=== PATIENT | female | born 1935 | race Caucasian/White ===

== ENCOUNTER → 2020-03-19 10:00 | Outpatient (BNVA) | payer MEDICARE, MEDICAID, SELFPAY | PROVIDERS: Family Provider Nurse Practitioner Family; PCP Nurse Practitioner Family; Visit Provider Internal Medicine Cardiovascular Disease | DX: D64.9 Anemia, unspecified (principal); I48.20 Chronic atrial fibrillation, unspecified; I50.42 Chronic combined systolic (congestive) and diastolic (congestive) heart failure | CPT/HCPCS: 80048; 85025 ==

== ENCOUNTER → 2020-04-14 09:57 | Outpatient (BNVA) | payer MEDICARE, MEDICAID, SELFPAY | PROVIDERS: Family Provider Nurse Practitioner Family; PCP Nurse Practitioner Family; Visit Provider Internal Medicine Cardiovascular Disease | DX: I50.42 Chronic combined systolic (congestive) and diastolic (congestive) heart failure (principal); I42.0 Dilated cardiomyopathy; I48.20 Chronic atrial fibrillation, unspecified | CPT/HCPCS: 80048 ==

== ENCOUNTER 2020-07-08 15:45 | Outpatient (CLI) | payer MEDICARE, MEDICAID, SELFPAY ==
[2020-07-08 16:43] LABS: Basophils % 0.6 %; Eosinophils # 0.1 10^3/uL (0.0-0.8); Eosinophils % 1.4 %; Hematocrit 30.2 % (37.0-47.0); Hemoglobin 7.9 g/dL (11.5-15.3); Lymphocytes # 0.9 10^3/uL (0.8-4.8); Lymphocytes % 12.3 %; Mean Corpuscular HGB Conc 26.2 g/dL (30.0-36.0); Mean Corpuscular Hemoglobin 20.3 pg (28.0-34.0); Mean Corpuscular Volume 77.4 fL (81-99); Mean Platelet Volume 11.9 fL (7.4-10.4); Monocytes # 0.8 10^3/uL (0.2-0.9); Monocytes % 11.5 %; Neutrophils # 5.33 10^3/uL (1.8-7.7); Neutrophils % 73.9 %; Nucleated Red Blood Cells % 0 %; Platelet Count 223 10^3/cmm (130-400); Red Cell Distribution Width 20.7 % (12.1-15.1); White Blood Count 7.2 10^3/uL (4.0-10.0)
[2020-07-08 17:00] LABS: Anion Gap 15.9 (5-19); Blood Urea Nitrogen 39 mg/dL (8-23); Calcium 8.5 mg/dL (8.5-10.5); Carbon Dioxide 22 mmol/L (22-29); Chloride 105 mmol/L (98-107); Ferritin 12 ng/mL (15-150); Glucose 124 mg/dL (65-115); Iron 19 ug/dL (37-145); Osmolality Calculated 299 mOsm/kg (285-295); Potassium 3.9 mmol/L (3.5-5.1); Sodium 139 mmol/L (136-145); Total Iron Binding Capacity 373 mcg/dl; Unsaturated Iron Binding 354 ug/dL (112-347)
[2020-07-08 17:17] LABS: Vitamin B12 819 pg/mL (232-1245)
[2020-07-08 19:30] LABS: Add RBC Morph Yes; Slide Review Slide Review Perform
[2020-07-08 19:31] LABS: RBC Morph Comp No
[2020-07-08 19:46] LABS: Anisocytosis 1+; Hypochromasia 1+; Microcytosis 2+; Poikilocytosis 1+; Target Cells 1+; Tear Drop Cells 1+
== END 2020-07-08 15:46 | disposition home or self-care (01) ==
LOC: LAB 15:49
PROVIDERS: PCP Nurse Practitioner Family; Visit Provider Nurse Practitioner Family
DX: D50.0 Iron deficiency anemia secondary to blood loss (chronic) (principal); I50.22 Chronic systolic (congestive) heart failure
CPT/HCPCS: 80048; 82607; 82728; 83540; 83550; 84443; 85025

== ENCOUNTER → 2020-07-14 07:45 | Day surgery (SDC) | payer MEDICARE, MEDICAID, SELFPAY ==
[2020-07-14 08:31] VITALS: BMI 28.5
[2020-07-14] MEDS: acetaminophen 325 mg Tablet 650 MG PO (10:50)
[2020-07-14] MEDS: diphenhydrAMINE 50 mg/mL SDV 1mL 25 MG IVP (10:51)
[2020-07-14 11:02] VITALS: BP 133/112; PULSE 135; RESP 20; TEMP 36.8; O2SAT 99
--- NOTE | 2020-07-14 11:18 | SUR.PREOP ---
blood was ready for patient. when I returned to start the blood, the pt is in afib with rate at 130-144. Pt has no symptoms. Le Carrizales contacted. She will consult with cardiology for her to be seen while she is here. I was instructed to hold off on starting transfusion. I also told her that her Hgb is 8.2. Pt placed on manager of selection and assessment until able to be seen by cardiology.
[2020-07-14 12:08] VITALS: BP 119/87; PULSE 114; RESP 18; O2SAT 95
--- NOTE | 2020-07-14 12:11 | SUR.PREOP ---
Just spoke with Le Carrizales, order received for 40mg IVP Lasix if patient hasnt already taken home dose, 20mg Labetolol IVP X1, Only transfuse 1 unit.
[2020-07-14] MEDS: labetalol 5 mg/mL SDV 20mL 20 MG IVP (12:30)
--- NOTE | 2020-07-14 14:31 | SUR.PREOP ---
Patient received 10mg Labetalol IVP, blood pressure at 113/96 before admin., 98/74 after 10mg. Did not administer the other 10mg. Heart rate still at 115. OPS policy states we do not transfuse to patients with unstable HR over 100. I advised the patient of this and that she needed to go to the ER for her uncontrolled HR. She stated she really did not want to go to the ER. She requested that I speak with the ordering MOBILITY SCOOTER REPAIRER. I called Le Jamisonkins and reported the medication dose that I administered, what her BP and HR are and our policy that she needed to go to the ER and we were unable to start her blood in our dept. Order received to discharge the patient home, that she will call the patient later after she was home to speak with her about medications and monitoring her BP at home. Pt was agreeable with this order. Pt discontinued from IV, left in wheelchair from admission. Pt discharged to her brother, awake and alert.
== END ==
PROVIDERS: PCP Nurse Practitioner Family; Visit Provider Nurse Practitioner Family
DX: D50.0 Iron deficiency anemia secondary to blood loss (chronic) (principal)
CPT/HCPCS: 86850; 86900; 86920; 96374; 96375; J1200; J3490; P9016

== ENCOUNTER 2021-01-05 22:37 | Inpatient (IN) | payer MEDICARE, MEDICAID, SELFPAY ==
[2021-01-05 22:50] VITALS: BP 96/69; PULSE 84; RESP 16; TEMP 36.5; O2SAT 98; BMI 28.1
--- NOTE | 2021-01-05 23:12 | XRR_ITS ---
PROCEDURE INFORMATION: Exam: XR Chest Exam date and time: 01/05/2021 11:14 PM Age: 85 years old Clinical indication: Shortness of breath; Patient HX: SOB; Additional info: SOB - vard to read please TECHNIQUE: Imaging protocol: XR of the chest. Views: 1 view. COMPARISON: CR Chest 1 [place] [id number] 09/01/2019 1:35 PM FINDINGS: Lungs: Unremarkable. No consolidation. Pleural spaces: Small left pleural effusion. Heart/Mediastinum: There is mild cardiomegaly. Bones/joints: Unremarkable. XR/XR chest 1V portable [id number] IMPRESSION: 1. Mild cardiomegaly. 2. Small left pleural effusion.
--- NOTE | 2021-01-05 23:12 | ECG_ITS ---
[facility] Test Date: 2021-01-05 Pat Name: Janelle Riley Department: Room: Gender: Female Family Practice Nurse Practitioner: : 1935 Requested By: Glo Perla Order Number: [id number] Mera MD: Leigh Ann Morin M.D. Measurements Intervals Lynx Rate: 110 P: KS: QRS: 209 QRSD: 111 T: 87 QT: 350 QTc: 475 Interpretive Statements ATRIAL FIBRILLATION WITH RAPID VENTRICULAR RESPONSE RIGHT AXIS DEVIATION [QRS AXIS > 100] LOW QRS VOLTAGE [QRS DEFLECTION < 0.5/1.0 mV IN LIMB/CHEST LEADS] POSSIBLE ANTERIOR MYOCARDIAL INFARCTION , OF INDETERMINATE AGE [30 ms Q WAVE IN V3/V4, OR R < 0.2 mV IN V4] INFERIOR MYOCARDIAL INFARCTION , PROBABLY OLD [40+ ms Q WAVE AND/OR ST/T ABNORMALITY IN II/aVF] No previous ECG available for comparison Electronically Signed On 01-06-2021 21:07:41 CDT by Leigh Ann Morin M.D. [id number] f
--- NOTE | 2021-01-05 23:15 | ED_ITS ---
HPI - SOB/Dyspnea General: Chief Complaint: Extremity Problem,Nontraumatic Stated Complaint: PT STATES GOUT CAUSING DIFF WALKING Time Seen by Provider: 01/05/21 22:44 Source: patient and family (brother) Mode of arrival: wheelchair History of Present Illness: HPI Narrative: 85-year-old female patient presents to the emergency department with right lower extremity pain. She reports history of gout flares. Her brother, who brought her to the ED, reports increased weakness x24 hours, had to break in her house and get her off the couch because she could not get up . She lives alone. Her brother reports she he has noted increased shortness of breath x5 days. She has known congestive heart failure, gout and chronic anemia that requires blood transfusions at times. He reports has been a while since she has last received blood, states her shortness of breath is very concerning and states she cannot take care of herself at home due to shortness of breath and weakness. Janelle reports this morning, she noted increased pain of the right foot. She states got up out of bed and fell. She denies injury or loss of consciousness. remembers the incident that occurred and why she fell. She denies fever or chills. She reports Tylenol and ibuprofen is not enough to help with pain. Janelle reports increased swelling of the BLE for several days - not able to take lasix today due to inability to carry herself to the bathroom she reports attempted to utilize a walker but has not helped with ambulation and pain. MD elicited complaint: shortness of breath Pertinent past history: congestive heart failure Onset (ago): day(s) Timing: progressively worsening Severity: moderate Exacerbating factors: exertion and movement Relieving factors: rest Known history of: congestive heart failure Associated symptoms: Reports cough, extremity pain (RLE) and orthopnea; Deny abdominal pain, chest congestion, chest pain, diaphoresis, fever(s), lightheadedness, nausea, palpitations, syncope or vomiting Treatment prior to arrival: none Review of Systems General: Reports: 10 or more systems reviewed and unremarkable except in HPI and below Const: Reports: fatigue and malaise; Denies: fever(s), chills or diaphoresis Eyes: Denies: blurry vision, eye discomfort, eye redness or yellow eyes ENMT: Denies: throat pain, dental pain, disequilibrium, nasal discharge or nasal congestion Card: Reports: edema, swelling of feet/ankles, dyspnea on exertion, orthopnea and leg pain with exertion; Denies: chest pain, palpitations, irregular heart rhythm, lightheadedness, syncope or pre-syncope Resp: Reports: dyspnea and non-productive cough; Denies: productive cough, wheezing, pain on inspiration, change in phlegm color or chest congestion GI: Denies: abdominal pain, nausea, vomiting, hematemesis, dysphagia, heartburn, diarrhea or constipation : Denies: difficulty voiding or dysuria Musc: Reports: extremity pain (RLE), extremity swelling, joint pain, joint swelling and muscle weakness Skin/Breast: Reports: erythema and changes in skin color; Denies: rash or pruritus Neuro: Denies: headache(s), weakness in extremities or behavioral changes Psych: Denies: anxiety or depression Paul/Lymph: Denies: easy bruising PFSH ED PFSH: Medical History (Updated 01/06/21 @ 01:22 by NICHOLAS Strong) LIZABETH inhibitor intolerance Anemia Anemia Aortic stenosis MILD Atrial fibrillation, chronic Cardiomyopathy 35-40% CHF (congestive heart failure) COPD (chronic obstructive pulmonary disease) Dizziness Paroxysmal A-fib Pulmonary hypertension Surgical History (Updated 01/06/21 @ 01:08 by Chava Eduardo MD) History of cardiac catheterization Hx of hysterectomy S/P bladder repair S/P hysterectomy Family History Mother CAD (coronary artery disease) Myocardial infarction Father CAD (coronary artery disease) Social History Smoking and tobacco status: former smoker Alcohol intake: never Physical Exam Const: COMMON NORMALS: patient oriented x3 and alert GENERAL APPEARANCE: cooperative, ill appearing and frail appearing; not lethargic ORIENTATION/CONSCIOUSNESS: Yes awake, Yes oriented to person, Yes oriented to place and Yes oriented to time; not confused, not patient obtunded and not lethargic HENMT: COMMON NORMALS: normocephalic, atraumatic, external ears normal and moist oral mucous membranes HEAD & SCALP: normal to inspection, normocephalic, atraumatic and Acrocyanosis present FACE & SINUS: face symmetric and Acrocyanosis present; no erythema and no laceration NOSE: Normal nares present EXTERNAL EAR: Yes external ears normal MOUTH: Normal oral and palatal mucosa present Eye: COMMON NORMALS: Equal, round and reactive pupils present and EOMs intact bilaterally GENERAL EYE: appearance normal, both eyes and all related structures PUPIL: Yes Equal, round and reactive pupils present Neck/C-Spine: COMMON NORMALS: full ROM and no lymphadenopathy GENERAL: Yes normal visual inspection and Yes trachea midline CERVICAL SPINE: Yes cervical ROM normal Lymph: LYMPHATIC: no lymphadenopathy noted Chest: COMMONS NORMALS: normal inspection of the chest and normal palpation of entire chest wall Resp: COMMON NORMALS: normal respiratory effort EFFORT & INSPECTION: Yes able to speak in complete sentences, Yes symmetric chest movement, Yes tachypneic, No respiratory distress, Yes labored and No audible wheezes AUSCULTATION: diminished lung sounds bilateral in the lower lung méndez Cardio: COMMON NORMALS: regular rate, S1 normal heart sound present, S2 normal heart sound present and Peripheral pulses 2+ throughout RATE: regular rate RHYTHM: abnormal rhythm irregularly irregular HEART SOUNDS: S1 normal heart sound present and S2 normal heart sound present PERIPHERAL PULSES: Peripheral pulses 2+ throughout GI: COMMON NORMALS: Soft to palpation and non-tender INSPECTION: Yes normal to inspection, No abdominal wall ecchymosis, No abdominal distension and No visible herniation PALPATION: Yes Soft to palpation : COMMON NORMALS: Yes no CVA tenderness BLADDER/KIDNEY EXAM: Yes no CVA tenderness Back/Pelvis: COMMON NORMALS: no CVA tenderness and thoracic and lumbar spine normal to inspection Extremity: COMMON NORMALS: normal to inspection, capillary refill normal and no calf tenderness GENERAL: Yes normal exam except as noted OTHER: erythema of the rt foot with extension to the akle and lower tib/fib - 1st MTP with erythema and pain, rt foot and ankle tenderness noted, limited dorsi flexion and extension. Right lower extremity with 3+ pitting edema, left lower extremity with 2+ pitting edema, negative calf tenderness bilateral. Neuro: COMMON NORMALS: patient oriented x3 and no focal motor deficits SENSORIUM/ORIENTATION: Yes alert, Yes oriented to person, Yes oriented to place, Yes oriented to time and No lethargic Psych: COMMON NORMALS: mental status grossly normal, Normal thought process present and cooperative ACTIVITY/MOTOR BEHAVIOR: Yes appropriate eye contact THOUGHT PROCESS: Normal thought process present Skin: COMMON NORMALS: turgor normal and no mottling GENERAL SKIN EXAM: turgor normal and ecchymosis (Scattered petechial rash to the face, torso) RASHES: rashes noted (linear with tracking, appears as scabies, back and buttocks) scab Rash type: Yes erosion Rash distribution: Yes linear and Yes clustered Rash surface: Yes dry Rash tenderness: Yes nontender Course Consultations: Consultation #1: Dr Eduardo, hospitalist, discussed history of present illness, patient's weakness and inability to stand/walk, serology and radiology results discussed as well as patient's history of congestive heart failure and pulmonary hypertension. BNP was found to be elevated, patient with atrial fibrillation, congestive heart failure exacerbation, agrees to admit, advised treat scabies with ivermectin, medication is not on formulary, she will be treated with Elimite instead. Time: 01:10 Vital Signs: Vital signs: Vital Signs Temperature 97.7 F 01/05/21 22:50 Pulse Rate 80 01/06/21 01:12 Respiratory Rate 20 H 01/06/21 01:12 Blood Pressure 115/80 01/06/21 01:12 Pulse Oximetry 99 01/06/21 01:12 MDM - SOB/Dyspnea MDM Narrative: Medical decision making narrative: 85-year-old female patient presents to the emergency department with profound weakness, her brother had to break down the door to her home to pick her up off the couch as she could not stand or ambulate. She does live alone. She is found to have gouty arthritis versus cellulitis to the right lower extremity; white blood count elevated 12.9, she did receive her first dose of Rocephin here in the ED. Patient with atrial fibrillation with RVR, heart rate 124-130, IV Cardizem dosed with blood pressure dropped to 89 systolic. She received 500 cc normal saline which helped her blood pressure, normotensive. Chest x-ray revealed small left pleural effusion with cardiomegaly. BNP elevated 9273; CMP with elevated creatinine 2.0. Uric acid 11.4; lactate 1.9. Ultrasound right lower extremity completed secondary to erythema to the distal extremity and increased girth; negative DVT appreciated, she remains on Eliquis due to atrial fibrillation and stroke risks. Chronically anemic with history of transfusions secondary to ROBERT. Hemoglobin 10.5/36.6 hematocrit. Spoke with , hospitalist who agrees to admit patient with exacerbation of CHF and weakness, cellulitis. She was also noted to have scabies infection, she was treated with Elimite, permethrin as ivermectin is not formulary. Lab Data: Labs: Lab Results 01/05/21 01/05/21 01/05/21 Range/Units 23:36 23:36 23:49 WBC 12.8 H (4.0-10.0) 10^3/ uL RBC 4.24 (4.1-5.3) 10^6/u L Hgb 10.5 L (11.5-15.3) g/dL Hct 36.6 L (37.0-47.0) % MCV 86.3 (81-99) fL MCH 24.8 L (28.0-34.0) pg MCHC 28.7 L (30.0-36.0) g/dL RDW 24.1 H (12.1-15.1) % Plt Count 213 (130-400) 10^3/c mm MPV 10.5 H (7.4-10.4) fL Neut % (Auto) 75.5 % Lymph % (Auto) 7.6 % Po[place] % (Auto) 15.8 % Eos % (Auto) 0.3 % Baso % (Auto) 0.4 % Neut # (Auto) 9.63 H (1.8-7.7) 10^3/u L Lymph # (Auto) 1.0 (0.8-4.8) 10^3/u L [place] # (Auto) 2.0 H (0.2-0.9) 10^3/u L Eos # (Auto) 0.0 (0.0-0.8) 10^3/u L Baso # (Auto) 0.1 (0.0-0.1) 10^3/u L Nucleated RBC % (a uto) 0 % Nucleated RBCs # 0.0 /100WBC Sodium 140 (136-145) mmol/L Potassium 4.4 (3.5-5.1) mmol/L Chloride 102 (98-107) mmol/L Carbon Dioxide 24 (22-29) mmol/L Anion Gap 18.4 (5-19) BUN 42 H (8-23) mg/dL Creatinine 2.0 H (0.5-0.9) mg/dL GFR Calculation Not Reportable Glucose 119 H (65-115) mg/dL Calculated Osmolal ity 302 H (285-295) mOsm/k g Lactate 1.9 (0.5-2.2) mmol/L Uric Acid (2.4-5.7) mg/dL Calcium 9.0 (8.5-10.5) mg/dL Total Bilirubin 2.0 H (0.15-1.2) mg/dL AST 20 (0-32) U/L ALT 12 (0-33) U/L Alkaline Phosphata se 97 (35-105) IU/L NT-Pro-B Natriuret Pep 9273 H (0-450) pg/mL Total Protein 7.8 (6.6-8.7) g/dL Albumin 3.8 (3.5-5.2) g/dL Globulin 4.0 (1.3-4.6) g/dL 01/05/21 Range/Units 23:49 WBC (4.0-10.0) 10^3/ uL RBC (4.1-5.3) 10^6/u L Hgb (11.5-15.3) g/dL Hct (37.0-47.0) % MCV (81-99) fL MCH (28.0-34.0) pg MCHC (30.0-36.0) g/dL RDW (12.1-15.1) % Plt Count (130-400) 10^3/c mm MPV (7.4-10.4) fL Neut % (Auto) % Lymph % (Auto) % [place] % (Auto) % Eos % (Auto) % Baso % (Auto) % Neut # (Auto) (1.8-7.7) 10^3/u L Lymph # (Auto) (0.8-4.8) 10^3/u L [place] # (Auto) (0.2-0.9) 10^3/u L Eos # (Auto) (0.0-0.8) 10^3/u L Baso # (Auto) (0.0-0.1) 10^3/u L Nucleated RBC % (a uto) % Nucleated RBCs # /100WBC Sodium (136-145) mmol/L Potassium (3.5-5.1) mmol/L Chloride (98-107) mmol/L Carbon Dioxide (22-29) mmol/L Anion Gap (5-19) BUN (8-23) mg/dL Creatinine (0.5-0.9) mg/dL GFR Calculation Glucose (65-115) mg/dL Calculated Osmolal ity (285-295) mOsm/k g Lactate (0.5-2.2) mmol/L Uric Acid 11.4 H (2.4-5.7) mg/dL Calcium (8.5-10.5) mg/dL Total Bilirubin (0.15-1.2) mg/dL AST (0-32) U/L ALT (0-33) U/L Alkaline Phosphata se (35-105) IU/L NT-Pro-B Natriuret Pep (0-450) pg/mL Total Protein (6.6-8.7) g/dL Albumin (3.5-5.2) g/dL Globulin (1.3-4.6) g/dL Imaging Data^: Xray Ortho: Radiologist's impression: [facility] [address] XRay Report Signed Patient: Janelle Riley Unit #: [id number] : 1935 Age/Sex: 85 / F ADM Date: 01/05/21 Loc: ER Room/Bed: Attending Dr: Ordering Provider/Ordering MD: Glo Draper Date of Service: 01/05/21 Procedure(s): XR foot RT min 3V* 76379 Accession Number(s): [id number] Report Number: [id number] PROCEDURE INFORMATION: Exam: XR Right Foot Exam date and time: 01/05/2021 11:32 PM Age: 85 years old Clinical indication: Right; Patient HX: Worsening ankle and foot pain with swelling and redness. History of gout. ; Additional info: Foot pain/fall - rvard to read TECHNIQUE: Imaging protocol: XR Right foot. Views: 3 or more views. COMPARISON: No relevant prior studies available. FINDINGS: Bones/joints: No bone destruction. No cortical destruction. Soft tissues: There is diffuse soft tissue edema. XR/XR foot RT min 3V* [id number] IMPRESSION: 1. Soft tissue edema without fracture or dislocation. 2. No evidence of osteomyelitis. Dictated By: Viraj Nance Signed By: Viraj Nance Signed Date/Time: 01/06/21 0003 DD/ 0001 Other Imaging: Radiologist's impression: [address] [address] XRay Report Signed Patient: Janelle Riley Unit #: [id number] : 1935 Age/Sex: 85 / F ADM Date: 01/05/21 Loc: ER Room/Bed: Attending Dr: Ordering Provider/Ordering MD: Glo Draper Date of Service: 01/05/21 Procedure(s): XR ankle RT min 3V* 80261 Accession Number(s): [id number] Report Number: [id number] PROCEDURE INFORMATION: Exam: XR Right Ankle Exam date and time: 01/05/2021 11:32 PM Age: 85 years old Clinical indication: Right; Patient HX: Worsening ankle and foot pain with swelling and redness. History of gout. ; Additional info: Fall, ankle pain TECHNIQUE: Imaging protocol: XR Right ankle. Views: 3 or more views. COMPARISON: No relevant prior studies available. FINDINGS: Bones/joints: No acute fracture or dislocation. Soft tissues: Diffuse soft tissue edema is present. XR/XR ankle RT min 3V* [id number] IMPRESSION: 1. No acute fracture or dislocation. 2. Cellulitis. Dictated By: Viraj Nance Signed By: Viraj Nance Signed Date/Time: 01/06/21 0005 DD/ 0003 CXR: Radiologist's impression: [facility] [address] XRay Report Signed Patient: Janelle Riley Unit #: [id number] : 1935 Age/Sex: 85 / F ADM Date: 01/05/21 Loc: ER Room/Bed: Attending Dr: Ordering Provider/Ordering MD: Glo Draper Date of Service: 01/05/21 Procedure(s): XR chest 1V portable [id number] Accession Number(s): [id number] Report Number: [id number] PROCEDURE INFORMATION: Exam: XR Chest Exam date and time: 01/05/2021 11:14 PM Age: 85 years old Clinical indication: Shortness of breath; Patient HX: SOB; Additional info: SOB - vard to read please TECHNIQUE: Imaging protocol: XR of the chest. Views: 1 view. COMPARISON: CR Chest 1 [place] [id number] 09/01/2019 1:35 PM FINDINGS: Lungs: Unremarkable. No consolidation. Pleural spaces: Small left pleural effusion. Heart/Mediastinum: There is mild cardiomegaly. Bones/joints: Unremarkable. XR/XR chest 1V portable [id number] IMPRESSION: 1. Mild cardiomegaly. 2. Small left pleural effusion. Dictated By: Viraj Nance Signed By: Viraj Nance Signed Date/Time: 01/05/212344 DD/ 43 Discharge Plan Discharge Patient Disposition: Admitted As Inpatient Clinical Impression: Weakness, Atrial fibrillation with RVR, Cellulitis of right foot Acute exacerbation of CHF (congestive heart failure) Qualifiers: Heart failure type: combined systolic and diastolic Qualified Code(s): I50.43 - Acute on chronic combined systolic (congestive) and diastolic (congestive) heart failure Condition: Stable Coding Level of Care Code ED Land Classifier for g Fwd Exam Comprehensive
--- NOTE | 2021-01-05 23:18 | USR_ITS ---
PROCEDURE INFORMATION: Exam: US Duplex Right Lower Extremity Veins, Limited Exam date and time: 01/05/2021 11:50 PM Age: 85 years old Clinical indication: Pain; Leg, lower and foot; Right; Patient HX: H/o gout; Additional info: Erythema, swelling rle TECHNIQUE: Imaging protocol: Real-time Duplex ultrasound of the Right Lower Extremity with 2-D rosario scale, color Doppler flow and spectral waveform analysis with image documentation. Limited exam was focused on the right lower extremity veins. COMPARISON: No relevant prior studies available. FINDINGS: Right deep veins: Unremarkable. The common femoral, femoral, proximal profunda femoral and popliteal veins are patent without thrombus. Normal Doppler waveforms. Normal compressibility and/or augmentation response. Right superficial veins: Unremarkable. Saphenofemoral junction is patent without thrombus. Soft tissues: There is mild soft tissue [place]. US/[place] [id number] IMPRESSION: No evidence of deep vein thrombosis. Mild soft tissue edema.
--- NOTE | 2021-01-05 23:26 | XRR_ITS ---
PROCEDURE INFORMATION: Exam: XR Right Foot Exam date and time: 01/05/2021 11:32 PM Age: 85 years old Clinical indication: Right; Patient HX: Worsening ankle and foot pain with swelling and redness. History of gout. ; Additional info: Foot pain/fall - rvard to read TECHNIQUE: Imaging protocol: XR Right foot. Views: 3 or more views. COMPARISON: No relevant prior studies available. FINDINGS: Bones/joints: No bone destruction. No cortical destruction. Soft tissues: There is diffuse soft tissue edema. XR/XR foot RT min 3V* [id number] IMPRESSION: 1. Soft tissue edema without fracture or dislocation. 2. No evidence of osteomyelitis.
--- NOTE | 2021-01-05 23:26 | XRR_ITS ---
PROCEDURE INFORMATION: Exam: XR Right Ankle Exam date and time: 01/05/2021 11:32 PM Age: 85 years old Clinical indication: Right; Patient HX: Worsening ankle and foot pain with swelling and redness. History of gout. ; Additional info: Fall, ankle pain TECHNIQUE: Imaging protocol: XR Right ankle. Views: 3 or more views. COMPARISON: No relevant prior studies available. FINDINGS: Bones/joints: No acute fracture or dislocation. Soft tissues: Diffuse soft tissue edema is present. XR/XR ankle RT min 3V* 19674 IMPRESSION: 1. No acute fracture or dislocation. 2. Cellulitis.
[2021-01-05] MEDS: HYDROcodone-acetaminophen 5-325 mg Tablet 1 TAB PO (23:27)
[2021-01-05 23:41] LABS: Basophils # 0.1 10^3/uL (0.0-0.1); Basophils % 0.4 %; Eosinophils % 0.3 %; Hematocrit 36.6 % (37.0-47.0); Hemoglobin 10.5 g/dL (11.5-15.3); Lymphocytes % 7.6 %; Mean Corpuscular HGB Conc 28.7 g/dL (30.0-36.0); Mean Corpuscular Hemoglobin 24.8 pg (28.0-34.0); Mean Corpuscular Volume 86.3 fL (81-99); Mean Platelet Volume 10.5 fL (7.4-10.4); Monocytes % 15.8 %; Neutrophils # 9.63 10^3/uL (1.8-7.7); Neutrophils % 75.5 %; Nucleated Red Blood Cells % 0 %; Platelet Count 213 10^3/cmm (130-400); Red Blood Count 4.24 10^6/uL (4.1-5.3); Red Cell Distribution Width 24.1 % (12.1-15.1); White Blood Count 12.8 10^3/uL (4.0-10.0)
[2021-01-05 23:52] VITALS: BP 100/86; PULSE 124; RESP 18; O2SAT 94
[2021-01-06] VITALS (7 sets, daily range): BP systolic 96–118; BP diastolic 66–80; PULSE 80–122; RESP 16–20; TEMP 36.4–37.1; O2SAT 90–99
[2021-01-06 00:06] LABS: Lactate (Lactic Acid level) 1.9 mmol/L (0.5-2.2)
[2021-01-06 00:08] LABS: Alanine Aminotransferase 12 U/L (0-33); Albumin Level 3.8 g/dL (3.5-5.2); Alkaline Phosphatase 97 IU/L (35-105); Anion Gap 18.4 (5-19); Aspartate Amino Transferase 20 U/L (0-32); Blood Urea Nitrogen 42 mg/dL (8-23); Carbon Dioxide 24 mmol/L (22-29); Chloride 102 mmol/L (98-107); Glucose 119 mg/dL (65-115); NT Pro B Type Natriuretic Pept 9273 pg/mL (0-450); Osmolality Calculated 302 mOsm/kg (285-295); Potassium 4.4 mmol/L (3.5-5.1); Sodium 140 mmol/L (136-145); Total Protein 7.8 g/dL (6.6-8.7)
[2021-01-06] MEDS: sodium chloride 0.9% 500 ML 999 ML IV (00:20)
[2021-01-06 00:41] LABS: Uric Acid 11.4 mg/dL (2.4-5.7)
[2021-01-06] MEDS: cefTRIAXone 1,000 MG in sodium chloride 0.9% (plus) 50 ML 100 MG IV (00:56)
--- NOTE | 2021-01-06 01:05 | PM.HP ---
Providers/Chief Complaint Primary Care Provider: Le Carrizales NP Chief Complaint: PT STATES GOUT CAUSING DIFF WALKING History of Present Illness Janelle Riley is a 85 year old female who has history of atrial fibrillation chronic anticoagulation with Eliquis, chronic kidney disease, pulmonary hypertension, mildly reduced ejection fraction heart failure presented today with chief complaint of worsening weakness and bilateral great toe pain. Patient is stating that she has been compliant with her medications, she has not expressed any insomnia or PND she does endorse shortness of breath on exertion, she is denying chest pain, fever. She present to the hospital because of worsening great toe pains bilaterally which she is attributed to gout. She is able to sleep supine with one pillow, no active chest discomfort. She is also complaining of excessive irritation of her skin she scratches her back a lot. Denies bedbugs. Diagnosis in the ER revealed mild leukocytosis, stable hemoglobin, normal chest x-ray without pulmonary edema, BNP elevated however clinically she looks euvolemic, at the time of presentation she was in A. fib RVR heart rate 120s for which she received Cardizem bolus which reduce her blood pressure and then she required 500 mL bolus to bring her pressure up. Uric acid 11.3, she is allergic to allopurinol and amiodarone, she also endorsed falling for which she required foot and ankle x-ray which showed swelling without any fractures. Review of Systems Const: Reports: body aches, change in appetite, fatigue and malaise; Denies: fever(s) Eyes: Denies: change in vision ENMT: Denies: throat pain Card: Reports: irregular heart rhythm, edema, swelling of feet/ankles and dyspnea on exertion; Denies: syncope or orthopnea Resp: Reports: dyspnea; Denies: non-productive cough GI: Denies: abdominal pain : Denies: flank pain Musc: Reports: extremity pain, joint pain, joint swelling and joint stiffness; Denies: neck pain Skin/Breast: Reports: skin tenderness, skin swelling, new lesions, lesions and changes in skin color Neuro: Denies: headache(s) Psych: Denies: anxiety Endo: Denies: polyuria Paul/Lymph: Denies: easy bruising All/Imm: Denies: urticaria Medications/Allergies Home Medications Medication Instructions Recorded Confirmed Last Taken Type apixaban 2.5 mg tablet 2.5 mg PO BID 12/17/19 05/19/20 Unknown History lisinopril 2.5 mg tablet 2.5 mg PO DAILY 12/17/19 05/19/20 Unknown History metoprolol tartrate 50 mg tablet 50 mg PO BID 12/17/19 05/19/20 Unknown History pantoprazole 40 mg tablet,delayed 40 mg PO DAILY 12/17/19 05/19/20 Unknown History release acetaminophen 325 mg tablet 325 mg PO QID PRN 01/14/20 05/19/20 Unknown History diltiazem HCl 120 mg 120 mg PO DAILY 90 Days #90 cap 01/15/20 05/19/20 Unknown Rx capsule,extended release 24 hr furosemide 40 mg tablet 40 mg PO BID 90 Days #180 tab 01/15/20 05/19/20 Unknown Rx isosorbide mononitrate 30 mg 15 mg PO DAILY #45 tab 02/24/20 05/19/20 Unknown Rx tablet,extended release 24 hr potassium chloride 10 mEq 20 meq PO BID #360 tab 07/06/20 Unknown Rx tablet,extended release Allergies Allergy/AdvReac Type Severity Reaction Status Date / Time allopurinol Allergy Severe rash, Verified 01/05/21 23:14 excoriation of skin amiodarone Allergy Intermediate rash Verified 01/05/21 23:14 digoxin Allergy Unknown Unknown Verified 01/05/21 22:55 lisinopril Allergy Unknown Unknown Verified 01/05/21 22:55 milk Allergy Unknown Unknown Verified 01/05/21 22:55 Penicillins Allergy Unknown Unknown Verified 01/05/21 22:55 PFSH Acute PFSH: Medical History LIZABETH inhibitor intolerance Anemia Anemia Aortic stenosis MILD Atrial fibrillation, chronic Cardiomyopathy 35-40% CHF (congestive heart failure) COPD (chronic obstructive pulmonary disease) Dizziness Paroxysmal A-fib Pulmonary hypertension Surgical History History of cardiac catheterization Hx of hysterectomy S/P bladder repair S/P hysterectomy Family History Mother CAD (coronary artery disease) Myocardial infarction Father CAD (coronary artery disease) Social History Smoking and tobacco status: former smoker Alcohol intake: never Vitals/I&O/Wt Last Vital Signs Temp 97.7 F 01/05/21 22:50 Pulse 124 H 01/05/21 23:52 Resp 18 01/05/21 23:52 BP 100/86 01/05/21 23:52 Pulse Ox 94 01/05/21 23:52 Weight last 48 hrs Weight 67.585 kg Physical Exam Narrative: EXAM NARRATIVE: Very pleasant elderly female was laying in supine position with one pillow no orthopnea PND does not look fluid overloaded was saturating well on room air her nasal cannula was not in her nostrils Variable S1-S2 systolic murmur appreciated clinically looks euvolemic with slightest bit of edema in her legs bilaterally Great toe redness, hyperemia no purulence, joint swelling, tenderness to palpation No vascular compromise no signs of gangrene or ischemia Multiple scratch pat, pruritic rash Bilateral breath sounds without audible stridor or wheezing Abdomen soft nontender bowel sounds present central obesity Appropriate mood and affect EOMI, PERRLA Awake alert oriented x3 GCS 15 Data : 01/05/21 23:36 01/05/21 23:36 A&P Assessment and plan (1) Acute gout: Status: Acute (2) Atrial fibrillation with RVR: Status: Acute (3) Pruritic rash: Status: Acute Additional A&P Information Acute gout Patient is allergic to allopurinol I would use colchicine and prednisone therapeutic regimen Patient was explained side effect of colchicine Not a candidate to receive NSAIDs because of worsening kidney function Discontinue Lasix to avoid gout flareup, clinically she is euvolemic with slightest bit of edema in her lower extremities I do believe her cellulitis is secondary to gout which needs anti-inflammatory but options are limited because of creatinine/kidney dysfunction Ideally she should get febuxostat which we do not have in formulary A. fib RVR: Heart rate 120 on admission improved with Cardizem bolus Current heart rate 60-80, A. fib Continue Eliquis reduced dose Pruritic rash Concern for scabies, patient is denying bedbug We will give her 1 dose of permethrin topical Exertional shortness of breath Has history of mild aortic stenosis, pulmonary hypertension and with A. fib RVR these are the causes of her exertional shortness of breath currently she saturating well on room air, I do believe controlling heart rate would be prudent to avoid pulmonary edema currently chest x-ray is clear She also has mild reduced EF heart failure currently well compensated Chronic anemia: Stable Goals of care: Discussed with the patient: Full code Cardiac diet DVT prophylaxis not indicated because of Eliquis Attestations Medical Necessity Statement*: Anticipating discharge in less than 48 hours currently need management of acute gout flareup Time Spent in Patient Care: (>than 50% of time spent in counselling and/or direct pt care on unit). 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
[2021-01-06] MEDS: permethrin cream 5% 60 gm 1 APPLIC TOPICAL (02:45)
[2021-01-06] MEDS: colchicine 0.6 mg Tablet PO ×2 (03:35→09:00)
[2021-01-06 05:31] LABS: Basophils % 0.4 %; Eosinophils # 0.1 10^3/uL (0.0-0.8); Eosinophils % 0.6 %; Hematocrit 32.1 % (37.0-47.0); Hemoglobin 9.1 g/dL (11.5-15.3); Lymphocytes # 1.1 10^3/uL (0.8-4.8); Lymphocytes % 10.5 %; Mean Corpuscular HGB Conc 28.3 g/dL (30.0-36.0); Mean Corpuscular Hemoglobin 25.1 pg (28.0-34.0); Mean Corpuscular Volume 88.7 fL (81-99); Mean Platelet Volume 10.1 fL (7.4-10.4); Monocytes # 1.9 10^3/uL (0.2-0.9); Monocytes % 18.4 %; Neutrophils # 7.34 10^3/uL (1.8-7.7); Neutrophils % 69.7 %; Nucleated Red Blood Cells % 0 %; Platelet Count 163 10^3/cmm (130-400); Red Blood Count 3.62 10^6/uL (4.1-5.3); Red Cell Distribution Width 24.1 % (12.1-15.1); White Blood Count 10.5 10^3/uL (4.0-10.0)
[2021-01-06 05:52] LABS: Anion Gap 14.4 (5-19); Blood Urea Nitrogen 43 mg/dL (8-23); Calcium 8.6 mg/dL (8.5-10.5); Carbon Dioxide 24 mmol/L (22-29); Chloride 105 mmol/L (98-107); Glucose 110 mg/dL (65-115); Osmolality Calculated 299 mOsm/kg (285-295); Potassium 4.4 mmol/L (3.5-5.1); Sodium 139 mmol/L (136-145)
[2021-01-06] MEDS: sennosides-docusate Tablet 1 TAB PO (08:46)
[2021-01-06] MEDS: metoprolol tartrate 50 mg Tablet PO ×2 (08:46→17:16)
[2021-01-06] MEDS: pantoprazole DR 40 mg Tablet PO (08:46)
[2021-01-06] MEDS: apixaban 5 mg Tablet 2.5 MG PO ×2 (08:46→17:16)
[2021-01-06] MEDS: predniSONE 20 mg Tablet 60 MG PO (08:46)
--- NOTE | 2021-01-06 12:41 | USCV_ITS ---
[place], [place] Age: 85 Gender: F : 1935 Exam Date: 01/06/2021 14:54 Ordering Phys: Long Quintero MD Technologist: Exam [place] [facility] [place]: SOB BP: 134 / 79 HR: 102 Rhythm: Sinus Technical Quality: Adequate MEASUREMENTS (Male / Female) Normal Values 2D ECHO LV Diastolic Diameter PLAX 2.9 cm 4.2 - 5.9 / 3.9 - 5.3 cm LV Systolic Diameter PLAX 2.4 cm IVS Diastolic Thickness 1.1 cm 0.6 - 1.0 / 0.6 - 0.9 cm IVS Systolic Thickness 1.3 cm LVPW Diastolic Thickness 1.1 cm 0.6 - 1.0 / 0.6 - 0.9 cm LVPW Systolic Thickness 1.3 cm LVOT Diameter 2.0 cm LV Ejection Fraction 2D Teich 37.5 % LV Ejection Fraction MOD 2C 30.5 % LV Ejection Fraction 2C AL 28.9 % LA Diameter 4.0 cm LA Width 4.8 cm LA Height 5.6 cm RA Width 4.0 cm RA Height 5.5 cm Aorta at Sinotubular Diameter 1.9 cm M-MODE LV Diastolic Diameter MM 3.6 cm 4.2 - 5.9 / 3.9 - 5.3 cm LV Systolic Diameter MM 2.1 cm LV Ejection Fraction MM Teich 72.2 % IVS Diastolic Thickness MM 1.1 cm 0.6 - 1.0 / 0.6 - 0.9 cm IVS Systolic Thickness MM 1.5 cm LVPW Diastolic Thickness MM 1.4 cm 0.6 - 1.0 / 0.6 - 0.9 cm LVPW Systolic Thickness MM 1.9 cm RV Diastolic Diameter MM 2.0 cm Aortic Annulus Diameter 3.2 cm LA Ao Ratio MM 1.3 MV E Point Septal Separation 1.3 cm DOPPLER AV Peak Velocity 159.3 cm/s LVOT Peak Velocity 70.0 cm/s AV Area Cont Eq vti 1.3 cm squared AV Area Cont Eq pk 1.4 cm squared MV Area PHT 5.0 cm squared Mitral E to A Ratio 2.3 MV E' Velocity 63.5 cm/s Mitral E to MV E' Ratio 13.8 Mitral E to LV E' Lateral Ratio 13.4 Mitral E to LV E' Septal Ratio 14.3 TR Peak Velocity 352.3 cm/s TR Peak Gradient 49.7 mmHg TV Peak E Velocity 91.0 cm/s Right Atrial Pressure 3.0 mmHg Pulmonary Artery Systolic Pressu 52.7 mmHg PV Peak Velocity 110.0 cm/s FINDINGS Left Ventricle Normal left ventricular cavity size. Normal left ventricular systolic function. Left ventricular ejection fraction is estimated at 60 %. Echogenic mass observed in the left ventricle could be subvalvular calcified apparatus in the suboptimal images, further exploration with contrast echo or transesophageal echocardiogram performed if clinically indicated for suspicion of bacterial endocarditis or thromboembolic phenomena. Grade IV/IV diastolic dysfunction (irreversible restrictive filling pattern), severely elevated filling pressures. Right Ventricle Right ventricle not well visualized. Moderate pulmonary hypertension, RVSP 52.7 mmHg. Right Atrium Normal right atrial size. Left Atrium Moderately increased left atrial size. Mitral Valve Severely thickened mitral valve. Severe mitral annular calcification. Mitral valve is not well visualized cannot assess regurgitation or stenosis. Aortic Valve Aortic valve not well visualized. Tricuspid Valve Severe tricuspid valve regurgitation. Pulmonic Valve Pulmonic valve not well visualized. Pericardium Normal pericardium without effusion. Aorta Aorta not well visualized. CONCLUSIONS 1-Normal left ventricular cavity size. Normal left ventricular systolic function. Left ventricular ejection fraction is estimated at 60 %. Echogenic mass observed in the left ventricle could be subvalvular calcified apparatus in these suboptimal images, further exploration with contrast echo or transesophageal echocardiogram performed if clinically indicated for suspicion of endocarditis or thromboembolic phenomena. Grade IV/IV diastolic dysfunction (irreversible restrictive filling pattern), severely elevated filling pressures. 2-Right ventricle not well visualized. Moderate pulmonary hypertension, RVSP 52.7 mmHg. 3-Valves were not well visualized due to suboptimal images. 4-There is no pericardial effusion. 5-When compared to the prior echocardiogram dated January 30, 2019 these images are of suboptimal quality however left ventricle ejection appear to be improved from moderately reduced 40% to normal 60% now. Chava Bermeo MD (Electronically Signed) Final Date: 06 January 2021 22:33 S
--- NOTE | 2021-01-06 12:42 | ECG_ITS ---
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 Measurements Intervals [place] Rate: 103 P: AR: QRS: 188 QRSD: 126 T: 104 QT: 391 QTc: 513 Interpretive Statements ATRIAL FIBRILLATION WITH RAPID VENTRICULAR RESPONSE POSSIBLE RIGHT VENTRICULAR HYPERTROPHY POSSIBLE ANTERIOR MYOCARDIAL INFARCTION, OF INDETERMINATE AGE Compared to ECG 01/05/2021 23:39:10 Right-axis deviation no longer present Myocardial infarct finding still present Electronically Signed On 01-06-2021 21:05:13 CDT by Leigh Ann Morin M.D. [id number]
--- NOTE | 2021-01-06 12:48 | PM.PN ---
Subjective Subjective: Interval history: Patient was examined this morning, she tells me that she lives in [place], she lives by herself, but she has brothers that help her out daily, no recent falls, no recent injuries, no fevers, chills She tells me that she has a gouty attack in her right lower extremity, right foot, and all the digits, is really red, hot, swollen, but since getting the prednisone she feels a lot better She denies any scabies, denies any lice, she does state that her right shoulder and the right part of her back itches, she had a rash over that area, and it continues to itch, she has multiple scratches over that area She tells me that her A. fib is up and down, recently she has been having more episodes of a fast heart rate, they come and go whenever she tells me, this is one of the reason what brought her to the hospital, she thinks that maybe the gout exacerbated her A. fib She also tells me that intermittently she has been having episodes of chest pain, substernal, nonradiating, no lightheadedness, dizziness, no nausea, no vomiting, does have shortness of breath with exertion, she does use Lasix, she does have bilateral pitting edema Vitals/I&O/Wt Last Vital Signs Temp 97.6 F 01/06/21 11:38 Pulse 89 01/06/21 11:38 Resp 18 01/06/21 11:38 BP 105/67 01/06/21 11:38 Pulse Ox 90 01/06/21 11:38 01/05/21 01/06/21 01/06/21 22:59 06:59 14:59 Intake Total 600 / 600 180 / 180 Balance 600 / 600 180 / 180 Weight last 48 hrs Weight 67.585 kg Physical Exam Const: COMMON NORMALS: no acute distress and patient oriented x3 HENMT: COMMON NORMALS: normocephalic HEAD & SCALP: normocephalic Neck/C-Spine: COMMON NORMALS: no JVD Resp: COMMON NORMALS: normal respiratory effort, No retractions and No use of accessory muscles AUSCULTATION: crackles Cardio: COMMON NORMALS: no JVD, regular rate, regular rhythm, S1 normal heart sound present and S2 normal heart sound present RATE: regular rate RHYTHM: regular rhythm HEART SOUNDS: S1 normal heart sound present and S2 normal heart sound present GI: COMMON NORMALS: Normal to inspection, nondistended, normoactive bowel sounds present, Soft to palpation, non-tender, No hepatosplenomegaly present, no masses and no bruits PALPATION: Yes Soft to palpation and Yes No hepatosplenomegaly present Extremity: NARRATIVE EXTREMITY EXAM: 1+ pitting edema Right lower extremity, erythema, warmth, swelling, exquisite tenderness of first 3 digits Neuro: COMMON NORMALS: patient oriented x3 Psych: COMMON NORMALS: mental status grossly normal Skin: NARRATIVE SKIN EXAM: Does have a rash, in a dermatomal fashion over the right shoulder, has lesions are crusted over Data : 01/06/21 05:17 01/06/21 05:17 A&P Assessment and plan (1) Acute gout: -NSAIDs are contraindicated given SHAQUILLE -I would avoid colchicine given her anemia, and her current shingles outbreak -Continue prednisone 60 mg daily Status: Acute (2) Atrial fibrillation with RVR: -Intermittent A. fib with RVR, currently A. fib heart rates in the 90s -Continue metoprolol 50 twice daily -Continue telemetry monitoring -We will have PT OT work with patient, see what her heart rates do -Monitor heart rates for the next 24 hours -Continue Eliquis 2.5 twice daily Status: Acute (3) Pruritic rash: -Seems like a shingles outbreak, continue isolation Status: Acute (4) Chest pain: -Reports chest pain -No active chest pain Plan: -Continue serial troponins, serial EKGs -Aspirin, statin, metoprolol -Monitor for chest pain -Cardiac echo Status: Acute (5) Acute exacerbation of CHF (congestive heart failure): -Has minimal crackles on exam, some pulmonary vascular congestion, bilateral pitting edema -We will place on fluid restrictions -Hold Lasix as creatinine is up to 2.2, her baseline creatinine is anywhere between 1.9-2 -Monitor respiratory status closely Status: Acute Qualifiers: Heart failure type: combined systolic and diastolic Qualified Code(s): I50.43 - Acute on chronic combined systolic (congestive) and diastolic (congestive) heart failure (6) Aortic stenosis: Status: Acute Qualifiers: Cardiac valve disease etiology: nonrheumatic Qualified Code(s): I35.0 - Nonrheumatic aortic (valve) stenosis (7) Pulmonary hypertension: Status: Acute (8) Acute kidney injury superimposed on chronic kidney disease: -Creatinine 2.2, baseline is 1.9-2, monitor creatinine, hold off on fluids due to risk of fluid overload Status: Acute (9) Shingles outbreak: -Right shoulder, right back -Continue isolation precautions -Renally dosed acyclovir to 1 g every 24 Status: Acute Additional A&P Information Chronic anemia: Stable Goals of care: Discussed with the patient: Full code Cardiac diet DVT prophylaxis not indicated because of Eliquis Attestations Medical Necessity Statement*: Patient requires hospitalization, inpatient, greater than 2 midnights for chest pain, A. fib with RVR, CHF, gout flare, shingles outbreak Coding Level of Care Code Acute Delivery Consultant for [facility] Fwd Diagnoses Acute gout M10.9 Atrial fibrillation with RVR I48.91 Pruritic rash L28.2 Chest pain R07.9 Acute exacerbation of CHF (congestive heart failure) I50.43 Heart failure type: combined systolic and diastolic Aortic stenosis I35.0 Cardiac valve disease etiology: nonrheumatic Pulmonary hypertension I27.20 Acute kidney injury superimposed on chronic kidney disease N17.9; N18.9 Shingles outbreak B02.9
[2021-01-06 13:47] LABS: Troponin(5th) Baseline 36 ng/L (0-10)
[2021-01-06] MEDS: acyclovir 400 mg Tablet 1000 MG PO (14:03)
[2021-01-06] MEDS: atorvastatin 40 mg Tablet PO (14:03)
[2021-01-06] MEDS: aspirin 81 mg EC Tablet PO (14:03)
--- NOTE | 2021-01-06 14:42 | ECG_ITS ---
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 Measurements Intervals [place] Rate: 117 P: CT: QRS: 183 QRSD: 122 T: 84 QT: 365 QTc: 510 Interpretive Statements ATRIAL FIBRILLATION WITH RAPID VENTRICULAR RESPONSE POSSIBLE RIGHT VENTRICULAR HYPERTROPHY [SOME/ALL OF: PROMINENT R IN V1, LATE TRANSITION, RAD, TAMMY, SSS] ANTEROSEPTAL MYOCARDIAL INFARCTION [40+ ms Q WAVE IN V1-V4], PROBABLY OLD Compared to ECG 01/06/2021 13:20:55 No significant changes Electronically Signed On 01-06-2021 22:34:26 CDT by Leigh Ann Morin M.D. [id number]
--- NOTE | 2021-01-06 15:16 | PC.NURSE ---
PT HAS COMPLAINED OF NAUSEA X2 AND DIRECTOR OF DIGITAL MARKETING OFFERED TO GET ORDER FOR ZOFRAN, PT REFUSED BOTH TIMES.
[2021-01-06 16:27] LABS: Troponin 5 2HR 33.93 ng/L (0-10)
[2021-01-06 16:29] LABS: Troponin 5 2HR Delta -2.07 ABS# (0-10)
--- NOTE | 2021-01-06 18:42 | ECG_ITS ---
[facility] ED Test Date: 2021-01-06 Pat Name: Janelle Riley Department: Room: 257 Gender: Female Consultant Nurse: : 1935 Requested By: Long Quintero Order Number: [id number] Mera MD: Leigh Ann Morin M.D. Measurements Intervals [place] Rate: 109 P: 71 OR: 200 QRS: 177 QRSD: 121 T: 78 QT: 372 QTc: 502 Interpretive Statements Atrial fibrillation with rapid ventricular response POSSIBLE RIGHT VENTRICULAR HYPERTROPHY ANTEROSEPTAL MYOCARDIAL INFARCTION, OF INDETERMINATE AGE Compared to ECG 01/06/2021 15:10:38 Myocardial infarct finding still present Electronically Signed On 02-08-2021 17:49:13 CDT by Leigh Ann Morin M.D. [id number]
[2021-01-06 20:15] LABS: Troponin 5 6HR 31.98 ng/L (0-10)
[2021-01-06 20:33] LABS: Troponin 5 6HR Delta -4.02 ng/L (0-12)
[2021-01-07 03:51] VITALS: BP 87/60; PULSE 113; RESP 16; TEMP 36.4; O2SAT 90
[2021-01-07 06:27] LABS: Basophils % 0.1 %; Hematocrit 31.9 % (37.0-47.0); Hemoglobin 9.1 g/dL (11.5-15.3); Lymphocytes # 0.6 10^3/uL (0.8-4.8); Lymphocytes % 6.2 %; Mean Corpuscular HGB Conc 28.5 g/dL (30.0-36.0); Mean Corpuscular Hemoglobin 25.2 pg (28.0-34.0); Mean Corpuscular Volume 88.4 fL (81-99); Mean Platelet Volume 11.1 fL (7.4-10.4); Monocytes # 1.3 10^3/uL (0.2-0.9); Neutrophils # 8.19 10^3/uL (1.8-7.7); Neutrophils % 80.3 %; Nucleated Red Blood Cells % 0 %; Platelet Count 174 10^3/cmm (130-400); Red Blood Count 3.61 10^6/uL (4.1-5.3); Red Cell Distribution Width 23.7 % (12.1-15.1); White Blood Count 10.2 10^3/uL (4.0-10.0)
[2021-01-07 06:51] LABS: Alanine Aminotransferase 8 U/L (0-33); Alkaline Phosphatase 75 IU/L (35-105); Anion Gap 16.3 (5-19); Aspartate Amino Transferase 14 U/L (0-32); Blood Urea Nitrogen 56 mg/dL (8-23); Calcium 8.1 mg/dL (8.5-10.5); Carbon Dioxide 23 mmol/L (22-29); Chloride 102 mmol/L (98-107); Globulin 3.3 g/dL (1.3-4.6); Glucose 143 mg/dL (65-115); Magnesium 2.1 mg/dL (1.7-2.3); Osmolality Calculated 300 mOsm/kg (285-295); Phosphorus 5.8 mg/dL (2.5-4.5); Potassium 5.3 mmol/L (3.5-5.1); Sodium 136 mmol/L (136-145); Total Bilirubin 1.1 mg/dL (0.15-1.2); Total Protein 6.3 g/dL (6.6-8.7)
[2021-01-07 06:52] LABS: NT Pro B Type Natriuretic Pept 7772 pg/mL (0-450)
[2021-01-07 07:52] VITALS: BP 110/63; PULSE 70; RESP 19; TEMP 36.8; O2SAT 94
[2021-01-07 08:17] LABS: Creatine Phosphokinase 29 U/L (26-192)
[2021-01-07] MEDS: predniSONE 20 mg Tablet 60 MG PO (09:20)
[2021-01-07] MEDS: apixaban 5 mg Tablet 2.5 MG PO ×2 (09:20→18:07)
[2021-01-07] MEDS: sodium chloride 0.9% 1,000 ML 50 ML IV (09:20)
[2021-01-07] MEDS: aspirin 81 mg EC Tablet PO (09:21)
[2021-01-07] MEDS: sennosides-docusate Tablet 1 TAB PO (09:21)
[2021-01-07] MEDS: metoprolol tartrate 50 mg Tablet PO ×2 (09:21→18:07)
[2021-01-07] MEDS: pantoprazole DR 40 mg Tablet PO (09:21)
--- NOTE | 2021-01-07 09:33 | US_ITS ---
WS: [id number] RENAL ULTRASOUND HISTORY: agustin COMPARISON: None available. TECHNIQUE: 2-D and color Doppler imaging of the kidney submitted. Right kidney: 9.7 cm x 5.0 cm x 5.3 cm. Increased echogenicity. No cortical thinning or obstruction. Left kidney: Cannot adequately identify the LEFT kidney. There is a vague hypoechoic area in the LEFT upper quadrant which could be associated with the spleen, kidney or colon. Aorta: Normal. Urinary Bladder: Escobar catheter present. US/US renal BI* [id number] IMPRESSION: 1. Mild chronic medical renal disease RIGHT kidney with no obstruction. 2. LEFT kidney is not identified. Possible mass LEFT upper quadrant. This coul d be associated with the nonvisualized kidney, spleen or colon. For further sergey luation consider CT evaluation.
[2021-01-07] MEDS: dilTIAZem 30 mg Tablet PO ×3 (10:12→21:02)
--- NOTE | 2021-01-07 11:43 | PC.NURSE ---
Dr. Quintero made aware of bailey placement with urine return but very slight and not enough for urine sample, verbalized understanding and ordered a physician consult. will continue to monitor.
[2021-01-07 12:00] VITALS: BP 110/68; PULSE 105; RESP 19; TEMP 36.5; O2SAT 93
--- NOTE | 2021-01-07 12:52 | PM.PN ---
Subjective Subjective: Interval history: patient was seen this morning, she tells me she worked well with physiocal therapy, she feels better, her heart rates did increase overnight, no fever, no chills, no cough, no abdominal pain, no diarrhea, she tells that the nurses overnight were worried about her declining urine output, no dysuria, no flank pain Vitals/I&O/Wt Last Vital Signs Temp 97.7 F 01/07/21 12:00 Pulse 105 H 01/07/21 12:00 Resp 19 H 01/07/21 12:00 BP 110/68 01/07/21 12:00 Pulse Ox 93 01/07/21 12:00 01/06/21 01/07/21 01/07/21 22:59 06:59 14:59 Intake Total 540 / 720 150 / 150 Output Total 400 / 400 200 / 600 Balance 140 / 320 -200 / 120 150 / 150 Weight last 48 hrs Weight 67.585 kg Physical Exam Const: COMMON NORMALS: no acute distress and patient oriented x3 Neck/C-Spine: COMMON NORMALS: no JVD Resp: COMMON NORMALS: normal respiratory effort, No retractions and No use of accessory muscles AUSCULTATION: crackles Cardio: COMMON NORMALS: no JVD, regular rate, regular rhythm, S1 normal heart sound present and S2 normal heart sound present RATE: regular rate RHYTHM: regular rhythm HEART SOUNDS: S1 normal heart sound present and S2 normal heart sound present GI: COMMON NORMALS: Normal to inspection, nondistended, normoactive bowel sounds present, Soft to palpation, non-tender, No hepatosplenomegaly present, no masses and no bruits PALPATION: Yes Soft to palpation and Yes No hepatosplenomegaly present Extremity: NARRATIVE EXTREMITY EXAM: 1+ pitting edema Right lower extremity, erythema, warmth, swelling, exquisite tenderness of first 3 digits Neuro: COMMON NORMALS: patient oriented x3 Psych: COMMON NORMALS: mental status grossly normal Skin: NARRATIVE SKIN EXAM: Does have a rash, in a dermatomal fashion over the right shoulder, has lesions are crusted over Urinary Catheter Management^: Escobar: Cath Placed During This Visit: yes Urinary Catheter Date of Insertion: 01/07/21 Urinary Catheter Time of Insertion: 09:46 Data : 01/07/21 05:37 01/07/21 05:37 A&P Assessment and plan (1) Acute gout: -NSAIDs are contraindicated given SHAQUILLE -I would avoid colchicine given her anemia, and her current shingles outbreak -Continue prednisone 60 mg daily Status: Acute (2) Atrial fibrillation with RVR: -Intermittent A. fib with RVR, currently A. fib heart rates in the 90s -Continue metoprolol 50 twice daily -will add cardizem 30mg q6h due to afib events overnight -Continue telemetry monitoring -We will have PT OT work with patient, see what her heart rates do -Monitor heart rates for the next 24 hours -Continue Eliquis 2.5 twice daily Status: Acute (3) Pruritic rash: -Seems like a shingles outbreak, continue isolation Status: Acute (4) Chest pain: -Reports chest pain -No active chest pain Plan: -Continue 6 hour troponin 31, delta of 4, ekg no acute st-t wave changes -Aspirin, statin, metoprolol -Monitor for chest pain -Cardiac echo: -shows improved EF of 60%, MOD pulmonary HTN Status: Acute (5) Acute exacerbation of CHF (congestive heart failure): -Has minimal crackles on exam, some pulmonary vascular congestion, bilateral pitting edema -We will place on fluid restrictions -Hold Lasix as creatinine is up to 2.6, her baseline creatinine is anywhere between 1.9-2 -Monitor respiratory status closely Status: Acute Qualifiers: Heart failure type: combined systolic and diastolic Qualified Code(s): I50.43 - Acute on chronic combined systolic (congestive) and diastolic (congestive) heart failure (6) Aortic stenosis: Status: Acute Qualifiers: Cardiac valve disease etiology: nonrheumatic Qualified Code(s): I35.0 - Nonrheumatic aortic (valve) stenosis (7) Pulmonary hypertension: Status: Acute (8) Acute kidney injury superimposed on chronic kidney disease: -Creatinine 2.6, baseline is 1.9-2, monitor creatinine, start gentle fluid at 50cc/hr, monitor for fluid overload, renal us, urine studies, nephrology consulted -etiology dehydration, prerenal Status: Acute (9) Shingles outbreak: -Right shoulder, right back -Continue isolation precautions -Renally dosed acyclovir to 1 g every 24, hold for now as crcl is 15 Status: Acute (10) Mass of left cardiac ventricle: -patient echo shows a LV mass -patient tells me that Dr. Bermeo was worried about a mass/blood clott in her heart, so she was referred to [facility], and she had an extensive work up, which was unremarkable -will look at old records, will talk to Dr. Bermeo Status: Acute (11) Low blood pressure: -blood pressure are soft, patient feels fine, tells me her blood pressure are always low -will check la, procal, crp -getting fluids Status: Acute Additional A&P Information Chronic anemia: Stable Goals of care: Discussed with the patient: Full code Cardiac diet DVT prophylaxis not indicated because of Eliquis Attestations Medical Necessity Statement*: patient requires hospitalization lof LV mass, worsening arf, atrial fibrillation, low blood pressures Coding Level of Care Code Acute Diesel Bus Mechanic for Chg Fwd Diagnoses Acute gout M10.9 Atrial fibrillation with RVR I48.91 Pruritic rash L28.2 Chest pain R07.9 Acute exacerbation of CHF (congestive heart failure) I50.43 Heart failure type: combined systolic and diastolic Aortic stenosis I35.0 Cardiac valve disease etiology: nonrheumatic Pulmonary hypertension I27.20 Acute kidney injury superimposed on chronic kidney disease N17.9; N18.9 Shingles outbreak B02.9 Mass of left cardiac ventricle I51.89 Low blood pressure I95.9
[2021-01-07] MEDS: atorvastatin 40 mg Tablet PO (12:54)
--- NOTE | 2021-01-07 13:24 | PC.CHAP ---
Pastoral Care Encounter/Spiritual Assessment Type of Contact [] Declined bench boring machine operator visit [] Patient/Family/Request visit [] Outpatient visit [] Follow-up visit [] Physician referral [] Code/Alert [] Routine visit [] Staff referral [] Actively dying [] Patient sleeping [] Family support [] [] Out of room [] Palliative care [] [] Receiving care in room [] Pre-surgical visit [] Trauma [] Long length of stay [] ICU visit [xx] Other: Patient placed in isolation Relational/Emotional Strength [] Patient feels connected with others/family/visitors/staff [] Distress [] Loneliness/isolation [] Abandonment Spirituality of Patient [] Person of Jalyn [] Attends Mosque of their Jalyn [] Believes in Prayer [] Reads Bible or Jain materials [] There are Spiritual issues to be addressed Payroll Tax Specialist Interventions [] Prayer [] Active listening [] Non-anxious presence [] Spiritual/emotional support [] Crisis/trauma care [] Spiritual counseling [] Bereavement support [] Provided bereavement packet [] Provided Bible/devotional materials [] Provided toy/stuffed animal, coloring book to patient or family member [] Provided Communion [] Anointing/[place] [] Salvation [] Completed spiritual assessment [] Other: Impact on Illness or Injury [] Angry [] Fearful [] Anxious [] Often cries [] Exhaustion [] Unable to work [] Unable to attend protestant [] Unable to walk/stand [] Unable to read [] Unable to drive [] Unable to eat/drink [] Unable to sleep [] Unable to be with family [] Patient intubated [] Other: Summary Payroll Tax Specialist visit not permitted. Time spent with patient
--- NOTE | 2021-01-07 13:28 | USCV_ITS ---
[place], [place] Age: 85 Gender: F : 1935 Exam Date: 01/07/2021 14:20 Ordering Phys: Long Quintero MD Technologist: Carlene Ruiz [place] [facility] [place]: LV MASS BP: 93 / 64 HR: 82 Rhythm: Sinus Technical Quality: Fair MEASUREMENTS (Male / Female) Normal Values 2D ECHO LV Diastolic Diameter PLAX 2.8 cm 4.2 - 5.9 / 3.9 - 5.3 cm LV Systolic Diameter PLAX 2.4 cm IVS Diastolic Thickness 1.1 cm 0.6 - 1.0 / 0.6 - 0.9 cm IVS Systolic Thickness 1.8 cm LVPW Diastolic Thickness 1.6 cm 0.6 - 1.0 / 0.6 - 0.9 cm LVPW Systolic Thickness 2.1 cm LVOT Diameter 2.0 cm LV Ejection Fraction 2D Teich 35.0 % LA Diameter 4.3 cm LA Width 2.9 cm LA Height 4.6 cm RA Width 3.5 cm RA Height 3.9 cm Aorta at Sinotubular Diameter 2.2 cm M-MODE LV Diastolic Diameter MM 3.2 cm 4.2 - 5.9 / 3.9 - 5.3 cm LV Systolic Diameter MM 1.8 cm LV Ejection Fraction MM Teich 76.2 % IVS Diastolic Thickness MM 0.9 cm 0.6 - 1.0 / 0.6 - 0.9 cm IVS Systolic Thickness MM 1.1 cm LVPW Diastolic Thickness MM 1.1 cm 0.6 - 1.0 / 0.6 - 0.9 cm LVPW Systolic Thickness MM 1.4 cm Aortic Annulus Diameter 2.4 cm LA Ao Ratio MM 2.1 MV E Point Septal Separation 1.6 cm FINDINGS Left Ventricle Right Ventricle Right Atrium Left Atrium Mitral Valve Aortic Valve Tricuspid Valve Pulmonic Valve Pericardium Aorta CONCLUSIONS Limited echo to assess LV function and subvalvular apparatus of the LV. Left-ventricular ejection fraction to moderately reduced 45%. There is a global hypokinesis. There is thickening of subvalvular apparatus of the mitral valve which is less likely to be vegetation and mostly it is due to calcification. Clinical correlation advised. When compared to the prior echocardiogram there is no significant change. Chava Bermeo MD (Electronically Signed) Final Date: 07 January 2021 20:01 S
--- NOTE | 2021-01-07 13:40 | PC.NURSE ---
Dr. Quintero notified that patient still has very minimal urine output in bailey bag, and patient complaining of sore and dry throat and requesting throat lozenges. awaiting new orders.
[2021-01-07 14:16] LABS: Lactate (Lactic Acid level) 1.5 mmol/L (0.5-2.2)
[2021-01-07] MEDS: perflutren protein-a microsphr 0.22 mg/mL SDV 3 mL IV (14:44)
[2021-01-07 14:48] LABS: Procalcitonin 0.35 ng/mL (0-0.5)
[2021-01-07 14:58] LABS: C Reactive Protein 22.5 mg/L (0.0-4.9)
[2021-01-07 15:34] VITALS: BP 103/56; PULSE 89; RESP 18; TEMP 36.4; O2SAT 90
--- NOTE | 2021-01-07 15:47 | CTR_ITS ---
PROCEDURE INFORMATION: Exam: CT Abdomen And Pelvis Without Contrast Exam date and time: 01/07/2021 4:22 PM Age: 85 years old Clinical indication: Abnormal findings; Abnormal radiologic finding of the abdomen; Radiologic exam and body structure: Ultrasound; Prior surgery; Surgery date: 6+ months; Surgery type: Hyst, bladder; Patient HX: Luq mass on u/s w gross hematuria TECHNIQUE: Imaging protocol: Computed tomography of the abdomen and pelvis without contrast. Radiation optimization: All CT scans at this facility use at least one of these dose optimization techniques: automated exposure control; mA and/or kV adjustment per patient size (includes targeted exams where dose is matched to clinical indication); or iterative reconstruction. COMPARISON: US renal BI* [id number] 01/07/2021 2:09 PM RADIATION DOSE METRICS: Total DLP (mGy-cm): 1397.33 FINDINGS: Pleural spaces: Small left pleural effusion. Heart: Trace pericardial effusion. Mild multichamber cardiac dilation. Mediastinal space: Large hiatal hernia. Liver: Normal. No mass. Gallbladder and bile ducts: Cholelithiasis. Gallbladder wall difficult to define secondary to motion distortion artifact. Mild thickening cannot be excluded. No dilation of biliary system. Pancreas: Normal. No ductal dilation. Spleen: No splenomegaly. Small scattered splenic calcified granulomas. Adrenal glands: Normal. No mass. Kidneys and ureters: Moderate to severe bilateral renal cortical atrophy. Left kidney is smaller than right kidney. No hydronephrosis. No renal stones. Round circumscribed exophytic mass extends exophytically from the lateral lower pole of the left kidney which is likely the structure imaged by the ultrasound. The mass is homogeneous in density, however non simple. Intermediate Hounsfield units throughout lesion. Stomach and bowel: Severe diverticulosis coli in the sigmoid colon. No bowel obstruction. No bowel perforation. Moderate fecal volume. No focal inflammation of bowel loops. Appendix: No evidence of appendicitis. Intraperitoneal space: Trace pelvic free fluid. Vasculature: Large volume diffuse atherosclerosis. No aneurysm. Lymph nodes: Unremarkable. No enlarged lymph nodes. Urinary bladder: Bladder decompressed by Escobar catheter. Not further characterized. Reproductive: Hysterectomy. Bones/joints: Bones are demineralized. No focal suspicious bone lesion.The lumbar spine demonstrates marked discogenic and apophyseal joint degenerative changes at multiple levels. No acute pathologic fracture. Rightward convex scoliosis of mid lumbar spine. Soft tissues: Anasarca. Atrophy of lumbar paraspinal muscles without focal lesion. Ventral abdominal wall intact. CT/CT abdomen pelvis wo con [id number] IMPRESSION: 1. Non simple left renal mass. Possibly proteinaceous cyst, however lesion is incompletely characterized by this study and also incompletely characterized by the renal ultrasound. Renal neoplasm is not excluded. 2. Recommend correlation with a multi phasic CT or MRI of the kidneys without and with intravenous contrast on an outpatient common non emergent basis. 3. Mild 3rd spacing of fluid. 4. Cholelithiasis. Gallbladder is relatively contracted, but cannot exclude mild wall thickening. 5. Incidental, large hiatal hernia. COMMENTS: Consistent with the [employer]'s Incidental Findings Committee white paper (J Am Barbara Radiol 2018): Any incidental renal lesion less than 1 cm or classified as too small to characterize, or any incidental cystic renal lesion characterized as simple-appearing, is likely benign. No follow-up imaging is recommended for these lesions per consensus recommendations based on imaging criteria. Radiation Dose CTDIVOL = (mGy): DLP = 1397.33 (mGy-cm)
--- NOTE | 2021-01-07 16:30 | PC.NURSE ---
telenephrologist rounding on patient, shown catheter urine output and discussed decreased urine output and bloody urine, new orders received see MAR for further details.
--- NOTE | 2021-01-07 16:55 | PC.RESP ---
Pulmonary Rehab information sent to patient.
--- NOTE | 2021-01-07 17:20 | PM.CONSULT ---
Providers/Reason For Consult Consulting Physican/Specialty*: Nephro Reason for Consult*: Eval for renal failure Attending Physician: Long Quintero MD Primary Care Provider: Le Carrizales NP History of Present Illness History of Present Illness Thank you for consultation, today had the pleasure of reviewing this 85-year-old female for evaluation of renal failure. She was admitted to our facility with weakness, bilateral great toe pain. She does have chronic lower extremity edema which is still present. On arrival she was found to have what appeared to be gout for which she received treatment with prednisone. She also had atrial fibrillation with RVR, she subsequently received Cardizem and she is receiving metoprolol twice daily. Echocardiogram has been performed which demonstrates normal left ventricular systolic function, grade 4 diastolic dysfunction severely elevated filling pressures, RVSP of 52.7mmHg. Admission serum creatinine was 2 mg/dL, is now 2.6 mg/dL her urine output today has been very poor, only 20 mL over the last 10 hours. Her baseline serum creatinine appears to be roughly 1.9 mg/dL is measured in July of last year. She denies any uremic symptoms, she is breathing comfortably on room air at this time. She denies any recent exposure to nephrotoxic agents including anti-inflammatory medications etc. Since her pulses came down, her blood pressure is also quite soft, last blood pressure was 103/56. Review of Systems Narrative: ROS - 12 point review of systems completed per HPI and subjective assessment, this includes Constitutional: Weakness, fatigue Respiratory: No SOB on exertion, comfortable at rest CardioVasc: No chest pain, palpitations Gastrointestinal: No nausea, no vomiting Neurological: No seizures, no AMS Derm: No new rashes, lesions or wounds Immunological: No seasonal and no food allergies Meds/Allergies Home Medications and Allergies Home Medications Medication Instructions Recorded Confirmed Last Taken Type apixaban 2.5 mg tablet 2.5 mg PO BID@,12/17/19 01/06/21 Unknown History lisinopril 2.5 mg tablet 2.5 mg PO DAILY 12/17/19 01/06/21 Unknown History metoprolol tartrate 50 mg tablet 50 mg PO BID 12/17/19 01/06/21 Unknown History pantoprazole 40 mg tablet,delayed 40 mg PO BID@12/17/19 01/06/21 Unknown History release acetaminophen 325 mg tablet 325 mg PO QID PRN 01/14/20 01/06/21 Unknown History furosemide 40 mg tablet 40 mg PO BID 90 Days #180 tab 01/15/20 01/06/21 Unknown Rx potassium chloride 20 meq PO BID@08,17 01/06/21 01/06/21 Unknown History Allergies Allergy/AdvReac Type Severity Reaction Status Date / Time allopurinol Allergy Severe rash, Verified 01/05/21 23:14 excoriation of skin amiodarone Allergy Intermediate rash Verified 01/05/21 23:14 digoxin Allergy Unknown Unknown Verified 01/05/21 22:55 lisinopril Allergy Unknown Unknown Verified 01/05/21 22:55 milk Allergy Unknown Unknown Verified 01/05/21 22:55 Penicillins Allergy Unknown Unknown Verified 01/05/21 22:55 Current Medications Current Medications Generic Name Dose Route Start Last Admin Trade Name Freq PRN Reason Stop Dose Admin Acyclovir 1,000 mg 01/06/21 13:00 01/06/21 14:03 Acyclovir 400 Mg Tablet PO 1,000 mg Q24H RITA Administration Apixaban 2.5 mg 01/06/21 09:00 01/07/21 09:20 Apixaban 5 Mg Tablet PO 2.5 mg BID RITA Administration Aspirin 81 mg 01/06/21 12:55 01/07/21 09:21 Aspirin 81 Mg Ec Tablet PO 81 mg DAILY RITA Administration Atorvastatin Calcium 40 mg 01/06/21 13:00 01/07/21 12:54 Atorvastatin 40 Mg Tablet PO 40 mg Q24H RITA Administration Diltiazem HCl 30 mg 01/07/21 10:00 01/07/21 16:23 Diltiazem 30 Mg Tablet PO 30 mg Q6H RITA Administration Sodium Chloride 1,000 mls @ 50 mls/hr 01/07/21 08:00 01/07/21 09:20 Sodium Chloride 0.9% IV 50 mls/hr .Q20H RITA Administration Metoprolol Tartrate 50 mg 01/06/21 09:00 01/07/21 09:21 Metoprolol Tartrate 50 Mg Tablet PO 50 mg BID RITA Administration Pantoprazole Sodium 40 mg 01/06/21 09:00 01/07/21 09:[address] 40 Mg Tablet PO 40 mg DAILY RITA Administration Prednisone 60 mg 01/06/21 09:00 01/07/21 09:20 Prednisone 20 Mg Tablet PO 60 mg DAILY RITA Administration Senna/Docusate Sodium 1 tab 01/06/21 09:00 01/07/21 09:21 Sennosides-Docusate Tablet PO 1 tab DAILY RITA Administration PFSH Acute PFSH: Medical History LIZABETH inhibitor intolerance Anemia Anemia Aortic stenosis MILD Atrial fibrillation, chronic Cardiomyopathy 35-40% CHF (congestive heart failure) COPD (chronic obstructive pulmonary disease) Dizziness Paroxysmal A-fib Pulmonary hypertension Surgical History History of cardiac catheterization Hx of hysterectomy S/P bladder repair S/P hysterectomy Family History Mother CAD (coronary artery disease) Myocardial infarction Father CAD (coronary artery disease) Social History Smoking and tobacco status: former smoker Alcohol intake: never Vitals/I&O/Wt Last Vital Signs Temp 97.5 F L 01/07/21 15:34 Pulse 89 01/07/21 15:34 Resp 18 01/07/21 15:34 BP 103/56 01/07/21 15:34 Pulse Ox 90 01/07/21 15:34 01/07/21 01/07/21 01/07/21 06:59 14:59 22:59 Intake Total 200 / 200 Output Total 200 / 600 Balance -200 / 120 200 / 200 Weight last 48 hrs Weight 67.585 kg Physical Exam Narrative: EXAM NARRATIVE: Constitutional: Awake, comfortable HEENT: Wet mucosa, no jvp, non icteric Lungs: Bilaterally clear without discernible wheeze, rales in all lung zones CVS: S1 S2, no murmurs Abdo: Soft, BS ok Ext 4: 1-2+ edema, peripheral perfusion with no cyanosis Neurological: Grossly non-focal Urinary Catheter Management^: Escobar: Cath Placed During This Visit: yes Urinary Catheter Date of Insertion: 01/07/21 Urinary Catheter Time of Insertion: 09:46 Data Micro: Micro: Microbiology 01/07/21 15:03 Blood Culture - Pr eliminary Blood SPECIMEN [facility] LETA 01/07/21 14:59 Blood Culture - Pr eliminary Blood SPECIMEN [facility] LETA A&P Additional A&P Information 1. Acute renal failure She now has anuric renal failure over the course of today, having only made 20 mL of urine over the last 10 hours. She is at very high risk of developing overt renal failure requiring renal replacement therapy. In all likelihood this is secondary to have very high right-sided filling pressures, and has soft systolic pressure i.e. she only has a systolic pressure of roughly 100 and yet her RVSP is at 50 providing a perfusion pressure that is severely blunted. She needs aggressive diuresis to pull her out of this. I will give her Lasix 80 mg IV push as well as metolazone 10 mg p.o. This does not work, it is likely that she will need ultrafiltration to pull off some volume so that she can perfuse and improve cardiovascular hemodynamics. Renal imaging noted, questionable mass on the left side, CT scan pending We will send urine for urinalysis, urine sodium, creatinine 2. A. fib with RVR and hemodynamics Currently on combination therapy with metoprolol, diltiazem, defer management to medical team. Midodrine 10mg po tid to help support pressure 3. Chemistry Minor aberration in chemistry, noncritical, will continue to follow. Thank you for consultation, as always it is a pleasure to follow these cases with you Tapan Bell MD Nephrology [phone] Patient seen and examined via telemedicine, with the assistance of the bedside RN > 25 min spent in evaluation and mgmt of patient Consult Attestations Medical Necessity Statement: Eval for renal failure Coding Level of Care Code Acute Train Operations Manager for Gaby Curry
[2021-01-07 17:28] LABS: Bilirubin Urine 1+ (Negative); Blood Urine 3+ (Negative); Glucose Urine UA Norm (Normal); Ketones Urine Negative (Negative); Leukocyte Esterase Urine Trace (Negative); Nitrate Urine Negative (Negative); Protein Urine 3+ (Negative); Urine Appearance Cloudy (CLEAR); Urine Color Dark Yellow (Yellow); Urobilinogen Urine 1 mg/dL (Negative); pH Urine 5 (5-7)
[2021-01-07 17:45] LABS: RBC Urine TOO NUMEROUS TO CNT /hpf (0-2)
[2021-01-07 17:46] LABS: Add Urine Culture? Yes; Bacteria Urine 3+ /hpf; Squamous Epithelial Cell Urine 0-4 /hpf (0-5); WBC Urine 0-4 /hpf (0-5)
[2021-01-07 18:07] LABS: Potassium, Radom Urine 44 mmol/L; Urine Creatinine 138 mg/dL (28-217); Urine Random Chloride 15 mmol/L; Urine Random Sodium 19 mmol/L
[2021-01-07] MEDS: midodrine 5 mg TABLET 10 MG PO ×2 (18:07→21:02)
[2021-01-07] MEDS: metOLazone 5 MG Tablet 10 MG PO (18:07)
[2021-01-07] MEDS: FUROsemide 10 mg/mL SDV 10mL 80 MG IVP (18:07)
[2021-01-07 18:24] LABS: Urea Nitrogen,Urine Random 310 mg/dL
[2021-01-07 18:39] LABS: Eosinophil Urine No Eosinophils Seen; Urine Eosinophil Count 0 (0-0)
[2021-01-07 18:56] LABS: Anion Gap 17.8 (5-19); Blood Urea Nitrogen 64 mg/dL (8-23); Calcium 7.8 mg/dL (8.5-10.5); Carbon Dioxide 20 mmol/L (22-29); Chloride 100 mmol/L (98-107); Creatine Phosphokinase 38 U/L (26-192); Glucose 141 mg/dL (65-115); Osmolality Calculated 297 mOsm/kg (285-295); Potassium 4.8 mmol/L (3.5-5.1); Sodium 133 mmol/L (136-145)
--- NOTE | 2021-01-07 19:03 | PC.NURSE ---
report given to lien relinquished care of patient.
[2021-01-07 19:51] VITALS: BP 101/67; PULSE 78; RESP 19; TEMP 36.4; O2SAT 91
[2021-01-08] VITALS (11 sets, daily range): BP systolic 92–128; BP diastolic 56–72; PULSE 47–94; RESP 14–20; TEMP 36–36.6; O2SAT 92–95
[2021-01-08] MEDS: dilTIAZem 30 mg Tablet PO ×2 (05:17→09:45)
[2021-01-08 07:58] LABS: Basophils % 0.2 %; Hematocrit 32.1 % (37.0-47.0); Hemoglobin 9.3 g/dL (11.5-15.3); Lymphocytes # 0.7 10^3/uL (0.8-4.8); Lymphocytes % 6.2 %; Mean Corpuscular Volume 86.3 fL (81-99); Monocytes % 9.2 %; Neutrophils # 8.94 10^3/uL (1.8-7.7); Neutrophils % 84.1 %; Nucleated Red Blood Cells % 0 %; Platelet Count 213 10^3/cmm (130-400); Red Blood Count 3.72 10^6/uL (4.1-5.3); Red Cell Distribution Width 23.6 % (12.1-15.1); White Blood Count 10.6 10^3/uL (4.0-10.0)
[2021-01-08] MEDS: sennosides-docusate Tablet 1 TAB PO (08:22)
[2021-01-08] MEDS: aspirin 81 mg EC Tablet PO (08:22)
[2021-01-08] MEDS: metOLazone 5 MG Tablet 10 MG PO (08:22)
[2021-01-08] MEDS: apixaban 5 mg Tablet 2.5 MG PO ×2 (08:23→17:16)
[2021-01-08] MEDS: pantoprazole DR 40 mg Tablet PO (08:23)
[2021-01-08] MEDS: predniSONE 20 mg Tablet 60 MG PO (08:23)
[2021-01-08] MEDS: midodrine 5 mg TABLET 10 MG PO ×2 (08:23→16:46)
[2021-01-08] MEDS: metoprolol tartrate 50 mg Tablet PO (08:26)
[2021-01-08 08:29] LABS: Alanine Aminotransferase 9 U/L (0-33); Albumin Level 2.9 g/dL (3.5-5.2); Alkaline Phosphatase 70 IU/L (35-105); Anion Gap 17.7 (5-19); Aspartate Amino Transferase 15 U/L (0-32); Blood Urea Nitrogen 70 mg/dL (8-23); Carbon Dioxide 20 mmol/L (22-29); Chloride 99 mmol/L (98-107); Globulin 3.1 g/dL (1.3-4.6); Glucose 118 mg/dL (65-115); NT Pro B Type Natriuretic Pept 7946 pg/mL (0-450); Osmolality Calculated 296 mOsm/kg (285-295); Phosphorus 6.3 mg/dL (2.5-4.5); Potassium 4.7 mmol/L (3.5-5.1); Sodium 132 mmol/L (136-145)
[2021-01-08] MEDS: dilTIAZem 30 mg Tablet 60 MG PO ×2 (10:08→16:45)
[2021-01-08] MEDS: cefTRIAXone 1,000 MG in sodium chloride 0.9% (plus) 50 ML 100 MG IV (10:08)
--- NOTE | 2021-01-08 10:50 | PM.PN ---
Subjective Subjective: Interval history: feels a little better with improved discomfort in her legs. High dose diuretics given yesterday with minimal urine output. LE edema but no SOB at rest. No overt uremic Sx. Vitals/I&O/Wt Last Vital Signs Temp 97.5 F L 01/08/21 07:34 Pulse 76 01/08/21 10:25 Resp 17 01/08/21 07:34 BP 119/72 01/08/21 08:25 Pulse Ox 93 01/08/21 07:34 01/07/21 01/08/21 01/08/21 22:59 06:59 14:59 Intake Total 460 / 660 120 / 120 Output Total 150 / 170 Balance 440 / 640 -150 / 490 120 / 120 Physical Exam Narrative: EXAM NARRATIVE: Constitutional: Awake, comfortable HEENT: Wet mucosa, no jvp, non icteric Lungs: Bilaterally clear without discernible wheeze, rales in all lung zones CVS: S1 S2, no murmurs Abdo: Soft, BS ok Ext 4: 1-2+ edema, peripheral perfusion with no cyanosis Neurological: Grossly non-focal Urinary Catheter Management^: Escobar: Cath Placed During This Visit: yes Reason for Continuing Indwelling Catheter: Other Urinary Catheter Date of Insertion: 01/07/21 Urinary Catheter Time of Insertion: 09:46 Data : 01/08/21 07:42 01/08/21 07:42 Micro: Microbiology 01/07/21 16:25 Urine Culture - Preliminary Urine Catheterized 01/07/21 15:03 Blood Culture - Preliminary Blood SPECIMEN COLLECTED 01/07/21 14:59 Blood Culture - Preliminary Blood SPECIMEN COLLECTED A&P Additional A&P Information 1. Acute renal failure she continues to have very poor urine output and she is at very high risk of developing overt renal failure requiring renal replacement therapy. In all likelihood this is secondary to have very high right-sided filling pressures, and has soft systolic pressure i.e. she only has a systolic pressure of roughly 100 and yet her RVSP is at 50 providing a perfusion pressure that is severely blunted. Low urinary sodium consistent with renal hypoperfusion. Repeat dosing of Lasix 80 mg IV push as well as metolazone 10 mg p.o. Fixed dose dopamine may augment systolic pressures further. ?? Empirical trial of therapy for PAH ie Sildenafil. This does not work, it is likely that she will need ultrafiltration to pull off some volume so that she can perfuse and improve cardiovascular hemodynamics. Renal imaging noted, large indeterminate cyst seen in the left kidney; I agree without patient follow up 2. A. fib with RVR and hemodynamics Currently on combination therapy with metoprolol, diltiazem, defer management to medical team. Midodrine 10mg po tid to help support pressure 3. Chemistry Minor aberration in chemistry, noncritical, will continue to follow. Thank you for consultation, as always it is a pleasure to follow these cases with you Tapan Bell MD Nephrology [phone] Patient seen and examined via telemedicine, with the assistance of the bedside RN > 25 min spent in evaluation and mgmt of patient Attestations Medical Necessity Statement*: eval for renal failure Coding Level of Care Code Acute Passenger Attendant for Gaby Curry
[2021-01-08] MEDS: FUROsemide 10 mg/mL SDV 10mL 80 MG IVP (10:56)
--- NOTE | 2021-01-08 13:01 | PC.NURSE ---
report called to [facility] , they are still waiting for room to be cleaned. stated will call when it is clean
[2021-01-08] MEDS: atorvastatin 40 mg Tablet PO (13:28)
--- NOTE | 2021-01-08 14:56 | P.PN_ITS ---
Subjective Subjective: Interval history: This morning patient was examined, she is alert oriented x3, follows all commands, she remains afebrile overnight, blood pressures are on the lower end of normal, has been started on midodrine, a bit bradycardic, but she has no complaints, she tells me she is feeling fine, denies chest pain, denies palpitations, no lightheadedness, no dizziness, no nausea, no vomiting, no abdominal pain Vitals/I&O/Wt Last Vital Signs Temp 96.8 F L 01/08/21 12:30 Pulse 52 L 01/08/21 12:30 Resp 17 01/08/21 12:30 BP 92/60 01/08/21 12:30 Pulse Ox 95 01/08/21 12:30 01/07/21 01/08/21 01/08/21 22:59 06:59 14:59 Intake Total 460 / 660 240 / 240 Output Total 20 / 20 150 / 170 150 / 150 Balance 440 / 640 -150 / 490 90 / 90 Physical Exam Const: COMMON NORMALS: no acute distress and patient oriented x3 HENMT: COMMON NORMALS: normocephalic HEAD & SCALP: normocephalic Neck/C-Spine: COMMON NORMALS: no JVD Resp: COMMON NORMALS: normal respiratory effort, No retractions, No use of accessory muscles and clear to auscultation bilaterally AUSCULTATION: clear to auscultation bilaterally Cardio: COMMON NORMALS: no JVD, S1 normal heart sound present and S2 normal heart sound present RATE: bradycardic RHYTHM: abnormal rhythm HEART SOUNDS: S1 normal heart sound present and S2 normal heart sound present GI: COMMON NORMALS: Normal to inspection, nondistended, normoactive bowel sounds present, Soft to palpation, non-tender, No hepatosplenomegaly present, no masses and no bruits PALPATION: Yes Soft to palpation and Yes No hepatosplenomegaly present Extremity: COMMON NORMALS: capillary refill normal, no clubbing, cyanosis or edema, no calf tenderness and no pedal edema NARRATIVE EXTREMITY EXAM: 1+ pitting edema Right lower extremity, erythema, warmth, swelling, exquisite tenderness of first 3 digits Neuro: COMMON NORMALS: patient oriented x3 Psych: COMMON NORMALS: mental status grossly normal Skin: NARRATIVE SKIN EXAM: Does have a rash, in a dermatomal fashion over the right shoulder, has lesions are crusted over Urinary Catheter Management^: Escobar: Cath Placed During This Visit: yes Reason for Continuing Indwelling Catheter: Other Urinary Catheter Date of Insertion: 01/07/21 Urinary Catheter Time of Insertion: 09:46 Data : 01/08/21 07:42 01/08/21 07:42 Micro: Microbiology 01/07/21 16:25 Urine Culture - Preliminary Urine Catheterized 01/07/21 15:03 Blood Culture - Preliminary Blood SPECIMEN COLLECTED 01/07/21 14:59 Blood Culture - Preliminary Blood SPECIMEN COLLECTED A&P Assessment and plan (1) Acute gout: -NSAIDs are contraindicated given SHAQUILLE -I would avoid colchicine given her anemia, and her current shingles outbreak -Continue prednisone 60 mg daily Status: Acute (2) Atrial fibrillation with RVR: -Intermittent A. fib with RVR, currently A. fib heart rates in the 50-90's -Given low blood pressures, will stop metoprolol -Increase Cardizem to 60 every 6 hours -Continue telemetry monitoring -We will have PT OT work with patient, see what her heart rates do -Continue Eliquis 2.5 twice daily Status: Acute (3) Pruritic rash: -Seems like a shingles outbreak, continue isolation Status: Acute (4) Chest pain: -Reports chest pain -No active chest pain Plan: -Continue 6 hour troponin 31, delta of 4, ekg no acute st-t wave changes -Aspirin, statin -Had a negative coronary angiogram in 2019 -Monitor for chest pain -Cardiac echo: -shows improved EF of 60%, MOD pulmonary HTN Status: Acute (5) Acute exacerbation of CHF (congestive heart failure): -Discussed with Dr. Lomax, patient's ejection fraction on echocardiogram with contrast shows an EF of 45%, global hypokinesis, no change from prior echocardiogram a year ago -Has minimal crackles on exam, some pulmonary vascular congestion, bilateral pitting edema, does have third spacing of fluids on imaging -We will place on fluid restrictions -Was started on Lasix 80 mg overnight, however creatinine has worsened to 3.1, minimal urine output -We will get another dose of Lasix today, on midodrine, will be placed on dopamine drip -Monitor respiratory status closely Status: Acute Qualifiers: Heart failure type: combined systolic and diastolic Qualified Code(s): I50.43 - Acute on chronic combined systolic (congestive) and diastolic (congestive) heart failure (6) Aortic stenosis: Status: Acute Qualifiers: Cardiac valve disease etiology: nonrheumatic Qualified Code(s): I35.0 - Nonrheumatic aortic (valve) stenosis (7) Pulmonary hypertension: -Had a right heart cath by Dr. Wood back in March 2019 which showed moderate pulmonary hypertension, which was not reversible, mixed -She was referred to the pulmonary hypertension clinic at [facility] -She tells me that she had extensive testing, but they told her that they could do nothing new for her, she was supposed to follow-up about a year back however she has not Status: Acute (8) Acute kidney injury superimposed on chronic kidney disease: -Creatinine 3.1, baseline is 1.9-2, did not respond to fluid therapy -Concerns for elevated right-sided pressures, pulmonary hypertension, CHF, and persistent hypotension as an etiology behind worsening renal function -Was given 80 mg of Lasix overnight, urine output lackluster at 120 cc -Was also placed on midodrine 10 3 times daily, patient is a bit more normotensive Plan: -We will moved patient down to CSU -Take her off metoprolol, increase Cardizem to 60 every 6 -Continue midodrine 10 mg 3 times daily -We will give another 80 mg of Lasix -We will place her on a dopamine drip -She might require ultrafiltration, will see how she does over the weekend -Monitor very closely for fluid overload, worsening CHF Status: Acute (9) Shingles outbreak: -Right shoulder, right back -Continue isolation precautions -Renally dosed acyclovir to 1 g every 24, hold for now as crcl is 15 Status: Acute (10) Mass of left cardiac ventricle: -patient echo shows a LV mass -Cardiac echo with contrast shows: Left-ventricular ejection fraction to moderately reduced 45%. There is a global hypokinesis. There is thickening of subvalvular apparatus of the mitral valve which is less likely to be vegetation and mostly it is due to calcification. Clinical correlation advised. When compared to the prior echocardiogram there is no significant change. Status: Acute (11) Low blood pressure: -blood pressure are soft, patient feels fine, tells me her blood pressure are always low -will check la, procal, crp all within normal limits -Likely secondary to elevated right-sided pressures, pulmonary hypertension Status: Acute (12) UTI (urinary tract infection): Will start patient on Rocephin, follow urine cultures, follow blood cultures Status: Acute (13) Left renal mass: CT scan of the abdomen pelvis shows a nonsimple left renal mass, will need an outpatient follow-up Status: Acute Additional A&P Information Chronic anemia: Stable Goals of care: Discussed with the patient: Full code Cardiac diet DVT prophylaxis not indicated because of Eliquis Attestations Medical Necessity Statement*: Patient requires hospitalization for acute renal failure, pulmonary hypertension, CHF, low blood pressures, UTI Coding Level of Care Code 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
[2021-01-08] MEDS: DOPamine drip 400 MG/250 ML PREMIX 12.7 MG IV (17:11)
--- NOTE | 2021-01-08 17:27 | PC.NURSE ---
pt received from 2sout into room 107 at 1350.report received.pt is alert and oriented x 4.afib at controlled rate on monitor 50-60's).bp 101/68.oriented to room environment.instructed to notify staff for any pain,sob..or for any concerns at all.pt verb understanding of instructions.
--- NOTE | 2021-01-08 17:30 | PC.NURSE ---
pt started on dopamine drip at 5 mcg/kg/min per order dr tavares..for decreased urine output and bp.
[2021-01-08 19:16] LABS: Anion Gap 18.6 (5-19); Blood Urea Nitrogen 73 mg/dL (8-23); Calcium 8.2 mg/dL (8.5-10.5); Carbon Dioxide 20 mmol/L (22-29); Chloride 96 mmol/L (98-107); Glucose 146 mg/dL (65-115); Osmolality Calculated 294 mOsm/kg (285-295); Potassium 4.6 mmol/L (3.5-5.1); Sodium 130 mmol/L (136-145)
--- NOTE | 2021-01-08 22:49 | CTR_ITS ---
PROCEDURE INFORMATION: Exam: CT Chest Without Contrast; Diagnostic Exam date and time: 01/08/2021 11:11 PM Age: 85 years old Clinical indication: Patient HX: Earlier episode of hemoptysis TECHNIQUE: Imaging protocol: Diagnostic computed tomography of the chest without contrast. Radiation optimization: All CT scans at this facility use at least one of these dose optimization techniques: automated exposure control; mA and/or kV adjustment per patient size (includes targeted exams where dose is matched to clinical indication); or iterative reconstruction. COMPARISON: CR XR chest 1V portable [id number] 01/05/2021 11:11 PM RADIATION DOSE METRICS: Total DLP (mGy-cm): 536.28 FINDINGS: Thyroid: Enlargement of the left lobe of the thyroid with substernal extension noted. The left lobe has a heterogeneous appearance. There are coarse calcifications noted. No dominant nodules are seen. This may represent asymmetric thyroid goiter. Lungs: Punctate calcified granulomas in the right lung. Prominence of the pulmonary interstitium, which may represent mild interstitial edema versus chronic fibrosis. Compressive atelectasis versus consolidation in the left lower lobe. No additional airspace disease noted. Pleural spaces: Small bilateral pleural effusions. Heart: Mild cardiomegaly is noted. Small pericardial effusion is present. Aorta: Atherosclerosis of the thoracic aorta. No aortic aneurysm. Lymph nodes: Calcified mediastinal and right hilar lymph nodes, consistent with old granulomatous disease. Stomach and bowel: Large hiatal hernia containing a portion of the stomach. Bones/joints: Advanced degenerative spine changes. No acute fracture. Soft tissues: Unremarkable. CT/CT chest wo con [id number] IMPRESSION: 1. Mild cardiomegaly is noted. Small pericardial effusion is present. 2. Large hiatal hernia containing a portion of the stomach. 3. Prominence of the pulmonary interstitium, which may represent mild interstitial edema versus chronic fibrosis. 4. Compressive atelectasis versus consolidation in the left lower lobe. No additional airspace disease noted. No suspicious pulmonary mass. 5. Small bilateral pleural effusions. 6. Enlargement of the left lobe of the thyroid, likely representing goiter. 7. Findings of old granulomatous disease are identified. Radiation Dose CTDIVOL = (mGy): DLP = 536.28 (mGy-cm)
[2021-01-08] MEDS: ondansetron 2 mg/ML SDV 2 mL 4 MG IVP (23:19)
[2021-01-09] VITALS (7 sets, daily range): BP systolic 102–131; BP diastolic 56–84; PULSE 74–106; RESP 13–21; TEMP 36–36.8; O2SAT 90–98
--- NOTE | 2021-01-09 00:07 | PC.NURSE ---
Patient c/o nausea, had two episodes of bloody emesis/hemoptysis. Dr. Eduardo notified, orders received see NOV. Will continue to monitor.
[2021-01-09 05:12] LABS: Basophils % 0.1 %; Hematocrit 33.9 % (37.0-47.0); Hemoglobin 9.8 g/dL (11.5-15.3); Lymphocytes # 0.5 10^3/uL (0.8-4.8); Lymphocytes % 2.8 %; Mean Corpuscular HGB Conc 28.9 g/dL (30.0-36.0); Mean Corpuscular Hemoglobin 24.7 pg (28.0-34.0); Mean Corpuscular Volume 85.6 fL (81-99); Mean Platelet Volume 10.3 fL (7.4-10.4); Monocytes # 1.8 10^3/uL (0.2-0.9); Monocytes % 10.6 %; Neutrophils # 14.87 10^3/uL (1.8-7.7); Neutrophils % 85.9 %; Nucleated Red Blood Cells % 0 %; Platelet Count 270 10^3/cmm (130-400); Red Blood Count 3.96 10^6/uL (4.1-5.3); Red Cell Distribution Width 23.2 % (12.1-15.1); White Blood Count 17.3 10^3/uL (4.0-10.0)
--- NOTE | 2021-01-09 05:31 | PC.NURSE ---
Darlenem held per patient condition, see NOV. Dr. Eduardo notified. Will continue to monitor.
[2021-01-09 05:38] LABS: Lactate (Lactic Acid level) 0.9 mmol/L (0.5-2.2)
[2021-01-09 05:43] LABS: Alanine Aminotransferase 9 U/L (0-33); Albumin Level 3.2 g/dL (3.5-5.2); Alkaline Phosphatase 80 IU/L (35-105); Anion Gap 17.8 (5-19); Aspartate Amino Transferase 15 U/L (0-32); Blood Urea Nitrogen 80 mg/dL (8-23); Carbon Dioxide 22 mmol/L (22-29); Chloride 99 mmol/L (98-107); Globulin 3.2 g/dL (1.3-4.6); Glucose 127 mg/dL (65-115); NT Pro B Type Natriuretic Pept 8071 pg/mL (0-450); Osmolality Calculated 304 mOsm/kg (285-295); Phosphorus 6.3 mg/dL (2.5-4.5); Potassium 4.8 mmol/L (3.5-5.1); Sodium 134 mmol/L (136-145); Total Bilirubin 0.9 mg/dL (0.15-1.2); Total Protein 6.4 g/dL (6.6-8.7)
--- NOTE | 2021-01-09 08:00 | PC.NURSE ---
Pt presents lying in bed resting with eyes closed. Resp even and non-labored no distress noted. Pt had no c/o pain or discomfort at the present time. Dopamine drip at 3mcg/min. IV patent no redness or swelling noted. Call light in reach. No needs voiced. Will cont to monitor.
--- NOTE | 2021-01-09 08:23 | PM.PN ---
Subjective Subjective: Interval history: swollen, using nc 02.poor appetite, and sleepy. wants to try and avoid dialysis. Medications: Reviewed: Yes Medication Review Details: Current Medications Acetaminophen (Acetaminophen 325 Mg Tablet) 325 mg PO QID PRN PRN Reason: FEVER Acyclovir (Acyclovir 400 Mg Tablet) 1,000 mg PO Q24H [facility] Last Admin: 01/06/21 14:03 Dose: 1,000 mg Documented by: Apixaban (Apixaban 5 Mg Tablet) 2.5 mg PO BID [facility] Last Admin: 01/08/21 17:16 Dose: 2.5 mg Documented by: Aspirin (Aspirin 81 Mg Ec Tablet) 81 mg PO DAILY [facility] Last Admin: 01/08/21 08:22 Dose: 81 mg Documented by: Atorvastatin Calcium (Atorvastatin 40 Mg Tablet) 40 mg PO Q24H [facility] Last Admin: 01/08/21 13:28 Dose: 40 mg Documented by: Bumetanide (Bumetanide 0.25 Mg/Ml Sdv 4 Ml) 1 mg IV Q12H [facility] Diltiazem HCl (Diltiazem 30 Mg Tablet) 60 mg PO Q6H [facility] Last Admin: 01/09/21 05:31 Dose: Not Given Documented by: Ceftriaxone Sodium 1,000 mg/ (Sodium Chloride) 50 mls @ 100 mls/hr IV Q24H [facility]; Protocol Last Admin: 01/08/21 10:08 Dose: 100 mls/hr Documented by: Dopamine HCl/Dextrose (Intropin Drip) 400 mg in 250 mls @ 12.672 mls/hr IV CONT [facility]; Protocol Last Admin: 01/08/21 17:11 Dose: 5 mcg/kg/min, 12.7 mls/hr Documented by: Metolazone (Metolazone 5 Mg Tablet) 10 mg PO DAILY [facility] Midodrine (Midodrine 5 Mg Tablet) 10 mg PO TID [facility] Last Admin: 01/09/21 00:06 Dose: Not Given Documented by: Morphine Sulfate (Morphine Ir 15 Mg Tablet) 15 mg PO Q8H PRN PRN Reason: foot pain Ondansetron HCl (Ondansetron 2 Mg/Ml Sdv 2 Ml) 4 mg IVP Q6H PRN PRN Reason: NAUSEA AND VOMITING Last Admin: 01/08/21 23:19 Dose: 4 mg Documented by: Pantoprazole Sodium (Pantoprazole Dr 40 Mg Tablet) 40 mg PO DAILY [facility] Last Admin: 01/08/21 08:23 Dose: 40 mg Documented by: Prednisone (Prednisone 20 Mg Tablet) 60 mg PO DAILY [facility] Last Admin: 01/08/21 08:23 Dose: 60 mg Documented by: Senna/Docusate Sodium (Sennosides-Docusate Tablet) 1 tab PO DAILY [facility] Last Admin: 01/08/21 08:22 Dose: 1 tab Documented by: Vitals/I&O/Wt Last Vital Signs Temp 97.4 F L 01/09/21 03:18 Pulse 85 01/09/21 03:18 Resp 15 01/09/21 03:18 BP 121/59 01/09/21 03:18 Pulse Ox 90 01/09/21 03:18 01/08/21 01/09/21 01/09/21 22:59 06:59 14:59 Intake Total 240 / 480 Output Total 350 / 500 Balance 240 / 330 -350 / -20 Physical Exam Narrative: EXAM NARRATIVE: obese lady lying in bed at 45 degree angle vs noted and stable- hypoxic w/ nc 02 heent- nc/at, eomi neck- obese lungs crackles b/l heart-irreg irreg, +ELIZABETH abd soft, ascites, +BS ext b/l edema neuro- a,a, o x 2+, no asterixis + rash Urinary Catheter Management^: Escobar: Cath Placed During This Visit: yes Reason for Continuing Indwelling Catheter: Acute Urinary Retention or Obstruction Urinary Catheter Date of Insertion: 01/07/21 Urinary Catheter Time of Insertion: 09:46 Data : 01/09/21 04:47 01/09/21 04:47 Micro: Microbiology 01/07/21 16:25 Urine Culture - Final Urine Catheterized 01/07/21 15:03 Blood Culture - Preliminary Blood NEGATIVE TO DATE 01/07/21 14:59 Blood Culture - Preliminary Blood NEGATIVE TO DATE A&P Additional A&P Information 1. Acute renal failure felt due to DM, Rt heart failure and CRS -will attempt bumex drip in addition to metolazone and dopamine. if fails, would dialyze if pt consents- she said she only agrees to HD- if it is last approach possible - phos 6.3- binders 1b. CKD stage 4- b/l cr approx 1.9 from age, CRS -await PTH Renal imaging noted, large indeterminate cyst seen in the left kidney; I agree without patient follow up 2. A. fib with RVR and hemodynamics Currently controlled -keep k > 4, mag> 2- even on diuretics 3. gout- on prednisone- can raise bun 4. 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 echo EF 45% There is thickening of subvalvular apparatus of the mitral valve which is less likely to be vegetation and mostly it is due to calcification. 5. UTI- renal dose abx. leukocytosis worsened 6. anemia - was iron def in Jul 2020- repeat labs pending 7. hyponatremia from SHAQUILLE and cHF -improving -TSH pending 8. 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
[2021-01-09 09:42] LABS: Free T4 Free Thyroxine 1.27 ng/dL (0.82-1.77)
[2021-01-09 09:51] LABS: Thyroid Stimulating Hormone 0.42 uIU/mL (0.27-4.20)
[2021-01-09 10:02] LABS: T3 Free 1.8 PG/ML (2.0-4.4)
[2021-01-09] MEDS: dilTIAZem 30 mg Tablet 60 MG PO ×3 (10:21→20:47)
[2021-01-09] MEDS: midodrine 5 mg TABLET 10 MG PO ×3 (10:21→20:39)
[2021-01-09] MEDS: sennosides-docusate Tablet 1 TAB PO (10:21)
[2021-01-09] MEDS: sevelamer 800 mg Tablet 1600 MG PO ×3 (10:22→20:38)
[2021-01-09] MEDS: metOLazone 5 MG Tablet 10 MG PO (10:23)
[2021-01-09] MEDS: predniSONE 20 mg Tablet 60 MG PO (10:23)
[2021-01-09] MEDS: pantoprazole DR 40 mg Tablet PO (10:23)
[2021-01-09] MEDS: cefTRIAXone 1,000 MG in sodium chloride 0.9% (plus) 50 ML 100 MG IV (10:24)
[2021-01-09] MEDS: FUROsemide 100 MG in sodium chloride 0.9% 40 ML IV ×2 (10:24→17:56)
[2021-01-09 10:53] LABS: Ferritin 26 ng/mL (15-150); Iron 22 ug/dL (37-145); Percent Saturation 6.7 % (20-50); Total Iron Binding Capacity 328 mcg/dl; Unsaturated Iron Binding 306 ug/dL (112-347)
--- NOTE | 2021-01-09 11:38 | P.PN_ITS ---
Subjective Subjective: Interval history: Overnight patient had an episode of hemoptysis, resolved thereafter, had a CT of the chest was unremarkable, currently doing well, has no complaints of shortness of breath, no recurrent episodes of hemoptysis, her anticoagulation has been put on hold, she is on 2 L, she is worried about her kidney, worried about her heart, worried about the fluid overload, I went over it in detail about what is going on, she voiced understanding, all questions answered, she did have intermittent episodes of confusion during my examination, she did state that there is Grasshopper's on the parker, but after redirection she rescinded her statement, she follows all commands, alert oriented to person place and time, knows fairly extensive detail about her past medical history, the various physicians as she is seen Vitals/I&O/Wt Last Vital Signs Temp 96.8 F L 01/09/21 08:00 Pulse 106 H 01/09/21 08:00 Resp 20 H 01/09/21 08:00 BP 108/56 01/09/21 08:00 Pulse Ox 92 01/09/21 08:00 01/08/21 01/09/21 01/09/21 22:59 06:59 14:59 Intake Total 240 / 530 Output Total 350 / 500 Balance 240 / 380 -350 / 30 Physical Exam Const: COMMON NORMALS: no acute distress and patient oriented x3 HENMT: COMMON NORMALS: normocephalic HEAD & SCALP: normocephalic Neck/C-Spine: COMMON NORMALS: no JVD Resp: COMMON NORMALS: normal respiratory effort, No retractions, No use of accessory muscles and clear to auscultation bilaterally AUSCULTATION: clear to auscultation bilaterally Cardio: COMMON NORMALS: no JVD, regular rate, regular rhythm, S1 normal heart sound present and S2 normal heart sound present RATE: regular rate RHYTHM: regular rhythm HEART SOUNDS: S1 normal heart sound present and S2 normal heart sound present GI: COMMON NORMALS: Normal to inspection, nondistended, normoactive bowel sounds present, Soft to palpation, non-tender, No hepatosplenomegaly present, no masses and no bruits PALPATION: Yes Soft to palpation and Yes No hepatosp lenomegaly present Extremity: COMMON NORMALS: no calf tenderness NARRATIVE EXTREMITY EXAM: 2+ pedal edema Neuro: COMMON NORMALS: patient oriented x3 Psych: COMMON NORMALS: mental status grossly normal Skin: NARRATIVE SKIN EXAM: Does have a rash, in a dermatomal fashion over the right shoulder, has lesions are crusted over Urinary Catheter Management^: Escobar: Cath Placed During This Visit: yes Reason for Continuing Indwelling Catheter: Acute Urinary Retention or Obstruction Urinary Catheter Date of Insertion: 01/07/21 Urinary Catheter Time of Insertion: 09:46 Data : 01/09/21 04:47 01/09/21 04:47 Micro: Microbiology 01/07/21 16:25 Urine Culture - Final Urine Catheterized 01/07/21 15:03 Blood Culture - Preliminary Blood NEGATIVE TO DATE 01/07/21 14:59 Blood Culture - Preliminary Blood NEGATIVE TO DATE A&P Assessment and plan (1) Acute gout: -NSAIDs are contraindicated given SHAQUILLE -I would avoid colchicine given her anemia, and her current shingles outbreak -Continue prednisone 60 mg daily Status: Acute (2) Atrial fibrillation with RVR: -Intermittent A. fib with RVR, currently A. fib heart rates in the 50-90's -Given low blood pressures, will stop metoprolol -Increase Cardizem to 60 every 6 hours -Continue telemetry monitoring -We will have PT OT work with patient, see what her heart rates do -Continue Eliquis 2.5 twice daily, aspirin on hold given hemoptysis, can resume in 24 hours Status: Acute (3) Pruritic rash: -Seems like a shingles outbreak, continue isolation Status: Acute (4) Chest pain: -Reports chest pain -No active chest pain Plan: -Continue 6 hour troponin 31, delta of 4, ekg no acute st-t wave changes -Aspirin on hold, statin -Had a negative coronary angiogram in 2019 -Monitor for chest pain -Cardiac echo: -shows improved EF of 45%, MOD pulmonary HTN Status: Acute (5) Acute exacerbation of CHF (congestive heart failure): -Discussed with Dr. Lomax, patient's ejection fraction on echocardiogram with contrast shows an EF of 45%, global hypokinesis, no change from prior echocardiogram a year ago -Has minimal crackles on exam, some pulmonary vascular congestion, bilateral pitting edema, does have third spacing of fluids on imaging -We will place on fluid restrictions -Urine output has picked up to some degree with interventions as below, continue dopamine fixed drip at 3, midodrine 10 mg 3 times daily, will start her on a Lasix drip -Monitor respiratory status closely Status: Acute Qualifiers: Heart failure type: combined systolic and diastolic Qualified Code(s): 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 Wood back in March 2019 which showed moderate pulmonary hypertension, which was not reversible, mixed -She was referred to the pulmonary hypertension clinic at [facility] -She tells me that she had extensive testing, but they told her that they could do nothing new for her, she was supposed to follow-up about a year back however she has not Status: Acute (8) Acute kidney injury superimposed on chronic kidney disease: -Creatinine 3.1, baseline is 1.9-2, did not respond to fluid therapy -Concerns for elevated right-sided pressures, pulmonary hypertension, CHF, and persistent hypotension as an etiology behind worsening renal function -Was given 80 mg of Lasix overnight, had an improved response with 500 cc of urine output along with midodrine and dopamine -She has been much more normotensive for the last 24 hours Plan: -Currently in CSU -Continue midodrine 10 mg 3 times daily -Started on a Lasix drip -Dopamine drip at a fixed rate of 3 -She might require ultrafiltration, will see how she does by Sunday -Monitor very closely for fluid overload, worsening CHF Status: Acute (9) Shingles outbreak: -Right shoulder, right back -Continue isolation precautions -Renally dosed acyclovir to 1 g every 24, hold for now as crcl is 15 Status: Acute (10) Mass of left cardiac ventricle: -patient echo shows a LV mass -Cardiac echo with contrast shows: Left-ventricular ejection fraction to moderately reduced 45%. There is a global hypokinesis. There is thickening of subvalvular apparatus of the mitral valve which is less likely to be vegetation and mostly it is due to calcification. Clinical correlation advised. When compared to the prior echocardiogram there is no significant change. -Remains afebrile -She does have developing leukocytosis, but no significant inflammatory marker elevation -Blood cultures remain unremarkable -We will repeat blood cultures Status: Acute (11) Low blood pressure: -blood pressure are soft, patient feels fine, tells me her blood pressure are always low -will check la, procal, crp all within normal limits -Likely secondary to elevated right-sided pressures, pulmonary hypertension Status: Acute (12) UTI (urinary tract infection): Switch antibiotic coverage to Primaxin, follow urine cultures, follow blood cultures Status: Acute (13) Left renal mass: CT scan of the abdomen pelvis shows a nonsimple left renal mass, will need an outpatient follow-up Status: Acute (14) Hemoptysis: -Likely secondary to coughing spells, -Try Tessalon Perles -Hold aspirin, hold Eliquis Status: Acute (15) Aspiration pneumonia: -Likely elevated leukocytosis with increased oxygen requirements of 2 L related to aspiration event overnight related to hemoptysis -CT of the chest does show some consolidation -For now I have broaden antibiotic coverage to Primaxin Status: Acute Additional A&P Information Chronic anemia: Stable Goals of care: Discussed with the patient: Full code Cardiac diet DVT prophylaxis scd, Eliquis on hold Attestations Medical Necessity Statement*: Patient requires hospitalization, for acute renal failure, CHF, fluid overload, A. 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
--- NOTE | 2021-01-09 12:56 | PC.OT ---
OT attempted twice throughout morning, patient refusing both times stating I'm not doing it today.
[2021-01-09 13:19] LABS: Procalcitonin 0.28 ng/mL (0-0.5)
[2021-01-09 13:30] LABS: C Reactive Protein 9.2 mg/L (0.0-4.9)
[2021-01-09] MEDS: atorvastatin 40 mg Tablet PO (14:41)
--- NOTE | 2021-01-09 16:12 | DCPLANNER ---
Pg 2 of IM updated and reviewed with pt. She appreciates it, no questions, copy provided.
[2021-01-09 17:33] LABS: Magnesium 2.1 mg/dL (1.7-2.3)
[2021-01-09 17:34] LABS: Alanine Aminotransferase 11 U/L (0-33); Albumin Level 2.9 g/dL (3.5-5.2); Alkaline Phosphatase 71 IU/L (35-105); Calcium 7.8 mg/dL (8.5-10.5); Carbon Dioxide 17 mmol/L (22-29); Chloride 99 mmol/L (98-107); Globulin 3.1 g/dL (1.3-4.6); Glucose 126 mg/dL (65-115); Osmolality Calculated 298 mOsm/kg (285-295); Sodium 130 mmol/L (136-145); Total Bilirubin 0.9 mg/dL (0.15-1.2)
[2021-01-09 17:48] LABS: Anion Gap 19.1 (5-19)
[2021-01-09 17:49] LABS: Aspartate Amino Transferase 27 U/L (0-32); Blood Urea Nitrogen 87 mg/dL (8-23); Potassium 5.1 mmol/L (3.5-5.1)
[2021-01-10] VITALS (7 sets, daily range): BP systolic 94–133; BP diastolic 52–73; PULSE 75–83; RESP 12–20; TEMP 36.4–36.7; O2SAT 92–99
[2021-01-10] MEDS: DOPamine drip 400 MG/250 ML PREMIX 7.6 MG IV (02:01)
[2021-01-10] MEDS: FUROsemide 100 MG in sodium chloride 0.9% 40 ML IV ×2 (02:38→12:38)
--- NOTE | 2021-01-10 03:47 | PC.NURSE ---
2770 Left arm edematous and tender, skin tear oozing. Cleansed and arm elevated. IV infusing in Right AC. Manual B/P obtained, patient states that it hurts less that. Will continue manual b/p check
[2021-01-10] MEDS: dilTIAZem 30 mg Tablet 60 MG PO ×4 (05:55→22:14)
[2021-01-10 06:07] LABS: Basophils % 0.1 %; Hematocrit 33.7 % (37.0-47.0); Hemoglobin 9.7 g/dL (11.5-15.3); Lymphocytes # 0.3 10^3/uL (0.8-4.8); Mean Corpuscular HGB Conc 28.8 g/dL (30.0-36.0); Mean Corpuscular Hemoglobin 24.9 pg (28.0-34.0); Mean Corpuscular Volume 86.6 fL (81-99); Mean Platelet Volume 10.3 fL (7.4-10.4); Monocytes # 1.4 10^3/uL (0.2-0.9); Monocytes % 9.1 %; Neutrophils # 13.91 10^3/uL (1.8-7.7); Nucleated Red Blood Cells % 0 %; Platelet Count 239 10^3/cmm (130-400); Red Blood Count 3.89 10^6/uL (4.1-5.3); Red Cell Distribution Width 23.2 % (12.1-15.1); White Blood Count 15.8 10^3/uL (4.0-10.0)
[2021-01-10 06:25] LABS: INR 1.95 (0.8-1.2)
[2021-01-10 06:36] LABS: NT Pro B Type Natriuretic Pept 9629 pg/mL (0-450); Procalcitonin 0.22 ng/mL (0-0.5)
--- NOTE | 2021-01-10 06:37 | PC.NURSE ---
0600 CBB/CLC done. Patient tolerated well. Pleasant and i good spirits. States she is tired of the hospital and the machines and being poked all the time. She wishes she could just tell them to stop doing all this stuff Discussed patients right to refuse and pros and cons of continuing treatment. Patient states she would like for us to do all we can, until she can no longer take it.
[2021-01-10 06:49] LABS: Alanine Aminotransferase 11 U/L (0-33); Albumin Level 3.3 g/dL (3.5-5.2); Alkaline Phosphatase 71 IU/L (35-105); Anion Gap 19.5 (5-19); Aspartate Amino Transferase 14 U/L (0-32); C Reactive Protein 6.2 mg/L (0.0-4.9); Calcium 8.1 mg/dL (8.5-10.5); Carbon Dioxide 22 mmol/L (22-29); Chloride 100 mmol/L (98-107); Globulin 3.1 g/dL (1.3-4.6); Glucose 120 mg/dL (65-115); Magnesium 2.2 mg/dL (1.7-2.3); Osmolality Calculated 311 mOsm/kg (285-295); Potassium 4.5 mmol/L (3.5-5.1); Sodium 137 mmol/L (136-145); Total Bilirubin 0.9 mg/dL (0.15-1.2); Total Protein 6.4 g/dL (6.6-8.7)
[2021-01-10 06:53] LABS: Calcium 8.2 mg/dL (8.5-10.5); Parathyroid Hormone 116.9 pg/mL (15-65)
--- NOTE | 2021-01-10 07:00 | XR_ITS ---
WS: [id number] PORTABLE CHEST HISTORY: sob COMPARISON: 01/05/2021 Small persistent LEFT pleural effusion with LEFT basilar atelectasis. Consolidation and atelectasis w as noted on a recent CT along with a small effusion at the LEFT base. No pneumothorax per Cardiac size: Mildly enlarged cardiac silhouette. Mediastinum/Aorta: Mild atherosclerosis aorta. No osseous abnormality seen. XR/XR chest 1V portable [id number] IMPRESSION: 1. Persistent consolidation at the LEFT lung base. Combination of small effusi on with atelectasis or pneumonia. Similar to the prior study with no improvemen t. 2. Mild cardiomegaly and calcified thoracic aorta.
[2021-01-10 07:02] LABS: Blood Urea Nitrogen 86 mg/dL (8-23)
--- NOTE | 2021-01-10 07:28 | P.PN_ITS ---
Subjective Subjective: Interval history: still swollen and sob. however, inc uop and dec edema. poor appetite. Medications: Reviewed: Yes Medication Review Details: Current Medications Acetaminophen (Acetaminophen 325 Mg Tablet) 325 mg PO QID PRN PRN Reason: FEVER Acyclovir (Acyclovir 400 Mg Tablet) 1,000 mg PO Q24H [facility] Last Admin: 01/06/21 14:03 Dose: 1,000 mg Documented by: Apixaban (Apixaban 5 Mg Tablet) 2.5 mg PO BID [facility] Last Admin: 01/08/21 17:16 Dose: 2.5 mg Documented by: Aspirin (Aspirin 81 Mg Ec Tablet) 81 mg PO DAILY RITA Last Admin: 01/08/21 08:22 Dose: 81 mg Documented by: Atorvastatin Calcium (Atorvastatin 40 Mg Tablet) 40 mg PO Q24H RITA Last Admin: 01/09/21 14:41 Dose: 40 mg Documented by: Diltiazem HCl (Diltiazem 30 Mg Tablet) 60 mg PO Q6H RITA Last Admin: 01/10/21 05:55 Dose: 60 mg Documented by: Dopamine HCl/Dextrose (Intropin Drip) 400 mg in 250 mls @ 12.672 mls/hr IV CONT RITA; Protocol Last Admin: 01/10/21 02:01 Dose: 3 mcg/kg/min, 7.6 mls/hr Documented by: Furosemide 100 mg/ Sodium (Chloride) 50 mls @ 5 mls/hr IV .Q10H RITA Last Admin: 01/10/21 02:38 Dose: 10 mg/hr, 5 mls/hr Documented by: Imipenem/Cilastatin Sodium 250 (mg/ Sodium Chloride) 100 mls @ 200 mls/hr IV Q12H RITA; Protocol Last Infusion: 01/10/21 00:15 Dose: Infused Documented by: Metolazone (Metolazone 5 Mg Tablet) 10 mg PO DAILY RITA Last Admin: 01/09/21 10:23 Dose: 10 mg Documented by: Midodrine (Midodrine 5 Mg Tablet) 10 mg PO TID [facility] Last Admin: 01/09/21 20:39 Dose: 10 mg Documented by: Morphine Sulfate (Morphine Ir 15 Mg Tablet) 15 mg PO Q8H PRN PRN Reason: foot pain Ondansetron HCl (Ondansetron 2 Mg/Ml Sdv 2 Ml) 4 mg IVP Q6H PRN PRN Reason: NAUSEA AND VOMITING Last Admin: 01/08/21 23:19 Dose: 4 mg Documented by: Pantoprazole Sodium (Pantoprazole Dr 40 Mg Tablet) 40 mg PO DAILY [facility] Last Admin: 01/09/21 10:23 Dose: 40 mg Documented by: Prednisone (Prednisone 20 Mg Tablet) 60 mg PO DAILY [facility] Last Admin: 01/09/21 10:23 Dose: 60 mg Documented by: Senna/Docusate Sodium (Sennosides-Docusate Tablet) 1 tab PO DAILY [facility] Last Admin: 01/09/21 10:21 Dose: 1 tab Documented by: Sevelamer Carbonate (Sevelamer 800 Mg Tablet) 1,600 mg PO TID [facility] Last Admin: 01/09/21 20:38 Dose: 1,600 mg Documented by: Vitals/I&O/Wt Last Vital Signs Temp 97.5 F L 01/10/21 07:22 Pulse 80 01/10/21 07:22 Resp 18 01/10/21 07:22 BP 133/73 01/10/21 07:22 Pulse Ox 94 01/10/21 07:22 01/09/21 01/10/21 01/10/21 22:59 06:59 14:59 Intake Total 87.667 / 457.667 383.5 / 841.167 Output Total 1100 / 1100 975 / 2075 Balance -1012.333 / -642.333 -591.5 / -1233.833 Physical Exam Narrative: EXAM NARRATIVE: obese lady lying in bed more comfortably on nc 02 4L vs noted and stable heent- nc/at, eomi neck- obese lungs crackles b/l heart-irreg irreg, +ELIZABETH abd soft, ascites, +BS ext b/l edema 2+ and improving neuro- a,a, o x 2+, no asterixis + rash Urinary Catheter Management^: Escobar: Cath Placed During This Visit: yes Reason for Continuing Indwelling Catheter: Acute Urinary Retention or Obstruction Urinary Catheter Date of Insertion: 01/07/21 Urinary Catheter Time of Insertion: 09:46 Data : 01/10/21 04:51 01/10/21 04:51 Micro: Microbiology 01/09/21 16:35 Blood Culture - Preliminary Blood SPECIMEN COLLECTED 04/09/21 16:25 Urine Culture - Final Urine Catheterized A&P Additional A&P Information 1. Acute renal failure felt due to DM, Rt heart failure and CRS -Good uop w/ lasix drip, metolazone, and dopamine. -she said she only agrees to HD- if it is last approach possible - phos 6.3 to 6, cont binders -met acidosis improving 1b. CKD stage 4- b/l cr approx 1.9 from age, CRS - PTH 117- repeat in 4 weeks Renal imaging noted, large indeterminate cyst seen in the left kidney; I agree without patient follow up 2. A. fib with RVR and hemodynamics Currently controlled -keep k > 4, mag> 2- even on diuretics 3. gout- on prednisone- can raise bun 4. 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 echo EF 45% There is thickening of subvalvular apparatus of the mitral valve which is less likely to be vegetation and mostly it is due to calcification. 5. UTI- renal dose abx. leukocytosis worsened 6. anemia -irn sat 6.7%, ferritin 26- iv iron 7. hyponatremia from SHAQUILLE and cHF -improving -TSH pending -na improved w/ diuresis 8. 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
[2021-01-10] MEDS: pantoprazole DR 40 mg Tablet PO (08:41)
[2021-01-10] MEDS: midodrine 5 mg TABLET 10 MG PO ×3 (08:41→22:15)
[2021-01-10] MEDS: predniSONE 20 mg Tablet 60 MG PO (08:41)
[2021-01-10] MEDS: sevelamer 800 mg Tablet 1600 MG PO ×3 (08:41→22:14)
[2021-01-10] MEDS: sennosides-docusate Tablet 1 TAB PO (08:42)
[2021-01-10] MEDS: metOLazone 5 MG Tablet PO (08:42)
[2021-01-10] MEDS: atorvastatin 40 mg Tablet PO (12:35)
[2021-01-10 12:45] LABS: Lactate (Lactic Acid level) 0.9 mmol/L (0.5-2.2)
--- NOTE | 2021-01-10 20:40 | PM.PN ---
Subjective Subjective: Interval history: Having urine output with current management including Lasix drip, dopamine at renal dosing and metolazone. Edema not as bad. Still does not feel well but no new complaints. Shingles continues to hurt Vitals/I&O/Wt Last Vital Signs Temp 98 F 01/10/21 19:59 Pulse 83 01/10/21 19:59 Resp 15 01/10/21 19:59 BP 120/60 01/10/21 15:21 Pulse Ox 92 01/10/21 19:59 01/10/21 01/10/21 01/10/21 06:59 14:59 22:59 Intake Total 383.5 / 841.167 150 / 150 Output Total 975 / 2075 600 / 600 700 / 1300 Balance -591.5 / -1233.833 -450 / -450 -700 / -1150 Physical Exam Narrative: EXAM NARRATIVE: Patient is awake and alert, very pleasant but chronically ill-appearing Face is puffy, frequent cough productive of clearish sputum, no blood noted Neck is large but supple Lungs with wheezes and upper airway noise bilaterally, no accessory muscle use while at rest Distant heart sounds Abdomen is soft Pitting edema noted to lower extremities Great toe on the left foot is tender to touch but not warm, some erythema Shingles is on her back and not currently evaluated Escobar catheter is noted Speech is clear, x3, moves all extremities though generally weak Urinary Catheter Management^: Escobar: Cath Placed During This Visit: yes Reason for Continuing Indwelling Catheter: Accurate Measurement of Urinary Output in Critically Ill Patients Urinary Catheter Date of Insertion: 01/07/21 Urinary Catheter Time of Insertion: 09:46 Data : 01/10/21 04:51 01/10/21 04:51 Micro: Microbiology 01/09/21 16:35 Blood Culture - Preliminary Blood NEGATIVE TO DATE 01/10/21 08:48 Blood Culture - Preliminary Blood SPECIMEN COLLECTED A&P Assessment and plan (1) CHF (congestive heart failure): Status: Chronic Qualifiers: Heart failure type: combined systolic and diastolic Heart failure chronicity: acute on chronic Qualified Code(s): I50.43 - Acute on chronic combined systolic (congestive) and diastolic (congestive) heart failure (2) Pulmonary hypertension: Status: Chronic (3) Aortic stenosis: Status: Chronic Qualifiers: Cardiac valve disease etiology: nonrheumatic Qualified Code(s): I35.0 - Nonrheumatic aortic (valve) stenosis (4) Acute kidney injury superimposed on chronic kidney disease: Acute renal failure Status: Acute (5) Shingles outbreak: Status: Acute Qualifiers: Herpes zoster complications: without complications Qualified Code(s): B02.9 - Zoster without complications (6) Mass of left cardiac ventricle: Status: Acute (7) Low blood pressure: Status: Acute Qualifiers: Hypotension type: hypotension due to drug Qualified Code(s): I95.2 - Hypotension due to drugs (8) UTI (urinary tract infection): Urine culture no growth final Status: Acute (9) Left renal mass: Status: Acute (10) Aspiration pneumonia: Status: Acute (11) Hemoptysis: Status: Acute (12) Acute gout: Status: Acute (13) Atrial fibrillation with RVR: Status: Acute (14) Anemia: Status: Chronic Additional A&P Information On this hospital stay is had venous duplex of the lower extremities, x-rays of the feet and ankles, echocardiogram, renal ultrasound, CT of the abdomen and pelvis, CT of the chest, multiple laboratory studies, blood cultures, UA urine culture Continue current Lasix drip Continue fluid restriction and close monitoring of urine output Continue dopamine at fixed renal dosing Is also on midodrine scheduled 3 times a day Probably reaching a point we need to decrease metolazone dosing with increasing azotemia Decrease prednisone which she is on for gout Stop Primaxin given unremarkable urine culture Resume aspirin Continue to hold Eliquis currently given that it has already been held and renal function has not significantly improved Subcu heparin for DVT prophylaxis For recurrent hemoptysis Hemoglobin is presently stable Follow-up pending free T4 Follow-up pending urine protein electrophoresis On PPI On pain medications Will need outpatient follow up for renal mass Appreciate nephrology input and assistance in care Change daily labs to include chemistries and cbc tomorrow Monitor call for significant change, has been suspected of having aspiration pneumonia based on review of records and does have persistent cough productive of sputum but in talking with her this is chronic as well to a degree. With cessation of antibiotics will monitor for worsening. Supportive care otherwise Plans were reviewed with patient and she was given an opportunity to ask questions which were answered Full code Attestations Medical Necessity Statement*: Requires ongoing inpatient stay for continued management of comorbid conditions as noted above. She remains on IV drips with close monitoring of output and laboratory studies. Need to begin discussions of goals of care with her more definitively under the circumstances. 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 CHF (congestive heart failure) I50.43 Heart failure type: combined systolic and diastolic Heart failure chronicity: acute on chronic Pulmonary hypertension I27.20 Aortic stenosis I35.0 Cardiac valve disease etiology: nonrheumatic Acute kidney injury superimposed on chronic kidney disease N17.9; N18.9 Shingles outbreak B02.9 Herpes zoster complications: without complications Mass of left cardiac ventricle I51.89 Low blood pressure I95.2 Hypotension type: hypotension due to drug UTI (urinary tract infection) N39.0 Left renal mass N28.89 Aspiration pneumonia J69.0 Hemoptysis R04.2 Acute gout M10.9 Atrial fibrillation with RVR I48.91 Anemia D64.9
[2021-01-11] VITALS (10 sets, daily range): BP systolic 102–120; BP diastolic 56–70; PULSE 72–83; RESP 16–20; TEMP 36.4–36.7; O2SAT 90–92
[2021-01-11] MEDS: FUROsemide 100 MG in sodium chloride 0.9% 40 ML IV ×2 (00:34→13:57)
[2021-01-11] MEDS: dilTIAZem 30 mg Tablet 60 MG PO ×4 (04:23→22:03)
[2021-01-11 04:45] LABS: Basophils % 0.1 %; Hematocrit 31.6 % (37.0-47.0); Hemoglobin 9.3 g/dL (11.5-15.3); Lymphocytes # 0.3 10^3/uL (0.8-4.8); Lymphocytes % 2.1 %; Mean Corpuscular HGB Conc 29.4 g/dL (30.0-36.0); Mean Corpuscular Hemoglobin 24.7 pg (28.0-34.0); Mean Platelet Volume 10.3 fL (7.4-10.4); Monocytes % 6.8 %; Neutrophils # 12.72 10^3/uL (1.8-7.7); Neutrophils % 90.6 %; Nucleated Red Blood Cells % 0 %; Platelet Count 197 10^3/cmm (130-400); Red Blood Count 3.76 10^6/uL (4.1-5.3); Red Cell Distribution Width 22.7 % (12.1-15.1); White Blood Count 14.1 10^3/uL (4.0-10.0)
[2021-01-11 05:06] LABS: Magnesium 2.2 mg/dL (1.7-2.3); Phosphorus 6.5 mg/dL (2.5-4.5)
[2021-01-11 05:08] LABS: Anion Gap 15.2 (5-19); Calcium 8.2 mg/dL (8.5-10.5); Carbon Dioxide 25 mmol/L (22-29); Chloride 97 mmol/L (98-107); Glucose 145 mg/dL (65-115); Osmolality Calculated 307 mOsm/kg (285-295); Potassium 4.2 mmol/L (3.5-5.1); Sodium 133 mmol/L (136-145)
[2021-01-11 05:11] LABS: Blood Urea Nitrogen 92 mg/dL (8-23)
--- NOTE | 2021-01-11 07:20 | PM.PN ---
Subjective Subjective: Interval history: feels better. dec edema and SOB. new Left arm edema Medications: Reviewed: Yes Medication Review Details: Current Medications Acetaminophen (Acetaminophen 325 Mg Tablet) 325 mg PO QID PRN PRN Reason: FEVER Acyclovir (Acyclovir 400 Mg Tablet) 1,000 mg PO Q24H [facility] Last Admin: 01/06/21 14:03 Dose: 1,000 mg Documented by: Aspirin (Aspirin 81 Mg Ec Tablet) 81 mg PO DAILY [facility] Last Admin: 01/08/21 08:22 Dose: 81 mg Documented by: Atorvastatin Calcium (Atorvastatin 40 Mg Tablet) 40 mg PO Q24H [facility] Last Admin: 01/10/21 12:35 Dose: 40 mg Documented by: Diltiazem HCl (Diltiazem 30 Mg Tablet) 60 mg PO Q6H [facility] Last Admin: 01/11/21 04:23 Dose: 60 mg Documented by: Heparin Sodium (Beef Lung) (Heparin 5,000 Unit/Ml Inj 1 Ml) 5,000 unit SUBCUT Q12H [facility] Last Admin: 01/10/21 22:22 Dose: Not Given Documented by: Dopamine HCl/Dextrose (Intropin Drip) 400 mg in 250 mls @ 7.603 mls/hr IV CONT RITA; Protocol Last Admin: 01/10/21 02:01 Dose: 3 mcg/kg/min, 7.6 mls/hr Documented by: Furosemide 100 mg/ Sodium (Chloride) 50 mls @ 5 mls/hr IV .Q10H [facility] Last Admin: 01/11/21 00:34 Dose: 10 mg/hr, 5 mls/hr Documented by: Metolazone (Metolazone 5 Mg Tablet) 5 mg PO DAILY [facility] Last Admin: 01/10/21 08:42 Dose: 5 mg Documented by: Midodrine (Midodrine 5 Mg Tablet) 10 mg PO TID [facility] Last Admin: 01/10/21 22:15 Dose: 10 mg Documented by: Morphine Sulfate (Morphine Ir 15 Mg Tablet) 15 mg PO Q8H PRN PRN Reason: foot pain Ondansetron HCl (Ondansetron 2 Mg/Ml Sdv 2 Ml) 4 mg IVP Q6H PRN PRN Reason: NAUSEA AND VOMITING Last Admin: 01/08/21 23:19 Dose: 4 mg Documented by: Pantoprazole Sodium (Pantoprazole Dr 40 Mg Tablet) 40 mg PO DAILY [facility] Last Admin: 01/10/21 08:41 Dose: 40 mg Documented by: Prednisone (Prednisone 20 Mg Tablet) 20 mg PO DAILY [facility] Senna/Docusate Sodium (Sennosides-Docusate Tablet) 1 tab PO DAILY [facility] Last Admin: 01/10/21 08:42 Dose: 1 tab Documented by: Sevelamer Carbonate (Sevelamer 800 Mg Tablet) 1,600 mg PO TID [facility] Last Admin: 01/10/21 22:14 Dose: 1,600 mg Documented by: Vitals/I&O/Wt Last Vital Signs Temp 98.0 F 01/11/21 04:00 Pulse 74 01/11/21 06:27 Resp 18 01/11/21 04:00 BP 118/60 01/11/21 04:00 Pulse Ox 90 01/11/21 00:00 01/10/21 01/11/21 01/11/21 22:59 06:59 14:59 Intake Total 60 / 210 50 / 260 Output Total 800 / 1400 1000 / 2400 Balance -740 / -1190 -950 / -2140 Physical Exam Narrative: EXAM NARRATIVE: obese lady lying in bed, comfortable on nc 02 3L vs noted and stable heent- nc/at, eomi neck- obese lungs crackles b/l dec heart-irreg irreg, +ELIZABETH abd soft, ascites, +BS ext b/l edema of legs are improved LUE swollen neuro- a,a, o x 2+, no asterixis. + rash Urinary Catheter Management^: Escobar: Cath Placed During This Visit: yes Reason for Continuing Indwelling Catheter: Acute Urinary Retention or Obstruction Urinary Catheter Date of Insertion: 01/07/21 Urinary Catheter Time of Insertion: 09:46 Data : 01/11/21 04:06 01/11/21 04:06 Micro: Microbiology 01/09/21 23:30 Urine Culture - Preliminary Urine Catheterized 01/09/21 16:35 Blood Culture - Preliminary Blood NEGATIVE TO DATE 01/10/21 08:48 Blood Culture - Preliminary Blood SPECIMEN COLLECTED A&P Additional A&P Information 1. Acute renal failure felt due to DM, Rt heart failure and CRS -Good uop w/ lasix drip, metolazone, and dopamine. dec dopamine to 2 and lasix to 6 -she said she only agrees to HD- if it is last approach possible - phos 6.3 to 6.5, cont binders -met acidosis improving 1b. CKD stage 4- b/l cr approx 1.9 from age, CRS - PTH 117- repeat in 4 weeks poor appetite- from SHAQUILLE and prednisone Renal imaging noted, large indeterminate cyst seen in the left kidney; I agree without patient follow up 2. A. fib with RVR and hemodynamics Currently controlled -keep k > 4, mag> 2- even on diuretics 3. gout- on prednisone- can raise bun- taper as tolerated 4. 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 echo EF 45% There is thickening of subvalvular apparatus of the mitral valve which is less likely to be vegetation and mostly it is due to calcification. 5. UTI- renal dose abx. leukocytosis stable -urine cx is NGTD 6. anemia -iron sat 6.7%, ferritin 26- iv iron 7. hyponatremia from SHAQUILLE and cHF -improving -TSH pending -na relatively stable w/ diuresis 8. DM control per medicine Patient seen and examined via telemedicine, with the assistance of the bedside RN 30 min spent in evaluation and mgmt of patient discussed in detail w/ RN Attestations Medical Necessity Statement*: chf, shaquille Time Spent in Patient Care: 16 - 35 minutes Coding Level of Care Code Acute Bit Tripoler for Gaby Curry
--- NOTE | 2021-01-11 07:30 | USCV_ITS ---
Beemer, [place] Age: 85 Gender: F : 1935 Exam Date: 01/11/2021 15:28 Ordering Phys: Lele Levy MD Technologist: Karin Huffman Exam Location[place] [facility] [place] Indication: SWOLLEN PAINFUL LT ARM HISTORY: Swollen Lt arm. PROCEDURES: Venous duplex imaging was performed in only the left upper extremity. The following venous structures were evaluated: internal jugular vein, subclavian vein, axillary vein, and brachial veins. In addition, the basilic vein, cephalic vein, radial vein, and ulnar vein. FINDINGS: No DVT seen in any vessel examined The veins were found to be easily compressible with spontaneous blood flow. Non pulsatile flow pattern. CONCLUSIONS No evidence of venous thrombosis in the above-mentioned identifiable veins Dr Riri Farmer MD [facility] (Electronically Signed) Final Date: 13 January 2021 08:23 S
--- NOTE | 2021-01-11 07:33 | PC.NURSE ---
call received from Dr khan with instructions to decrease Lasix drip to 6mg and dopamine drip to 2 in attempts to wean patient off IV drips
[2021-01-11 08:22] LABS: T4 Total 4.9 mcg/dL (5.1-11.9)
[2021-01-11] MEDS: sevelamer 800 mg Tablet 1600 MG PO ×3 (08:28→22:06)
[2021-01-11] MEDS: pantoprazole DR 40 mg Tablet PO (08:29)
[2021-01-11] MEDS: midodrine 5 mg TABLET 10 MG PO ×3 (08:29→22:03)
[2021-01-11] MEDS: metOLazone 5 MG Tablet PO (08:29)
[2021-01-11] MEDS: sennosides-docusate Tablet 1 TAB PO (08:29)
[2021-01-11] MEDS: predniSONE 20 mg Tablet PO (08:29)
--- NOTE | 2021-01-11 10:05 | PC.SOCIAL ---
IMM Updated Updated pt on Pg 2 IMM. No questions voiced. Provided pt a copy. Signed, dated, & timed a copy & placed in chart.
[2021-01-11] MEDS: aspirin 81 mg EC Tablet PO (10:42)
[2021-01-11 16:59] LABS: Creatinine, Random Urine 132 mg/dL (20-275); Protein, Total, Random 294 mg/dL (5-24); Protein/Creatinine Ratio 2.227 (0.021-0.161); Protein/Creatinine Ratio 2227 mg/g creat (21-161)
[2021-01-11] MEDS: DOPamine drip 400 MG/250 ML PREMIX 5.1 MG IV (17:31)
--- NOTE | 2021-01-11 19:32 | PC.NURSE ---
Brother Manny insisting to come in and see patient [place] outlet manager notified instructed to let family member in to see patient this nurse had just checked on patient prior to the events above and patient resting in bed with no s/s of distress or pain upon brothsheela sheridan being brought to room by ancillary staff; staff came to this nurse and reported patient is bleeding. This nurse along with other nursing staff on unit responded to room; patient's IV found to have com apart and was back flowing EBL 20ml site cleaned and fixed bed sheet and gown changed patient denied any pain at site. Patient stated I am fine just seen the blood and could not find my call button I'm glad you came in when you did Brothsheela requested to speak with nurse about patient proceed to start yelling at this nurse in [address] about finding his sister in this condition and how the boy that brought him to the room had told him he had checked on patient and she had no visitors at this time and it was ok for him to come in now. Brother was upset due to him thinking the man that had brought him to the room had just seen the patient and left her bleeding without alerting a nurse. Brothsheela demanding to speak with administration now and to take this nurse to the admin office to sort this out. This nurse attempted to explain to this family member the policy in place for visitors; also she had not been in that state just a few moments ago and the man that brought him to the room had not seen nor spoken to the patient and he had spoke with this nurse about letting additional visitors in. risk management called and grievance reported. while on phone with risk management another visitor was at front end web developer to see patient a grandson. Risk management reported to me to let visitor in to see patient. grandson at bedside expressed concerns for patient safety at home as well as bad family dynamics and corals between patient's brothers. The grandson asking to be able to call nurses for updates and to be called by staff if anything changed. This nurse sat at bedside and spoke with patient about her wishes. Patient stated I don't care if Louie (grandson) gets updates, as little information as possible I do not want information spread all over [employer] I do not want don to have any information from nurses. please send all calls to me. This nurse assured patient she would pass this along in report to other care team members.
--- NOTE | 2021-01-11 20:12 | P.PN_ITS ---
Subjective Subjective: Interval history: Not feeling as well today. Had some rough social issues only today and did not sleep well last night. Lasix and dopamine drips have been decreased. Prednisone was decreased yesterday Vitals/I&O/Wt Last Vital Signs Temp 97.5 F L 01/11/21 16:00 Pulse 83 01/11/21 16:00 Resp 18 01/11/21 16:00 BP 118/56 01/11/21 16:00 Pulse Ox 92 01/11/21 16:00 01/11/21 01/11/21 01/11/21 06:59 14:59 22:59 Intake Total 50 / 260 660.000 / 660.000 120 / 780.000 Output Total 1000 / 2400 1350 / 1350 Balance -950 / -2140 660.000 / 660.000 -1230 / -570.000 Physical Exam Narrative: EXAM NARRATIVE: Not as cheerful today, worn out Scattered wheezes remain, not coughing as much today Heart sounds distant Abdomen is soft Tender to palpation almost wherever you touch her. Has persistent edema although I am starting to see some wrinkles in skin. Right great toe is improved Escobar catheter is noted Speech is clear, moves all extremities Urinary Catheter Management^: Escobar: Cath Placed During This Visit: yes Reason for Continuing Indwelling Catheter: Accurate Measurement of Urinary Output in Critically Ill Patients Urinary Catheter Date of Insertion: 01/07/21 Urinary Catheter Time of Insertion: 09:46 Data : 01/11/21 04:06 01/11/21 04:06 Micro: Microbiology 01/10/21 08:48 Blood Culture - Preliminary Blood NEGATIVE TO DATE 01/09/21 23:30 Urine Culture - Preliminary Urine Catheterized 01/09/21 16:35 Blood Culture - Preliminary Blood NEGATIVE TO DATE A&P Assessment and plan (1) CHF (congestive heart failure): Status: Chronic Qualifiers: Heart failure type: combined systolic and diastolic Heart failure chronicity: acute on chronic Qualified Code(s): I50.43 - Acute on chronic combined systolic (congestive) and diastolic (congestive) heart failure (2) Pulmonary hypertension: Status: Chronic (3) Aortic stenosis: Status: Chronic Qualifiers: Cardiac valve disease etiology: nonrheumatic Qualified Code(s): I35.0 - Nonrheumatic aortic (valve) stenosis (4) Acute kidney injury superimposed on chronic kidney disease: Acute renal failure Status: Acute (5) Shingles outbreak: Status: Acute Qualifiers: Herpes zoster complications: without complications Qualified Code(s): B02.9 - Zoster without complications (6) Mass of left cardiac ventricle: Status: Acute (7) Low blood pressure: Status: Acute Qualifiers: Hypotension type: hypotension due to drug Qualified Code(s): I95.2 - Hypotension due to drugs (8) UTI (urinary tract infection): Urine culture no growth final to Status: Acute (9) Left renal mass: Status: Acute (10) Aspiration pneumonia: Status: Acute (11) Hemoptysis: Status: Acute (12) Acute gout: Status: Acute (13) Atrial fibrillation with RVR: Status: Acute (14) Anemia: Status: Chronic Additional A&P Information Appreciate nephrology input Continue trending downward of Lasix drip and dopamine On a lower dose of metolazone Continue fluid restriction and close monitoring of urine output Continue dopamine at fixed renal dosing Continue on midodrine 3 times daily On Renvela On prednisone for coverage of gout with plan to stop after another couple of days Primaxin stopped on 01/10 Monitor for evidence of developing infection On aspirin as well as oral diltiazem Remains off of home lisinopril Off of home Eliquis due to episode of hemoptysis earlier in hospital stay, hemoglobin stable Currently on subcu heparin for DVT prophylaxis Free T4 was normal Urine protein electrophoresis still pending On PPI On pain medications On acyclovir for shingles Will need outpatient follow up for renal mass Supportive care otherwise Plans were reviewed with patient and she was given an opportunity to ask qu estions which were answered Full code Attestations Medical Necessity Statement*: Requires ongoing inpatient stay will be continue to adjust IV drips in an attempt to achieve a more euvolemic state. Last 36 h ours or so she has finally achieved negative fluid balance. Challenge will be maintaining this off of IV treatment. Plans are as noted. Coding Level of Care Code Acute Tile Mechanic Helper for g Fwd Diagnoses CHF (congestive heart failure) I50.43 Heart failure type: combined systolic and diastolic Heart failure chronicity: acute on chronic Pulmonary hypertension I27.20 Aortic stenosis I35.0 Cardiac valve disease etiology: nonrheumatic Acute kidney injury superimposed on chronic kidney disease N17.9; N18.9 Shingles outbreak B02.9 Herpes zoster complications: without complications Mass of left cardiac ventricle I51.89 Low blood pressure I95.2 Hypotension type: hypotension due to drug UTI (urinary tract infection) N39.0 Left renal mass N28.89 Aspiration pneumonia J69.0 Hemoptysis R04.2 Acute gout M10.9 Atrial fibrillation with RVR I48.91 Anemia D64.9
[2021-01-12] VITALS (11 sets, daily range): BP systolic 110–120; BP diastolic 52–67; PULSE 76–96; RESP 13–16; TEMP 36.4–36.6; O2SAT 90–96
[2021-01-12] MEDS: dilTIAZem 30 mg Tablet 60 MG PO ×4 (03:54→20:59)
[2021-01-12 04:52] LABS: Basophils % 0.2 %; Eosinophils % 0.1 %; Hematocrit 28.5 % (37.0-47.0); Hemoglobin 8.5 g/dL (11.5-15.3); Lymphocytes # 0.5 10^3/uL (0.8-4.8); Lymphocytes % 3.7 %; Mean Corpuscular HGB Conc 29.8 g/dL (30.0-36.0); Mean Corpuscular Hemoglobin 24.9 pg (28.0-34.0); Mean Corpuscular Volume 83.6 fL (81-99); Mean Platelet Volume 10.6 fL (7.4-10.4); Monocytes # 1.5 10^3/uL (0.2-0.9); Monocytes % 12.1 %; Neutrophils # 10.13 10^3/uL (1.8-7.7); Neutrophils % 83.4 %; Nucleated Red Blood Cells % 0 %; Platelet Count 179 10^3/cmm (130-400); Red Blood Count 3.41 10^6/uL (4.1-5.3); Red Cell Distribution Width 22.7 % (12.1-15.1); White Blood Count 12.1 10^3/uL (4.0-10.0)
[2021-01-12 05:10] LABS: Albumin Level 3.2 g/dL (3.5-5.2); Alkaline Phosphatase 71 IU/L (35-105); Carbon Dioxide 27 mmol/L (22-29); Chloride 91 mmol/L (98-107); Globulin 2.7 g/dL (1.3-4.6); Glucose 125 mg/dL (65-115); Magnesium 2.2 mg/dL (1.7-2.3); Osmolality Calculated 303 mOsm/kg (285-295); Phosphorus 5.2 mg/dL (2.5-4.5); Sodium 131 mmol/L (136-145); Total Bilirubin 0.9 mg/dL (0.15-1.2); Total Protein 5.9 g/dL (6.6-8.7)
[2021-01-12 05:13] LABS: Alanine Aminotransferase 13 U/L (0-33); Anion Gap 17.3 (5-19); Aspartate Amino Transferase 29 U/L (0-32); Potassium 4.3 mmol/L (3.5-5.1)
[2021-01-12 05:14] LABS: Blood Urea Nitrogen 94 mg/dL (8-23)
[2021-01-12] MEDS: FUROsemide 100 MG in sodium chloride 0.9% 40 ML IV (06:24)
--- NOTE | 2021-01-12 07:32 | P.PN_ITS ---
Subjective Subjective: Interval history: feeling better. still on oxygen, decreased dopamine. improved appetite. no cp. less sob, no n/v/f/c/stock/d Medications: Reviewed: Yes Medication Review Details: Current Medications Acetaminophen (Acetaminophen 325 Mg Tablet) 325 mg PO QID PRN PRN Reason: FEVER Acyclovir (Acyclovir 400 Mg Tablet) 1,000 mg PO Q24H [facility] Last Admin: 01/06/21 14:03 Dose: 1,000 mg Documented by: Aspirin (Aspirin 81 Mg Ec Tablet) 81 mg PO DAILY [facility] Last Admin: 01/11/21 10:42 Dose: 81 mg Documented by: Atorvastatin Calcium (Atorvastatin 40 Mg Tablet) 40 mg PO Q24H [facility] Last Admin: 01/11/21 14:31 Dose: Not Given Documented by: Diltiazem HCl (Diltiazem 30 Mg Tablet) 60 mg PO Q6H [facility] Last Admin: 01/12/21 03:54 Dose: 60 mg Documented by: Heparin Sodium (Beef Lung) (Heparin 5,000 Unit/Ml Inj 1 Ml) 5,000 unit SUBCUT Q12H [facility] Last Admin: 01/11/21 22:02 Dose: Not Given Documented by: Dopamine HCl/Dextrose (Intropin Drip) 400 mg in 250 mls @ 5.069 mls/hr IV CONT RITA; Protocol Last Admin: 01/11/21 17:32 Dose: Not Given Documented by: Furosemide 100 mg/ Sodium (Chloride) 50 mls @ 3 mls/hr IV .[id number] [facility] Last Admin: 01/12/21 06:24 Dose: 6 mg/hr, 3 mls/hr Documented by: Metolazone (Metolazone 5 Mg Tablet) 5 mg PO DAILY [facility] Last Admin: 01/11/21 08:29 Dose: 5 mg Documented by: Midodrine (Midodrine 5 Mg Tablet) 10 mg PO TID [facility] Last Admin: 01/11/21 22:03 Dose: 10 mg Documented by: Morphine Sulfate (Morphine Ir 15 Mg Tablet) 15 mg PO Q8H PRN PRN Reason: foot pain Ondansetron HCl (Ondansetron 2 Mg/Ml Sdv 2 Ml) 4 mg IVP Q6H PRN PRN Reason: NAUSEA AND VOMITING Last Admin: 01/08/21 23:19 Dose: 4 mg Documented by: Pantoprazole Sodium (Pantoprazole Dr 40 Mg Tablet) 40 mg PO DAILY [facility] Last Admin: 01/11/21 08:29 Dose: 40 mg Documented by: Prednisone (Prednisone 20 Mg Tablet) 20 mg PO DAILY [facility] Last Admin: 01/11/21 08:29 Dose: 20 mg Documented by: Senna/Docusate Sodium (Sennosides-Docusate Tablet) 1 tab PO DAILY [facility] Last Admin: 01/11/21 08:29 Dose: 1 tab Documented by: Sevelamer Carbonate (Sevelamer 800 Mg Tablet) 1,600 mg PO TID [facility] Last Admin: 01/11/21 22:06 Dose: 1,600 mg Documented by: Vitals/I&O/Wt Last Vital Signs Temp 97.9 F 01/12/21 05:05 Pulse 81 01/12/21 05:43 Resp 16 01/12/21 03:52 BP 110/60 01/12/21 03:52 Pulse Ox 90 01/12/21 00:00 01/11/21 01/12/21 01/12/21 22:59 06:59 14:59 Intake Total 120 / 780.000 199.3 / 979.300 Output Total 1350 / 1350 1800 / 3150 Balance -1230 / -570.000 -1600.7 / -2170.700 Physical Exam Narrative: EXAM NARRATIVE: obese lady lying in bed, comfortable on nc 02 3L vs noted and stable heent- nc/at, eomi neck- obese lungs crackles b/l dec heart-irreg irreg, +ELIZABETH abd soft, ascites, +BS ext b/l edema of legs are improved LUE swollen neuro- a,a, o x 2+, no asterixis. + rash Urinary Catheter Management^: Escobar: Cath Placed During This Visit: yes Reason for Continuing Indwelling Catheter: Acute Urinary Retention or Obstruction Urinary Catheter Date of Insertion: 01/07/21 Urinary Catheter Time of Insertion: 09:46 Data : 01/12/21 04:16 01/12/21 04:16 Micro: Microbiology 01/10/21 08:48 Blood Culture - Preliminary Blood NEGATIVE TO DATE 01/09/21 23:30 Urine Culture - Preliminary Urine Catheterized A&P Additional A&P Information 1. Acute renal failure felt due to DM, Rt heart failure and CRS -Good uop w/ lasix drip, metolazone, and dopamine. -will change lasix to 40 mgm iv bid -she said she only agrees to HD- if it is last approach possible - phos 6.3 to 6.5 to 5.2 with binders -met acidosis improved 2. CKD stage 4- b/l cr approx 1.9 from age, CRS - PTH 117- repeat in 4 weeks Renal imaging noted, large indeterminate cyst seen in the left kidney; I agree without patient follow up w/ urology and repeat renal us 3. A. fib with RVR and hemodynamics Currently controlled -keep k > 4, mag> 2- even on diuretics 4. gout- on prednisone- can raise bun- taper as tolerated 5. 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 echo EF 45% There is thickening of subvalvular apparatus of the mitral valve which is less likely to be vegetation and mostly it is due to calcification. 6. UTI- renal dose abx. leukocytosis stable -urine cx is NGTD 7. anemia -iron sat 6.7%, ferritin 26- iv iron 8. hyponatremia from SHAQUILLE and cHF , along w/ lasix and metolazone -if na continues to decrease, may benefit from tolvaptan -TSH normal 9. DM control per medicine Patient seen and examined via telemedicine, with the assistance of the bedside RN 30 min spent in evaluation and mgmt of patient discussed in detail w/ RN Attestations Medical Necessity Statement*: CHF, SHAQUILLE, CKD, dopamine dep, Time Spent in Patient Care: 16 - 35 minutes Coding Level of Care Code Acute Crnp for Anatg Patricio
[2021-01-12] MEDS: FUROsemide 10 mg/mL SDV 4mL 40 MG IVP ×2 (08:56→21:01)
[2021-01-12] MEDS: sevelamer 800 mg Tablet PO ×3 (08:56→17:01)
[2021-01-12] MEDS: sennosides-docusate Tablet 1 TAB PO (09:03)
[2021-01-12] MEDS: aspirin 81 mg EC Tablet PO (09:03)
[2021-01-12] MEDS: pantoprazole DR 40 mg Tablet PO (09:03)
[2021-01-12] MEDS: metOLazone 5 MG Tablet PO (09:04)
[2021-01-12] MEDS: predniSONE 20 mg Tablet PO (09:04)
[2021-01-12] MEDS: midodrine 5 mg TABLET 10 MG PO ×3 (09:04→21:00)
[2021-01-12 09:38] LABS: Albumin,Urine Random 48 %; Alpha-1-Globulins Urine Random 1 %; Alpha-2-Globulins Urine Random 11 %; Beta-Globulin,Urine Random 13 %; Gamma Globulin,Urine Random 28 %
[2021-01-12] MEDS: acyclovir 400 mg Tablet 1000 MG PO (14:03)
[2021-01-12] MEDS: DOPamine drip 400 MG/250 ML PREMIX 5.1 MG IV (17:09)
[2021-01-12] MEDS: atorvastatin 40 mg Tablet PO (20:57)
--- NOTE | 2021-01-12 21:31 | PM.PN ---
Subjective Subjective: Interval history: Patient weak today after doing a bit more physically. Additionally she has had some social issues related to family members. Nursing notes from the evening of the describe this clearly including angry family members, another family member expressing concerns about patient's safety at home. Patient does not want much information shared with anybody although she is okay of her grandson Riccardo gets some updates. I am concerned about ultimate disposition and her safety based on some of this. She has been changed to every 12 hours scheduled Lasix today. Remains on dopamine at low rate. Negative approximately 5 L from admission. Azotemia continues to trend upward, creatinine appears stable. Denies increased difficulty breathing. Complains of hurting all over but admits that some parts feel better. She had another episode of hemoptysis last evening. I am not able to find clear clarification of exactly how much this was. Also unclear if this was just pink frothy sputum or lauren bright red blood. Heparin was held. Vitals/I&O/Wt Last Vital Signs Temp 97.7 F 01/12/21 20:00 Pulse 88 01/12/21 20:00 Resp 15 01/12/21 20:00 BP 112/58 01/12/21 20:00 Pulse Ox 90 01/12/21 20:00 01/12/21 01/12/21 01/12/21 06:59 14:59 22:59 Intake Total 199.3 / 979.300 244.35 / 244.35 120.53 / 364.88 Output Total 1800 / 3150 1000 / 1000 Balance -1600.7 / -2170.700 -755.65 / -755.65 120.53 / -635.12 Physical Exam Narrative: EXAM NARRATIVE: Looks like she is worn out today, lungs relatively clear anteriorly, decreased at the bases, regular rhythm, abdomen is soft, remains tender to touch anywhere, no increase in edema, did not jump when I touched her right foot, Escobar catheter is noted, Speech is clear, moves all extremities Urinary Catheter Management^: Escobar: Cath Placed During This Visit: yes Reason for Continuing Indwelling Catheter: Acute Urinary Retention or Obstruction Urinary Catheter Date of Insertion: 01/07/21 Urinary Catheter Time of Insertion: 09:46 Data : 01/12/21 04:16 01/12/21 04:16 Micro: Microbiology 01/07/21 15:03 Blood Culture - Final Blood NO GROWTH AFTER 5 DAYS 01/07/21 14:59 Blood Culture - Final Blood NO GROWTH AFTER 5 DAYS 01/09/21 23:30 Urine Culture - Final Urine Catheterized A&P Assessment and plan (1) CHF (congestive heart failure): Status: Chronic Qualifiers: Heart failure type: combined systolic and diastolic Heart failure chronicity: acute on chronic Qualified Code(s): I50.43 - Acute on chronic combined systolic (congestive) and diastolic (congestive) heart failure (2) Pulmonary hypertension: Status: Chronic (3) Aortic stenosis: Status: Chronic Qualifiers: Cardiac valve disease etiology: nonrheumatic Qualified Code(s): I35.0 - Nonrheumatic aortic (valve) stenosis (4) Acute kidney injury superimposed on chronic kidney disease: Acute renal failure Status: Acute (5) Shingles outbreak: Status: Acute Qualifiers: Herpes zoster complications: without complications Qualified Code(s): B02.9 - Zoster without complications (6) Mass of left cardiac ventricle: Status: Acute (7) Low blood pressure: Currently on midodrine and dopamine Status: Acute Qualifiers: Hypotension type: hypotension due to drug Qualified Code(s): I95.2 - Hypotension due to drugs (8) UTI (urinary tract infection): Urine culture no growth final Status: Acute (9) Left renal mass: Will need outpatient follow-up Status: Acute (10) Aspiration pneumonia: Status post treatment Status: Acute (11) Hemoptysis: Has recurred Status: Acute (12) Acute gout: Improving Status: Acute (13) Atrial fibrillation with RVR: Status: Acute (14) Anemia: Further drop noted today Status: Acute Additional A&P Information Appreciate nephrology input Continue decreasing Lasix as tolerates On a lower dose of metolazone Remains on fluid restriction Continue to try to decrease dopamine as blood pressures tolerate Continue on midodrine 3 times daily On Renvela Decrease prednisone to 10 mg a day with plan to stop by the weekend Will need to monitor blood pressures with decreasing dose of steroids Primaxin stopped on 01/10 On acyclovir orally for shingles Monitor for evidence of developing infection On aspirin as well as oral diltiazem Remains off of home lisinopril secondary to renal function and hypotension Off of home Eliquis due to episode of hemoptysis earlier in hospital stay, hemoglobin stable Patient intolerant of SCDs secondary to pain although they are ordered and has had hemoptysis with a drop in hemoglobin so not currently on any pharmacological DVT prophylaxis Urine protein electrophoresis still pending On PPI On pain medications Will need outpatient follow up for renal mass Supportive care otherwise Plans were reviewed with patient and she was given an opportunity to ask questions See if social science professor can assist with the family dynamics and disposition planning Full code Attestations Medical Necessity Statement*: Requires ongoing inpatient stay for continued management with IV diuretics, pressors as needed and other care noted above. We are starting to see improvement in overall status Coding Level of Care Code Acute Sign Carpenter for Chg Fwd Diagnoses CHF (congestive heart failure) I50.43 Heart failure type: combined systolic and diastolic Heart failure chronicity: acute on chronic Pulmonary hypertension I27.20 Aortic stenosis I35.0 Cardiac valve disease etiology: nonrheumatic Acute kidney injury superimposed on chronic kidney disease N17.9; N18.9 Shingles outbreak B02.9 Herpes zoster complications: without complications Mass of left cardiac ventricle I51.89 Low blood pressure I95.2 Hypotension type: hypotension due to drug UTI (urinary tract infection) N39.0 Left renal mass N28.89 Aspiration pneumonia J69.0 Hemoptysis R04.2 Acute gout M10.9 Atrial fibrillation with RVR I48.91 Anemia D64.9
[2021-01-13] VITALS (13 sets, daily range): BP systolic 110–126; BP diastolic 52–62; PULSE 65–102; RESP 13–18; TEMP 36.5–37; O2SAT 90–99; BMI 28.3
[2021-01-13] MEDS: dilTIAZem 30 mg Tablet 60 MG PO ×4 (03:58→20:52)
[2021-01-13 05:39] LABS: Basophils % 0.1 %; Eosinophils % 0.1 %; Hematocrit 26.9 % (37.0-47.0); Hemoglobin 7.8 g/dL (11.5-15.3); Lymphocytes # 0.4 10^3/uL (0.8-4.8); Lymphocytes % 4.8 %; Mean Corpuscular Hemoglobin 24.5 pg (28.0-34.0); Mean Corpuscular Volume 84.6 fL (81-99); Mean Platelet Volume 10.4 fL (7.4-10.4); Monocytes # 1.3 10^3/uL (0.2-0.9); Monocytes % 14.1 %; Neutrophils % 80.6 %; Nucleated Red Blood Cells % 0.2 %; Platelet Count 150 10^3/cmm (130-400); Red Blood Count 3.18 10^6/uL (4.1-5.3); Red Cell Distribution Width 22.4 % (12.1-15.1); White Blood Count 9.2 10^3/uL (4.0-10.0)
[2021-01-13 05:59] LABS: Alanine Aminotransferase 10 U/L (0-33); Albumin Level 2.9 g/dL (3.5-5.2); Alkaline Phosphatase 63 IU/L (35-105); Anion Gap 15.9 (5-19); Aspartate Amino Transferase 15 U/L (0-32); Calcium 7.8 mg/dL (8.5-10.5); Carbon Dioxide 30 mmol/L (22-29); Chloride 95 mmol/L (98-107); Globulin 2.4 g/dL (1.3-4.6); Glucose 123 mg/dL (65-115); Magnesium 2.2 mg/dL (1.7-2.3); Osmolality Calculated 318 mOsm/kg (285-295); Phosphorus 4.1 mg/dL (2.5-4.5); Potassium 3.9 mmol/L (3.5-5.1); Sodium 137 mmol/L (136-145); Total Bilirubin 0.9 mg/dL (0.15-1.2); Total Protein 5.3 g/dL (6.6-8.7)
[2021-01-13 06:03] LABS: Blood Urea Nitrogen 105 mg/dL (8-23)
--- NOTE | 2021-01-13 07:15 | PC.NURSE ---
Dr. Degroot updated on patient condition. Dopamine gtt currently off, VSS. Telephone order from Dr. Degroot to hold Dopamine gtt at this time.
[2021-01-13] MEDS: FUROsemide 10 mg/mL SDV 4mL 40 MG IVP ×2 (08:04→20:51)
[2021-01-13] MEDS: sevelamer 800 mg Tablet PO ×2 (08:04→17:45)
[2021-01-13] MEDS: metOLazone 5 MG Tablet PO (08:09)
[2021-01-13] MEDS: predniSONE 10 mg Tablet PO (08:09)
[2021-01-13] MEDS: midodrine 5 mg TABLET 10 MG PO ×3 (08:09→20:52)
[2021-01-13] MEDS: aspirin 81 mg EC Tablet PO (08:09)
[2021-01-13] MEDS: pantoprazole DR 40 mg Tablet PO (08:09)
[2021-01-13] MEDS: sennosides-docusate Tablet 1 TAB PO (08:10)
--- NOTE | 2021-01-13 08:14 | PM.PN ---
Subjective Subjective: Interval history: pt states she feels much better. she is sitting in a chair, eating, dec edema. she is off of dopamine. states she is less sob. Medications: Reviewed: Yes Medication Review Details: Current Medications Acetaminophen (Acetaminophen 325 Mg Tablet) 325 mg PO QID PRN PRN Reason: FEVER Acyclovir (Acyclovir 400 Mg Tablet) 1,000 mg PO Q24H [facility] Last Admin: 01/12/21 14:03 Dose: 1,000 mg Documented by: Aspirin (Aspirin 81 Mg Ec Tablet) 81 mg PO DAILY [facility] Last Admin: 01/13/21 08:09 Dose: 81 mg Documented by: Atorvastatin Calcium (Atorvastatin 40 Mg Tablet) 40 mg PO BEDTIME [facility] Last Admin: 01/12/21 20:57 Dose: 40 mg Documented by: Diltiazem HCl (Diltiazem 30 Mg Tablet) 60 mg PO Q6H [facility] Last Admin: 01/13/21 03:58 Dose: 60 mg Documented by: Furosemide (Furosemide 10 Mg/Ml Sdv 4ml) 40 mg IVP Q12H [facility] Last Admin: 01/13/21 08:04 Dose: 40 mg Documented by: Heparin Sodium (Beef Lung) (Heparin 5,000 Unit/Ml Inj 1 Ml) 5,000 unit SUBCUT Q12H [facility] Last Admin: 01/11/21 22:02 Dose: Not Given Documented by: Dopamine HCl/Dextrose (Intropin Drip) 400 mg in 250 mls @ 5.069 mls/hr IV CONT [facility]; Protocol Last Admin: 01/12/21 17:09 Dose: 2 mcg/kg/min, 5.1 mls/hr Documented by: Metolazone (Metolazone 5 Mg Tablet) 5 mg PO DAILY [facility] Last Admin: 01/13/21 08:09 Dose: 5 mg Documented by: Midodrine (Midodrine 5 Mg Tablet) 10 mg PO TID [facility] Last Admin: 01/13/21 08:09 Dose: 10 mg Documented by: Morphine Sulfate (Morphine Ir 15 Mg Tablet) 15 mg PO Q8H PRN PRN Reason: foot pain Ondansetron HCl (Ondansetron 2 Mg/Ml Sdv 2 Ml) 4 mg IVP Q6H PRN PRN Reason: NAUSEA AND VOMITING Last Admin: 01/08/21 23:19 Dose: 4 mg Documented by: Pantoprazole Sodium (Pantoprazole Dr 40 Mg Tablet) 40 mg PO DAILY [facility] Last Admin: 01/13/21 08:09 Dose: 40 mg Documented by: Prednisone (Prednisone 10 Mg Tablet) 10 mg PO DAILY [facility] Stop: 01/14/21 10:00 Last Admin: 01/13/21 08:09 Dose: 10 mg Documented by: Senna/Docusate Sodium (Sennosides-Docusate Tablet) 1 tab PO DAILY [facility] Last Admin: 01/13/21 08:10 Dose: 1 tab Documented by: Sevelamer Carbonate (Sevelamer 800 Mg Tablet) 800 mg PO TIDWM [facility] Last Admin: 01/13/21 08:04 Dose: 800 mg Documented by: Vitals/I&O/Wt Last Vital Signs Temp 97.9 F 01/13/21 07:24 Pulse 102 H 01/13/21 07:24 Resp 16 01/13/21 07:24 BP 110/62 01/13/21 07:24 Pulse Ox 95 01/13/21 07:24 01/12/21 01/13/21 01/13/21 22:59 06:59 14:59 Intake Total 120.53 / 364.88 Output Total 1310 / 2310 Balance 120.53 / -635.12 -1310 / -1945.12 Weight last 48 hrs Weight 68.039 kg Weight 68.039 kg Physical Exam Narrative: EXAM NARRATIVE: obese lady lying in bed, comfortable on nc 02 3L vs noted and stable heent- nc/at, eomi neck- obese lungs crackles b/l bases heart-irreg irreg, +ELIZABETH abd soft, ascites, +BS ext b/l edema of legs are improved - however still 1-2 + LUE swollen neuro- a,a, o x 2+, no asterixis. mood good Urinary Catheter Management^: Escobar: Cath Placed During This Visit: yes Reason for Continuing Indwelling Catheter: Acute Urinary Retention or Obstruction Urinary Catheter Date of Insertion: 01/07/21 Urinary Catheter Time of Insertion: 09:46 Data : 01/13/21 04:11 01/13/21 04:11 Micro: Microbiology 01/07/21 15:03 Blood Culture - Final Blood NO GROWTH AFTER 5 DAYS 01/07/21 14:59 Blood Culture - Final Blood NO GROWTH AFTER 5 DAYS 01/09/21 23:30 Urine Culture - Final Urine Catheterized A&P Additional A&P Information 1. Acute renal failure felt due to DM, Rt heart failure and CRS -Good uop w/ lasix , metolazone, and dopamine. -pt is improving. yet is she is weak, swollen, and not doing much. - I discussed dialysis w/ her. she is against PD. however, seems she would accept HD -if she truly consents and e4dema does not improve, may consider dialysis soon - phos 6.3 to 6.5 to 5.2 to 4.1- dec binders -met acidosis improved-now met alkalosis 2. CKD stage 4- b/l cr approx 1.9 from age, CRS - PTH 117- repeat in 4 weeks Renal imaging noted, large indeterminate cyst seen in the left kidney; I agree without patient follow up w/ urology and repeat renal us 3. A. fib with RVR and hemodynamics Currently controlled -keep k > 4, mag> 2- even on diuretics -off of eliquis due to hemoptysis and worsening anemia 4. gout- on prednisone- can raise bun- taper by medicine appreciated 5. 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 echo EF 45% There is thickening of subvalvular apparatus of the mitral valve which is less likely to be vegetation and mostly it is due to calcification. 6. UTI- renal dose abx. leukocytosis stable -urine cx is NGTD 7. anemia -iron sat 6.7%, ferritin 26- iv iron and epo 8. hyponatremia from SHAQUILLE and cHF , along w/ lasix and metolazone -improving -TSH normal 9. DM control per medicine Patient seen and examined via telemedicine, with the assistance of the bedside RN 30 min spent in evaluation and mgmt of patient discussed in detail w/ RN and Dr. Pack Attestations Medical Necessity Statement*: chf, anemia, SHAQUILLE onCKD Time Spent in Patient Care: 16 - 35 minutes Coding Level of Care Code Acute Financial Services Manager for Anatg Patricio
--- NOTE | 2021-01-13 08:55 | PC.SOCIAL ---
IMM Updated Updated pt on Pg 2 IMM. No questions voiced. Provided pt a copy. Signed, dated, & timed a copy & placed in chart.
[2021-01-13 13:20] LABS: Hematocrit 27.1 % (37.0-47.0); Hemoglobin 8.1 g/dL (11.5-15.3)
[2021-01-13] MEDS: acyclovir 400 mg Tablet 1000 MG PO (14:03)
--- NOTE | 2021-01-13 14:43 | P.PN_ITS ---
Subjective Subjective: Interval history: Patient feeling better today. She was able to get some rest last night. Is currently off of dopamine and Lasix drip. On every 12 hours IV Lasix dosing. BUN and creatinine continue to increase. Hemoglobin was down. She reports that she had two clumps of what was dark brownish-red material with coughing. No bright red blood was noted with the hemoptysis. She has bruises at sites of multiple lab draws. No blood has been noted in her stool. She was on Eliquis at home. Attempts to put her on prophylactic her treatment dose anticoagulation here of led to these episodes of hemoptysis. Her H&H is trended down gradually while here. Discussed with Dr. Levy today. Patient has been adamant about not wanting dialysis previously but she was speaking about peritoneal dialysis. She is amendable to hemodialysis if that is what is recommended. I also spoke with her and she stated that she was agreeable to dialysis if it was done via hemodial ysis. Vitals/I&O/Wt Last Vital Signs Temp 97.7 F 01/13/21 10:51 Pulse 74 01/13/21 10:51 Resp 18 01/13/21 10:51 BP 110/52 01/13/21 10:51 Pulse Ox 97 01/13/21 10:51 01/12/21 01/13/21 01/13/21 22:59 06:59 14:59 Intake Total 120.53 / 364.88 360 / 360 Output Total 1310 / 2310 Balance 120.53 / -635.12 -1310 / -1945.12 360 / 360 Weight last 48 hrs Weight 68.039 kg Weight 68.039 kg Physical Exam Narrative: EXAM NARRATIVE: More alert and less acutely ill-appearing Decreased in upper extremity edema as well as lower extremity edema Lungs with scattered crackles that improved with cough Irregular rhythm Abdomen is soft Escobar catheter remains in place Urinary Catheter Management^: Escobar: Cath Placed During This Visit: yes Reason for Continuing Indwelling Catheter: Acute Urinary Retention or Obstruction Urinary Catheter Date of Insertion: 01/07/21 Urinary Catheter Time of Insertion: 09:46 Data : 01/13/21 13:05 01/13/21 04:11 Micro: Microbiology 01/07/21 15:03 Blood Culture - Final Blood NO GROWTH AFTER 5 DAYS 01/07/21 14:59 Blood Culture - Final Blood NO GROWTH AFTER 5 DAYS A&P Assessment and plan (1) CHF (congestive heart failure): Status: Chronic Qualifiers: Heart failure type: combined systolic and diastolic Heart failure chronicity: acute on chronic Qualified Code(s): I50.43 - Acute on chronic combined systolic (congestive) and diastolic (congestive) heart failure (2) Pulmonary hypertension: Status: Chronic (3) Aortic stenosis: Status: Chronic Qualifiers: Cardiac valve disease etiology: nonrheumatic Qualified Code(s): I35.0 - Nonrheumatic aortic (valve) stenosis (4) Acute kidney injury superimposed on chronic kidney disease: Acute renal failure Status: Acute (5) Shingles outbreak: Status: Acute Qualifiers: Herpes zoster complications: without complications Qualified Code(s): B02.9 - Zoster without complications (6) Mass of left cardiac ventricle: Status: Acute (7) Low blood pressure: Currently on midodrine; dopamine stopped morning of 01/13 Status: Acute Qualifiers: Hypotension type: hypotension due to drug Qualified Code(s): I95.2 - Hypotension due to drugs (8) UTI (urinary tract infection): Urine culture no growth final Status: Acute (9) Left renal mass: Will need outpatient follow-up Status: Acute (10) Aspiration pneumonia: Status post treatment Status: Acute (11) Hemoptysis: Has recurred Status: Acute (12) Acute gout: Improving Status: Acute (13) Atrial fibrillation with RVR: Status: Acute (14) Anemia: Further drop noted today Status: Acute Additional A&P Information Case was discussed with surgery regarding possibility of line placement We will keep patient n.p.o. for possible procedure in the morning Dr. Coy will be covering tomorrow from nephrology standpoint and patient would like to see if he concurs with plan for hemodialysis for proceeding with line. If he does and she remains in agreement, will formally consult surgery in the morning Not currently on any anticoagulation; will hold aspirin Continue IV Lasix and oral metolazone Continue oral midodrine Dopamine is currently held though we will have to see if we need to resume particularly with dialysis We will complete steroid therapy tomorrow Continue oral Cardizem with plan to transition to long-acting Monitor for any signs of bleeding for which we can intervene, currently will just hold anticoagulation Type and screen in case needs transfusion Primaxin stopped on 01/10 On acyclovir orally for shingles Monitor for evidence of developing infection Remains off of home lisinopril secondary to renal function and hypotension Patient intolerant of SCDs secondary to pain although they are ordered and has had hemoptysis with a drop in hemoglobin so not currently on any pharmacological DVT prophylaxis Urine protein electrophoresis still pending On PPI On pain medications Will need outpatient follow up for renal mass Supportive care otherwise Plans were reviewed with patient and she was given an opportunity to ask questions See if social work lecturer can assist with the family dynamics and disposition planning Full code Attestations Medical Necessity Statement*: Requires ongoing inpatient management for issues as noted above. She has required aggressive management to achieve diuresis and consideration is now being given to initiation of hemodialysis. Coding Level of Care Code Acute Foiling Machine Adjuster for Gaby uCrry Diagnoses CHF (congestive heart failure) I50.43 Heart failure type: combined systolic and diastolic Heart failure chronicity: acute on chronic Pulmonary hypertension I27.20 Aortic stenosis I35.0 Cardiac valve disease etiology: nonrheumatic Acute kidney injury superimposed on chronic kidney disease N17.9; N18.9 Shingles outbreak B02.9 Herpes zoster complications: without complications Mass of left cardiac ventricle I51.89 Low blood pressure I95.2 Hypotension type: hypotension due to drug UTI (urinary tract infection) N39.0 Left renal mass N28.89 Aspiration pneumonia J69.0 Hemoptysis R04.2 Acute gout M10.9 Atrial fibrillation with RVR I48.91 Anemia D64.9
[2021-01-13] MEDS: atorvastatin 40 mg Tablet PO (20:52)
[2021-01-14] VITALS (10 sets, daily range): BP systolic 110–134; BP diastolic 48–83; PULSE 81–104; RESP 16–26; TEMP 36.3–36.8; O2SAT 90–97
[2021-01-14] MEDS: dilTIAZem 30 mg Tablet 60 MG PO ×4 (03:43→20:39)
[2021-01-14 05:11] LABS: Alanine Aminotransferase 11 U/L (0-33); Albumin Level 2.9 g/dL (3.5-5.2); Alkaline Phosphatase 70 IU/L (35-105); Anion Gap 15.3 (5-19); Aspartate Amino Transferase 17 U/L (0-32); Calcium 8.1 mg/dL (8.5-10.5); Carbon Dioxide 33 mmol/L (22-29); Chloride 92 mmol/L (98-107); Globulin 2.5 g/dL (1.3-4.6); Glucose 116 mg/dL (65-115); Magnesium 2.1 mg/dL (1.7-2.3); Osmolality Calculated 318 mOsm/kg (285-295); Phosphorus 3.4 mg/dL (2.5-4.5); Potassium 3.3 mmol/L (3.5-5.1); Sodium 137 mmol/L (136-145); Total Protein 5.4 g/dL (6.6-8.7)
[2021-01-14 05:18] LABS: Basophils % 0.1 %; Eosinophils # 0.2 10^3/uL (0.0-0.8); Eosinophils % 1.2 %; Hematocrit 26.9 % (37.0-47.0); Hemoglobin 8.1 g/dL (11.5-15.3); Lymphocytes # 0.8 10^3/uL (0.8-4.8); Lymphocytes % 5.4 %; Mean Corpuscular HGB Conc 30.1 g/dL (30.0-36.0); Mean Corpuscular Hemoglobin 24.5 pg (28.0-34.0); Mean Corpuscular Volume 81.5 fL (81-99); Mean Platelet Volume 10.9 fL (7.4-10.4); Monocytes # 1.7 10^3/uL (0.2-0.9); Monocytes % 11.7 %; Neutrophils # 11.96 10^3/uL (1.8-7.7); Neutrophils % 81.1 %; Nucleated Red Blood Cells % 0 %; Platelet Count 152 10^3/cmm (130-400); Red Cell Distribution Width 21.8 % (12.1-15.1); White Blood Count 14.7 10^3/uL (4.0-10.0)
[2021-01-14 05:20] LABS: Blood Urea Nitrogen 104 mg/dL (8-23)
--- NOTE | 2021-01-14 06:25 | PC.NURSE ---
NURSE NOTE: REPORT GIVEN TO ALANNAH ON MED SURGE AT THIS TIME. PT TRANSPORTED TO ROOM 263 PER ARISTEO VALENZUELA PER W/C AT THIS TIME. NO DISTRESS AT TIME OF TRANSFER. ALL VS AND ASSESSMENTS CHARTED.
[2021-01-14 07:29] LABS: Glucose Point of Care 112 mg/dL (70-110)
[2021-01-14] MEDS: pantoprazole DR 40 mg Tablet PO (08:56)
[2021-01-14] MEDS: midodrine 5 mg TABLET 10 MG PO ×3 (08:56→20:39)
[2021-01-14] MEDS: FUROsemide 10 mg/mL SDV 4mL 40 MG IVP (08:58)
[2021-01-14] MEDS: sennosides-docusate Tablet 1 TAB PO (08:58)
[2021-01-14] MEDS: predniSONE 10 mg Tablet PO (08:58)
[2021-01-14] MEDS: metOLazone 5 MG Tablet PO (08:58)
[2021-01-14] MEDS: ferric gluconate 125 MG in sodium chloride 0.9% (100 ml) 100 ML 110 MG IV (08:59)
--- NOTE | 2021-01-14 12:04 | PM.PN ---
Subjective Subjective: Interval history: Making more urine and hemodynamics more robust. Feels ok. No uremic Sx. Eating and drinking normally. Edema present but a little better and she is breathing comfortably on room air. Mobilizing on the wall. Medications: Reviewed: Yes Medication Review Details: Current Medications Acetaminophen (Acetaminophen 325 Mg Tablet) 325 mg PO QID PRN PRN Reason: FEVER Acyclovir (Acyclovir 400 Mg Tablet) 1,000 mg PO Q24H [facility] Last Admin: 01/12/21 14:03 Dose: 1,000 mg Documented by: Aspirin (Aspirin 81 Mg Ec Tablet) 81 mg PO DAILY [facility] Last Admin: 01/13/21 08:09 Dose: 81 mg Documented by: Atorvastatin Calcium (Atorvastatin 40 Mg Tablet) 40 mg PO BEDTIME [facility] Last Admin: 01/12/21 20:57 Dose: 40 mg Documented by: Diltiazem HCl (Diltiazem 30 Mg Tablet) 60 mg PO Q6H [facility] Last Admin: 01/13/21 03:58 Dose: 60 mg Documented by: Furosemide (Furosemide 10 Mg/Ml Sdv 4ml) 40 mg IVP Q12H [facility] Last Admin: 01/13/21 08:04 Dose: 40 mg Documented by: Heparin Sodium (Beef Lung) (Heparin 5,000 Unit/Ml Inj 1 Ml) 5,000 unit SUBCUT Q12H [facility] Last Admin: 01/11/21 22:02 Dose: Not Given Documented by: Dopamine HCl/Dextrose (Intropin Drip) 400 mg in 250 mls @ 5.069 mls/hr IV CONT [facility]; Protocol Last Admin: 01/12/21 17:09 Dose: 2 mcg/kg/min, 5.1 mls/hr Documented by: Metolazone (Metolazone 5 Mg Tablet) 5 mg PO DAILY [facility] Last Admin: 01/13/21 08:09 Dose: 5 mg Documented by: Midodrine (Midodrine 5 Mg Tablet) 10 mg PO TID [facility] Last Admin: 01/13/21 08:09 Dose: 10 mg Documented by: Morphine Sulfate (Morphine Ir 15 Mg Tablet) 15 mg PO Q8H PRN PRN Reason: foot pain Ondansetron HCl (Ondansetron 2 Mg/Ml Sdv 2 Ml) 4 mg IVP Q6H PRN PRN Reason: NAUSEA AND VOMITING Last Admin: 01/08/21 23:19 Dose: 4 mg Documented by: Pantoprazole Sodium (Pantoprazole Dr 40 Mg Tablet) 40 mg PO DAILY [facility] Last Admin: 01/13/21 08:09 Dose: 40 mg Documented by: Prednisone (Prednisone 10 Mg Tablet) 10 mg PO DAILY [facility] Stop: 01/14/21 10:00 Last Admin: 01/13/21 08:09 Dose: 10 mg Documented by: Senna/Docusate Sodium (Sennosides-Docusate Tablet) 1 tab PO DAILY [facility] Last Admin: 01/13/21 08:10 Dose: 1 tab Documented by: Sevelamer Carbonate (Sevelamer 800 Mg Tablet) 800 mg PO TIDWM [facility] Last Admin: 01/13/21 08:04 Dose: 800 mg Documented by: Vitals/I&O/Wt Last Vital Signs Temp 98.0 F 01/14/21 11:44 Pulse 91 01/14/21 11:44 Resp 17 01/14/21 11:44 BP 134/83 01/14/21 11:44 Pulse Ox 94 01/14/21 11:44 01/13/21 01/14/21 01/14/21 22:59 06:59 14:59 Intake Total 360 / 790.635 110 / 110 Output Total 1700 / 1700 Balance -1340 / -909.365 110 / 110 Weight last 48 hrs Weight 70.352 kg Weight 68.039 kg Weight 68.039 kg Physical Exam Narrative: EXAM NARRATIVE: Constitutional: Awake, comfortable HEENT: Wet mucosa, no jvp, non icteric Lungs: Bilaterally clear without discernible wheeze, rales in all lung zones CVS: S1 S2, no murmurs Abdo: Soft, BS ok Ext 4: 1-2+ edema, peripheral perfusion with no cyanosis Neurological: Grossly non-focal Urinary Catheter Management^: Escobar: Cath Placed During This Visit: yes Reason for Continuing Indwelling Catheter: Acute Urinary Retention or Obstruction Urinary Catheter Date of Insertion: 01/07/21 Urinary Catheter Time of Insertion: 09:46 Data : 01/14/21 04:05 01/14/21 04:05 A&P Additional A&P Information 1. Acute renal failure Creatinine stable and urine output is now improving Cont Rodrigo will switch to po No dialysis as she is now diuresing Renal imaging noted, large indeterminate cyst seen in the left kidney; I agree without patient follow up 2. A. fib with RVR and hemodynamics Currently on combination therapy with metoprolol, diltiazem, defer management to medical team. Midodrine 10mg po tid to help support pressure > hopefully I can bring this off over the weekend 3. Chemistry K replacement ordered Thank you for consultation, as always it is a pleasure to follow these cases with you Tapan Bell MD Nephrology [phone] Patient seen and examined via telemedicine, with the assistance of the bedside RN > 25 min spent in evaluation and mgmt of patient Attestations Medical Necessity Statement*: eval for renal failure Coding Level of Care Code Acute Information Security Director for Gaby Curry
[2021-01-14] MEDS: acyclovir 400 mg Tablet 1000 MG PO (12:41)
[2021-01-14] MEDS: potassium chloride ER 20 mEq Tablet 40 MEQ PO (12:42)
[2021-01-14] MEDS: sevelamer 800 mg Tablet PO (17:24)
[2021-01-14] MEDS: FUROsemide 40 mg Tablet 80 MG PO (17:24)
[2021-01-14] MEDS: docusate sodium 100 mg Capsule PO (17:25)
[2021-01-14] MEDS: atorvastatin 40 mg Tablet PO (20:39)
--- NOTE | 2021-01-14 21:27 | P.PN_ITS ---
Subjective Subjective: Interval history: Urine output increased and creatinine decreased some with transition to intermittent diuresis. The patient and Dr. Coy discussed the case and decision currently made to hold off on determination to initiate dialysis. Patient has been more tired today, sleeping a couple of times when I going to see her however had several visitors this morning. No new complaints. Vitals/I&O/Wt Last Vital Signs Temp 97.6 F 01/14/21 19:45 Pulse 94 01/14/21 19:45 Resp 19 H 01/14/21 19:45 BP 124/59 01/14/21 19:45 Pulse Ox 94 01/14/21 19:45 01/14/21 01/14/21 01/14/21 06:59 14:59 22:59 Intake Total 110 / 110 120 / 230 Output Total 375 / 375 525 / 900 Balance -265 / -265 -405 / -670 Weight last 48 hrs Weight 70.352 kg Weight 68.039 kg Weight 68.039 kg Physical Exam Narrative: EXAM NARRATIVE: Sleepy, arousable, not as tender to palpation today. Edema is decreased a bit. Lungs with improved aeration presently. Irregular rhythm. Abdomen is soft. Escobar catheter is intact. Both arms again are a little bit less edematous than they had been. No change to extremity bruising. Toe is not near as red nor tender as it had been. Urinary Catheter Management^: Escobar: Cath Placed During This Visit: yes Reason for Continuing Indwelling Catheter: Acute Urinary Retention or Obstruction Urinary Catheter Date of Insertion: 01/07/21 Urinary Catheter Time of Insertion: 09:46 Data : 01/14/21 04:05 01/14/21 04:05 Micro: Microbiology 01/09/21 16:35 Blood Culture - Final Blood NO GROWTH AFTER 5 DAYS A&P Assessment and plan (1) CHF (congestive heart failure): Status: Chronic Qualifiers: Heart failure type: combined systolic and diastolic Heart failure chronicity: acute on chronic Qualified Code(s): I50.43 - Acute on chronic combined systolic (congestive) and diastolic (congestive) heart failure (2) Pulmonary hypertension: Status: Chronic (3) Aortic stenosis: Status: Chronic Qualifiers: Cardiac valve disease etiology: nonrheumatic Qualified Code(s): I35.0 - Nonrheumatic aortic (valve) stenosis (4) Acute kidney injury superimposed on chronic kidney disease: Acute renal failure Status: Acute (5) Shingles outbreak: Status: Acute Qualifiers: Herpes zoster complications: without complications Qualified Code(s): B02.9 - Zoster without complications (6) Mass of left cardiac ventricle: Status: Acute (7) Low blood pressure: Currently on midodrine; dopamine stopped morning of 01/13 Status: Acute Qualifiers: Hypotension type: hypotension due to drug Qualified Code(s): I95.2 - Hypotension due to drugs (8) UTI (urinary tract infection): Urine culture no growth final Status: Acute (9) Left renal mass: Will need outpatient follow-up Status: Acute (10) Aspiration pneumonia: Status post treatment Status: Acute (11) Hemoptysis: Has recurred; unclear description or severity Status: Acute (12) Acute gout: Improving Status: Acute (13) Atrial fibrillation with RVR: Status: Acute (14) Anemia: Further drop noted today Status: Acute Additional A&P Information Decision to initiate hemodialysis is currently on hold Diet was initiated Continue close monitoring of urine output and renal function Lasix being changed to oral On metolazone Careful replacement of potassium Hope is to be able to decrease midodrine this weekend Off of dopamine since 01/13 early in the morning Not currently on any anticoagulation secondary 2 episodes of hemoptysis and drop in H&H; aspirin had been held in anticipation of possible procedure but will resume Has been type and screen in case needs transfusion Hemoccult has been sent out Steroid therapy for gout finished today Transition to long-acting Cardizem Primaxin stopped on 01/10 On acyclovir orally for shingles Monitor for evidence of developing infection Remains off of home lisinopril secondary to renal function and hypotension Patient intolerant of SCDs secondary to pain although they are ordered and has had hemoptysis with a drop in hemoglobin so not currently on any pharmacological DVT prophylaxis On PPI On pain medications Will need outpatient follow up for renal mass Supportive care otherwise Current plan is for patient to go home although family dynamics and living situation make that a concern Full code Attestations Medical Necessity Statement*: Requires ongoing inpatient stay for continued management of issues as noted above. Starting to get transition to more oral medications but remains at high risk of worsening. Little reserve. Coding Level of Care Code Acute Punchboard Assembler for Gaby Curry Diagnoses CHF (congestive heart failure) I50.43 Heart failure type: combined systolic and diastolic Heart failure chronicity: acute on chronic Pulmonary hypertension I27.20 Aortic stenosis I35.0 Cardiac valve disease etiology: nonrheumatic Acute kidney injury superimposed on chronic kidney disease N17.9; N18.9 Shingles outbreak B02.9 Herpes zoster complications: without complications Mass of left cardiac ventricle I51.89 Low blood pressure I95.2 Hypotension type: hypotension due to drug UTI (urinary tract infection) N39.0 Left renal mass N28.89 Aspiration pneumonia J69.0 Hemoptysis R04.2 Acute gout M10.9 Atrial fibrillation with RVR I48.91 Anemia D64.9
[2021-01-15] VITALS (9 sets, daily range): BP systolic 113–134; BP diastolic 63–87; PULSE 69–113; RESP 16–18; TEMP 36.3–36.7; O2SAT 90–97
[2021-01-15] MEDS: dilTIAZem 30 mg Tablet 60 MG PO (04:34)
[2021-01-15 06:32] LABS: Basophils % 0.1 %; Eosinophils # 0.2 10^3/uL (0.0-0.8); Eosinophils % 1.3 %; Hematocrit 28.5 % (37.0-47.0); Hemoglobin 8.4 g/dL (11.5-15.3); Lymphocytes # 0.8 10^3/uL (0.8-4.8); Lymphocytes % 5.2 %; Mean Corpuscular HGB Conc 29.5 g/dL (30.0-36.0); Mean Corpuscular Hemoglobin 24.7 pg (28.0-34.0); Mean Corpuscular Volume 83.8 fL (81-99); Mean Platelet Volume 10.2 fL (7.4-10.4); Monocytes # 1.8 10^3/uL (0.2-0.9); Monocytes % 11.6 %; Neutrophils # 12.86 10^3/uL (1.8-7.7); Neutrophils % 81.3 %; Nucleated Red Blood Cells % 0 %; Platelet Count 146 10^3/cmm (130-400); Red Cell Distribution Width 22.3 % (12.1-15.1); White Blood Count 15.8 10^3/uL (4.0-10.0)
[2021-01-15 06:51] LABS: Anion Gap 13.5 (5-19); Calcium 8.3 mg/dL (8.5-10.5); Carbon Dioxide 37 mmol/L (22-29); Chloride 93 mmol/L (98-107); Glucose 95 mg/dL (65-115); Osmolality Calculated 320 mOsm/kg (285-295); Phosphorus 3.1 mg/dL (2.5-4.5); Potassium 3.5 mmol/L (3.5-5.1); Sodium 140 mmol/L (136-145)
[2021-01-15 07:34] LABS: Blood Urea Nitrogen 98 mg/dL (8-23)
[2021-01-15] MEDS: dilTIAZem ER (24HR) 240 mg Capsule PO (09:03)
[2021-01-15] MEDS: FUROsemide 40 mg Tablet 80 MG PO ×2 (09:03→17:14)
[2021-01-15] MEDS: ferric gluconate 125 MG in sodium chloride 0.9% (100 ml) 100 ML 110 MG IV (09:04)
[2021-01-15] MEDS: metOLazone 5 MG Tablet PO (09:04)
[2021-01-15] MEDS: pantoprazole DR 40 mg Tablet PO (09:04)
[2021-01-15] MEDS: sennosides-docusate Tablet 1 TAB PO (09:04)
[2021-01-15] MEDS: potassium chloride ER 20 mEq Tablet 40 MEQ PO (09:04)
[2021-01-15] MEDS: midodrine 5 mg TABLET 10 MG PO (09:04)
[2021-01-15] MEDS: docusate sodium 100 mg Capsule PO ×2 (09:04→17:14)
--- NOTE | 2021-01-15 10:06 | PM.PN ---
Subjective Subjective: Interval history: She continues to do well with good urine output. She still has significant lower extremity edema, no dyspnea at rest or on exertion. Making a good volume of urine now. Hemodynamics remained stable. No uremic symptoms. Medications: Reviewed: Yes Medication Review Details: Current Medications Acetaminophen (Acetaminophen 325 Mg Tablet) 325 mg PO QID PRN PRN Reason: FEVER Acyclovir (Acyclovir 400 Mg Tablet) 1,000 mg PO Q24H [facility] Last Admin: 01/12/21 14:03 Dose: 1,000 mg Documented by: Aspirin (Aspirin 81 Mg Ec Tablet) 81 mg PO DAILY [facility] Last Admin: 01/13/21 08:09 Dose: 81 mg Documented by: Atorvastatin Calcium (Atorvastatin 40 Mg Tablet) 40 mg PO BEDTIME [facility] Last Admin: 01/12/21 20:57 Dose: 40 mg Documented by: Diltiazem HCl (Diltiazem 30 Mg Tablet) 60 mg PO Q6H [facility] Last Admin: 01/13/21 03:58 Dose: 60 mg Documented by: Furosemide (Furosemide 10 Mg/Ml Sdv 4ml) 40 mg IVP Q12H [facility] Last Admin: 01/13/21 08:04 Dose: 40 mg Documented by: Heparin Sodium (Beef Lung) (Heparin 5,000 Unit/Ml Inj 1 Ml) 5,000 unit SUBCUT Q12H [facility] Last Admin: 01/11/21 22:02 Dose: Not Given Documented by: Dopamine HCl/Dextrose (Intropin Drip) 400 mg in 250 mls @ 5.069 mls/hr IV CONT [facility]; Protocol Last Admin: 01/12/21 17:09 Dose: 2 mcg/kg/min, 5.1 mls/hr Documented by: Metolazone (Metolazone 5 Mg Tablet) 5 mg PO DAILY [facility] Last Admin: 01/13/21 08:09 Dose: 5 mg Documented by: Midodrine (Midodrine 5 Mg Tablet) 10 mg PO TID [facility] Last Admin: 01/13/21 08:09 Dose: 10 mg Documented by: Morphine Sulfate (Morphine Ir 15 Mg Tablet) 15 mg PO Q8H PRN PRN Reason: foot pain Ondansetron HCl (Ondansetron 2 Mg/Ml Sdv 2 Ml) 4 mg IVP Q6H PRN PRN Reason: NAUSEA AND VOMITING Last Admin: 04/10/21 23:19 Dose: 4 mg Documented by: Pantoprazole Sodium (Pantoprazole Dr 40 Mg Tablet) 40 mg PO DAILY [facility] Last Admin: 01/13/21 08:09 Dose: 40 mg Documented by: Prednisone (Prednisone 10 Mg Tablet) 10 mg PO DAILY [facility] Stop: 01/14/21 10:00 Last Admin: 01/13/21 08:09 Dose: 10 mg Documented by: Senna/Docusate Sodium (Sennosides-Docusate Tablet) 1 tab PO DAILY [facility] Last Admin: 01/13/21 08:10 Dose: 1 tab Documented by: Sevelamer Carbonate (Sevelamer 800 Mg Tablet) 800 mg PO TIDWM [facility] Last Admin: 01/13/21 08:04 Dose: 800 mg Documented by: Vitals/I&O/Wt Last Vital Signs Temp 97.7 F 01/15/21 08:00 Pulse 95 01/15/21 08:00 Resp 17 01/15/21 08:00 BP 124/79 01/15/21 08:00 Pulse Ox 93 01/15/21 08:00 01/14/21 01/15/21 01/15/21 22:59 06:59 14:59 Intake Total 120 / 230 240 / 240 Output Total 525 / 900 1150 / 2050 250 / 250 Balance -405 / -670 -1150 / -1820 -10 / -10 Weight last 48 hrs Weight 70.307 kg Weight 70.352 kg Physical Exam Narrative: EXAM NARRATIVE: Constitutional: Awake, comfortable HEENT: Wet mucosa, no jvp, non icteric Lungs: Bilaterally clear without discernible wheeze, rales in all lung zones CVS: S1 S2, no murmurs Abdo: Soft, BS ok Ext 4: 1-2+ edema, peripheral perfusion with no cyanosis Neurological: Grossly non-focal Urinary Catheter Management^: Escobar: Cath Placed During This Visit: yes Reason for Continuing Indwelling Catheter: Acute Urinary Retention or Obstruction Urinary Catheter Date of Insertion: 01/07/21 Urinary Catheter Time of Insertion: 09:46 Data : 01/15/21 06:24 01/15/21 06:24 Micro: Microbiology 01/10/21 08:48 Blood Culture - Final Blood NO GROWTH AFTER 5 DAYS 01/09/21 16:35 Blood Culture - Final Blood NO GROWTH AFTER 5 DAYS A&P Additional A&P Information 1. Acute renal failure Creatinine stable and urine output is now improving Cont oral diuretics No dialysis as she is now diuresing Renal imaging noted, large indeterminate cyst seen in the left kidney; I agree without patient follow up 2. A. fib with RVR and hemodynamics Currently on combination therapy with metoprolol, diltiazem, defer management to medical team. DC midodrine 3. Chemistry Well balanced Will be ok for DC on Sunday from my perspective if she continues to make progress like this Thank you for consultation, as always it is a pleasure to follow these cases with you Tapan Bell MD Nephrology [phone] Patient seen and examined via telemedicine, with the assistance of the bedside RN > 25 min spent in evaluation and mgmt of patient Attestations Medical Necessity Statement*: eval for renal failure Coding Level of Care Code Acute Store Receiving Clerk for Gaby Curry
[2021-01-15] MEDS: acyclovir 400 mg Tablet 1000 MG PO (12:41)
--- NOTE | 2021-01-15 13:41 | PC.SOCIAL ---
IMM* Updated patient and initialled IMM in chart.
[2021-01-15] MEDS: sevelamer 800 mg Tablet PO (17:15)
--- NOTE | 2021-01-15 19:45 | P.PN_ITS ---
Subjective Subjective: Interval history: Patient feeling much better today. Not as sleepy. Remains weak. Urine output is doing well and renal function is improved today. Negative greater than 9 L Vitals/I&O/Wt Last Vital Signs Temp 98.0 F 01/15/21 19:13 Pulse 113 H 01/15/21 19:13 Resp 17 01/15/21 19:13 BP 134/87 01/15/21 19:13 Pulse Ox 97 01/15/21 19:13 01/15/21 01/15/21 01/15/21 06:59 14:59 22:59 Intake Total 470 / 470 320 / 790 Output Total 1150 / 2050 250 / 250 1275 / 1525 Balance -1150 / -1820 220 / 220 -955 / -735 Weight last 48 hrs Weight 70.307 kg Weight 70.352 kg Physical Exam Narrative: EXAM NARRATIVE: Awake and alert, off smile is symmetric, lungs are clear, irregular rhythm, abdomen is soft. Legs remain tender to palpation with decreasing edema as do arms. Urinary Catheter Management^: Escobar: Cath Placed During This Visit: yes Reason for Continuing Indwelling Catheter: Other Urinary Catheter Date of Insertion: 01/07/21 Urinary Catheter Time of Insertion: 09:46 Data : 01/15/21 06:24 01/15/21 06:24 Micro: Microbiology 01/10/21 08:48 Blood Culture - Final Blood NO GROWTH AFTER 5 DAYS 01/09/21 16:35 Blood Culture - Final Blood NO GROWTH AFTER 5 DAYS A&P Assessment and plan (1) CHF (congestive heart failure): Status: Chronic Qualifiers: Heart failure type: combined systolic and diastolic Heart failure chronicity: acute on chronic Qualified Code(s): I50.43 - Acute on chronic combined systolic (congestive) and diastolic (congestive) heart failure (2) Pulmonary hypertension: Status: Chronic (3) Aortic stenosis: Status: Chronic Qualifiers: Cardiac valve disease etiology: nonrheumatic Qualified Code(s): I35.0 - Nonrheumatic aortic (valve) stenosis (4) Acute kidney injury superimposed on chronic kidney disease: Acute renal failure Status: Acute (5) Shingles outbreak: Status: Acute Qualifiers: Herpes zoster complications: without complications Qualified Code(s): B02.9 - Zoster without complications (6) Mass of left cardiac ventricle: Status: Acute (7) Low blood pressure: Currently on midodrine; dopamine stopped morning of 01/13 Status: Acute Qualifiers: Hypotension type: hypotension due to drug Qualified Code(s): I95.2 - Hypotension due to drugs (8) UTI (urinary tract infection): Urine culture no growth final Status: Acute (9) Left renal mass: Will need outpatient follow-up Status: Acute (10) Aspiration pneumonia: Status post treatment Status: Acute (11) Hemoptysis: Has recurred; unclear description or severity Status: Acute (12) Acute gout: Improving Status: Acute (13) Atrial fibrillation with RVR: Status: Acute (14) Anemia: Trending upward with improved diuresis Status: Acute Additional A&P Information Continue current management with oral diuretics, monitoring urine output and renal function Appreciate nephrology assistance Midodrine stopped today If continues to do well will discontinue Escobar catheter tomorrow Off of dopamine since 01/13 early in the morning Off of Lasix drip since 01/14 On Renvela Not currently on any anticoagulation secondary 2 episodes of hemoptysis and drop in H&H On aspirin Hemoccult has been sent out Steroid therapy for gout completed on 01/14 On long acting Cardizem Off of home metoprolol Remains off of home lisinopril secondary to renal function and hypotension Primaxin stopped on 01/10 On acyclovir orally for shingles Monitor for evidence of developing infection On PPI On pain medications Will need outpatient follow up for renal mass Supportive care otherwise Patient intolerant of SCDs secondary to pain although they are ordered and has had hemoptysis with a drop in hemoglobin so not currently on any pharmacological DVT prophylaxis Current plan is for patient to go home; she does not want to consider alternative options Full code Attestations Medical Necessity Statement*: Requires ongoing management of diuresis and other medication management as described Coding Level of Care Code Acute Service Or Work Dispatcher Chief for g Fwd Diagnoses CHF (congestive heart failure) I50.43 Heart failure type: combined systolic and diastolic Heart failure chronicity: acute on chronic Pulmonary hypertension I27.20 Aortic stenosis I35.0 Cardiac valve disease etiology: nonrheumatic Acute kidney injury superimposed on chronic kidney disease N17.9; N18.9 Shingles outbreak B02.9 Herpes zoster complications: without complications Mass of left cardiac ventricle I51.89 Low blood pressure I95.2 Hypotension type: hypotension due to drug UTI (urinary tract infection) N39.0 Left renal mass N28.89 Aspiration pneumonia J69.0 Hemoptysis R04.2 Acute gout M10.9 Atrial fibrillation with RVR I48.91 Anemia D64.9
[2021-01-15] MEDS: atorvastatin 40 mg Tablet PO (20:49)
[2021-01-16] VITALS (8 sets, daily range): BP systolic 106–120; BP diastolic 71–77; PULSE 100–135; RESP 17–18; TEMP 36.7–37.2; O2SAT 92–96
[2021-01-16 06:07] LABS: Basophils % 0.1 %; Eosinophils # 0.5 10^3/uL (0.0-0.8); Eosinophils % 3.8 %; Hematocrit 28.9 % (37.0-47.0); Hemoglobin 8.3 g/dL (11.5-15.3); Lymphocytes # 0.7 10^3/uL (0.8-4.8); Lymphocytes % 5.4 %; Mean Corpuscular HGB Conc 28.7 g/dL (30.0-36.0); Mean Corpuscular Hemoglobin 24.3 pg (28.0-34.0); Mean Corpuscular Volume 84.8 fL (81-99); Mean Platelet Volume 10.5 fL (7.4-10.4); Monocytes # 1.6 10^3/uL (0.2-0.9); Monocytes % 12.9 %; Neutrophils # 9.79 10^3/uL (1.8-7.7); Neutrophils % 77.2 %; Nucleated Red Blood Cells % 0 %; Platelet Count 149 10^3/cmm (130-400); Red Blood Count 3.41 10^6/uL (4.1-5.3); Red Cell Distribution Width 21.8 % (12.1-15.1); White Blood Count 12.7 10^3/uL (4.0-10.0)
[2021-01-16 06:28] LABS: Anion Gap 11.5 (5-19); Calcium 8.4 mg/dL (8.5-10.5); Chloride 90 mmol/L (98-107); Glucose 88 mg/dL (65-115); Osmolality Calculated 317 mOsm/kg (285-295); Potassium 3.5 mmol/L (3.5-5.1); Sodium 140 mmol/L (136-145)
[2021-01-16 06:32] LABS: Carbon Dioxide 42 mmol/L (22-29)
[2021-01-16 06:33] LABS: Blood Urea Nitrogen 90 mg/dL (8-23)
[2021-01-16] MEDS: pantoprazole DR 40 mg Tablet PO (09:39)
[2021-01-16] MEDS: potassium chloride ER 20 mEq Tablet 40 MEQ PO (09:39)
[2021-01-16] MEDS: sennosides-docusate Tablet 1 TAB PO (09:39)
[2021-01-16] MEDS: docusate sodium 100 mg Capsule PO ×2 (09:39→17:23)
[2021-01-16] MEDS: FUROsemide 40 mg Tablet 80 MG PO ×2 (09:39→17:23)
[2021-01-16] MEDS: dilTIAZem ER (24HR) 240 mg Capsule PO (09:40)
[2021-01-16] MEDS: metOLazone 5 MG Tablet PO (09:40)
[2021-01-16] MEDS: ferric gluconate 125 MG in sodium chloride 0.9% (100 ml) 100 ML 110 MG IV (10:48)
--- NOTE | 2021-01-16 10:57 | PC.CHAP ---
Pastoral Care Encounter/Spiritual Assessment Type of Contact [] Declined audio engineer visit [] Patient/Family/Request visit [] Outpatient visit [] Follow-up visit [] Physician referral [] Code/Alert [x] Routine visit [] Staff referral [] Actively dying [] Patient sleeping [] Family support [] [] Out of room [] Palliative care [] [] Receiving care in room [] Pre-surgical visit [] Trauma [] Long length of stay [] ICU visit [] Other: Relational/Emotional Strength [] Patient feels connected with others/family/visitors/staff [] Distress [] Loneliness/isolation [] Abandonment Spirituality of Patient [] Person of Jalyn [] Attends Methodist of their Jalyn [] Believes in Prayer [] Reads Bible or Islam materials [] There are Spiritual issues to be addressed Tar Roofer Interventions [] Prayer [x] Active listening [x] Non-anxious presence [x] Spiritual/emotional support [] Crisis/trauma care [] Spiritual counseling [] Bereavement support [] Provided bereavement packet [] Provided Bible/devotional materials [] Provided toy/stuffed animal, coloring book to patient or family member [] Provided Communion [] Anointing/Lasara [] Salvation [] Completed spiritual assessment [] Other: Impact on Illness or Injury [] Angry [] Fearful [] Anxious [] Often cries [] Exhaustion [] Unable to work [] Unable to attend roman catholic [] Unable to walk/stand [] Unable to read [] Unable to drive [] Unable to eat/drink [] Unable to sleep [] Unable to be with family [] Patient intubated [] Other: Summary PT staff was in room upon audio engineer's arrival and assisting her to move. She became dizzy after only a few feet and had to sit down. Due to circumstances, audio engineer was not able to complete visit. Time spent with patient 5<
--- NOTE | 2021-01-16 11:10 | PM.PN ---
Subjective Subjective: Interval history: She continues to do well with good urine output. She still has significant lower extremity edema but it is significantly improved. No dyspnea at rest or on exertion. Making a good volume of urine now. Hemodynamics remained stable. No uremic symptoms. Medications: Reviewed: Yes Medication Review Details: Current Medications Acetaminophen (Acetaminophen 325 Mg Tablet) 325 mg PO QID PRN PRN Reason: FEVER Acyclovir (Acyclovir 400 Mg Tablet) 1,000 mg PO Q24H [facility] Last Admin: 01/12/21 14:03 Dose: 1,000 mg Documented by: Aspirin (Aspirin 81 Mg Ec Tablet) 81 mg PO DAILY [facility] Last Admin: 01/13/21 08:09 Dose: 81 mg Documented by: Atorvastatin Calcium (Atorvastatin 40 Mg Tablet) 40 mg PO BEDTIME [facility] Last Admin: 01/12/21 20:57 Dose: 40 mg Documented by: Diltiazem HCl (Diltiazem 30 Mg Tablet) 60 mg PO Q6H [facility] Last Admin: 01/13/21 03:58 Dose: 60 mg Documented by: Furosemide (Furosemide 10 Mg/Ml Sdv 4ml) 40 mg IVP Q12H [facility] Last Admin: 01/13/21 08:04 Dose: 40 mg Documented by: Heparin Sodium (Beef Lung) (Heparin 5,000 Unit/Ml Inj 1 Ml) 5,000 unit SUBCUT Q12H [facility] Last Admin: 01/11/21 22:02 Dose: Not Given Documented by: Dopamine HCl/Dextrose (Intropin Drip) 400 mg in 250 mls @ 5.069 mls/hr IV CONT [facility]; Protocol Last Admin: 01/12/21 17:09 Dose: 2 mcg/kg/min, 5.1 mls/hr Documented by: Metolazone (Metolazone 5 Mg Tablet) 5 mg PO DAILY [facility] Last Admin: 01/13/21 08:09 Dose: 5 mg Documented by: Midodrine (Midodrine 5 Mg Tablet) 10 mg PO TID [facility] Last Admin: 01/13/21 08:09 Dose: 10 mg Documented by: Morphine Sulfate (Morphine Ir 15 Mg Tablet) 15 mg PO Q8H PRN PRN Reason: foot pain Ondansetron HCl (Ondansetron 2 Mg/Ml Sdv 2 Ml) 4 mg IVP Q6H PRN PRN Reason: NAUSEA AND VOMITING Last Admin: 01/08/21 23:19 Dose: 4 mg Documented by: Pantoprazole Sodium (Pantoprazole Dr 40 Mg Tablet) 40 mg PO DAILY [facility] Last Admin: 01/13/21 08:09 Dose: 40 mg Documented by: Prednisone (Prednisone 10 Mg Tablet) 10 mg PO DAILY [facility] Stop: 01/14/21 10:00 Last Admin: 01/13/21 08:09 Dose: 10 mg Documented by: Senna/Docusate Sodium (Sennosides-Docusate Tablet) 1 tab PO DAILY [facility] Last Admin: 01/13/21 08:10 Dose: 1 tab Documented by: Sevelamer Carbonate (Sevelamer 800 Mg Tablet) 800 mg PO TIDWM [facility] Last Admin: 01/13/21 08:04 Dose: 800 mg Documented by: Vitals/I&O/Wt Last Vital Signs Temp 98.9 F 01/16/21 07:25 Pulse 108 H 01/16/21 07:25 Resp 18 01/16/21 07:25 BP 108/72 01/16/21 07:25 Pulse Ox 92 01/16/21 07:25 01/15/21 01/16/21 01/16/21 22:59 06:59 14:59 Intake Total 320 / 790 60 / 60 Output Total 1275 / 1525 1500 / 3025 Balance -955 / -735 -1500 / -2235 60 / 60 Weight last 48 hrs Weight 66.497 kg Weight 70.307 kg Physical Exam Narrative: EXAM NARRATIVE: Constitutional: Awake, comfortable HEENT: Wet mucosa, no jvp, non icteric Lungs: Bilaterally clear without discernible wheeze, rales in all lung zones CVS: S1 S2, no murmurs Abdo: Soft, BS ok Ext 4: 1-2+ edema, peripheral perfusion with no cyanosis Neurological: Grossly non-focal Urinary Catheter Management^: Escobar: Cath Placed During This Visit: yes Reason for Continuing Indwelling Catheter: Other Urinary Catheter Date of Insertion: 01/07/21 Urinary Catheter Time of Insertion: 09:46 Data : 01/16/21 05:54 01/16/21 05:54 Micro: Microbiology 01/10/21 08:48 Blood Culture - Final Blood NO GROWTH AFTER 5 DAYS A&P Additional A&P Information 1. Acute renal failure Creatinine stable and urine output is now improving Cont oral diuretics; will switch metolazone to diamox No dialysis as she is now diuresing Renal imaging noted, large indeterminate cyst seen in the left kidney; I agree without patient follow up 2. A. fib with RVR and hemodynamics Currently on combination therapy with metoprolol, diltiazem, defer management to medical team. DC midodrine 3. Chemistry Bicarb increasing reflective of intravascular contraction alkalosis; will switch metolazone for diamox Will be ok for DC from my perspective, will need close follow up with local Lunchroom Mother, Dr Mina Thank you for consultation, as always it is a pleasure to follow these cases with you Tapan Bell MD Nephrology [phone] Patient seen and examined via telemedicine, with the assistance of the bedside RN > 25 min spent in evaluation and mgmt of patient Attestations Medical Necessity Statement*: eval for renal failure Coding Level of Care Code Acute Print Line Operator for Gaby Curry
[2021-01-16] MEDS: acetaZOLAMIDE 250 mg Tablet PO (11:34)
[2021-01-16] MEDS: acyclovir 400 mg Tablet 1000 MG PO (12:14)
[2021-01-16] MEDS: sevelamer 800 mg Tablet PO (17:23)
[2021-01-16] MEDS: atorvastatin 40 mg Tablet PO (21:27)
--- NOTE | 2021-01-16 21:47 | P.PN_ITS ---
Subjective Subjective: Interval history: Patient complains of feeling weak and worn out but her breathing is better. I had a long talk with her about disposition plans. She is requiring quite a bit of assistance and cannot do more than a couple of feet and remained steady. She gets dizzy with these position changes as well as short of breath. She states that she wants to go home when she is able to stand on her own and walk a bit but I explained to her that that may not occur before such time as she is ready for discharge from the hospital from a medical treatment standpoint apart from rehabilitation. She understood that concept. She is not willing under any circumstance to consider placement for rehabilitation anywhere other than where she use used to staying. She is predominantly alone. There are a lot of social dynamics that stress her. We talked about options for some home health therapy. Explained that it would be difficult to get somebody to be with her [id number] but that we could certainly look into getting some assistance. Will think about what we talked about. She has started to become more tachycardic. She has been off of her metoprolol for a while. She was put on extended release diltiazem and does not appear to have tolerated that Vitals/I&O/Wt Last Vital Signs Temp 98.4 F 01/16/21 19:23 Pulse 135 H 01/16/21 19:23 Resp 17 01/16/21 19:23 BP 106/72 01/16/21 19:23 Pulse Ox 92 01/16/21 19:23 01/16/21 01/16/21 01/16/21 06:59 14:59 22:59 Intake Total 290 / 290 120 / 410 Output Total 1500 / 3025 725 / 725 Balance -1500 / -2235 -435 / -435 120 / -315 Cumulative fluid balance for hospital stay -42523.018 ml Weight last 48 hrs Weight 66.497 kg Weight 70.307 kg Physical Exam Narrative: EXAM NARRATIVE: Patient alert and oriented. Able to carry on a good conversation. She has a tachycardic but regular rhythm. Lungs are clear. No Rales or wheezes noted. Abdomen is soft, nontender. Legs remain puffy. Tender anywhere you touch them. I will note that during a time of day that I was checking on her when she was asleep, she did not move when I touched her legs during sleep. Skin on the lower extremities is drying out. Moves all e xtremities but generally weak. Both upper extremities also with decreased edema. Bruising both upper extremities at sites of blood draws. Urinary Catheter Management^: Escobar: Cath Placed During This Visit: yes Urinary Catheter Date of Insertion: 01/07/21 Urinary Catheter Time of Insertion: 09:46 Data : 01/16/21 05:54 01/16/21 05:54 A&P Assessment and plan (1) CHF (congestive heart failure): Status: Chronic Qualifiers: Heart failure type: combined systolic and diastolic Heart failure chronicity: acute on chronic Qualified Code(s): I50.43 - Acute on chronic combined systolic (congestive) and diastolic (congestive) heart failure (2) Pulmonary hypertension: Status: Chronic (3) Aortic stenosis: Status: Chronic Qualifiers: Cardiac valve disease etiology: nonrheumatic Qualified Code(s): I35.0 - Nonrheumatic aortic (valve) stenosis (4) Acute kidney injury superimposed on chronic kidney disease: Status: Acute (5) Shingles outbreak: Status: Acute Qualifiers: Herpes zoster complications: without complications Qualified Code(s): B02.9 - Zoster without complications (6) Mass of left cardiac ventricle: Status: Acute (7) Low blood pressure: Status: Resolved Qualifiers: Hypotension type: hypotension due to drug Qualified Code(s): I95.2 - Hypotension due to drugs (8) UTI (urinary tract infection): Urine culture no growth final Status: Ruled-out (9) Left renal mass: Will need outpatient follow-up Status: Acute (10) Aspiration pneumonia: Status post treatment Status: Acute (11) Hemoptysis: Has recurred; unclear description or severity Status: Acute (12) Acute gout: off of steorids Status: Resolved (13) Atrial fibrillation with RVR: recurrent Status: Acute (14) Anemia: stable Status: Acute Additional A&P Information Metolazone stopped and Diamox initiated today Nephrology following Continue current oral Lasix 80 twice daily Off of midodrine since 01/15 Off dopamine since 01/13 Off of Lasix drip since 01/14 Negative more than 12 L per whole hospital stay On Renvela Will change back to every 6 hour Cardizem and monitor response Remains off of home metoprolol, may consider initiation if heart rate does not improve Check EKG Continue to monitor volume status closely Hope to remove catheter in the next couple of days if blood pressure, heart rate and renal function stabilize Not currently on any anticoagulation secondary 2 episodes of hemoptysis and drop in H&H during the course of the hospital stay. Second episode occurred after resumption of anticoagulation from when it had previously been held due to hemoptysis. On Eliquis at home. Hemoptysis has not occurred when not on anticoagulation. Does not sound to be large-volume. On aspirin Hemoccult has been sent out several days ago and is still pending Received IV iron replacment Steroid therapy for gout completed on 01/14 Remains off of home lisinopril secondary to renal function and hypotension Primaxin stopped on 01/10 On PPI Stool softeners On pain medications PT/OT Will need outpatient follow up for renal mass Supportive care otherwise Patient intolerant of SCDs secondary to pain although they are ordered and has had hemoptysis with a drop in hemoglobin so not currently on any pharmacological DVT prophylaxis Current plan is for patient to go home; she does not want to consider alternative options; will need some type of home services Full code Attestations Medical Necessity Statement*: Requires ongoing inpatient stay for continued management as described above. She requires close monitoring and adjustments to medications and remains weak. Coding Level of Care Code Acute Cloth Handler for di Fwd Diagnoses CHF (congestive heart failure) I50.43 Heart failure type: combined systolic and diastolic Heart failure chronicity: acute on chronic Pulmonary hypertension I27.20 Aortic stenosis I35.0 Cardiac valve disease etiology: nonrheumatic Acute kidney injury superimposed on chronic kidney disease N17.9; N18.9 Shingles outbreak B02.9 Herpes zoster complications: without complications Mass of left cardiac ventricle I51.89 Low blood pressure I95.2 Hypotension type: hypotension due to drug UTI (urinary tract infection) N39.0 Left renal mass N28.89 Aspiration pneumonia J69.0 Hemoptysis R04.2 Acute gout M10.9 Atrial fibrillation with RVR I48.91 Anemia D64.9
[2021-01-17] VITALS (9 sets, daily range): BP systolic 96–133; BP diastolic 58–84; PULSE 86–127; RESP 16–18; TEMP 36.4–37; O2SAT 88–97
[2021-01-17 05:43] LABS: Basophils % 0.1 %; Eosinophils # 0.4 10^3/uL (0.0-0.8); Eosinophils % 2.4 %; Hemoglobin 8.6 g/dL (11.5-15.3); Lymphocytes # 0.7 10^3/uL (0.8-4.8); Lymphocytes % 4.8 %; Mean Corpuscular HGB Conc 29.7 g/dL (30.0-36.0); Mean Corpuscular Hemoglobin 24.9 pg (28.0-34.0); Mean Corpuscular Volume 84.1 fL (81-99); Mean Platelet Volume 10.9 fL (7.4-10.4); Monocytes # 1.8 10^3/uL (0.2-0.9); Neutrophils # 11.85 10^3/uL (1.8-7.7); Neutrophils % 80.2 %; Nucleated Red Blood Cells % 0 %; Platelet Count 177 10^3/cmm (130-400); Red Blood Count 3.45 10^6/uL (4.1-5.3); White Blood Count 14.8 10^3/uL (4.0-10.0)
--- NOTE | 2021-01-17 06:00 | ECG_ITS ---
[facility] ED Test Date: 2021-01-17 Pat Name: Janelle Riley Department: Room: 263 Gender: Female Virtual Recruiter: : 1935 Requested By: Renetta Degroot Order Number: [id number] Mera MD: Leigh Ann Morin M.D. Measurements Intervals [place] Rate: 121 P: NM: QRS: 254 QRSD: 125 T: 87 QT: 341 QTc: 485 Interpretive Statements ATRIAL FIBRILLATION WITH RAPID VENTRICULAR RESPONSE WITH ABERRANT CONDUCTION OR VENTRICULAR PREMATURE COMPLEXES MARKED RIGHT AXIS DEVIATION [QRS AXIS > 100] POSSIBLE ANTERIOR MYOCARDIAL INFARCTION, OF INDETERMINATE AGE Compared to ECG 01/06/2021 18:39:49 Ventricular premature complex(es) now present Aberrant conduction of supraventricular beat(s) now present Right-axis deviation now present Sinus tachycardia no longer present Myocardial infarct finding still present Electronically Signed On 01-18-2021 12:38:00 CDT by Leigh Ann Morin M.D. [id number]
[2021-01-17 06:12] LABS: Anion Gap 13.5 (5-19); Blood Urea Nitrogen 77 mg/dL (8-23); Calcium 8.4 mg/dL (8.5-10.5); Carbon Dioxide 40 mmol/L (22-29); Chloride 88 mmol/L (98-107); Glucose 115 mg/dL (65-115); Osmolality Calculated 310 mOsm/kg (285-295); Potassium 3.5 mmol/L (3.5-5.1); Sodium 138 mmol/L (136-145)
[2021-01-17] MEDS: pantoprazole DR 40 mg Tablet PO (09:14)
[2021-01-17] MEDS: dilTIAZem 60 mg Tablet PO ×2 (09:14→11:27)
[2021-01-17] MEDS: sennosides-docusate Tablet 1 TAB PO (09:14)
[2021-01-17] MEDS: potassium chloride ER 20 mEq Tablet 40 MEQ PO (09:14)
--- NOTE | 2021-01-17 10:08 | PM.PN ---
Subjective Subjective: Interval history: Lower extremity edema is improved. No dyspnea at rest or on exertion. Making a good volume of urine now. Hemodynamics remained stable. No uremic symptoms. Medications: Reviewed: Yes Medication Review Details: Current Medications Acetaminophen (Acetaminophen 325 Mg Tablet) 325 mg PO QID PRN PRN Reason: FEVER Acyclovir (Acyclovir 400 Mg Tablet) 1,000 mg PO Q24H [facility] Last Admin: 01/12/21 14:03 Dose: 1,000 mg Documented by: Aspirin (Aspirin 81 Mg Ec Tablet) 81 mg PO DAILY RITA Last Admin: 01/13/21 08:09 Dose: 81 mg Documented by: Atorvastatin Calcium (Atorvastatin 40 Mg Tablet) 40 mg PO BEDTIME [facility] Last Admin: 01/12/21 20:57 Dose: 40 mg Documented by: Diltiazem HCl (Diltiazem 30 Mg Tablet) 60 mg PO Q6H [facility] Last Admin: 01/13/21 03:58 Dose: 60 mg Documented by: Furosemide (Furosemide 10 Mg/Ml Sdv 4ml) 40 mg IVP Q12H [facility] Last Admin: 01/13/21 08:04 Dose: 40 mg Documented by: Heparin Sodium (Beef Lung) (Heparin 5,000 Unit/Ml Inj 1 Ml) 5,000 unit SUBCUT Q12H [facility] Last Admin: 01/11/21 22:02 Dose: Not Given Documented by: Dopamine HCl/Dextrose (Intropin Drip) 400 mg in 250 mls @ 5.069 mls/hr IV CONT RITA; Protocol Last Admin: 01/12/21 17:09 Dose: 2 mcg/kg/min, 5.1 mls/hr Documented by: Metolazone (Metolazone 5 Mg Tablet) 5 mg PO DAILY [facility] Last Admin: 01/13/21 08:09 Dose: 5 mg Documented by: Midodrine (Midodrine 5 Mg Tablet) 10 mg PO TID [facility] Last Admin: 01/13/21 08:09 Dose: 10 mg Documented by: Morphine Sulfate (Morphine Ir 15 Mg Tablet) 15 mg PO Q8H PRN PRN Reason: foot pain Ondansetron HCl (Ondansetron 2 Mg/Ml Sdv 2 Ml) 4 mg IVP Q6H PRN PRN Reason: NAUSEA AND VOMITING Last Admin: 01/08/21 23:19 Dose: 4 mg Documented by: Pantoprazole Sodium (Pantoprazole Dr 40 Mg Tablet) 40 mg PO DAILY [facility] Last Admin: 01/13/21 08:09 Dose: 40 mg Documented by: Prednisone (Prednisone 10 Mg Tablet) 10 mg PO DAILY [facility] Stop: 01/14/21 10:00 Last Admin: 01/13/21 08:09 Dose: 10 mg Documented by: Senna/Docusate Sodium (Sennosides-Docusate Tablet) 1 tab PO DAILY [facility] Last Admin: 01/13/21 08:10 Dose: 1 tab Documented by: Sevelamer Carbonate (Sevelamer 800 Mg Tablet) 800 mg PO TIDWM [facility] Last Admin: 01/13/21 08:04 Dose: 800 mg Documented by: Vitals/I&O/Wt Last Vital Signs Temp 98.5 F 01/17/21 07:21 Pulse 108 H 01/17/21 07:21 Resp 18 01/17/21 07:21 BP 124/58 01/17/21 07:21 Pulse Ox 92 01/17/21 07:21 01/16/21 01/17/21 01/17/21 22:59 06:59 14:59 Intake Total 240 / 530 Output Total 1200 / 1925 1000 / 2925 Balance -960 / -1395 -1000 / -2395 Weight last 48 hrs Weight 63.503 kg Weight 66.497 kg Physical Exam Narrative: EXAM NARRATIVE: Constitutional: Awake, comfortable HEENT: Wet mucosa, no jvp, non icteric Lungs: Bilaterally clear without discernible wheeze, rales in all lung zones CVS: S1 S2, no murmurs Abdo: Soft, BS ok Ext 4: wrinkled legs edema, peripheral perfusion with no cyanosis Neurological: Grossly non-focal Urinary Catheter Management^: Escobar: Cath Placed During This Visit: yes, but has since been removed by the nurse Reason for Continuing Indwelling Catheter: Other Urinary Catheter Date of Insertion: 01/07/21 Urinary Catheter Time of Insertion: 09:46 Date Urinary Catheter Removed: 01/17/21 Time Urinary Catheter Discontinued: 06:00 Data : 01/17/21 05:25 01/17/21 05:25 A&P Additional A&P Information 1. Acute renal failure Creatinine stable and urine output is now improving Likely to have developed IVVD from iduretics, will hold them for the rest of the day and eval in the am to potentially resume them No dialysis as she is now diuresing Renal imaging noted, large indeterminate cyst seen in the left kidney; I agree without patient follow up 2. A. fib with RVR and hemodynamics Currently on diltiazem, defer management to medical team. DC midodrine 3. Chemistry Bicarb increasing reflective of intravascular contraction alkalosis; hold diuretics for the time being Will be ok for DC from my perspective, will need close follow up with local Coin Purse Assembler, Dr Mina Thank you for consultation, as always it is a pleasure to follow these cases with you Tapan Bell MD Nephrology [phone] Patient seen and examined via telemedicine, with the assistance of the bedside RN > 25 min spent in evaluation and mgmt of patient Attestations Medical Necessity Statement*: eval for SHAQUILLE Coding Level of Care Code Acute Data Miner for Gaby Curry
[2021-01-17] MEDS: ferric gluconate 125 MG in sodium chloride 0.9% (100 ml) 100 ML 110 MG IV (11:27)
--- NOTE | 2021-01-17 14:28 | PM.PN ---
Subjective Subjective: Interval history: This morning patient was examined, she tells me that she does feel weak, no fevers, no chills, no chest pain, no shortness of breath, he does continue to have some minimal hemoptysis, she tells me that she is adamant about not going to skilled nursing as a family member was hospitalized for short time in a skilled nursing and remained there for the rest of her life, overall she feels better Vitals/I&O/Wt Last Vital Signs Temp 97.9 F 01/17/21 12:24 Pulse 112 H 01/17/21 12:24 Resp 18 01/17/21 12:24 BP 107/72 01/17/21 12:24 Pulse Ox 94 01/17/21 12:24 01/16/21 01/17/21 01/17/21 22:59 06:59 14:59 Intake Total 240 / 530 240 / 240 Output Total 1200 / 1925 1000 / 2925 Balance -960 / -1395 -1000 / -2395 240 / 240 Weight last 48 hrs Weight 63.503 kg Weight 66.497 kg Physical Exam Const: COMMON NORMALS: no acute distress and patient oriented x3 HENMT: COMMON NORMALS: normocephalic HEAD & SCALP: normocephalic Neck/C-Spine: COMMON NORMALS: no JVD Resp: COMMON NORMALS: normal respiratory effort, No retractions, No use of accessory muscles and clear to auscultation bilaterally AUSCULTATION: clear to auscultation bilaterally Cardio: COMMON NORMALS: no JVD, regular rate, regular rhythm, S1 normal heart sound present and S2 normal heart sound present RATE: regular rate RHYTHM: regular rhythm HEART SOUNDS: S1 normal heart sound present and S2 normal heart sound present GI: COMMON NORMALS: Normal to inspection, nondistended, normoactive bowel sounds present, Soft to palpation, non-tender, No hepatosplenomegaly present, no masses and no bruits PALPATION: Yes Soft to palpation and Yes No hepatosplenomegaly present Extremity: COMMON NORMALS: no clubbing, cyanosis or edema, no calf tenderness and no pedal edema Neuro: COMMON NORMALS: patient oriented x3 Psych: COMMON NORMALS: mental status grossly normal Urinary Catheter Management^: Escobar: Cath Placed During This Visit: yes, but has since been removed by the nurse Reason for Continuing Indwelling Catheter: Other Urinary Catheter Date of Insertion: 01/07/21 Urinary Catheter Time of Insertion: 09:46 Date Urinary Catheter Removed: 01/17/21 Time Urinary Catheter Discontinued: 06:00 Data : 01/17/21 05:25 01/17/21 05:25 A&P Assessment and plan (1) CHF (congestive heart failure): Status: Chronic Qualifiers: Heart failure type: combined systolic and diastolic Heart failure chronicity: acute on chronic Qualified Code(s): I50.43 - Acute on chronic combined systolic (congestive) and diastolic (congestive) heart failure (2) Pulmonary hypertension: Status: Chronic (3) Aortic stenosis: Status: Chronic Qualifiers: Cardiac valve disease etiology: nonrheumatic Qualified Code(s): I35.0 - Nonrheumatic aortic (valve) stenosis (4) Acute kidney injury superimposed on chronic kidney disease: Status: Acute (5) Shingles outbreak: Status: Acute Qualifiers: Herpes zoster complications: without complications Qualified Code(s): B02.9 - Zoster without complications (6) Mass of left cardiac ventricle: Status: Acute (7) Low blood pressure: Status: Resolved Qualifiers: Hypotension type: hypotension due to drug Qualified Code(s): I95.2 - Hypotension due to drugs (8) UTI (urinary tract infection): Urine culture no growth final Status: Ruled-out (9) Left renal mass: Will need outpatient follow-up Status: Acute (10) Aspiration pneumonia: Status post treatment Status: Acute (11) Hemoptysis: Has recurred; unclear description or severity Status: Acute (12) Acute gout: off of steorids Status: Resolved (13) Atrial fibrillation with RVR: recurrent Status: Acute (14) Anemia: stable Status: Acute Additional A&P Information Nephrology following Has good urine output Holding Lasix for today Holding Diamox for today Off of midodrine since 01/15 Off dopamine since 01/13 Off of Lasix drip since 01/14 Negative more than 12 L per whole hospital stay Monitor volume status closely On Renvela For atrial fibrillation, heart rate still in the 110s, at rest, increase Cardizem to 90 every 6 hours Remains off of home metoprolol, due to low blood pressures, may consider initiation if heart rate does not improve Escobar catheter Hope to remove catheter in the next couple of days if blood pressure, heart rate and renal function stabilize Hemoptysis:not currently on any anticoagulation secondary 2 episodes of hemoptysis and drop in H&H during the course of the hospital stay. Second episode occurred after resumption of anticoagulation from when it had previously been held due to hemoptysis. On Eliquis at home. Continues to have minimal atelectasis today Eliquis has been stopped, can resume as outpatient On aspirin Hemoccult has been sent out several days ago and is still pending Received IV iron replacment Steroid therapy for gout completed on 01/14 Remains off of home lisinopril secondary to renal function and hypotension Primaxin stopped on 01/10 On PPI Stool softeners On pain medications PT/OT Will need outpatient follow up for renal mass Supportive care otherwise Patient intolerant of SCDs secondary to pain although they are ordered and has had hemoptysis with a drop in hemoglobin so not currently on any pharmacological DVT prophylaxis Current plan is for patient to go home; she does not want to consider alternative options; declines home services Generalized deconditioning, weakness, declines skilled nursing placement, denies home health care Plan for today, hold Lasix, hold Diamox, monitor urine output, monitor heart rates, Cardizem dose increased, PT OT, likely discharge tomorrow Full code Attestations Medical Necessity Statement*: Patient requires hospitalization for acute renal failure, A. fib Coding Level of Care Code Acute Low Heel Builder for g Fwd Diagnoses CHF (congestive heart failure) I50.43 Heart failure type: combined systolic and diastolic Heart failure chronicity: acute on chronic Pulmonary hypertension I27.20 Aortic stenosis I35.0 Cardiac valve disease etiology: nonrheumatic Acute kidney injury superimposed on chronic kidney disease N17.9; N18.9 Shingles outbreak B02.9 Herpes zoster complications: without complications Mass of left cardiac ventricle I51.89 Low blood pressure I95.2 Hypotension type: hypotension due to drug UTI (urinary tract infection) N39.0 Left renal mass N28.89 Aspiration pneumonia J69.0 Hemoptysis R04.2 Acute gout M10.9 Atrial fibrillation with RVR I48.91 Anemia D64.9
--- NOTE | 2021-01-17 16:56 | PC.SOCIAL ---
IMM Updated Updated pt on Pg 2 IMM. No questions voiced. Provided pt a copy. Signed, dated, & timed a copy & placed in chart.
[2021-01-17] MEDS: sevelamer 800 mg Tablet PO (18:10)
[2021-01-17] MEDS: docusate sodium 100 mg Capsule PO (18:11)
[2021-01-17] MEDS: dilTIAZem 60 mg Tablet 90 MG PO ×2 (18:11→20:12)
[2021-01-17] MEDS: atorvastatin 40 mg Tablet PO (20:11)
[2021-01-18] VITALS (8 sets, daily range): BP systolic 106–115; BP diastolic 62–76; PULSE 75–113; RESP 17–18; TEMP 36.6–37; O2SAT 92–97
[2021-01-18] MEDS: dilTIAZem 60 mg Tablet 90 MG PO ×2 (06:30→12:19)
[2021-01-18 06:51] LABS: Basophils % 0.1 %; Eosinophils # 0.4 10^3/uL (0.0-0.8); Eosinophils % 3.7 %; Hematocrit 29.1 % (37.0-47.0); Hemoglobin 8.5 g/dL (11.5-15.3); Lymphocytes # 0.5 10^3/uL (0.8-4.8); Lymphocytes % 4.7 %; Mean Corpuscular HGB Conc 29.2 g/dL (30.0-36.0); Mean Corpuscular Hemoglobin 25.1 pg (28.0-34.0); Mean Corpuscular Volume 85.8 fL (81-99); Monocytes # 1.5 10^3/uL (0.2-0.9); Monocytes % 12.8 %; Neutrophils # 8.88 10^3/uL (1.8-7.7); Neutrophils % 78.1 %; Nucleated Red Blood Cells % 0 %; Platelet Count 172 10^3/cmm (130-400); Red Blood Count 3.39 10^6/uL (4.1-5.3); Red Cell Distribution Width 21.9 % (12.1-15.1); White Blood Count 11.4 10^3/uL (4.0-10.0)
[2021-01-18 07:05] LABS: Alanine Aminotransferase 14 U/L (0-33); Albumin Level 3.1 g/dL (3.5-5.2); Alkaline Phosphatase 99 IU/L (35-105); Aspartate Amino Transferase 18 U/L (0-32); Blood Urea Nitrogen 66 mg/dL (8-23); Calcium 8.1 mg/dL (8.5-10.5); Carbon Dioxide 38 mmol/L (22-29); Chloride 92 mmol/L (98-107); Globulin 2.6 g/dL (1.3-4.6); Glucose 127 mg/dL (65-115); Magnesium 1.9 mg/dL (1.7-2.3); Osmolality Calculated 305 mOsm/kg (285-295); Phosphorus 3.5 mg/dL (2.5-4.5); Sodium 137 mmol/L (136-145); Total Bilirubin 1.4 mg/dL (0.15-1.2); Total Protein 5.7 g/dL (6.6-8.7)
[2021-01-18] MEDS: potassium chloride ER 20 mEq Tablet 40 MEQ PO ×2 (09:43→12:18)
[2021-01-18] MEDS: sennosides-docusate Tablet 1 TAB PO (09:43)
[2021-01-18] MEDS: pantoprazole DR 40 mg Tablet PO (09:44)
[2021-01-18] MEDS: docusate sodium 100 mg Capsule PO ×2 (09:44→17:33)
[2021-01-18] MEDS: ferric gluconate 125 MG in sodium chloride 0.9% (100 ml) 100 ML 110 MG IV (10:00)
--- NOTE | 2021-01-18 11:01 | P.PN_ITS ---
Subjective Subjective: Interval history: Lower extremity edema is improved. No dyspnea at rest or on exertion. Making a good volume of urine now. Hemodynamics remained stable. No uremic symptoms. Diuretics are held yesterday Medications: Reviewed: Yes Medication Review Details: Current Medications Acetaminophen (Acetaminophen 325 Mg Tablet) 325 mg PO QID PRN PRN Reason: FEVER Acyclovir (Acyclovir 400 Mg Tablet) 1,000 mg PO Q24H [facility] Last Admin: 01/12/21 14:03 Dose: 1,000 mg Documented by: Aspirin (Aspirin 81 Mg Ec Tablet) 81 mg PO DAILY [facility] Last Admin: 01/13/21 08:09 Dose: 81 mg Documented by: Atorvastatin Calcium (Atorvastatin 40 Mg Tablet) 40 mg PO BEDTIME [facility] Last Admin: 01/12/21 20:57 Dose: 40 mg Documented by: Diltiazem HCl (Diltiazem 30 Mg Tablet) 60 mg PO Q6H [facility] Last Admin: 01/13/21 03:58 Dose: 60 mg Documented by: Furosemide (Furosemide 10 Mg/Ml Sdv 4ml) 40 mg IVP Q12H [facility] Last Admin: 01/13/21 08:04 Dose: 40 mg Documented by: Heparin Sodium (Beef Lung) (Heparin 5,000 Unit/Ml Inj 1 Ml) 5,000 unit SUBCUT Q12H [facility] Last Admin: 01/11/21 22:02 Dose: Not Given Documented by: Dopamine HCl/Dextrose (Intropin Drip) 400 mg in 250 mls @ 5.069 mls/hr IV CONT [facility]; Protocol Last Admin: 01/12/21 17:09 Dose: 2 mcg/kg/min, 5.1 mls/hr Documented by: Metolazone (Metolazone 5 Mg Tablet) 5 mg PO DAILY [facility] Last Admin: 01/13/21 08:09 Dose: 5 mg Documented by: Midodrine (Midodrine 5 Mg Tablet) 10 mg PO TID [facility] Last Admin: 01/13/21 08:09 Dose: 10 mg Documented by: Morphine Sulfate (Morphine Ir 15 Mg Tablet) 15 mg PO Q8H PRN PRN Reason: foot pain Ondansetron HCl (Ondansetron 2 Mg/Ml Sdv 2 Ml) 4 mg IVP Q6H PRN PRN Reason: NAUSEA AND VOMITING Last Admin: 01/08/21 23:19 Dose: 4 mg Documented by: Pantoprazole Sodium (Pantoprazole Dr 40 Mg Tablet) 40 mg PO DAILY [facility] Last Admin: 01/13/21 08:09 Dose: 40 mg Documented by: Prednisone (Prednisone 10 Mg Tablet) 10 mg PO DAILY [facility] Stop: 01/14/21 10:00 Last Admin: 01/13/21 08:09 Dose: 10 mg Documented by: Senna/Docusate Sodium (Sennosides-Docusate Tablet) 1 tab PO DAILY [facility] Last Admin: 01/13/21 08:10 Dose: 1 tab Documented by: Sevelamer Carbonate (Sevelamer 800 Mg Tablet) 800 mg PO TIDWM ON [facility] Last Admin: 01/13/21 08:04 Dose: 800 mg Documented by: Vitals/I&O/Wt Last Vital Signs Temp 98.2 F 01/18/21 07:31 Pulse 90 01/18/21 07:31 Resp 18 01/18/21 07:31 BP 106/62 01/18/21 07:31 Pulse Ox 92 01/18/21 07:31 01/17/21 01/18/21 01/18/21 22:59 06:59 14:59 Intake Total 110 / 350 120 / 120 Output Total 425 / 425 0 / 425 Balance -315 / -75 0 / -75 120 / 120 Weight last 48 hrs Weight 63.049 kg Weight 63.503 kg Physical Exam Narrative: EXAM NARRATIVE: Constitutional: Awake, comfortable HEENT: Wet mucosa, no jvp, non icteric Lungs: Bilaterally clear without discernible wheeze, rales in all lung zones CVS: S1 S2, no murmurs Abdo: Soft, BS ok Ext 4: wrinkled legs edema, peripheral perfusion with no cyanosis Neurological: Grossly non-focal Urinary Catheter Management^: Escobar: Cath Placed During This Visit: yes, but has since been removed by the nurse Reason for Continuing Indwelling Catheter: Other Urinary Catheter Date of Insertion: 01/07/21 Urinary Catheter Time of Insertion: 09:46 Date Urinary Catheter Removed: 01/17/21 Time Urinary Catheter Discontinued: 06:00 Data : 01/18/21 06:30 01/18/21 06:30 A&P Additional A&P Information 1. Acute renal failure Creatinine stable and urine output is now improving Vinay to resume Lasix tomorrow; 80mg po daily No dialysis as she is now diuresing Renal imaging noted, large indeterminate cyst seen in the left kidney; I agree without patient follow up 2. A. fib with RVR and hemodynamics Currently on diltiazem, defer management to medical team. DC midodrine 3. Chemistry K redosed today, extra 40mEq given Will be ok for DC from my perspective, will need close follow up with local Drug Safety Data Management Specialist, Dr Mina Thank you for consultation, as always it is a pleasure to follow these cases with you Tapan Bell MD Nephrology [phone] Patient seen and examined via telemedicine, with the assistance of the bedside RN > 25 min spent in evaluation and mgmt of patient Attestations Medical Necessity Statement*: eval for renal failure Coding Level of Care Code Acute Apparel Fashion Designer for Anatg Patricio
--- NOTE | 2021-01-18 12:07 | P.DS_ITS ---
Discharge Providers Date of Admission: 01/06/21 13:23 Date of Discharge: January 18, 2021 Attending Provider at Admission: Chava Eduardo MD Attending Provider at Discharge: Long Quintero MD Primary Care Provider: Le Carrizales NP Diagnoses at Discharge Discharge Diagnosis (1) CHF (congestive heart failure): Status: Chronic Qualifiers: Heart failure type: combined systolic and diastolic Heart failure chronicity: acute on chronic Qualified Code(s): I50.43 - Acute on chronic combined systolic (congestive) and diastolic (congestive) heart failure (2) Pulmonary hypertension: Status: Chronic (3) Aortic stenosis: Status: Chronic Permanent problem details: Mild Qualifiers: Cardiac valve disease etiology: nonrheumatic Qualified Code(s): I35.0 - Nonrheumatic aortic (valve) stenosis (4) Acute kidney injury superimposed on chronic kidney disease: Status: Acute (5) Shingles outbreak: Status: Acute Qualifiers: Herpes zoster complications: without complications Qualified Code(s): B02.9 - Zoster without complications (6) Mass of left cardiac ventricle: Status: Acute (7) Low blood pressure: Status: Resolved Qualifiers: Hypotension type: hypotension due to drug Qualified Code(s): I95.2 - Hypotension due to drugs (8) UTI (urinary tract infection): Status: Ruled-out (9) Left renal mass: Status: Acute (10) Aspiration pneumonia: Status: Acute (11) Hemoptysis: Status: Acute (12) Acute gout: Status: Resolved (13) Atrial fibrillation with RVR: Status: Acute (14) Anemia: Status: Acute Reason for Visit Reason for Visit: PT STATES GOUT CAUSING DIFF WALKING Hospital Course Hospital Course This is a 85-year-old female with a past medical history of systolic heart failure, COPD, pulmonary hypertension, paroxysmal A. fib, aortic stenosis, chronic anemia, who presents to [facility] due to complaints of weakness and bilateral great toe pain For acute gouty flare, she was managed with prednisone as inpatient, which has resolved Patient did have episodes of intermittent A. fib with RVR during hospitalization, was intolerant to metoprolol due to hypotensive episodes, borderline low blood pressures, transition to Cardizem, discharged on Cardizem 120 every 12 hours with a close follow-up with cardiology as outpatient Patient's Eliquis was placed on hold during her hospitalization due to recurrent episodes of hemoptysis, and anemia as low as 7.8. Hemoglobin discharge was 8.5, continues to have some minimal episodes of blood in her sputum. Eliquis will be held until she follows up with cardiology as outpatient, repeat CBC in 2 weeks, resume if hemoptysis has resolved and hemoglobin is within normal limits. Nonetheless I have discharged her on aspirin 325 mg daily in the interim. Patient was advised if she were to have recurrent episodes hemoptysis weakness or fatigue come back to the emergency room Patient developed acute renal failure during her hospitalization, due to accommodation of right-sided heart failure, systolic heart failure, cardiorenal syndrome, CRS. Her creatinine was as high as 3.6, with minimal urine output. Nephrology was consulted, patient was managed on a Lasix drip, with midodrine, and a dopamine drip. Her creatinine improved, urine output improved, clinically improved. Her midodrine and dopamine drip were stopped. On discharge her creatinine is 2.6, continues to have good urine output, she will resume 80 mg of Lasix daily with potassium replacement, with a follow-up with cardiology in 1 to 2 weeks. Follow-up with nephrology in 1 to 2 weeks. Patient did have a mild acute CHF exacerbation, managed with diuretics, echocardiogram with contrast shows an EF of 45%, global hypokinesis, no change from echocardiogram a year ago. Patient will follow up with cardiology as outpatient. For her pulmonary hypertension, she had a right heart cath by Dr. Wood back in 2019, moderate pulmonary pretension which was not reversible, mixed, referred to pulmonary hypertension clinic and [facility], after extensive testing she was told that there was nothing significant that could be done On her echocardiogram there was concerns for a left ventricular mass, however she remained afebrile, all cultures have been unremarkable, repeat echocardiogram with contrast showed that there is a thickening of the subvalvular apparatus of the mitral valve which is less likely to be a vegetation most likely is due to calcification There was concerns for aspiration pneumonia during hospitalization, received antibiotics, clinically improved. Patient was also found to have a left renal mass on CT scan of the abdomen pelvis, she will have to follow-up with urology as outpatient For her anemia, likely a combination of acute renal failure, possibly a slow GI bleed, hemoptysis. Hemoglobin discharge is 8.6, no reported bloody or black stools. Continues to have minimal hemoptysis. Her Hemoccult stool is pending. Recheck CBC in 1 to 2 weeks. Patient was advised if she were to have of bloody or black stools, recurrent and worsening hemoptysis go to the emergency room. Discharged on Protonix and Carafate. If patient continues to have anemia, referral has been made to general surgery for consideration of an EGD. During her hospitalization, patient did have significant deconditioning, weakness secondary to prolonged hospitalization. I and previous physicians have strongly advised for retirement placement for short-term rehab. We have advised patient strongly of the high risk of morbidity and mortality, high risk of readmission, high risk of complications of going home without appropriate help. We felt that she needs significant help such that cannot be appropriately done at home. Patient adamantly refused retirement placement for short-term rehab as her mom in a retirement. I was able to negotiate with patient and get her home health care with home physical therapy, and her brothers are very involved in her care, and take care of her daily. Nonetheless I have advised patient that I am still quite worried about her deconditioned state, risk of falls, her risk of worsening renal function and cardiac functioning, high risk of readmission, high risk of complications, high risk of morbidity and mortality. She voiced understanding, all questions answered, and was still adamant about going home. Physical Exam Const: COMMON NORMALS: no acute distress and patient oriented x3 HENMT: COMMON NORMALS: normocephalic HEAD & SCALP: normocephalic Neck/C-Spine: COMMON NORMALS: no JVD Resp: COMMON NORMALS: normal respiratory effort, No retractions, No use of accessory muscles and clear to auscultation bilaterally AUSCULTATION: clear to auscultation bilaterally Cardio: COMMON NORMALS: no JVD, regular rate, regular rhythm, S1 normal heart sound present and S2 normal heart sound present RATE: regular rate RHYTHM: regular rhythm HEART SOUNDS: S1 normal heart sound present and S2 normal heart sound present GI: COMMON NORMALS: Normal to inspection, nondistended, normoactive bowel sounds present, Soft to palpation, non-tender, No hepatosplenomegaly present, no masses and no bruits PALPATION: Yes Soft to palpation and Yes No hepatosplenomegaly present Extremity: COMMON NORMALS: capillary refill normal, no clubbing, cyanosis or edema, no calf tenderness and no pedal edema Neuro: COMMON NORMALS: patient oriented x3 Psych: COMMON NORMALS: mental status grossly normal Urinary Catheter Management^: Escobar: Cath Placed During This Visit: yes, but has since been removed by the nurse Reason for Continuing Indwelling Catheter: Other Urinary Catheter Date of Insertion: 01/07/21 Urinary Catheter Time of Insertion: 09:46 Date Urinary Catheter Removed: 01/17/21 Time Urinary Catheter Discontinued: 06:00 Discharge Data Data Completed and Pending: Completed Studies During Hospitalization Category Date Time Status CT abdomen pelvis wo con [id number] Rout ine Cat Scan 01/07/21 15:[address] chest wo con 7 1250 Routine Cat Scan 01/08/21 22:49 Completed XR ankle RT min 3 V* [id number] Urgent Exams 01/05/21 23:26 Completed XR chest 1V kisha ble [id number] Routine Exams 01/10/21 07:00 Completed XR chest 1V kisha ble [id number] Stat Exams 01/05/21 23:12 Completed XR foot RT min 3V * [id number] Urgent Exams 01/05/21 23:26 Completed CV echo complete* [id number] Routine Ultrasound 01/06/21 12:41 Completed CV echo lmt wo/w contras [id number] Stat Ultrasound 01/07/21 13:28 [place] [id number] Urgent Ultrasound 01/05/21 23:18 [place] [id number] Routin e Ultrasound 01/11/21 07:30 Completed US renal BI* [id number] 0 Routine Ultrasound 01/07/21 09:33 Completed US/CV paperwork R outine Ultrasound 01/07/21 14:43 Completed Pending at discharge Category Date Time Status Complete Blood Co unt w/Auto AM LABS Lab 01/19/21 04:00 Ordered Complete Blood Co unt w/Auto AM LABS Lab 01/20/21 04:00 Ordered Comprehensive Met abolic Panel AM LA BS Lab 01/19/21 04:00 Ordered Comprehensive Met abolic Panel AM LA BS Lab 01/20/21 04:00 Ordered Magnesium AM LABS Lab 01/19/21 04:00 Ordered Magnesium AM LABS Lab 01/20/21 04:00 Ordered Miscellaneous Roxanne t Routine Lab 01/14/21 09:37 Received Phosphorus AM LAB S Lab 01/19/21 04:00 Ordered Phosphorus AM LAB S Lab 01/20/21 04:00 Ordered Labs from last 24 hours 01/18/21 01/18/21 06:30 06:30 WBC 11.4 H RBC 3.39 L Hgb 8.5 L Hct 29.1 L MCV 85.8 MCH 25.1 L MCHC 29.2 L RDW 21.9 H Plt Count 172 MPV 11.0 H Neut % (Auto) 78.1 Lymph % (Auto) 4.7 [place] % (Auto) 12.8 Eos % (Auto) 3.7 Baso % (Auto) 0.1 Neut # (Auto) 8.88 H Lymph # (Auto) 0.5 L [place] # (Auto) 1.5 H Eos # (Auto) 0.4 Baso # (Auto) 0.0 Nucleated RBC % (a uto) 0 Nucleated RBCs # 0.0 Sodium 137 Potassium 3.0 L Chloride 92 L Carbon Dioxide 38 H Anion Gap 10.0 BUN 66 H Creatinine 2.6 H GFR Calculation Not Reportable Glucose 127 H Calculated Osmolal ity 305 H Calcium 8.1 L Phosphorus 3.5 Magnesium 1.9 Total Bilirubin 1.4 H AST 18 ALT 14 Alkaline Phosphata se 99 Total Protein 5.7 L Albumin 3.1 L Globulin 2.6 Vitals: Last Vital Signs Temp 98.6 F 01/18/21 11:35 Pulse 84 01/18/21 11:35 Resp 17 01/18/21 11:35 BP 110/64 01/18/21 11:35 Pulse Ox 94 01/18/21 11:35 Discharge Plan Discharge Patient Disposition: Home Condition: Stable Prescriptions: New atorvastatin 40 mg Tablet 40 mg PO BEDTIME 30 Days Qty: 30 RF: 0 potassium chloride [Klor-Con M20] 20 mEq Tablet,Er Particles/Crystals 40 meq PO DAILY 30 Days Qty: 60 RF: 0 furosemide 40 mg Tablet 80 mg PO DAILY@0800 30 Days Qty: 60 RF: 0 Cardizem LA 120 mg tablet extended release 24 hr 120 mg PO Q12H 30 Days Qty: 60 RF: 0 aspirin 325 mg tablet 325 mg PO DAILY 30 Days Qty: 30 RF: 0 sevelamer carbonate 800 mg Tablet 800 mg PO 1700 30 Days Qty: 30 RF: 0 docusate sodium [DOK] 100 mg Capsule 100 mg PO BID 30 Days Qty: 60 RF: 0 sucralfate [Carafate] 1 gram tablet 1 g PO BID 30 Days Qty: 60 RF: 0 Continued acetaminophen [Tylenol] 325 mg tablet 325 mg PO QID PRN (Reason: Pain) RF: 0 pantoprazole 40 mg tablet,delayed release (DR/EC) 40 mg PO BID@08,17 RF: 0 Held Eliquis 2.5 mg tablet 2.5 mg PO BID@,17 RF: 0 Hold Instructions: Resume on 02/01/21. HOLD until seen by cardiology Discontinued furosemide 40 mg tablet 40 mg PO BID 90 Days Qty: 180 RF: 3 metoprolol tartrate 50 mg tablet 50 mg PO BID RF: 0 lisinopril 2.5 mg tablet 2.5 mg PO DAILY RF: 0 Hold Instructions: Doctor's Order potassium chloride 10 mEq tablet extended release 20 meq PO BID@,17 RF: 0 Discharge Orders: Discharge Order (Routine); Ordered 01/18/21 Ordered By: Long Quintero Referrals: Collins Mina MD [Referring] - 1 week (renal failure) Negrito Samson MD [Physician] - 1 week (L renal mass) Dex Cali MD [Physician] - 1 month (EGD for anemia) Le Carrizales NP [Primary Care Provider] - Leigh Ann Morin MD [Physician] - 1 week (chf and afib) Discharge Diet: Cardiac Discharge Activity: Increase activity as tolerated Patient Instructions: Opioid Safety Activity Restrictions/Additional Instructions: -Please hold Eliquis 2.5 mg twice daily until seen by cardiology, repeat CBC, if hemoglobin is within reasonable range resume -For now continue aspirin 325 mg daily -Start Lasix 80 mg daily with potassium placement tomorrow, follow-up with cardiology -Repeat CBC and CMP within 1 week -Creatinine on discharge is 2.6 -For atrial fibrillation Cardizem dose has increased to 120 mg twice daily, -Beta-kareen was stopped due to hypotension -Continue to monitor for hemoptysis, if so go to the emergency room -Please follow-up with urology for left renal mass Discharge Attestations Time Spent in Discharge Care*: less than 30 min Quality Metrics Clinical Quality Measures During this hospital stay, did patient experience: None Coding Level of Care Code Acute Chg FW [place] note Diagnoses CHF (congestive heart failure) I50.43 Heart failure type: combined systolic and diastolic Heart failure chronicity: acute on chronic Pulmonary hypertension I27.20 Aortic stenosis I35.0 Cardiac valve disease etiology: nonrheumatic Acute kidney injury superimposed on chronic kidney disease N17.9; N18.9 Shingles outbreak B02.9 Herpes zoster complications: without complications Mass of left cardiac ventricle I51.89 Low blood pressure I95.2 Hypotension type: hypotension due to drug UTI (urinary tract infection) N39.0 Left renal mass N28.89 Aspiration pneumonia J69.0 Hemoptysis R04.2 Acute gout M10.9 Atrial fibrillation with RVR I48.91 Anemia D64.9
--- NOTE | 2021-01-18 15:52 | PM.PN ---
Subjective Subjective: Interval history: Patient was examined this morning, her brother is at bedside, I have discussed discharge planning with patient, she tells me that she wants to go home, she refuses penitentiary placement she is feeling weak, but no fevers, no cough, no shortness of breath Later on the afternoon, patient changed her mind, she would like to go to a penitentiary Medications: Medication Review Details: Current Medications Acetaminophen (Acetaminophen 325 Mg Tablet) 325 mg PO QID PRN PRN Reason: FEVER Acyclovir (Acyclovir 400 Mg Tablet) 1,000 mg PO Q24H [facility] Last Admin: 01/12/21 14:03 Dose: 1,000 mg Documented by: Aspirin (Aspirin 81 Mg Ec Tablet) 81 mg PO DAILY [facility] Last Admin: 01/13/21 08:09 Dose: 81 mg Documented by: Atorvastatin Calcium (Atorvastatin 40 Mg Tablet) 40 mg PO BEDTIME [facility] Last Admin: 01/12/21 20:57 Dose: 40 mg Documented by: Diltiazem HCl (Diltiazem 30 Mg Tablet) 60 mg PO Q6H [facility] Last Admin: 01/13/21 03:58 Dose: 60 mg Documented by: Furosemide (Furosemide 10 Mg/Ml Sdv 4ml) 40 mg IVP Q12H [facility] Last Admin: 01/13/21 08:04 Dose: 40 mg Documented by: Heparin Sodium (Beef Lung) (Heparin 5,000 Unit/Ml Inj 1 Ml) 5,000 unit SUBCUT Q12H [facility] Last Admin: 01/11/21 22:02 Dose: Not Given Documented by: Dopamine HCl/Dextrose (Intropin Drip) 400 mg in 250 mls @ 5.069 mls/hr IV CONT [facility]ITA; Protocol Last Admin: 01/12/21 17:09 Dose: 2 mcg/kg/min, 5.1 mls/hr Documented by: Metolazone (Metolazone 5 Mg Tablet) 5 mg PO DAILY [facility] Last Admin: 01/13/21 08:09 Dose: 5 mg Documented by: Midodrine (Midodrine 5 Mg Tablet) 10 mg PO TID [facility] Last Admin: 01/13/21 08:09 Dose: 10 mg Documented by: Morphine Sulfate (Morphine Ir 15 Mg Tablet) 15 mg PO Q8H PRN PRN Reason: foot pain Ondansetron HCl (Ondansetron 2 Mg/Ml Sdv 2 Ml) 4 mg IVP Q6H PRN PRN Reason: NAUSEA AND VOMITING Last Admin: 01/08/21 23:19 Dose: 4 mg Documented by: Pantoprazole Sodium (Pantoprazole Dr 40 Mg Tablet) 40 mg PO DAILY [facility] Last Admin: 01/13/21 08:09 Dose: 40 mg Documented by: Prednisone (Prednisone 10 Mg Tablet) 10 mg PO DAILY [facility] Stop: 01/14/21 10:00 Last Admin: 01/13/21 08:09 Dose: 10 mg Documented by: Senna/Docusate Sodium (Sennosides-Docusate Tablet) 1 tab PO DAILY [facility] Last Admin: 01/13/21 08:10 Dose: 1 tab Documented by: Sevelamer Carbonate (Sevelamer 800 Mg Tablet) 800 mg PO TIDWM [facility] Last Admin: 01/13/21 08:04 Dose: 800 mg Documented by: Vitals/I&O/Wt Last Vital Signs Temp 98.6 F 01/18/21 11:35 Pulse 84 01/18/21 11:35 Resp 17 01/18/21 11:35 BP 110/64 01/18/21 11:35 Pulse Ox 94 01/18/21 11:35 01/18/21 01/18/21 01/18/21 06:59 14:59 22:59 Intake Total 240 / 240 Output Total 0 / 425 Balance 0 / -75 240 / 240 Weight last 48 hrs Weight 63.049 kg Weight 63.503 kg Physical Exam Const: COMMON NORMALS: no acute distress and patient oriented x3 HENMT: COMMON NORMALS: normocephalic HEAD & SCALP: normocephalic Neck/C-Spine: COMMON NORMALS: no JVD Resp: COMMON NORMALS: normal respiratory effort, No retractions, No use of accessory muscles and clear to auscultation bilaterally AUSCULTATION: clear to auscultation bilaterally Cardio: COMMON NORMALS: no JVD, regular rate, regular rhythm, S1 normal heart sound present and S2 normal heart sound present RATE: regular rate RHYTHM: regular rhythm HEART SOUNDS: S1 normal heart sound present and S2 normal heart sound present GI: COMMON NORMALS: Normal to inspection, nondistended, normoactive bowel sounds present, Soft to palpation, non-tender, No hepatosplenomegaly present, no masses and no bruits PALPATION: Yes Soft to palpation and Yes No hepatosplenomegaly present Extremity: COMMON NORMALS: capillary refill normal, no clubbing, cyanosis or edema, no calf tenderness and no pedal edema Neuro: COMMON NORMALS: patient oriented x3 Psych: COMMON NORMALS: mental status grossly normal Urinary Catheter Management^: Escobar: Cath Placed During This Visit: yes, but has since been removed by the nurse Reason for Continuing Indwelling Catheter: Other Urinary Catheter Date of Insertion: 01/07/21 Urinary Catheter Time of Insertion: 09:46 Date Urinary Catheter Removed: 01/17/21 Time Urinary Catheter Discontinued: 06:00 Data : 01/18/21 06:30 01/18/21 06:30 A&P Assessment and plan (1) CHF (congestive heart failure): Status: Chronic Qualifiers: Heart failure type: combined systolic and diastolic Heart failure chronicity: acute on chronic Qualified Code(s): I50.43 - Acute on chronic combined systolic (congestive) and diastolic (congestive) heart failure (2) Pulmonary hypertension: Status: Chronic (3) Aortic stenosis: Status: Chronic Qualifiers: Cardiac valve disease etiology: nonrheumatic Qualified Code(s): I35.0 - Nonrheumatic aortic (valve) stenosis (4) Acute kidney injury superimposed on chronic kidney disease: Status: Acute (5) Shingles outbreak: Status: Acute Qualifiers: Herpes zoster complications: without complications Qualified Code(s): B02.9 - Zoster without complications (6) Mass of left cardiac ventricle: Status: Acute (7) Low blood pressure: Status: Resolved Qualifiers: Hypotension type: hypotension due to drug Qualified Code(s): I95.2 - Hypotension due to drugs (8) UTI (urinary tract infection): Urine culture no growth final Status: Ruled-out (9) Left renal mass: Will need outpatient follow-up Status: Acute (10) Aspiration pneumonia: Status post treatment Status: Acute (11) Hemoptysis: Has recurred; unclear description or severity Status: Acute (12) Acute gout: off of steorids Status: Resolved (13) Atrial fibrillation with RVR: recurrent Status: Acute (14) Anemia: stable Status: Acute Additional A&P Information Nephrology following Has good urine output Holding Lasix for today Holding Diamox for today Off of midodrine since 01/15 Off dopamine since 01/13 Off of Lasix drip since 01/14 Negative more than 12 L per whole hospital stay Monitor volume status closely On Renvela For atrial fibrillation, change Cardizem to 60 every 6 hours Remains off of home metoprolol, due to low blood pressures, may consider initiation if heart rate does not improve Escobar catheter Hope to remove catheter in the next couple of days if blood pressure, heart rate and renal function stabilize Hemoptysis:not currently on any anticoagulation secondary 2 episodes of hemoptysis and drop in H&H during the course of the hospital stay. Second episode occurred after resumption of anticoagulation from when it had previously been held due to hemoptysis. On Eliquis at home. Continues to have minimal atelectasis today Eliquis has been stopped, can resume as outpatient On aspirin Hemoccult has been sent out several days ago and is still pending Received IV iron replacment Steroid therapy for gout completed on 01/14 Remains off of home lisinopril secondary to renal function and hypotension Primaxin stopped on 01/10 On PPI Stool softeners On pain medications PT/OT Will need outpatient follow up for renal mass Supportive care otherwise Patient intolerant of SCDs secondary to pain although they are ordered and has had hemoptysis with a drop in hemoglobin so not currently on any pharmacological DVT prophylaxis Current plan is for patient to go home; she does not want to consider alternative options; declines home services Generalized deconditioning, weakness, declines penitentiary placement, denies home health care Plan for today, hold Lasix, hold Diamox, monitor urine output, monitor heart rates, change Cardizem dose to 60 every 6 PT OT, working on penitentiary placement Full code Attestations Medical Necessity Statement*: Patient requires hospitalization for CHF, acute renal failure, awaiting penitentiary placement Coding Level of Care Code Acute [employer] Systems [employer] [facility] Diagnoses CHF (congestive heart failure) I50.43 Heart failure type: combined systolic and diastolic Heart failure chronicity: acute on chronic Pulmonary hypertension I27.20 Aortic stenosis I35.0 Cardiac valve disease etiology: nonrheumatic Acute kidney injury superimposed on chronic kidney disease N17.9; N18.9 Shingles outbreak B02.9 Herpes zoster complications: without complications Mass of left cardiac ventricle I51.89 Low blood pressure I95.2 Hypotension type: hypotension due to drug UTI (urinary tract infection) N39.0 Left renal mass N28.89 Aspiration pneumonia J69.0 Hemoptysis R04.2 Acute gout M10.9 Atrial fibrillation with RVR I48.91 Anemia D64.9
[2021-01-18] MEDS: sevelamer 800 mg Tablet PO (17:33)
[2021-01-18] MEDS: dilTIAZem 60 mg Tablet PO ×2 (17:34→22:18)
[2021-01-18] MEDS: atorvastatin 40 mg Tablet PO (22:18)
[2021-01-19] VITALS: BP 137/79; PULSE 102; RESP 16; TEMP 37.3; O2SAT 97
[2021-01-19 04:00] VITALS: BP 113/57; PULSE 94; RESP 16; TEMP 37.4; O2SAT 94
[2021-01-19] MEDS: dilTIAZem 60 mg Tablet PO ×2 (04:47→09:25)
[2021-01-19 06:00] VITALS: PULSE 95
[2021-01-19 06:14] LABS: Basophils % 0.1 %; Eosinophils # 0.5 10^3/uL (0.0-0.8); Eosinophils % 3.4 %; Hemoglobin 8.5 g/dL (11.5-15.3); Lymphocytes # 0.8 10^3/uL (0.8-4.8); Lymphocytes % 6.1 %; Mean Corpuscular HGB Conc 29.3 g/dL (30.0-36.0); Mean Corpuscular Hemoglobin 25.1 pg (28.0-34.0); Mean Corpuscular Volume 85.8 fL (81-99); Mean Platelet Volume 11.6 fL (7.4-10.4); Monocytes # 1.7 10^3/uL (0.2-0.9); Monocytes % 12.7 %; Neutrophils # 10.56 10^3/uL (1.8-7.7); Neutrophils % 77.2 %; Nucleated Red Blood Cells % 0 %; Platelet Count 191 10^3/cmm (130-400); Red Blood Count 3.38 10^6/uL (4.1-5.3); Red Cell Distribution Width 22.4 % (12.1-15.1); White Blood Count 13.7 10^3/uL (4.0-10.0)
[2021-01-19 06:50] LABS: Alanine Aminotransferase 12 U/L (0-33); Albumin Level 2.8 g/dL (3.5-5.2); Alkaline Phosphatase 93 IU/L (35-105); Anion Gap 12.1 (5-19); Aspartate Amino Transferase 16 U/L (0-32); Blood Urea Nitrogen 54 mg/dL (8-23); Calcium 7.9 mg/dL (8.5-10.5); Carbon Dioxide 33 mmol/L (22-29); Chloride 95 mmol/L (98-107); Globulin 2.5 g/dL (1.3-4.6); Glucose 99 mg/dL (65-115); Magnesium 1.8 mg/dL (1.7-2.3); Osmolality Calculated 297 mOsm/kg (285-295); Phosphorus 2.8 mg/dL (2.5-4.5); Potassium 4.1 mmol/L (3.5-5.1); Sodium 136 mmol/L (136-145); Total Bilirubin 1.4 mg/dL (0.15-1.2); Total Protein 5.3 g/dL (6.6-8.7)
[2021-01-19 07:36] VITALS: BP 114/69; PULSE 103; RESP 17; TEMP 37.1; O2SAT 93
--- NOTE | 2021-01-19 08:00 | PM.PN ---
Subjective Subjective: Interval history: confused, leg pain- thinks she is having a gout flare, poor appetite, weak. Medications: Reviewed: Yes Medication Review Details: Current Medications Acetaminophen (Acetaminophen 325 Mg Tablet) 325 mg PO QID PRN PRN Reason: FEVER Atorvastatin Calcium (Atorvastatin 40 Mg Tablet) 40 mg PO BEDTIME [facility] Last Admin: 01/18/21 22:18 Dose: 40 mg Documented by: Diltiazem HCl (Diltiazem 60 Mg Tablet) 60 mg PO Q6H [facility] Last Admin: 01/19/21 04:47 Dose: 60 mg Documented by: Docusate Sodium (Docusate Sodium 100 Mg Capsule) 100 mg PO BID [facility] Last Admin: 01/18/21 17:33 Dose: 100 mg Documented by: Furosemide (Furosemide 40 Mg Tablet) 80 mg PO DAILY@0800 [facility] Ferric Sodium Gluconate 125 mg (/ Sodium Chloride) 110 mls @ 110 mls/hr IV Q24H [facility] Stop: 01/20/21 09:59 Last Infusion: 01/18/21 17:22 Dose: Infused Documented by: Lanolin (Lanolin Oint 7 Gm) 1 applic TOPICAL PRN PRN PRN Reason: DRYNESS Ondansetron HCl (Ondansetron 2 Mg/Ml Sdv 2 Ml) 4 mg IVP Q6H PRN PRN Reason: NAUSEA AND VOMITING Last Admin: 01/08/21 23:19 Dose: 4 mg Documented by: Pantoprazole Sodium (Pantoprazole Dr 40 Mg Tablet) 40 mg PO DAILY [facility] Last Admin: 01/18/21 09:44 Dose: 40 mg Documented by: Potassium Chloride (Potassium Chloride Er 20 Meq Tablet) 40 meq PO DAILY [facility] Last Admin: 01/18/21 09:43 Dose: 40 meq Documented by: Senna/Docusate Sodium (Sennosides-Docusate Tablet) 1 tab PO DAILY [facility] Last Admin: 01/18/21 09:43 Dose: 1 tab Documented by: Sevelamer Carbonate (Sevelamer 800 Mg Tablet) 800 mg PO 1700 [facility] Last Admin: 01/18/21 17:33 Dose: 800 mg Documented by: Vitals/I&O/Wt Last Vital Signs Temp 98.7 F 01/19/21 07:36 Pulse 103 H 01/19/21 07:36 Resp 17 01/19/21 07:36 BP 114/69 01/19/21 07:36 Pulse Ox 93 01/19/21 07:36 01/18/21 01/19/21 01/19/21 22:59 06:59 14:59 Intake Total 230 / 470 Balance 230 / 470 Weight last 48 hrs Weight 62.324 kg Weight 63.049 kg Physical Exam Narrative: EXAM NARRATIVE: obese lady lying in bed, comfortable on nc 02 3L vs noted and stable heent- nc/at, eomi neck- obese lungs -dull bases, improved heart-irreg irreg, +ELIZABETH abd soft, NT, +BS ext b/l edema of legs are improved , maybe trace edema. no redness. she is very tender on legs neuro- a,a, o x 2, no asterixis. mood good Urinary Catheter Management^: Escobar: Cath Placed During This Visit: yes, but has since been removed by the nurse Reason for Continuing Indwelling Catheter: Other Urinary Catheter Date of Insertion: 01/07/21 Urinary Catheter Time of Insertion: 09:46 Date Urinary Catheter Removed: 01/17/21 Time Urinary Catheter Discontinued: 06:00 Data : 01/19/21 05:30 01/19/21 05:30 A&P Additional A&P Information 1. Acute renal failure Creatinine stable and urine output is okay team, resumed her Lasix 80mg po daily No dialysis as she is now diuresing Renal imaging noted, large indeterminate cyst seen in the left kidney; I agree without patient follow up 2. A. fib with RVR and hemodynamics Currently on diltiazem, defer management to medical team. DC midodrine 3. met alkalosis improved w/ holding lasix 3b -k improved off lasix and w/ repletion- monitor 4. anemia- iv iron and antonino 5. can hold renvela- normal phos 5. h/o hyperuricemia and pain in legs- check uric acid level -consider allopurinol Will be ok for DC from my perspective, will need close follow up with local [facility], Dr Mina Thank you for consultation, as always it is a pleasure to follow these cases with you Tapan Bell MD Nephrology [phone] Patient seen and examined via telemedicine, with the assistance of the bedside RN > 25 min spent in evaluation and mgmt of patient Attestations Medical Necessity Statement*: naldo medicine Time Spent in Patient Care: 16 - 35 minutes Coding Level of Care Code Acute Registered Nurse Cardiac Telemetry for Gaby Curry
[2021-01-19] MEDS: docusate sodium 100 mg Capsule PO (08:05)
[2021-01-19] MEDS: FUROsemide 40 mg Tablet 80 MG PO (08:06)
[2021-01-19] MEDS: acetaminophen 325 mg Tablet PO (08:06)
[2021-01-19] MEDS: potassium chloride ER 20 mEq Tablet 40 MEQ PO (08:06)
[2021-01-19] MEDS: sennosides-docusate Tablet 1 TAB PO (08:06)
[2021-01-19] MEDS: pantoprazole DR 40 mg Tablet PO (08:07)
[2021-01-19 08:33] LABS: Uric Acid 13.2 mg/dL (2.4-5.7)
[2021-01-19] MEDS: ferric gluconate 125 MG in sodium chloride 0.9% (100 ml) 100 ML 110 MG IV (09:25)
[2021-01-19 12:00] VITALS: BP 108/63; PULSE 88; RESP 16; TEMP 37; O2SAT 98
--- NOTE | 2021-01-19 15:34 | DCPLANNER ---
Pg 2 of IM updated and reviewed with pt. she thinks she has 35 of them now and laughs. No questions, copy provided.
--- NOTE | 2021-01-19 16:32 | PC.NURSE ---
Late entry: 1515 patient discharged at this time in the care of transport. IV catheter removed, tip intact. Patient tolerated well. Patient discharged in stable condition.
[2021-01-19 16:43] VITALS: BP 108/63; PULSE 88; RESP 16; TEMP 37; O2SAT 98
== END 2021-01-19 15:15 | disposition skilled nursing facility (03) | DRG 553 ==
LOC: ER 01-06 01:22 → MEDSURG 01-06 02:21 → CSU 01-08 13:36 → MEDSURG 01-14 06:53
PROVIDERS: Hospitalist; Internal Medicine Nephrology; Admitting Provider Internal Medicine; Emergency Provider Nurse Practitioner Family; PCP Nurse Practitioner Family; Visit Provider Family Medicine
DX: M10.9 Gout, unspecified (principal); I50.43 Acute on chronic combined systolic (congestive) and diastolic (congestive) heart failure; J69.0 Pneumonitis due to inhalation of food and vomit; I48.20 Chronic atrial fibrillation, unspecified; N18.4 Chronic kidney disease, stage 4 (severe); I42.9 Cardiomyopathy, unspecified; N17.9 Acute kidney failure, unspecified; R04.2 Hemoptysis; E87.1 Hypo-osmolality and hyponatremia; I27.20 Pulmonary hypertension, unspecified; Z88.8 Allergy status to other drugs, medicaments and biological substances; W19.XXXA Unspecified fall, initial encounter; D50.9 Iron deficiency anemia, unspecified; I35.0 Nonrheumatic aortic (valve) stenosis; J44.9 Chronic obstructive pulmonary disease, unspecified; Z87.891 Personal history of nicotine dependence; B02.9 Zoster without complications; I95.2 Hypotension due to drugs; D63.1 Anemia in chronic kidney disease; N28.89 Other specified disorders of kidney and ureter
CPT/HCPCS: 36415; 36416; 51702; 51798; 71045; 71250; 73610; 73630; 74176; 76770; 80048; 80053; 81001; 82310; 82436; 82550; 82570; 82728; 82962; 83540; 83550; 83605; 83735; 83880; 83970; 84100; 84133; 84145; 84300; 84311; 84436; 84439; 84443; 84481; 84484; 84540; 84550; 85014; 85018; 85025; 85610; 85999; 86140; 86850; 86900; 87040; 87086; 93005; 93306; 93971; 96365; 96375; 97110; 97116; 97161; 97166; 97530; 97535; 99285; C8924; G0378; J0696; J0743; J1265; J1940; J2405; J2916; J2920; J3490; J7030; J7040; J7512; J8499; Q3014; Q9956

== ENCOUNTER 2021-01-27 16:52 | Outpatient (CLI) | payer OTHER, MEDICAID, SELFPAY ==
[2021-01-27 17:23] LABS: Hematocrit 32.3 % (37.0-47.0); Hemoglobin 9.6 g/dL (11.5-15.3); Mean Corpuscular HGB Conc 29.7 g/dL (30.0-36.0); Mean Corpuscular Volume 90.7 fL (81-99); Mean Platelet Volume 10.8 fL (7.4-10.4); Platelet Count 168 10^3/cmm (130-400); Red Blood Count 3.56 10^6/uL (4.1-5.3); Red Cell Distribution Width 25.2 % (12.1-15.1); White Blood Count 12.9 10^3/uL (4.0-10.0)
[2021-01-27 18:13] LABS: Absolute Neutrophil 12.6 10^3/cmm (1.4-6.5); Absolute Segmented Neutrophil 12.6 10/cmm (1.6-7.1); Eosinophils 0 %; Lymphocytes 2 %; Lymphocytes Absolute 0.3 10^3/cmm (1.2-3.4); Platelet Estimate Normal (Normal); Segmented Neutrophils 98 %; Total Cells Counted 100 (0-100)
[2021-01-27 18:47] LABS: Ferritin 335 ng/mL (15-150); Iron 66 ug/dL (37-145); Total Iron Binding Capacity 244 mcg/dl; Unsaturated Iron Binding 178 ug/dL (112-347)
== END 2021-01-27 16:53 | disposition home or self-care (01) ==
PROVIDERS: PCP Nurse Practitioner Family; Visit Provider Family Medicine
DX: D64.9 Anemia, unspecified (principal)
CPT/HCPCS: 82728; 83540; 83550; 85007; 85027

== ENCOUNTER 2021-01-30 13:51 | Inpatient (IN) | payer MEDICARE, MEDICAID, SELFPAY ==
[2021-01-30] VITALS (14 sets, daily range): BP systolic 94–145; BP diastolic 63–106; PULSE 94–123; RESP 16–24; TEMP 36.4–36.7; O2SAT 95–99; BMI 24.8
--- NOTE | 2021-01-30 14:36 | CTR_ITS ---
PROCEDURE INFORMATION: Exam: CT Abdomen And Pelvis Without Contrast Exam date and time: 01/30/2021 3:08 PM Age: 85 years old Clinical indication: Abdominal pain; Prior surgery; Surgery type: Hysto; Additional info: Gi bleed TECHNIQUE: Imaging protocol: Computed tomography of the abdomen and pelvis without contrast. Radiation optimization: All CT scans at this facility use at least one of these dose optimization techniques: automated exposure control; mA and/or kV adjustment per patient size (includes targeted exams where dose is matched to clinical indication); or iterative reconstruction. COMPARISON: CT abdomen pelvis wo con [id number] 01/07/2021 5:03 PM RADIATION DOSE METRICS: Total DLP (mGy-cm): 1037.95 FINDINGS: Pleural spaces: Stable mild left pleural fluid collection. Heart: Decreased pericardial fluid collection with minimal residual. Mild cardiomegaly. Mediastinal space: Stable moderate intrathoracic hiatal hernia. Liver: Normal. No mass. Gallbladder and bile ducts: Continued multiple gallstones within the gallbladder. Pancreas: Normal. No ductal dilation. Spleen: Calcified splenic granulomas. Adrenal glands: Normal. No mass. Kidneys and ureters: 4.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 Stomach and bowel: Severe colonic diverticulosis. Appendix: No evidence of appendicitis. Intraperitoneal space: Unremarkable. No free air. No significant fluid collection. Vasculature: Stable severe calcified coronary artery disease. Calcification of the abdominal aorta and/or iliac arteries consistent with atherosclerotic vessel disease. Lymph nodes: Unremarkable. No enlarged lymph nodes. Urinary bladder: Interval removal of the Escobar balloon catheter. Reproductive: Stable hysterectomy. Bones/joints: Dextroscoliosis. Severe multilevel spine degenerative changes including degenerative disc disease, spondylosis and facet degenerative changes. Soft tissues: Unremarkable. Other findings: Examination is limited secondary to motion artifact. IMPRESSION: 1. 4.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 2. Stable mild left pleural fluid collection. 3. Stable severe calcified coronary artery disease. 4. Stable moderate intrathoracic hiatal hernia. 5. Decreased pericardial fluid collection with minimal residual. 6. Mild cardiomegaly. COMMENTS: Consistent with the [employer]'s Incidental Findings Committee white paper (J Am Barbara Radiol 2018): Any incidental renal lesion less than 1 cm or classified as too small to characterize, or any incidental cystic renal lesion characterized as simple-appearing, is likely benign. No follow-up imaging is recommended for these lesions per consensus recommendations based on imaging criteria. CT/CT abdomen pelvis wo con [id number] Impression. Radiation Dose CTDIVOL = (mGy): DLP = 1037.95 (mGy-cm)
--- NOTE | 2021-01-30 14:36 | XRR_ITS ---
PROCEDURE INFORMATION: Exam: XR Chest Exam date and time: 01/30/2021 2:49 PM Age: 85 years old Clinical indication: Shortness of breath; Additional info: Reduced breath sounds TECHNIQUE: Imaging protocol: XR of the chest. Views: 1 view. COMPARISON: CR XR chest 1V portable [id number] 01/10/2021 6:14 AM FINDINGS: Lungs: Unremarkable. No consolidation. Pleural spaces: Unremarkable. No pleural effusion. No pneumothorax. Heart/Mediastinum: Unremarkable. No cardiomegaly. Vasculature: Calcification of the thoracic aorta and/or great vessels consistent with atherosclerotic vessel disease. Bones/joints: Levoscoliosis. XR/XR chest 1V portable [id number] IMPRESSION: No acute findings.
--- NOTE | 2021-01-30 14:37 | ECG_ITS ---
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1935 Requested By: Hugo Morris Order Number: [id number] Mera MD: ARABELLA SHAHID Measurements Intervals Victor Rate: 90 P: [place]: QRS: 167 QRSD: 113 T: 67 QT: 376 QTc: 462 Interpretive Statements ATRIAL FIBRILLATION POSSIBLE RIGHT VENTRICULAR HYPERTROPHY [SOME/ALL OF: PROMINENT R IN V1, LATE TRANSITION, RAD, TAMMY, SSS] POSSIBLE ANTERIOR MYOCARDIAL INFARCTION , OF INDETERMINATE AGE [30 ms Q WAVE IN V3/V4, OR R < 0.2 mV IN V4] Compared to ECG 01/17/2021 05:28:50 Aberrant conduction of supraventricular beat(s) no longer present Ventricular premature complex(es) no longer present Right-axis deviation no longer present Myocardial infarct finding still present Electronically Signed On 01-30-2021 22:23:15 CDT by ARABELLA SHAHID [id number]
--- NOTE | 2021-01-30 15:02 | ED_ITS ---
HPI - GI Bleed General: Chief complaint: GI Bleed Stated complaint: GI BLEED Time Seen by Provider: 01/30/21 14:14 History of Present Illness: HPI Narrative: The patient is an 85-year-old female with past medical history atrial fibrillation, COPD, congestive heart failure, CKD, atrial fibrillation, pulmonary hypertension, mild aortic stenosis. She comes to the ER from [facility] who reported that she is having dark stools. I phone call them and discussed her case and they said she is taking Eliquis and baby aspirin. This is contradictory from her discharge summary. She was supposed to have been discontinued on the Eliquis and the aspirin increased to 325 mg daily. She denies chest pain and shortness of breath today. No other complaints. Associated symptoms: Denies abdominal pain, headache(s) or rash Review of Systems General: Reports: 10 or more systems reviewed and unremarkable except in HPI and below Const: Denies: fatigue Eyes: Denies: change in vision, blurry vision or eye redness ENMT: Denies: throat pain, swelling of lips/tongue, ear or mastoid pain or nasal congestion Card: Denies: chest pain, palpitations, irregular heart rhythm, edema, dyspnea on exertion or orthopnea Resp: Denies: dyspnea, productive cough or non-productive cough GI: Reports: melena; Denies: abdominal pain, diarrhea or GI cramping : Denies: flank pain, difficulty voiding, urinary frequency or urinary urgency Musc: Denies: neck pain, back pain, extremity pain, joint pain, joint redness, limited range of motion or muscle weakness Skin/Breast: Denies: rash, pruritus, erythema, skin pain or skin tenderness Neuro: Denies: headache(s), numbness in extremities, weakness in extremities, sensory changes, difficulty walking, dizziness, confusion or Slurred speech present Psych: Denies: anxiety or depression Endo: Denies: polyuria All/Imm: Denies: urticaria, throat swelling or tongue swelling PFSH ED PFSH: Medical History LIZABETH inhibitor intolerance Anemia Aortic stenosis Mild Cardiomyopathy 35-40% CHF (congestive heart failure) Chronic kidney disease, stage 4 (severe) COPD (chronic obstructive pulmonary disease) Gout Left renal mass Paroxysmal A-fib Pulmonary hypertension Surgical History History of cardiac catheterization Hx of hysterectomy S/P bladder repair S/P hysterectomy Family History Mother CAD (coronary artery disease) Myocardial infarction Father CAD (coronary artery disease) Social History Smoking and tobacco status: former smoker Alcohol intake: never Marital status: / Current occupational status: retired Physical Exam Const: COMMON NORMALS: no acute distress, average body habitus, patient oriented x3, no limitations, healthy appearing, alert and well nourished GENERAL APPEARANCE: cooperative, comfortable, well kempt and well developed ORIENTATION/CONSCIOUSNESS: Yes awake, Yes oriented to person, Yes oriented to place and Yes oriented to time HENMT: COMMON NORMALS: normocephalic, external ears normal and Normal external nose present HEAD & SCALP: normal to inspection and normocephalic NOSE: Normal external nose present EXTERNAL EAR: Yes external ears normal MOUTH: Normal oral and palatal mucosa present THROAT: posterior oropharynx normal Eye: COMMON NORMALS: Equal, round and reactive pupils present and EOMs intact bilaterally GENERAL EYE: appearance normal, both eyes and all related structures PUPIL: Yes Equal, round and reactive pupils present Neck/C-Spine: COMMON NORMALS: full ROM, no lymphadenopathy, no meningeal signs and no JVD GENERAL: Yes normal visual inspection Lymph: LYMPHATIC: no lymphadenopathy noted Chest: COMMONS NORMALS: normal inspection of the chest and normal palpation of entire chest wall Resp: COMMON NORMALS: normal respiratory effort, No retractions, No use of accessory muscles, clear to auscultation bilaterally and percussion normal EFFORT & INSPECTION: Yes able to speak in complete sentences AUSCULTATION: clear to auscultation bilaterally PERCUSSION: percussion normal Cardio: COMMON NORMALS: no JVD, regular rate, regular rhythm, S1 normal heart sound present, S2 normal heart sound present and Peripheral pulses 2+ throughout RATE: regular rate RHYTHM: regular rhythm HEART SOUNDS: S1 normal heart sound present and S2 normal heart sound present PERIPHERAL PULSES: Peripheral pulses 2+ throughout GI: COMMON NORMALS: Normal to inspection, nondistended, normoactive bowel sounds present, Soft to palpation, non-tender and no masses INSPECTION: Yes normal to inspection PALPATION: Yes Soft to palpation OTHER: Dark tarry stool present. Occult blood positive. : COMMON NORMALS: Yes no CVA tenderness BLADDER/KIDNEY EXAM: Yes no CVA tenderness Back/Pelvis: COMMON NORMALS: no CVA tenderness, thoracic and lumbar spine normal to inspection, no thoracic nor lumbar tenderness and thoraco-lumbar ROM normal Extremity: COMMON NORMALS: normal to inspection, full ROM, capillary refill normal, no joint enlargement and no pedal edema GENERAL: Yes normal exam except as noted Neuro: COMMON NORMALS: patient oriented x3, CN's II-XII intact bilaterally, moves all extremities, no focal motor deficits, no sensory deficits noted and gait normal SENSORIUM/ORIENTATION: Yes alert, Yes oriented to person, Yes oriented to place and Yes oriented to time MENINGEAL SIGNS: Yes no meningeal signs Psych: COMMON NORMALS: mental status grossly normal, Normal thought process present, cooperative, normal affect and speech normal APPEARANCE: Yes well kempt ATTITUDE: Yes calm SPEECH: Yes normal speech THOUGHT PROCESS: Normal thought process present Skin: COMMON NORMALS: no rashes or lesions noted GENERAL SKIN EXAM: no rashes or lesions noted Course Vital Signs: Vital signs: Vital Signs Temperature 97.9 F 01/30/21 14:04 Pulse Rate 117 H 01/30/21 20:15 Respiratory Rate 18 01/30/21 20:15 Blood Pressure 135/106 01/30/21 20:15 Pulse Oximetry 98 01/30/21 20:15 MDM - GI Bleed MDM Narrative: Medical decision making narrative: The patient came in complaining of black stools. She was recently discharged for hemoptysis and CHF. On discharge her Eliquis was stopped and she was increased to 325 mg aspirin. She was seen by Dr. Bermeo in the clinic 4 days ago who started her Eliquis again. She has been having black stools since. I discussed with Dr. Wood her hemoglobin has also dropped to 8 in 4 days. Recommended keeping for observation and giving her 1 unit of blood transfusion as well as holding Eliquis. Discussed with who accepts for observation Lab Data: Labs: Lab Results 01/30/21 01/30/21 01/30/21 Range/Units 15:26 15:26 15:26 WBC 9.5 (4.0-10.0) 10^3/ uL RBC 2.95 L (4.1-5.3) 10^6/u L Hgb 8.0 L (11.5-15.3) g/dL Hct 27.2 L (37.0-47.0) % MCV 92.2 (81-99) fL MCH 27.1 L (28.0-34.0) pg MCHC 29.4 L (30.0-36.0) g/dL RDW 25.1 H (12.1-15.1) % Plt Count 141 (130-400) 10^3/c mm MPV 11.0 H (7.4-10.4) fL Neut % (Auto) 91.5 % Lymph % (Auto) 3.5 % [place] % (Auto) 4.6 % Eos % (Auto) 0.1 % Baso % (Auto) 0.0 % Neut # (Auto) 8.69 H (1.8-7.7) 10^3/u L Lymph # (Auto) 0.3 L (0.8-4.8) 10^3/u L [place] # (Auto) 0.4 (0.2-0.9) 10^3/u L Eos # (Auto) 0.0 (0.0-0.8) 10^3/u L Baso # (Auto) 0.0 (0.0-0.1) 10^3/u L Nucleated RBC % (a uto) 0 % Nucleated RBCs # 0.0 /100WBC D-Dimer <= 0.27 (0-0.59) ug/mIFE U Sodium 140 (136-145) mmol/L Potassium 4.3 (3.5-5.1) mmol/L Chloride 106 (98-107) mmol/L Carbon Dioxide 24 (22-29) mmol/L Anion Gap 14.3 (5-19) BUN 65 H (8-23) mg/dL Creatinine 1.6 H (0.5-0.9) mg/dL GFR Calculation Not Reportable Glucose 103 (65-115) mg/dL Calculated Osmolal ity 309 H (285-295) mOsm/k g Lactate (0.5-2.2) mmol/L Calcium 7.6 L (8.5-10.5) mg/dL Total Bilirubin 0.6 (0.15-1.2) mg/dL AST 23 (0-32) U/L ALT 39 H (0-33) U/L Alkaline Phosphata se 111 H (35-105) IU/L Troponin T Baselin e (0-10) ng/L Troponin T 120 Min [place] (0-10) ng/L Delta Troponin T (0-10) ABS# NT-Pro-B Natriuret Pep 2575 H (0-450) pg/mL Total Protein 5.2 L (6.6-8.7) g/dL Albumin 3.0 L (3.5-5.2) g/dL Globulin 2.2 (1.3-4.6) g/dL Urine Color (Yellow) Urine Appearance (CLEAR) Urine pH (5-7) Ur Specific Gravit y (1.005-1.030) Urine Protein (Negative) Urine Glucose (UA) (Normal) Urine Ketones (Negative) Urine Blood (Negative) Urine Nitrate (Negative) Urine Bilirubin (Negative) Urine Urobilinogen (Negative) mg/dL Ur Leukocyte Niki ase (Negative) Blood Type Rho(D) Type Antibody Screen Crossmatch 01/30/21 01/30/21 01/30/21 Range/Units 15:26 15:26 15:26 WBC (4.0-10.0) 10^3/ uL RBC (4.1-5.3) 10^6/u L Hgb (11.5-15.3) g/dL Hct (37.0-47.0) % MCV (81-99) fL MCH (28.0-34.0) pg MCHC (30.0-36.0) g/dL RDW (12.1-15.1) % Plt Count (130-400) 10^3/c mm MPV (7.4-10.4) fL Neut % (Auto) % Lymph % (Auto) % [place] % (Auto) % Eos % (Auto) % Baso % (Auto) % Neut # (Auto) (1.8-7.7) 10^3/u L Lymph # (Auto) (0.8-4.8) 10^3/u L [place] # (Auto) (0.2-0.9) 10^3/u L Eos # (Auto) (0.0-0.8) 10^3/u L Baso # (Auto) (0.0-0.1) 10^3/u L Nucleated RBC % (a uto) % Nucleated RBCs # /100WBC D-Dimer (0-0.59) ug/mIFE U Sodium (136-145) mmol/L Potassium (3.5-5.1) mmol/L Chloride (98-107) mmol/L Carbon Dioxide (22-29) mmol/L Anion Gap (5-19) BUN (8-23) mg/dL Creatinine (0.5-0.9) mg/dL GFR Calculation Glucose (65-115) mg/dL Calculated Osmolal ity (285-295) mOsm/k g Lactate 2.0 (0.5-2.2) mmol/L Calcium (8.5-10.5) mg/dL Total Bilirubin (0.15-1.2) mg/dL AST (0-32) U/L ALT (0-33) U/L Alkaline Phosphata se (35-105) IU/L Troponin T Baselin e 69 H (0-10) ng/L Troponin T 120 Min [place] (0-10) ng/L Delta Troponin T (0-10) ABS# NT-Pro-B Natriuret Pep (0-450) pg/mL Total Protein (6.6-8.7) g/dL Albumin (3.5-5.2) g/dL Globulin (1.3-4.6) g/dL Urine Color (Yellow) Urine Appearance (CLEAR) Urine pH (5-7) Ur Specific Gravit y (1.005-1.030) Urine Protein (Negative) Urine Glucose (UA) (Normal) Urine Ketones (Negative) Urine Blood (Negative) Urine Nitrate (Negative) Urine Bilirubin (Negative) Urine Urobilinogen (Negative) mg/dL Ur Leukocyte Niki ase (Negative) Blood Type O Positive Rho(D) Type Positive / 4+ Antibody Screen Negative Crossmatch See Detail 01/30/21 01/30/21 Range/Units 15:56 17:28 WBC (4.0-10.0) 10^3/ uL RBC (4.1-5.3) 10^6/u L Hgb (11.5-15.3) g/dL Hct (37.0-47.0) % MCV (81-99) fL MCH (28.0-34.0) pg MCHC (30.0-36.0) g/dL RDW (12.1-15.1) % Plt Count (130-400) 10^3/c mm MPV (7.4-10.4) fL Neut % (Auto) % Lymph % (Auto) % [place] % (Auto) % Eos % (Auto) % Baso % (Auto) % Neut # (Auto) (1.8-7.7) 10^3/u L Lymph # (Auto) (0.8-4.8) 10^3/u L [place] # (Auto) (0.2-0.9) 10^3/u L Eos # (Auto) (0.0-0.8) 10^3/u L Baso # (Auto) (0.0-0.1) 10^3/u L Nucleated RBC % (a uto) % Nucleated RBCs # /100WBC D-Dimer (0-0.59) ug/mIFE U Sodium (136-145) mmol/L Potassium (3.5-5.1) mmol/L Chloride (98-107) mmol/L Carbon Dioxide (22-29) mmol/L Anion Gap (5-19) BUN (8-23) mg/dL Creatinine (0.5-0.9) mg/dL GFR Calculation Glucose (65-115) mg/dL Calculated Osmolal ity (285-295) mOsm/k g Lactate (0.5-2.2) mmol/L Calcium (8.5-10.5) mg/dL Total Bilirubin (0.15-1.2) mg/dL AST (0-32) U/L ALT (0-33) U/L Alkaline Phosphata se (35-105) IU/L Troponin T Baselin e (0-10) ng/L Troponin T 120 Min [place] 65.83 H (0-10) ng/L Delta Troponin T -3.17 L (0-10) ABS# NT-Pro-B Natriuret Pep (0-450) pg/mL Total Protein (6.6-8.7) g/dL Albumin (3.5-5.2) g/dL Globulin (1.3-4.6) g/dL Urine Color Straw (Yellow) Urine Appearance Clear (CLEAR) Urine pH 5 (5-7) Ur Specific Gravit y 1.005 (1.005-1.030) Urine Protein Neg (Negative) Urine Glucose (UA) Norm (Normal) Urine Ketones Negative (Negative) Urine Blood Neg (Negative) Urine Nitrate Negative (Negative) Urine Bilirubin Neg (Negative) Urine Urobilinogen Norm (Negative) mg/dL Ur Leukocyte Niki ase Negative (Negative) Blood Type Rho(D) Type Antibody Screen Crossmatch Discharge Plan Discharge Patient Disposition: Placed in Observation Admit Provider: Chava Eduardo Clinical Impression: Melena, Anemia Coding Level of Care Code ED 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
[2021-01-30 15:36] LABS: Eosinophils % 0.1 %; Hematocrit 27.2 % (37.0-47.0); Lymphocytes # 0.3 10^3/uL (0.8-4.8); Lymphocytes % 3.5 %; Mean Corpuscular HGB Conc 29.4 g/dL (30.0-36.0); Mean Corpuscular Hemoglobin 27.1 pg (28.0-34.0); Mean Corpuscular Volume 92.2 fL (81-99); Monocytes # 0.4 10^3/uL (0.2-0.9); Monocytes % 4.6 %; Neutrophils # 8.69 10^3/uL (1.8-7.7); Neutrophils % 91.5 %; Nucleated Red Blood Cells % 0 %; Platelet Count 141 10^3/cmm (130-400); Red Blood Count 2.95 10^6/uL (4.1-5.3); Red Cell Distribution Width 25.1 % (12.1-15.1); White Blood Count 9.5 10^3/uL (4.0-10.0)
[2021-01-30 15:55] LABS: D Dimer <= 0.27 ug/mIFEU (0-0.59)
[2021-01-30 15:57] LABS: Troponin(5th) Baseline 69 ng/L (0-10)
[2021-01-30 16:06] LABS: Alanine Aminotransferase 39 U/L (0-33); Alkaline Phosphatase 111 IU/L (35-105); Anion Gap 14.3 (5-19); Aspartate Amino Transferase 23 U/L (0-32); Blood Urea Nitrogen 65 mg/dL (8-23); Calcium 7.6 mg/dL (8.5-10.5); Carbon Dioxide 24 mmol/L (22-29); Chloride 106 mmol/L (98-107); Globulin 2.2 g/dL (1.3-4.6); Glucose 103 mg/dL (65-115); NT Pro B Type Natriuretic Pept 2575 pg/mL (0-450); Osmolality Calculated 309 mOsm/kg (285-295); Potassium 4.3 mmol/L (3.5-5.1); Sodium 140 mmol/L (136-145); Total Bilirubin 0.6 mg/dL (0.15-1.2); Total Protein 5.2 g/dL (6.6-8.7)
[2021-01-30 16:15] LABS: Add Urine Microscopic? NO; Charge for UA Resulting for Rev
[2021-01-30 16:23] LABS: Bilirubin Urine Neg (Negative); Blood Urine Neg (Negative); Glucose Urine UA Norm (Normal); Ketones Urine Negative (Negative); Leukocyte Esterase Urine Negative (Negative); Nitrate Urine Negative (Negative); Protein Urine Neg (Negative); Specific Gravity, Urine 1.005 (1.005-1.030); Urine Appearance Clear (CLEAR); Urine Color Straw (Yellow); Urobilinogen Urine Norm (Negative); pH Urine 5 (5-7)
--- NOTE | 2021-01-30 16:37 | ECG_ITS ---
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1935 Requested By: Hugo Morris Order Number: [id number] Mera MD: ARABELLA SHAHID Measurements Intervals Bradley Rate: 94 P: UT: QRS: 180 QRSD: 121 T: 80 QT: 372 QTc: 466 Interpretive Statements ATRIAL FIBRILLATION POSSIBLE RIGHT VENTRICULAR HYPERTROPHY [SOME/ALL OF: PROMINENT R IN V1, LATE TRANSITION, RAD, TAMMY, SSS] ANTEROSEPTAL MYOCARDIAL INFARCTION , OF INDETERMINATE AGE [40+ ms Q WAVE IN V1-V4] Compared to ECG 01/30/2021 15:10:11 No significant changes Electronically Signed On 01-30-2021 22:26:27 CDT by ARABELLA SHAHID [id number]
[2021-01-30 17:56] LABS: Troponin 5 2HR 65.83 ng/L (0-10)
[2021-01-30 18:02] LABS: Troponin 5 2HR Delta -3.17 ABS# (0-10)
--- NOTE | 2021-01-30 19:19 | P.HP_ITS ---
Providers/Chief Complaint Chief Complaint: GI BLEED History of Present Illness Janelle Riley is a 85 year old female with a past medical history of systolic heart failure, COPD, moderate pulmonary hypertension, paroxysmal A. fib, aortic stenosis, chronic anemia, was recently discharged from the hospital after management of A. fib RVR, CHF exacerbation, SHAQUILLE, and, gout flareup, her Eliquis was held secondary to recurrent episodes of hemoptysis at the time of discharge hemoglobin was 8.5, recently followed up with Dr. Bermeo who resumed Eliquis considering stable hemoglobin presented today with chief complaint of generalized weakness and lethargy and melanotic stools. Patient is stating that her symptoms started on Sunday which she describing as bright bleed per rectum, it has gotten worse today, today she had a bowel movement with gush of fresh blood. She has been feeling extremely tired and lethargic, no active abdominal pain chest pain nausea or vomiting. She was asked to come to the ER for further evaluation. Diagnostics in the ER revealed hemoglobin of 8, Dr. Wood recommended a unit of blood. Dr. Stewart has been consulted and notified. When I evaluated her heart rate was A. fib RVR 127 requested ER to push 10 mg of Cardizem IV, she will be kept n.p.o. after midnight Review of Systems Const: Denies: fever(s) Eyes: Denies: change in vision ENMT: Denies: throat pain Card: Reports: irregular heart rhythm and dyspnea on exertion; Denies: chest pain Resp: Reports: dyspnea GI: Reports: hematochezia; Denies: abdominal pain : Denies: flank pain Musc: Denies: neck pain Skin/Breast: Denies: rash Neuro: Denies: headache(s) Psych: Denies: anxiety Endo: Denies: polyuria Paul/Lymph: Denies: easy bruising All/Imm: Denies: urticaria Medications/Allergies Home Medications Medication Instructions Recorded Confirmed Last Taken Type apixaban 2.5 mg tablet 2.5 mg PO BID@08,12/17/19 01/30/21 01/30/21 History pantoprazole 40 mg tablet,delayed 40 mg PO BID@08,12/17/19 01/30/21 01/30/21 History release acetaminophen 325 mg tablet 325 mg PO QID PRN 04/01/30/21 01/30/21 07:30 History 650 MG diltiazem HCl [Cardizem LA] 120 mg PO Q12H 30 Days #60 tab 01/18/21 01/30/21 01/30/21 Rx furosemide 80 mg PO DAILY@0800 30 Days #60 tab 01/18/21 01/30/21 01/30/21 Rx aspirin 325 mg PO DAILY@0800 01/30/21 01/30/21 01/30/21 History atorvastatin 40 mg PO BEDTIME@199901/30/21 01/30/21 01/29/21 History bisacodyl [Dulcolax (bisacodyl)] 10 mg [place] DAILY PRN 01/30/21 01/30/21 Unknown History docusate sodium [DOK] 100 mg PO BID@0800,199901/30/21 01/30/21 01/30/21 History potassium chloride [Klor-Con M20] 40 meq PO DAILY@0800 01/30/21 01/30/21 01/30/21 History prednisone 40 mg PO DAILY@0800 01/30/21 01/30/21 01/30/21 History sevelamer carbonate 800 mg PO DAILY@1700 01/30/21 01/30/21 01/29/21 History sucralfate [Carafate] 1 g PO BID@0800,199901/30/21 01/30/21 01/30/21 History Allergies Allergy/AdvReac Type Severity Reaction Status Date / Time allopurinol Allergy Severe rash, Verified 01/05/21 23:14 excoriation of skin amiodarone Allergy Intermediate rash Verified 01/05/21 23:14 digoxin Allergy Unknown Unknown Verified 01/05/21 22:55 lisinopril Allergy Unknown Unknown Verified 01/05/21 22:55 milk Allergy Unknown Unknown Verified 01/05/21 22:55 Penicillins Allergy Unknown Unknown Verified 01/05/21 22:55 PFSH Acute PFSH: Medical History LIZABETH inhibitor intolerance Anemia Aortic stenosis Mild Cardiomyopathy 35-40% CHF (congestive heart failure) Chronic kidney disease, stage 4 (severe) COPD (chronic obstructive pulmonary disease) Gout Left renal mass Paroxysmal A-fib Pulmonary hypertension Surgical History History of cardiac catheterization Hx of hysterectomy S/P bladder repair S/P hysterectomy Family History Mother CAD (coronary artery disease) Myocardial infarction Father CAD (coronary artery disease) Social History Smoking and tobacco status: former smoker Alcohol intake: never Marital status: / Current occupational status: retired Vitals/I&O/Wt Last Vital Signs Temp 97.9 F 01/30/21 14:04 Pulse 102 H 01/30/21 18:36 Resp 20 H 01/30/21 18:36 BP 128/76 01/30/21 18:36 Pulse Ox 97 01/30/21 18:36 Weight last 48 hrs Weight 61.689 kg Physical Exam Narrative: EXAM NARRATIVE: Very pleasant elderly female Was sitting in her bed without any active chest pain abdominal pain or shortness of breath Hypertensive, A. fib RVR heart rate 127 S1, S2 variable, no murmur appreciated no active signs of fluid overload Bilateral breath sounds without adventitious rhonchi or crackles Abdomen soft nontender, nondistended EOMI, PERRLA GCS 15 Awake alert oriented x3 No neurological deficits Lower extremities have wrinkled skin, multiple petechia purpura, very tender to touch, even slightest bit of touch with elicit pain, gouty arthritis Data : 01/30/21 15:26 01/30/21 15:26 A&P Assessment and plan (1) Hematochezia due to medication: Status: Acute (2) Left renal mass: Status: Acute (3) Hemoptysis: Status: Acute (4) Aortic stenosis: Status: Chronic Qualifiers: Cardiac valve disease etiology: nonrheumatic Qualified Code(s): I35.0 - Nonrheumatic aortic (valve) stenosis (5) Cardiomyopathy: Status: Chronic Qualifiers: Cardiomyopathy type: dilated Qualified Code(s): I42.0 - Dilated cardiomyopathy (6) Pulmonary hypertension: Status: Chronic Additional A&P Information Active hematochezia Acute on chronic normocytic anemia secondary to GI blood loss Patient endorsing starting Eliquis, symptoms of bright bleed per rectum started on Sunday currently hemodynamically stable, hypertensive with A. fib RVR no active abdominal pain chest pain or shortness of breath no recent hemoptysis N.p.o. after midnight 1 unit PRBC requested, last hemoglobin 8.5 current hemoglobin is 8, normocytic anemia Protonix 40 IV twice daily with sucralfate Hold aspirin and Eliquis No leukocytosis lactic acid normal mesenteric ischemia less likely Dr. Stewart consulted Gouty arthritis: Cannot use ketorolac because of her chronic kidney disease, with recent hematochezia I would avoid colchicine unfortunately only option right now is use of steroids, I would not start allopurinol during acute gout flareup Uric acid 13.2, she will definitely benefit from allopurinol which will be added after her acute episode subsides, she is also on Lasix which I would hold for now Left renal mass: Follows with Dr. Samson, he recommended follow-up in 3 months Mild aortic stenosis: No active chest pain, recent syncopal event Moderate pulmonary hypertension does not use oxygen at home Target hemoglobin level above 8 Mild reduced ejection fraction heart failure without acute exacerbation N.p.o. after midnight Full code DVT prophylaxis contraindicated would use SCDs Attestations Medical Necessity Statement*: Anticipating discharge in less than 48 hours will need endoscopy for her hematochezia secondary to Eliquis use Time Spent in Patient Care: (>than 50% of time spent in counselling and/or direct pt care on unit) . 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
[2021-01-30] MEDS: pantoprazole 40 mg SDV IVP (21:28)
[2021-01-30] MEDS: atorvastatin 40 mg Tablet PO (23:09)
[2021-01-30] MEDS: dilTIAZem ER (24HR) 120 mg Capsule PO (23:09)
[2021-01-30] MEDS: sucralfate 1 gm Tablet PO (23:09)
[2021-01-31] VITALS (10 sets, daily range): BP systolic 112–142; BP diastolic 71–87; PULSE 91–117; RESP 16–20; TEMP 36.4–36.6; O2SAT 92–99
--- NOTE | 2021-01-31 00:40 | PC.NURSE ---
PRBC finished early due to an infusion rate of 240mls/hr when pt arrived to floor from ER. Transfusion was then decreased to 150mls/hr.
[2021-01-31 04:52] LABS: Hematocrit 31.3 % (37.0-47.0); Hemoglobin 9.8 g/dL (11.5-15.3); Lymphocytes # 0.4 10^3/uL (0.8-4.8); Lymphocytes % 4.8 %; Mean Corpuscular HGB Conc 31.3 g/dL (30.0-36.0); Mean Corpuscular Hemoglobin 28.4 pg (28.0-34.0); Mean Corpuscular Volume 90.7 fL (81-99); Mean Platelet Volume 10.9 fL (7.4-10.4); Monocytes # 0.1 10^3/uL (0.2-0.9); Monocytes % 1.4 %; Neutrophils # 7.77 10^3/uL (1.8-7.7); Neutrophils % 93.4 %; Nucleated Red Blood Cells % 0 %; Platelet Count 120 10^3/cmm (130-400); Red Blood Count 3.45 10^6/uL (4.1-5.3); Red Cell Distribution Width 22.5 % (12.1-15.1); White Blood Count 8.3 10^3/uL (4.0-10.0)
[2021-01-31 05:14] LABS: Anion Gap 13.2 (5-19); Blood Urea Nitrogen 55 mg/dL (8-23); Calcium 8.1 mg/dL (8.5-10.5); Carbon Dioxide 26 mmol/L (22-29); Chloride 108 mmol/L (98-107); Glucose 142 mg/dL (65-115); Osmolality Calculated 314 mOsm/kg (285-295); Potassium 4.2 mmol/L (3.5-5.1); Sodium 143 mmol/L (136-145)
--- NOTE | 2021-01-31 06:56 | P.CONIM_ITS ---
Providers/Reason For Consult Consulting Physican/Specialty*: General Surgery Benji Stewart MD Reason for Consult*: Reported melanotic stool, anemia. Attending Physician: Chava Eduardo MD History of Present Illness History of Present Illness Janelle Riley is a 85 year old female admitted yesterday with what has been reported as melanotic stool. The patient's recent history goes back a couple of weeks when she was hospitalized and was apparently found to be anemic. Among other medical issues, I believe she was found to have some melanotic stool at that time. She was eventually discharged with a hemoglobin around 8.5 and plans were made for her to have an outpatient EGD with Dr. Cali in about a month. She had been on Eliquis and that was held, but she saw Dr. Gamez in cardiology this past week and he restarted it. She reportedly started having melanotic stool again. Her hemoglobin was found to be around 8.0. The patient cannot tell me what her stools look like; I have heard reports that she had bright red blood in her stool but both the emergency department physician yesterday and nursing this morning report melanotic stool changes instead. She does report being started on oral iron. The patient denies abdominal pain. She denies heartburn. She has had weakness and lethargy. She has no known history of peptic ulcer disease. She denies any regular NSAID use other than a daily aspirin. It appears that she is on Protonix and sucralfate, but I think these may be recent medication additions. Review of Systems General: Reports: 10 or more systems reviewed and unremarkable except in HPI and below Const: Reports: fatigue; Denies: fever(s) GI: Reports: melena; Denies: abdominal pain or vomiting Meds/Allergies Home Medications and Allergies Home Medications Medication Instructions Recorded Confirmed Last Taken Type apixaban 2.5 mg tablet 2.5 mg PO BID@,12/17/19 01/30/21 01/30/21 History pantoprazole 40 mg tablet,delayed 40 mg PO BID@,12/17/19 01/30/21 01/30/21 History release acetaminophen 325 mg tablet 325 mg PO QID PRN 01/14/20 01/30/21 01/30/21 07:30 History 650 MG diltiazem HCl [Cardizem LA] 120 mg PO Q12H 30 Days #60 tab 01/18/21 01/30/21 01/30/21 Rx furosemide 80 mg PO DAILY@0800 30 Days #60 tab 01/18/21 01/30/21 01/30/21 Rx aspirin 325 mg PO DAILY@0800 01/30/21 01/30/21 01/30/21 History atorvastatin 40 mg PO BEDTIME@199901/30/21 01/30/21 01/29/21 History bisacodyl [Dulcolax (bisacodyl)] 10 mg [place] DAILY PRN 01/30/21 01/30/21 Unknown History docusate sodium [DOK] 100 mg PO BID@0800,199901/30/21 01/30/21 01/30/21 History potassium chloride [Klor-Con M20] 40 meq PO DAILY@0800 01/30/21 01/30/21 01/30/21 History prednisone 40 mg PO DAILY@0800 01/30/21 01/30/21 01/30/21 History sevelamer carbonate 800 mg PO DAILY@17001/30/21 01/30/21 01/29/21 History sucralfate [Carafate] 1 g PO BID@0800,199901/30/21 01/30/21 01/30/21 History Allergies Allergy/AdvReac Type Severity Reaction Status Date / Time allopurinol Allergy Severe rash, Verified 01/05/21 23:14 excoriation of skin amiodarone Allergy Intermediate rash Verified 01/05/21 23:14 digoxin Allergy Unknown Unknown Verified 01/05/21 22:55 lisinopril Allergy Unknown Unknown Verified 01/05/21 22:55 milk Allergy Unknown Unknown Verified 01/05/21 22:55 Penicillins Allergy Unknown Unknown Verified 01/05/21 22:55 Current Medications Current Medications Generic Name Dose Route Start Last Admin Trade Name Freq PRN Reason Stop Dose Admin Atorvastatin Calcium 40 mg 01/30/21 22:25 01/30/21 23:09 Atorvastatin 40 Mg Tablet PO 40 mg BEDTIME@1999 RITA Administration Diltiazem HCl 120 mg 01/30/21 22:25 01/30/21 23:09 Diltiazem Er (24hr) 120 Mg Capsule PO 120 mg Q12H RITA Administration Methylprednisolone Sodium Succinate 30 mg 01/30/21 22:25 01/30/21 23:09 Methylprednisolone Sod Succ 40 Mg/Ml Inj IVP 30 mg Q12H RITA Administration Sucralfate 1 gm 01/30/21 22:25 01/30/21 23:09 Sucralfate 1 Gm Tablet PO 1 gm BID@0800,1999 RITA Administration PFSH Acute PFSH: Medical History LIZABETH inhibitor intolerance Anemia Aortic stenosis Mild Cardiomyopathy 35-40% CHF (congestive heart failure) Chronic kidney disease, stage 4 (severe) COPD (chronic obstructive pulmonary disease) Gout Left renal mass Paroxysmal A-fib Pulmonary hypertension Surgical History (Updated 01/31/21 @ 07:06 by Benji Stewart MD) History of cardiac catheterization History of cataract surgery Bilateral S/P bladder repair Bladder suspension S/P hysterectomy / BSO Family History Mother CAD (coronary artery disease) Myocardial infarction Father CAD (coronary artery disease) Social History (Updated 01/31/21 @ 07:06 by Benji Stewart MD) Smoking and tobacco status: former smoker Quit status (tobacco): has quit using tobacco Year quit tobacco: 1999 Former quit date comment: [id number] history prior to quitting Alcohol intake: never Marital status: / Current occupational status: retired Vitals/I&O/Wt Last Vital Signs Temp 97.8 F 01/31/21 03:28 Pulse 115 H 01/31/21 03:28 Resp 20 H 01/31/21 03:28 BP 119/75 01/31/21 03:28 Pulse Ox 92 01/31/21 03:28 01/30/21 01/30/21 01/31/21 14:59 22:59 06:59 Intake Total 0 / 350 350 / 350 Balance 0 / 350 350 / 350 Weight last 48 hrs Weight 136 lb Physical Exam Narrative: EXAM NARRATIVE: The patient was encountered in her hospital room. She is alert and does not appear to be in any distress. The pupils seem equal. No carotid bruits are heard. The lungs are clear anteriorly. The heart is irregularly irregular and her heart rate may be slightly tachycardic. The abdomen is soft and has good bowel sounds. She does not have any appreciable tenderness and no obvious masses are palpated. The extremities may reveal some very mild edema. Neurologically the patient appears to be grossly intact. A&P Assessment and plan (1) Melena: Melanotic stool has been reported. The patient is on iron, however. If I am looking at her laboratory studies correctly she may have heme positive stool. She was scheduled have an EGD done as an outpatient but since this is her second admission within a month, I have been asked to discuss it with her prior to that. We discussed esophagogastroduodenoscopy in some detail. Risks of the procedure were gone over. The patient seems to understand and is agreeable to proceeding with an EGD this morning. The patient will be kept n.p.o. and I will make arrangements for an EGD later this morning. Status: Acute (2) Anemia: The patient has been transfused and now has a hemoglobin of 9.8. Status: Acute Consult Attestations Medical Necessity Statement: See admitting service's notation. Coding Level of Care Code Acute Assistant Service Manager for [facility] Patricio Diagnoses Melena K92.1 Anemia D64.9
[2021-01-31] MEDS: sodium chloride 0.9% 1,000 ML 30 ML IV (10:23)
--- NOTE | 2021-01-31 12:32 | P.ANESASSM_ITS ---
Pre-Anesthetic Assessment Pre-Anesthetic Assessment: Height/Weight: Height 1.57 m Weight 61.689 kg Temp Pulse Resp BP Pulse Ox 97.5 F L 99 16 130/84 94 01/31/21 08:00 01/31/21 10:20 01/31/21 10:20 01/31/21 08:00 01/31/21 10:20 Proposed Procedure: Operation Date: 01/31/21 11:30 Proposed Procedures p EGD(Not Applicable) - Benji Stewart MD Was Beta Abebe taken within 24 hours: N/A Was Clonidine taken within 24 hours: N/A Social: Social History: Tobacco (h/o smoking) and No alcohol Exam: Pre-Anes Outpt Exam: alert and oriented x 3 Additional Exam Findings (including area of procedure): Irr, tachy Airway: Submandibular: WNL Cervical ROM: WNL MP: 2 Dentition: False Pulmonary: Pulmonary: COPD CV/HEM: CV/HEM: Anemia, CAD, CHF, HTN and Murmur (, pulmHTN) Anesthetic Plan: ASA status: 3 Anesthesia: MAC Risk of > 500 ml blood loss (7ml/kg in children): No Meds/Allergies Current Medications: Current Medications Generic Name Dose Route Start Last Admin Trade Name Freq PRN Reason Stop Dose Admin Atorvastatin Calci um 40 mg 01/30/21 22:25 01/30/21 23:09 Atorvastatin 40 Mg Tablet PO 40 mg BEDTIME@1999 RITA Administration Diltiazem HCl 120 mg 01/30/21 22:25 01/30/21 23:09 Diltiazem Er (24 hr) 120 Mg Capsule PO 120 mg Q12H RITA Administration Sodium Chloride 1,000 mls @ 30 ml s/hr 01/31/21 09:45 01/31/21 10:23 Sodium Chloride 0.9% IV 02/01/21 09:44 30 mls/hr .Q24H RITA Administration Methylprednisolone Sodium Succinate 30 mg 01/30/21 22:25 01/30/21 23:09 Methylprednisolo ne Sod Succ 40 Mg/ Ml Inj IVP 30 mg Q12H RITA Administration Sucralfate 1 gm 01/30/21 22:25 01/30/21 23:09 Sucralfate 1 Gm Tablet PO 1 gm BID@0800,1999 RITA Administration PFSH Anesthesia 2 PFSH: Medical History LIZABETH inhibitor intolerance Anemia Aortic stenosis Mild Cardiomyopathy 35-40% CHF (congestive heart failure) Chronic kidney disease, stage 4 (severe) COPD (chronic obstructive pulmonary disease) Gout Left renal mass Paroxysmal A-fib Pulmonary hypertension Surgical History (Updated 01/31/21 @ 07:06 by Benji Stewart MD) History of cardiac catheterization History of cataract surgery Bilateral S/P bladder repair Bladder suspension S/P hysterectomy / BSO Family History Mother CAD (coronary artery disease) Myocardial infarction Father CAD (coronary artery disease) Social History (Updated 01/31/21 @ 07:06 by Benji Stewart MD) Smoking and tobacco status: former smoker Quit status (tobacco): has quit using tobacco Year quit tobacco: 1999 Former quit date comment: [id number] history prior to quitting Alcohol intake: never Marital status: / Current occupational status: retired Data Anesthesia CBC & Chem 7: 01/31/21 04:38 01/31/21 04:38 Other Labs: Laboratory Results - last 48 hr 01/30/21 01/30/21 01/30/21 15:26 15:26 15:26 WBC 9.5 RBC 2.95 L Hgb 8.0 L Hct 27.2 L MCV 92.2 MCH 27.1 L MCHC 29.4 L RDW 25.1 H Plt Count 141 MPV 11.0 H Neut % (Auto) 91.5 Lymph % (Auto) 3.5 [place] % (Auto) 4.6 Eos % (Auto) 0.1 Baso % (Auto) 0.0 Neut # (Auto) 8.69 H Lymph # (Auto) 0.3 L [place] # (Auto) 0.4 Eos # (Auto) 0.0 Baso # (Auto) 0.0 Nucleated RBC % (auto) 0 Nucleated RBCs # 0.0 D-Dimer <= 0.27 Sodium 140 Potassium 4.3 Chloride 106 Carbon Dioxide 24 Anion Gap 14.3 BUN 65 H Creatinine 1.6 H GFR Calculation Not Reportable Glucose 103 Calculated Osmolality 309 H Lactate Calcium 7.6 L Total Bilirubin 0.6 AST 23 ALT 39 H Alkaline Phosphatase 111 H Troponin T Baseline Troponin T 120 Minute Delta Troponin T NT-Pro-B Natriuret Pep 2575 H Total Protein 5.2 L Albumin 3.0 L Globulin 2.2 Urine Color Urine Appearance Urine pH Ur Specific [place] Urine Protein Urine Glucose (UA) Urine Ketones Urine Blood Urine Nitrate Urine Bilirubin Urine Urobilinogen Ur Leukocyte Esterase Blood Type Rho(D) Type Antibody Screen Crossmatch 01/30/21 01/30/21 01/30/21 15:26 15:26 15:26 WBC RBC Hgb Hct MCV MCH MCHC RDW Plt Count MPV Neut % (Auto) Lymph % (Auto) [place] % (Auto) Eos % (Auto) Baso % (Auto) Neut # (Auto) Lymph # (Auto) [place] # (Auto) Eos # (Auto) Baso # (Auto) Nucleated RBC % (auto) Nucleated RBCs # D-Dimer Sodium Potassium Chloride Carbon Dioxide Anion Gap BUN Creatinine GFR Calculation Glucose Calculated Osmolality Lactate 2.0 Calcium Total Bilirubin AST ALT Alkaline Phosphatase Troponin T Baseline 69 H Troponin T 120 Minute Delta Troponin T NT-Pro-B Natriuret Pep Total Protein Albumin Globulin Urine Color Urine Appearance Urine pH Ur Specific [place] Urine Protein Urine Glucose (UA) Urine Ketones Urine Blood Urine Nitrate Urine Bilirubin Urine Urobilinogen Ur Leukocyte Esterase Blood Type O Positive Rho(D) Type Positive / 4+ Antibody Screen Negative Crossmatch See Detail 01/30/21 01/30/21 01/31/21 15:56 17:28 04:38 WBC 8.3 RBC 3.45 L Hgb 9.8 L Hct 31.3 L MCV 90.7 MCH 28.4 MCHC 31.3 D RDW 22.5 H Plt Count 120 L MPV 10.9 H Neut % (Auto) 93.4 Lymph % (Auto) 4.8 [place] % (Auto) 1.4 Eos % (Auto) 0.0 Baso % (Auto) 0.0 Neut # (Auto) 7.77 H Lymph # (Auto) 0.4 L [place] # (Auto) 0.1 L Eos # (Auto) 0.0 Baso # (Auto) 0.0 Nucleated RBC % (auto) 0 Nucleated RBCs # 0.0 D-Dimer Sodium Potassium Chloride Carbon Dioxide Anion Gap BUN Creatinine GFR Calculation Glucose Calculated Osmolality Lactate Calcium Total Bilirubin AST ALT Alkaline Phosphatase Troponin T Baseline Troponin T 120 Minute 65.83 H Delta Troponin T -3.17 L NT-Pro-B Natriuret Pep Total Protein Albumin Globulin Urine Color Straw Urine Appearance Clear Urine pH 5 Ur Specific [place] 1.005 Urine Protein Neg Urine Glucose (UA) Norm Urine Ketones Negative Urine Blood Neg Urine Nitrate Negative Urine Bilirubin Neg Urine Urobilinogen Norm Ur Leukocyte Esterase Negative Blood Type Rho(D) Type Antibody Screen Crossmatch 01/31/21 04:38 WBC RBC Hgb Hct MCV MCH MCHC RDW Plt Count MPV Neut % (Auto) Lymph % (Auto) [place] % (Auto) Eos % (Auto) Baso % (Auto) Neut # (Auto) Lymph # (Auto) [place] # (Auto) Eos # (Auto) Baso # (Auto) Nucleated RBC % (auto) Nucleated RBCs # D-Dimer Sodium 143 Potassium 4.2 Chloride 108 H Carbon Dioxide 26 Anion Gap 13.2 BUN 55 H Creatinine 1.6 H GFR Calculation Not Reportable Glucose 142 H Calculated Osmolality 314 H Lactate Calcium 8.1 L Total Bilirubin AST ALT Alkaline Phosphatase Troponin T Baseline Troponin T 120 Minute Delta Troponin T NT-Pro-B Natriuret Pep Total Protein Albumin Globulin Urine Color Urine Appearance Urine pH Ur Specific [place] Urine Protein Urine Glucose (UA) Urine Ketones Urine Blood Urine Nitrate Urine Bilirubin Urine Urobilinogen Ur Leukocyte Esterase Blood Type Rho(D) Type Antibody Screen Crossmatch Cardiac Studies: Echocardiogram 01/07/21
--- NOTE | 2021-01-31 14:50 | ANE.PACU2 ---
Inpatient post-anesthesia follow up: Airway intact: Yes Vital signs: Temperature 97.5 F Pulse Rate [Monito r] 99 Pulse Rate 99 Respiratory Rate 18 Blood Pressure [Ri ght Arm] 109/63 Blood Pressure 128/73 Pulse Oximetry 99 Oxygen Delivery Me thod Room Air Oxygen Flow Rate 4 Fraction of Inspir ed Oxygen Hydration adequate: Yes Nausea and vomiting: No Pain level: 1 Mental status: Baseline
[2021-01-31 15:30] LABS: H. Pylori / CLO Test Negative
--- NOTE | 2021-01-31 16:34 | P.PN_ITS ---
Subjective Subjective: Interval history: Overnight labs and H&P reviewed. Hb 9.8. EGD with hiatal hernia and gastritis. Few petechaie and very small amount of old blood was noted Medications: Reviewed: Yes Vitals/I&O/Wt Last Vital Signs Temp 97.8 F 01/31/21 16:30 Pulse 104 H 01/31/21 16:30 Resp 20 H 01/31/21 16:30 BP 142/87 01/31/21 16:30 Pulse Ox 98 01/31/21 16:30 01/31/21 01/31/21 01/31/21 06:59 14:59 22:59 Intake Total 350 / 350 300 / 300 Balance 350 / 350 300 / 300 Weight last 48 hrs Weight 61.689 kg Data : 01/31/21 04:38 01/31/21 04:38 A&P Assessment and plan (1) Hematochezia due to medication: Status: Acute (2) Left renal mass: Status: Acute (3) Hemoptysis: Status: Acute (4) Aortic stenosis: Status: Chronic Qualifiers: Cardiac valve disease etiology: nonrheumatic Qualified Code(s): I35.0 - Nonrheumatic aortic (valve) stenosis (5) Cardiomyopathy: Status: Chronic Qualifiers: Cardiomyopathy type: dilated Qualified Code(s): I42.0 - Dilated cardiomyopathy (6) Pulmonary hypertension: Status: Chronic Additional A&P Information UGI bleed S/p UGIE today with findings as noted above Protonix 40 IV twice daily with sucralfate to continue Hold aspirin and Eliquis Appreciate surgery recommendations trend H&H in am Clear liquid diet Moderate pulmonary hypertension does not use oxygen at home Currently saturating 98% on RA Mild reduced ejection fraction heart failure without acute exacerbation N.p.o. after midnight Full code DVT prophylaxis contraindicated would use SCDs Attestations Medical Necessity Statement*: UGI bleed, s/p EGD today, monitor Hb closely Coding Level of Care Code Acute Human Machine Interface Engineer for Chg Fwd Diagnoses Hematochezia due to medication K92.1; T50.905A Left renal mass N28.89 Hemoptysis R04.2 Aortic stenosis I35.0 Cardiac valve disease etiology: nonrheumatic Cardiomyopathy I42.0 Cardiomyopathy type: dilated Pulmonary hypertension I27.20
[2021-01-31] MEDS: pantoprazole 40 mg SDV IVP (16:51)
[2021-01-31] MEDS: sevelamer 800 mg Tablet PO (16:51)
[2021-01-31] MEDS: dilTIAZem ER (24HR) 120 mg Capsule PO ×2 (16:51→21:50)
--- NOTE | 2021-01-31 18:49 | PC.RESP ---
PULMONARY REHAB INFORMATION SENT TO PATIENT.
[2021-01-31] MEDS: sucralfate 1 gm Tablet PO (21:50)
[2021-01-31] MEDS: atorvastatin 40 mg Tablet PO (21:50)
[2021-02-01] VITALS (13 sets, daily range): BP systolic 115–146; BP diastolic 71–91; PULSE 56–111; RESP 16–22; TEMP 36.5–37.1; O2SAT 93–97
[2021-02-01] MEDS: sucralfate 1 gm Tablet PO ×2 (10:41→21:18)
[2021-02-01] MEDS: dilTIAZem ER (24HR) 120 mg Capsule PO ×2 (10:41→21:19)
[2021-02-01] MEDS: pantoprazole 40 mg SDV IVP ×2 (10:41→17:14)
[2021-02-01 14:02] LABS: Hemoglobin 9.1 g/dL (11.5-15.3)
[2021-02-01] MEDS: sevelamer 800 mg Tablet PO (17:13)
[2021-02-01] MEDS: atorvastatin 40 mg Tablet PO (21:19)
--- NOTE | 2021-02-01 23:20 | PM.PN ---
Subjective Subjective: Interval history: Hb at 9.2 today, has an appetite, wishes to advance diet, one BM overnight , no reported aditi Medications: Reviewed: Yes Vitals/I&O/Wt Last Vital Signs Temp 98.0 F 02/01/21 20:08 Pulse 94 02/01/21 21:52 Resp 17 02/01/21 21:52 BP 134/77 02/01/21 20:08 Pulse Ox 96 02/01/21 21:52 02/01/21 02/01/21 02/02/21 14:59 22:59 06:59 Intake Total 490 / 490 240 / 730 Balance 490 / 490 240 / 730 Physical Exam Narrative: EXAM NARRATIVE: GEN: Awake, alert and oriented, no acute distress CVS: S1S2 N RS: CTA B/L Abd: Soft, nt/nd , bs+ PASTRY FINISHER: no focal neuro deficits Data : 02/01/21 13:41 01/31/21 04:38 A&P Assessment and plan (1) Hematochezia due to medication: Status: Acute (2) Left renal mass: Status: Acute (3) Hemoptysis: Status: Acute (4) Aortic stenosis: Status: Chronic Qualifiers: Cardiac valve disease etiology: nonrheumatic Qualified Code(s): I35.0 - Nonrheumatic aortic (valve) stenosis (5) Cardiomyopathy: Status: Chronic Qualifiers: Cardiomyopathy type: dilated Qualified Code(s): I42.0 - Dilated cardiomyopathy (6) Pulmonary hypertension: Status: Chronic Additional A&P Information UGI bleed S/p UGIE , findings of gastritis and old blood Protonix 40 IV twice daily ---> Change to po + continue with sucralfate Hold aspirin and Eliquis Appreciate surgery recommendations Advance diet to GI soft Moderate pulmonary hypertension does not use oxygen at home Currently saturating 98% on RA Mild reduced ejection fraction heart failure without acute exacerbation Full code DVT prophylaxis contraindicated would use SCDs Attestations Medical Necessity Statement*: Advance diet, change iv to po protonix, monitor H&H, likely discharge in the upcoming 24 hrs Coding Level of Care Code 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
[2021-02-02 04:08] VITALS: BP 125/67; PULSE 100; RESP 18; TEMP 36.6; O2SAT 94
[2021-02-02 06:00] VITALS: PULSE 111
[2021-02-02 08:13] VITALS: BP 121/70; PULSE 113; RESP 16; TEMP 36.6; O2SAT 94
[2021-02-02 08:18] VITALS: PULSE 101; RESP 20; O2SAT 93
[2021-02-02] MEDS: dilTIAZem ER (24HR) 120 mg Capsule PO (08:58)
[2021-02-02] MEDS: sucralfate 1 gm Tablet PO (08:58)
[2021-02-02] MEDS: pantoprazole DR 40 mg Tablet PO (08:58)
[2021-02-02 10:03] LABS: Hematocrit 30.5 % (37.0-47.0); Hemoglobin 9.4 g/dL (11.5-15.3)
--- NOTE | 2021-02-02 11:29 | PC.CHAP ---
Pastoral Care Encounter/Spiritual Assessment Type of Contact [] Declined associate creative director visit [] Patient/Family/Request visit [] Outpatient visit [] Follow-up visit [] Physician referral [] Code/Alert [x] Routine visit [] Staff referral [] Actively dying [] Patient sleeping [] Family support [] [] Out of room [] Palliative care [] [] Receiving care in room [] Pre-surgical visit [] Trauma [] Long length of stay [] ICU visit [] Other: Relational/Emotional Strength [x] Patient feels connected with others/family/visitors/staff [] Distress [] Loneliness/isolation [] Abandonment Spirituality of Patient [x] Person of Jalyn [x] Attends Church of their Jalyn [x] Believes in Prayer [] Reads Bible or Temple materials [] There are Spiritual issues to be addressed Knock Out Hand Interventions [x] Prayer [x] Active listening [x] Non-anxious presence [x] Spiritual/emotional support [] Crisis/trauma care [] Spiritual counseling [] Bereavement support [] Provided bereavement packet [] Provided Bible/devotional materials [] Provided toy/stuffed animal, coloring book to patient or family member [] Provided Communion [] Anointing/Snover [] Salvation [x] Completed spiritual assessment [] Other: Impact on Illness or Injury [] Angry [] Fearful [] Anxious [] Often cries [] Exhaustion [] Unable to work [] Unable to attend hinduism [] Unable to walk/stand [] Unable to read [] Unable to drive [] Unable to eat/drink [] Unable to sleep [] Unable to be with family [] Patient intubated [] Other: Summary Pt expecting release today. Will go to prison before returning to her home. She is excited about returning home since while she has been gone, she has had it redecorated and has cleaning persons hired to help clean. She feels confident about having things in order. She stated she is a person of jalyn and her grandfather was a virologist. Time spent with patient 15 m
[2021-02-02 11:50] VITALS: BP 129/75; PULSE 101; RESP 16; O2SAT 94
--- NOTE | 2021-02-02 14:03 | PM.DCS ---
Discharge Providers Date of Admission: 01/31/21 19:10 Date of Discharge: February 02, 2021 Attending Provider at Admission: Chava Eduardo MD Attending Provider at Discharge: Sallie Rivera MD Diagnoses at Discharge Discharge Diagnosis (1) Hematochezia due to medication: Status: Acute (2) Left renal mass: Status: Acute (3) Hemoptysis: Status: Acute (4) Aortic stenosis: Status: Chronic Permanent problem details: Mild Qualifiers: Cardiac valve disease etiology: nonrheumatic Qualified Code(s): I35.0 - Nonrheumatic aortic (valve) stenosis (5) Cardiomyopathy: Status: Chronic Permanent problem details: 35-40% Qualifiers: Cardiomyopathy type: dilated Qualified Code(s): I42.0 - Dilated cardiomyopathy (6) Pulmonary hypertension: Status: Chronic Reason for Visit Reason for Visit: GI BLEED Hospital Course Hospital Course Janelle Riley is a 85 year old female with a past medical history of systolic heart failure, COPD, moderate pulmonary hypertension, paroxysmal A. fib, aortic stenosis, chronic anemia, was recently discharged from the hospital after management of A. fib RVR, CHF exacerbation, SHAQUILLE, and, gout flareup, her Eliquis was held secondary to recurrent episodes of hemoptysis at the time of discharge hemoglobin was 8.5, recently followed up with Dr. Bermeo who resumed Eliquis considering stable hemoglobin presented today with chief complaint of generalized weakness and lethargy and melanotic stools.S/p UGIE , findings of gastritis and old blood. Protonix 40 IV twice daily ---> Changed to po at discharge+ continue with sucralfate. Hold aspirin and Eliquis after discussion with her outapteint charge accounts audit clerk as this is second episode of bleeding ecently. She understands at this present time risk of fatal event from bleeding outweighs the risk of possible stroke by being off anticoagulation. Encouraged to follow-up with Dr. Bermeo in 1 week. 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 AND TEXTILES RESTORER: no focal neuro deficits Discharge Data Data Completed and Pending: Completed Studies During Hospitalization Category Date Time Status CT abdomen pelvis wo con [id number] Urge nt Cat Scan 01/30/21 14:36 Completed XR chest 1V kisha ble [id number] Urgent Exams 01/30/21 14:36 Completed Pending at discharge Category Date Time Status Leukocyte Reduced RBC Stat Lab 01/30/21 15:26 Results Type and Screen R outine Lab 01/30/21 15:26 Results Labs from last 24 hours 02/02/21 09:57 Hgb 9.4 L Hct 30.5 L Vitals: Last Vital Signs Temp 97.9 F 02/02/21 08:13 Pulse 101 H 02/02/21 11:50 Resp 16 02/02/21 11:50 BP 129/75 02/02/21 11:50 Pulse Ox 94 02/02/21 11:50 Discharge Plan Discharge Patient Disposition: Xfer SNF Condition: Stable Prescriptions: Continued acetaminophen [Tylenol] 325 mg tablet 325 mg PO QID PRN (Reason: Pain) RF: 0 pantoprazole 40 mg tablet,delayed release (DR/EC) 40 mg PO BID@ RF: 0 furosemide 40 mg Tablet 80 mg PO DAILY@0800 30 Days Qty: 60 RF: 0 Cardizem LA 120 mg tablet extended release 24 hr 120 mg PO Q12H 30 Days Qty: 60 RF: 0 prednisone 20 mg Tablet 40 mg PO DAILY@0800 RF: 0 Dulcolax (bisacodyl) 10 mg Suppository 10 mg UT DAILY PRN (Reason: Constipation) RF: 0 atorvastatin 40 mg tablet 40 mg PO BEDTIME@1999 RF: 0 Carafate 1 gram tablet 1 g PO BID@ RF: 0 Klor-Con M20 20 mEq tablet,ER particles/crystals 40 meq PO DAILY@0800 RF: 0 DOK 100 mg capsule 100 mg PO BID@ RF: 0 sevelamer carbonate 800 mg tablet 800 mg PO DAILY@1700 RF: 0 Discontinued Eliquis 2.5 mg tablet 2.5 mg PO BID@ Qty: 180 RF: 3 Hold Instructions: Resume on 02/01/21. HOLD until seen by cardiology aspirin 325 mg tablet 325 mg PO DAILY@0800 RF: 0 Discharge Orders: Discharge Order (Routine); Ordered 02/02/21 Ordered By: Sallie Rivera Referrals: Viki Rodríguez FNP [Nurse Practitioner] - 02/10/21 10:30 am ( ) Discharge Diet: Advance as tolerated Discharge Activity: Resume usual activity Patient Instructions: GI Discharge Instructions, Opioid Safety Discharge Attestations Time Spent in Discharge Care*: greater than 30 min Specific Discharge Activities: educating patient, discussing with pcp/other providers and discussing with shoe caser/social workers/dc planners Quality Metrics Clinical Quality Measures During this hospital stay, did patient experience: None Coding Level of Care Code Acute Chg FW DC note Diagnoses Hematochezia due to medication K92.1; T50.905A Left renal mass N28.89 Hemoptysis R04.2 Aortic stenosis I35.0 Cardiac valve disease etiology: nonrheumatic Cardiomyopathy I42.0 Cardiomyopathy type: dilated Pulmonary hypertension I27.20
--- NOTE | 2021-02-02 14:56 | PC.NURSE ---
PT HAS DONE WELL FOR ME TODAY. NO COMPLAINTS OF PAIN. PT IS ANXIOUS TO GET OUT OF HERE. PT WILL DISCHARGE TODAY BACK TO [facility] PER MD. REPORT WAS CALLED. ALL QUESTIONS ANSWERED. PT PULLED OUT IV CATHETER. CATHETER TIP INTACT. [facility] CAME AND GOT PT. PT ASSISTED INTO WHEELCHAIR SAFELY. PT SAFELY DISCHARGED FROM THE HOSPITAL AT 14:56.
[2021-02-02 14:59] VITALS: BP 129/75; PULSE 101; RESP 16; O2SAT 94
== END 2021-02-02 15:00 | disposition skilled nursing facility (03) | DRG 378 ==
LOC: ER 14:33 → MEDSURG 20:22
PROVIDERS: Surgery; Admitting Provider Internal Medicine; Emergency Provider Family Medicine; Visit Provider Student in an Organized Health Care Education/Training Program
PROC: 0DJ08ZZ Inspection of Upper Intestinal Tract, Via Natural or Artificial Opening Endoscopic (ICD-10-PCS; CPT 43235; principal; 2021-01-31 11:30)
DX: K29.71 Gastritis, unspecified, with bleeding (principal); I13.0 Hypertensive heart and chronic kidney disease with heart failure and stage 1 through stage 4 chronic kidney disease, or unspecified chronic kidney disease; N18.4 Chronic kidney disease, stage 4 (severe); I50.22 Chronic systolic (congestive) heart failure; T45.515A Adverse effect of anticoagulants, initial encounter; K44.9 Diaphragmatic hernia without obstruction or gangrene; J44.9 Chronic obstructive pulmonary disease, unspecified; I27.20 Pulmonary hypertension, unspecified; I48.91 Unspecified atrial fibrillation; I35.0 Nonrheumatic aortic (valve) stenosis; D63.1 Anemia in chronic kidney disease; I25.5 Ischemic cardiomyopathy; M10.9 Gout, unspecified; N28.89 Other specified disorders of kidney and ureter; Z87.891 Personal history of nicotine dependence
CPT/HCPCS: 12345; 36415; 36430; 43239; 71045; 74176; 80048; 80053; 81003; 83605; 83880; 84484; 85014; 85018; 85025; 85378; 86850; 86900; 86920; 87077; 93005; 99285; C9113; G0378; J2704; J2920; J3490; J7030; J7050; P9016

== ENCOUNTER 2021-02-17 10:00 | Inpatient (IN) | payer MEDICARE, MEDICAID, SELFPAY ==
[2021-02-17] VITALS (13 sets, daily range): BP systolic 97–119; BP diastolic 56–80; PULSE 74–122; RESP 16–30; TEMP 36.5–36.7; O2SAT 94–99; BMI 24.8
--- NOTE | 2021-02-17 10:22 | ED_ITS ---
HPI - SOB/Dyspnea General: Chief Complaint: Shortness of Breath/Dyspnea Stated Complaint: CHF EXACERBATION/ EDEMA Time Seen by Provider: 02/17/21 10:04 History of Present Illness: HPI Narrative: 85-year-old female presents to the emergency room via EMS with complaints of shortness of breath. She denies any significant chest pain. States has been increasing over the last few days she was told she was sent to the emergency room to get the fluid off. She has a known history of atrial fibrillation she is on apixaban on arrival here she is in A. fib with RVR. HICKMAN elicited complaint: shortness of breath Pertinent past history: congestive heart failure Onset (ago): unknown Timing: constant Severity: moderate Exacerbating factors: lying flat and exertion Relieving factors: oxygen, rest and upright position Known history of: congestive heart failure Associated symptoms: Reports chest congestion, orthopnea and palpitations; Deny abdominal pain, chest pain, cough, diaphoresis, dizziness, extremity pain, fever(s), hemoptysis, lightheadedness, myalgias, nausea, paresthesias, polydipsia, polyuria, rash, sense of impending doom, syncope or vomiting Treatment prior to arrival: oxygen Review of Systems Const: Denies: fever(s) or diaphoresis ENMT: Denies: throat pain, ear or mastoid pain, nasal discharge or nasal congestion Card: Reports: palpitations and orthopnea; Denies: chest pain, lightheadedness or syncope Resp: Reports: chest congestion; Denies: hemoptysis GI: Denies: abdominal pain, nausea or vomiting : Denies: flank pain, difficulty voiding, dysuria, urinary frequency or urinary urgency Musc: Denies: extremity pain Skin/Breast: Denies: rash or pruritus Neuro: Denies: dizziness Endo: Denies: polyuria or polydipsia PFSH ED PFSH: Medical History LIZABETH inhibitor intolerance Anemia Aortic stenosis Mild Cardiomyopathy 35-40% CHF (congestive heart failure) Chronic kidney disease, stage 4 (severe) COPD (chronic obstructive pulmonary disease) Gout Hemoptysis Left renal mass Paroxysmal A-fib Pulmonary hypertension Surgical History History of cardiac catheterization History of cataract surgery Bilateral S/P bladder repair Bladder suspension S/P hysterectomy / BSO Family History Mother CAD (coronary artery disease) Myocardial infarction Father CAD (coronary artery disease) Social History Smoking and tobacco status: former smoker Quit status (tobacco): has quit using tobacco Year quit tobacco: 1999 Former quit date comment: [id number] history prior to quitting Alcohol intake: never Marital status: / Current occupational status: retired Physical Exam Const: COMMON NORMALS: no acute distress GENERAL APPEARANCE: cooperative and comfortable ORIENTATION/CONSCIOUSNESS: Yes awake HENMT: COMMON NORMALS: normocephalic, atraumatic and hearing grossly normal bilaterally HEAD & SCALP: normocephalic and atraumatic Eye: COMMON NORMALS: Equal, round and reactive pupils present, EOMs intact bilaterally, conjunctivae normal and no scleral icterus CONJUNCTIVA: Yes conj unctivae normal PUPIL: Yes Equal, round and reactive pupils present Neck/C-Spine: COMMON NORMALS: full ROM, no lymphadenopathy, supple and no JVD Lymph: LYMPHATIC: no lymphadenopathy noted and no lymphedema noted Resp: COMMON NORMALS: normal respiratory effort, No retractions, No use of accessory muscles and clear to auscultation bilaterally AUSCULTATION: clear to auscultation bilaterally Cardio: COMMON NORMALS: no JVD, regular rate, regular rhythm and No murmurs present (Cardio) RATE: regular rate RHYTHM: regular rhythm GI: COMMON NORMALS: Soft to palpation and No hepatosplenomegaly present AUSCULTATION: Yes normoactive bowel sounds PALPATION: Yes Soft to palpation, No Tenderness to palpation present (GI), No Guarding due to palpation present (GI) and Yes No hepatosplenomegaly present Extremity: GENERAL: Yes edema (To the level of the knees bilaterally.) Skin: COMMON NORMALS: no rashes or lesions noted GENERAL SKIN EXAM: no rashes or lesions noted Course Vital Signs: Vital signs: Vital Signs Temperature 97.6 F 02/18/21 07:47 Pulse Rate 109 H 02/18/21 07:55 Respiratory Rate 20 H 02/18/21 07:55 Blood Pressure 112/66 02/18/21 07:47 Pulse Oximetry 98 02/18/21 07:55 MDM - SOB/Dyspnea MDM Narrative: Medical decision making narrative: Patient is with pneumonia with acute exacerbation of congestive heart failure due to A. fib she also has a positive delta troponin likely from her atrial fibrillation and congestive heart failure will admit with IV antibiotics rate control discussed with Dr. Carter orders are written Lab Data: Labs: Lab Results 02/17/21 02/17/21 02/17/21 Range/Units 10:53 10:53 10:53 WBC 14.3 H (4.0-10.0) 10^3/ uL RBC 3.19 L (4.1-5.3) 10^6/u L Hgb 9.0 L (11.5-15.3) g/dL Hct 29.5 L (37.0-47.0) % MCV 92.5 (81-99) fL MCH 28.2 (28.0-34.0) pg MCHC 30.5 (30.0-36.0) g/dL RDW 19.5 H (12.1-15.1) % Plt Count 207 (130-400) 10^3/c mm MPV 10.5 H (7.4-10.4) fL Neut % (Auto) 86.2 % Lymph % (Auto) 4.8 % [facility] % (Auto) 7.2 % Eos % (Auto) 0.8 % Baso % (Auto) 0.3 % Neut # (Auto) 12.29 H (1.8-7.7) 10^3/u L Lymph # (Auto) 0.7 L (0.8-4.8) 10^3/u L [facility] # (Auto) 1.0 H (0.2-0.9) 10^3/u L Eos # (Auto) 0.1 (0.0-0.8) 10^3/u L Baso # (Auto) 0.0 (0.0-0.1) 10^3/u L Nucleated RBC % (a uto) 0 % Nucleated RBCs # 0.0 /100WBC Sodium 136 (136-145) mmol/L Potassium 5.1 (3.5-5.1) mmol/L Chloride 102 (98-107) mmol/L Carbon Dioxide 23 (22-29) mmol/L Anion Gap 16.1 (5-19) BUN 40 H (8-23) mg/dL Creatinine 2.2 H (0.5-0.9) mg/dL GFR Calculation Not Reportable Glucose 104 (65-115) mg/dL Calculated Osmolal ity 292 (285-295) mOsm/k g Calcium 7.9 L (8.5-10.5) mg/dL Total Bilirubin 1.3 H (0.15-1.2) mg/dL AST 13 (0-32) U/L ALT 17 (0-33) U/L Alkaline Phosphata se 129 H (35-105) IU/L Creatine Kinase 17 L (26-192) U/L Troponin T Baselin e 70 H (0-10) ng/L Troponin T 120 Min [place] band (0-10) ng/L Delta Troponin T (0-10) ABS# C-Reactive Protein (0.0-4.9) mg/L NT-Pro-B Natriuret Pep 4093 H (0-450) pg/mL Total Protein 5.6 L (6.6-8.7) g/dL Albumin 2.8 L (3.5-5.2) g/dL Globulin 2.8 (1.3-4.6) g/dL Procalcitonin (0-0.5) ng/mL 02/17/21 02/17/21 Range/Units 10:53 13:03 WBC (4.0-10.0) 10^3/ uL RBC (4.1-5.3) 10^6/u L Hgb (11.5-15.3) g/dL Hct (37.0-47.0) % MCV (81-99) fL MCH (28.0-34.0) pg MCHC (30.0-36.0) g/dL RDW (12.1-15.1) % Plt Count (130-400) 10^3/c mm MPV (7.4-10.4) fL Neut % (Auto) % Lymph % (Auto) % [facility] % (Auto) % Eos % (Auto) % Baso % (Auto) % Neut # (Auto) (1.8-7.7) 10^3/u L Lymph # (Auto) (0.8-4.8) 10^3/u L [facility] # (Auto) (0.2-0.9) 10^3/u L Eos # (Auto) (0.0-0.8) 10^3/u L Baso # (Auto) (0.0-0.1) 10^3/u L Nucleated RBC % (a uto) % Nucleated RBCs # /100WBC Sodium (136-145) mmol/L Potassium (3.5-5.1) mmol/L Chloride (98-107) mmol/L Carbon Dioxide (22-29) mmol/L Anion Gap (5-19) BUN (8-23) mg/dL Creatinine (0.5-0.9) mg/dL GFR Calculation Glucose (65-115) mg/dL Calculated Osmolal ity (285-295) mOsm/k g Calcium (8.5-10.5) mg/dL Total Bilirubin (0.15-1.2) mg/dL AST (0-32) U/L ALT (0-33) U/L Alkaline Phosphata se (35-105) IU/L Creatine Kinase (26-192) U/L Troponin T Baselin e (0-10) ng/L Troponin T 120 Min [place] band 80.91 H (0-10) ng/L Delta Troponin T 10.91 H* (0-10) ABS# C-Reactive Protein 61.4 H (0.0-4.9) mg/L NT-Pro-B Natriuret Pep (0-450) pg/mL Total Protein (6.6-8.7) g/dL Albumin (3.5-5.2) g/dL Globulin (1.3-4.6) g/dL Procalcitonin 0.34 (0-0.5) ng/mL Discharge Plan Discharge Patient Disposition: Admitted As Inpatient Admit Provider: Long Quintero Clinical Impression: Right upper lobe pneumonia, Acute kidney injury superimposed on chronic kidney disease, CHF (congestive heart failure), Acute respiratory failure with hypoxia, Atrial fibrillation with rapid ventricular response, Elevated troponin Condition: Stable Coding Level of Care Code ED Top Knitter for g Fwd Exam Comprehensive
--- NOTE | 2021-02-17 10:25 | XRR_ITS ---
PROCEDURE INFORMATION: Exam: XR Chest Exam date and time: 02/17/2021 10:49 AM Age: 85 years old Clinical indication: Dyspnea and other: Edema; Patient HX: HX of chf TECHNIQUE: Imaging protocol: XR of the chest. Views: 1 view. COMPARISON: CR (CHEST, ) 01/30/2021 2:49 PM FINDINGS: Lungs: There is focal infiltrate in the right upper lobe which may represent a right upper lobe pneumonia. Correlate clinically. There is also patchy increased density in the medial left lung base representing small infiltrate or atelectasis. There is a small pleural effusion blunting the left costophrenic angle. Pleural spaces: See Lungs finding. Heart/Mediastinum: The cardiac silhouette is enlarged. There is calcification of the aortic arch. Bones/joints: Unremarkable. XR/XR chest 1V portable [id number] IMPRESSION: 1. Right upper lobe infiltrate consistent with pneumonia. 2. Cardiomegaly with left basilar atelectasis and small effusion possibly due to heart failure.
--- NOTE | 2021-02-17 10:25 | ECG_ITS ---
[facility] Test Date: 2021-02-17 Pat Name: Janelle Riley Department: Room: 101 Gender: Female Addiction Therapist: : 1935 Requested By: [place] Order Number: [id number] Mera MD: Riri Farmer M.D. Measurements Intervals Eros Rate: 120 P: ND: QRS: 156 QRSD: 107 T: 91 QT: 322 QTc: 455 Interpretive Statements ATRIAL FIBRILLATION WITH RAPID VENTRICULAR RESPONSE. Ventricular couplet LOW QRS VOLTAGE IN EXTREMITY LEADS [QRS DEFLECTION < 0.5 mV IN LIMB LEADS] ANTEROLATERAL MYOCARDIAL INFARCTION [40+ ms Q WAVE IN I/aVL/V3-V6], OF INDETERMINATE AGE Compared to ECG 01/30/2021 17:04:23 Low QRS voltage now present Atrial abnormality no longer present Myocardial infarct finding still present Electronically Signed On 02-17-2021 23:46:45 CDT by Riri Farmer M.D. [id number] f
[2021-02-17] MEDS: FUROsemide 10 mg/mL SDV 4mL 40 MG IVP (10:59)
[2021-02-17 11:00] LABS: Basophils % 0.3 %; Eosinophils # 0.1 10^3/uL (0.0-0.8); Eosinophils % 0.8 %; Hematocrit 29.5 % (37.0-47.0); Lymphocytes # 0.7 10^3/uL (0.8-4.8); Lymphocytes % 4.8 %; Mean Corpuscular HGB Conc 30.5 g/dL (30.0-36.0); Mean Corpuscular Hemoglobin 28.2 pg (28.0-34.0); Mean Corpuscular Volume 92.5 fL (81-99); Mean Platelet Volume 10.5 fL (7.4-10.4); Monocytes % 7.2 %; Neutrophils # 12.29 10^3/uL (1.8-7.7); Neutrophils % 86.2 %; Nucleated Red Blood Cells % 0 %; Platelet Count 207 10^3/cmm (130-400); Red Blood Count 3.19 10^6/uL (4.1-5.3); Red Cell Distribution Width 19.5 % (12.1-15.1); White Blood Count 14.3 10^3/uL (4.0-10.0)
[2021-02-17 11:21] LABS: Troponin(5th) Baseline 70 ng/L (0-10)
[2021-02-17 11:31] LABS: Alanine Aminotransferase 17 U/L (0-33); Albumin Level 2.8 g/dL (3.5-5.2); Alkaline Phosphatase 129 IU/L (35-105); Anion Gap 16.1 (5-19); Aspartate Amino Transferase 13 U/L (0-32); Blood Urea Nitrogen 40 mg/dL (8-23); Calcium 7.9 mg/dL (8.5-10.5); Carbon Dioxide 23 mmol/L (22-29); Chloride 102 mmol/L (98-107); Creatine Phosphokinase 17 U/L (26-192); Globulin 2.8 g/dL (1.3-4.6); Glucose 104 mg/dL (65-115); NT Pro B Type Natriuretic Pept 4093 pg/mL (0-450); Osmolality Calculated 292 mOsm/kg (285-295); Potassium 5.1 mmol/L (3.5-5.1); Sodium 136 mmol/L (136-145); Total Bilirubin 1.3 mg/dL (0.15-1.2); Total Protein 5.6 g/dL (6.6-8.7)
--- NOTE | 2021-02-17 12:25 | ECG_ITS ---
[facility] Test Date: 2021-02-17 Pat Name: Janelle Riley Department: Room: 101 Gender: Female Senior Sales Representative: : 1935 Requested By: [place]co [place] Order Number: [id number] Mera MD: Riri Farmer M.D. Measurements Intervals Buna Rate: 97 P: [place]: QRS: 192 QRSD: 116 T: 89 QT: 373 QTc: 474 Interpretive Statements ATRIAL FIBRILLATION LOW QRS VOLTAGE IN EXTREMITY LEADS [QRS DEFLECTION < 0.5 mV IN LIMB LEADS] ANTEROLATERAL MYOCARDIAL INFARCTION [40+ ms Q WAVE IN I/aVL/V3-V6], OF INDETERMINATE AGE Compared to ECG 01/30/2021 17:04:23 Low QRS voltage now present Atrial abnormality no longer present Myocardial infarct finding still present Electronically Signed On 02-18-2021 0:06:55 CDT by Riri Farmer M.D. [id number]
[2021-02-17 13:29] LABS: Troponin 5 2HR 80.91 ng/L (0-10)
[2021-02-17 13:31] LABS: Troponin 5 2HR Delta 10.91 ABS# (0-10)
[2021-02-17] MEDS: levofloxacin-dextrose 5 % 750 MG/150 ML PREMIX 100 MG IV (13:59)
--- NOTE | 2021-02-17 14:01 | P.HP_ITS ---
Providers/Chief Complaint Primary Care Provider: Mary Castellano MD Chief Complaint: CHF EXACERBATION/ EDEMA History of Present Illness Janelle Riley is a 85 year old female with a past medical history of systolic and diastolic heart failure, COPD, pulmonary pretension, paroxysmal atrial fibrillation, not on anticoagulation due to hemoptysis, GI bleed, aortic stenosis, chronic anemia, who presents to [facility] due to cough, shortness of breath, fatigue, malaise, elevated heart rate, increased oxygen requirements. Patient currently is a resident of the shelter, she tells me that for the last 3 4 hours she has had increased cough, shortness of breath, fatigue, malaise, no fevers, no known sick contacts, this morning when they checked her vitals, she was hypoxic requiring 3 L oxygen, her heart rates were in the 120s to 140s, so she was brought to [facility] for evaluation. Here at [facility] patient was diagnosed with right upper lobe pneumonia, A. fib with RVR, and CHF exacerbation, hospitalist team was called for admission. Review of Systems Const: Reports: fever(s), fatigue and malaise Card: Reports: palpitations, irregular heart rhythm and edema; Denies: chest pain Resp: Reports: dyspnea and productive cough GI: Denies: abdominal pain, nausea or vomiting : Denies: flank pain or difficulty voiding Musc: Denies: neck pain or back pain Skin/Breast: Denies: rash Neuro: Denies: headache(s) Medications/Allergies Home Medications Medication Instructions Recorded Confirmed Last Taken Type pantoprazole 40 mg tablet,delayed 40 mg PO BID@08,17 12/17/19 02/17/21 02/17/21 History release acetaminophen 325 mg tablet 325 mg PO QID PRN 01/14/20 02/17/21 01/30/21 07:30 History 650 MG atorvastatin 40 mg PO BEDTIME@199901/30/21 02/17/21 02/16/21 History bisacodyl [Dulcolax (bisacodyl)] 10 mg MD DAILY PRN 01/30/21 02/17/21 Unknown History docusate sodium [DOK] 100 mg PO BID@0800,199901/30/21 02/17/21 02/17/21 History potassium chloride [Klor-Con M20] 40 meq PO DAILY@0800 01/30/21 02/17/21 02/17/21 History sevelamer carbonate 800 mg PO DAILY@1700 01/30/21 02/17/21 02/16/21 History sucralfate [Carafate] 1 g PO BID@0800,199901/30/21 02/17/21 02/17/21 History diltiazem HCl 120 mg PO BID 02/17/21 02/17/21 02/17/21 History furosemide [Lasix] 40 mg PO BID 02/17/21 02/17/21 02/17/21 History prednisone 5 mg PO DAILY 02/17/21 02/17/21 02/17/21 History Allergies Allergy/AdvReac Type Severity Reaction Status Date / Time allopurinol Allergy Severe rash, Verified 02/10/21 10:51 excoriation of skin amiodarone Allergy Intermediate rash Verified 02/10/21 10:51 digoxin Allergy Unknown Unknown Verified 02/10/21 10:51 lisinopril Allergy Unknown Unknown Verified 02/10/21 10:51 milk Allergy Unknown Unknown Verified 02/10/21 10:51 Penicillins Allergy Unknown Unknown Verified 02/10/21 10:51 PFSH Acute PFSH: Medical History LIZABETH inhibitor intolerance Anemia Aortic stenosis Mild Cardiomyopathy 35-40% CHF (congestive heart failure) Chronic kidney disease, stage 4 (severe) COPD (chronic obstructive pulmonary disease) Gout Hemoptysis Left renal mass Paroxysmal A-fib Pulmonary hypertension Surgical History History of cardiac catheterization History of cataract surgery Bilateral S/P bladder repair Bladder suspension S/P hysterectomy / BSO Family History Mother CAD (coronary artery disease) Myocardial infarction Father CAD (coronary artery disease) Social History Smoking and tobacco status: former smoker Quit status (tobacco): has quit using tobacco Year quit tobacco: 1999 Former quit date comment: [id number] history prior to quitting Alcohol intake: never Marital status: / Current occupational status: retired Vitals/I&O/Wt Last Vital Signs Temp 98.0 F 02/17/21 10:07 Pulse 102 H 02/17/21 13:45 Resp 20 H 02/17/21 13:45 BP 111/73 02/17/21 13:45 Pulse Ox 94 02/17/21 13:45 02/16/21 02/17/21 02/17/21 22:59 06:59 14:59 Intake Total 11.667 / 11.667 Balance 11.667 / 11.667 Weight last 48 hrs Weight 61.689 kg Physical Exam Const: COMMON NORMALS: no acute distress and patient oriented x3 GENERAL APPEARANCE: cooperative, comfortable and frail appearing Eye: COMMON NORMALS: Equal, round and reactive pupils present and EOMs intact bilaterally GENERAL EYE: appearance normal, both eyes and all related structures PUPIL: Yes Equal, round and reactive pupils present Neck/C-Spine: COMMON NORMALS: no lymphadenopathy THYROID: Thyroid normal Resp: COMMON NORMALS: normal respiratory effort, No retractions and No use of accessory muscles AUSCULTATION: clear to auscultation bilaterally and crackles Cardio: COMMON NORMALS: S1 normal heart sound present, S2 normal heart sound present, No gallops present (Cardio), No clicks present (Cardio) and No murmurs present (Cardio) RATE: tachycardic RHYTHM: abnormal rhythm HEART SOUNDS: S1 normal heart sound present and S2 normal heart sound present GI: COMMON NORMALS: Normal to inspection, nondistended, normoactive bowel so unds present, Soft to palpation, non-tender and No hepatosplenomegaly present PALPATION: Yes Soft to palpation and Yes No hepatosplenomegaly present Extremity: COMMON NORMALS: normal to inspection and full ROM NARRATIVE EXTREMITY EXAM: 2+ pitting edema Neuro: COMMON NORMALS: patient oriented x3, CN's II-XII intact bilaterally, moves all extremities and no focal motor deficits Psych: COMMON NORMALS: mental status grossly normal, Normal thought process present and cooperative THOUGHT PROCESS: Normal thought process present Data : 02/17/21 10:53 02/17/21 10:53 A&P Assessment and plan (1) Acute respiratory failure with hypoxia: -Secondary to right upper lobe pneumonia, systolic and diastolic CHF exacerbation, A. fib with RVR Plan: -Admit to cardiac stepdown unit [facility] for antibiotic coverage, monitor respiratory status closely, DuoNeb, oxygen therapy, flutter valve, incentive spirometer -Follow blood cultures, sputum cultures, urine bacterial antigens, MRSA nares -Currently on Cardizem drip -Bumex 1 mg twice daily, fluid restrictions 1500 cc, monitor creatinine, monitor urine output, Escobar catheter for urine output monitoring -For now anticoagulation is contraindicated given hemoptysis, GI bleed -Midodrine 5 mg 3 times daily for blood pressure support, as patient has severe cardiorenal syndrome, creatinine 2.2, might require dopamine drip -Full code -SCDs for DVT prophylaxis, anticoagulation contraindicated given GI bleed, hemoptysis Status: Acute (2) Right upper lobe pneumonia: Status: Acute (3) Atrial fibrillation with rapid ventricular response: Status: Acute (4) Acute kidney injury superimposed on chronic kidney disease: Status: Acute (5) CHF (congestive heart failure): Status: Chronic Qualifiers: Heart failure type: combined systolic and diastolic Heart failure chronicity: acute on chronic Qualified Code(s): I50.43 - Acute on chronic combined systolic (congestive) and diastolic (congestive) heart failure (6) History of GI bleed: Status: Acute (7) NSTEMI (non-ST elevated myocardial infarction): Likely supply demand ischemia from acute respiratory failure, however cannot rule out underlying cardiac etiology No chest pain complaints Based on troponin 70, 120-minute 80.9, delta 10.9, BNP 4093 EKGs show atrial fibrillation with RVR Echo shows EF of 60%, grade 4 out of 4 diastolic dysfunction, moderate pulmonary hypertension Plan -Serial troponins, serial EKGs, monitor for chest pain, telemetry monitoring -Aspirin, statin Status: Acute Attestations Medical Necessity Statement*: Patient requires hospitalization, inpatient, greater than 2 midnights, for acute respiratory failure secondary to right upper lobe pneumonia, A. fib, CHF, NSTEMI Coding Level of Care Code Acute Mobile Development Manager for [facility] Diagnoses Acute respiratory failure with hypoxia J96.01 Right upper lobe pneumonia J18.9 Atrial fibrillation with rapid ventricular response I48.91 Acute kidney injury superimposed on chronic kidney disease N17.9; N18.9 CHF (congestive heart failure) I50.43 Heart failure type: combined systolic and diastolic Heart failure chronicity: acute on chronic History of GI bleed Z87.19 NSTEMI (non-ST elevated myocardial infarction) I21.4
[2021-02-17] MEDS: midodrine 5 mg TABLET PO ×2 (15:13→16:01)
[2021-02-17] MEDS: aspirin 81 mg EC Tablet PO (15:13)
[2021-02-17] MEDS: bumetanide 0.25 mg/mL SDV 4 mL 1 MG IV (15:13)
--- NOTE | 2021-02-17 15:38 | PC.NURSE ---
RECEIVED DOCTOR ORDER TO GIVE 5MG MIDODRINE NOW, INCREASE FUTURE DOSE TO 10MG TID, D/C CARDIZEM GTT AND ADD CARDIZEM PO 60MG
[2021-02-17 15:52] LABS: Procalcitonin 0.34 ng/mL (0-0.5)
--- NOTE | 2021-02-17 16:25 | ECG_ITS ---
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 Measurements Intervals [place] Rate: 101 P: CO: QRS: 160 QRSD: 113 T: 79 QT: 375 QTc: 488 Interpretive Statements ATRIAL FIBRILLATION WITH RAPID VENTRICULAR RESPONSE POSSIBLE RIGHT VENTRICULAR HYPERTROPHY [SOME/ALL OF: PROMINENT R IN V1, LATE TRANSITION, RAD, TAMMY, SSS] Possible old septal DC POSSIBLE ANTERIOR MYOCARDIAL INFARCTION [30 ms Q WAVE IN V3/V4, OR R < 0.2 mV IN V4], OF INDETERMINATE AGE Compared to ECG 02/17/2021 12:50:40 No significant changes Electronically Signed On 02-18-2021 0:10:18 CDT by Riri Farmer M.D. [id number]
[2021-02-17 16:59] LABS: C Reactive Protein 61.4 mg/L (0.0-4.9)
[2021-02-17] MEDS: sevelamer 800 mg Tablet PO (17:04)
[2021-02-17] MEDS: dilTIAZem 60 mg Tablet PO ×2 (17:04→20:56)
[2021-02-17] MEDS: pantoprazole DR 40 mg Tablet PO (17:04)
[2021-02-17 17:33] LABS: Troponin 5 6HR 74.81 ng/L (0-10); Troponin 5 6HR Delta 4.81 ng/L (0-12)
--- NOTE | 2021-02-17 19:00 | PC.NURSE ---
Bedside report received from Tika LEE. Patient is resting in bed. Alert and oriented. Patient has concerns that her bottom is getting sore. This nurse will apply barrier cream when meds are administered. Patient denies other needs at this time or complaints of pain. Nurse to continue to monitor.
[2021-02-17] MEDS: sucralfate 1 gm Tablet PO (20:53)
[2021-02-17] MEDS: atorvastatin 40 mg Tablet PO (20:54)
[2021-02-17] MEDS: midodrine 5 mg TABLET 10 MG PO (20:54)
--- NOTE | 2021-02-17 21:00 | PC.NURSE ---
Cleaned patient's lesley area with warm wipes and applied barrier cream to bottom and between legs. Pillows placed to help relieve pressure points. Nurse will continue to monitor
[2021-02-17 21:08] LABS: Bilirubin Urine Neg (Negative); Blood Urine 3+ (Negative); Glucose Urine UA Norm (Normal); Ketones Urine Negative (Negative); Nitrate Urine Negative (Negative); Protein Urine 2+ (Negative); Specific Gravity, Urine 1.015 (1.005-1.030); Urine Appearance Cloudy (CLEAR); Urine Color Red (Yellow); pH Urine 5 (5-7)
[2021-02-17 21:09] LABS: Add Urine Microscopic? YES; Leukocyte Esterase Urine 2+ (Negative); Urobilinogen Urine Norm (Negative)
[2021-02-17 21:16] LABS: RBC Urine 80-100 /hpf (0-2)
[2021-02-17 21:17] LABS: Add Urine Culture? Yes; Bacteria Urine TRACE /hpf; Squamous Epithelial Cell Urine 0-4 /hpf (0-5)
[2021-02-18] VITALS (12 sets, daily range): BP systolic 102–112; BP diastolic 49–87; PULSE 68–109; RESP 20–84; TEMP 36.4–36.9; O2SAT 93–98
[2021-02-18] MEDS: bumetanide 0.25 mg/mL SDV 4 mL 1 MG IV ×3 (03:05→20:02)
[2021-02-18] MEDS: dilTIAZem 60 mg Tablet PO (03:06)
[2021-02-18 03:53] LABS: Basophils % 0.3 %; Eosinophils # 0.2 10^3/uL (0.0-0.8); Eosinophils % 1.7 %; Hemoglobin 8.2 g/dL (11.5-15.3); Lymphocytes # 0.8 10^3/uL (0.8-4.8); Lymphocytes % 6.7 %; Mean Corpuscular HGB Conc 30.4 g/dL (30.0-36.0); Mean Corpuscular Hemoglobin 28.3 pg (28.0-34.0); Mean Corpuscular Volume 93.1 fL (81-99); Monocytes # 1.1 10^3/uL (0.2-0.9); Monocytes % 9.5 %; Neutrophils # 9.61 10^3/uL (1.8-7.7); Neutrophils % 81.1 %; Nucleated Red Blood Cells % 0 %; Platelet Count 196 10^3/cmm (130-400); Red Cell Distribution Width 19.5 % (12.1-15.1); White Blood Count 11.8 10^3/uL (4.0-10.0)
[2021-02-18 04:09] LABS: INR 1.22 (0.8-1.2)
[2021-02-18 04:19] LABS: Lactate (Lactic Acid level) 0.7 mmol/L (0.5-2.2)
[2021-02-18 04:26] LABS: Alanine Aminotransferase 13 U/L (0-33); Albumin Level 2.2 g/dL (3.5-5.2); Alkaline Phosphatase 119 IU/L (35-105); Anion Gap 15.7 (5-19); Aspartate Amino Transferase 12 U/L (0-32); Blood Urea Nitrogen 47 mg/dL (8-23); Calcium 7.6 mg/dL (8.5-10.5); Carbon Dioxide 24 mmol/L (22-29); Chloride 104 mmol/L (98-107); Creatine Phosphokinase 14 U/L (26-192); Globulin 2.9 g/dL (1.3-4.6); Glucose 80 mg/dL (65-115); Magnesium 1.7 mg/dL (1.7-2.3); NT Pro B Type Natriuretic Pept 3968 pg/mL (0-450); Osmolality Calculated 299 mOsm/kg (285-295); Phosphorus 4.3 mg/dL (2.5-4.5); Potassium 4.7 mmol/L (3.5-5.1); Sodium 139 mmol/L (136-145); Total Protein 5.1 g/dL (6.6-8.7)
--- NOTE | 2021-02-18 07:00 | XR_ITS ---
WS: [id number] Portable AP upright chest, 02/18/2021 Clinical Data: sob Comparison: Portable chest, 02/17/2021 Findings: The patchy opacity in the right upper lobe has not changed. There is a left pleural effusio n. The heart is at the upper limits of normal. The aortic arch shows calcification. Monitor leads are on the chest wall. XR/XR chest 1V portable [id number] Impression: 1. Right upper lobe opacity consistent with pneumonia unchanged. 2. No change in left pleural effusion and cardiomegaly.
[2021-02-18] MEDS: potassium chloride ER 20 mEq Tablet 40 MEQ PO (08:13)
[2021-02-18] MEDS: pantoprazole DR 40 mg Tablet PO ×2 (08:13→15:33)
[2021-02-18] MEDS: midodrine 5 mg TABLET 10 MG PO ×3 (08:13→20:02)
[2021-02-18] MEDS: aspirin 81 mg EC Tablet PO (08:13)
[2021-02-18] MEDS: sucralfate 1 gm Tablet PO ×2 (08:13→20:02)
[2021-02-18] MEDS: metOLazone 5 MG Tablet PO (09:35)
[2021-02-18] MEDS: dilTIAZem 60 mg Tablet 90 MG PO ×3 (09:36→20:02)
--- NOTE | 2021-02-18 12:03 | PM.PN ---
Subjective Subjective: Interval history: Patient was seen this morning, she tells me that she feels a lot better, she is down to 2 L, no chest pain, no palpitations, she does have a productive cough, is coughing up sputum, no fevers, no chills Vitals/I&O/Wt Last Vital Signs Temp 98.2 F 02/18/21 10:50 Pulse 97 02/18/21 10:50 Resp 28 H 02/18/21 10:50 BP 109/51 02/18/21 10:50 Pulse Ox 95 02/18/21 10:50 02/17/21 02/18/21 02/18/21 22:59 06:59 14:59 Intake Total 150 / 161.667 0.003 / 161.670 220 / 220 Output Total 500 / 500 Balance 150 / 161.667 -499.997 / -338.330 220 / 220 Weight last 48 hrs Weight 63.911 kg Weight 61.689 kg Physical Exam Const: COMMON NORMALS: no acute distress GENERAL APPEARANCE: frail appearing ORIENTATION/CONSCIOUSNESS: Yes awake, Yes oriented to person, Yes oriented to place and Yes oriented to time Resp: COMMON NORMALS: normal respiratory effort, No retractions, No use of accessory muscles and clear to auscultation bilaterally AUSCULTATION: clear to auscultation bilaterally Cardio: COMMON NORMALS: regular rate, regular rhythm, S1 normal heart sound present and S2 normal heart sound present RATE: regular rate RHYTHM: regular rhythm HEART SOUNDS: S1 normal heart sound present and S2 normal heart sound present GI: COMMON NORMALS: Normal to inspection, nondistended, normoactive bowel sounds present, Soft to palpation and non-tender PALPATION: Yes Soft to palpation Extremity: NARRATIVE EXTREMITY EXAM: Anasarca, 2+ pitting edema Neuro: SENSORIUM/ORIENTATION: Yes oriented to person, Yes oriented to place and Yes oriented to time Urinary Catheter Management^: Escobar: Cath Placed During This Visit: yes Reason for Continuing Indwelling Catheter: Acute Urinary Retention or Obstruction Urinary Catheter Date of Insertion: 02/17/21 Urinary Catheter Time of Insertion: 14:30 Data : 02/18/21 02:40 02/18/21 02:40 Micro: Microbiology 02/18/21 09:39 Gram Stain - Final Sputum - Expectorated Sputum 02/17/21 20:45 Bacterial Antigens - Final Urine,Voided 02/17/21 20:45 MRSA Culture - Final Nose 02/17/21 16:45 Blood Culture - Preliminary Blood SPECIMEN COLLECTED 02/17/21 16:41 Blood Culture - Preliminary Blood SPECIMEN COLLECTED A&P Assessment and plan (1) Acute respiratory failure with hypoxia: -Secondary to right upper lobe pneumonia, systolic and diastolic CHF exacerbation, A. fib with RVR Plan: -Admit to cardiac stepdown unit -Switched to Primaxin, monitor respiratory status closely, DuoNeb, oxygen therapy, flutter valve, incentive spirometer, hold off on adding vancomycin for MRSA pneumonia as radiographically and clinically patient is getting better -Follow blood cultures, sputum cultures, urine bacterial antigens, MRSA nares positive -Currently on Cardizem p.o. 90 every 6 hours -Bumex 1 mg twice daily, metolazone 5 mg daily fluid restrictions 1500 cc, monitor creatinine, monitor urine output, Escobar catheter for urine output monitoring -For now anticoagulation is contraindicated given hemoptysis, GI bleed -Midodrine 10 mg 3 times daily for blood pressure support, as patient has severe cardiorenal syndrome, creatinine 2.4, might require dopamine drip -Hemoglobin at 8.4, monitor -Full code -SCDs for DVT prophylaxis, anticoagulation contraindicated given GI bleed, hemoptysis Status: Acute (2) Right upper lobe pneumonia: Status: Acute (3) Atrial fibrillation with rapid ventricular response: Status: Acute (4) Acute kidney injury superimposed on chronic kidney disease: Status: Acute (5) CHF (congestive heart failure): Status: Chronic (6) History of GI bleed: Status: Acute (7) NSTEMI (non-ST elevated myocardial infarction): Likely supply demand ischemia from acute respiratory failure, however cannot rule out underlying cardiac etiology No chest pain complaints Based on troponin 70, 120-minute 80.9, delta 10.9, BNP 4093 EKGs show atrial fibrillation with RVR Echo shows EF of 60%, grade 4 out of 4 diastolic dysfunction, moderate pulmonary hypertension Plan -Serial troponins, serial EKGs, monitor for chest pain, telemetry monitoring -Aspirin, statin Status: Acute Attestations Medical Necessity Statement*: Patient requires hospitalization for acute respiratory failure with proximal a secondary pneumonia, heart failure, A. fib, [place], cardiorenal syndrome, anemia Coding Level of Care Code Acute City Assessor for [facility] Fwd Diagnoses Acute respiratory failure with hypoxia J96.01 Right upper lobe pneumonia J18.9 Atrial fibrillation with rapid ventricular response I48.91 Acute kidney injury superimposed on chronic kidney disease N17.9; N18.9 CHF (congestive heart failure) I50.9 History of GI bleed Z87.19 NSTEMI (non-ST elevated myocardial infarction) I21.4
--- NOTE | 2021-02-18 12:15 | PC.CHAP ---
Pastoral Care Encounter/Spiritual Assessment Type of Contact [] Declined specimen preparation assistant visit [] Patient/Family/Request visit [] Outpatient visit [] Follow-up visit [] Physician referral [] Code/Alert [xx] Routine visit [] Staff referral [] Actively dying [] Patient sleeping [] Family support [] [] Out of room [] Palliative care [] [] Receiving care in room [] Pre-surgical visit [] Trauma [] Long length of stay [] ICU visit [] Other: Relational/Emotional Strength [xx] Patient feels connected with others/family/visitors/staff [] Distress [] Loneliness/isolation [] Abandonment Spirituality of Patient [xx] Person of Jalyn [] Attends Orthodox of their Jalyn [xx] Believes in Prayer [xx] Reads Bible or Tenriism materials [] There are Spiritual issues to be addressed Glass Inspector Interventions [xx] Prayer [xx] Active listening [xx] Non-anxious presence [] Spiritual/emotional support [] Crisis/trauma care [] Spiritual counseling [] Bereavement support [] Provided bereavement packet [xx] Provided Bible/devotional materials [] Provided toy/stuffed animal, coloring book to patient or family member [] Provided Communion [] Anointing/[place] [] Salvation [xx] Completed spiritual assessment [] Other: Impact on Illness or Injury [] Angry [] Fearful [] Anxious [] Often cries [] Exhaustion [] Unable to work [xx] Unable to attend uatsdin [] Unable to walk/stand [] Unable to read [] Unable to drive [] Unable to eat/drink [] Unable to sleep [] Unable to be with family [] Patient intubated [] Other: Summary Elderly patient lives in [place]. She misses her friends and she forgot to bring her glasses to read. She will have nurse or healthcare social worker call [facility] to have someone bring her glasses to her. She expects to be in [place] for at least 3 days, possibly longer. She is content with possibly prolonged stay. Time spent with patient 7 minutes
[2021-02-18] MEDS: sevelamer 800 mg Tablet PO (15:33)
--- NOTE | 2021-02-18 17:21 | PC.PT ---
PT note; patient declined attempted PT evaluation this afternoon, despite encouragement, reviewed prior known bed exercise program and dispensed written program patient encouraging her to performance, will reattempt tomorrow
--- NOTE | 2021-02-18 17:28 | PC.RESP ---
Pulmonary Rehab information sent to patient.
--- NOTE | 2021-02-18 19:00 | PC.NURSE ---
Bedside report received from Tika LEE. Pt is resting in bed. Has C/O bottom being sore, lesley area cleaned with wipes and barrier cream applied. Turned and pillows placed to help keep patient off her bottom. Patient voices no other needs at this time. Nurse will continue to monitor.
[2021-02-18] MEDS: atorvastatin 40 mg Tablet PO (20:03)
[2021-02-19] VITALS (13 sets, daily range): BP systolic 92–133; BP diastolic 51–83; PULSE 67–113; RESP 18–27; TEMP 36.4–36.9; O2SAT 92–97
[2021-02-19] MEDS: bumetanide 0.25 mg/mL SDV 4 mL 1 MG IV ×3 (03:21→20:28)
[2021-02-19] MEDS: dilTIAZem 60 mg Tablet 90 MG PO ×4 (03:22→20:27)
[2021-02-19] MEDS: aspirin 81 mg EC Tablet PO (07:56)
[2021-02-19] MEDS: potassium chloride ER 20 mEq Tablet 40 MEQ PO (07:56)
[2021-02-19] MEDS: sucralfate 1 gm Tablet PO ×2 (07:57→20:27)
[2021-02-19] MEDS: pantoprazole DR 40 mg Tablet PO ×2 (07:57→18:34)
[2021-02-19] MEDS: metOLazone 5 MG Tablet PO (08:01)
[2021-02-19] MEDS: midodrine 5 mg TABLET 10 MG PO ×3 (08:01→20:27)
--- NOTE | 2021-02-19 11:07 | USR_ITS ---
PROCEDURE INFORMATION: Exam: US Retroperitoneal; Complete; Kidneys and Bladder Exam date and time: 02/19/2021 1:31 PM Age: 85 years old Clinical indication: Other: Staph aureus urinary tract infection; Additional info: Staph aurues UTI TECHNIQUE: Imaging protocol: Real-time ultrasound of the retroperitoneum with image documentation. Complete exam focused on the kidneys and bladder. COMPARISON: CT abdomen pelvis wo con [id number] 01/30/2021 3:50 PM FINDINGS: Pleural space: Bilateral pleural effusions are present greater on the left side. Right kidney: The right kidney measures 9.8 cm in length. There is diffuse increased echogenicity of the right kidney consistent with a medical renal disease. There is no right hydronephrosis calcification or mass. Left kidney: The left kidney measures 9.1 cm in length. There is diffuse increased echogenicity of the left kidney consistent with a medical renal disease. There is no left hydronephrosis. There is a 4.3 cm benign cyst at the lower pole of the left kidney. US/US renal BI* [id number] IMPRESSION: 1. Echogenic kidneys consistent with a medical renal disease. 2. 4.3 cm benign left renal cyst. 3. No hydronephrosis. 4. Bilateral pleural effusions larger on the left side.
[2021-02-19 11:52] LABS: Basophils # 0.1 10^3/uL (0.0-0.1); Basophils % 0.5 %; Eosinophils # 0.2 10^3/uL (0.0-0.8); Eosinophils % 1.6 %; Hematocrit 28.3 % (37.0-47.0); Hemoglobin 8.7 g/dL (11.5-15.3); Lymphocytes % 8.3 %; Mean Corpuscular HGB Conc 30.7 g/dL (30.0-36.0); Mean Corpuscular Hemoglobin 28.7 pg (28.0-34.0); Mean Corpuscular Volume 93.4 fL (81-99); Mean Platelet Volume 11.4 fL (7.4-10.4); Monocytes # 1.2 10^3/uL (0.2-0.9); Monocytes % 9.6 %; Neutrophils # 9.75 10^3/uL (1.8-7.7); Nucleated Red Blood Cells % 0 %; Platelet Count 231 10^3/cmm (130-400); Red Blood Count 3.03 10^6/uL (4.1-5.3); Red Cell Distribution Width 19.6 % (12.1-15.1); White Blood Count 12.4 10^3/uL (4.0-10.0)
[2021-02-19 12:02] LABS: INR 1.41 (0.8-1.2)
[2021-02-19 12:16] LABS: Lactate (Lactic Acid level) 1.6 mmol/L (0.5-2.2)
[2021-02-19] MEDS: linezolid premix 600 MG/300 ML PREMIX 300 MG IV ×2 (12:25→23:49)
[2021-02-19 12:28] LABS: Alanine Aminotransferase 15 U/L (0-33); Albumin Level 2.2 g/dL (3.5-5.2); Alkaline Phosphatase 114 IU/L (35-105); Blood Urea Nitrogen 48 mg/dL (8-23); Calcium 7.4 mg/dL (8.5-10.5); Carbon Dioxide 26 mmol/L (22-29); Chloride 102 mmol/L (98-107); Creatine Phosphokinase 21 U/L (26-192); Globulin 2.9 g/dL (1.3-4.6); Glucose 114 mg/dL (65-115); Magnesium 1.7 mg/dL (1.7-2.3); NT Pro B Type Natriuretic Pept 7705 pg/mL (0-450); Osmolality Calculated 299 mOsm/kg (285-295); Phosphorus 4.5 mg/dL (2.5-4.5); Sodium 138 mmol/L (136-145); Total Bilirubin 0.9 mg/dL (0.15-1.2); Total Protein 5.1 g/dL (6.6-8.7)
[2021-02-19 12:30] LABS: Anion Gap 14.2 (5-19); Aspartate Amino Transferase 20 U/L (0-32); Potassium 4.2 mmol/L (3.5-5.1)
--- NOTE | 2021-02-19 12:47 | PM.PN ---
Subjective Subjective: Interval history: Patient was seen this morning, she tells me that overall she is getting better, her appetite is improved, she down to 3 L, she continues to have low blood pressures, she diuresed over a liter yesterday, continues to have anasarca, bilateral extremity edema Vitals/I&O/Wt Last Vital Signs Temp 97.5 F L 02/19/21 07:38 Pulse 73 02/19/21 11:39 Resp 18 02/19/21 11:39 BP 103/57 02/19/21 07:38 Pulse Ox 92 02/19/21 11:39 02/18/21 02/19/21 02/19/21 22:59 06:59 14:59 Intake Total 220 / 800 120 / 120 Output Total 250 / 250 775 / 1025 Balance -30 / 550 -775 / -225 120 / 120 Weight last 48 hrs Weight 63.548 kg Weight 63.911 kg Physical Exam Const: COMMON NORMALS: no acute distress GENERAL APPEARANCE: frail appearing ORIENTATION/CONSCIOUSNESS: Yes awake, Yes oriented to person, Yes oriented to place and Yes oriented to time Neck/C-Spine: COMMON NORMALS: no JVD Chest: COMMONS NORMALS: normal inspection of the chest Resp: COMMON NORMALS: normal respiratory effort, No retractions and No use of accessory muscles AUSCULTATION: crackles Cardio: COMMON NORMALS: no JVD, regular rate, regular rhythm, S1 normal heart sound present and S2 normal heart sound present RATE: regular rate RHYTHM: regular rhythm HEART SOUNDS: S1 normal heart sound present and S2 normal heart sound present GI: COMMON NORMALS: Normal to inspection, nondistended, normoactive bowel sounds present, Soft to palpation and non-tender PALPATION: Yes Soft to palpation Extremity: NARRATIVE EXTREMITY EXAM: Bilateral lower extremity 2+ pitting edema, quite tender, generalized anasarca Neuro: SENSORIUM/ORIENTATION: Yes oriented to person, Yes oriented to place and Yes oriented to time Urinary Catheter Management^: Escobar: Cath Placed During This Visit: yes Reason for Continuing Indwelling Catheter: Acute Urinary Retention or Obstruction Urinary Catheter Date of Insertion: 02/17/21 Urinary Catheter Time of Insertion: 14:30 Data : 02/19/21 11:15 02/19/21 11:15 Micro: Microbiology 02/18/21 09:39 Gram Stain - Final Sputum - Expectorated Sputum Sputum Culture - Preliminary 02/17/21 20:45 Urine Culture - Preliminary Urine,Clean Catch Staphylococcus aureus 02/17/21 16:45 Blood Culture - Preliminary Blood NEGATIVE TO DATE 02/17/21 16:41 Blood Culture - Preliminary Blood NEGATIVE TO DATE 02/17/21 20:45 Bacterial Antigens - Final Urine,Voided 02/17/21 20:45 MRSA Culture - Final Nose A&P Assessment and plan (1) Acute respiratory failure with hypoxia: -Secondary to right upper lobe pneumonia, systolic and diastolic CHF exacerbation, A. fib with RVR Plan: -Admit to cardiac stepdown unit -On Primaxin, Zyvox, monitor respiratory status closely, DuoNeb, oxygen therapy, flutter valve, incentive spirometer, -Follow blood cultures, sputum cultures, urine bacterial antigens, MRSA nares positive -Currently on Cardizem p.o. 90 every 6 hours -Bumex 1 mg twice daily, metolazone 5 mg daily fluid restrictions 1500 cc, monitor creatinine, monitor urine output, Escobar catheter for urine output monitoring -Creatinine up to 2.6, urine output lackluster, continues to have diffuse anasarca, on midodrine 10 mg 3 times daily, but continues to have hypotensive episodes, start dopamine drip at a fixed rate of 3 -For now anticoagulation is contraindicated given hemoptysis, GI bleed -Hemoglobin at 8.7, monitor -Full code -SCDs for DVT prophylaxis, anticoagulation contraindicated given GI bleed, hemoptysis Status: Acute (2) Right upper lobe pneumonia: Status: Acute (3) Atrial fibrillation with rapid ventricular response: Status: Acute (4) Acute kidney injury superimposed on chronic kidney disease: Status: Acute (5) CHF (congestive heart failure): Status: Chronic (6) History of GI bleed: Status: Acute (7) NSTEMI (non-ST elevated myocardial infarction): Likely supply demand ischemia from acute respiratory failure, however cannot rule out underlying cardiac etiology No chest pain complaints Based on troponin 70, 120-minute 80.9, delta 10.9, BNP 4093 EKGs show atrial fibrillation with RVR Echo shows EF of 60%, grade 4 out of 4 diastolic dysfunction, moderate pulmonary hypertension Plan -Serial troponins, serial EKGs, monitor for chest pain, telemetry monitoring -Aspirin, statin Status: Acute (8) UTI (urinary tract infection): -Urine culture positive for staph aureus -Etiology is uncertain -But does have a history of an exophytic renal mass -Has to yet follow-up with urology -Continue Zyvox for now -We will order ESR, CRP, pro-Wilson, acute HIV, hep panel Status: Acute (9) Left renal mass: -4.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 -Known since previous admissions, has a as of yet to follow-up with outpatient urology Status: Acute Attestations Medical Necessity Statement*: Patient requires hospitalization for acute respiratory failure, anasarca, staph aureus UTI Coding Level of Care Code Acute Cooling System Operator for g Fwd Diagnoses Acute respiratory failure with hypoxia J96.01 Right upper lobe pneumonia J18.9 Atrial fibrillation with rapid ventricular response I48.91 Acute kidney injury superimposed on chronic kidney disease N17.9; N18.9 CHF (congestive heart failure) I50.9 History of GI bleed Z87.19 NSTEMI (non-ST elevated myocardial infarction) I21.4 UTI (urinary tract infection) N39.0 Left renal mass N28.89
[2021-02-19] MEDS: DOPamine drip 400 MG/250 ML PREMIX 7.1 MG IV (13:29)
--- NOTE | 2021-02-19 14:33 | PC.PT ---
PT note;Patient partially sitting up in bed, despite encouragement, again declines physical therapy, and cannot be encouraged to sit bedside for her lunch, or up in chair, states she is unable again to do this today; will reattempt again tomorrow; patient known to have low motivation.
[2021-02-19] MEDS: ondansetron 2 mg/ML SDV 2 mL 4 MG IVP (17:21)
[2021-02-19] MEDS: sevelamer 800 mg Tablet PO (18:33)
--- NOTE | 2021-02-19 19:26 | PC.NURSE ---
Bedside report received from Veronika KIDD. Pt is resting in bed. A & O x4. Has no C/O of pain or needs at this time. Nurse will continue to monitor.
[2021-02-19] MEDS: atorvastatin 40 mg Tablet PO (20:27)
[2021-02-20] VITALS (11 sets, daily range): BP systolic 120–149; BP diastolic 60–80; PULSE 80–108; RESP 18–24; TEMP 36.3–36.8; O2SAT 91–97
[2021-02-20] MEDS: ondansetron 2 mg/ML SDV 2 mL 4 MG IVP ×2 (01:50→11:28)
[2021-02-20] MEDS: dilTIAZem 60 mg Tablet 90 MG PO ×4 (03:34→20:58)
[2021-02-20] MEDS: bumetanide 0.25 mg/mL SDV 4 mL 1 MG IV (03:34)
[2021-02-20 05:31] LABS: Basophils # 0.1 10^3/uL (0.0-0.1); Basophils % 0.5 %; Eosinophils # 0.2 10^3/uL (0.0-0.8); Eosinophils % 0.9 %; Hematocrit 33.9 % (37.0-47.0); Hemoglobin 10.2 g/dL (11.5-15.3); Lymphocytes # 1.4 10^3/uL (0.8-4.8); Lymphocytes % 8.4 %; Mean Corpuscular HGB Conc 30.1 g/dL (30.0-36.0); Mean Corpuscular Hemoglobin 27.5 pg (28.0-34.0); Mean Corpuscular Volume 91.4 fL (81-99); Mean Platelet Volume 10.8 fL (7.4-10.4); Monocytes # 1.6 10^3/uL (0.2-0.9); Monocytes % 9.3 %; Neutrophils # 13.68 10^3/uL (1.8-7.7); Neutrophils % 79.7 %; Nucleated Red Blood Cells % 0 %; Platelet Count 296 10^3/cmm (130-400); Red Blood Count 3.71 10^6/uL (4.1-5.3); Red Cell Distribution Width 19.1 % (12.1-15.1); White Blood Count 17.2 10^3/uL (4.0-10.0)
[2021-02-20 05:52] LABS: Lactate (Lactic Acid level) 1.2 mmol/L (0.5-2.2)
[2021-02-20 06:07] LABS: Hepatitis A Antibody IgM Non-Reactive (Nonreactive); Hepatitis B Core IgM Non-Reactive (Nonreactive); Hepatitis B Surface Antigen Non-Reactive (Nonreactive); Hepatitis C Virus Antibody Non-Reactive (Nonreactive); INR 1.28 (0.8-1.2)
[2021-02-20 06:08] LABS: HIV 1 & 2 Antibody Non-Reactive (Non-Reactiv); HIV 1 & 2 Antigen Non-Reactive (Non-Reactiv); NT Pro B Type Natriuretic Pept 7835 pg/mL (0-450); Procalcitonin 0.37 ng/mL (0-0.5)
[2021-02-20 06:20] LABS: Alanine Aminotransferase 21 U/L (0-33); Albumin Level 2.4 g/dL (3.5-5.2); Alkaline Phosphatase 153 IU/L (35-105); Anion Gap 17.9 (5-19); Aspartate Amino Transferase 17 U/L (0-32); Blood Urea Nitrogen 48 mg/dL (8-23); C Reactive Protein 52.4 mg/L (0.0-4.9); Carbon Dioxide 24 mmol/L (22-29); Chloride 97 mmol/L (98-107); Creatine Phosphokinase 13 U/L (26-192); Globulin 3.4 g/dL (1.3-4.6); Glucose 128 mg/dL (65-115); Magnesium 1.6 mg/dL (1.7-2.3); Osmolality Calculated 292 mOsm/kg (285-295); Phosphorus 4.8 mg/dL (2.5-4.5); Potassium 4.9 mmol/L (3.5-5.1); Sodium 134 mmol/L (136-145); Total Bilirubin 1.2 mg/dL (0.15-1.2); Total Protein 5.8 g/dL (6.6-8.7)
--- NOTE | 2021-02-20 06:23 | PC.NURSE ---
Patient called this nurse to her room. Patient has a bruise on her left upper arm. Patient states that the laborer road rubbed alcohol on the bruise because her gown was stuck to it. Area seems to be raised and irritated. Nurse will continue to monitor.
[2021-02-20 06:43] LABS: Erythrocyte Sedimentation Rate 18 mm/hr (0-15)
[2021-02-20] MEDS: pantoprazole DR 40 mg Tablet PO ×2 (09:02→17:27)
[2021-02-20] MEDS: aspirin 81 mg EC Tablet PO (09:03)
[2021-02-20] MEDS: sucralfate 1 gm Tablet PO ×2 (09:03→20:58)
[2021-02-20] MEDS: potassium chloride ER 20 mEq Tablet 40 MEQ PO (09:03)
[2021-02-20] MEDS: midodrine 5 mg TABLET 10 MG PO ×3 (09:03→20:57)
--- NOTE | 2021-02-20 09:48 | PC.SOCIAL ---
IMM Update Pg. 2 of IMM Updated and reviewed with patient, who verbalized understanding. Copy provided.
[2021-02-20] MEDS: linezolid premix 600 MG/300 ML PREMIX 300 MG IV ×2 (12:31→23:33)
--- NOTE | 2021-02-20 13:59 | P.PN_ITS ---
Subjective Subjective: Interval history: This morning patient was examined, she tells me that she is feeling a lot better, her swelling in her legs, no swelling in the arms have significantly improved, she still on 3 L, no chest pain, no shortness of breath, Vitals/I&O/Wt Last Vital Signs Temp 97.6 F 02/20/21 11:54 Pulse 92 02/20/21 11:54 Resp 21 H 02/20/21 11:54 BP 131/65 02/20/21 11:54 Pulse Ox 91 02/20/21 11:54 02/19/21 02/20/21 02/20/21 22:59 06:59 14:59 Intake Total 220 / 740 300 / 1040 120 / 120 Output Total 425 / 1045 Balance 220 / 120 -125 / -5 120 / 120 Weight last 48 hrs Weight 65.317 kg Weight 63.548 kg Physical Exam Const: COMMON NORMALS: no acute distress and patient oriented x3 HENMT: COMMON NORMALS: normocephalic HEAD & SCALP: normocephalic Resp: COMMON NORMALS: normal respiratory effort, No retractions, No use of accessory muscles and clear to auscultation bilaterally AUSCULTATION: clear to auscultation bilaterally Cardio: COMMON NORMALS: regular rate, regular rhythm, S1 normal heart sound present and S2 normal heart sound present RATE: regular rate RHYTHM: regular rhythm HEART SOUNDS: S1 normal heart sound present and S2 normal heart sound present GI: COMMON NORMALS: Normal to inspection, nondistended, normoactive bowel sounds present, Soft to palpation and non-tender PALPATION: Yes Soft to p alpation Extremity: COMMON NORMALS: no pedal edema Neuro: COMMON NORMALS: patient oriented x3 Psych: COMMON NORMALS: mental status grossly normal Urinary Catheter Management^: Escobar: Cath Placed During This Visit: yes Reason for Continuing Indwelling Catheter: Acute Urinary Retention or Obstruction Urinary Catheter Date of Insertion: 02/17/21 Urinary Catheter Time of Insertion: 14:30 Data : 02/20/21 04:35 02/20/21 04:35 Micro: Microbiology 02/18/21 09:39 Gram Stain - Final Sputum - Expectorated Sputum Sputum Culture - Final Methicillin Resis Staph Aureus 02/17/21 20:45 Urine Culture - Final Urine,Clean Catch Methicillin Resis Staph Aureus A&P Assessment and plan (1) Acute respiratory failure with hypoxia: -Secondary to right upper lobe pneumonia, systolic and diastolic CHF exacerbation, A. fib with RVR Plan: -Admit to cardiac stepdown unit -On Primaxin, Zyvox, monitor respiratory status closely, DuoNeb, oxygen therapy, flutter valve, incentive spirometer, -Follow blood cultures, sputum cultures, urine bacterial antigens, MRSA nares positive, urine culture positive for staph aureus -Currently on Cardizem p.o. 90 every 6 hours -Currently Bumex 1 mg twice daily, metolazone 5 mg daily fluid restrictions are on hold as patient looks euvolemic, creatinine up to 3.1, continue 1500 cc, monitor creatinine, monitor urine output, Escobar catheter for urine output monitoring -Creatinine up to 3.1, urine output over a liter yesterday which is quite good for her, anasarca and edema have significantly improved, continue midodrine 10 mg 3 times daily, b minimal hypotensive episodes, hold dopamine drip at a fixed rate of 3 for now -Hold off on calling nephrology, for now hold diuretics, monitor urine output, monitor blood pressures, I feel that likely patient has become euvolemic and will monitor creatinine over the next 24 hours if it continues to worsen, will consult nephrology -For now anticoagulation is contraindicated given hemoptysis, GI bleed -Hemoglobin at 10.2, monitor -Full code -SCDs for DVT prophylaxis, anticoagulation contraindicated given GI bleed, hemoptysis Status: Acute (2) Right upper lobe pneumonia: Status: Acute (3) Atrial fibrillation with rapid ventricular response: Status: Acute (4) Acute kidney injury superimposed on chronic kidney disease: Status: Acute (5) CHF (congestive heart failure): Status: Chronic (6) History of GI bleed: Status: Acute (7) NSTEMI (non-ST elevated myocardial infarction): Likely supply demand ischemia from acute respiratory failure, however cannot rule out underlying cardiac etiology No chest pain complaints Based on troponin 70, 120-minute 80.9, delta 10.9, BNP 4093 EKGs show atrial fibrillation with RVR Echo shows EF of 60%, grade 4 out of 4 diastolic dysfunction, moderate pulmonary hypertension Plan -Serial troponins, serial EKGs, monitor for chest pain, telemetry monitoring -Aspirin, statin Status: Acute (8) UTI (urinary tract infection): -Urine culture positive for staph aureus -Etiology is uncertain -But does have a history of an exophytic renal mass -Has to yet follow-up with urology -Continue Zyvox for now -We will order ESR 18, CRP 52.4, pro-Wilson 0.37, acute HIV nonreactive, hep panel nonreactive -For now we will avoid aggressive work-up given patient's improving clinical status, underlying CHF, severe CKD Status: Acute (9) Left renal mass: -4.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 -Known since previous admissions, has a as of yet to follow-up with outpatient urology -We will discuss with urology, as we have urology coverage tomorrow Status: Acute Attestations Medical Necessity Statement*: Patient requires hospitalization inpatient, greater than 2 days, for acute respiratory failure, SHAQUILLE, Staph a uti Coding Level of Care Code Acute Automatic Car Wash Attendant for [facility] Diagnoses Acute respiratory failure with hypoxia J96.01 Right upper lobe pneumonia J18.9 Atrial fibrillation with rapid ventricular response I48.91 Acute kidney injury superimposed on chronic kidney disease N17.9; N18.9 CHF (congestive heart failure) I50.9 History of GI bleed Z87.19 NSTEMI (non-ST elevated myocardial infarction) I21.4 UTI (urinary tract infection) N39.0 Left renal mass N28.89
[2021-02-20] MEDS: atorvastatin 40 mg Tablet PO (20:58)
[2021-02-21] VITALS (11 sets, daily range): BP systolic 66–106; BP diastolic 42–62; PULSE 60–88; RESP 12–22; TEMP 36.6; O2SAT 92–96
[2021-02-21] MEDS: dilTIAZem 60 mg Tablet 90 MG PO (03:13)
[2021-02-21 04:22] LABS: Basophils # 0.1 10^3/uL (0.0-0.1); Basophils % 0.5 %; Eosinophils # 0.2 10^3/uL (0.0-0.8); Eosinophils % 1.4 %; Hematocrit 28.4 % (37.0-47.0); Hemoglobin 8.6 g/dL (11.5-15.3); Lymphocytes % 7.6 %; Mean Corpuscular HGB Conc 30.3 g/dL (30.0-36.0); Mean Corpuscular Hemoglobin 27.7 pg (28.0-34.0); Mean Corpuscular Volume 91.6 fL (81-99); Mean Platelet Volume 9.8 fL (7.4-10.4); Monocytes # 1.1 10^3/uL (0.2-0.9); Monocytes % 8.5 %; Neutrophils % 80.7 %; Nucleated Red Blood Cells % 0 %; Platelet Count 270 10^3/cmm (130-400); Red Cell Distribution Width 18.8 % (12.1-15.1); White Blood Count 13.3 10^3/uL (4.0-10.0)
[2021-02-21 04:33] LABS: INR 1.42 (0.8-1.2)
[2021-02-21 04:42] LABS: Lactate (Lactic Acid level) 2.6 mmol/L (0.5-2.2)
[2021-02-21 04:48] LABS: NT Pro B Type Natriuretic Pept 8368 pg/mL (0-450); Procalcitonin 0.51 ng/mL (0-0.5)
[2021-02-21 05:01] LABS: Alanine Aminotransferase 17 U/L (0-33); Alkaline Phosphatase 110 IU/L (35-105); Anion Gap 17.3 (5-19); Aspartate Amino Transferase 11 U/L (0-32); Blood Urea Nitrogen 51 mg/dL (8-23); C Reactive Protein 32.7 mg/L (0.0-4.9); Calcium 7.3 mg/dL (8.5-10.5); Carbon Dioxide 21 mmol/L (22-29); Chloride 98 mmol/L (98-107); Globulin 2.6 g/dL (1.3-4.6); Glucose 110 mg/dL (65-115); Magnesium 1.6 mg/dL (1.7-2.3); Osmolality Calculated 286 mOsm/kg (285-295); Phosphorus 5.6 mg/dL (2.5-4.5); Potassium 5.3 mmol/L (3.5-5.1); Sodium 131 mmol/L (136-145); Total Bilirubin 0.8 mg/dL (0.15-1.2); Total Protein 4.6 g/dL (6.6-8.7)
[2021-02-21] MEDS: potassium chloride ER 20 mEq Tablet 40 MEQ PO (09:14)
[2021-02-21] MEDS: aspirin 81 mg EC Tablet PO (09:14)
[2021-02-21] MEDS: sucralfate 1 gm Tablet PO ×2 (09:14→20:27)
[2021-02-21] MEDS: magnesium oxide 400 mg tablet PO (09:14)
[2021-02-21] MEDS: midodrine 5 mg TABLET 10 MG PO ×2 (09:15→20:27)
[2021-02-21] MEDS: pantoprazole DR 40 mg Tablet PO ×2 (09:19→17:28)
[2021-02-21] MEDS: sodium chloride 0.9% 250 ML IV (10:55)
[2021-02-21] MEDS: sodium chloride 0.9% 1,000 ML 75 ML IV (12:21)
[2021-02-21] MEDS: linezolid premix 600 MG/300 ML PREMIX 300 MG IV ×2 (12:21→23:17)
[2021-02-21 12:33] LABS: Hematocrit 32.6 % (37.0-47.0); Hemoglobin 9.1 g/dL (11.5-15.3)
--- NOTE | 2021-02-21 12:36 | PM.PN ---
Subjective Subjective: Interval history: BP low today CCB held 250 cc IV bolus given Hgb noted to be lower reports poor appetite Vitals/I&O/Wt Last Vital Signs Temp 97.8 F 02/21/21 10:16 Pulse 70 02/21/21 10:16 Resp 17 02/21/21 10:16 BP 88/47 02/21/21 10:16 Pulse Ox 96 02/21/21 10:16 02/20/21 02/21/21 02/21/21 22:59 06:59 14:59 Intake Total 220 / 740 360 / 1100 350 / 350 Output Total 200 / 200 50 / 250 Balance 20 / 540 310 / 850 350 / 350 Weight last 48 hrs Weight 144 lb Weight 144 lb Physical Exam Const: COMMON NORMALS: no acute distress and patient oriented x3 Neck/C-Spine: COMMON NORMALS: no JVD Resp: COMMON NORMALS: normal respiratory effort and No retractions Cardio: COMMON NORMALS: no JVD and regular rate RATE: regular rate GI: COMMON NORMALS: Soft to palpation; negative for non-tender PALPATION: Yes Soft to palpation and Yes Tenderness to palpation present (GI) Neuro: COMMON NORMALS: patient oriented x3 Psych: COMMON NORMALS: mental status grossly normal and Normal thought process present THOUGHT PROCESS: Normal thought process present Urinary Catheter Management^: Escobar: Cath Placed During This Visit: yes Reason for Continuing Indwelling Catheter: Accurate Measurement of Urinary Output in Critically Ill Patients Urinary Catheter Date of Insertion: 02/17/21 Urinary Catheter Time of Insertion: 14:30 Data : 02/21/21 12:28 02/21/21 04:08 Micro: Microbiology 02/18/21 09:39 Gram Stain - Final Sputum - Expectorated Sputum Sputum Culture - Final Methicillin Resis Staph Aureus 02/17/21 20:45 Urine Culture - Final Urine,Clean Catch Methicillin Resis Staph Aureus A&P Assessment and plan (1) CHF (congestive heart failure): Status: Chronic (2) Acute kidney injury superimposed on chronic kidney disease: Status: Acute (3) Anemia: Status: Acute (4) Paroxysmal A-fib: Status: Acute (5) Acute respiratory failure with hypoxia: Status: Acute (6) Right upper lobe pneumonia: Status: Acute (7) History of GI bleed: Status: Acute (8) UTI (urinary tract infection): Status: Acute Additional A&P Information #acute respiratory failure --multifactorial 2/2 combined CHF, Afib, PNA #hypotension --hold CCB --repeat H/H --gentle fluids #anemia --repeat H/H --check stool studies #UTI --on abx #renal mass --monitor, consider Urology consult #NSTEMI --no chest pain #afib --rate controlled #history of GI bleed --as above #hyperkalemia #hypomagnesemia --replace and recheck #abd pain --continue PPI, if persists will check US/CT Attestations Medical Necessity Statement*: [facility]'s hospital stay will require greater than 2 midnights for sob Coding Level of Care Code Acute Organ Pipe Voicer for Chg Fwd Diagnoses CHF (congestive heart failure) I50.9 Acute kidney injury superimposed on chronic kidney disease N17.9; N18.9 Anemia D64.9 Paroxysmal A-fib I48.0 Acute respiratory failure with hypoxia J96.01 Right upper lobe pneumonia J18.9 History of GI bleed Z87.19 UTI (urinary tract infection) N39.0
[2021-02-21] MEDS: sevelamer 800 mg Tablet PO (17:29)
--- NOTE | 2021-02-21 19:12 | PC.NURSE ---
Received bedside report from MARTI Ma. Patient resting in bed watching tv. Patient has bailey catheter in place. Fluids running at 75ml/hr. Assessment completed as ordered. Patient asked this RN about her kidney function asking, is my kidneys shutting down. We discussed her urine output and use of fluids to help with hydration. Patient verbalized, I am not drinking enough. I just don't feel like eating or drinking. I take to many pills and feel full all the time. Patient takes her medication in applesauce. Offered to bring pudding instead and patient was excited for the change.
--- NOTE | 2021-02-21 20:03 | PC.NURSE ---
Received instruction per Dr Goodman to hold calcium channel kareen for now.
[2021-02-21] MEDS: atorvastatin 40 mg Tablet PO (20:27)
--- NOTE | 2021-02-21 20:31 | PC.NURSE ---
Patient stated to this RN, Please make sure I don't alone. She reports her kids won't come to see her in this condition. Reassured patient that she would be watched closely and frequently. Patient expressed great thanks. Administered scheduled medications in vanilla pudding. Patient was very grateful for the change stating, I will never eat applesauce again.
--- NOTE | 2021-02-21 22:47 | PC.NURSE ---
Patient c/o generalized pain but refuses pain medication stating, I already take too many pills. Patient c/o pain to the slightest touch to her skin. Provided gentle care as possible for episode of bowel incontinence. Sylvia-care performed.
[2021-02-22] VITALS (11 sets, daily range): BP systolic 85–113; BP diastolic 40–64; PULSE 64–93; RESP 15–28; TEMP 36.4–36.7; O2SAT 92–98
[2021-02-22] MEDS: sodium chloride 0.9% 1,000 ML 75 ML IV (01:49)
[2021-02-22 05:26] LABS: Basophils # 0.1 10^3/uL (0.0-0.1); Basophils % 0.5 %; Eosinophils # 0.2 10^3/uL (0.0-0.8); Eosinophils % 2.1 %; Hematocrit 28.1 % (37.0-47.0); Hemoglobin 8.6 g/dL (11.5-15.3); Lymphocytes # 1.1 10^3/uL (0.8-4.8); Lymphocytes % 9.7 %; Mean Corpuscular HGB Conc 30.6 g/dL (30.0-36.0); Mean Corpuscular Hemoglobin 27.8 pg (28.0-34.0); Mean Corpuscular Volume 90.9 fL (81-99); Mean Platelet Volume 11.1 fL (7.4-10.4); Monocytes # 0.7 10^3/uL (0.2-0.9); Monocytes % 6.4 %; Neutrophils # 9.38 10^3/uL (1.8-7.7); Neutrophils % 80.4 %; Nucleated Red Blood Cells % 0 %; Platelet Count 239 10^3/cmm (130-400); Red Blood Count 3.09 10^6/uL (4.1-5.3); White Blood Count 11.7 10^3/uL (4.0-10.0)
[2021-02-22 05:34] LABS: INR 1.34 (0.8-1.2)
[2021-02-22 05:40] LABS: Lactate (Lactic Acid level) 1.6 mmol/L (0.5-2.2)
[2021-02-22 05:59] LABS: Procalcitonin 0.41 ng/mL (0-0.5)
[2021-02-22 06:19] LABS: Alanine Aminotransferase 15 U/L (0-33); Anion Gap 16.4 (5-19); Aspartate Amino Transferase 12 U/L (0-32); Chloride 98 mmol/L (98-107); Globulin 2.9 g/dL (1.3-4.6); Glucose 74 mg/dL (65-115); Osmolality Calculated 286 mOsm/kg (285-295); Total Bilirubin 0.8 mg/dL (0.15-1.2)
[2021-02-22 06:27] LABS: Blood Urea Nitrogen 61 mg/dL (8-23); Carbon Dioxide 21 mmol/L (22-29); Magnesium 1.6 mg/dL (1.7-2.3); NT Pro B Type Natriuretic Pept 6161 pg/mL (0-450); Phosphorus 5.2 mg/dL (2.5-4.5); Potassium 5.4 mmol/L (3.5-5.1); Sodium 130 mmol/L (136-145)
[2021-02-22 06:28] LABS: Albumin Level 1.9 g/dL (3.5-5.2); Alkaline Phosphatase 111 IU/L (35-105); Total Protein 4.8 g/dL (6.6-8.7)
--- NOTE | 2021-02-22 07:40 | PC.NURSE ---
Received orders to stop fluids
[2021-02-22] MEDS: aspirin 81 mg EC Tablet PO (07:41)
[2021-02-22] MEDS: midodrine 5 mg TABLET 10 MG PO ×3 (07:43→21:16)
[2021-02-22] MEDS: dilTIAZem 60 mg Tablet 90 MG PO ×3 (07:43→21:15)
[2021-02-22] MEDS: pantoprazole DR 40 mg Tablet PO ×2 (07:43→18:06)
[2021-02-22] MEDS: sucralfate 1 gm Tablet PO ×2 (07:43→21:15)
--- NOTE | 2021-02-22 08:00 | ECG_ITS ---
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 Measurements Intervals [place] Rate: 95 P: MO: QRS: 190 QRSD: 118 T: 78 QT: 395 QTc: 498 Interpretive Statements ATRIAL FIBRILLATION MARKED RIGHT AXIS DEVIATION [QRS AXIS > 100] LOW QRS VOLTAGE IN EXTREMITY LEADS [QRS DEFLECTION < 0.5 mV IN LIMB LEADS] ANTEROSEPTAL MYOCARDIAL INFARCTION [40+ ms Q WAVE IN V1-V4], OF INDETERMINATE AGE Compared to ECG 02/17/2021 17:48:13 Right-axis deviation now present Low QRS voltage now present Atrial abnormality no longer present Myocardial infarct finding still present Electronically Signed On 02-22-2021 23:18:09 CDT by Leigh Ann Morin M.D. [id number]
[2021-02-22] MEDS: sodium polystyrene sulfonate 15 gm/60 mL Btl PO (08:15)
--- NOTE | 2021-02-22 08:55 | PC.NURSE ---
AM potassium held per morning labs. Dr. Goodman called. New orders.
--- NOTE | 2021-02-22 09:24 | PC.CHAP ---
Pastoral Care Encounter/Spiritual Assessment Type of Contact [] Declined body painter visit [] Patient/Family/Request visit [] Outpatient visit [] Follow-up visit [] Physician referral [] Code/Alert [x] Routine visit [] Staff referral [] Actively dying [] Patient sleeping [] Family support [] [] Out of room [] Palliative care [] [] Receiving care in room [] Pre-surgical visit [] Trauma [] Long length of stay [] ICU visit [x] Other:isolated Relational/Emotional Strength [] Patient feels connected with others/family/visitors/staff [] Distress [] Loneliness/isolation [] Abandonment Spirituality of Patient [] Person of Jalyn [] Attends Buddhist of their Jalyn [] Believes in Prayer [] Reads Bible or Voodoo materials [] There are Spiritual issues to be addressed Gravity Flow Irrigator Interventions [x] Prayer [] Active listening [] Non-anxious presence [] Spiritual/emotional support [] Crisis/trauma care [] Spiritual counseling [] Bereavement support [] Provided bereavement packet [] Provided Bible/devotional materials [] Provided toy/stuffed animal, coloring book to patient or family member [] Provided Communion [] Anointing/[place] [] Salvation [x] Completed spiritual assessment [] Other: Impact on Illness or Injury [] Angry [] Fearful [] Anxious [] Often cries [] Exhaustion [] Unable to work [] Unable to attend congregation [] Unable to walk/stand [] Unable to read [] Unable to drive [] Unable to eat/drink [] Unable to sleep [] Unable to be with family [] Patient intubated [] Other: Summary Time spent with patient
--- NOTE | 2021-02-22 09:27 | PC.SOCIAL ---
IMM Updated Updated pt on Pg 2 IMM. No questions voiced. Provided pt a copy. Initialed, dated, & timed copy in chart.
--- NOTE | 2021-02-22 10:53 | PM.PN ---
Subjective Subjective: Interval history: feels slightly better having heel pain BP stable denies worsening dyspnea Medications: Reviewed: Yes Vitals/I&O/Wt Last Vital Signs Temp 97.6 F 02/22/21 06:59 Pulse 90 02/22/21 09:19 Resp 18 02/22/21 09:19 BP 92/54 02/22/21 06:59 Pulse Ox 92 02/22/21 09:19 02/21/21 02/22/21 02/22/21 22:59 06:59 14:59 Intake Total 100 / 750 1300 / 2050 551.25 / 551.25 Output Total 80 / 80 50 / 130 Balance 20 / 670 1250 / 1920 551.25 / 551.25 Weight last 48 hrs Weight 144 lb 1.6 oz Weight 144 lb Physical Exam Const: COMMON NORMALS: no acute distress and patient oriented x3 Eye: COMMON NORMALS: EOMs intact bilaterally Resp: COMMON NORMALS: normal respiratory effort, No retractions and No use of accessory muscles Cardio: COMMON NORMALS: regular rate and regular rhythm RATE: regular rate RHYTHM: regular rhythm GI: COMMON NORMALS: Soft to palpation and non-tender PALPATION: Yes Soft to palpation Neuro: COMMON NORMALS: patient oriented x3 and CN's II-XII intact bilaterally Psych: COMMON NORMALS: mental status grossly normal and Normal thought process present THOUGHT PROCESS: Normal thought process present Urinary Catheter Management^: Escobar: Cath Placed During This Visit: yes Reason for Continuing Indwelling Catheter: Assist Healing of Perineal & Sacral Wounds- Incontinent Patients Urinary Catheter Date of Insertion: 02/17/21 Urinary Catheter Time of Insertion: 14:30 Data : 02/23/21 04:40 02/23/21 04:40 Micro: Microbiology 02/21/21 12:49 Occult Blood (FIT) - Final Stool A&P Assessment and plan (1) Paroxysmal A-fib: Status: Acute (2) Anemia: Status: Acute (3) CHF (congestive heart failure): Status: Chronic (4) Acute kidney injury superimposed on chronic kidney disease: Status: Acute (5) History of GI bleed: Status: Acute (6) UTI (urinary tract infection): Status: Acute Additional A&P Information #acute respiratory failure --multifactorial 2/2 combined CHF, Afib, PNA #hypotension -improved --IVF dc'd --hemoglobin stable --gentle fluids #anemia --repeat H/H --check stool studies #UTI --on abx #renal mass --monitor, consider Urology consult #NSTEMI --no chest pain #afib --rate controlled #history of GI bleed --as above #hyperkalemia #hypomagnesemia --replace and recheck #abd pain --continue PPI, if persists will check US/CT Attestations Medical Necessity Statement*: Janelle Riley's hospital stay will require greater than 2 midnights for chest pain Coding Level of Care Code Acute Warp Scouring Vat Tender for Chg Fwd Exam Detailed Diagnoses Paroxysmal A-fib I48.0 Anemia D64.9 CHF (congestive heart failure) I50.9 Acute kidney injury superimposed on chronic kidney disease N17.9; N18.9 History of GI bleed Z87.19 UTI (urinary tract infection) N39.0
[2021-02-22] MEDS: linezolid premix 600 MG/300 ML PREMIX 300 MG IV (12:39)
[2021-02-22] MEDS: sevelamer 800 mg Tablet PO (16:58)
[2021-02-22] MEDS: atorvastatin 40 mg Tablet PO (21:15)
[2021-02-23] VITALS (10 sets, daily range): BP systolic 90–137; BP diastolic 44–69; PULSE 64–105; RESP 16–35; TEMP 36.4–36.7; O2SAT 88–97
[2021-02-23] MEDS: linezolid premix 600 MG/300 ML PREMIX 300 MG IV ×2 (00:39→15:34)
[2021-02-23] MEDS: dilTIAZem 60 mg Tablet 90 MG PO ×2 (03:13→09:02)
[2021-02-23 05:01] LABS: Basophils % 0.3 %; Eosinophils # 0.2 10^3/uL (0.0-0.8); Eosinophils % 1.7 %; Hemoglobin 8.4 g/dL (11.5-15.3); Lymphocytes # 1.1 10^3/uL (0.8-4.8); Lymphocytes % 10.6 %; Mean Corpuscular HGB Conc 31.1 g/dL (30.0-36.0); Mean Corpuscular Hemoglobin 27.8 pg (28.0-34.0); Mean Corpuscular Volume 89.4 fL (81-99); Mean Platelet Volume 9.5 fL (7.4-10.4); Monocytes # 0.9 10^3/uL (0.2-0.9); Monocytes % 8.8 %; Neutrophils # 8.13 10^3/uL (1.8-7.7); Neutrophils % 77.1 %; Nucleated Red Blood Cells % 0 %; Platelet Count 252 10^3/cmm (130-400); Red Blood Count 3.02 10^6/uL (4.1-5.3); White Blood Count 10.6 10^3/uL (4.0-10.0)
[2021-02-23 05:21] LABS: INR 1.45 (0.8-1.2)
[2021-02-23 05:25] LABS: NT Pro B Type Natriuretic Pept 7653 pg/mL (0-450); Procalcitonin 0.43 ng/mL (0-0.5)
[2021-02-23 05:36] LABS: Alanine Aminotransferase 13 U/L (0-33); Albumin Level 1.9 g/dL (3.5-5.2); Alkaline Phosphatase 114 IU/L (35-105); Anion Gap 15.9 (5-19); Aspartate Amino Transferase 13 U/L (0-32); Blood Urea Nitrogen 67 mg/dL (8-23); C Reactive Protein 27.8 mg/L (0.0-4.9); Calcium 6.8 mg/dL (8.5-10.5); Carbon Dioxide 21 mmol/L (22-29); Chloride 96 mmol/L (98-107); Globulin 2.9 g/dL (1.3-4.6); Glucose 88 mg/dL (65-115); Magnesium 1.5 mg/dL (1.7-2.3); Osmolality Calculated 285 mOsm/kg (285-295); Phosphorus 5.6 mg/dL (2.5-4.5); Potassium 4.9 mmol/L (3.5-5.1); Sodium 128 mmol/L (136-145); Total Bilirubin 0.6 mg/dL (0.15-1.2); Total Protein 4.8 g/dL (6.6-8.7)
[2021-02-23] MEDS: aspirin 81 mg EC Tablet PO (08:46)
[2021-02-23] MEDS: sucralfate 1 gm Tablet PO ×2 (08:46→21:46)
[2021-02-23] MEDS: midodrine 5 mg TABLET 10 MG PO ×3 (08:46→21:45)
[2021-02-23] MEDS: pantoprazole DR 40 mg Tablet PO (08:46)
--- NOTE | 2021-02-23 09:03 | PC.NURSE ---
BP-97/44, MAP-[address] in person to hold or continue cardizem 90 mg for BP-97/44. HR-96. Verbal order readback to hold cardizem if BP systolic is less than 95.
--- NOTE | 2021-02-23 09:09 | XR_ITS ---
WS: [id number] Exam: XR chest 1V portable [id number] Date/Time of Exam: 02/23/2021 9:21 AM Reason For Exam: dyspnea/cough Comparison 02/18/2021. A right upper lobe pulmonary opacity slightly smaller than noted previously. Increasing left basal pl eural effusion since the previous study. Mild cardiac enlargement. The lungs are fully inflated. The mediastinum is not widened. Regional bony structures are intact. XR/XR chest 1V portable [id number] IMPRESSION: 1. Right upper lobe opacity slightly smaller. 2. Increasing left basal pleural effusion with compressive atelectasis of the l eft lower lobe. 3. Mild cardiac enlargement.
--- NOTE | 2021-02-23 10:35 | PM.PN ---
Subjective Subjective: Interval history: poor po intake does not feel like eating BP stable Urine output decreased kidney function also worsening breathing feels better CT abdomen/pelvis IMPRESSION: 1. 4.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 2. Stable mild left pleural fluid collection. 3. Stable severe calcified coronary artery disease. 4. Stable moderate intrathoracic hiatal hernia. 5. Decreased pericardial fluid collection with minimal residual. 6. Mild cardiomegaly. Vitals/I&O/Wt Last Vital Signs Temp 97.7 F 02/23/21 07:13 Pulse 73 02/23/21 07:13 Resp 20 H 02/23/21 07:13 BP 97/44 02/23/21 07:13 Pulse Ox 94 02/23/21 07:13 02/22/21 02/23/21 02/23/21 22:59 06:59 14:59 Intake Total 500 / 1171.25 360 / 1531.25 100 / 100 Output Total 75 / 75 100 / 175 Balance 425 / 1096.25 260 / 1356.25 100 / 100 Weight last 48 hrs Weight 144 lb Weight 144 lb 1.6 oz Physical Exam Const: COMMON NORMALS: no acute distress and patient oriented x3 Resp: EFFORT & INSPECTION: Yes able to speak in complete sentences and Yes symmetric chest movement Cardio: COMMON NORMALS: regular rate and regular rhythm RATE: regular rate RHYTHM: regular rhythm GI: COMMON NORMALS: Soft to palpation and non-tender PALPATION: Yes Soft to palpation Neuro: COMMON NORMALS: patient oriented x3 and CN's II-XII intact bilaterally Psych: COMMON NORMALS: mental status grossly normal and Normal thought process present THOUGHT PROCESS: Normal thought process present Urinary Catheter Management^: Escobar: Cath Placed During This Visit: yes Reason for Continuing Indwelling Catheter: Other Urinary Catheter Date of Insertion: 02/17/21 Urinary Catheter Time of Insertion: 14:30 Data : 02/23/21 04:40 02/23/21 04:40 Micro: Microbiology 02/17/21 16:45 Blood Culture - Final Blood NO GROWTH AFTER 5 DAYS 02/17/21 16:41 Blood Culture - Final Blood NO GROWTH AFTER 5 DAYS A&P Assessment and plan (1) Left renal mass: Status: Acute (2) Right upper lobe pneumonia: Status: Acute (3) Acute respiratory failure with hypoxia: Status: Acute (4) Paroxysmal A-fib: Status: Acute (5) Anemia: Status: Acute (6) Hematochezia due to medication: Status: Acute (7) Acute kidney injury superimposed on chronic kidney disease: Status: Acute (8) CHF (congestive heart failure): Status: Chronic Additional A&P Information #acute respiratory failure --multifactorial 2/2 combined CHF, Afib, PNA #CHF -Echo shows EF of 60%, grade 4 out of 4 diastolic dysfunction, moderate pulmonary hypertension #hypotension -improved --IVF dc'd --hemoglobin stable --gentle fluids #anemia/history of GI bleed --repeat H/H --check stool studies --continue sucralfate --hold PPI until UA back #Acute on CKD --monitor I/O , poor urine output --repeat UA --consult Nephrology --continue sevelamer #renal mass --monitor, consider Urology consult #NSTEMI --no chest pain #afib --rate controlled #hyperkalemia --resolved #hypomagnesemia --replace and recheck #hyponatremia --received diuretics --repeat in AM #abd pain --continue PPI, if persists will check US/CT #elevated INR --monitor Attestations Medical Necessity Statement*: [facility]'s hospital stay will require greater than 2 midnights for respiratory failure Coding Level of Care Code Acute Real Estate Utilization Officer for g Fwd Diagnoses Left renal mass N28.89 Right upper lobe pneumonia J18.9 Acute respiratory failure with hypoxia J96.01 Paroxysmal A-fib I48.0 Anemia D64.9 Hematochezia due to medication K92.1; T50.905A Acute kidney injury superimposed on chronic kidney disease N17.9; N18.9 CHF (congestive heart failure) I50.9
--- NOTE | 2021-02-23 12:34 | PM.CONSULT ---
Providers/Reason For Consult Consulting Physician/Specialty*: clayton khan md/ telenephrology Reason for Consult*: SHAQUILLE on CKD stage 3b+ and hyponatremia Attending Physician: Nino Goodman MD Primary Care Provider: Mary Castellano MD History of Present Illness History of Present Illness Janelle Riley is a 85 year old female w/ CHF- previous noted w/ combined systolic and diastolic dysfunction- EF 45% and diastolic dysfunction. H/O GI bleeds- off a/c even though she has a fib, mild , anemia, pulm HTN, gout. Pt was admitted on 02-17-21 w/ INC SOB. She was treated w/ diuretics, abx and cardizem. Per chart she had an echo w/ EF of 60%, grade 4 out of 4 diastolic dysfunction, moderate pulmonary hypertension. Her admission cr was 2.2 mg/dl- better than her recent baseline. Pt had good diuresis at first. cr leland to 2.4 mg/dl on 02/18, 2.6 on 02/19, 3.1 mg/dl on 02/20, cr 4 to 4.2 mg/dl on 02/22. today she is sob, oliguric and cr is 4.7 mg/dl and renal is called to consult for oliguric SHAQUILLE on CKD. Pt known to renal service from previous admissions. she has required lasix drips and dopamine/ dobutamine Review of Systems General: Reports: 10 or more systems reviewed and unremarkable except in HPI and below Narrative: weak, sob, back pain, poor appetite, not eating, dysuria Meds/Allergies Home Medications and Allergies Home Medications Medication Instructions Recorded Confirmed Last Taken Type pantoprazole 40 mg tablet,delayed 40 mg PO BID@08,17 12/17/19 02/17/21 02/17/21 History release acetaminophen 325 mg tablet 325 mg PO QID PRN 01/14/20 02/17/21 01/30/21 07:30 History 650 MG atorvastatin 40 mg PO BEDTIME@199901/30/21 02/17/21 02/16/21 History bisacodyl [Dulcolax (bisacodyl)] 10 mg [place] DAILY PRN 01/30/21 02/17/21 Unknown History docusate sodium [DOK] 100 mg PO BID@08,199901/30/21 02/17/21 02/17/21 History potassium chloride [Klor-Con M20] 40 meq PO DAILY@0800 01/30/21 02/17/21 02/17/21 History sevelamer carbonate 800 mg PO DAILY@1700 01/30/21 02/17/21 02/16/21 History sucralfate [Carafate] 1 g PO BID@0800,2000 01/30/21 02/17/21 02/17/21 History diltiazem HCl 120 mg PO BID 02/17/21 02/17/21 02/17/21 History furosemide [Lasix] 40 mg PO BID 02/17/21 02/17/21 02/17/21 History prednisone 5 mg PO DAILY 02/17/21 02/17/21 02/17/21 History Allergies Allergy/AdvReac Type Severity Reaction Status Date / Time allopurinol Allergy Severe rash, Verified 02/10/21 10:51 excoriation of skin amiodarone Allergy Intermediate rash Verified 02/10/21 10:51 digoxin Allergy Unknown Unknown Verified 02/10/21 10:51 lisinopril Allergy Unknown Unknown Verified 02/10/21 10:51 milk Allergy Unknown Unknown Verified 02/10/21 10:51 Penicillins Allergy Unknown Unknown Verified 02/10/21 10:51 Current Medications Current Medications Generic Name Dose Route Start Last Admin Trade Name Freq PRN Reason Stop Dose Admin Aspirin 81 mg 02/17/21 15:30 02/23/21 08:46 Aspirin 81 Mg Ec Tablet PO 81 mg DAILY RITA Administration Atorvastatin Calcium 40 mg 02/17/21 20:00 02/22/21 21:15 Atorvastatin 40 Mg Tablet PO 40 mg BEDTIME@1999 RITA Administration Bumetanide 1 mg 02/18/21 12:15 02/20/21 03:34 Bumetanide 0.25 Mg/Ml Sdv 4 Ml IV 1 mg Q8H RITA Administration Diltiazem HCl 90 mg 02/18/21 09:00 02/23/21 09:02 Diltiazem 60 Mg Tablet PO 90 mg Q6H RITA Administration Imipenem/Cilastatin Sodium 250 100 mls @ 200 mls/hr 02/18/21 09:00 02/23/21 09:20 mg/ Sodium Chloride IV Infused Q12H RITA Infusion Protocol Linezolid 600 mg in 300 mls @ 300 mls/hr 02/19/21 12:00 02/23/21 11:49 Zyvox Premix IV 300 mls/hr Q12H RITA Administration Protocol Dopamine HCl/Dextrose 400 mg in 250 mls @ 7.149 mls/hr 02/19/21 13:00 02/19/21 13:29 Intropin Drip IV 3 mcg/kg/min CONT RITA 7.1 mls/hr Administration Protocol 3 MCG/KG/MIN Metolazone 5 mg 02/18/21 09:00 02/19/21 08:01 Metolazone 5 Mg Tablet PO 5 mg DAILY RITA Administration Midodrine 10 mg 02/17/21 21:00 02/23/21 08:46 Midodrine 5 Mg Tablet PO 10 mg TID RITA Administration Ondansetron HCl 4 mg 02/17/21 14:53 02/20/21 11:28 Ondansetron 2 Mg/Ml Sdv 2 Ml IVP 4 mg Q8H PRN Administration vomiting, or N/V if npo Sevelamer Carbonate 800 mg 02/17/21 17:00 02/22/21 16:58 Sevelamer 800 Mg Tablet PO 800 mg DAILY@1700 RITA Administration Sucralfate 1 gm 02/17/21 20:00 02/23/21 08:46 Sucralfate 1 Gm Tablet PO 1 gm BID@0800,1999 RITA Administration PFSH Acute PFSH: Medical History LIZABETH inhibitor intolerance Anemia Aortic stenosis Mild Cardiomyopathy 35-40% CHF (congestive heart failure) Chronic kidney disease, stage 4 (severe) COPD (chronic obstructive pulmonary disease) Gout Hemoptysis Left renal mass Paroxysmal A-fib Pulmonary hypertension Surgical History History of cardiac catheterization History of cataract surgery Bilateral S/P bladder repair Bladder suspension S/P hysterectomy / BSO Family History Mother CAD (coronary artery disease) Myocardial infarction Father CAD (coronary artery disease) Social History Smoking and tobacco status: former smoker Quit status (tobacco): has quit using tobacco Year quit tobacco: 1999 Former quit date comment: [id number] history prior to quitting Alcohol intake: never Marital status: / Current occupational status: retired Vitals/I&O/Wt Last Vital Signs Temp 97.6 F 02/23/21 10:49 Pulse 65 02/23/21 10:49 Resp 16 02/23/21 10:49 BP 90/49 02/23/21 10:49 Pulse Ox 97 02/23/21 10:49 02/22/21 02/23/21 02/23/21 22:59 06:59 14:59 Intake Total 500 / 1171.25 360 / 1531.25 100 / 100 Output Total 75 / 75 100 / 175 Balance 425 / 1096.25 260 / 1356.25 100 / 100 Weight last 48 hrs Weight 65.317 kg Weight 65.363 kg Physical Exam Narrative: EXAM NARRATIVE: elderly lady in bed NC02- uncomfortable vs noted heent- nc/at, eomi, anicteric neck sipple lungs wheexing, crackles, dull bases heart- irreg irreg, +Systolic murmur abd soft, nt, nd, +BS ext b/l edema skin red neuro- a,a, o x 2+ + bailey catheter Urinary Catheter Management^: Bailey: Cath Placed During This Visit: yes Reason for Continuing Indwelling Catheter: Other Urinary Catheter Date of Insertion: 02/17/21 Urinary Catheter Time of Insertion: 14:30 Data Micro: Micro: Microbiology 02/17/21 16:45 Blood Culture - Fi nal Blood NO GROWTH AFTER 5 DAYS 02/17/21 16:41 Blood Culture - Fi nal Blood NO GROWTH AFTER 5 DAYS A&P Additional A&P Information 85 yr old female 1. RUL pna - cont abx -consider chest ct scan -renal dose abx 2. CHF - SOB- likely from CHF and PNA -check venous dopplers -check ABG -bnp [id number] -consider left sided thoracentesis -will start lasix and albumin 3. CKD stage 4 -from CRS, DM, age 4. SHAQUILLE - likely CRS vs ATN vs prerenal -had episodes of SHAQUILLE- on midodrine -check urine lytes -check ck 5. Q renal mass vs renal cyst- CT scan-. 4.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 6. hyponatremia- check tsh and ur lytes 7. a fib well controlled 8. met acidosis - AG 11 is high given albumin of 1.9- likely from SHAQUILLE on ckd 9. anemia - check iron studies- h/o GI bleed 10. renal osteodystrophy- elevated phos noted- binders -low ca- give tums -check pth 11. replace magnesium seen and examined w/ RN- teleheath visit d w/ Dr. Arambula in detail Consult Attestations Medical Necessity Statement: shaquille and sob, chf Time Spent in Patient Care: Greater than 35 minutes Coding Level of Care Code Acute Air Value Tester for Anatg Patricio
--- NOTE | 2021-02-23 13:16 | USCV_ITS ---
Maxie, [place] Age: 85 Gender: F : 1935 Exam Date: 02/23/2021 15:35 Ordering Phys: Lele Levy MD Technologist: Jaelyn Edwards Exam Location: [facility] [place]_ Indication: SOB, EDEMA HISTORY: sob, edema. prior negative study 01/19/2021 PROCEDURES: Bilaterally, the common femoral, superficial femoral, profunda femoral, popliteal, posterior tibial, greater saphenous veins, and the peroneal trunk were identified and interrogated in the standard fashion. These veins were found to be easily compressible with spontaneous blood flow. FINDINGS: Normal 2-D Doppler and augmentation and compressibility throughout the lower extremity venous structures. Additional imaging through the proximal calf veins also reveals no thrombus. Limited evaluation of the greater saphenous vein is patent with no thrombus. CONCLUSIONS No DVT bilateral lower extremities. Dr. Jasmina Martin DO (Electronically Signed) Final Date: 24 Feb 2021 09:31 S
--- NOTE | 2021-02-23 13:34 | CTR_ITS ---
PROCEDURE INFORMATION: Exam: CT Chest Without Contrast; Diagnostic Exam date and time: 02/23/2021 2:45 PM Age: 85 years old Clinical indication: Shortness of breath; Additional info: Hypoxemia. Copd, chf, SOB, L basilar pleural effusion TECHNIQUE: Imaging protocol: Diagnostic computed tomography of the chest without contrast. Total images: 243 Radiation optimization: All CT scans at this facility use at least one of these dose optimization techniques: automated exposure control; mA and/or kV adjustment per patient size (includes targeted exams where dose is matched to clinical indication); or iterative reconstruction. COMPARISON: CT chest con [id number] 01/08/2021 11:51 PM RADIATION DOSE METRICS: Total DLP (mGy-cm): 498.62 FINDINGS: Thyroid: Stable thyroid goiter. No follow-up recommended. Lungs: Interval development of a anterior segment right upper lobe spiculated mass with evidence of early cavitation dimensions approximately 37 mm x 25 mm x 34 mm. Concern for primary lung carcinoma. Segmental volume left lower lobe and subsegmental apicoposterior segment left upper lobe consolidated alveolar airspace disease which could reflect compressive atelectasis, focal edema, and/or pneumonia. Minimal compressive atelectasis right lower lobe. Mild centrilobular emphysema with COPD/chronic bronchitis. Antecedent granulomatous disease. Pleural spaces: Moderate volume left pleural effusion. Small volume right pleural effusion. Heart: Cardiomegaly. Small volume pericardial effusion. Advanced 3 vessel coronary artery disease. Calcified mitral annulus. Evidence of pulmonary hypertension. Mediastinal space: Large hiatal hernia. Aorta: The thoracic aorta is nonaneurysmal. Moderate arterial sclerotic disease. Lymph nodes: Moderately prominent middle mediastinal lymph nodes. Dominant node measures approximately 16 mm in the short axis. Associated calcified complexes of antecedent granulomatous disease. Bones/joints: Mild scoliotic curvature of the spine. Age-appropriate degenerative disease degenerative disc disease. Osteopenia/osteoporosis. No visible osteolytic or osteoblastic destructive process. Soft tissues: Unremarkable for age. CT/CT chest con [id number] IMPRESSION: 1. Interval development of a anterior segment right upper lobe spiculated mass with evidence of early cavitation dimensions approximately 37 mm x 25 mm x 34 mm. Concern for primary lung carcinoma. 2. Moderate volume left pleural effusion and small volume right. 3. Left upper and left lower lobe consolidated alveolar airspace disease. 4. Mild centrilobular emphysema with associated COPD/chronic bronchitis. 5. Small volume pericardial effusion. 6. Advanced 3 vessel coronary artery disease. 7. Middle mediastinal prominent lymph nodes. 8. Other nonurgent, nonemergent, chronic, and age related findings as detailed in text above. Radiation Dose CTDIVOL = (mGy): DLP = 498.62 (mGy-cm)
[2021-02-23 14:11] LABS: ABG PCO2 34.8 mmHg (35-45); ABG PH Result 7.39 (7.35-7.45); Alveolar-Arterial Oxygen Gradi 5.1 mmHg (5-10); Arterial Blood Gas Hematocrit 29.4 % (37-47); Base Excess ABG -3.7 mmol/L (-2.0-2.0); Blood Gas Allen Test Pos; Blood Gas Sample Site Radial, right; Blood Gas Sample Type Arterial; Carboxyhemoglobin 1.1 %THgb (0.4-20.1); HCO3 ABG 20.8 mmol/L (22-26); HGB O2 Sat 90.9 % (95-100); Methemoglobin 0.9 % (0.4-1.5); Oxygen Device NC; Oxygen Saturation ABG 92.8; PO2 ABG 67.1 mmHg (80.0-100.0); Potassium Level - ABG 4.6 mmol/L (3.5-5.0); Total Hemoglobin 9.6 g/dL (12-16)
--- NOTE | 2021-02-23 14:39 | PC.NURSE ---
Pt IV is infiltrated and leaking. attempted x3 which is unsuccessful. house sup is unavailable. called surgery for picc placement. they are not available until tomorrow for placement. called aneasthesiologist.
[2021-02-23 16:10] LABS: Ferritin 286 ng/mL (15-150); Iron 51 ug/dL (37-145); Thyroid Stimulating Hormone 0.58 uIU/mL (0.27-4.20); Total Iron Binding Capacity 85 mcg/dl; Unsaturated Iron Binding 34 ug/dL (112-347)
[2021-02-23 16:24] LABS: Cortisol Random 16.73 ug/dL (2.47-19.5)
[2021-02-23 16:25] LABS: Hepatitis C Virus Antibody Non-Reactive (Nonreactive)
--- NOTE | 2021-02-23 18:42 | PM.CONSULT ---
Providers/Reason For Consult Consulting Physician/Specialty*: Dr. Morin, cardiology Reason for Consult*: Congestive heart failure, decreased urine output and worsening renal function. Attending Physician: Nino Goodman MD Primary Care Provider: Mary Castellano MD History of Present Illness History of Present Illness Janelle Riley is a 85 year old female [place] resident with past medical history of congestive heart failure (heart failure with improved ejection fraction= 45% on echo with contrast on 07 January 2021), nonischemic cardiomyopathy, persistent atrial fibrillation not on anticoagulation given h/o recurrent hemoptysis, concern for upper GI bleed, pulmonary hypertension (previously sent to [place] pulmonary hypertension clinic; declined subsequent follow-up), mild aortic stenosis, chronic kidney disease and anemia. She was hospitalized this time with shortness of breath edema and is being treated for right upper lobe pneumonia A. fib with RVR and CHF exacerbation. She has had recurrent hospitalizations this year. Her creatinine on admission was 2.2 which increased with attempted diuresis to 4.7. She was initially started on bumex 1 mg twice a day with metolazone. She was started on midodrine that was increased to 10 mg TID. She was placed on dopamine @3 for 2 days without any diuresis. Length of stay intake 7.3 L and output of 3.1 L with positive balance of 4.2 L. She denies any complains presently. She is laying in bed slightly propped up. Review of Systems General: Reports: 10 or more systems reviewed and unremarkable except in HPI and below Const: Reports: fatigue and malaise Card: Reports: palpitations, irregular heart rhythm and edema; Denies: chest pain Resp: Reports: dyspnea and productive cough GI: Denies: abdominal pain, nausea, vomiting, hematochezia or melena : Denies: flank pain, difficulty voiding or hematuria Musc: Denies: neck pain or back pain Skin/Breast: Denies: rash Neuro: Denies: headache(s) Paul/Lymph: Denies: easy bleeding Meds/Allergies Home Medications and Allergies Home Medications Medication Instructions Recorded Confirmed Last Taken Type pantoprazole 40 mg tablet,delayed 40 mg PO BID@08,17 12/17/19 02/17/21 02/17/21 History release acetaminophen 325 mg tablet 325 mg PO QID PRN 01/14/20 02/17/21 01/30/21 07:30 History 650 MG atorvastatin 40 mg PO BEDTIME@199901/30/21 02/17/21 02/16/21 History bisacodyl [Dulcolax (bisacodyl)] 10 mg DC DAILY PRN 01/30/21 02/17/21 Unknown History docusate sodium [DOK] 100 mg PO BID@0800,199901/30/21 02/17/21 02/17/21 History potassium chloride [Klor-Con M20] 40 meq PO DAILY@0800 01/30/21 02/17/21 02/17/21 History sevelamer carbonate 800 mg PO DAILY@17001/30/21 02/17/21 02/16/21 History sucralfate [Carafate] 1 g PO BID@0800,199901/30/21 02/17/21 02/17/21 History diltiazem HCl 120 mg PO BID 02/17/21 02/17/21 02/17/21 History furosemide [Lasix] 40 mg PO BID 02/17/21 02/17/21 02/17/21 History prednisone 5 mg PO DAILY 02/17/21 02/17/21 02/17/21 History Allergies Allergy/AdvReac Type Severity Reaction Status Date / Time allopurinol Allergy Severe rash, Verified 02/10/21 10:51 excoriation of skin amiodarone Allergy Intermediate rash Verified 02/10/21 10:51 digoxin Allergy Unknown Unknown Verified 02/10/21 10:51 lisinopril Allergy Unknown Unknown Verified 02/10/21 10:51 milk Allergy Unknown Unknown Verified 02/10/21 10:51 Penicillins Allergy Unknown Unknown Verified 02/10/21 10:51 Current Medications Current Medications Generic Name Dose Route Start Last Admin Trade Name Freq PRN Reason Stop Dose Admin Aspirin 81 mg 02/17/21 15:30 02/23/21 08:46 Aspirin 81 Mg Ec Tablet PO 81 mg DAILY RITA Administration Atorvastatin Calcium 40 mg 02/17/21 20:00 02/22/21 21:15 Atorvastatin 40 Mg Tablet PO 40 mg BEDTIME@1999 RITA Administration Diltiazem HCl 90 mg 02/18/21 09:00 02/23/21 09:02 Diltiazem 60 Mg Tablet PO 90 mg Q6H RITA Administration Imipenem/Cilastatin Sodium 250 100 mls @ 200 mls/hr 02/18/21 09:00 02/23/21 09:20 mg/ Sodium Chloride IV Infused Q12H RITA Infusion Protocol Linezolid 600 mg in 300 mls @ 300 mls/hr 02/19/21 12:00 02/23/21 16:33 Zyvox Premix IV Infused Q12H RITA Infusion Protocol Dopamine HCl/Dextrose 400 mg in 250 mls @ 7.149 mls/hr 02/19/21 13:00 02/19/21 13:29 Intropin Drip IV 3 mcg/kg/min CONT RITA 7.1 mls/hr Administration Protocol 3 MCG/KG/MIN Albumin Human 25 gm in 100 mls @ 60 mls/hr 02/23/21 14:00 02/23/21 18:31 Albumin IV Infused Q8H RITA Infusion Metolazone 5 mg 02/18/21 09:00 02/19/21 08:01 Metolazone 5 Mg Tablet PO 5 mg DAILY RITA Administration Midodrine 10 mg 02/17/21 21:00 02/23/21 15:20 Midodrine 5 Mg Tablet PO 10 mg TID RITA Administration Ondansetron HCl 4 mg 02/17/21 14:53 02/20/21 11:28 Ondansetron 2 Mg/Ml Sdv 2 Ml IVP 4 mg Q8H PRN Administration vomiting, or N/V if npo Sevelamer Carbonate 800 mg 02/17/21 17:00 02/22/21 16:58 Sevelamer 800 Mg Tablet PO 800 mg DAILY@1700 RITA Administration Sucralfate 1 gm 02/17/21 20:00 02/23/21 08:46 Sucralfate 1 Gm Tablet PO 1 gm BID@0800,2000 RITA Administration PFSH Acute PFSH: Medical History LIZABETH inhibitor intolerance Anemia Aortic stenosis Mild Cardiomyopathy 35-40% CHF (congestive heart failure) Chronic kidney disease, stage 4 (severe) COPD (chronic obstructive pulmonary disease) Gout Hemoptysis Left renal mass Paroxysmal A-fib Pulmonary hypertension Surgical History History of cardiac catheterization History of cataract surgery Bilateral S/P bladder repair Bladder suspension S/P hysterectomy / BSO Family History Mother CAD (coronary artery disease) Myocardial infarction Father CAD (coronary artery disease) Social History Smoking and tobacco status: former smoker Quit status (tobacco): has quit using tobacco Year quit tobacco: 1999 Former quit date comment: [id number] history prior to quitting Alcohol intake: never Marital status: / Current occupational status: retired Vitals/I&O/Wt Last Vital Signs Temp 97.9 F 02/23/21 16:00 Pulse 73 02/23/21 16:00 Resp 23 H 02/23/21 16:00 BP 113/53 02/23/21 16:00 Pulse Ox 96 02/23/21 16:00 02/23/21 02/23/21 02/23/21 06:59 14:59 22:59 Intake Total 360 / 1531.25 100 / 100 572 / 672 Output Total 100 / 175 Balance 260 / 1356.25 100 / 100 572 / 672 Weight last 48 hrs Weight 144 lb Weight 144 lb 1.6 oz Physical Exam Narrative: EXAM NARRATIVE: GENERAL: overweight elderly woman in no acute distress HEENT: Extraocular movement intact. No icterus. +pallor NECK: + JVD , No masses CARDIOVASCULAR SYSTEM: S1-S2 irregular. No S3 or S4 present. No murmur appreciated RESPIRATORY SYSTEM: Decreased breath sounds at bases. + wheezes and rales. ABDOMEN: Soft, nontender and obese. Normal bowel sounds present. EXTREMITIES: No cyanosis. 2+ edema in legs. legs pretty tender to touch STAIN SPRAYER: Patient is alert oriented ?3. No focal neurological deficits. SKIN: Normal turgor and temperature. No breakdown, rash or nail changes noted. PSYCH: Normal insight and judgment. Urinary Catheter Management^: Escobar: Cath Placed During This Visit: yes Reason for Continuing Indwelling Catheter: Other Urinary Catheter Date of Insertion: 02/17/21 Urinary Catheter Time of Insertion: 14:30 Data Micro: Micro: Microbiology 02/17/21 16:45 Blood Culture - Fi nal Blood NO GROWTH AFTER 5 DAYS 02/17/21 16:41 Blood Culture - Fi nal Blood NO GROWTH AFTER 5 DAYS Other Data: Attestation for Other Data: I personally reviewed and interpreted the following: Other data: Coronary angiogram 18 March 2019: Diagnostic Cath Status: Elective Diagnostic Findings LM has 0% stenosis. LAD has 0% stenosis. CX has 0% stenosis. mRCA: Mild 30% stenosis, TONNY: 3 flow. Coronary angiography shows right dominance. Conclusions There is mild coronary artery disease with one vessel disease. Transthoracic echocardiogram 29 Jan 2019: CONCLUSIONS 1. Small left ventricular cavity. Moderate concentric left ventricular hypertrophy. Moderately decreased left ventricular systolic function. Left ventricular ejection fraction is estimated at 35-40 %. Diffuse hypokinesis. 2. Upper normal right ventricular size and low-normal systolic function. 3. Moderately increased left atrial size. 4. Mild pulmonary hypertension with pulmonary artery pressure estimated at 46 mm Hg. 5. Mild to moderate tricuspid valve regurgitation. 6. Mild aortic valve stenosis, mean gradient 6.8 mmHg, SEBAS 1.1 cm squared. No aortic valve regurgitation. 7. When compared to previous study dated 05/01/2017, left ventricular systolic function has decreased. Transthoracic echocardiogram 06 January 2021 CONCLUSIONS 1-Normal left ventricular cavity size. Normal left ventricular systolic function. Left ventricular ejection fraction is estimated at 60 %. Echogenic mass observed in the left ventricle could be subvalvular calcified apparatus in these suboptimal images, further exploration with contrast echo or transesophageal echocardiogram performed if clinically indicated for suspicion of endocarditis or thromboembolic phenomena. Grade IV/IV diastolic dysfunction (irreversible restrictive filling pattern), severely elevated filling pressures. 2-Right ventricle not well visualized. Moderate pulmonary hypertension, RVSP 52.7 mmHg. 3-Valves were not well visualized due to suboptimal images. 4-There is no pericardial effusion. 5-When compared to the prior echocardiogram dated January 30, 2019 these images are of suboptimal quality however left ventricle ejection appear to be improved from moderately reduced 40% to normal 60% now. Limited echocardiogram 07 January 2021 CONCLUSIONS Limited echo to assess LV function and subvalvular apparatus of the LV. Left-ventricular ejection fraction to moderately reduced 45%. There is a global hypokinesis. There is thickening of subvalvular apparatus of the mitral valve which is less likely to be vegetation and mostly it is due to calcification. Clinical correlation advised. When compared to the prior echocardiogram there is no significant change. CT chest 23 Feb 2021 IMPRESSION: 1. Interval development of a anterior segment right upper lobe spiculated mass with evidence of early cavitation dimensions approximately 37 mm x 25 mm x 34 mm. Concern for primary lung carcinoma. 2. Moderate volume left pleural effusion and small volume right. 3. Left upper and left lower lobe consolidated alveolar airspace disease. 4. Mild centrilobular emphysema with associated COPD/chronic bronchitis. 5. Small volume pericardial effusion. 6. Advanced 3 vessel coronary artery disease. 7. Middle mediastinal prominent lymph nodes. 8. Other nonurgent, nonemergent, chronic, and age related findings as detailed in text above. EKG with atrial fibrillation. Right axis deviation. Low QRS voltage in extremity leads. Anteroseptal TX of indeterminate age. A&P Assessment and plan (1) CHF (congestive heart failure): Last known LVEF=45%. -started back on bumex with albumin by nephrology. -closely monitor UO. Status: Chronic Qualifiers: Heart failure type: systolic Heart failure chronicity: acute on chronic Qualified Code(s): I50.23 - Acute on chronic systolic (congestive) heart failure (2) Acute kidney injury superimposed on chronic kidney disease: SHAQUILLE on CKD stage 4 Status: Acute (3) Atrial fibrillation with rapid ventricular response: Status: Acute (4) Elevated troponin: Status: Acute (5) Anemia: Status: Acute Additional A&P Information Right upper lung spiculated mass with cavitation Right upper lung PNA: On antibiotics per primary team Left renal mass Hyponatremia Hypomagnesmia : replaced NSVT on telemetry Moderate left and small right pleural effusion Small pericardial effusion on CT chest MIld Thank you for allowing me to participate in patient's care. Please fell free to call with questions or concerns. Consult Attestations Time Spent in Patient Care: Greater than 35 minutes (>than 50% of time spent in counselling and/or direct pt care on unit). Coding Level of Care Code Acute Supply Assistant for Chg Fwd Diagnoses CHF (congestive heart failure) I50.23 Heart failure type: systolic Heart failure chronicity: acute on chronic Acute kidney injury superimposed on chronic kidney disease N17.9; N18.9 Atrial fibrillation with rapid ventricular response I48.91 Elevated troponin R77.8 Anemia D64.9
[2021-02-23] MEDS: sevelamer 800 mg Tablet PO (18:48)
[2021-02-23] MEDS: atorvastatin 40 mg Tablet PO (21:46)
[2021-02-23] MEDS: bumetanide 0.25 mg/mL SDV 4 mL 2 MG IV (21:46)
[2021-02-24] VITALS (11 sets, daily range): BP systolic 98–115; BP diastolic 63–72; PULSE 77–109; RESP 15–20; TEMP 36.2–36.6; O2SAT 90–94
[2021-02-24] MEDS: acetaminophen 325 mg Tablet 650 MG PO (00:33)
[2021-02-24] MEDS: bumetanide 0.25 mg/mL SDV 4 mL 2 MG IV ×2 (04:05→08:32)
[2021-02-24] MEDS: linezolid premix 600 MG/300 ML PREMIX 300 MG IV (04:05)
[2021-02-24 05:47] LABS: Bilirubin Urine 1+ (Negative); Blood Urine 2+ (Negative); Glucose Urine UA Norm (Normal); Ketones Urine 1+ (Negative); Leukocyte Esterase Urine 2+ (Negative); Nitrate Urine Negative (Negative); Protein Urine Trace (Negative); Urine Appearance Hazy (CLEAR); Urine Color Yellow (Yellow); Urobilinogen Urine 1 mg/dL (Negative); pH Urine 5 (5-7)
[2021-02-24 05:48] LABS: Bacteria Urine 1+ /hpf; RBC Urine 15-25 /hpf (0-2)
[2021-02-24 05:49] LABS: Add Urine Culture? No; Amorphous Sediment Urine 2+ /hpf
[2021-02-24 05:56] LABS: Alanine Aminotransferase 9 U/L (0-33); Albumin Level 2.5 g/dL (3.5-5.2); Alkaline Phosphatase 98 IU/L (35-105); Anion Gap 17.3 (5-19); Aspartate Amino Transferase 13 U/L (0-32); Blood Urea Nitrogen 69 mg/dL (8-23); Calcium 6.9 mg/dL (8.5-10.5); Carbon Dioxide 21 mmol/L (22-29); Chloride 96 mmol/L (98-107); Globulin 2.3 g/dL (1.3-4.6); Glucose 133 mg/dL (65-115); Magnesium 1.8 mg/dL (1.7-2.3); Osmolality Calculated 292 mOsm/kg (285-295); Phosphorus 5.6 mg/dL (2.5-4.5); Potassium 4.3 mmol/L (3.5-5.1); Sodium 130 mmol/L (136-145); Total Bilirubin 0.6 mg/dL (0.15-1.2); Total Protein 4.8 g/dL (6.6-8.7)
[2021-02-24 06:06] LABS: 25 Hydroxy Vitamin D 33 ng/mL (30-100)
[2021-02-24 06:34] LABS: Parathyroid Hormone 144.7 pg/mL (15-65)
--- NOTE | 2021-02-24 07:04 | P.PN_ITS ---
Subjective Subjective: Interval history: feels better. less sob. still w/ edema and poor uop Medications: Reviewed: Yes Medication Review Details: Current Medications Acetaminophen (Acetaminophen 325 Mg Tablet) 650 mg PO Q6H PRN PRN Reason: Mild/Mod Pain Or Temp >/= 101 Last Admin: 02/24/21 00:33 Dose: 650 mg Documented by: Albuterol/Ipratropium (Ipratropium-Albuterol 3 Ml Neb) 3 ml INHALATION QID.RESPIRATORY PRN PRN Reason: SHORTNESS OF BREATH Aspirin (Aspirin 81 Mg Ec Tablet) 81 mg PO DAILY [facility] Last Admin: 02/23/21 08:46 Dose: 81 mg Documented by: Atorvastatin Calcium (Atorvastatin 40 Mg Tablet) 40 mg PO BEDTIME@1999 [facility] Last Admin: 02/23/21 21:46 Dose: 40 mg Documented by: Bumetanide (Bumetanide 0.25 Mg/Ml Sdv 4 Ml) 2 mg IV Q8H [facility] Last Admin: 02/24/21 04:05 Dose: 2 mg Documented by: Diltiazem HCl (Diltiazem 60 Mg Tablet) 90 mg PO Q6H [facility] Last Admin: 02/23/21 09:02 Dose: 90 mg Documented by: Imipenem/Cilastatin Sodium 250 (mg/ Sodium Chloride) 100 mls @ 200 mls/hr IV Q12H [facility]; Protocol Last Infusion: 02/23/21 22:39 Dose: Infused Documented by: Linezolid (Zyvox Premix) 600 mg in 300 mls @ 300 mls/hr IV Q12H [facility]; Protocol Last Infusion: 02/24/21 05:50 Dose: Infused Documented by: Dopamine HCl/Dextrose (Intropin Drip) 400 mg in 250 mls @ 7.149 mls/hr IV CONT [facility]; Protocol Last Admin: 02/19/21 13:29 Dose: 3 mcg/kg/min, 7.1 mls/hr Documented by: Albumin Human (Albumin) 25 gm in 100 mls @ 60 mls/hr IV Q8H [facility] Last Admin: 02/24/21 06:06 Dose: 60 mls/hr Documented by: Magnesium Oxide (Magnesium Oxide 400 Mg Tablet) 400 mg PO ONCE RITA Metolazone (Metolazone 5 Mg Tablet) 5 mg PO DAILY [facility] Last Admin: 02/19/21 08:01 Dose: 5 mg Documented by: Midodrine (Midodrine 5 Mg Tablet) 10 mg PO TID [facility] Last Admin: 02/23/21 21:45 Dose: 10 mg Documented by: Naloxone HCl (Naloxone 0.4 Mg/Ml Sdv) 0.1 mg IVP Q2M PRN PRN Reason: OPIATERV Ondansetron HCl (Ondansetron 2 Mg/Ml Sdv 2 Ml) 4 mg IVP Q8H PRN PRN Reason: vomiting, or N/V if npo Last Admin: 02/20/21 11:28 Dose: 4 mg Documented by: Sevelamer Carbonate (Sevelamer 800 Mg Tablet) 800 mg PO DAILY@1700 [facility] Last Admin: 02/23/21 18:48 Dose: 800 mg Documented by: Sucralfate (Sucralfate 1 Gm Tablet) 1 gm PO BID@0800,2000 [facility] Last Admin: 02/23/21 21:46 Dose: 1 gm Documented by: Vitals/I&O/Wt Last Vital Signs Temp 98 F 02/24/21 03:50 Pulse 84 02/24/21 06:00 Resp 20 H 02/24/21 03:50 BP 109/63 02/24/21 03:50 Pulse Ox 94 02/24/21 03:50 02/23/21 02/24/21 02/24/21 22:59 06:59 14:59 Intake Total 732 / 932 460 / 1392 Output Total 150 / 150 Balance 732 / 932 310 / 1242 Weight last 48 hrs Weight 67.449 kg Weight 67.767 kg Weight 65.317 kg Physical Exam Narrative: EXAM NARRATIVE: elderly lady in bed NC02- comfortable vs noted heent- nc/at, eomi, anicteric neck supple lungs dull bases, otherwise clear heart- irreg irreg, +Systolic murmur abd soft, nt, nd, +BS ext b/l edema skin red neuro- a,a, o x 2+ + bailey catheter Urinary Catheter Management^: Bialey: Cath Placed During This Visit: yes Reason for Continuing Indwelling Catheter: Other Urinary Catheter Date of Insertion: 02/17/21 Urinary Catheter Time of Insertion: 14:30 Data : 02/23/21 04:40 02/24/21 05:18 A&P Additional A&P Information 85 yr old female 1. RUL pna - cont abx -chest ct scan noted- consider pulm eval. Q bronch IMPRESSION: 1. Interval development of a anterior segment right upper lobe spiculated mass with evidence of early cavitation dimensions approximately 37 mm x 25 mm x 34 mm. Concern for primary lung carcinoma. 2. Moderate volume left pleural effusion and small volume right. 3. Left upper and left lower lobe consolidated alveolar airspace disease. 4. Mild centrilobular emphysema with associated COPD/chronic bronchitis. 5. Small volume pericardial effusion. 6. Advanced 3 vessel coronary artery disease. 7. Middle mediastinal prominent lymph nodes. 2. CHF - SOB- likely from CHF, lung mass and PNA -check venous dopplers - ABG - 7. -bnp [id number] -consider left sided thoracentesis -not urinating w/ bumex and lasix -likely from SHAQUILLE -oxygenation looks improved today -dec bumex and albumin to daily -monitor for renal recovery 3. CKD stage 4 -from CRS, DM, age 4. SHAQUILLE - likely CRS vs ATN vs prerenal -had episodes of SHAQUILLE- on midodrine -check urine lytes -check ck u/a w/ 2+ blood1+ ketones, trace prot -cr hopefully plateauing soon -if develops sob and diuretic resistant, then consider dialysis 5. Q renal mass vs renal cyst- CT scan-. 4.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 6. hyponatremia- tsh 0.5 - await ur lytes -can be from lung ca 7. a fib well controlled 8. met acidosis - likely startvation ketoacidosis and from SHAQUILLE on ckd 9. anemia - high iron sat of 60%- ferritin 286- h/o GI bleed -concern can be from cancer 10. renal osteodystrophy- elevated phos noted- binders -low ca- give tums - pth 144 11. replace magnesium seen and examined w/ RN- teleheath visit Attestations Medical Necessity Statement*: SHAQUILLE, CKD, lung mass Time Spent in Patient Care: 16 - 35 minutes Coding Level of Care Code Acute Presto Log Operator for Anatg Patricio
[2021-02-24 07:14] LABS: Basophils % 0.4 %; Eosinophils # 0.1 10^3/uL (0.0-0.8); Eosinophils % 1.5 %; Hematocrit 24.3 % (37.0-47.0); Hemoglobin 7.4 g/dL (11.5-15.3); Lymphocytes % 13.3 %; Mean Corpuscular HGB Conc 30.5 g/dL (30.0-36.0); Mean Corpuscular Hemoglobin 27.8 pg (28.0-34.0); Mean Corpuscular Volume 91.4 fL (81-99); Monocytes # 0.9 10^3/uL (0.2-0.9); Monocytes % 11.5 %; Neutrophils # 5.36 10^3/uL (1.8-7.7); Neutrophils % 72.2 %; Nucleated Red Blood Cells % 0 %; Platelet Count 210 10^3/cmm (130-400); Red Blood Count 2.66 10^6/uL (4.1-5.3); Red Cell Distribution Width 19.1 % (12.1-15.1); White Blood Count 7.4 10^3/uL (4.0-10.0)
[2021-02-24] MEDS: ipratropium-albuterol 3 mL Neb INHALATION (07:45)
[2021-02-24] MEDS: aspirin 81 mg EC Tablet PO (08:32)
[2021-02-24] MEDS: midodrine 5 mg TABLET 10 MG PO (08:32)
[2021-02-24] MEDS: calcium carbonate 500 mg Chew Tablet 1000 MG PO ×2 (08:33→17:24)
[2021-02-24] MEDS: sucralfate 1 gm Tablet PO ×2 (08:33→20:58)
[2021-02-24 09:02] LABS: PROTEIN, TOTAL 4.6 g/dL (6.1-8.1)
--- NOTE | 2021-02-24 09:51 | PC.SOCIAL ---
IMM Updated Updated pt on Pg 2 IMM. No questions voiced. Provided pt a copy. Signed, dated, & timed copy in chart.
--- NOTE | 2021-02-24 09:59 | PC.NURSE ---
PICC UNABLE TO GAIN ACCESS FOLLOWING ATTEMPT TO RIGHT CEPHALIC AND RIGHT BASILIC VEINS. FOLLOWING ASSESSMENT OF LEFT UPPER ARM I DO NOT FIND ANY VEINS TO ATTEMPT ACCESS THEY ARE <1CM.
--- NOTE | 2021-02-24 10:14 | PC.NURSE ---
pt at pain leavel 3 til we go to move or touch her than shes at bout an 8 when touched or moved
--- NOTE | 2021-02-24 10:19 | PC.NURSE ---
Patient denies pain except when moving or turning in bed. Patient states her legs and butocks hurt when we clean or turn her. Patient refuses pain medicine. Says she would consider taking tylenol.
[2021-02-24] MEDS: morphine 4 mg/mL SDV 1 mL 1 MG IVP (12:38)
--- NOTE | 2021-02-24 13:04 | XR_ITS ---
WS: [id number] Exam: XR chest 1V portable [id number] Date/Time of Exam: 02/24/2021 1:05 PM Reason For Exam: central line placement Comparison 02/23/2021. A right IJ catheter has been placed and appears to end in the lower one third of the SVC. Again noted is a right upper lobe opacity that shows little change since previous exam. Increasing left basal pl eural effusion is noted with compressive atelectasis. The heart is enlarged. No pneumothorax. XR/XR chest 1V portable [id number] IMPRESSION: 1. Right IJ catheter in satisfactory position ending in the lower one third of the SVC. 2. Right upper lobe pulmonary opacity unchanged. 3. Increasing left basal pleural effusion with compressive atelectasis. Cardiac enlargement.
--- NOTE | 2021-02-24 13:05 | P.PN_ITS ---
Subjective Subjective: Interval history: She complains of aches, pains and not feeling well. total intake 1530 ml and TO 175 ml, + 4Lb. Medications: Reviewed: Yes Vitals/I&O/Wt Last Vital Signs Temp 97.5 F L 02/24/21 07:05 Pulse 109 H 02/24/21 07:51 Resp 16 02/24/21 12:38 BP 98/64 02/24/21 07:05 Pulse Ox 93 02/24/21 07:45 02/23/21 02/24/21 02/24/21 22:59 06:59 14:59 Intake Total 732 / 932 460 / 1392 200 / 200 Output Total 150 / 150 Balance 732 / 932 310 / 1242 200 / 200 Weight last 48 hrs Weight 148 lb 11.2 oz Weight 149 lb 6.4 oz Weight 144 lb Physical Exam Narrative: EXAM NARRATIVE: GENERAL: overweight elderly woman in no acute dis tress HEENT: Extraocular movement intact. No icterus. +pallor NECK: + JVD , No masses CARDIOVASCULAR SYSTEM: S1-S2 irregular. No S3 or S4 present. systolic murmur + RESPIRATORY SYSTEM: Decreased breath sounds at bases. + wheezes and rales. ABDOMEN: Soft, nontender and obese. Normal bowel sounds present. EXTREMITIES: No cyanosis. 3+ edema in legs. legs pretty tender to touch LINING FINISHER: Patient is alert oriented ?3. No focal neurological deficits. SKIN: Normal turgor and temperature. Urinary Catheter Management^: Escobar: Cath Placed During This Visit: yes Reason for Continuing Indwelling Catheter: Other Urinary Catheter Date of Insertion: 02/17/21 Urinary Catheter Time of Insertion: 14:30 Data : 02/24/21 05:18 02/24/21 05:18 A&P Assessment and plan (1) CHF (congestive heart failure): RV failure with HFmrEF Last known LVEF=45%. -started back on bumex with albumin by nephrology. -start on dopamine @ 5 through central line, May have to try dobutamine with levophed if needed/ CVVH-HD -closely monitor UO. Status: Chronic Qualifiers: Heart failure type: systolic Heart failure chronicity: acute on chronic Qualified Code(s): I50.23 - Acute on chronic systolic (congestive) heart failure (2) Acute kidney injury superimposed on chronic kidney disease: SHAQUILLE on CKD stage 4 Status: Acute (3) Atrial fibrillation with rapid ventricular response: D/C cardizem and start on PRN metoprolol. Status: Acute (4) Elevated troponin: Status: Acute (5) Anemia: Status: Acute Additional A&P Information Right upper lung spiculated mass with cavitation: concern for malignancy Right upper lung PNA: On antibiotics per primary team (Sputum + MRSA) MRSA UTI Left renal mass Anemia: Hb dropping H/O UGIB Hyponatremia Hypomagnesmia : replaced NSVT on telemetry Moderate left and small right pleural effusion Small pericardial effusion on CT chest MIld Pulmonary HTN Thank you for allowing me to participate in patient's care. Please fell free to call with questions or concerns. Attestations Medical Necessity Statement*: needs hospital stay for dCHF and renal failure Time Spent in Patient Care: 16 - 35 minutes (>than 50% of time spent in counselling and/or direct pt care on unit) . Coding Level of Care Code Acute Investment Accountant for Gaby Curry Diagnoses CHF (congestive heart failure) I50.23 Heart failure type: systolic Heart failure chronicity: acute on chronic Acute kidney injury superimposed on chronic kidney disease N17.9; N18.9 Atrial fibrillation with rapid ventricular response I48.91 Elevated troponin R77.8 Anemia D64.9
--- NOTE | 2021-02-24 13:13 | ANES.PROC ---
Anesthesia Procedures Procedure/Date: 02/24/21 Central Venous Insert: Time Out Performed: Yes Consent: requested by attending/covering physician, from patient, risks and benefits reviewed and patient agrees to proceed Central Line: New Anesthesia monitors: pulse oximetry, EKG, BP cuff and oxygen Vein cannulated: right internal jugular Ultrasound used: to identify patency to vessel and to visualize needle entry to vein Post procedure: Obtain Chest X-Ray Additional Comments: chloroprep of skin, full body drape, Lidocaine 1% of skin, Wire visualized in R IJ by US
[2021-02-24] MEDS: DOPamine drip 400 MG/250 ML PREMIX 11.9 MG IV (13:39)
--- NOTE | 2021-02-24 14:20 | PM.PN ---
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, given her fatigue, weight loss, this is quite concerning, options I discussed was hospice versus pursuing biopsy, versus pursuing cytology, versus surgery, patient is adamant she does not want surgery, however she might be okay with chemotherapy, however wants to think on it -She also has a renal mass, possibly looks like renal cell carcinoma on imaging, but have not discussed with urology as of yet, -She has deconditioning, recurrent hospital admissions -She has severe diastolic heart failure, resulting in recurrent hospitalizations, complicated with cardiorenal syndrome, SHAQUILLE, low blood pressures -Is always been a difficult balance between diuresing her, and her acute kidney injury -Initially she was diuresed with dopamine midodrine, clinically improved, but her creatinine trended upwards to 4.0, got fluids, urine output continues to decline creatinine continues to increase, cardiology has been consulted, nephrology consulted -Certainly dialysis is a possibility, is a monitor creatinine or urine output -She also has bilateral pleural effusions, may consider medial thoracocentesis, help for fluid overload,senf for cytology -I discussed options available to the patient, including continue medical interventions, hospice, her and her family voiced understanding, all questions answered, will think on on it for now, continue medical interventions, Vitals/I&O/Wt Last Vital Signs Temp 97.5 F L 02/24/21 07:05 Pulse 109 H 02/24/21 07:51 Resp 16 02/24/21 12:38 BP 98/64 02/24/21 07:05 Pulse Ox 93 02/24/21 07:45 02/23/21 02/24/21 02/24/21 22:59 06:59 14:59 Intake Total 732 / 932 460 / 1392 200 / 200 Output Total 150 / 150 Balance 732 / 932 310 / 1242 200 / 200 Weight last 48 hrs Weight 67.449 kg Weight 67.767 kg Weight 65.317 kg Physical Exam Const: COMMON NORMALS: no acute distress GENERAL APPEARANCE: cooperative, ill appearing and frail appearing ORIENTATION/CONSCIOUSNESS: Yes oriented to person, Yes oriented to place and Yes oriented to time Resp: COMMON NORMALS: normal respiratory effort, No retractions and No use of accessory muscles OTHER: Decreased aeration bilateral lower lung méndez Cardio: COMMON NORMALS: regular rate, S1 normal heart sound present and S2 normal heart sound present RATE: regular rate RHYTHM: abnormal rhythm HEART SOUNDS: S1 normal heart sound present and S2 normal heart sound present GI: COMMON NORMALS: Normal to inspection, nondistended, normoactive bowel sounds present, Soft to palpation, non-tender and No hepatosplenomegaly present PALPATION: Yes Soft to palpation and Yes No hepatosplenomegaly present Extremity: OTHER: Bilateral lower extremity 1+ pitting edema, severe peripheral neuropathy, severe tenderness Neuro: SENSORIUM/ORIENTATION: Yes oriented to person, Yes oriented to place and Yes oriented to time Urinary Catheter Management^: Escobar: Cath Placed During This Visit: yes Reason for Continuing Indwelling Catheter: Other Urinary Catheter Date of Insertion: 02/17/21 Urinary Catheter Time of Insertion: 14:30 Data : 02/24/21 05:18 02/24/21 05:18 A&P Assessment and plan (1) Left renal mass: -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 fib with RVR Plan: -Clinically on 3 L -Admit to cardiac stepdown unit -On Primaxin, Zyvox, monitor respiratory status closely, DuoNeb, oxygen therapy, flutter valve, incentive spirometer, -Follow blood cultures, sputum cultures, urine bacterial antigens, MRSA in sputum culture, urine culture positive for staph aureus -Currently on Cardizem p.o. 90 every 6 hours on hold -Given low blood pressures continue dopamine -PICC line cannot be placed, midline cannot be placed, IVs are difficult to place, will have to place a central line, discussed risk benefits, voiced finding, all questions answered, agreed to proceed -Currently Bumex 2 mg daily with dopamine with albumin, urine output 150 cc, creatinine 4.9 -She might require CVVHD, hemodialysis, she will think on this, family will think on this -Does have minimal anasarca, 1+ pitting edema bilaterally -Nephrology on consult -For now anticoagulation is contraindicated given hemoptysis, GI bleed -Hemoglobin at 7.4, monitor -Full code -SCDs for DVT prophylaxis, anticoagulation contraindicated given GI bleed, hemoptysis Status: Acute (4) Paroxysmal A-fib: Cardiology on consult Status: Acute (5) Anemia: Continue to monitor, likely multifactorial from acute renal failure Status: Acute (6) Hematochezia due to medication: Status: Acute (7) Acute kidney injury superimposed on chronic kidney disease: Status: Acute (8) CHF (congestive heart failure): Status: Chronic Qualifiers: Heart failure type: systolic Heart failure chronicity: acute on chronic Qualified Code(s): I50.23 - Acute on chronic systolic (congestive) heart failure (9) UTI (urinary tract infection): -MRSA UTI, with Escobar catheter in place, on Zyvox Status: Acute (10) 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 fib, deconditioning, protein calorie malnutrition Coding Level of Care Code Acute [employer] for Chg Fwd Diagnoses Left renal mass N28.89 Right upper lobe pneumonia J18.9 Acute respiratory failure with hypoxia J96.01 Paroxysmal A-fib I48.0 Anemia D64.9 Hematochezia due to medication K92.1; T50.905A Acute kidney injury superimposed on chronic kidney disease N17.9; N18.9 CHF (congestive heart failure) I50.23 Heart failure type: systolic Heart failure chronicity: acute on chronic UTI (urinary tract infection) N39.0 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 J98.4 Bilateral pleural effusion J90
[2021-02-24] MEDS: ondansetron 2 mg/ML SDV 2 mL 4 MG IVP ×2 (15:26→21:40)
--- NOTE | 2021-02-24 15:28 | ECG_ITS ---
[facility] Test Date: 2021-02-24 Pat Name: Janelle Riley Department: Room: 101 Gender: Female General Duty Nurse: : [id number] Requested By: Long Quintero Order Number: [id number] Mera MD: Leigh Ann Morin M.D. Measurements Intervals [place] Rate: 116 P: MT: QRS: 211 QRSD: 127 T: 83 QT: 323 QTc: 450 Interpretive Statements ATRIAL FIBRILLATION WITH RAPID VENTRICULAR RESPONSE MARKED RIGHT AXIS DEVIATION [QRS AXIS > 100] POSSIBLE ANTERIOR MYOCARDIAL INFARCTION [30 ms Q WAVE IN V3/V4, OR R < 0.2 mV IN V4], OF INDETERMINATE AGE Compared to ECG 02/22/2021 08:49:37 No significant changes Electronically Signed On 02-24-2021 18:30:30 CDT by Leigh Ann Morin M.D. [id number]
--- NOTE | 2021-02-24 16:09 | P.CONIM_ITS ---
Providers/Reason For Consult Consulting Physician/Specialty*: Henrique Pascual MD/ Pulmonary Critical Care Reason for Consult*: left pleural effusion and right upper lobe cavitary lesion Requesting Physician: Long Quintero MD Attending Physician: Long Quintero MD Primary Care Provider: Mary Castellano MD History of Present Illness History of Present Illness Janelle Riley is a 85 year old female with PMH of systolic and diastolic heart failure, COPD, Pulmonary HTN, Paroxysmal A.fib, not on anticoagulation due to hemoptysis, GI bleed, aortic stenosis, chronic anemia, presented to [facility] on 02/17/2021 with worsening dyspnea, fatigue, elevated heart rate and increasing oxygen requirements. She is a resident of [facility] and was requiring 2 L of oxygen with heart rates ranging from 1 20-1 40 and so sent to [facility] for evalua tion. [facility] is [facility] patient was diagnosed with right upper lobe pneumonia, A. fib with RVR and CHF exacerbation and was admitted to cardiac stepdown unit. Patient has been CT chest 4025 which showed right upper lobe spiculated mass with evidence of early cavitation 3.7 x 2.5 x 3.4 cm concerning for primary lung cancer. Moderate left pleural effusion and left upper and left lower lobe consolidative alveolar airspace disease. Mild centrilobular emphysema and small volume pericardial effusion with advanced three-vessel coronary artery disease. Pulmonary consulted for evaluation of right upper lobe spiculated mass in the pleural effusion. Patient seen at bedside She is alert oriented and communicative Bedside ultrasound showed moderate to large left pleural effusion. Patient is on Bumex 2 mg daily and albumin 25 g daily for severe diastolic and systolic CHF and cardiorenal syndrome and stage IV CKD Although pleural effusion can very well be secondary to CHF and renal failure, given the new cavitary lesion on the right upper lobe suspicious for primary lung cancer-I decided to do thoracentesis and send for cytology. Procedure and the related complications were explained to the patient and her brother and decision was made to proceed with thoracentesis but aborted as patient went into A. fib RVR. All her A. fib medications were held and she was started on dopamine for low blood pressure but patient went into A. fib RVR with heart rate ranging from 1 40-1 80 and she complained of nausea. Patient was low-grade with amiodarone and started on amiodarone drip and sent to ICU. Review of Systems General: Reports: 10 or more systems reviewed and unremarkable except in HPI and below Meds/Allergies Home Medications and Allergies Home Medications Medication Instructions Recorded Confirmed Last Taken Type pantoprazole 40 mg tablet,delayed 40 mg PO BID@08,17 12/17/19 02/17/21 02/17/21 History release acetaminophen 325 mg tablet 325 mg PO QID PRN 01/14/20 02/17/21 01/30/21 07:30 History 650 MG atorvastatin 40 mg PO BEDTIME@199901/30/21 02/17/21 02/16/21 History bisacodyl [Dulcolax (bisacodyl)] 10 mg [place] DAILY PRN 01/30/21 02/17/21 Unknown H istory docusate sodium [DOK] 100 mg PO BID@0800,199901/30/21 02/17/21 02/17/21 History potassium chloride [Klor-Con M20] 40 meq PO DAILY@0800 01/30/21 02/17/21 02/17/21 History sevelamer carbonate 800 mg PO DAILY@1700 01/30/21 02/17/21 02/16/21 History sucralfate [Carafate] 1 g PO BID@0800,199901/30/21 02/17/21 02/17/21 History diltiazem HCl 120 mg PO BID 02/17/21 02/17/21 02/17/21 History furosemide [Lasix] 40 mg PO BID 02/17/21 02/17/21 02/17/21 History prednisone 5 mg PO DAILY 02/17/21 02/17/21 02/17/21 History Allergies Allergy/AdvReac Type Severity Reaction Status Date / Time allopurinol Allergy Severe rash, Verified 02/10/21 10:51 excoriation of skin amiodarone Allergy Intermediate rash Verified 02/10/21 10:51 digoxin Allergy Unknown Unknown Verified 02/10/21 10:51 lisinopril Allergy Unknown Unknown Verified 02/10/21 10:51 milk Allergy Unknown Unknown Verified 02/10/21 10:51 Penicillins Allergy Unknown Unknown Verified 02/10/21 10:51 Current Medications Current Medications Generic Name Dose Route Start Last Admin Trade Name Freq PRN Reason Stop Dose Admin Acetaminophen 650 mg 02/17/21 14:53 02/24/21 00:33 Acetaminophen 325 Mg Tablet PO 650 mg Q6H PRN Administration Mild/Mod Pain Or Temp >/= 101 Albuterol/Ipratropium 3 ml 02/19/21 17:32 02/24/21 07:45 Ipratropium-Albuterol 3 Ml Neb INHALATION 3 ml QID.RESPIRATORY PRN Administration SHORTNESS OF BREATH Aspirin 81 mg 02/17/21 15:30 02/24/21 08:32 Aspirin 81 Mg Ec Tablet PO 81 mg DAILY RITA Administration Atorvastatin Calcium 40 mg 02/17/21 20:00 02/23/21 21:46 Atorvastatin 40 Mg Tablet PO 40 mg BEDTIME@2000 RITA Administration Bumetanide 2 mg 02/24/21 09:00 02/24/21 08:32 Bumetanide 0.25 Mg/Ml Sdv 4 Ml IV 2 mg DAILY RITA Administration Calcium Carbonate 1,000 mg 02/24/21 09:00 02/24/21 08:33 Calcium Carbonate 500 Mg Chew Tablet PO 1,000 mg BID RITA Administration Imipenem/Cilastatin Sodium 250 100 mls @ 200 mls/hr 02/18/21 09:00 02/24/21 09:30 mg/ Sodium Chloride IV Infused Q12H RITA Infusion Protocol Linezolid 600 mg in 300 mls @ 300 mls/hr 02/19/21 12:00 02/24/21 05:50 Zyvox Premix IV Infused Q12H RITA Infusion Protocol Dopamine HCl/Dextrose 400 mg in 250 mls @ 11.915 mls/hr 02/19/21 13:00 02/24/21 13:39 Intropin Drip IV 5 mcg/kg/min CONT RITA 11.9 mls/hr Administration Protocol 5 MCG/KG/MIN Albumin Human 25 gm in 100 mls @ 60 mls/hr 02/24/21 09:00 02/24/21 10:30 Albumin IV Infused DAILY RITA Infusion Diltiazem HCl 125 mg/ Sodium 125 mls @ 0 mls/hr 02/24/21 15:30 02/24/21 16:07 Chloride IV 5 mg/hr .Q0M RITA 5 mls/hr Administration Protocol Per Protocol Midodrine 10 mg 02/17/21 21:00 02/24/21 08:32 Midodrine 5 Mg Tablet PO 10 mg TID RITA Administration Morphine Sulfate 1 mg 02/24/21 12:02 02/24/21 12:38 Morphine 4 Mg/Ml Sdv 1 Ml IVP 1 mg Q4H PRN Administration SEVERE PAIN Ondansetron HCl 4 mg 02/17/21 14:53 02/24/21 15:26 Ondansetron 2 Mg/Ml Sdv 2 Ml IVP 4 mg Q8H PRN Administration vomiting, or N/V if npo Sevelamer Carbonate 800 mg 02/17/21 17:00 02/23/21 18:48 Sevelamer 800 Mg Tablet PO 800 mg DAILY@1700 RITA Administration Sucralfate 1 gm 02/17/21 20:00 02/24/21 08:33 Sucralfate 1 Gm Tablet PO 1 gm BID@08,1999 RITA Administration PFSH Acute PFSH: Medical History (Updated 02/24/21 @ 16:39 by Henrique Pascual MD) LIZABETH inhibitor intolerance Anemia Aortic stenosis Mild Cardiomyopathy 35-40% CHF (congestive heart failure) Chronic kidney disease, stage 4 (severe) COPD (chronic obstructive pulmonary disease) Gout Hemoptysis Left renal mass Paroxysmal A-fib Pulmonary hypertension Surgical History History of cardiac catheterization History of cataract surgery Bilateral S/P bladder repair Bladder suspension S/P hysterectomy / BSO Family History Mother CAD (coronary artery disease) Myocardial infarction Father CAD (coronary artery disease) Social History Smoking and tobacco status: former smoker Quit status (tobacco): has quit using tobacco Year quit tobacco: 1999 Former quit date comment: [id number] history prior to quitting Alcohol intake: never Marital status: / Current occupational status: retired Vitals/I&O/Wt Last Vital Signs Temp 97.8 F 02/24/21 14:27 Pulse 90 02/24/21 14:27 Resp 15 02/24/21 14:27 BP 113/72 02/24/21 14:27 Pulse Ox 94 02/24/21 14:27 02/24/21 02/24/21 02/24/21 06:59 14:59 22:59 Intake Total 460 / 1392 200 / 200 Output Total 150 / 150 Balance 310 / 1242 200 / 200 Weight last 48 hrs Weight 148 lb 11.2 oz Weight 149 lb 6.4 oz Weight 144 lb Physical Exam Narrative: EXAM NARRATIVE: General: alert, NAD HEENT: conj clear, EOMI, PERRL, mmm, Neck: supple, no meningismus Heme: no cervical LAP Pulmonary: Reduced breath sounds on left lower lung zone Cardiovascular: rrr, nl s1s2, no mrg Abdomen: soft, nt, nd, no r/g, bs+ Extremities: pulses +, 2+ pitting pedal edema, no c/c : no CVA tenderness Skin: intact, no rash MSK: no back or neck pain Neurologic: grossly intact Urinary Catheter Management^: Escobar: Cath Placed During This Visit: yes Reason for Continuing Indwelling Catheter: Other Urinary Catheter Date of Insertion: 02/17/21 Urinary Catheter Time of Insertion: 14:30 Data Labs: Other Labs: Laboratory Results WBC 7.4 10^3/uL (4.0- 10.0) 02/24/21 05:18 RBC 2.66 10^6/uL (4.1 -5.3) L 02/24/21 05:18 Hgb 7.4 g/dL (11.5-15 .3) L 02/24/21 05:18 Hct 24.3 % (37.0-47.0 ) L 02/24/21 05:18 MCV 91.4 fL (81-99) 02/24/21 05:18 MCH 27.8 pg (28.0-34. 0) L 02/24/21 05:18 MCHC 30.5 g/dL (30.0-3 6.0) 02/24/21 05:18 RDW 19.1 % (12.1-15.1 ) H 02/24/21 05:18 Plt Count 210 10^3/cmm (130 -400) 02/24/21 05:18 MPV 10.0 fL (7.4-10.4 ) 02/24/21 05:18 Neut % (Auto) 72.2 % 02/24/21 05:18 Lymph % (Auto) 13.3 % 02/24/21 05:18 [place] % (Auto) 11.5 % 02/24/21 05:18 Eos % (Auto) 1.5 % 02/24/21 05:18 Baso % (Auto) 0.4 % 02/24/21 05:18 Neut # (Auto) 5.36 10^3/uL (1.8 -7.7) 02/24/21 05:18 Lymph # (Auto) 1.0 10^3/uL (0.8- 4.8) 02/24/21 05:18 [place] # (Auto) 0.9 10^3/uL (0.2- 0.9) 02/24/21 05:18 Eos # (Auto) 0.1 10^3/uL (0.0- 0.8) 02/24/21 05:18 Baso # (Auto) 0.0 10^3/uL (0.0- 0.1) 02/24/21 05:18 Nucleated RBC % (a uto) 0 % 02/24/21 05:18 Nucleated RBCs # 0.0 /100WBC 02/24/21 05:18 ESR 18 mm/hr (0-15) H 02/20/21 04:35 PT 18.00 SECONDS (12 .1-14.9) H 02/23/21 04:40 INR 1.45 (0.8-1.2) H 02/23/21 04:40 Specimen Type Arterial 02/23/21 14:00 Sample Site Radial, right 02/23/21 14:00 ABG pH 7.39 (7.35-7.45) 02/23/21 14:00 ABG pCO2 34.8 mmHg (35-45) L 02/23/21 14:00 ABG pO2 67.1 mmHg (80.0-1 00.0) L 02/23/21 14:00 ABG HCO3 20.8 mmol/L (22-2 6) L 02/23/21 14:00 ABG O2 Saturation 92.8 02/23/21 14:00 ABG Base Excess -3.7 mmol/L (-2.0 -2.0) L 02/23/21 14:00 Deven Test Pos 02/23/21 14:00 A-a O2 Gradient 5.1 mmHg (5-10) 02/23/21 14:00 Hematocrit 29.4 % (37-47) L 02/23/21 14:00 Hgb O2 Saturation 90.9 % (95-100) L 02/23/21 14:00 Carboxyhemoglobin 1.1 %THgb (0.4-20 .1) 02/23/21 14:00 Methemoglobin 0.9 % (0.4-1.5) 02/23/21 14:00 Total Hemoglobin 9.6 g/dL (12-16) L 02/23/21 14:00 Sodium 129.0 mmol/L (131 -143) L 02/23/21 14:00 Potassium 4.6 mmol/L (3.5-5 .0) 02/23/21 14:00 Glucose 112.0 mg/dL (70-1 15) 02/23/21 14:00 Ionized Calcium 1.0 mmol/L (1.1-1 .4) L 02/23/21 14:00 O2 Delivery Device Nc 02/23/21 14:00 O2 Liters/Min 33.0 % 02/23/21 14:00 [employer] ID [id number] 02/23/21 14:00 Sodium 130 mmol/L (136-1 45) L 02/24/21 05:18 Potassium 4.3 mmol/L (3.5-5 .1) 02/24/21 05:18 Chloride 96 mmol/L (98-107 ) L 02/24/21 05:18 Carbon Dioxide 21 mmol/L (22-29) L 02/24/21 05:18 Anion Gap 17.3 (5-19) 02/24/21 05:18 BUN 69 mg/dL (8-23) H 02/24/21 05:18 Creatinine 4.9 mg/dL (0.5-0. 9) H 02/24/21 05:18 GFR Calculation Not Reportable 02/24/21 05:18 Glucose 133 mg/dL (65-115 ) H 02/24/21 05:18 Calculated Osmolal ity 292 mOsm/kg (285- 295) 02/24/21 05:18 Lactate 2.0 mmol/L (0.5-2 .2) 02/23/21 04:40 Calcium 6.9 mg/dL (8.5-10 .5) L 02/24/21 05:18 Phosphorus 5.6 mg/dL (2.5-4. 5) H 02/24/21 05:18 Magnesium 1.8 mg/dL (1.7-2. 3) 02/24/21 05:18 Iron 51 ug/dL (37-145) 02/23/21 15:05 Iron Cancelled 02/23/21 15:05 TIBC 85 mcg/dl 02/23/21 15:05 % Saturation 60.0 % (20-50) H 02/23/21 15:05 Unsat Iron Binding 34 ug/dL (112-347 ) L 02/23/21 15:05 Ferritin 286 ng/mL (15-150 ) H 02/23/21 15:05 Total Bilirubin 0.6 mg/dL (0.15-1 .2) 02/24/21 05:18 AST 13 U/L (0-32) 02/24/21 05:18 ALT 9 U/L (0-33) 02/24/21 05:18 Alkaline Phosphata se 98 IU/L (35-105) 02/24/21 05:18 Creatine Kinase 13 U/L (26-192) L 02/20/21 04:35 Troponin T Baselin e 70 ng/L (0-10) H 02/17/21 10:53 Troponin T 120 Min pablo 80.91 ng/L (0-10) H 02/17/21 13:03 Delta Troponin T 10.91 ABS# (0-10) H* 02/17/21 13:03 Troponin T Hi Sens 6Hr 74.81 ng/L (0-10) H 02/17/21 16:41 Troponin T Hi Sens 6Hr Delta 4.81 ng/L (0-12) 02/17/21 16:41 C-Reactive Protein 27.8 mg/L (0.0-4. 9) H 02/23/21 04:40 NT-Pro-B Natriuret Pep 7653 pg/mL (0-450 ) H 02/23/21 04:40 Total Protein 4.8 g/dL (6.6-8.7 ) L 02/24/21 05:18 Albumin 2.5 g/dL (3.5-5.2 ) L 02/24/21 05:18 Globulin 2.3 g/dL (1.3-4.6 ) 02/24/21 05:18 25-OH Vitamin D To hari 33 ng/mL (30-100) 02/24/21 05:18 Procalcitonin 0.43 ng/mL (0-0.5 ) 02/23/21 04:40 TSH 0.58 uIU/mL (0.27 -4.20) 02/23/21 15:05 PTH Intact 144.7 pg/mL (15-6 5) H 02/24/21 05:18 Calcium (PTH Intac t) 7.0 mg/dL (8.5-10 .5) L 02/24/21 05:18 Random Cortisol 16.73 ug/dL (2.47 -19.5) 02/23/21 15:05 Urine Color Yellow (Yellow) 02/24/21 05:00 Urine Appearance Hazy (CLEAR) A 02/24/21 05:00 Urine pH 5 (5-7) 02/24/21 05:00 Ur Specific Gravit y 1.020 (1.005-1.0 30) 02/24/21 05:00 Urine Protein Trace (Negative) 02/24/21 05:00 Urine Glucose (UA) Norm (Normal) 02/24/21 05:00 Urine Ketones 1+ (Negative) H 02/24/21 05:00 Urine Blood 2+ (Negative) H 02/24/21 05:00 Urine Nitrate Negative (Negati ve) 02/24/21 05:00 Urine Bilirubin 1+ (Negative) H 02/24/21 05:00 Urine Urobilinogen 1 mg/dL (Negative ) H 02/24/21 05:00 Ur Leukocyte Niki ase 2+ (Negative) H 02/24/21 05:00 Urine RBC 15-25 /hpf (0-2) H 02/24/21 05:00 Urine WBC 5-10 /hpf (0-5) H 02/24/21 05:00 Ur Squamous Epith Cells 5-10 /hpf (0-5) H 02/24/21 05:00 Amorphous Sediment 2+ /hpf 02/24/21 05:00 Urine Bacteria 1+ /hpf (NONE) H 02/24/21 05:00 Hyaline Casts 5-10 /lpf H 02/24/21 05:00 Hepatitis A IgM Ab Non-reactive (No nreactive) 02/20/21 04:35 Hep Bs Antigen Non-reactive (No nreactive) 02/20/21 04:35 Hep B Core IgM Ab Non-reactive (No nreactive) 02/20/21 04:35 Hepatitis C Antibo dy Non-reactive (No nreactive) 02/23/21 15:05 HIV 1&2 Ab & HIV 1 Ag Non-reactive (No n-Reactiv) 02/20/21 04:35 HIV 1&2 Antibody Non-reactive (No n-Reactiv) 02/20/21 04:35 Impressions Renal Ultrasound 02/19/21 11:07 IMPRESSION: 1. Echogenic kidneys consistent with a medical renal disease. 2. 4.3 cm benign left renal cyst. 3. No hydronephrosis. 4. Bilateral pleural effusions larger on the left side. Chest CT 02/23/21 13:34 IMPRESSION: 1. Interval development of a anterior segment right upper lobe spiculated mass with evidence of early cavitation dimensions approximately 37 mm x 25 mm x 34 mm. Concern for primary lung carcinoma. 2. Moderate volume left pleural effusion and small volume right. 3. Left upper and left lower lobe consolidated alveolar airspace disease. 4. Mild centrilobular emphysema with associated COPD/chronic bronchitis. 5. Small volume pericardial effusion. 6. Advanced 3 vessel coronary artery disease. 7. Middle mediastinal prominent lymph nodes. 8. Other nonurgent, nonemergent, chronic, and age related findings as detailed in text above. Radiation Dose CTDIVOL = (mGy): DLP = 498.62 (mGy-cm) ADDENDUM: 02/23/21 [id number] THIS REPORT CONTAINS FINDINGS THAT MAY BE CRITICAL TO PATIENT CARE. The findings were verbally communicated via telephone conference with Nino Goodman at 6:30 PM CDT on 02/23/2021. The findings were acknowledged and understood. Radiation Dose CTDIVOL = (mGy): DLP = 498.62 (mGy-cm) Chest X-Ray 02/24/21 13:04 IMPRESSION: 1. Right IJ catheter in satisfactory position ending in the lower one third of the SVC. 2. Right upper lobe pulmonary opacity unchanged. 3. Increasing left basal pleural effusion with compressive atelectasis. Cardiac enlargement. A&P Assessment and plan (1) Acute respiratory failure with hypoxia: Status: Acute (2) CHF (congestive heart failure): Status: Chronic Qualifiers: Heart failure type: systolic Heart failure chronicity: acute on chronic Qualified Code(s): I50.23 - Acute on chronic systolic (congestive) heart failure (3) Atrial fibrillation with rapid ventricular response: Status: Acute (4) Bilateral pleural effusion: Status: Acute (5) Pneumonia: Status: Acute Qualifiers: Pneumonia type: due to unspecified organism Laterality: left Lung location: upper lobe of lung Qualified Code(s): J18.9 - Pneumonia, unspecified organism (6) 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: Status: Acute (7) Left renal mass: Status: Acute (8) Anemia: Status: Acute Qualifiers: Anemia type: due to chronic kidney disease Chronic kidney disease stage: stage 4 (severe) Qualified Code(s): N18.4 - Chronic kidney disease, stage 4 (severe); D63.1 - Anemia in chronic kidney disease (9) Acute kidney injury superimposed on chronic kidney disease: Status: Acute (10) UTI (urinary tract infection): Status: Acute Qualifiers: Urinary tract infection type: site unspecified Hematuria presence: without hematuria Qualified Code(s): N39.0 - Urinary tract infection, site not specified (11) MRSA pneumonia: Status: Acute Qualifiers: Laterality: left Lung location: upper lobe of lung Qualified Code(s): J15.212 - Pneumonia due to Methicillin resistant Staphylococcus aureus #Acute respiratory failure with hypoxia #Bilateral pleural effusion left greater than right #Right upper lung spiculated mass with cavitation concerning for malignancy #Centrilobular emphysema in patient history of [id number] smoking quit 1999 #Atrial fibrillation with RVR #Acute on chronic congestive heart failure-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 echogenic mass on echo 01/26/2021-suspicious subvalvular calcified apparatus vs thrombus #Exophytic mass arising from the left kidney midpole concerning for renal cell carcinoma #SHAQUILLE on CKD stage IV likely due to cardiorenal syndrome #MRSA pneumonia and MRSA UTI -Currently on 3 L nasal cannula and saturating 94% -DuoNeb nebulization every 6 hours as needed for underlying COPD -Held midodrine and started on dopamine drip-patient went into A. fib RVR and so held dopamine and started on amiodarone drip for A. fib RVR and metoprolol as needed -Hemodynamically stable -Patient not on anticoagulation due to history of GI bleed and today H&H 7.424 -Echo 01/06/2021 showed grade 4 diastolic dysfunction, RVSP 52, LVEF 62% and?? Echogenic mass observed in the left ventricle could be subvalvular calcified apparatus in this suboptimal images and further exploration with contrast echo or MIGUEL A performed if clinically indicated for suspicion of thromboembolic phenomenon -on aspirin/Lipitor for CAD -I/O/N 1.3 L / 150 mL/1.2liters; currently on Bumex 2 mg IV daily and albumin as per renal, electrolytes within normal limits and bicarb 21-no hard indication for CRRT/dialysis at this point (-nephrology on board -Cultures so far negative for MRSA in sputum and MRSA -Patient is on contact isolation and linezolid and imipenem -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 -Known since previous admissions, as per urology - they felt that this is likely looks like a benign cyst, however will need outpatient follow-up Given the overall advanced age and advanced stage of multiple comorbidities with grade 4 diastolic dysfunction and A. fib with RVR causing cardiorenal syndrome leading to worsening kidney functions with baseline stage IV CKD, underlying emphysema, exophytic mass of left kidney suspicious for renal cell cancer-left pleural effusion can be more likely secondary to pneumonia versus fluid overload due to CHF/CKD. But given the findings on CT chest with right upper lobe cavitary lesion and history of [id number] smoking-I would recommend to get thoracentesis and sent for cytology once patient is hemodynamically stable. If cytology is negative and patient is clinically stabilized cardiorenal jacobo -I will discuss with patient and family whether to proceed with invasive bronchoscopy and biopsies to rule out/lung cancer depending on their overall goals of care. Discussed with patient and her brother about overall poor prognosis and they were willing to do thoracentesis when it is appropriate and will think about it further invasive procedures later on. Patient expressed wishes not to go for any surgery if required but did not refuse the possibility of undergoing chemo or radiation. All these goals of care needs to be readdressed with patient and family in future meetings as personally I feel patient has very poor functional status and overall poor clinical outcome. Consult Attestations Medical Necessity Statement: Given the overall advanced age and advanced stage of multiple comorbidities with grade 4 diastolic dysfunction and A. fib with RVR causing cardiorenal syndrome leading to worsening kidney functions with baseline stage IV CKD, underlying emphysema -she needs close monitoring in ICU and meaningful goals of care discussion. Time Spent in Patient Care: Greater than 35 minutes (>than 50% of time spent in counselling and/or direct pt care on unit) . Critical Care Time: Critical Care Time (min): 45 Coding Level of Care Code New Pt Acute Toe Lining Closer for Chg Fwd Patient Type New History Comprehensive Exam Comprehensive Medical Decision Making High Complexity Diagnoses Acute respiratory failure with hypoxia J96.01 CHF (congestive heart failure) I50.23 Heart failure type: systolic Heart failure chronicity: acute on chronic Atrial fibrillation with rapid ventricular response I48.91 Bilateral pleural effusion J90 Pneumonia J18.9 Pneumonia type: due to unspecified organism Laterality: left Lung location: upper lobe of lung 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 J98.4 Left renal mass N28.89 Anemia N18.4; D63.1 Anemia type: due to chronic kidney disease Chronic kidney disease stage: stage 4 (severe) Acute kidney injury superimposed on chronic kidney disease N17.9; N18.9 UTI (urinary tract infection) N39.0 Urinary tract infection type: site unspecified Hematuria presence: without hematuria MRSA pneumonia J15.212 Laterality: left Lung location: upper lobe of lung Time Spent (min) 45
[2021-02-24] MEDS: linezolid premix 600 MG/300 ML PREMIX 150 MG IV (16:15)
[2021-02-24] MEDS: sevelamer 800 mg Tablet PO (17:24)
--- NOTE | 2021-02-24 18:40 | PC.NURSE ---
To floor Pt to floor at 1830.
[2021-02-24] MEDS: atorvastatin 40 mg Tablet PO (20:58)
--- NOTE | 2021-02-24 23:09 | PC.NURSE ---
Attempted to put SCDs on patient. Patient refused and states my legs hurt . Explained to patient that she needs them to prevent blood clots because we can not give her medication to prevent blood clots due to her possible GI bleed.
[2021-02-25] VITALS (35 sets, daily range): BP systolic 81–150; BP diastolic 59–98; PULSE 75–103; RESP 8–23; TEMP 36.1–36.3; O2SAT 74–98
[2021-02-25] MEDS: linezolid premix 600 MG/300 ML PREMIX 150 MG IV (03:02)
[2021-02-25 05:23] LABS: Basophils % 0.4 %; Eosinophils # 0.2 10^3/uL (0.0-0.8); Eosinophils % 1.8 %; Hematocrit 25.9 % (37.0-47.0); Hemoglobin 7.8 g/dL (11.5-15.3); Lymphocytes # 1.1 10^3/uL (0.8-4.8); Lymphocytes % 13.1 %; Mean Corpuscular HGB Conc 30.1 g/dL (30.0-36.0); Mean Corpuscular Hemoglobin 27.7 pg (28.0-34.0); Mean Corpuscular Volume 91.8 fL (81-99); Mean Platelet Volume 10.3 fL (7.4-10.4); Monocytes # 0.8 10^3/uL (0.2-0.9); Monocytes % 9.3 %; Neutrophils # 6.21 10^3/uL (1.8-7.7); Neutrophils % 74.7 %; Nucleated Red Blood Cells % 0 %; Platelet Count 177 10^3/cmm (130-400); Red Blood Count 2.82 10^6/uL (4.1-5.3); White Blood Count 8.3 10^3/uL (4.0-10.0)
[2021-02-25 05:44] LABS: INR 1.55 (0.8-1.2)
[2021-02-25 06:01] LABS: Alanine Aminotransferase 6 U/L (0-33); Albumin Level 2.9 g/dL (3.5-5.2); Alkaline Phosphatase 95 IU/L (35-105); Aspartate Amino Transferase 18 U/L (0-32); Blood Urea Nitrogen 71 mg/dL (8-23); Calcium 7.4 mg/dL (8.5-10.5); Carbon Dioxide 20 mmol/L (22-29); Chloride 93 mmol/L (98-107); Glucose 106 mg/dL (65-115); Magnesium 1.9 mg/dL (1.7-2.3); NT Pro B Type Natriuretic Pept 15089 pg/mL (0-450); Osmolality Calculated 285 mOsm/kg (285-295); Phosphorus 5.8 mg/dL (2.5-4.5); Sodium 127 mmol/L (136-145); Total Bilirubin 0.7 mg/dL (0.15-1.2); Total Protein 4.9 g/dL (6.6-8.7)
[2021-02-25 06:09] LABS: Anion Gap 18.4 (5-19); Potassium 4.4 mmol/L (3.5-5.1)
--- NOTE | 2021-02-25 07:00 | XR_ITS ---
WS: [id number] Exam: XR chest 1V portable [id number] Date/Time of Exam: 02/25/2021 5:26 AM Reason For Exam: sob Comparison 02/24/2021. Increasing infiltrate throughout the ventilated left lung and markedly increased left-sided pleural e ffusion. Increasing infiltrates also noted throughout the right lung. A dense area of consolidation i s again noted in the right upper lobe that may represent pneumonia or mass. The heart is enlarged. Ri ght-sided IJ catheter ends in the lower one third of the SVC. The mediastinum is not widened. XR/XR chest 1V portable [id number] IMPRESSION: 1. Increasing bilateral pulmonary infiltrates and increasing left pleural effus ion since prior study. This may represent increasing pneumonia however fluid ov erload could have similar appearance. 2. Focal density in the right upper lobe as described previously. This may repr esent focal pneumonia or mass. 3. Cardiac enlargement unchanged
[2021-02-25] MEDS: sucralfate 1 gm Tablet PO ×2 (09:35→19:41)
[2021-02-25] MEDS: aspirin 81 mg EC Tablet PO (09:36)
[2021-02-25] MEDS: calcium carbonate 500 mg Chew Tablet 1000 MG PO ×2 (09:36→17:36)
[2021-02-25] MEDS: bumetanide 0.25 mg/mL SDV 4 mL 2 MG IV (09:37)
[2021-02-25] MEDS: ondansetron 2 mg/ML SDV 2 mL 4 MG IVP (09:38)
--- NOTE | 2021-02-25 10:57 | PM.PN ---
Subjective Subjective: Interval history: Yesterday evening, patient developed A. fib with RVR, requiring transfer to ICU, currently her heart rates are better controlled on Cardizem drip, still in A. fib, she is up to 5 L nasal cannula, she tells me that at rest she is doing fine, but does get short of breath when they move her in bed, she is a bit agitated with all the tests and blood draws that she gets, she developed severe pain hip pain, leg pain whenever she is moved in bed, she tells me that the care home she was able to ambulate, however has had a progressive decline, here she is remain in bed, she tells me she does not have the energy to get up and move, and she has a lot of pain with minimal exertion, she does have pain medications to help, no chest pain, no shortness of breath, no lightheadedness, no dizziness, no nausea, no vomiting, continues to have a poor appetite I did have a discussion again with patient about the possibility of dialysis, her creatinine is up to 5.0, her urine output has been lackluster at 325 cc, and her chest x-ray shows worsening pulmonary edema, she is up to 5 L, she is crackly on exam, she will have a bedside thoracocentesis by Dr. wu, which hopefully will help, but she is likely going to require dialysis at some point, I described how dialysis will help with her fluid overload, with electrolyte abnormalities, and in her given her chronic kidney disease stage IV it would likely be long-term, I described the risk and benefits of the surgical procedure, and risk and benefits of dialysis, she voiced understanding, all questions answered, for now she wants to talk to her brothers, I did raise the issue with the family yesterday, both brothers, they seemed receptive towards proceeding with dialysis, but will discuss with them again today, plan for today is to give her more diuretics to see if her urine output improves and creatinine improves, I will also discuss with them when they come to the ICU Vitals/I&O/Wt Last Vital Signs Temp 97.4 F L 02/25/21 10:00 Pulse 94 02/25/21 10:00 Resp 15 02/25/21 10:00 BP 117/75 02/25/21 10:00 Pulse Ox 95 02/25/21 10:00 02/24/21 02/25/21 02/25/21 22:59 06:59 14:59 Intake Total 519.04 / 719.04 330 / 1049.04 500 / 500 Output Total 325 / 325 Balance 519.04 / 719.04 5 / 724.04 500 / 500 Weight last 48 hrs Weight 70.488 kg Weight 67.449 kg Weight 67.767 kg Physical Exam Const: COMMON NORMALS: no acute distress GENERAL APPEARANCE: frail appearing ORIENTATION/CONSCIOUSNESS: Yes awake, Yes oriented to person, Yes oriented to place and Yes oriented to time Chest: COMMONS NORMALS: normal inspection of the chest Resp: COMMON NORMALS: normal respiratory effort, No retractions, No use of accessory muscles and clear to auscultation bilaterally AUSCULTATION: clear to auscultation bilaterally and crackles Cardio: COMMON NORMALS: regular rate, S1 normal heart sound present and S2 normal heart sound present RATE: regular rate RHYTHM: abnormal rhythm HEART SOUNDS: S1 normal heart sound present and S2 normal heart sound present GI: COMMON NORMALS: Normal to inspection, nondistended, normoactive bowel sounds present, Soft to palpation and non-tender PALPATION: Yes Soft to palpation Extremity: OTHER: Bilateral lower extremity 1+ pitting edema, generalized anasarca Neuro: SENSORIUM/ORIENTATION: Yes oriented to person, Yes oriented to place and Yes oriented to time Urinary Catheter Management^: Escobar: Cath Placed During This Visit: yes Reason for Continuing Indwelling Catheter: Accurate Measurement of Urinary Output in Critically Ill Patients Urinary Catheter Date of Insertion: 02/17/21 Urinary Catheter Time of Insertion: 14:30 Data : 02/25/21 04:23 02/25/21 04:23 Micro: Microbiology 02/24/21 03:44 Urine Culture - Preliminary Urine Catheterized A&P Assessment and plan (1) Left renal mass: -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 fib with RVR, cavitary lung mass, bilateral pleural effusions -Echocardiogram from January 06, 2021 shows ejection fraction of 45%, global hypokinesis, grade 4 out of 4 diastolic dysfunction, severely elevated filling pressures, moderate pulmonary hypertension, right ventricular systolic pressure 52.7 mmHg - anterior segment right upper lobe spiculated mass with evidence of early cavitation dimensions approximately 37 mm x 25 mm x 34 mm. Concern for primary lung carcinoma. Moderate left pleural and small right pleural effusion Plan: -Continue to monitor in ICU -Clinically on 5 L -We will have a thoracocentesis today by Dr. Gross -On Primaxin, Zyvox, monitor respiratory status closely, DuoNeb, oxygen therapy, flutter valve, incentive spirometer, -Follow blood cultures, sputum cultures, urine bacterial antigens, MRSA in sputum culture, urine culture positive for staph aureus -Currently on Cardizem drip, cardiology on consult -Dopamine drip to maintain MAP greater than 75, start Bumex therapy -Currently Bumex therapy will be were titrated, monitor creatinine, monitor urine output, monitor electrolytes, continue dopamine with albumin -She might require CVVHD, hemodialysis, will await decision by family and patient -Does have minimal anasarca, 1+ pitting edema bilaterally -Nephrology on consult -For now anticoagulation is contraindicated given hemoptysis, GI bleed, Hemoccult positive stools -Hemoglobin at 7.8, monitor -Full code -PT OT, speech therapy -Has protein calorie malnutrition, hypoalbuminemia, likely contributing to anasarca, will have this speech therapy and nutrition's to see patient -Severe deconditioning, muscle wasting, PT OT to get up into a chair -SCDs for DVT prophylaxis not placed due to severe lower extremity pain, anticoagulation contraindicated given GI bleed, hemoptysis, patient understands the risks of not having her on anticoagulation and SCDs, risk of DVTs and PEs, voiced understanding, all questions answered, declined SCDs, anticoagulation contraindicated due to anemia, concerns for lower GI bleed, Hemoccult positive stools, bilateral lower extremity ultrasounds negative for DVT, continue to monitor Status: Acute (4) Paroxysmal A-fib: Cardiology on consult Status: Acute (5) Anemia: Continue to monitor, likely multifactorial from acute renal failure, Hemoccult positive stool slow GI bleed Status: Acute Qualifiers: Anemia type: due to chronic kidney disease Chronic kidney disease stage: stage 4 (severe) Qualified Code(s): N18.4 - Chronic kidney disease, stage 4 (severe); D63.1 - Anemia in chronic kidney disease (6) Hematochezia due to medication: Status: Acute (7) Acute kidney injury superimposed on chronic kidney disease: Status: Acute (8) CHF (congestive heart failure): Status: Chronic Qualifiers: Heart failure type: systolic Heart failure chronicity: acute on chronic Qualified Code(s): I50.23 - Acute on chronic systolic (congestive) heart failure (9) UTI (urinary tract infection): -MRSA UTI, with Escobar catheter in place, on Zyvox Status: Acute Qualifiers: Urinary tract infection type: site unspecified Hematuria presence: without hematuria Qualified Code(s): N39.0 - Urinary tract infection, site not specified (10) 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 -Pulmonary on consult -Discussed options including biopsy, chemo, surgery, hospice -Patient wants to discuss with family -Pulmonary on consult Status: Acute (11) Bilateral pleural effusion: -Will undergo thoracocentesis, also for cytology Status: Acute (12) Anasarca: Status: Acute (13) Protein calorie malnutrition: Status: Acute (14) Physical deconditioning: Status: Acute Additional A&P Information Plan for today increase diuretic therapy, monitor blood pressures, monitor heart rates, await family and patient's decision for dialysis, possibly require dialysis in the next 24-48 hrs., Attestations Medical Necessity Statement*: Patient requires hospitalization, for acute respiratory failure, squamous cell carcinoma lung, pneumonia, pulmonary edema, systolic and diastolic CHF, SHAQUILLE on CKD, protein calorie malnutrition, deconditioning, anasarca Time Spent in Patient Care: Greater than 35 minutes (>than 50% of time spent in counselling and/or direct pt care on unit). Critical Care Time: Critical Care Time (min): 55 Coding Level of Care Code Acute Commission Agent Livestock for g Fwd Diagnoses Left renal mass N28.89 Right upper lobe pneumonia J18.9 Acute respiratory failure with hypoxia J96.01 Paroxysmal A-fib I48.0 Anemia N18.4; D63.1 Anemia type: due to chronic kidney disease Chronic kidney disease stage: stage 4 (severe) Hematochezia due to medication K92.1; T50.905A Acute kidney injury superimposed on chronic kidney disease N17.9; N18.9 CHF (congestive heart failure) I50.23 Heart failure type: systolic Heart failure chronicity: acute on chronic UTI (urinary tract infection) N39.0 Urinary tract infection type: site unspecified Hematuria presence: without hematuria 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 J98.4 Bilateral pleural effusion J90 Anasarca R60.1 Protein calorie malnutrition E46 Physical deconditioning R53.81
--- NOTE | 2021-02-25 11:02 | P.PN_ITS ---
Subjective Subjective: Interval history: Feels ok, some pretty significant LE edema and mild SOB at rest. Bps have been a little on the softer side. She is just preparing for a thoracentesis. No uremic Sx otherwise. Vitals/I&O/Wt Last Vital Signs Temp 97.4 F L 02/25/21 10:00 Pulse 94 02/25/21 10:00 Resp 15 02/25/21 10:00 BP 117/75 02/25/21 10:00 Pulse Ox 95 02/25/21 10:00 02/24/21 02/25/21 02/25/21 22:59 06:59 14:59 Intake Total 519.04 / 719.04 330 / 1049.04 500 / 500 Output Total 325 / 325 Balance 519.04 / 719.04 5 / 724.04 500 / 500 Weight last 48 hrs Weight 70.488 kg Weight 67.449 kg Weight 67.767 kg Physical Exam Narrative: EXAM NARRATIVE: Constitutional: Awake, comfortable HEENT: Wet mucosa, no jvp, non icteric Lungs: Bilaterally clear without discernible wheeze, rales in all lung zones CVS: S1 S2, no murmurs Abdo: Soft, BS ok Ext 4: 2-3+ edema, peripheral perfusion with no cyanosis Neurological: Grossly non-focal Urinary Catheter Management^: Escobar: Cath Placed During This Visit: yes Reason for Continuing Indwelling Catheter: Accurate Measurement of Urinary Ou tput in Critically Ill Patients Urinary Catheter Date of Insertion: 02/17/21 Urinary Catheter Time of Insertion: 14:30 Data : 02/25/21 04:23 02/25/21 04:23 Micro: Microbiology 02/24/21 03:44 Urine Culture - Preliminary Urine Catheterized A&P Additional A&P Information 1. Renal Failure CKD with SHAQUILLE. likely hemodynamically mediated, CRS, pre-renal Renal function poor but no hard indication for dialysis Obviously fluid overloaded, will increase Bumex to TID dosing; if she fails this therapy will strongly consider dialysis in the next 24-48hrs am labs Strict Is and Os Avoid the usuals 2. Lung mass pending thoracentesis indeterminate mass in kidney noted Mgmt per pulm 3. Pneumonia Combo Abx on board D/w Dr Leon Bell MD Nephrology [phone] Patient seen and examined via telemedicine, with the assistance of the bedside RN > 25 min spent in evaluation and mgmt of patient Attestations Medical Necessity Statement*: Eval for SHAQUILLE Coding Level of Care Code Acute Library Services Coordinator for Gaby Curry
[2021-02-25] MEDS: bumetanide 0.25 mg/mL SDV 10 mL 2 MG IV ×3 (12:05→20:52)
[2021-02-25] MEDS: morphine 4 mg/mL SDV 1 mL 1 MG IVP (12:06)
[2021-02-25 12:24] LABS: Body Fluid Polynuclear #Cells 0.155; Body Fluid WBC 300 /uL; Monocytes # Body Fluid 0.145
[2021-02-25 12:33] LABS: Apprearance, Body Fluid CLOUDY; Color, Body Fluid YELLOW; PATH Referral YES
[2021-02-25 13:01] LABS: Fluid Alkaline Phos. 14 IU/L
[2021-02-25 13:02] LABS: Albumin Body Fluid 0.6 g/dL; Amylase Body Fluid 18 U/L; LDH Body Fluid 64 U/L; Triglycerides Body Fluid 21 mg/dL (0-150); Uric Acid Body Fluid 11 mg/dL
--- NOTE | 2021-02-25 13:19 | PC.NUTR ---
Nutrition consult for protein calorie malnutrition: Pt already assessed multiple times this admission by RD, see assessments in EMR. Limited options to increase protein/kcal intake orally at this time due to pt stating nothing sounds good and most foods make her sick to her stomach. Added multiple foods to add/remove to trays per pt preference. See full RD assessment for more details.
[2021-02-25 13:21] LABS: Cholesterol Body Fluid 6 mg/dL (0-200)
--- NOTE | 2021-02-25 13:33 | P.PN_ITS ---
Subjective Subjective: Interval history: Patient seen at bedside in ICU -Labs and imaging reviewed - Appears more hemodynamically stable and currently on Cardizem drip and her heart rate is well controlled between 80 to 100 bpm -Hemodynamically stable -Alert oriented and communicative -Urine output 325 mL last 24 hours and increased Bumex to 2 mg IV 3 times daily -Left-sided thoracentesis done drained 1.1 L of straw-colored fluid and fluid sent for pleural fluid analysis and cytology Medications: Reviewed: Yes Vitals/I&O/Wt Last Vital Signs Temp 97.4 F L 02/25/21 10:00 Pulse 94 02/25/21 10:00 Resp 18 02/25/21 12:06 BP 117/75 02/25/21 10:00 Pulse Ox 95 02/25/21 10:00 02/24/21 02/25/21 02/25/21 22:59 06:59 14:59 Intake Total 519.04 / 719.04 330 / 1049.04 500 / 500 Output Total 325 / 325 Balance 519.04 / 719.04 5 / 724.04 500 / 500 Weight last 48 hrs Weight 155 lb 6.4 oz Weight 148 lb 11.2 oz Weight 149 lb 6.4 oz Physical Exam Narrative: EXAM NARRATIVE: General: alert, NAD HEENT: conj clear, EOMI, PERRL, mmm, Neck: supple, no meningismus Heme: no cervical LAP Pulmonary: Reduced breath sounds on left lower lung zone Cardiovascular: rrr, nl s1s2, no mrg Abdomen: soft, nt, nd, no r/g, bs+ Extremities: pulses +, 1+ pitting pedal edema, no c/c : no CVA tenderness Skin: intact, no rash MSK: no back or neck pain Neurologic: grossly intact Urinary Catheter Management^: Escobar: Cath Placed During This Visit: yes Reason for Continuing Indwelling Catheter: Accurate Measurement of Urinary Output in Critically Ill Patients Urinary Catheter Date of Insertion: 02/17/21 Urinary Catheter Time of Insertion: 14:30 Data : 02/25/21 04:23 02/25/21 04:23 Other Labs: Laboratory Results WBC 8.3 10^3/uL (4.0-10.0) 02/25/21 04:23 RBC 2.82 10^6/uL (4.1-5.3) L 02/25/21 04:23 Hgb 7.8 g/dL (11.5-15.3) L 02/25/21 04:23 Hct 25.9 % (37.0-47.0) L 02/25/21 04:23 MCV 91.8 fL (81-99) 02/25/21 04:23 MCH 27.7 pg (28.0-34.0) L 02/25/21 04:23 MCHC 30.1 g/dL (30.0-36.0) 02/25/21 04:23 RDW 19.0 % (12.1-15.1) H 02/25/21 04:23 Plt Count 177 10^3/cmm (130-400) 02/25/21 04:23 MPV 10.3 fL (7.4-10.4) 02/25/21 04:23 Neut % (Auto) 74.7 % 02/25/21 04:23 Lymph % (Auto) 13.1 % 02/25/21 04:23 Cecil % (Auto) 9.3 % 02/25/21 04:23 Eos % (Auto) 1.8 % 02/25/21 04:23 Baso % (Auto) 0.4 % 02/25/21 04:23 Neut # (Auto) 6.21 10^3/uL (1.8-7.7) 02/25/21 04:23 Lymph # (Auto) 1.1 10^3/uL (0.8-4.8) 02/25/21 04:23 Cecil # (Auto) 0.8 10^3/uL (0.2-0.9) 02/25/21 04:23 Eos # (Auto) 0.2 10^3/uL (0.0-0.8) 02/25/21 04:23 Baso # (Auto) 0.0 10^3/uL (0.0-0.1) 02/25/21 04:23 Nucleated RBC % (auto) 0 % 02/25/21 04:23 Nucleated RBCs # 0.0 /100WBC 02/25/21 04:23 Differential Comment Yes 02/25/21 11:30 ESR 18 mm/hr (0-15) H 02/20/21 04:35 PT 18.90 SECONDS (12.1-14.9) H 02/25/21 04:23 INR 1.55 (0.8-1.2) H 02/25/21 04:23 Specimen Type Arterial 02/23/21 14:00 Sample Site Radial, right 02/23/21 14:00 ABG pH 7.39 (7.35-7.45) 02/23/21 14:00 ABG pCO2 34.8 mmHg (35-45) L 02/23/21 14:00 ABG pO2 67.1 mmHg (80.0-100.0) L 02/23/21 14:00 ABG HCO3 20.8 mmol/L (22-26) L 02/23/21 14:00 ABG O2 Saturation 92.8 02/23/21 14:00 ABG Base Excess -3.7 mmol/L (-2.0-2.0) L 02/23/21 14:00 Deven Test Pos 02/23/21 14:00 A-a O2 Gradient 5.1 mmHg (5-10) 02/23/21 14:00 Hematocrit 29.4 % (37-47) L 02/23/21 14:00 Hgb O2 Saturation 90.9 % (95-100) L 02/23/21 14:00 Carboxyhemoglobin 1.1 %THgb (0.4-20.1) 02/23/21 14:00 Methemoglobin 0.9 % (0.4-1.5) 02/23/21 14:00 Total Hemoglobin 9.6 g/dL (12-16) L 02/23/21 14:00 Sodium 129.0 mmol/L (131-143) L 02/23/21 14:00 Potassium 4.6 mmol/L (3.5-5.0) 02/23/21 14:00 Glucose 112.0 mg/dL (70-115) 02/23/21 14:00 Ionized Calcium 1.0 mmol/L (1.1-1.4) L 02/23/21 14:00 O2 Delivery Device Nc 02/23/21 14:00 O2 Liters/Min 33.0 % 02/23/21 14:00 Slate Roofer ID jmn 02/23/21 14:00 Sodium 127 mmol/L (136-145) L 02/25/21 04:23 Potassium 4.4 mmol/L (3.5-5.1) 02/25/21 04:23 Chloride 93 mmol/L (98-107) L 02/25/21 04:23 Carbon Dioxide 20 mmol/L (22-29) L 02/25/21 04:23 Anion Gap 18.4 (5-19) 02/25/21 04:23 BUN 71 mg/dL (8-23) H 02/25/21 04:23 Creatinine 5.0 mg/dL (0.5-0.9) H 02/25/21 04:23 GFR Calculation Not Reportable 02/25/21 04:23 Glucose 106 mg/dL (65-115) 02/25/21 04:23 Calculated Osmolality 285 mOsm/kg (285-295) 02/25/21 04:23 Lactate 2.0 mmol/L (0.5-2.2) 02/23/21 04:40 Calcium 7.4 mg/dL (8.5-10.5) L 02/25/21 04:23 Phosphorus 5.8 mg/dL (2.5-4.5) H 02/25/21 04:23 Magnesium 1.9 mg/dL (1.7-2.3) 02/25/21 04:23 Iron 51 ug/dL (37-145) 02/23/21 15:05 Iron Cancelled 02/23/21 15:05 TIBC 85 mcg/dl 02/23/21 15:05 % Saturation 60.0 % (20-50) H 02/23/21 15:05 Unsat Iron Binding 34 ug/dL (112-347) L 02/23/21 15:05 Ferritin 286 ng/mL (15-150) H 02/23/21 15:05 Total Bilirubin 0.7 mg/dL (0.15-1.2) 02/25/21 04:23 AST 18 U/L (0-32) 02/25/21 04:23 ALT 6 U/L (0-33) 02/25/21 04:23 Alkaline Phosphatase 95 IU/L (35-105) 02/25/21 04:23 Creatine Kinase 13 U/L (26-192) L 02/20/21 04:35 Troponin T Baseline 70 ng/L (0-10) H 02/17/21 10:53 Troponin T 120 Minute 80.91 ng/L (0-10) H 02/17/21 13:03 Delta Troponin T 10.91 ABS# (0-10) H* 02/17/21 13:03 Troponin T Hi Sens 6Hr 74.81 ng/L (0-10) H 02/17/21 16:41 Troponin T Hi Sens 6Hr Delta 4.81 ng/L (0-12) 02/17/21 16:41 C-Reactive Protein 27.8 mg/L (0.0-4.9) H 02/23/21 04:40 NT-Pro-B Natriuret Pep 33240 pg/mL (0-450) H 02/25/21 04:23 Total Protein 4.9 g/dL (6.6-8.7) L 02/25/21 04:23 Albumin 2.9 g/dL (3.5-5.2) L 02/25/21 04:23 Globulin 2.0 g/dL (1.3-4.6) 02/25/21 04:23 25-OH Vitamin D Total 33 ng/mL (30-100) 02/24/21 05:18 Procalcitonin 0.43 ng/mL (0-0.5) 02/23/21 04:40 TSH 0.58 uIU/mL (0.27-4.20) 02/23/21 15:05 PTH Intact 144.7 pg/mL (15-65) H 02/24/21 05:18 Calcium (PTH Intact) 7.0 mg/dL (8.5-10.5) L 02/24/21 05:18 Random Cortisol 16.73 ug/dL (2.47-19.5) 02/23/21 15:05 Urine Color Yellow (Yellow) 02/24/21 05:00 Urine Appearance Hazy (CLEAR) A 02/24/21 05:00 Urine pH 5 (5-7) 02/24/21 05:00 Ur Specific [place] 1.020 (1.005-1.030) 02/24/21 05:00 Urine Protein Trace (Negative) 02/24/21 05:00 Urine Glucose (UA) Norm (Normal) 02/24/21 05:00 Urine Ketones 1+ (Negative) H 02/24/21 05:00 Urine Blood 2+ (Negative) H 02/24/21 05:00 Urine Nitrate Negative (Negative) 02/24/21 05:00 Urine Bilirubin 1+ (Negative) H 02/24/21 05:00 Urine Urobilinogen 1 mg/dL (Negative) H 02/24/21 05:00 Ur Leukocyte Esterase 2+ (Negative) H 02/24/21 05:00 Urine RBC 15-25 /hpf (0-2) H 02/24/21 05:00 Urine WBC 5-10 /hpf (0-5) H 02/24/21 05:00 Ur Squamous Epith Cells 5-10 /hpf (0-5) H 02/24/21 05:00 Amorphous Sediment 2+ /hpf 02/24/21 05:00 Urine Bacteria 1+ /hpf (NONE) H 02/24/21 05:00 Hyaline Casts 5-10 /lpf H 02/24/21 05:00 Fluid Color Yellow 02/25/21 11:30 Fluid Appearance Cloudy 02/25/21 11:30 Fluid Specific Grav 1.010 02/25/21 11:30 Fluid pH 8.0 02/25/21 11:30 Fluid WBC 300 /uL 02/25/21 11:30 Fluid RBC 2.000 10^3/uL 02/25/21 11:30 Fld Polynuclear WBCs # 0.155 02/25/21 11:30 Fld Polynuclear WBCs % 51.700 % 02/25/21 11:30 Fl Mononucl WBCs #(Auto) 0.145 02/25/21 11:30 Fl Mononuclear % Auto 48.300 % 02/25/21 11:30 Fluid Glucose 99.0 mg/dL 02/25/21 11:30 Fluid Albumin 0.6 g/dL 02/25/21 11:30 Fluid LDH 64 U/L 02/25/21 11:30 Fluid Amylase 18 U/L 02/25/21 11:30 Fluid Alk Phosphatase 14 IU/L 02/25/21 11:30 Fluid Cholesterol 6 mg/dL (0-200) 02/25/21 11:30 Fluid Triglycerides 21 mg/dL (0-150) 02/25/21 11:30 Fluid Uric Acid 11 mg/dL 02/25/21 11:30 Hepatitis A IgM Ab Non-reactive (Nonreactive) 02/20/21 04:35 Hep Bs Antigen Non-reactive (Nonreactive) 02/20/21 04:35 Hep B Core IgM Ab Non-reactive (Nonreactive) 02/20/21 04:35 Hepatitis C Antibody Non-reactive (Nonreactive) 02/23/21 15:05 HIV 1&2 Ab & HIV 1 Ag Non-reactive (Non-Reactiv) 02/20/21 04:35 HIV 1&2 Antibody Non-reactive (Non-Reactiv) 02/20/21 04:35 Impressions Renal Ultrasound 02/19/21 11:07 IMPRESSION: 1. Echogenic kidneys consistent with a medical renal disease. 2. 4.3 cm benign left renal cyst. 3. No hydronephrosis. 4. Bilateral pleural effusions larger on the left side. Chest CT 02/23/21 13:34 IMPRESSION: 1. Interval development of a anterior segment right upper lobe spiculated mass with evidence of early cavitation dimensions approximately 37 mm x 25 mm x 34 mm. Concern for primary lung carcinoma. 2. Moderate volume left pleural effusion and small volume right. 3. Left upper and left lower lobe consolidated alveolar airspace disease. 4. Mild centrilobular emphysema with associated COPD/chronic bronchitis. 5. Small volume pericardial effusion. 6. Advanced 3 vessel coronary artery disease. 7. Middle mediastinal prominent lymph nodes. 8. Other nonurgent, nonemergent, chronic, and age related findings as detailed in text above. Radiation Dose CTDIVOL = (mGy): DLP = 498.62 (mGy-cm) ADDENDUM: 02/23/21 0930 THIS REPORT CONTAINS FINDINGS THAT MAY BE CRITICAL TO PATIENT CARE. The findings were verbally communicated via telephone conference with Nino Goodman at 6:30 PM CDT on 02/23/2021. The findings were acknowledged and understood. Radiation Dose CTDIVOL = (mGy): DLP = 498.62 (mGy-cm) Chest X-Ray 02/25/21 07:00 IMPRESSION: 1. Increasing bilateral pulmonary infiltrates and increasing left pleural effusion since prior study. This may represent increasing pneumonia however fluid overload could have similar appearance. 2. Focal density in the right upper lobe as described previously. This may represent focal pneumonia or mass. 3. Cardiac enlargement unchanged Micro: Microbiology 02/24/21 03:44 Urine Culture - Preliminary Urine Catheterized A&P Assessment and plan (1) Acute respiratory failure with hypoxia: Status: Acute (2) CHF (congestive heart failure): Status: Chronic Qualifiers: Heart failure type: systolic Heart failure chronicity: acute on chronic Qualified Code(s): I50.23 - Acute on chronic systolic (congestive) heart failure (3) Atrial fibrillation with rapid ventricular response: Status: Acute (4) Bilateral pleural effusion: Status: Acute (5) Pneumonia: Status: Acute Qualifiers: Pneumonia type: due to unspecified organism Laterality: left Lung location: upper lobe of lung Qualified Code(s): J18.9 - Pneumonia, unspecified organism (6) 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: Status: Acute (7) Left renal mass: Status: Acute (8) Anemia: Status: Acute Qualifiers: Anemia type: due to chronic kidney disease Chronic kidney disease stage: stage 4 (severe) Qualified Code(s): N18.4 - Chronic kidney disease, stage 4 (severe); D63.1 - Anemia in chronic kidney disease (9) Acute kidney injury superimposed on chronic kidney disease: Status: Acute (10) UTI (urinary tract infection): Status: Acute Qualifiers: Urinary tract infection type: site unspecified Hematuria presence: without hematuria Qualified Code(s): N39.0 - Urinary tract infection, site not specified (11) MRSA pneumonia: Status: Acute Qualifiers: Laterality: left Lung location: upper lobe of lung Qualified Code(s): J15.212 - Pneumonia due to Methicillin resistant Staphylococcus aureus #Acute respiratory failure with hypoxia #Bilateral pleural effusion left greater than right #Right upper lung spiculated mass with cavitation concerning for malignancy #Centrilobular emphysema in patient history of [id number] smoking quit 1999 #Atrial fibrillation with RVR #Acute on chronic congestive heart failure-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 echogenic mass on echo 01/26/2021-suspicious subvalvular calcified apparatus vs thrombus #Exophytic mass arising from the left kidney midpole concerning for renal cell carcinoma #SHAQUILLE on CKD stage IV likely due to cardiorenal syndrome #MRSA pneumonia and MRSA UTI -Currently on 5 L nasal cannula and saturating 94% -DuoNeb nebulization every 6 hours as needed for underlying COPD -On Cardizem drip for A. fib RVR-rate controlled between 80 to 100 bpm -Hemodynamically stable -Patient not on anticoagulation due to history of GI bleed and today H&H 7.4/24 -Echo 01/06/2021 showed grade 4 diastolic dysfunction, RVSP 52, LVEF 62% and?? Echogenic mass observed in the left ventricle could be subvalvular calcified apparatus in this suboptimal images and further exploration with contrast echo or MIGUEL A performed if clinically indicated for suspicion of thromboembolic phenomenon -on aspirin/Lipitor for CAD -Made 360 mL urine over last 24 hours; increased Bumex 2 mg IV 3 times daily and albumin as per renal, electrolytes within normal limits and bicarb 21-no hard indication for CRRT/dialysis at this point (-nephrology on board -Sputum positive for MRSA and urine culture positive for MRSA -Patient is on contact isolation and linezolid and imipenem -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 -Known since previous admissions, as per urology - they felt that this is likely looks like a benign cyst, however will need outpatient follow-up -Started on Precedex 0.02 GTT for anxiety Given the overall advanced age and advanced stage of multiple comorbidities with grade 4 diastolic dysfunction and A. fib with RVR causing cardiorenal syndrome leading to worsening kidney functions with baseline stage IV CKD, underlying emphysema, exophytic mass of left kidney suspicious for renal cell cancer-left pleural effusion can be more likely secondary to pneumonia versus fluid overload due to CHF/CKD. But given the findings on CT chest with right upper lobe cavitary lesion and history of [id number] smoking-I performed left pleural fluid thoracentesis and drained 1100 cc of straw-colored fluid and sent for cytology and pleural fluid analysis. Had extensive conversation with patient's brother, son and daughter at bedside regarding patient's overall clinical condition. As patient has normal mentation and can make decisions-she agreed not to go for any aggressive surgery but okay to do things that keep her more comfortable. I discussed about possible sarah lysis in couple of days and patient wanted to go for dialysis at this point of time. Daughter reported that patient had a right upper lobe lesion 2 years back during which she went to [facility] and had bronchoscopy and biopsies which were all negative for malignancy. And at that point of time patient decided to go for comfort care except allowing to medically manage her A. fib RVR and CHF and CKD. All these goals of care needs to be readdressed with patient and family in future meetings as personally I feel patient has very poor functional status and overall poor clinical outcome. Attestations Medical Necessity Statement*: Patient requires hospitalization, for acute respiratory failure, squamous cell carcinoma lung, pneumonia, pulmonary edema, systolic and diastolic CHF, SHAQUILLE on CKD, protein calorie malnutrition, deconditioning, anasarca Time Spent in Patient Care: Greater than 35 minutes (>than 50% of time spent in counselling and/or direct pt care on unit) . Critical Care Time: Critical Care Time (min): 55 Coding Level of Care Code Established Pt Acute Usability Engineer for Chg Fwd Patient Type Established History Comprehensive Exam Comprehensive Medical Decision Making High Complexity Diagnoses Acute respiratory failure with hypoxia J96.01 CHF (congestive heart failure) I50.23 Heart failure type: systolic Heart failure chronicity: acute on chronic Atrial fibrillation with rapid ventricular response I48.91 Bilateral pleural effusion J90 Pneumonia J18.9 Pneumonia type: due to unspecified organism Laterality: left Lung location: upper lobe of lung 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 J98.4 Left renal mass N28.89 Anemia N18.4; D63.1 Anemia type: due to chronic kidney disease Chronic kidney disease stage: stage 4 (severe) Acute kidney injury superimposed on chronic kidney disease N17.9; N18.9 UTI (urinary tract infection) N39.0 Urinary tract infection type: site unspecified Hematuria presence: without hematuria MRSA pneumonia J15.212 Laterality: left Lung location: upper lobe of lung Time Spent (min) 55
--- NOTE | 2021-02-25 13:44 | P.PCN_ITS ---
Procedure/Consent Time out: Time Out Performed: Yes Consent: Consent for Procedure: Consent obtained from patient Procedure Narrative: Pulmonary & Critical Care Medicine Procedure -left pleural fluid thoracentesis Procedure: Left pleural fluid thoracentesis Indication: Left pleural effusion Needle Control Cheniller(s): Henrique Sweeneyr Consent: Signed and placed in chart Anesthesia: 10 cc 1% lidocaine without epinephrine Description: Left pleural effusion was localized using ultrasound guidance and the site was marked accordingly. After chlorhexidine skin prep, area was draped in a sterile manner. 1% lidocaine was used for local anesthesia. Thoracentesis catheter was then inserted into the pleural space with aspiration of 1100 cc of pleural fluid. Appearance was straw-colored. Ultrasound guidance used: Yes. Image saved to ultrasound machine yes. EBL: 5 cc Complications: yes Acute Procedures Epistaxis Control: Time out performed: Yes
--- NOTE | 2021-02-25 13:53 | PM.PN ---
Subjective Subjective: Interval history: Underwent left sided thoracentesis with 1100 ml of pleural fluid Medications: Reviewed: Yes Vitals/I&O/Wt Last Vital Signs Temp 97.4 F L 02/25/21 10:00 Pulse 94 02/25/21 10:00 Resp 18 02/25/21 12:06 BP 117/75 02/25/21 10:00 Pulse Ox 95 02/25/21 10:00 02/24/21 02/25/21 02/25/21 22:59 06:59 14:59 Intake Total 519.04 / 719.04 330 / 1049.04 500 / 500 Output Total 325 / 325 Balance 519.04 / 719.04 5 / 724.04 500 / 500 Weight last 48 hrs Weight 155 lb 6.4 oz Weight 148 lb 11.2 oz Weight 149 lb 6.4 oz Physical Exam Narrative: EXAM NARRATIVE: GENERAL: overweight elderly woman in no acute distress HEENT: Extraocular movement intact. No icterus. +pallor NECK: + JVD , No masses CARDIOVASCULAR SYSTEM: S1-S2 irregular. No S3 or S4 present. systolic murmur + RESPIRATORY SYSTEM: Decreased breath sounds at bases. + rales. ABDOMEN: Soft, nontender and obese. Normal bowel sounds present. EXTREMITIES: No cyanosis. 1-2+ edema in legs. legs pretty tender to touch DIRECTOR MATERNAL CHILD: Patient is alert oriented ?3. No focal neurological deficits. SKIN: Normal turgor and temperature. Urinary Catheter Management^: Escobar: Cath Placed During This Visit: yes Reason for Continuing Indwelling Catheter: Accurate Measurement of Urinary Output in Critically Ill Patients Urinary Catheter Date of Insertion: 02/17/21 Urinary Catheter Time of Insertion: 14:30 Data : 02/25/21 04:23 02/25/21 04:23 Micro: Microbiology 02/25/21 11:30 Gram Stain - Final Pleural Fluid 02/24/21 03:44 Urine Culture - Preliminary Urine Catheterized A&P Assessment and plan (1) CHF (congestive heart failure): RV failure with HFmrEF Last known LVEF=45%. -She is on bumex with albumin per nephrology. -Did not tolerate dopamine. May try dobutamine, however likely will have the same outcome. Will defer to primary. -In case she does not have good UO and renal function keeps worsening, will probably need dialysis. -Patient reluctant for dialysis. I had a long discussion with patient and family and all their questions were answered and tenuous state of patient discussed with them. She is presently a full code. Status: Chronic Qualifiers: Heart failure type: systolic Heart failure chronicity: acute on chronic Qualified Code(s): I50.23 - Acute on chronic systolic (congestive) heart failure (2) Acute kidney injury superimposed on chronic kidney disease: SHAQUILLE on CKD stage 4 Status: Acute (3) Atrial fibrillation with rapid ventricular response: On cardizem drip. May transition to PO metoprolol. Status: Acute (4) Elevated troponin: Status: Acute (5) Anemia: Status: Acute Qualifiers: Anemia type: due to chronic kidney disease Chronic kidney disease stage: stage 4 (severe) Qualified Code(s): N18.4 - Chronic kidney disease, stage 4 (severe); D63.1 - Anemia in chronic kidney disease Additional A&P Information Right upper lung spiculated mass with cavitation: concern for malignancy Right upper lung PNA: On antibiotics per primary team (Sputum + MRSA) MRSA UTI Left renal mass Anemia H/O UGIB Hyponatremia Hypomagnesmia : replaced NSVT on telemetry Moderate left and small right pleural effusion Small pericardial effusion on CT chest MIld Pulmonary HTN Thank you for allowing me to participate in patient's care. Please fell free to call with questions or concerns. Attestations Medical Necessity Statement*: needs hospital stay for dCHF and renal failure Time Spent in Patient Care: 16 - 35 minutes (>than 50% of time spent in counselling and/or direct pt care on unit). Coding Level of Care Code Acute Vulcanizer Rubber Plate for Gaby Curry Diagnoses CHF (congestive heart failure) I50.23 Heart failure type: systolic Heart failure chronicity: acute on chronic Acute kidney injury superimposed on chronic kidney disease N17.9; N18.9 Atrial fibrillation with rapid ventricular response I48.91 Elevated troponin R77.8 Anemia N18.4; D63.1 Anemia type: due to chronic kidney disease Chronic kidney disease stage: stage 4 (severe)
[2021-02-25 16:07] LABS: ABNORMAL PROTEIN BAND 1 0.6 g/dL (NONE DETECTED); ALBUMIN 1.8 g/dL (3.8-4.8); ALPHA 1 GLOBULIN 0.5 g/dL (0.2-0.3); ALPHA 2 GLOBULIN 0.5 g/dL (0.5-0.9); BETA 1 GLOBULIN 0.2 g/dL (0.4-0.6); BETA 2 GLOBULIN 0.3 g/dL (0.2-0.5); GAMMA GLOBULIN 1.3 g/dL (0.8-1.7)
[2021-02-25] MEDS: linezolid premix 600 MG/300 ML PREMIX 300 MG IV (16:26)
[2021-02-25] MEDS: sevelamer 800 mg Tablet PO (16:26)
[2021-02-25] MEDS: atorvastatin 40 mg Tablet PO (19:41)
[2021-02-26] VITALS (99 sets, daily range): BP systolic 92–144; BP diastolic 37–99; PULSE 76–114; RESP 12–29; TEMP 35.9–36.6; O2SAT 68–97; BMI 28.0
[2021-02-26 02:53] LABS: Basophils % 0.3 %; Eosinophils # 0.1 10^3/uL (0.0-0.8); Eosinophils % 1.6 %; Hematocrit 26.2 % (37.0-47.0); Lymphocytes # 0.8 10^3/uL (0.8-4.8); Lymphocytes % 11.3 %; Mean Corpuscular HGB Conc 30.5 g/dL (30.0-36.0); Mean Corpuscular Volume 91.6 fL (81-99); Mean Platelet Volume 9.3 fL (7.4-10.4); Monocytes # 0.6 10^3/uL (0.2-0.9); Monocytes % 7.5 %; Neutrophils # 5.86 10^3/uL (1.8-7.7); Neutrophils % 78.6 %; Nucleated Red Blood Cells % 0 %; Platelet Count 127 10^3/cmm (130-400); Red Blood Count 2.86 10^6/uL (4.1-5.3); Red Cell Distribution Width 18.7 % (12.1-15.1); White Blood Count 7.5 10^3/uL (4.0-10.0)
[2021-02-26] MEDS: linezolid premix 600 MG/300 ML PREMIX 300 MG IV ×2 (03:09→17:22)
[2021-02-26 03:23] LABS: NT Pro B Type Natriuretic Pept 14373 pg/mL (0-450); Procalcitonin 0.41 ng/mL (0-0.5)
[2021-02-26 03:35] LABS: Alanine Aminotransferase 6 U/L (0-33); Albumin Level 3.1 g/dL (3.5-5.2); Alkaline Phosphatase 102 IU/L (35-105); Anion Gap 18.2 (5-19); Aspartate Amino Transferase 13 U/L (0-32); Blood Urea Nitrogen 71 mg/dL (8-23); C Reactive Protein 14.6 mg/L (0.0-4.9); Calcium 7.5 mg/dL (8.5-10.5); Carbon Dioxide 22 mmol/L (22-29); Chloride 95 mmol/L (98-107); Globulin 1.5 g/dL (1.3-4.6); Glucose 95 mg/dL (65-115); Magnesium 1.9 mg/dL (1.7-2.3); Osmolality Calculated 293 mOsm/kg (285-295); Phosphorus 6.3 mg/dL (2.5-4.5); Potassium 4.2 mmol/L (3.5-5.1); Sodium 131 mmol/L (136-145); Total Bilirubin 0.8 mg/dL (0.15-1.2); Total Protein 4.6 g/dL (6.6-8.7)
[2021-02-26 05:17] LABS: ABG PCO2 43.2 mmHg (35-45); Arterial Blood Gas Hematocrit 25.2 % (37-47); Base Excess ABG -4.6 mmol/L (-2.0-2.0); Blood Gas Sample Site Brachial, right; Blood Gas Sample Type Arterial; HCO3 ABG 21.5 mmol/L (22-26); Oxygen Device NC; PO2 ABG 65.4 mmHg (80.0-100.0)
--- NOTE | 2021-02-26 07:00 | XRR_ITS ---
PROCEDURE INFORMATION: Exam: XR Chest Exam date and time: 02/26/2021 4:45 AM Age: 85 years old Clinical indication: Shortness of breath; Patient HX: SOB with persistent hypoxia TECHNIQUE: Imaging protocol: XR of the chest. Views: 1 view. COMPARISON: CR XR chest 1V portable [id number] 02/25/2021 5:29 AM FINDINGS: Tubes, catheters and devices: Right IJ approach central line is in satisfactory position, with distal tip at the SVC/RA junction. Lungs: Interval increase of small right pleural effusion and improvement of moderate left pleural effusion, with persistent bilateral airspace opacities. No pneumothorax. Pleural spaces: See Lungs finding. Heart/Mediastinum: Stable cardiomediastinal silhouette. Vasculature: Aortic arch atherosclerotic calcifications seen. Bones/joints: Unremarkable. XR/XR chest 1V portable [id number] IMPRESSION: Interval worsening of small right pleural effusion and improvement of moderate left pleural effusion, with persistent bilateral airspace opacities.
--- NOTE | 2021-02-26 09:02 | PM.PN ---
Subjective Subjective: Interval history: She feels generally okay. She has chronic lower extremity edema which remains relatively stable. She is breathing comfortably with nasal cannula. Thoracentesis performed yesterday. No overt uremic symptoms. I did increase diuretics yesterday, however, urine output in response this has been lackluster. Medications: Reviewed: Yes Vitals/I&O/Wt Last Vital Signs Temp 96.6 F L 02/26/21 04:00 Pulse 109 H 02/26/21 08:41 Resp 18 02/26/21 08:41 BP 119/56 02/26/21 06:00 Pulse Ox 95 02/26/21 08:41 02/25/21 02/26/21 02/26/21 22:59 06:59 14:59 Intake Total 400 / 1125 325 / 1450 Output Total 150 / 150 125 / 275 Balance 250 / 975 200 / 1175 Weight last 48 hrs Weight 70.488 kg Physical Exam Narrative: EXAM NARRATIVE: Constitutional: Awake, comfortable HEENT: Wet mucosa, no jvp, non icteric Lungs: Bilaterally clear without discernible wheeze, rales in all lung zones CVS: S1 S2, no murmurs Abdo: Soft, BS ok Ext 4: 2-3+ edema, peripheral perfusion with no cyanosis Neurological: Grossly non-focal Urinary Catheter Management^: Escobar: Cath Placed During This Visit: yes Reason for Continuing Indwelling Catheter: Accurate Measurement of Urinary Output in Critically Ill Patients Urinary Catheter Date of Insertion: 02/17/21 Urinary Catheter Time of Insertion: 14:30 Data : 02/26/21 02:43 02/26/21 02:43 Micro: Microbiology 02/25/21 11:30 Gram Stain - Final Pleural Fluid 02/24/21 03:44 Urine Culture - Preliminary Urine Catheterized A&P Additional A&P Information 1. Renal Failure CKD with SHAQUILLE. likely hemodynamically mediated, CRS, pre-renal Given oliguria in response to diuretics in the setting of hypervolemia is an indication for dialysis. She will be discussing this with family members, and if they are all agreeable we will proceed with dialysis line placement and dialysis today/tomorrow. am labs Strict Is and Os Avoid the usuals 2. Lung mass s/p thoracentesis; pathology pending indeterminate mass in kidney noted Mgmt per pulm 3. Pneumonia Combo Abx on board D/w Dr Leon Bell MD Nephrology [phone] Patient seen and examined via telemedicine, with the assistance of the bedside RN > 25 min spent in evaluation and mgmt of patient Attestations Medical Necessity Statement*: eval for renal failure Coding Level of Care Code Acute Bobbin Cleaning Machine Operator for Gaby Curry
[2021-02-26] MEDS: aspirin 81 mg EC Tablet PO (09:21)
[2021-02-26] MEDS: calcium carbonate 500 mg Chew Tablet 1000 MG PO ×2 (09:23→17:23)
[2021-02-26] MEDS: sucralfate 1 gm Tablet PO ×2 (09:23→20:51)
[2021-02-26] MEDS: bumetanide 0.25 mg/mL SDV 10 mL 2 MG IV ×3 (09:25→20:51)
--- NOTE | 2021-02-26 10:20 | P.PN_ITS ---
Subjective Subjective: Interval history: Underwent left sided thoracentesis yesterday with 1100 ml of pleural fluid. Poor urine output. Medications: Reviewed: Yes Vitals/I&O/Wt Last Vital Signs Temp 96.6 F L 02/26/21 04:00 Pulse 109 H 02/26/21 08:41 Resp 18 02/26/21 08:41 BP 119/56 02/26/21 06:00 Pulse Ox 95 02/26/21 08:41 02/25/21 02/26/21 02/26/21 22:59 06:59 14:59 Intake Total 400 / 1125 325 / 1450 Output Total 150 / 150 125 / 275 Balance 250 / 975 200 / 1175 Weight last 48 hrs Weight 155 lb 6.4 oz Physical Exam Narrative: EXAM NARRATIVE: GENERAL: overweight elderly woman in no acute distress HEENT: Extraocular movement intact. No icterus. +pallor NECK: + JVD , No masses CARDIOVASCULAR SYSTEM: S1-S2 irregular. No S3 or S4 present. systolic murmur + RESPIRATORY SYSTEM: Decreased breath sounds at bases. + crakles. ABDOMEN: Soft, nontender and obese. Normal bowel sounds present. EXTREMITIES: No cyanosis. 1-2+ edema in legs. 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 No focal neurological deficits. SKIN: Normal turgor and temperature. 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 -She is on bumex with albumin per nephrology. -Did not tolerate dopamine. May try dobutamine, however likely will have the same outcome. Will defer to primary. -Continues to have poor urine output and plan is for dialysis tomorrow. -Patient is agreeable for dialysis. Status: Chronic Qualifiers: Heart failure chronicity: acute on chronic Heart failure type: systolic Qualified Code(s): I50.23 - Acute on chronic systolic (congestive) heart failure (2) Acute kidney injury superimposed on chronic kidney disease: SHAQUILLE on CKD stage 4 Status: Acute (3) Atrial fibrillation with rapid ventricular response: On cardizem drip. May transition to PO metoprolol. Status: Acute (4) Elevated troponin: Status: Acute (5) Anemia: Status: Acute Qualifiers: Anemia type: due to chronic kidney disease Chronic kidney disease stage: stage 4 (severe) Qualified Code(s): N18.4 - Chronic kidney disease, stage 4 (severe); D63.1 - Anemia in chronic kidney disease Additional A&P Information Right upper lung spiculated mass with cavitation: concern for malignancy Right upper lung PNA: On antibiotics per primary team (Sputum + MRSA) MRSA UTI Left renal mass Anemia H/O UGIB Hyponatremia Hypomagnesmia : replaced NSVT on telemetry Moderate left and small right pleural effusion Small pericardial effusion on CT chest MIld Pulmonary HTN Thank you for allowing me to participate in patient's care. Please fell free to call with questions or concerns. Attestations Medical Necessity Statement*: needs hospital stay for dCHF and renal failure Time Spent in Patient Care: 16 - 35 minutes (>than 50% of time spent in counselling and/or direct pt care on unit) . Coding Level of Care Code Acute Precision Lens Grinder Apprentice for Chg Fwd Diagnoses CHF (congestive heart failure) I50.23 Heart failure chronicity: acute on chronic Heart failure type: systolic Acute kidney injury superimposed on chronic kidney disease N17.9; N18.9 Atrial fibrillation with rapid ventricular response I48.91 Elevated troponin R77.8 Anemia N18.4; D63.1 Anemia type: due to chronic kidney disease Chronic kidney disease stage: stage 4 (severe)
--- NOTE | 2021-02-26 10:26 | P.CONIM_ITS ---
Providers/Reason For Consult Consulting Physician/Specialty*: Dr. Carter Reason for Consult*: End-stage renal disease/acute kidney injury superimposed on chronic kidney disease Requesting Physician: Dr. Bell and Dr. Carter Attending Physician: Long Quintero MD Primary Care Provider: Mary Castellano MD History of Present Illness History of Present Illness Chief Complaint: Issues with the kidneys History of present illness: Ms. Janelle Riley is a pleasant 85 year old female admitted to the hospitalist service with history of multiple medical comorbidities in the form of systolic and diastolic heart failure, COPD, pu lmonary pretension, paroxysmal atrial fibrillation, not on anticoagulation due to hemoptysis, GI bleed, aortic stenosis, chronic anemia, patient got admitted to the hospitalist service on February 17, 2021 with shortness of breath and increased cough. Patient also was diagnosed with right upper lobe pneumonia atrial fibrillation with RVR and congestive heart failure exacerbation. Recently patient undergone thoracocentesis yesterday by Dr. Pascual customer sales specialist of the left hemithorax and because of worsening kidney functions and fluid retention nephrology service recommended hemodialysis in the form of tunneled catheter. General surgery was consulted for further evaluation and placement of tunneled hemodialysis catheter. Review of Systems General: Reports: 10 or more systems reviewed and unremarkable except in HPI and below Meds/Allergies Home Medications and Allergies Home Medications Medication Instructions Recorded Confirmed Last Taken Type pantoprazole 40 mg tablet,delayed 40 mg PO BID@08,17 12/17/19 02/17/21 02/17/21 History release acetaminophen 325 mg tablet 325 mg PO QID PRN 01/14/20 02/17/21 01/30/21 07:30 History 650 MG atorvastatin 40 mg PO BEDTIME@199901/30/21 02/17/21 02/16/21 History bisacodyl [Dulcolax (bisacodyl)] 10 mg [place] DAILY PRN 01/30/21 02/17/21 Unknown History docusate sodium [DOK] 100 mg PO BID@0800,199901/30/21 02/17/21 02/17/21 History potassium chloride [Klor-Con M20] 40 meq PO DAILY@0800 01/30/21 02/17/21 02/17/21 History sevelamer carbonate 800 mg PO DAILY@1700 01/30/21 02/17/2121 History sucralfate [Carafate] 1 g PO BID@0800,199901/30/21 02/17/21 02/17/21 History diltiazem HCl 120 mg PO BID 02/17/21 02/17/21 02/17/21 History furosemide [Lasix] 40 mg PO BID 02/17/21 02/17/21 02/17/21 History prednisone 5 mg PO DAILY 02/17/21 02/17/21 02/17/21 History Allergies Allergy/AdvReac Type Severity Reaction Status Date / Time allopurinol Allergy Severe rash, Verified 02/26/21 10:34 excoriation of skin amiodarone Allergy Intermediate rash Verified 02/26/21 10:34 digoxin Allergy Unknown Unknown Verified 02/26/21 10:34 lisinopril Allergy Unknown Unknown Verified 02/26/21 10:34 milk Allergy Unknown Unknown Verified 02/26/21 10:34 Penicillins Allergy Unknown Unknown Verified 02/26/21 10:34 Current Medications Current Medications Generic Name Dose Route Start Last Admin Trade Name Freq PRN Reason Stop Dose Admin Acetaminophen 650 mg 02/17/21 14:53 02/24/21 00:33 Acetaminophen 325 Mg Tablet PO 650 mg Q6H PRN Administration Mild/Mod Pain Or Temp >/= 101 Albuterol/Ipratropium 3 ml 02/19/21 17:32 02/24/21 07:45 Ipratropium-Albuterol 3 Ml Neb INHALATION 3 ml QID.RESPIRATORY PRN Administration SHORTNESS OF BREATH Aspirin 81 mg 02/17/21 15:30 02/26/21 09:21 Aspirin 81 Mg Ec Tablet PO 81 mg DAILY RITA Administration Atorvastatin Calcium 40 mg 02/17/21 20:00 02/25/21 19:41 Atorvastatin 40 Mg Tablet PO 40 mg BEDTIME@1999 RITA Administration Bumetanide 2 mg 02/25/21 11:30 02/26/21 09:25 Bumetanide 0.25 Mg/Ml Sdv 10 Ml IV 2 mg TID RITA Administration Calcium Carbonate 1,000 mg 02/24/21 09:00 02/26/21 09:23 Calcium Carbonate 500 Mg Chew Tablet PO 1,000 mg BID RITA Administration Imipenem/Cilastatin Sodium 250 100 mls @ 200 mls/hr 02/18/21 09:00 02/26/21 09:24 mg/ Sodium Chloride IV 200 mls/hr Q12H RITA Administration Protocol Linezolid 600 mg in 300 mls @ 300 mls/hr 02/19/21 12:00 02/26/21 04:10 Zyvox Premix IV Infused Q12H RITA Infusion Protocol Albumin Human 25 gm in 100 mls @ 60 mls/hr 02/24/21 09:00 02/26/21 09:21 Albumin IV 100 mls/hr DAILY RITA Administration Diltiazem HCl 125 mg/ Sodium 125 mls @ 0 mls/hr 02/24/21 15:30 02/25/21 16:32 Chloride IV 5 mg/hr .Q0M RITA 5 mls/hr Administration Protocol Per Protocol Midodrine 10 mg 02/17/21 21:00 02/24/21 08:32 Midodrine 5 Mg Tablet PO 10 mg TID RITA Administration Morphine Sulfate 1 mg 02/24/21 12:02 02/25/21 12:06 Morphine 4 Mg/Ml Sdv 1 Ml IVP 1 mg Q4H PRN Administration SEVERE PAIN Ondansetron HCl 4 mg 02/17/21 14:53 02/25/21 09:38 Ondansetron 2 Mg/Ml Sdv 2 Ml IVP 4 mg Q8H PRN Administration vomiting, or N/V if npo Sevelamer Carbonate 800 mg 02/17/21 17:00 02/25/21 16:26 Sevelamer 800 Mg Tablet PO 800 mg DAILY@1700 RITA Administration Sucralfate 1 gm 02/17/21 20:00 02/26/21 09:23 Sucralfate 1 Gm Tablet PO 1 gm BID@0800,2000 RITA Administration PFSH Acute PFSH: Medical History (Updated 02/25/21 @ 11:05 by Long Quintero MD) LIZABETH inhibitor intolerance Anemia Aortic stenosis Mild Cardiomyopathy 35-40% CHF (congestive heart failure) Chronic kidney disease, stage 4 (severe) COPD (chronic obstructive pulmonary disease) Gout Hemoptysis Left renal mass Paroxysmal A-fib Pulmonary hypertension Surgical History History of cardiac catheterization History of cataract surgery Bilateral S/P bladder repair Bladder suspension S/P hysterectomy / BSO Family History Mother CAD (coronary artery disease) Myocardial infarction Father CAD (coronary artery disease) Social History Smoking and tobacco status: former smoker Quit status (tobacco): has quit using tobacco Year quit tobacco: 1999 Former quit date comment: [id number] history prior to quitting Alcohol intake: never Marital status: / Current occupational status: retired Vitals/I&O/Wt Last Vital Signs Temp 96.6 F L 02/26/21 04:00 Pulse 109 H 02/26/21 08:41 Resp 18 02/26/21 08:41 BP 119/56 02/26/21 06:00 Pulse Ox 95 02/26/21 08:41 02/25/21 02/26/21 02/26/21 22:59 06:59 14:59 Intake Total 400 / 1125 325 / 1450 Output Total 150 / 150 125 / 275 Balance 250 / 975 200 / 1175 Weight last 48 hrs Weight 155 lb 6.4 oz Physical Exam Narrative: EXAM NARRATIVE: Patient is conscious alert oriented X3 BMI 28.4 On nasal cannula Head and neck examination PERRLA no masses no cervical lymphadenopathy no jaundice Right IJ triple-lumen central line in place without complication Cardiac examination audible S1-S2 no murmurs no gallops no arrhythmias Chest fair air entry bilateral Abdomen nontender nondistended soft no organomegaly guarding or rigidity/no signs of peritonitis Urinary Catheter Management^: Escobar: Cath Placed During This Visit: yes Reason for Continuing Indwelling Catheter: Accurate Measurement of Urinary Output in Critically Ill Patients Urinary Catheter Date of Insertion: 02/17/21 Urinary Catheter Time of Insertion: 14:30 Data Micro: Micro: Microbiology 02/25/21 11:30 Gram Stain - Final Pleural Fluid Body Fluid Culture - Preliminary 02/24/21 03:44 Urine Culture - Fi nal Urine Catheterize d A&P Assessment and plan (1) Acute kidney injury superimposed on chronic kidney disease: Plan of care; After thorough history physical examination and reviewing the chart and reviweing the images with my personal intrepretation.I counseled the patient with her power of assistant attorney general patient's brother and her daughter for placement of Tunneled hemodialysis catheter and central line, indications, risks including pneumothorax that may require Chest tube(s) placement and potential injury of major vascular structures that may require Thoractomy, benefits,indications and alternatives were all discussed with the patient, patient understands and is interested to proceed. Rationale was carefully and clearly discussed with the patient and her family.Appropriate informed consent have been reviewed and signed. We will keep the patient n.p.o. after midnight and the plan to place the catheter and central line tomorrow in the OR. Status: Acute Consult Attestations Medical Necessity Statement: Patient requiring inpatient hospitalization passing 2 midnights with ICU care and for hemodialysis catheter placement Time Spent in Patient Care: (>than 50% of time spent in counselling and/or direct pt care on unit) . Coding Level of Care Code Acute Systems Engineer for Gaby Curry Diagnoses Acute kidney injury superimposed on chronic kidney disease N17.9; N18.9
--- NOTE | 2021-02-26 13:13 | PM.PN ---
Subjective Subjective: Interval history: This morning patient was examined, she has remained bedridden for the last 24 hours, she was able to get up to the side of bed, was quite short of breath, and weak, has severe back pain and neuropathic pain in her bilateral lower extremities whenever she is moved, she remains on Cardizem, she is off dopamine, maps are greater than 75, heart rates are better controlled, still in A. fib, her urine output remains lackluster despite increased diuretic therapy, 250 cc in the last 24 hours, her appetite remains poor, according to his dietitian, she has had less than 5% of her meals, patient tells me she just does not have the appetite, currently on 5 L, denying shortness of breath, With patient's healthcare power of divorce attorney, Nestor at bedside, patient's daughter, and patient I had the following discussion in the presence of nurses: -I had a discussion of patient's current chronic kidney disease stage IV, with declining urine output, in the face of fluid overload and diastolic and systolic CHF, and her increasing oxygen requirements, and increasing anasarca I am concerned for worsening fluid overload. I discussed with all parties about proceeding with dialysis, I discussed the risks of the surgery itself, general surgical risks were discussed, risk of bleeding, risk of infections, risk of anesthesia, risk of adverse cardiovascular event, risk of arrhythmia, the risk that she remains intubated given her acute hypoxic respiratory failure/and her lung cancer, she might remain intubated after procedure, remained intubated for a prolonged period of time, she might not make it off the ventilator and might require a tracheostomy. In addition I discussed dialysis itself, risks and benefits of dialysis, my concerns for her low blood pressures during dialysis, she might require extra long dialysis sessions, many dialysis sessions, for fluid overload. After discussion of the risk and benefits, all parties voiced understanding, all questions answered, agreed to proceed with dialysis catheter placement and dialysis. Patient and Nestor voiced understanding, all questions answered, agreed to proceed -I confirmed with patient that she is a full code -I discussed with all parties given the concern for cavitary right lung mass, concerning for squamous cell carcinoma, given her poor functional status, at this point I do not feel that she would be able to tolerate any aggressive interventions such as a biopsy or even chemotherapy, however we will have her follow-up with hematology oncology as outpatient -She did have thoracocentesis yesterday, will see what the cytology shows, hopefully it can provide us some directions so we do not need to proceed with biopsy or bronchoscopy -I discussed her MRSA UTI, MRSA sputum culture, pneumonia -I discussed her anemia -I have discussed how we cannot anticoagulate her given her risk of GI bleeds, and her intolerance to SCDs due to severe peripheral neuropathy, I am quite worried about her significant risk of DVTs and PEs, given her unique situation the only way that we could work around this is frequent repositioning, PT OT. However patient does have significant pain during repositioning, I have added morphine, but patient is a bit hesitant to use it -I discussed patient's underlying chronic kidney disease stage IV, her severe diastolic and systolic heart failure, her recurrent hospitalizations, her protein calorie malnutrition, her hypoalbuminemia, her anasarca -Here she remains bedridden, with evidence of physical deconditioning, muscle wasting, I am concerned for her overall decline -Generally I am worried that she will not be able to tolerate dialysis catheter placement, dialysis, aggressive interventions such as pursuing this in lung malignancy currently, I am concerned for her generalized decline, her poor functional status, I have voiced my concerns, all parties voiced understanding, all questions answered, agreed to proceed with dialysis, dialysis catheter placement, all medical interventions for now Vitals/I&O/Wt Last Vital Signs Temp 96.6 F L 02/26/21 04:00 Pulse 109 H 02/26/21 08:41 Resp 18 02/26/21 08:41 BP 119/56 02/26/21 06:00 Pulse Ox 95 02/26/21 08:41 02/25/21 02/26/21 02/26/21 22:59 06:59 14:59 Intake Total 400 / 1125 325 / 1450 Output Total 150 / 150 125 / 275 Balance 250 / 975 200 / 1175 Weight last 48 hrs Weight 70.488 kg Physical Exam Const: COMMON NORMALS: patient oriented x3 GENERAL APPEARANCE: cooperative, ill appearing and frail appearing Chest: COMMONS NORMALS: normal inspection of the chest Resp: COMMON NORMALS: normal respiratory effort and No use of accessory muscles AUSCULTATION: crackles Cardio: COMMON NORMALS: regular rate, regular rhythm, S1 normal heart sound present, S2 normal heart sound present and No murmurs present (Cardio) RATE: regular rate RHYTHM: regular rhythm HEART SOUNDS: S1 normal heart sound present, S2 normal heart sound present and Murmur heart sound present systolic GI: COMMON NORMALS: Normal to inspection, nondistended, normoactive bowel sounds present, Soft to palpation and non-tender PALPATION: Yes Soft to palpation Extremity: COMMON NORMALS: no calf tenderness NARRATIVE EXTREMITY EXAM: 3+ pitting edema, generalized anasarca OTHER: Temporal muscle wasting, muscle wasting Neuro: COMMON NORMALS: patient oriented x3 Urinary Catheter Management^: Escobar: Cath Placed During This Visit: yes Reason for Continuing Indwelling Catheter: Accurate Measurement of Urinary Output in Critically Ill Patients Urinary Catheter Date of Insertion: 02/17/21 Urinary Catheter Time of Insertion: 14:30 Data : 02/26/21 02:43 02/26/21 02:43 Micro: Microbiology 02/25/21 11:30 Gram Stain - Final Pleural Fluid Anaerobic Culture - Preliminary Body Fluid Culture - Preliminary 02/24/21 03:44 Urine Culture - Final Urine Catheterized A&P Assessment and plan (1) Left renal mass: -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 fib with RVR, cavitary lung mass, bilateral pleural effusions -Echocardiogram from January 06, 2021 shows ejection fraction of 45%, global hypokinesis, grade 4 out of 4 diastolic dysfunction, severely elevated filling pressures, moderate pulmonary hypertension, right ventricular systolic pressure 52.7 mmHg - anterior segment right upper lobe spiculated mass with evidence of early cavitation dimensions approximately 37 mm x 25 mm x 34 mm. Concern for primary lung carcinoma. Moderate left pleural and small right pleural effusion -Status post thoracocentesis, 1200 mL drained on the left, seems transudative, pathology pending, Gram stain no organisms, moderate white blood cells -Repeat chest x-ray shows improved left pleural effusion, enlargement of right pleural effusion -Does have increased anasarca today, 3+ pitting edema, crackles on exam on 5 L Plan: -Continue to monitor in ICU -On Primaxin, Zyvox, monitor respiratory status closely, DuoNeb, oxygen therapy, flutter valve, incentive spirometer, -Follow blood cultures, sputum cultures, urine bacterial antigens, MRSA in sputum culture, urine culture positive for staph aureus -Currently on Cardizem drip, cardiology on consult -Dopamine drip to maintain MAP greater than 75, start Bumex therapy -[place]uster response to Bumex therapy, urine output 250 cc, hopefully she can tolerate dialysis tomorrow, monitor creatinine, monitor urine output, monitor electrolytes, continue dopamine with albumin -N.p.o. midnight, tunneled dialysis catheter to be placed by Dr. Virgen tomorrow, dialysis after monitor blood pressures, dopamine as needed -For now anticoagulation is contraindicated given hemoptysis, GI bleed, Hemoccult positive stools -Hemoglobin at 8.0, monitor -PT OT, speech therapy -Has protein calorie malnutrition, hypoalbuminemia, likely contributing to anasarca, will have this speech therapy and nutrition's to see patient -Severe deconditioning, muscle wasting, nurses to get up into a chair -SCDs for DVT prophylaxis not placed due to severe lower extremity pain, anticoagulation contraindicated given GI bleed, hemoptysis, patient understands the risks of not having her on anticoagulation and SCDs, risk of DVTs and PEs, voiced understanding, all questions answered, declined SCDs, anticoagulation contraindicated due to anemia, concerns for lower GI bleed, Hemoccult positive stools, bilateral lower extremity ultrasounds negative for DVT, continue to monitor -Full code, confirmed again with patient today -Patient is healthcare power of divorce attorney is her brother Nestor, information is in the chart -Overall she has a poor performance status -Prognosis is guarded Status: Acute (4) Paroxysmal A-fib: Cardiology on consult Status: Acute (5) Anemia: Continue to monitor, likely multifactorial from acute renal failure, Hemoccult positive stool slow GI bleed Status: Acute Qualifiers: Anemia type: due to chronic kidney disease Chronic kidney disease stage: stage 4 (severe) Qualified Code(s): N18.4 - Chronic kidney disease, stage 4 (severe); D63.1 - Anemia in chronic kidney disease (6) Hematochezia due to medication: Status: Acute (7) Acute kidney injury superimposed on chronic kidney disease: Status: Acute (8) CHF (congestive heart failure): Status: Chronic Qualifiers: Heart failure type: systolic Heart failure chronicity: acute on chronic Qualified Code(s): I50.23 - Acute on chronic systolic (congestive) heart failure (9) UTI (urinary tract infection): -MRSA UTI, with Escobar catheter in place, on Zyvox Status: Acute Qualifiers: Urinary tract infection type: site unspecified Hematuria presence: without hematuria Qualified Code(s): N39.0 - Urinary tract infection, site not specified (10) 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 -Pulmonary on consult -Discussed options including biopsy, chemo, surgery, hospice -Wants to pursue treatment, pursue biopsy if needed, pursue chemo -Follow thoracocentesis, for pathology -Pulmonary on consult Status: Acute (11) Bilateral pleural effusion: -Will undergo thoracocentesis, also for cytology Status: Acute (12) Anasarca: Status: Acute (13) Protein calorie malnutrition: Status: Acute (14) Physical deconditioning: Status: Acute (15) Hypoalbuminemia: Status: Acute Additional A&P Information Plan for today increase diuretic therapy, monitor blood pressures, monitor heart rates, await family and patient's decision for dialysis, possibly require dialysis in the next 24-48 hrs., Attestations Medical Necessity Statement*: Patient requires hospitalization, for acute respiratory failure, secondary to CHF, pneumonia, A. 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 Diagnoses Left renal mass N28.89 Right upper lobe pneumonia J18.9 Acute respiratory failure with hypoxia J96.01 Paroxysmal A-fib I48.0 Anemia N18.4; D63.1 Anemia type: due to chronic kidney disease Chronic kidney disease stage: stage 4 (severe) Hematochezia due to medication K92.1; T50.905A Acute kidney injury superimposed on chronic kidney disease N17.9; N18.9 CHF (congestive heart failure) I50.23 Heart failure type: systolic Heart failure chronicity: acute on chronic UTI (urinary tract infection) N39.0 Urinary tract infection type: site unspecified Hematuria presence: without hematuria 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 J98.4 Bilateral pleural effusion J90 Anasarca R60.1 Protein calorie malnutrition E46 Physical deconditioning R53.81 Hypoalbuminemia E88.09
--- NOTE | 2021-02-26 14:53 | DCPLANNER ---
Pg 2 of IM updated, copy sent in with Nursing since she is isolation for MRSA in her sputum.
[2021-02-26] MEDS: sevelamer 800 mg Tablet PO (17:23)
--- NOTE | 2021-02-26 17:42 | PC.NURSE ---
1030. family brought sausage bisquit in. pt. req. bisq. and gravy she had refused this am and she ate 1/2 bisq and gravy and 3/4 of sausage bisq.
[2021-02-26] MEDS: atorvastatin 40 mg Tablet PO (20:50)
[2021-02-27] VITALS (68 sets, daily range): BP systolic 81–139; BP diastolic 38–91; PULSE 63–154; RESP 9–31; TEMP 34.7–36.6; O2SAT 4–100
--- NOTE | 2021-02-27 | SCC_ITS ---
Procedure Done: 1. Placement of 16 Faroese 23 cm long AshSplit tunneled hemodialysis catheter right internal jugular vein 2. Fluoroscopic guidance and interpretation for placement of catheter 3. Placement of triple-lumen 7 Faroese left subclavian vein central line 27.9 seconds of fluoroscopic guidance, for a cumulative dose of 3.42 mGy, was provided to Dr. Virgen by the radiology department. C-arm images of the chest were saved for the patient's permanent record. MATEUSD
[2021-02-27] MEDS: linezolid premix 600 MG/300 ML PREMIX 300 MG IV ×2 (02:30→14:42)
[2021-02-27 03:26] LABS: Basophils % 0.3 %; Eosinophils # 0.1 10^3/uL (0.0-0.8); Eosinophils % 1.3 %; Hematocrit 25.6 % (37.0-47.0); Hemoglobin 7.7 g/dL (11.5-15.3); Lymphocytes % 12.7 %; Mean Corpuscular HGB Conc 30.1 g/dL (30.0-36.0); Mean Corpuscular Hemoglobin 27.8 pg (28.0-34.0); Mean Corpuscular Volume 92.4 fL (81-99); Monocytes # 0.5 10^3/uL (0.2-0.9); Monocytes % 6.4 %; Neutrophils # 6.25 10^3/uL (1.8-7.7); Neutrophils % 78.7 %; Nucleated Red Blood Cells % 0 %; Platelet Count 101 10^3/cmm (130-400); Red Blood Count 2.77 10^6/uL (4.1-5.3); Red Cell Distribution Width 18.7 % (12.1-15.1); White Blood Count 7.9 10^3/uL (4.0-10.0)
[2021-02-27 03:42] LABS: Lactate (Lactic Acid level) 1.2 mmol/L (0.5-2.2)
[2021-02-27 03:47] LABS: INR 1.47 (0.8-1.2)
[2021-02-27 03:56] LABS: NT Pro B Type Natriuretic Pept 12839 pg/mL (0-450); Procalcitonin 0.33 ng/mL (0-0.5)
[2021-02-27 04:08] LABS: Alanine Aminotransferase < 5 U/L (0-33); Albumin Level 3.2 g/dL (3.5-5.2); Alkaline Phosphatase 109 IU/L (35-105); Anion Gap 21.2 (5-19); Aspartate Amino Transferase 14 U/L (0-32); Blood Urea Nitrogen 71 mg/dL (8-23); C Reactive Protein 10.2 mg/L (0.0-4.9); Calcium 7.7 mg/dL (8.5-10.5); Carbon Dioxide 19 mmol/L (22-29); Chloride 93 mmol/L (98-107); Globulin 1.6 g/dL (1.3-4.6); Glucose 102 mg/dL (65-115); Magnesium 1.8 mg/dL (1.7-2.3); Osmolality Calculated 289 mOsm/kg (285-295); Phosphorus 6.4 mg/dL (2.5-4.5); Potassium 4.2 mmol/L (3.5-5.1); Sodium 129 mmol/L (136-145); Total Bilirubin 0.9 mg/dL (0.15-1.2); Total Protein 4.8 g/dL (6.6-8.7)
[2021-02-27 04:43] LABS: ABG PCO2 40.2 mmHg (35-45); ABG PH Result 7.32 (7.35-7.45); Arterial Blood Gas Hematocrit 25.4 % (37-47); Base Excess ABG -5.1 mmol/L (-2.0-2.0); Blood Gas Sample Type Arterial; HCO3 ABG 20.6 mmol/L (22-26); PO2 ABG 68.6 mmHg (80.0-100.0)
[2021-02-27 05:22] LABS: Blood Gas Operator Identificat JB; Blood Gas Sample Site Brachial, right; Oxygen Device NC
--- NOTE | 2021-02-27 06:57 | PM.PN ---
Subjective Subjective: Interval history: still oliguric. states she feels better. no orthopnea. +[place]. poor appetite. HR controlled on cardizem drip. Medications: Reviewed: Yes Medication Review Details: Current Medications Acetaminophen (Acetaminophen 325 Mg Tablet) 650 mg PO Q6H PRN PRN Reason: Mild/Mod Pain Or Temp >/= 101 Last Admin: 02/24/21 00:33 Dose: 650 mg Documented by: Albuterol/Ipratropium (Ipratropium-Albuterol 3 Ml Neb) 3 ml INHALATION QID.RESPIRATORY PRN PRN Reason: SHORTNESS OF BREATH Last Admin: 02/24/21 07:45 Dose: 3 ml Documented by: Aspirin (Aspirin 81 Mg Ec Tablet) 81 mg PO DAILY FOR[facility]LY [facility], [facility] Last Admin: 02/26/21 09:21 Dose: 81 mg Documented by: Atorvastatin Calcium (Atorvastatin 40 Mg Tablet) 40 mg PO BEDTIME@2000 FOR[facility], [facility]1983 Last Admin: 02/26/21 20:50 Dose: 40 mg Documented by: Bumetanide (Bumetanide 0.25 Mg/Ml Sdv 10 Ml) 2 mg IV TID FOR[facility], [facility]1983 Last Admin: 02/26/21 20:51 Dose: 2 mg Documented by: Calcium Carbonate (Calcium Carbonate 500 Mg Chew Tablet) 1,000 mg PO BID FOR[facility], [facility] Last Admin: 02/26/21 17:23 Dose: 1,000 mg Documented by: Imipenem/Cilastatin Sodium 250 (mg/ Sodium Chloride) 100 mls @ 200 mls/hr IV Q12H RITA; Protocol Last Infusion: 02/26/21 21:30 Dose: Infused Documented by: Linezolid (Zyvox Premix) 600 mg in 300 mls @ 300 mls/hr IV Q12H RITA; Protocol Last Infusion: 02/27/21 03:30 Dose: Infused Documented by: Albumin Human (Albumin) 25 gm in 100 mls @ 60 mls/hr IV DAILY [facility], [facility] Last Infusion: 02/26/21 10:30 Dose: Infused Documented by: Diltiazem HCl 125 mg/ Sodium (Chloride) 125 mls @ 0 mls/hr IV .Q0M [facility], [facility]; Protocol Last Admin: 02/26/21 18:33 Dose: 5 mg/hr, 5 mls/hr Documented by: Dopamine HCl/Dextrose (Intropin Drip) 400 mg in 250 mls @ 13.013 mls/hr IV PRN RITA; Protocol Lorazepam (Lorazepam 2 Mg/Ml Inj 1 Ml) 0.5 mg IVP Q6H PRN PRN Reason: ANXIETY Magnesium Oxide (Magnesium Oxide 400 Mg Tablet) 400 mg PO ONCE FOR[facility], [facility] Metoprolol Tartrate (Metoprolol Tartrate 1 Mg/1 Ml Sdv 5 Ml) 5 mg IV Q4H PRN PRN Reason: tachycardia Midodrine (Midodrine 5 Mg Tablet) 10 mg PO TID [facility] Last Admin: 02/24/21 08:32 Dose: 10 mg Documented by: Morphine Sulfate (Morphine 4 Mg/Ml Sdv 1 Ml) 1 mg IVP Q4H PRN PRN Reason: SEVERE PAIN Last Admin: 02/25/21 12:06 Dose: 1 mg Documented by: Naloxone HCl (Naloxone 0.4 Mg/Ml Sdv) 0.1 mg IVP Q2M PRN PRN Reason: OPIATERV Ondansetron HCl (Ondansetron 2 Mg/Ml Sdv 2 Ml) 4 mg IVP Q8H PRN PRN Reason: vomiting, or N/V if npo Last Admin: 02/25/21 09:38 Dose: 4 mg Documented by: Sevelamer Carbonate (Sevelamer 800 Mg Tablet) 800 mg PO DAILY@1700 [facility], [facility] Last Admin: 02/26/21 17:23 Dose: 800 mg Documented by: Sucralfate (Sucralfate 1 Gm Tablet) 1 gm PO BID@0800,2000 [facility], [facility] Last Admin: 02/26/21 20:51 Dose: 1 gm Documented by: Vitals/I&O/Wt Last Vital Signs Temp 97.8 F 02/27/21 04:00 Pulse 102 H 02/27/21 06:15 Resp 18 02/27/21 06:15 BP 102/56 02/27/21 06:15 Pulse Ox 92 02/27/21 06:15 02/26/21 02/26/21 02/27/21 14:59 22:59 06:59 Intake Total 560 / 560 645 / 1205 300 / 1505 Output Total 50 / 50 125 / 175 Balance 560 / 560 595 / 1155 175 / 1330 Weight last 48 hrs Weight 70.534 kg Weight 69.405 kg Physical Exam Narrative: EXAM NARRATIVE: elderly lady in bed NC02- comfortable vs noted heent- nc/at, eomi, anicteric neck supple lungs dull bases heart- irreg irreg, +Systolic murmur abd soft, nt, nd, +BS ext b/l edema skin red by ankle neuro- a,a, o x 2+ + bailey catheter Urinary Catheter Management^: Bailey: Cath Placed During This Visit: yes Reason for Continuing Indwelling Catheter: Accurate Measurement of Urinary Output in Critically Ill Patients Urinary Catheter Date of Insertion: 02/17/21 Urinary Catheter Time of Insertion: 14:30 Data : 02/27/21 02:38 02/27/21 02:38 Micro: Microbiology 02/25/21 11:30 Gram Stain - Final Pleural Fluid Anaerobic Culture - Preliminary Body Fluid Culture - Preliminary 02/24/21 03:44 Urine Culture - Final Urine Catheterized A&P Additional A&P Information 1. Renal Failure CKD with SHAQUILLE. likely hemodynamically mediated, CRS, pre-renal Given oliguria in response to diuretics in the setting of hypervolemia is an indication for dialysis. She discussed this with her family members, and they want a trial of dialysis - Dr. Virgen to place a dialysis line and HD today- fluid removal as tolerated- avoid hypotension Strict Is and Os Avoid nephrotoxins 2. Lung mass s/p thoracentesis; pathology pending indeterminate mass in kidney noted Mgmt per pulm 3. Pneumonia Combo Abx on board 4. anemia- from SHAQUILLE, lung mass 5. thrombocytopenia- plts down to 101 6. 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
--- NOTE | 2021-02-27 07:00 | XRR_ITS ---
PROCEDURE INFORMATION: Exam: XR Chest Exam date and time: 02/27/2021 12:00 AM Age: 85 years old Clinical indication: Shortness of breath; Prior surgery; Additional info: SOB TECHNIQUE: Imaging protocol: XR of the chest. Views: 1 view. COMPARISON: CR (CHEST, ) 02/26/2021 4:43 AM FINDINGS: Tubes, catheters and devices: Stable positioning of central venous catheter. Lungs: Interstitial prominence, chronic granulomatous disease, and asymmetric airspace disease. Pleural spaces: Asymmetric pleural effusions without obscuration of the left hemidiaphragm. Heart/Mediastinum: It cardiomegaly. Vasculature: Calcification of the thoracic aorta. Bones/joints: Degenerative change. When correlating with the previous study, no significant interval changes are present. XR/XR chest 1V portable [id number] IMPRESSION: Stable appearance of the chest, not significantly changed from 02/26/2021 .
--- NOTE | 2021-02-27 07:03 | ANES.PREANE2 ---
Pre-Anesthetic Assessment Pre-Anesthetic Assessment: Height/Weight: Height 1.57 m Weight 70.534 kg Temp Pulse Resp BP Pulse Ox 97.8 F 102 H 18 102/56 92 02/27/21 04:00 02/27/21 06:15 02/27/21 06:15 02/27/21 06:15 02/27/21 06:15 Proposed Procedure: Operation Date: 02/27/21 10:50 Proposed Procedures p Dialysis Catheter Insertion(Not Applicable) - Peter Virgen MD Pulmonary: Pulmonary: COPD Comments: Pulmonary HTN , MRSA pneumonia, pleural effusion, RUL mass CV/HEM: CV/HEM: Afib (w/ RVR), Anemia, CHF and [place] (STEMI) Comments: echo 01/19CONCLUSIONS 1-Normal left ventricular cavity size. Normal left ventricular systolic function. Left ventricular ejection fraction is estimated at 60 %. Echogenic mass observed in the left ventricle could be subvalvular calcified apparatus in these suboptimal images, further exploration with contrast echo or transesophageal echocardiogram performed if clinically indicated for suspicion of endocarditis or thromboembolic phenomena. Grade IV/IV diastolic dysfunction (irreversible restrictive filling pattern), severely elevated filling pressures. 2-Right ventricle not well visualized. Moderate pulmonary hypertension, RVSP 52.7 mmHg. 3-Valves were not well visualized due to suboptimal images. 4-There is no pericardial effusion. 5-When compared to the prior echocardiogram dated January 30, 2019 these images are of suboptimal quality however left ventricle ejection appear to be improved from moderately reduced 40% to normal 60% now. : : Chronic renal failure (w/SHAQUILLE - requiring dialysis) Comments: L renal mass GI: GI: GERD Metabolic: Metabolic: Hyperlipidemia Comments: metabolic acidosis, developing hyponatremia, fluid overload Anesthetic Plan: ASA status: 4 Anesthesia: MAC Risk of > 500 ml blood loss (7ml/kg in children): No Meds/Allergies Current Medications: Current Medications Generic Name Dose Route Start Last Admin Trade Name Freq PRN Reason Stop Dose Admin Acetaminophen 650 mg 02/17/21 14:53 02/24/21 00:33 Acetaminophen 32 5 Mg Tablet PO 650 mg Q6H PRN Administration Mild/Mod Pain Or Temp >/= 101 Albuterol/Ipratrop ium 3 ml 02/19/21 17:32 02/24/21 07:45 Ipratropium-Albu terol 3 Ml Neb INHALATION 3 ml QID.RESPIRATORY P RN Administration SHORTNESS OF DAISY TH Aspirin 81 mg 02/17/21 15:30 02/26/21 09:21 Aspirin 81 Mg Ec Tablet PO 81 mg DAILY RITA Administration Atorvastatin Calci um 40 mg 02/17/21 20:00 02/26/21 20:50 Atorvastatin 40 Mg Tablet PO 40 mg BEDTIME@2000 RITA Administration Bumetanide 2 mg 02/25/21 11:30 02/26/21 20:51 Bumetanide 0.25 Mg/Ml Sdv 10 Ml IV 2 mg TID RITA Administration Calcium Carbonate 1,000 mg 02/24/21 09:00 02/26/21 17:23 Calcium Carbonat e 500 Mg Chew Tabl et PO 1,000 mg BID RITA Administration Imipenem/Cilastati n Sodium 250 100 mls @ 200 mls /hr 02/18/21 09:00 02/26/21 21:30 mg/ Sodium Chlor taiwo IV Infused Q12H RITA Infusion Protocol Linezolid 600 mg in 300 mls @ 300 mls/hr 02/19/21 12:00 02/27/21 03:30 Zyvox Premix IV Infused Q12H RITA Infusion Protocol Albumin Human 25 gm in 100 mls @ 60 mls/hr 02/24/21 09:00 02/26/21 10:30 Albumin IV Infused DAILY RITA Infusion Diltiazem HCl 125 mg/ Sodium 125 mls @ 0 mls/h r 02/24/21 15:30 02/26/21 18:33 Chloride IV 5 mg/hr .Q0M RITA 5 mls/hr Administration Protocol Per Protocol Midodrine 10 mg 02/17/21 21:00 02/24/21 08:32 Midodrine 5 Mg T ablet PO 10 mg TID RITA Administration Morphine Sulfate 1 mg 02/24/21 12:02 02/25/21 12:06 Morphine 4 Mg/Ml Sdv 1 Ml IVP 1 mg Q4H PRN Administration SEVERE PAIN Ondansetron HCl 4 mg 02/17/21 14:53 02/25/21 09:38 Ondansetron 2 Mg /Ml Sdv 2 Ml IVP 4 mg Q8H PRN Administration vomiting, or N/V if npo Sevelamer Carbonat e 800 mg 02/17/21 17:00 02/26/21 17:23 Sevelamer 800 Mg Tablet PO 800 mg DAILY@1700 [facility] Administration Sucralfate 1 gm 02/17/21 20:00 02/26/21 20:51 Sucralfate 1 Gm Tablet PO 1 gm BID@0800,1999 [facility] Administration Additional Medication Information: Current Medications Acetaminophen (Acetaminophen 325 Mg Tablet) 650 mg PO Q6H PRN PRN Reason: Mild/Mod Pain Or Temp >/= 101 Last Admin: 02/24/21 00:33 Dose: 650 mg Documented by: Albuterol/Ipratropium (Ipratropium-Albuterol 3 Ml Neb) 3 ml INHALATION QID.RESPIRATORY PRN PRN Reason: SHORTNESS OF BREATH Last Admin: 02/24/21 07:45 Dose: 3 ml Documented by: Aspirin (Aspirin 81 Mg Ec Tablet) 81 mg PO DAILY [facility] Last Admin: 02/26/21 09:21 Dose: 81 mg Documented by: Atorvastatin Calcium (Atorvastatin 40 Mg Tablet) 40 mg PO BEDTIME@1999 [facility] Last Admin: 02/26/21 20:50 Dose: 40 mg Documented by: Bumetanide (Bumetanide 0.25 Mg/Ml Sdv 10 Ml) 2 mg IV TID [facility] Last Admin: 02/26/21 20:51 Dose: 2 mg Documented by: Calcium Carbonate (Calcium Carbonate 500 Mg Chew Tablet) 1,000 mg PO BID [facility] Last Admin: 02/26/21 17:23 Dose: 1,000 mg Documented by: Imipenem/Cilastatin Sodium 250 (mg/ Sodium Chloride) 100 mls @ 200 mls/hr IV Q12H [facility]; Protocol Last Infusion: 02/26/21 21:30 Dose: Infused Documented by: Linezolid (Zyvox Premix) 600 mg in 300 mls @ 300 mls/hr IV Q12H [facility]; Protocol Last Infusion: 02/27/21 03:30 Dose: Infused Documented by: Albumin Human (Albumin) 25 gm in 100 mls @ 60 mls/hr IV DAILY [facility] Last Infusion: 02/26/21 10:30 Dose: Infused Documented by: Diltiazem HCl 125 mg/ Sodium (Chloride) 125 mls @ 0 mls/hr IV .Q0M [facility]; Protocol Last Admin: 02/26/21 18:33 Dose: 5 mg/hr, 5 mls/hr Documented by: Dopamine HCl/Dextrose (Intropin Drip) 400 mg in 250 mls @ 13.013 mls/hr IV PRN RITA; Protocol Lorazepam (Lorazepam 2 Mg/Ml Inj 1 Ml) 0.5 mg IVP Q6H PRN PRN Reason: ANXIETY Magnesium Oxide (Magnesium Oxide 400 Mg Tablet) 400 mg PO ONCE RITA Metoprolol Tartrate (Metoprolol Tartrate 1 Mg/1 Ml Sdv 5 Ml) 5 mg IV Q4H PRN PRN Reason: tachycardia Midodrine (Midodrine 5 Mg Tablet) 10 mg PO TID [facility] Last Admin: 02/24/21 08:32 Dose: 10 mg Documented by: Morphine Sulfate (Morphine 4 Mg/Ml Sdv 1 Ml) 1 mg IVP Q4H PRN PRN Reason: SEVERE PAIN Last Admin: 02/25/21 12:06 Dose: 1 mg Documented by: Naloxone HCl (Naloxone 0.4 Mg/Ml Sdv) 0.1 mg IVP Q2M PRN PRN Reason: OPIATERV Ondansetron HCl (Ondansetron 2 Mg/Ml Sdv 2 Ml) 4 mg IVP Q8H PRN PRN Reason: vomiting, or N/V if npo Last Admin: 02/25/21 09:38 Dose: 4 mg Documented by: Sevelamer Carbonate (Sevelamer 800 Mg Tablet) 800 mg PO DAILY@1700 [facility] Last Admin: 02/26/21 17:23 Dose: 800 mg Documented by: Sucralfate (Sucralfate 1 Gm Tablet) 1 gm PO BID@0800,2000 [facility] Last Admin: 02/26/21 20:51 Dose: 1 gm Documented by: PFSH Anesthesia [facility]: Medical History (Updated 02/26/21 @ 13:23 by Long Quintero MD) LIZABETH inhibitor intolerance Anemia Aortic stenosis Mild Cardiomyopathy 35-40% CHF (congestive heart failure) Chronic kidney disease, stage 4 (severe) COPD (chronic obstructive pulmonary disease) Gout Hemoptysis Left renal mass Paroxysmal A-fib Pulmonary hypertension Surgical History History of cardiac catheterization History of cataract surgery Bilateral S/P bladder repair Bladder suspension S/P hysterectomy / BSO Family History Mother CAD (coronary artery disease) Myocardial infarction Father CAD (coronary artery disease) Social History Smoking and tobacco status: former smoker Quit status (tobacco): has quit using tobacco Year quit tobacco: 1999 Former quit date comment: [id number] history prior to quitting Alcohol intake: never Marital status: / Current occupational status: retired Data Anesthesia CBC & Chem 7: 02/27/21 02:38 02/27/21 02:38 Other Labs: Laboratory Results - last 48 hr 02/23/21 02/25/21 02/26/21 15:05 11:30 02:43 WBC RBC Hgb Hct MCV MCH MCHC RDW Plt Count MPV Neut % (Auto) Lymph % (Auto) [place] % (Auto) Eos % (Auto) Baso % (Auto) Neut # (Auto) Lymph # (Auto) [place] # (Auto) Eos # (Auto) Baso # (Auto) Nucleated RBC % (auto) Nucleated RBCs # Differential Comment Yes PT INR Specimen Type Sample Site ABG pH ABG pCO2 ABG pO2 ABG HCO3 ABG Base Excess Deven Test Hematocrit O2 Delivery Device O2 Liters/Min FiO2 Electric Furnace Operator ID Sodium 131 L Potassium 4.2 Chloride 95 L Carbon Dioxide 22 Anion Gap 18.2 BUN 71 H Creatinine 5.2 H GFR Calculation Not Reportable Glucose 95 Calculated Osmolality 293 Lactate Calcium 7.5 L Phosphorus 6.3 H Magnesium 1.9 Total Bilirubin 0.8 AST 13 ALT 6 Alkaline Phosphatase 102 C-Reactive Protein 14.6 H NT-Pro-B Natriuret Pep 78826 H Total Protein 4.6 L Albumin 1.8 L 3.1 L Globulin 1.5 Ugfvh-9-Qhfmntxki 0.5 H Dlwik-3-Xgweuzwru 0.5 Vdnl-5-Ykzfbuzk 0.2 L Mstn-3-Cecscgey 0.3 Gamma Globulins 1.3 Abnorm Protein Band 1 0.6 H Procalcitonin 0.41 U Abnormal Prot Band 2 Not Reportable U Abnormal Prot Band 3 Not Reportable Fluid Color Yellow Fluid Appearance Cloudy Fluid Specific Grav 1.010 Fluid pH 8.0 Fluid WBC 300 Fluid RBC 2.000 Fld Polynuclear WBCs # 0.155 Fld Polynuclear WBCs % 51.700 Fl Mononucl WBCs #(Auto) 0.145 Fl Mononuclear % Auto 48.300 Fluid Glucose 99.0 Fluid Albumin 0.6 Fluid LDH 64 Fluid Amylase 18 Fluid Alk Phosphatase 14 Fluid Cholesterol 6 Fluid Triglycerides 21 Fluid Uric Acid 11 Pleural Total Protein 1.0 Pro Electrophoresis Int See note 02/26/21 02/26/21 02/26/21 02:43 02:43 02:43 WBC 7.5 RBC 2.86 L Hgb 8.0 L Hct 26.2 L MCV 91.6 MCH 28.0 MCHC 30.5 RDW 18.7 H Plt Count 127 L MPV 9.3 Neut % (Auto) 78.6 Lymph % (Auto) 11.3 [place] % (Auto) 7.5 Eos % (Auto) 1.6 Baso % (Auto) 0.3 Neut # (Auto) 5.86 Lymph # (Auto) 0.8 [place] # (Auto) 0.6 Eos # (Auto) 0.1 Baso # (Auto) 0.0 Nucleated RBC % (auto) 0 Nucleated RBCs # 0.0 Differential Comment PT 18.40 H INR 1.50 H Specimen Type Sample Site ABG pH ABG pCO2 ABG pO2 ABG HCO3 ABG Base Excess Deven Test Hematocrit O2 Delivery Device O2 Liters/Min FiO2 Electric Furnace Operator ID Sodium Potassium Chloride Carbon Dioxide Anion Gap BUN Creatinine GFR Calculation Glucose Calculated Osmolality Lactate 1.0 Calcium Phosphorus Magnesium Total Bilirubin AST ALT Alkaline Phosphatase C-Reactive Protein NT-Pro-B Natriuret Pep Total Protein Albumin Globulin Gaarf-6-Zufabjane Vbajm-0-Xrqlmncal Ohej-7-Zftdsphw Oliu-6-Gsnpczby Gamma Globulins Abnorm Protein Band 1 Procalcitonin U Abnormal Prot Band 2 U Abnormal Prot Band 3 Fluid Color Fluid Appearance Fluid Specific Grav Fluid pH Fluid WBC Fluid RBC Fld Polynuclear WBCs # Fld Polynuclear WBCs % Fl Mononucl WBCs #(Auto) Fl Mononuclear % Auto Fluid Glucose Fluid Albumin Fluid LDH Fluid Amylase Fluid Alk Phosphatase Fluid Cholesterol Fluid Triglycerides Fluid Uric Acid Pleural Total Protein Pro Electrophoresis Int 02/26/21 02/27/21 02/27/21 05:00 02:38 02:38 WBC 7.9 RBC 2.77 L Hgb 7.7 L Hct 25.6 L MCV 92.4 MCH 27.8 L MCHC 30.1 RDW 18.7 H Plt Count 101 L MPV 10.0 Neut % (Auto) 78.7 Lymph % (Auto) 12.7 [place] % (Auto) 6.4 Eos % (Auto) 1.3 Baso % (Auto) 0.3 Neut # (Auto) 6.25 Lymph # (Auto) 1.0 [place] # (Auto) 0.5 Eos # (Auto) 0.1 Baso # (Auto) 0.0 Nucleated RBC % (auto) 0 Nucleated RBCs # 0.0 Differential Comment PT INR Specimen Type Arterial Sample Site Brachial, right ABG pH 7.30 L ABG pCO2 43.2 ABG pO2 65.4 L ABG HCO3 21.5 L ABG Base Excess -4.6 L Deven Test N/a Hematocrit 25.2 L O2 Delivery Device Nc O2 Liters/Min 3.0 FiO2 Electric Furnace Operator ID Hinja Sodium 129 L Potassium 4.2 Chloride 93 L Carbon Dioxide 19 L Anion Gap 21.2 H BUN 71 H Creatinine 4.9 H GFR Calculation Not Reportable Glucose 102 Calculated Osmolality 289 Lactate Calcium 7.7 L Phosphorus 6.4 H Magnesium 1.8 Total Bilirubin 0.9 AST 14 ALT < 5 Alkaline Phosphatase 109 H C-Reactive Protein 10.2 H NT-Pro-B Natriuret Pep 56501 H Total Protein 4.8 L Albumin 3.2 L Globulin 1.6 Lfriu-3-Jtovajkja Ckvfy-0-Msspquruf Tatx-6-Ouddxiia Zypk-9-Qvmgpbvl Gamma Globulins Abnorm Protein Band 1 Procalcitonin 0.33 U Abnormal Prot Band 2 U Abnormal Prot Band 3 Fluid Color Fluid Appearance Fluid Specific Grav Fluid pH Fluid WBC Fluid RBC Fld Polynuclear WBCs # Fld Polynuclear WBCs % Fl Mononucl WBCs #(Auto) Fl Mononuclear % Auto Fluid Glucose Fluid Albumin Fluid LDH Fluid Amylase Fluid Alk Phosphatase Fluid Cholesterol Fluid Triglycerides Fluid Uric Acid Pleural Total Protein Pro Electrophoresis Int 02/27/21 02/27/21 02/27/21 02:38 02:38 04:30 WBC RBC Hgb Hct MCV MCH MCHC RDW Plt Count MPV Neut % (Auto) Lymph % (Auto) [place] % (Auto) Eos % (Auto) Baso % (Auto) Neut # (Auto) Lymph # (Auto) [place] # (Auto) Eos # (Auto) Baso # (Auto) Nucleated RBC % (auto) Nucleated RBCs # Differential Comment PT 18.20 H INR 1.47 H Specimen Type Arterial Sample Site Brachial, right ABG pH 7.32 L ABG pCO2 40.2 ABG pO2 68.6 L ABG HCO3 20.6 L ABG Base Excess -5.1 L Deven Test N/a Hematocrit 25.4 L O2 Delivery Device Nc O2 Liters/Min 2.0 FiO2 28.0 Electric Furnace Operator ID Manolo Sodium Potassium Chloride Carbon Dioxide Anion Gap BUN Creatinine GFR Calculation Glucose Calculated Osmolality Lactate 1.2 Calcium Phosphorus Magnesium Total Bilirubin AST ALT Alkaline Phosphatase C-Reactive Protein NT-Pro-B Natriuret Pep Total Protein Albumin Globulin Kqzeo-0-Cdxtmnqzy Xwfdv-3-Zijfqdupe Choa-3-Vnkppqsh Yvsx-4-Wqmsilic Gamma Globulins Abnorm Protein Band 1 Procalcitonin U Abnormal Prot Band 2 U Abnormal Prot Band 3 Fluid Color Fluid Appearance Fluid Specific Grav Fluid pH Fluid WBC Fluid RBC Fld Polynuclear WBCs # Fld Polynuclear WBCs % Fl Mononucl WBCs #(Auto) Fl Mononuclear % Auto Fluid Glucose Fluid Albumin Fluid LDH Fluid Amylase Fluid Alk Phosphatase Fluid Cholesterol Fluid Triglycerides Fluid Uric Acid Pleural Total Protein Pro Electrophoresis Int Micro: Microbiology 02/25/21 11:30 Gram Stain - Final Pleural Fluid Anaerobic Culture - Preliminary Body Fluid Culture - Preliminary 02/24/21 03:44 Urine Culture - Final Urine Catheterized Cardiac Studies: Echocardiogram 01/07/21
--- NOTE | 2021-02-27 08:00 | PC.NURSE ---
Family members in to see pt. I got you something to eat and coffee Reminded pt and family she is to eat or drink nothing for now prior to procedure/surgery. Family verbalized understanding.
[2021-02-27] MEDS: docusate sodium 100 mg Capsule PO ×2 (09:10→18:47)
[2021-02-27] MEDS: dilTIAZem 60 mg Tablet PO ×3 (09:10→20:06)
[2021-02-27] MEDS: calcium carbonate 500 mg Chew Tablet 1000 MG PO ×2 (09:11→18:47)
[2021-02-27] MEDS: bumetanide 0.25 mg/mL SDV 10 mL 2 MG IV ×3 (09:11→20:06)
--- NOTE | 2021-02-27 09:32 | PC.NURSE ---
Morning PO meds admin with a slight amount of applesauce and water to drink. Aspirin and Miralax held until after Dialysis cath insert.
[2021-02-27 09:48] LABS: Hepatitis B Core AB, Total Non-Reactive (Nonreactive); Hepatitis B Surface AB 3.5 (11.5-1000); Hepatitis B Surface Antigen Non-Reactive (Nonreactive); Hepatitis C Virus Antibody Non-Reactive (Nonreactive)
--- NOTE | 2021-02-27 10:05 | PM.PN ---
Subjective Subjective: Interval history: Patient underwent HD today. Her blood pressure is soft. Off pressors at this time Vitals/I&O/Wt Last Vital Signs Temp 97.8 F 02/27/21 04:00 Pulse 109 H 02/27/21 09:00 Resp 16 02/27/21 09:00 BP 102/56 02/27/21 06:15 Pulse Ox 92 02/27/21 09:00 02/26/21 02/27/21 02/27/21 22:59 06:59 14:59 Intake Total 645 / 1205 300 / 1505 Output Total 50 / 50 125 / 175 Balance 595 / 1155 175 / 1330 Weight last 48 hrs Weight 155 lb 8 oz Weight 153 lb 0.2 oz Physical Exam Narrative: EXAM NARRATIVE: GENERAL: overweight elderly woman in no acute distress HEENT: Extraocular movement intact. No icterus. +pallor NECK: + JVD , No masses CARDIOVASCULAR SYSTEM: S1-S2 irregular. No S3 or S4 present. systolic murmur + RESPIRATORY SYSTEM: Decreased breath sounds at bases. + crakles. ABDOMEN: Soft, nontender and obese. Normal bowel sounds present. EXTREMITIES: No cyanosis. 1-2+ edema in legs. legs pretty tender to touch BILLBOARD ERECTOR HELPER: Patient is alert oriented ?3. No focal neurological deficits. SKIN: Normal turgor and temperature. Urinary Catheter Management^: Escobar: Cath Placed During This Visit: yes Reason for Continuing Indwelling Catheter: Accurate Measurement of Urinary Output in Critically Ill Patients Urinary Catheter Date of Insertion: 02/17/21 Urinary Catheter Time of Insertion: 14:30 Data : 02/28/21 05:13 02/28/21 05:13 Micro: Microbiology 02/25/21 11:30 Gram Stain - Final Pleural Fluid Anaerobic Culture - Preliminary Body Fluid Culture - Preliminary 02/24/21 03:44 Urine Culture - Final Urine Catheterized A&P Assessment and plan (1) CHF (congestive heart failure): RV failure with HFmrEF Last known LVEF=45%. -She is on bumex with albumin per nephrology. -Off pressors at this time -Underwent hemodialysis today. Will need more session based on nephrology recommendations Status: Chronic Qualifiers: Heart failure type: systolic Heart failure chronicity: acute on chronic Qualified Code(s): I50.23 - Acute on chronic systolic (congestive) heart failure (2) Acute kidney injury superimposed on chronic kidney disease: SHAQUILLE on CKD stage 4 Status: Acute (3) Atrial fibrillation with rapid ventricular response: Patient has been transitioned to PO cardizem. Continue, however will need to monitor blood pressure as was hypotensive earlier today Status: Acute (4) Elevated troponin: Status: Acute (5) Anemia: Status: Acute Qualifiers: Anemia type: due to chronic kidney disease Chronic kidney disease stage: stage 4 (severe) Qualified Code(s): N18.4 - Chronic kidney disease, stage 4 (severe); D63.1 - Anemia in chronic kidney disease Additional A&P Information Right upper lung spiculated mass with cavitation: concern for malignancy Right upper lung PNA: On antibiotics per primary team (Sputum + MRSA) MRSA UTI Left renal mass Anemia H/O UGIB Hyponatremia Hypomagnesmia : replaced NSVT on telemetry Moderate left and small right pleural effusion Small pericardial effusion on CT chest MIld Pulmonary HTN Thank you for allowing me to participate in patient's care. Please fell free to call with questions or concerns. Attestations Medical Necessity Statement*: Care expected to cross 2 midnights Coding Level of Care Code Acute Wax Coating Machine Tender for Anatg Fwd Diagnoses CHF (congestive heart failure) I50.23 Heart failure type: systolic Heart failure chronicity: acute on chronic Acute kidney injury superimposed on chronic kidney disease N17.9; N18.9 Atrial fibrillation with rapid ventricular response I48.91 Elevated troponin R77.8 Anemia N18.4; D63.1 Anemia type: due to chronic kidney disease Chronic kidney disease stage: stage 4 (severe)
--- NOTE | 2021-02-27 10:41 | SC_ITS ---
WS: [id number] INTRAOPERATIVE TECHNIQUE: 3 Spot fluoroscopic images for intraoperative purposes. FLUOROSCOPY TIME: 27.9 seconds CLINICAL INFORMATION: Placement of tunneled hemodialysis catheter and central line COMPARISON: None. FINDINGS: Dual lumen right central venous catheter with tips in the mid and distal SVC. No visualized pneumotho rax. SC/C-arm [place] for CVA [id number] IMPRESSION: Images obtained for intraoperative purposes.
--- NOTE | 2021-02-27 11:28 | PC.OT ---
OT tx attempted 914. Pt unavailable and prepping for surgical procedure. OT tx withheld today and will be attempted again tomorrow.
[2021-02-27] MEDS: lidocaine 2% INJ 20 mL INJECTION (11:43)
[2021-02-27] MEDS: heparin, porcine 1,000 unit/mL INJ 10 mL 6000 UNIT XX (11:44)
--- NOTE | 2021-02-27 11:55 | PM.OP ---
Operative Report Date of procedure: February 27, 2021 Pre-op Diagnosis: Acute kidney injury on top of chronic kidney disease, need for IV access Post-op diagnosis: same Procedure Done: 1. Placement of 16 Malagasy 23 cm long AshSplit tunneled hemodialysis catheter right internal jugular vein 2. Fluoroscopic guidance and interpretation for placement of catheter 3. Placement of triple-lumen 7 Malagasy left subclavian vein central line Implants: Right internal jugular vein hemodialysis tunneled catheter Left subclavian vein central line placement Surgeon: Peter Virgen Senior Industrial Engineer: Surgical lauri Jason Circulating nurse Laurence Anesthesia: MAC (Jarad Roth) Estimated blood loss (mL): 20 Condition: stable Disposition: ICU Brief History: Pleasant 85 years old female patient with acute kidney injury on top of chronic and requiring hemodialysis in addition to IV access Procedure: Patient was identified in the ICU and taken to the operative room and placed in supine position,both arms were tucked,Time-out was done verifying the patient's name/date of /planned procedure and destination after the procedure, all were in agreement.SCDs confirmed to be functioning, patient was already on therapeutic antibiotics administered per protocol, and beta kareen protocol was confirmed, appropriate positioning of the patient was done by me. Medications were reviewed to assess for anticoagulant usage. Risks and benefits and prevention of central line associated blood stream infection (CLABSI) were discussed with the patient/CPOA, and a consent was obtained. Monitors were in place and monitored throughout the procedure. All necessary supplies were available prior to start. Hand hygiene was completed prior to starting. Maximum barrier technique was utilized including a sterile gown, sterile gloves with a hat and mask. Site was was prepped with [chlorhexidine] and a full body drape was placed. 5 mL of 2% lidocaine was injected into the skin with a 25 gauge needle. Left subclavian vein triple-lumen central line Prep& drape was done under the usual sterile technique of the left upper chest and left side of the neck. lidocaine 2% was injected at the site of the stick, started by left subclavian vein stick, after couple of attempts I was able to retrieve venous blood and the wire was threaded without difficulty. Wire was then secured to the drapes with a hemostat and the needle was taken out the dilator that comes with the Kit was introduced onto the wire,the dilator was then taken out and a 7 Malagasy triple-lumen was introduced onto the wire was retrieved. The three ports were flushed and appropriate blood was retrieved first, Hep-Lock's were then applied The catheter was then secured onto the anterior chest wall with silk suture Patient tolerated the procedure well Count was correct at the end of the procedure All drapes were taken down and reprep and drape was done for placement of the tunneled hemodialysis catheter patient already had right internal jugular vein central line triple-lumen 7 Malagasy.That was included in the prepping and draping. Placement of 16 Malagasy 23 cm long AshSplit tunneled hemodialysis catheter right internal jugular vein Prep& drape was done under the usual sterile technique of right upper chest and right side of the neck lidocaine 2% was injected at the site of the stick, under fluoroscopy I confirmed the appropriate position of the left subclavian vein central line , following that a guidewire was introduced after flushing the right internal jugular vein central line obtain venous blood and so I was able to have the wire all the way to the IVC and at this point the triple-lumen was taken out. Attention was then deviated towards creation of an insert for the HD catheter at the right upper chest, were lidocaine 2% was injected using an 15 blade knife skin incision was created dissection using a hemostat to create an entrance and for the HD catheter to be inserted were it was connected to a tunneler, and the tunneler was used to accommodate the catheter of the HD catheter to be delivered through the incision first created at the site of the stick, an additional small alma was created with 11 blade knife to allow delivery of the tunneler outside, at that point under fluoroscopy,serial dilators were done that come in the in the KIT, followed by that a dilator with the sheath introduced onto the guidewire ,the dilator and the wire were retrieved and the catheter of the port was introduced via the sheath where it was peeled off and the catheter maintained,yet I was able to retrieve blood liberally, there was a small kink of the catheter and under fluoroscopy adjusting wire was introduced and the catheter was straightened appropriately. The whole procedure was done under fluoroscopy , the position maintained to be in the rt atrium that was confirmed with fluoroscopy, and the fluoroscopy interpretation was done by me throughout the entire procedure. Both hubs were flushed with heparin and they were flushing with ease The stick site was closed by 3-0 Vicryl deep subdermal interrupted sutures, followed by 4-0 Monocryl and Dermabond was used followed by dry dressing was applied.A 3/0 nylon was used to secure the hemodialysis catheter onto the anterior chest wall. Patient tolerated the procedure well was taken to the ICU Count was correct at the end of the procedure I was present for the whole entire procedure
[2021-02-27] MEDS: neomycin-poly-bacitracin oint 28 gm 1 APPLIC TOPICAL (11:56)
--- NOTE | 2021-02-27 12:07 | XRR_ITS ---
PROCEDURE INFORMATION: Exam: XR Chest Exam date and time: 02/27/2021 12:08 PM Age: 85 years old Clinical indication: Device placement; Other: Interval placement of right internal jugular vein; Prior surgery TECHNIQUE: Imaging protocol: XR of the chest. Views: 1 view. COMPARISON: CR (CHEST, ) 02/27/2021 7:24 AM FINDINGS: Tubes, catheters and devices: Bilateral central venous catheters terminate in the distal superior vena cava. Lungs: Interstitial prominence, chronic granulomatous disease, and bilateral airspace disease. The extent of right-sided airspace disease has markedly improved. Pleural spaces: Small left apical pneumothorax, along with dependent left pleural effusion. Heart/Mediastinum: Borderline cardiomegaly. Vasculature: Calcification of the thoracic aorta. Bones/joints: Degenerative change. XR/XR chest 1V portable 10036 IMPRESSION: 1. Bilateral central venous catheters terminate in the distal superior vena cava. 2. Small left apical pneumothorax, along with dependent left pleural effusion. 3. Interval improvement in right-sided airspace disease. The aforementioned findings initiated a critical results communication pathway. An addendum will be issued at the time of clincian notification.
--- NOTE | 2021-02-27 12:21 | ANE.PACU2 ---
Inpatient post-anesthesia follow up: Airway intact: Yes Vital signs: Temperature 97.5 F Pulse Rate [Monito r] 120 Pulse Rate 67 Respiratory Rate 14 Blood Pressure [Ri ght Arm] 110/58 Blood Pressure 110/56 Pulse Oximetry 99 Oxygen Delivery Me thod Nasal Cannula Oxygen Flow Rate 5 Fraction of Inspir ed Oxygen Hydration adequate: Yes Nausea and vomiting: No Pain level: 1 Mental status: Baseline
--- NOTE | 2021-02-27 12:30 | P.PN_ITS ---
Subjective Subjective: Interval history: Patient was examined this morning, family is at bedside, she tells me that she had a horrible night, she could not sleep, she did have cornbread with biscuits yesterday, she continues to be on 5 L, no shortness of breath complaints, no fevers, no chest pain, continues to have fatigue, generalized weakness, remains bedridden, has not had a bowel movement yet, is n.p.o. for her dialysis catheter placement, plans on dialysis thereafter Vitals/I&O/Wt Last Vital Signs Temp 97.5 F L 02/27/21 08:00 Pulse 67 02/27/21 11:57 Resp 14 02/27/21 10:00 BP 110/56 02/27/21 11:57 Pulse Ox 99 02/27/21 11:57 02/26/21 02/27/21 02/27/21 22:59 06:59 14:59 Intake Total 645 / 1205 300 / 1505 230 / 230 Output Total 50 / 50 125 / 175 Balance 595 / 1155 175 / 1330 230 / 230 Weight last 48 hrs Weight 70.534 kg Weight 69.405 kg Physical Exam Const: COMMON NORMALS: no acute distress GENERAL APPEARANCE: frail appearing ORIENTATION/CONSCIOUSNESS: Yes awake, Yes oriented to person and Yes oriented to place Resp: COMMON NORMALS: normal respiratory effort, No retractions and No use of accessory muscles AUSCULTATION: crackles Cardio: COMMON NORMALS: regular rate, S1 normal heart sound present and S2 normal heart sound present RATE: regular rate RHYTHM: abnormal rhythm HEART SOUNDS: S1 normal heart sound present and S2 normal heart sound present GI: COMMON NORMALS: Normal to inspection, nondistended, normoactive bowel sounds present and non-tender Extremity: NARRATIVE EXTREMITY EXAM: 3+ pitting edema, anasarca Neuro: SENSORIUM/ORIENTATION: Yes oriented to person and Yes oriented to place Urinary Catheter Management^: Escobar: Cath Placed During This Visit: yes Reason for Continuing Indwelling Catheter: Accurate Measurement of Urinary Output in Critically Ill Patients Urinary Catheter Date of Insertion: 02/17/21 Urinary Catheter Time of Insertion: 14:30 Data : 02/27/21 02:38 02/27/21 02:38 Micro: Microbiology 02/25/21 11:30 Gram Stain - Final Pleural Fluid Anaerobic Culture - Preliminary Body Fluid Culture - Preliminary 02/24/21 03:44 Urine Culture - Final Urine Catheterized A&P Assessment and plan (1) Left renal mass: -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 fib with RVR, cavitary lung mass, bilateral pleural effusions -Echocardiogram from January 06, 2021 shows ejection fraction of 45%, global hypokinesis, grade 4 out of 4 diastolic dysfunction, severely elevated filling pressures, moderate pulmonary hypertension, right ventricular systolic pressure 52.7 mmHg - anterior segment right upper lobe spiculated mass with evidence of early cavitation dimensions approximately 37 mm x 25 mm x 34 mm. Concern for primary lung carcinoma. Moderate left pleural and small right pleural effusion -Status post thoracocentesis, 1200 mL drained on the left, seems transudative, pathology pending, Gram stain no organisms, moderate white blood cells -Repeat chest x-ray shows improved left pleural effusion, enlargement of right pleural effusion -has anasarca, 3+ pitting edema, worsening pulmonary edema on chest xray, crackles on exam on 5 L Plan: -Continue to monitor in ICU -On Primaxin, Zyvox, monitor respiratory status closely, DuoNeb, oxygen therapy, flutter valve, incentive spirometer, -Follow blood cultures, sputum cultures, urine bacterial antigens, MRSA in sputum culture, urine culture positive for staph aureus -Currently on Cardizem drip, transition to PO cardeizem, cardiology on consult -Dopamine drip to maintain MAP greater than 75 -[place] response to Bumex therapy, urine output 200 cc, hopefully she can tolerate dialysis today, monitor creatinine, monitor urine output, monitor electrolytes, continue dopamine with albumin - tunneled dialysis catheter to be placed by Dr. Promise brar, dialysis after monitor blood pressures, dopamine as needed -For now anticoagulation is contraindicated given hemoptysis, GI bleed, Hemoccult positive stools -Hemoglobin at 8.7, monitor -PH7.32, will receive dialysis -Na 129, will receive dialysis -PT OT, speech therapy -Has protein calorie malnutrition, hypoalbuminemia, likely contributing to an asarca, will have this speech therapy and nutrition's to see patient -Severe deconditioning, muscle wasting, nurses to get up into a chair -SCDs for DVT prophylaxis not placed due to severe lower extremity pain, anticoagulation contraindicated given GI bleed, hemoptysis, patient understands the risks of not having her on anticoagulation and SCDs, risk of DVTs and PEs, voiced understanding, all questions answered, declined SCDs, anticoagulation contraindicated due to anemia, concerns for lower GI bleed, Hemoccult positive stools, bilateral lower extremity ultrasounds negative for DVT, continue to monitor -Full code -Patient is healthcare power of consumer attorney is her brother Nestor, information is in the chart -Overall she has a poor performance status -Prognosis is guarded plan for today coutinue with antibitoics, repositioning, pt ot, dialsysi Status: Acute (4) Paroxysmal A-fib: Cardiology on consult Status: Acute (5) Anemia: Continue to monitor, likely multifactorial from acute renal failure, Hemoccult positive stool slow GI bleed Status: Acute Qualifiers: Anemia type: due to chronic kidney disease Chronic kidney disease stage: stage 4 (severe) Qualified Code(s): N18.4 - Chronic kidney disease, stage 4 (severe); D63.1 - Anemia in chronic kidney disease (6) Hematochezia due to medication: Status: Acute (7) Acute kidney injury superimposed on chronic kidney disease: Status: Acute (8) CHF (congestive heart failure): Status: Chronic Qualifiers: Heart failure type: systolic Heart failure chronicity: acute on chronic Qualified Code(s): I50.23 - Acute on chronic systolic (congestive) heart failure (9) UTI (urinary tract infection): -MRSA UTI, with Escobar catheter in place, on Zyvox Status: Acute Qualifiers: Urinary tract infection type: site unspecified Hematuria presence: without hematuria Qualified Code(s): N39.0 - Urinary tract infection, site not specified (10) 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 -Pulmonary on consult -Discussed options including biopsy, chemo, surgery, hospice -Wants to pursue treatment, pursue biopsy if needed, pursue chemo -Follow thoracocentesis, for pathology -Pulmonary on consult Status: Acute (11) Bilateral pleural effusion: -Will undergo thoracocentesis, also for cytology Status: Acute (12) Anasarca: Status: Acute (13) Protein calorie malnutrition: Status: Acute (14) Physical deconditioning: Status: Acute (15) Hypoalbuminemia: Status: Acute Additional A&P Information Plan for today increase diuretic therapy, monitor blood pressures, monitor heart rates, await family and patient's decision for dialysis, possibly require dialysis in the next 24-48 hrs., Attestations Medical Necessity Statement*: patient requires hospitlization for fluid overload requiring dialysis, icu level care 55min Coding Level of Care Code Acute [employer] Specialist for Chg Fwd Diagnoses Left renal mass N28.89 Right upper lobe pneumonia J18.9 Acute respiratory failure with hypoxia J96.01 Paroxysmal A-fib I48.0 Anemia N18.4; D63.1 Anemia type: due to chronic kidney disease Chronic kidney disease stage: stage 4 (severe) Hematochezia due to medication K92.1; T50.905A Acute kidney injury superimposed on chronic kidney disease N17.9; N18.9 CHF (congestive heart failure) I50.23 Heart failure type: systolic Heart failure chronicity: acute on chronic UTI (urinary tract infection) N39.0 Urinary tract infection type: site unspecified Hematuria presence: without hematuria 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 J98.4 Bilateral pleural effusion J90 Anasarca R60.1 Protein calorie malnutrition E46 Physical deconditioning R53.81 Hypoalbuminemia E88.09
[2021-02-27 12:47] LABS: ANCA Interp Negative (Negative)
--- NOTE | 2021-02-27 13:51 | ANE.PACU2 ---
Inpatient post-anesthesia follow up: Airway intact: Yes Vital signs: Temperature 97.5 F Pulse Rate [Monito r] 120 Pulse Rate 67 Respiratory Rate 14 Blood Pressure [Ri ght Arm] 110/58 Blood Pressure 110/56 Pulse Oximetry 99 Oxygen Delivery Me thod Nasal Cannula Oxygen Flow Rate 5 Fraction of Inspir ed Oxygen Hydration adequate: Yes Nausea and vomiting: No Pain level: 3 Mental status: Baseline
--- NOTE | 2021-02-27 14:00 | PC.NURSE ---
HD site, Left CVL site and previous CVL site on right neck are oozy. Dressings soaked. Dressing changed provided using sterile technique. Chloraprep swabs used at sites. HD in progress.
[2021-02-27] MEDS: DOPamine drip 400 MG/250 ML PREMIX 13 MG IV (14:06)
[2021-02-27] MEDS: midodrine 5 mg TABLET 10 MG PO ×2 (14:43→20:07)
[2021-02-27] MEDS: heparin, porcine 1,000 unit/mL INJ 10 mL 10000 UNIT HE (14:45)
--- NOTE | 2021-02-27 15:00 | PC.NURSE ---
Discussed with Dr Qiuntero , Miralax and Aspirin held prior to HD insertion. Pt very drowsy at this time. Dr Quintero ok'd not giving today's doses.
--- NOTE | 2021-02-27 16:13 | XRR_ITS ---
PROCEDURE INFORMATION: Exam: XR Chest Exam date and time: 02/27/2021 4:14 PM Age: 85 years old Clinical indication: Other: Follow up on left apical pneuomthorax; Prior surgery TECHNIQUE: Imaging protocol: XR of the chest. Views: 1 view. Total images: 1 COMPARISON: CR (CHEST, ) 02/27/2021 12:28 PM FINDINGS: Tubes, catheters and devices: RIGHT-SIDED INDWELLING DOUBLE-LUMEN DIALYSIS CATHETER REMAINS UNCHANGED. LEFT SUBCLAVIAN CENTRAL VENOUS CATHETER REMAINS UNCHANGED TIP ATRIAL CAVAL JUNCTION. EKG LEADS. Lungs: INTERVAL DEVELOPMENT OF BILATERAL RETICULONODULAR INTERSTITIAL LUNG DISEASE, RIGHT LUNG MORE INVOLVED THAN LEFT, OF SUSPECTED LOW-GRADE INTERSTITIAL EDEMA. Pleural spaces: SUSPECTED BILATERAL SMALL VOLUME PLEURAL EFFUSIONS, LEFT GREATER RIGHT. NO VISIBLE PNEUMOTHORAX. Heart/Mediastinum: CARDIAC STRUCTURES AND CONFIGURATION WITH ARTERIOSCLEROSIS. Bones/joints: Unremarkable. XR/XR chest 1V portable 38016 IMPRESSION: 1. FINDINGS SUGGESTING INTERVAL DEVELOPMENT OF MILD INTERSTITIAL EDEMA. 2. SUSPECTED BILATERAL SMALL VOLUME PLEURAL EFFUSIONS. 3. NO VISIBLE PNEUMOTHORAX.
--- NOTE | 2021-02-27 16:30 | PC.NURSE ---
HD site and Left CVL dressings soaked again. Surgicell applied around sites and previous right CVL site. Gauze and bioclusive dressings applied. Chloraprep swabs used to clean. Sterile technique observed during.
--- NOTE | 2021-02-27 18:30 | PC.NURSE ---
Hd cath site dressing soaked. Reinforced area. Applied foam tape for additional pressure.
--- NOTE | 2021-02-27 19:35 | PC.NURSE ---
Addendum entered by Yoly Fierro RN 02/28/21 19:08: CVL and HD sites oozy this shift requiring a couple dressing changes including Surgicell being applied. Original Note: Shift summary: Pt went to OR for HD cath and CVL placement changed to left. Right CVL removed. She has been drowsy most of the day. She has barely eaten anything due t being NPO, drowsy and picky. HDdone, she tolerated 950ml removed. She required Dopamine to be started and Cardizem gtt increased to tolerated HD that much. Her skin is fragile,edematous and multiple large areas of bruising noted. Her bottom was macerated, Bathing and repositioning provided to help relieve it. She does not like to be repositioned as it hurts her to be moved. She did wiggle her feet and move her arms up and down to exercise per PT suggestion for building strength. Dark urine of 150ml output this shift.
[2021-02-27] MEDS: sucralfate 1 gm Tablet PO (20:06)
[2021-02-27] MEDS: atorvastatin 40 mg Tablet PO (20:06)
[2021-02-28] VITALS (68 sets, daily range): BP systolic 65–133; BP diastolic 39–97; PULSE 62–125; RESP 9–37; TEMP 35–35.8; O2SAT 85–97
[2021-02-28] MEDS: dilTIAZem 60 mg Tablet PO (02:35)
[2021-02-28] MEDS: linezolid premix 600 MG/300 ML PREMIX 300 MG IV (02:35)
--- NOTE | 2021-02-28 02:42 | PC.NURSE ---
Moderate bloody drainage to R chest HD cath site, dressing changed/reinforced, AO x4, follows commands, no C/O at this time, call light within reach
[2021-02-28 05:17] LABS: ABG PCO2 37.5 mmHg (35-45); ABG PH Result 7.41 (7.35-7.45); Arterial Blood Gas Hematocrit 23.4 % (37-47); Base Excess ABG -1.1 mmol/L (-2.0-2.0); Blood Gas Allen Test Pos; Blood Gas Operator Identificat JB; Blood Gas Sample Site Radial, right; Blood Gas Sample Type Arterial; HCO3 ABG 23.5 mmol/L (22-26); PO2 ABG 75.1 mmHg (80.0-100.0)
[2021-02-28 06:13] LABS: Basophils % 0.3 %; Eosinophils # 0.1 10^3/uL (0.0-0.8); Eosinophils % 0.4 %; Hematocrit 21.4 % (37.0-47.0); Hemoglobin 6.7 g/dL (11.5-15.3); Lymphocytes # 1.4 10^3/uL (0.8-4.8); Lymphocytes % 11.9 %; Mean Corpuscular HGB Conc 31.3 g/dL (30.0-36.0); Mean Corpuscular Hemoglobin 28.2 pg (28.0-34.0); Mean Corpuscular Volume 89.9 fL (81-99); Mean Platelet Volume 10.6 fL (7.4-10.4); Monocytes # 0.8 10^3/uL (0.2-0.9); Monocytes % 6.7 %; Neutrophils # 9.15 10^3/uL (1.8-7.7); Neutrophils % 80.2 %; Nucleated Red Blood Cells % 0.2 %; Platelet Count 76 10^3/cmm (130-400); Red Blood Count 2.38 10^6/uL (4.1-5.3); Red Cell Distribution Width 18.4 % (12.1-15.1); White Blood Count 11.4 10^3/uL (4.0-10.0)
[2021-02-28 06:21] LABS: INR 1.65 (0.8-1.2)
[2021-02-28 06:27] LABS: Lactate (Lactic Acid level) 2.3 mmol/L (0.5-2.2)
[2021-02-28 06:38] LABS: Oxygen Device NC
[2021-02-28 06:39] LABS: NT Pro B Type Natriuretic Pept 10074 pg/mL (0-450); Procalcitonin 0.55 ng/mL (0-0.5)
--- NOTE | 2021-02-28 06:49 | PC.NURSE ---
uneventful night other than requiring 2 dressing changes to R chest HD site, bleeding has slowed after surgacil and sand bag applied, AO x3, no c/o at this time supine 45 degrees call light within reach
[2021-02-28 06:50] LABS: Alanine Aminotransferase < 5 U/L (0-33); Albumin Level 3.3 g/dL (3.5-5.2); Alkaline Phosphatase 109 IU/L (35-105); Aspartate Amino Transferase 18 U/L (0-32); Blood Urea Nitrogen 51 mg/dL (8-23); C Reactive Protein 10.3 mg/L (0.0-4.9); Calcium 8.1 mg/dL (8.5-10.5); Carbon Dioxide 21 mmol/L (22-29); Chloride 90 mmol/L (98-107); Globulin 1.6 g/dL (1.3-4.6); Glucose 119 mg/dL (65-115); Magnesium 1.8 mg/dL (1.7-2.3); Osmolality Calculated 271 mOsm/kg (285-295); Phosphorus 4.9 mg/dL (2.5-4.5); Sodium 123 mmol/L (136-145); Total Bilirubin 1.3 mg/dL (0.15-1.2); Total Protein 4.9 g/dL (6.6-8.7)
--- NOTE | 2021-02-28 07:00 | XRR_ITS ---
PROCEDURE INFORMATION: Exam: XR Chest Exam date and time: 02/28/2021 6:30 AM Age: 85 years old Clinical indication: Dyspnea; Additional info: SOB TECHNIQUE: Imaging protocol: XR of the chest. Views: 1 view. COMPARISON: CR (CHEST, ) 02/27/2021 4:33 PM FINDINGS: Tubes, catheters and devices: Dialysis catheter is placed via the right internal jugular vein with its tip at the level of the superior vena cava. A central venous line is placed via the left subclavian vein with its tip at the level of the superior vena cava as well. Lungs: There is improved aeration in the right hemithorax compared with yesterday's examination. There are some patchy ground-glass opacities present in the right upper hemithorax, right lung base and left mid hemithorax suggesting improvement in volume status with some residual pulmonary edema present. Pleural spaces: The left hemidiaphragm is obscured likely secondary to a left pleural effusion. Heart/Mediastinum: Unremarkable. No cardiomegaly. Bones/joints: Unremarkable. XR/XR chest 1V portable [id number] IMPRESSION: 1. Improving volume status with some residual pulmonary edema seen. 2. Stable left pleural effusion
--- NOTE | 2021-02-28 07:58 | PM.PN ---
Subjective Subjective: Interval history: not feeling well. bleed from dialysis catheetr and large ecchymosis on neck and shoulder area Medications: Reviewed: Yes Medication Review Details: Current Medications Acetaminophen (Acetaminophen 325 Mg Tablet) 650 mg PO Q6H PRN PRN Reason: Mild/Mod Pain Or Temp >/= 101 Last Admin: 02/24/21 00:33 Dose: 650 mg Documented by: Albuterol/Ipratropium (Ipratropium-Albuterol 3 Ml Neb) 3 ml INHALATION QID.RESPIRATORY PRN PRN Reason: SHORTNESS OF BREATH Last Admin: 02/24/21 07:45 Dose: 3 ml Documented by: Aspirin (Aspirin 81 Mg Ec Tablet) 81 mg PO DAILY [facility] Last Admin: 02/27/21 14:53 Dose: Not Given Documented by: Atorvastatin Calcium (Atorvastatin 40 Mg Tablet) 40 mg PO BEDTIME@1999 [facility] Last Admin: 02/27/21 20:06 Dose: 40 mg Documented by: Bumetanide (Bumetanide 0.25 Mg/Ml Sdv 10 Ml) 2 mg IV TID [facility] Last Admin: 02/27/21 20:06 Dose: 2 mg Documented by: Calcium Carbonate (Calcium Carbonate 500 Mg Chew Tablet) 1,000 mg PO BID [facility] Last Admin: 02/27/21 18:47 Dose: 1,000 mg Documented by: Diltiazem HCl (Diltiazem 60 Mg Tablet) 60 mg PO Q6H [facility] Last Admin: 02/28/21 02:35 Dose: 60 mg Documented by: Docusate Sodium (Docusate Sodium 100 Mg Capsule) 100 mg PO BID [facility] Last Admin: 02/27/21 18:47 Dose: 100 mg Documented by: Imipenem/Cilastatin Sodium 250 (mg/ Sodium Chloride) 100 mls @ 200 mls/hr IV Q12H [facility]; Protocol Last Infusion: 02/28/21 06:59 Dose: Infused Documented by: Linezolid (Zyvox Premix) 600 mg in 300 mls @ 300 mls/hr IV Q12H [facility]; Protocol Last Infusion: 02/28/21 06:59 Dose: Infused Documented by: Albumin Human (Albumin) 25 gm in 100 mls @ 60 mls/hr IV DAILY [facility] Last Infusion: 02/27/21 11:05 Dose: Infused Documented by: Diltiazem HCl 125 mg/ Sodium (Chloride) 125 mls @ 0 mls/hr IV .Q0M [facility]; Protocol Last Titration: 02/28/21 04:30 Dose: 5 mg/hr, 5 mls/hr Documented by: Dopamine HCl/Dextrose (Intropin Drip) 400 mg in 250 mls @ 13.013 mls/hr IV PRN [facility]; Protocol Last Titration: 02/27/21 16:30 Dose: 3 mcg/kg/min, 7.8 mls/hr Documented by: Desmopressin Acetate 20 mcg/ (Sodium Chloride) 55 mls @ 110 mls/hr IV ONCE ONE Stop: 02/28/21 07:59 Lactulose (Lactulose Oral Liq 20 Gm/30 Ml Udc) 20 gm PO Q12H PRN PRN Reason: consitpation Lorazepam (Lorazepam 2 Mg/Ml Inj 1 Ml) 0.5 mg IVP Q6H PRN PRN Reason: ANXIETY Magnesium Oxide (Magnesium Oxide 400 Mg Tablet) 400 mg PO ONCE RITA Metoprolol Tartrate (Metoprolol Tartrate 1 Mg/1 Ml Sdv 5 Ml) 5 mg IV Q4H PRN PRN Reason: tachycardia Midodrine (Midodrine 5 Mg Tablet) 10 mg PO TID [facility] Last Admin: 02/27/21 20:07 Dose: 10 mg Documented by: Morphine Sulfate (Morphine 4 Mg/Ml Sdv 1 Ml) 1 mg IVP Q4H PRN PRN Reason: SEVERE PAIN Last Admin: 02/25/21 12:06 Dose: 1 mg Documented by: Naloxone HCl (Naloxone 0.4 Mg/Ml Sdv) 0.1 mg IVP Q2M PRN PRN Reason: OPIATERV Ondansetron HCl (Ondansetron 2 Mg/Ml Sdv 2 Ml) 4 mg IVP Q8H PRN PRN Reason: vomiting, or N/V if npo Last Admin: 02/25/21 09:38 Dose: 4 mg Documented by: Polyethylene Glycol (Polyethylene Glycol 3350 Pkt 17 Gm) 17 gm PO DAILY [facility] Last Admin: 02/27/21 14:53 Dose: Not Given Documented by: Sevelamer Carbonate (Sevelamer 800 Mg Tablet) 800 mg PO DAILY@1700 [facility] Last Admin: 02/27/21 18:43 Dose: Not Given Documented by: Sucralfate (Sucralfate 1 Gm Tablet) 1 gm PO BID@08,1999 [facility] Last Admin: 02/27/21 20:06 Dose: 1 gm Documented by: Vitals/I&O/Wt Last Vital Signs Temp 94.5 F L 02/27/21 15:45 Pulse 107 H 02/28/21 06:00 Resp 13 02/28/21 06:00 BP 121/86 02/28/21 06:00 Pulse Ox 91 02/28/21 06:00 02/27/21 02/28/21 02/28/21 22:59 06:59 14:59 Intake Total 395.984 / 882.734 452.250 / 1334.984 Output Total 150 / 175 50 / 225 Balance 245.984 / 707.734 402.250 / 1109.984 Weight last 48 hrs Weight 70.307 kg Weight 70.534 kg Physical Exam Narrative: EXAM NARRATIVE: elderly lady in bed NC02- uncomfortable vs noted - a fib w/ HR 110-120 heent- nc/at, eomi, anicteric neck supple lungs dull bases and crackles heart- irreg irreg, +Systolic murmur abd soft, nt, nd, +BS ext b/l edema skin red by ankle large ecchymosis by Rt ACW tuneled catheter neuro- a,a, o x 2+ + bailey catheter Urinary Catheter Management^: Bailey: Cath Placed During This Visit: yes Reason for Continuing Indwelling Catheter: Accurate Measurement of Urinary Output in Critically Ill Patients Urinary Catheter Date of Insertion: 02/17/21 Urinary Catheter Time of Insertion: 14:30 Data : 02/28/21 05:13 02/28/21 05:13 Micro: Microbiology 02/25/21 11:30 Gram Stain - Final Pleural Fluid Anaerobic Culture - Preliminary Body Fluid Culture - Preliminary A&P Additional A&P Information 1. Renal Failure CKD with SHAQUILLE. likely hemodynamically mediated, CRS, pre-renal Given oliguria in response to diuretics in the setting of hypervolemia is an indication for dialysis. She discussed this with her family members, and they want a trial of dialysis - Dr. Promise carrillo a dialysis line and HD initiated yesterday - fluid removal limited by hypotension -repeat HD today - suf 2.5 hrs, remove 1.5 l as tolerated, QB 250 Strict Is and Os Avoid nephrotoxins 1b. a fib w/ rvr- cardizem. Q dig, Q amiodarone = Q d/c dopamine 2. Lung mass s/p thoracentesis; pathology pending indeterminate mass in kidney noted Mgmt per pulm 3. Pneumonia Combo Abx on board 4. anemia- from SHAQUILLE, lung mass, and bleed s/p dialysis catheter- give blood w/ hd 5. thrombocytopenia- plts down to 76- give ddavp as bleeding -check hit ab - q if from bleeding 6. acid/ base status- in balance 7, hyponatremia- likely from volume overload and SHAQUILLE - monitor w/ dialysis 8. leukocytosis 9. lactic acidosis from hypotension and anemia 10. phos improved -vit d levels pending Patient seen and examined via telemedicine, with the assistance of the bedside RN > 25 min spent in evaluation and mgmt of patient Attestations Medical Necessity Statement*: a fib, chf, SHAQUILLE, anemia Time Spent in Patient Care: 16 - 35 minutes Coding Level of Care Code Acute Automation Qa Lead for Gaby Curry
[2021-02-28] MEDS: docusate sodium 100 mg Capsule PO ×2 (08:55→17:44)
[2021-02-28] MEDS: sucralfate 1 gm Tablet PO ×2 (08:55→20:06)
[2021-02-28] MEDS: dilTIAZem 60 mg Tablet 90 MG PO ×3 (08:55→20:06)
[2021-02-28] MEDS: midodrine 5 mg TABLET 10 MG PO ×3 (08:55→20:06)
[2021-02-28] MEDS: aspirin 81 mg EC Tablet PO (08:55)
[2021-02-28] MEDS: bumetanide 0.25 mg/mL SDV 10 mL 2 MG IV ×3 (08:56→20:08)
[2021-02-28] MEDS: polyethylene glycol 3350 Pkt 17 gm PO (08:56)
[2021-02-28] MEDS: calcium carbonate 500 mg Chew Tablet 1000 MG PO ×2 (08:56→17:44)
--- NOTE | 2021-02-28 10:10 | P.PN_ITS ---
Subjective Subjective: Interval history: Patient has been nauseous. Breathing is better. Hgb is 6.7. Vitals/I&O/Wt Last Vital Signs Temp 94.5 F L 02/27/21 15:45 Pulse 106 H 02/28/21 08:32 Resp 14 02/28/21 08:32 BP 121/86 02/28/21 06:00 Pulse Ox 92 02/28/21 08:32 02/27/21 02/28/21 02/28/21 22:59 06:59 14:59 Intake Total 395.984 / 882.734 452.250 / 1334.984 Output Total 150 / 175 50 / 225 Balance 245.984 / 707.734 402.250 / 1109.984 Weight last 48 hrs Weight 155 lb Weight 155 lb 8 oz Physical Exam Narrative: EXAM NARRATIVE: GENERAL: overweight elderly woman in no acute distress HEENT: Extraocular movement intact. No icterus. +pallor NECK: + JVD , No masses CARDIOVASCULAR SYSTEM: S1-S2 irregular. No S3 or S4 present. systolic murmur + RESPIRATORY SYSTEM: Decreased breath sounds at bases. + crakles. ABDOMEN: Soft, nontender and obese. Normal bowel sounds present. EXTREMITIES: No cyanosis. 1-2+ edema in legs. legs pretty tender to touch RECYCLABLE MATERIALS SORTER: Patient is alert oriented ?3. No focal neurological deficits. SKIN: Normal turgor and temperature. 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 -She is on bumex with albumin per nephrology. -Off pressors at this time -Underwent hemodialysis yesterday. Will need more sessions based on nephrology recommendations Status: Chronic Qualifiers: Heart failure chronicity: acute on chronic Heart failure type: systolic Qualified Code(s): I50.23 - Acute on chronic systolic (congestive) heart failure (2) Acute kidney injury superimposed on chronic kidney disease: SHAQUILLE on CKD stage 4 Status: Acute (3) Atrial fibrillation with rapid ventricular response: Patient has been transitioned to PO cardizem. Continue, however will need to monitor blood pressure as was hypotensive. Heart rates are controlled. Status: Acute (4) Elevated troponin: Status: Acute (5) Anemia: Hgb dropped significantly. Will need blood transfusion Status: Acute Qualifiers: Anemia type: due to chronic kidney disease Chronic kidney disease stage: stage 4 (severe) Qualified Code(s): N18.4 - Chronic kidney disease, stage 4 (severe); D63.1 - Anemia in chronic kidney disease Additional A&P Information Right upper lung spiculated mass with cavitation: concern for malignancy Right upper lung PNA: On antibiotics per primary team (Sputum + MRSA) MRSA UTI Left renal mass Anemia H/O UGIB Hyponatremia Hypomagnesmia : replaced NSVT on telemetry Moderate left and small right pleural effusion Small pericardial effusion on CT chest MIld Pulmonary HTN Thank you for allowing me to participate in patient's care. Please fell free to call with questions or concerns. Attestations Medical Necessity Statement*: Care expected to cross 2 midnights. Coding Level of Care Code Acute Turntable Engineer for Gaby Curry Diagnoses CHF (congestive heart failure) I50.23 Heart failure chronicity: acute on chronic Heart failure type: systolic Acute kidney injury superimposed on chronic kidney disease N17.9; N18.9 Atrial fibrillation with rapid ventricular response I48.91 Elevated troponin R77.8 Anemia N18.4; D63.1 Anemia type: due to chronic kidney disease Chronic kidney disease stage: stage 4 (severe)
--- NOTE | 2021-02-28 10:40 | PC.SOCIAL ---
IMM Updated Updated pt and family at bedside on Pg 2 IMM. No questions voiced. Provided pt and family at bedside a copy. Signed, dated, & timed copy in chart.
--- NOTE | 2021-02-28 11:02 | P.PN_ITS ---
Subjective Subjective: Interval history: Patient was examined this morning, she continues to have poor appetite, she is complaining of bruising around her dialysis catheter site, in her chest, she tells me that she bruises easily, but is not in any pain, no fevers overnight, no chest pain, no shortness of breath, she still on 4 L, yesterday during dialysis, she tells me that she just did not feel well, she did not feel well after dialysis, and she tells me her breathing is about the same Vitals/I&O/Wt Last Vital Signs Temp 94.5 F L 02/27/21 15:45 Pulse 106 H 02/28/21 08:32 Resp 14 02/28/21 08:32 BP 121/86 02/28/21 06:00 Pulse Ox 92 02/28/21 08:32 02/27/21 02/28/21 02/28/21 22:59 06:59 14:59 Intake Total 395.984 / 882.734 452.250 / 1334.984 Output Total 150 / 175 50 / 225 Balance 245.984 / 707.734 402.250 / 1109.984 Weight last 48 hrs Weight 70.307 kg Weight 70.534 kg Physical Exam Const: COMMON NORMALS: no acute distress GENERAL APPEARANCE: frail appearing ORIENTATION/CONSCIOUSNESS: Yes awake, Yes oriented to person, Yes oriented to place and Yes oriented to time Chest: OTHER: Right dialysis catheter in place, bruising along anterior chest Resp: COMMON NORMALS: normal respiratory effort, No retractions and No use of accessory muscles AUSCULTATION: crackles Cardio: COMMON NORMALS: S1 normal heart sound present and S2 normal heart sound present RATE: tachycardic RHYTHM: abnormal rhythm HEART SOUNDS: S1 normal heart sound present, S2 normal heart sound present and Murmur heart sound present GI: COMMON NORMALS: Normal to inspection, nondistended, normoactive bowel sounds present, Soft to palpation and non-tender PALPATION: Yes Soft to palpation Extremity: NARRATIVE EXTREMITY EXAM: 1+ pitting edema bilaterally, generalized anasarca Neuro: SENSORIUM/ORIENTATION: Yes oriented to person, Yes oriented to place and Yes oriented to time Urinary Catheter Management^: Escobar: Cath Placed During This Visit: yes Reason for Continuing Indwelling Catheter: Accurate Measurement of Urinary Output in Critically Ill Patients Urinary Catheter Date of Insertion: 02/17/21 Urinary Catheter Time of Insertion: 14:30 Data : 02/28/21 05:13 02/28/21 05:13 Micro: Microbiology 02/25/21 11:30 Gram Stain - Final Pleural Fluid Anaerobic Culture - Preliminary Body Fluid Culture - Final A&P Assessment and plan (1) Left renal mass: -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 -Known since previous admissions, has a as of yet to follow-up with outpatient urology -I did discuss with urology, they felt that this likely looks like a benign cyst on imaging, however will need outpatient follow-up Status: Acute (2) Right upper lobe pneumonia: on broad-spectrum antibiotic therapy, on 5 L, sputum cultures grew MRSA, discontinue Primaxin, switch to vancomycin Status: Acute (3) Acute respiratory failure with hypoxia: -Secondary to right upper lobe pneumonia/left upper and left lower lobe, systolic and diastolic CHF exacerbation, A. fib with RVR, cavitary lung mass, bilateral pleural effusions -Echocardiogram from January 06, 2021 shows ejection fraction of 45%, global hypokinesis, grade 4 out of 4 diastolic dysfunction, severely elevated filling pressures, moderate pulmonary hypertension, right ventricular systolic pressure 52.7 mmHg - anterior segment right upper lobe spiculated mass with evidence of early cavitation dimensions approximately 37 mm x 25 mm x 34 mm. Concern for primary lung carcinoma. Moderate left pleural and small right pleural effusion -Status post thoracocentesis, 1200 mL drained on the left, seems transudative, pathology pending, Gram stain no organisms, moderate white blood cells -On chest x-ray yesterday, had a small left apical pneumothorax, no respiratory distress, no chest pain complaints, chest x-ray this morning does not clinically show significant pneumothorax -Chest x-ray shows improved pulmonary vascular congestion -has anasarca, 3+ pitting edema, chest x-ray does show improved pulmonary vascular congestion, crackles on exam -Yesterday she did not tolerate dialysis well, will try another session today Plan: -Continue to monitor in ICU -Stop Primaxin, stop Zyvox, switch to vancomycin, renal dose, monitor re spiratory status closely, DuoNeb, oxygen therapy, flutter valve, incentive spirometer, -Follow blood cultures, sputum cultures, urine bacterial antigens, MRSA in sputum culture, urine culture positive for staph aureus -Currently off Cardizem drip, switch to Cardizem 90 every 6 hours -Dopamine drip to maintain MAP greater than 75 during dialysis -Plan on dialysis today -[place] response to Bumex therapy, urine output 225 cc monitor creatinine, monitor urine output, monitor electrolytes, continue dopamine with albumin -Right tunneled dialysis catheter in place -For now anticoagulation is contraindicated given hemoptysis, GI bleed, Hemoccult positive stools -Hemoglobin at 6.7, will transfuse 2 units PRBC -Platelet count 76,000, has not received any heparin products throughout her hospitalization, except yesterday during dialysis catheter placement during dialysis. No overt signs of bleeding, will do HIT panel, peripheral smear, stop Zyvox, switch to vancomycin. Monitor platelet count, monitor for bleeding -Na 129, likely secondary to poor oral intake, will receive dialysis -PT OT, speech therapy -Has protein calorie malnutrition, hypoalbuminemia, likely contributing to anasarca, will have this speech therapy and nutrition's to see patient -Severe deconditioning, muscle wasting, nurses to get up into a chair -SCDs for DVT prophylaxis not placed due to severe lower extremity pain, anticoagulation contraindicated given GI bleed, hemoptysis, patient understands the risks of not having her on anticoagulation and SCDs, risk of DVTs and PEs, voiced understanding, all questions answered, declined SCDs, anticoagulation contraindicated due to anemia, concerns for lower GI bleed, Hemoccult positive stools, bilateral lower extremity ultrasounds negative for DVT, continue to monitor -Full code -Patient is healthcare power of managing manager is her brother Nestor, information is in the chart -Overall she has a poor performance status -Prognosis is guarded plan for today switch to vancomycin, continue PT OT, dialysis, monitor fluid status, monitor for bleeding, maintain MAP greater than 75 better heart rate control Status: Acute (4) Paroxysmal A-fib: Cardiology on consult Status: Acute (5) Anemia: Continue to monitor, likely multifactorial from acute renal failure, Hemoccult positive stool slow GI bleed Status: Acute Qualifiers: Anemia type: due to chronic kidney disease Chronic kidney disease stage: stage 4 (severe) Qualified Code(s): N18.4 - Chronic kidney disease, stage 4 (severe); D63.1 - Anemia in chronic kidney disease (6) Hematochezia due to medication: Status: Acute (7) Acute kidney injury superimposed on chronic kidney disease: Status: Acute (8) CHF (congestive heart failure): Status: Chronic Qualifiers: Heart failure type: systolic Heart failure chronicity: acute on chronic Qualified Code(s): I50.23 - Acute on chronic systolic (congestive) heart failure (9) UTI (urinary tract infection): -MRSA UTI, with Escobar catheter in place, on Zyvox Status: Acute Qualifiers: Urinary tract infection type: site unspecified Hematuria presence: without hematuria Qualified Code(s): N39.0 - Urinary tract infection, site not specified (10) 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 -Pulmonary on consult -Discussed options including biopsy, chemo, surgery, hospice -Wants to pursue treatment, pursue biopsy if needed, pursue chemo -Follow thoracocentesis, for pathology -Pulmonary on consult Status: Acute (11) Bilateral pleural effusion: -Will undergo thoracocentesis, also for cytology Status: Acute (12) Anasarca: Status: Acute (13) Protein calorie malnutrition: Status: Acute (14) Physical deconditioning: Status: Acute (15) Hypoalbuminemia: Status: Acute (16) Thrombocytopenia: Status: Acute (17) Pneumothorax on left: Status: Acute Additional A&P Information Plan for today increase diuretic therapy, monitor blood pressures, monitor heart rates, await family and patient's decision for dialysis, possibly require dialysis in the next 24-48 hrs., Attestations Medical Necessity Statement*: Patient requires hospitalization for acute respiratory failure secondary to fluid overload, pneumonia, hyponatremia, a nemia, thrombocytopenia, squamous cell carcinoma of lung, pleural effusions, protein calorie malnutrition, physical deconditioning, hyperbilirubinemia, critical care time spent over 55 minutes Coding Level of Care Code Acute Dog Walker for [facility] Fwd Diagnoses Left renal mass N28.89 Right upper lobe pneumonia J18.9 Acute respiratory failure with hypoxia J96.01 Paroxysmal A-fib I48.0 Anemia N18.4; D63.1 Anemia type: due to chronic kidney disease Chronic kidney disease stage: stage 4 (severe) Hematochezia due to medication K92.1; T50.905A Acute kidney injury superimposed on chronic kidney disease N17.9; N18.9 CHF (congestive heart failure) I50.23 Heart failure type: systolic Heart failure chronicity: acute on chronic UTI (urinary tract infection) N39.0 Urinary tract infection type: site unspecified Hematuria presence: without hematuria 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 J98.4 Bilateral pleural effusion J90 Anasarca R60.1 Protein calorie malnutrition E46 Physical deconditioning R53.81 Hypoalbuminemia E88.09 Thrombocytopenia D69.6 Pneumothorax on left J93.9
[2021-02-28 11:03] LABS: LAB Peripheral Smear Sent for Review
[2021-02-28] MEDS: sodium chloride 0.9% 250 ML 100 ML IV (11:09)
[2021-02-28] MEDS: vancomycin 1,000 MG in sodium chloride 0.9% 250 ML 250 MG IV (14:49)
[2021-02-28] MEDS: sevelamer 800 mg Tablet PO (17:44)
--- NOTE | 2021-02-28 18:50 | PC.NURSE ---
Addendum entered by Yoly Fierro RN 02/28/21 19:12: She is picky about eating. She ate a couple bites at breakfast, refused lunch. She did eat the grilled cheese sandwich at dinner. She coughed up some reddish brown tenacious phlegm several times this evening. She was incontinent of stool, a partial bed bath and linen changed provided. She yelled out in pain durig repositioning but then denied the need for pain meds She stated she was going to save it for later tonight. Original Note: Shift summary: Pt rested in bed most of the day with the exception of when PT worked with her, then she sat on the side of the bed. She is edematous and covered in bruises, fragile skin. Her bottom is still macerated but looks better today. Her heart rate has improved with the increased dosage of cardizem. Cardizem gtt stopped this am. Her B/P have fluctuated at times necessitating Dopamine gtt to be adjusted accordingly. She had Dopamine infusing at 5mcg/kg/hr during dialysis today. She had frequent PVCs during Dialysis. She did tolerated it better today., 1500ml pulled. She received 2 units of PRBCs during dialysisi. Her urine is dark,hematuria and only 25ml this shift.
[2021-02-28] MEDS: atorvastatin 40 mg Tablet PO (20:06)
[2021-02-28] MEDS: DOPamine drip 400 MG/250 ML PREMIX 7.8 MG IV (23:10)
[2021-03-01] VITALS (45 sets, daily range): BP systolic 81–136; BP diastolic 41–110; PULSE 60–97; RESP 12–26; TEMP 35.5–35.9; O2SAT 90–96
[2021-03-01] MEDS: dilTIAZem 60 mg Tablet 90 MG PO ×4 (02:42→20:25)
[2021-03-01 04:10] LABS: Basophils % 0.2 %; Eosinophils # 0.1 10^3/uL (0.0-0.8); Eosinophils % 0.4 %; Hematocrit 30.6 % (37.0-47.0); Hemoglobin 9.7 g/dL (11.5-15.3); Lymphocytes # 1.6 10^3/uL (0.8-4.8); Lymphocytes % 10.2 %; Mean Corpuscular HGB Conc 31.7 g/dL (30.0-36.0); Mean Corpuscular Hemoglobin 27.4 pg (28.0-34.0); Mean Corpuscular Volume 86.4 fL (81-99); Mean Platelet Volume 10.7 fL (7.4-10.4); Monocytes # 0.6 10^3/uL (0.2-0.9); Monocytes % 3.8 %; Neutrophils # 13.68 10^3/uL (1.8-7.7); Neutrophils % 84.8 %; Nucleated Red Blood Cells % 0.1 %; Platelet Count 45 10^3/cmm (130-400); Red Blood Count 3.54 10^6/uL (4.1-5.3); Red Cell Distribution Width 17.7 % (12.1-15.1); White Blood Count 16.1 10^3/uL (4.0-10.0)
[2021-03-01 04:38] LABS: INR 1.63 (0.8-1.2)
[2021-03-01 05:18] LABS: Alanine Aminotransferase < 5 U/L (0-33); Albumin Level 3.8 g/dL (3.5-5.2); Alkaline Phosphatase 121 IU/L (35-105); Anion Gap 19.2 (5-19); Aspartate Amino Transferase 16 U/L (0-32); Blood Urea Nitrogen 54 mg/dL (8-23); Calcium 8.5 mg/dL (8.5-10.5); Carbon Dioxide 21 mmol/L (22-29); Chloride 95 mmol/L (98-107); Globulin 1.3 g/dL (1.3-4.6); Glucose 117 mg/dL (65-115); Magnesium 1.9 mg/dL (1.7-2.3); NT Pro B Type Natriuretic Pept 9559 pg/mL (0-450); Osmolality Calculated 288 mOsm/kg (285-295); Potassium 4.2 mmol/L (3.5-5.1); Sodium 131 mmol/L (136-145); Total Bilirubin 2.6 mg/dL (0.15-1.2); Total Protein 5.1 g/dL (6.6-8.7)
--- NOTE | 2021-03-01 07:00 | XRR_ITS ---
PROCEDURE INFORMATION: Exam: XR Chest Exam date and time: 03/01/2021 12:00 AM Age: 85 years old Clinical indication: Dyspnea; Additional info: SOB TECHNIQUE: Imaging protocol: XR of the chest. Views: 1 view. COMPARISON: CR (CHEST, ) 02/28/2021 6:29 AM FINDINGS: Left lung base not included on the study. There is ill-defined opacification in bilateral mid to lower lung zones, prominent on right and mild to moderate on left, may represent edema/congestion, infiltrates, or a combination thereof. Underlying pleural fluid appears to be present. Findings appear mostly new on right and similar on left. There is scattered pulmonary scarring bilaterally. Visualized cardiac silhouette size appears enlarged. Pericardial effusion not excluded. There are calcifications in the thoracic aorta. Similar position of bilateral central venous catheters. XR/XR chest 1V portable [id number] IMPRESSION: There is ill-defined opacification in bilateral mid to lower lung zones, prominent on right and mild to moderate on left, may represent edema/congestion, infiltrates, or a combination thereof. Underlying pleural fluid appears to be present. Findings appear mostly new on right and similar on left. Visualized cardiac silhouette size appears enlarged. Pericardial effusion not excluded.
--- NOTE | 2021-03-01 07:57 | P.PN_ITS ---
Subjective Subjective: Interval history: s/p hd yesterday. remains on low dose dopamine. swollen, weak, tender arm Medications: Reviewed: Yes Medication Review Details: Current Medications Acetaminophen (Acetaminophen 325 Mg Tablet) 650 mg PO Q6H PRN PRN Reason: Mild/Mod Pain Or Temp >/= 101 Last Admin: 02/24/21 00:33 Dose: 650 mg Documented by: Albuterol/Ipratropium (Ipratropium-Albuterol 3 Ml Neb) 3 ml INHALATION QID.RESPIRATORY PRN PRN Reason: SHORTNESS OF BREATH Last Admin: 02/24/21 07:45 Dose: 3 ml Documented by: Aspirin (Aspirin 81 Mg Ec Tablet) 81 mg PO DAILY [facility] Last Admin: 02/28/21 08:55 Dose: 81 mg Documented by: Atorvastatin Calcium (Atorvastatin 40 Mg Tablet) 40 mg PO BEDTIME@1999 [facility] Last Admin: 02/28/21 20:06 Dose: 40 mg Documented by: Bumetanide (Bumetanide 0.25 Mg/Ml Sdv 10 Ml) 2 mg IV TID [facility] Last Admin: 02/28/21 20:08 Dose: 2 mg Documented by: Calcium Carbonate (Calcium Carbonate 500 Mg Chew Tablet) 1,000 mg PO BID [facility] Last Admin: 02/28/21 17:44 Dose: 1,000 mg Documented by: Diltiazem HCl (Diltiazem 60 Mg Tablet) 90 mg PO Q6H [facility] Last Admin: 03/01/21 02:42 Dose: 90 mg Documented by: Docusate Sodium (Docusate Sodium 100 Mg Capsule) 100 mg PO BID [facility] Last Admin: 02/28/21 17:44 Dose: 100 mg Documented by: Albumin Human (Albumin) 25 gm in 100 mls @ 60 mls/hr IV DAILY [facility] Last Infusion: 02/28/21 10:35 Dose: Infused Documented by: Diltiazem HCl 125 mg/ Sodium (Chloride) 125 mls @ 0 mls/hr IV .Q0M [facility]; Prot ocol Last Titration: 02/28/21 09:00 Dose: 0 mg/hr, 0 mls/hr Documented by: Dopamine HCl/Dextrose (Intropin Drip) 400 mg in 250 mls @ 13.013 mls/hr IV PRN [facility]; Protocol Last Admin: 02/28/21 23:10 Dose: 3 mcg/kg/min, 7.8 mls/hr Documented by: Vancomycin HCl 1,000 mg/ (Sodium Chloride) 250 mls @ 250 mls/hr IV MoWeFr@1000 [facility] Last Infusion: 02/28/21 15:50 Dose: Infused Documented by: Lactulose (Lactulose Oral Liq 20 Gm/30 Ml Udc) 20 gm PO Q12H PRN PRN Reason: consitpation Lorazepam (Lorazepam 2 Mg/Ml Inj 1 Ml) 0.5 mg IVP Q6H PRN PRN Reason: ANXIETY Magnesium Oxide (Magnesium Oxide 400 Mg Tablet) 400 mg PO ONCE [facility] Metoprolol Tartrate (Metoprolol Tartrate 1 Mg/1 Ml Sdv 5 Ml) 5 mg IV Q4H PRN PRN Reason: tachycardia Midodrine (Midodrine 5 Mg Tablet) 10 mg PO TID [facility] Last Admin: 02/28/21 20:06 Dose: 10 mg Documented by: Morphine Sulfate (Morphine 4 Mg/Ml Sdv 1 Ml) 1 mg IVP Q4H PRN PRN Reason: SEVERE PAIN Last Admin: 02/25/21 12:06 Dose: 1 mg Documented by: Naloxone HCl (Naloxone 0.4 Mg/Ml Sdv) 0.1 mg IVP Q2M PRN PRN Reason: OPIATERV Ondansetron HCl (Ondansetron 2 Mg/Ml Sdv 2 Ml) 4 mg IVP Q8H PRN PRN Reason: vomiting, or N/V if npo Last Admin: 02/25/21 09:38 Dose: 4 mg Documented by: Polyethylene Glycol (Polyethylene Glycol 3350 Pkt 17 Gm) 17 gm PO DAILY [facility] Last Admin: 02/28/21 08:56 Dose: 17 gm Documented by: Sevelamer Carbonate (Sevelamer 800 Mg Tablet) 800 mg PO DAILY@1700 [facility] Last Admin: 02/28/21 17:44 Dose: 800 mg Documented by: Sucralfate (Sucralfate 1 Gm Tablet) 1 gm PO BID@0800,2000 [facility] Last Admin: 02/28/21 20:06 Dose: 1 gm Documented by: Vitals/I&O/Wt Last Vital Signs Temp 95.6 F L 02/28/21 16:00 Pulse 91 03/01/21 07:51 Resp 16 03/01/21 07:51 BP 92/69 03/01/21 06:00 Pulse Ox 91 03/01/21 07:51 02/28/21 03/01/21 03/01/21 22:59 06:59 14:59 Intake Total 347.156 / 1699.766 Output Total Balance 322.156 / 1674.766 Weight last 48 hrs Weight 68.991 kg Weight 70.307 kg Physical Exam Narrative: EXAM NARRATIVE: elderly lady in bed NC02- uncomfortable vs noted - a fib w/ HR in 90's heent- nc/at, eomi, anicteric neck supple lungs dull bases and crackles heart- irreg irreg, +Systolic murmur abd soft, nt, nd, +BS ext b/l edema skin red by ankle large ecchymosis by Rt ACW tuneled catheter and down rt arm neuro- a,a, o x 2+ + bailey catheter Urinary Catheter Management^: Bailey: Cath Placed During This Visit: yes Reason for Continuing Indwelling Catheter: Accurate Measurement of Urinary Output in Critically Ill Patients Urinary Catheter Date of Insertion: 02/17/21 Urinary Catheter Time of Insertion: 14:30 Data : 03/01/21 03:45 03/01/21 03:45 Micro: Microbiology 02/25/21 11:30 Gram Stain - Final Pleural Fluid Anaerobic Culture - Preliminary Body Fluid Culture - Final A&P Additional A&P Information 1. Renal Failure CKD with SHAQUILLE. likely hemodynamically mediated, CRS, pre-renal Given oliguria in response to diuretics in the setting of hypervolemia - pt started HD last 2 days - Dr. Virgen placed a dialysis line on 02/27/21 -she required dopamine on dialysis yesterday and a cardizem drip- to maintain BP and keep HR controlled -will hold HD today Strict Is and Os Avoid nephrotoxins 1b. a fib w/ rvr- cardizem. -bnp remains [id number] 2. Lung mass s/p thoracentesis; pathology pending indeterminate mass in kidney noted Mgmt per pulm 3. Pneumonia Combo Abx on board -lung mass as per pulm 4. anemia- from SHAQUILLE, lung mass, and bleed s/p dialysis catheter- hgb improved s/p 2 u prbc tx yesterday 5. thrombocytopenia- plts down to 45- -check hit ab - q if from abx- primaxin and zyvox were stopped. now on vancomycin 6. acid/ base status- in balance 7, hyponatremia- likely from volume overload and SHAQUILLE - monitor w/ dialysis -also lung mass can cause hyponatremia and siadh 8. leukocytosis worsening 9. lactic acidosis from hypotension and anemia 10. phos improved -vit d total= 33 -pth 147 -monitor Patient seen and examined via telemedicine, with the assistance of the bedside RN > 25 min spent in evaluation and mgmt of patient Attestations Medical Necessity Statement*: shaquille, leukocytosis, thrombocytopenia, chf Time Spent in Patient Care: 16 - 35 minutes Coding Level of Care Code Acute Dope Mixer for Anatg Patricio
--- NOTE | 2021-03-01 08:00 | PC.NURSE ---
SCDs off at this time per pt request.
[2021-03-01 08:30] LABS: Lactate Dehydrogenase 215 U/L (135-214)
[2021-03-01] MEDS: midodrine 5 mg TABLET 10 MG PO ×3 (09:28→20:26)
[2021-03-01] MEDS: polyethylene glycol 3350 Pkt 17 gm PO (09:29)
[2021-03-01] MEDS: sucralfate 1 gm Tablet PO ×2 (09:29→20:25)
[2021-03-01] MEDS: aspirin 81 mg EC Tablet PO (09:29)
[2021-03-01] MEDS: calcium carbonate 500 mg Chew Tablet 1000 MG PO ×2 (09:29→18:54)
[2021-03-01] MEDS: bumetanide 0.25 mg/mL SDV 10 mL 2 MG IV ×3 (09:30→20:25)
--- NOTE | 2021-03-01 10:34 | PC.CHAP ---
Pastoral Care Encounter/Spiritual Assessment Type of Contact [] Declined viscosity tester visit [] Patient/Family/Request visit [] Outpatient visit [] Follow-up visit [] Physician referral [] Code/Alert [x] Routine visit [] Staff referral [] Actively dying [] Patient sleeping [] Family support [] [] Out of room [] Palliative care [] [] Receiving care in room [] Pre-surgical visit [] Trauma [] Long length of stay [x] ICU visit [x] Other: isolation Relational/Emotional Strength [] Patient feels connected with others/family/visitors/staff [] Distress [] Loneliness/isolation [] Abandonment Spirituality of Patient [] Person of Jalyn [] Attends Faith of their Jalyn [] Believes in Prayer [] Reads Bible or Synagogue materials [] There are Spiritual issues to be addressed Agricultural Research Technologist Interventions [x] Prayer [] Active listening [] Non-anxious presence [] Spiritual/emotional support [] Crisis/trauma care [] Spiritual counseling [] Bereavement support [] Provided bereavement packet [] Provided Bible/devotional materials [] Provided toy/stuffed animal, coloring book to patient or family member [] Provided Communion [] Anointing/Jber [] Salvation [x] Completed spiritual assessment [] Other: Impact on Illness or Injury [] Angry [] Fearful [] Anxious [] Often cries [] Exhaustion [] Unable to work [] Unable to attend restorationist [] Unable to walk/stand [] Unable to read [] Unable to drive [] Unable to eat/drink [] Unable to sleep [] Unable to be with family [] Patient intubated [] Other: Summary Time spent with patient
[2021-03-01] MEDS: heparin, porcine 1,000 unit/mL INJ 10 mL HE (13:56)
[2021-03-01 14:15] LABS: Basophils % 0.3 %; Eosinophils # 0.1 10^3/uL (0.0-0.8); Eosinophils % 0.4 %; Hematocrit 28.5 % (37.0-47.0); Hemoglobin 9.5 g/dL (11.5-15.3); Lymphocytes % 7.5 %; Mean Corpuscular HGB Conc 33.3 g/dL (30.0-36.0); Mean Corpuscular Volume 84.1 fL (81-99); Mean Platelet Volume 9.8 fL (7.4-10.4); Monocytes # 0.5 10^3/uL (0.2-0.9); Monocytes % 3.7 %; Neutrophils # 11.53 10^3/uL (1.8-7.7); Neutrophils % 87.7 %; Nucleated Red Blood Cells % 0 %; Platelet Count 35 10^3/cmm (130-400); Red Blood Count 3.39 10^6/uL (4.1-5.3); Red Cell Distribution Width 17.7 % (12.1-15.1); White Blood Count 13.1 10^3/uL (4.0-10.0)
[2021-03-01] MEDS: vancomycin 1,000 MG in sodium chloride 0.9% 250 ML 250 MG IV (15:31)
--- NOTE | 2021-03-01 15:44 | P.PN_ITS ---
Subjective Subjective: Interval history: Patient was seen this morning, her brother is at bedside, she tells me that she did a lot better with dialysis yesterday, but still has fluid on her legs, and fluid on her right arm, she thought her right tunneled dialysis catheter was leaking, but it was actually the anasarca from her right arm, no fevers overnight, no chills, she tells me her appetite has improved, she is actually eating a blueberry cupcake this morning, she tells me it still hurts to ambulate, Vitals/I&O/Wt Last Vital Signs Temp 96.6 F L 03/01/21 14:00 Pulse 90 03/01/21 14:00 Resp 15 03/01/21 14:00 BP 100/69 03/01/21 14:00 Pulse Ox 95 03/01/21 14:00 03/01/21 03/01/21 03/01/21 06:59 14:59 22:59 Intake Total 59.15 / 1758.916 355.503 / 355.503 Balance 59.15 / 1733.916 355.503 / 355.503 Weight last 48 hrs Weight 68.991 kg Weight 70.307 kg Physical Exam Const: COMMON NORMALS: no acute distress and patient oriented x3 GENERAL APPEARANCE: frail appearing ORIENTATION/CONSCIOUSNESS: Yes awake, Yes oriented to person, Yes oriented to place and Yes oriented to time Chest: OTHER: Right chest, dialysis catheter placed, right internal jugular Left, subclavian line Does have multiple areas of bruising along the chest, no active bleeding Resp: COMMON NORMALS: normal respiratory effort and No retractions AUSCULTATION: crackles Cardio: COMMON NORMALS: regular rate, S1 normal heart sound present and S2 normal heart sound present RATE: regular rate RHYTHM: abnormal rhythm HEART SOUNDS: S1 normal heart sound present, S2 normal heart sound present and no murmurs GI: COMMON NORMALS: Normal to inspection, nondistended, normoactive bowel sounds present, Soft to palpation, non-tender and No hepatosplenomegaly present PALPATION: Yes Soft to palpation and Yes No hepatosplenomegaly present : OTHER: Escobar catheter in place Extremity: OTHER: 1+ pitting edema Neuro: COMMON NORMALS: patient oriented x3 SENSORIUM/ORIENTATION: Yes oriented to person, Yes oriented to place and Yes oriented to time Skin: NARRATIVE SKIN EXAM: Generalized anasarca Urinary Catheter Management^: Escobar: Cath Placed During This Visit: yes Reason for Continuing Indwelling Catheter: Accurate Measurement of Urinary Output in Critically Ill Patients Urinary Catheter Date of Insertion: 02/17/21 Urinary Catheter Time of Insertion: 14:30 Data : 03/01/21 13:57 03/01/21 03:45 Micro: Microbiology 02/25/21 11:30 Gram Stain - Final Pleural Fluid Anaerobic Culture - Preliminary Body Fluid Culture - Final A&P Assessment and plan (1) Left renal mass: -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 -Known since previous admissions, has a as of yet to follow-up with outpatient urology -I did discuss with urology, they felt that this likely looks like a benign cyst on imaging, however will need outpatient follow-up Status: Acute (2) Right upper lobe pneumonia: on broad-spectrum antibiotic therapy, on 4 L, sputum cultures grew MRSA, discontinue Primaxin, switch to vancomycin Status: Acute (3) Acute respiratory failure with hypoxia: -Secondary to right upper lobe pneumonia/left upper and left lower lobe, systolic and diastolic CHF exacerbation, A. fib with RVR, cavitary lung mass, bilateral pleural effusions -Echocardiogram from January 06, 2021 shows ejection fraction of 45%, global hypokinesis, grade 4 out of 4 diastolic dysfunction, severely elevated filling pressures, moderate pulmonary hypertension, right ventricular systolic pressure 52.7 mmHg - anterior segment right upper lobe spiculated mass with evidence of early cavitation dimensions approximately 37 mm x 25 mm x 34 mm. Concern for primary lung carcinoma. Moderate left pleural and small right pleural effusion -Status post thoracocentesis, 1200 mL drained on the left, seems transudative, pathology pending, Gram stain no organisms, moderate white blood cells -On chest x-ray yesterday, had a small left apical pneumothorax, no respiratory distress, no chest pain complaints, chest x-ray this morning does not clinically show significant pneumothorax -Chest x-ray shows improved pulmonary vascular congestion -Still has has anasarca, 1+ pitting edema, chest x-ray does show improved pulmonary vascular congestion, crackles on exam -Did tolerate dialysis well yesterday, will try another dialysis session today with dopamine, she continues to have generalized anasarca, -We will see if CRRT is available Plan: -Continue to monitor in ICU -continue vancomycin, renal dose, monitor respiratory status closely, DuoNeb, oxygen therapy, flutter valve, incentive spirometer, -Follow blood cultures, sputum cultures, urine bacterial antigens, MRSA in sputum culture, urine culture positive for staph aureus - Cardizem 90 every 6 hours -Dopamine drip to maintain MAP greater than 75 during dialysis -Plan on dialysis today -[place] response to Bumex therapy, urine output 25 cc monitor creatinine, monitor urine output, monitor electrolytes, continue dopamine with albumin -Right tunneled dialysis catheter in place -Left subclavian line in place -Did have a small left apical pneumothorax seen on chest x-ray on 02/28/2020 -For now anticoagulation is contraindicated given hemoptysis, GI bleed, Hemoccult positive stools -Hemoglobin 9.5, will transfuse 2 units PRBC -Platelet count 35,000, likely ERIC, has not received any heparin products throughout her hospitalization, except during dialysis catheter placement during dialysis. No overt signs of bleeding, will do HIT panel, peripheral smear does not show any pseudoclumping, stop Zyvox, switch to vancomycin. Monitor platelet count, monitor for bleeding, avoid heparin products -Na 131, likely secondary to poor oral intake, will receive dialysis -PT OT, speech therapy -Has protein calorie malnutrition, hypoalbuminemia, likely contributing to anasarca, will have this speech therapy and nutrition's to see patient -Severe deconditioning, muscle wasting, nurses to get up into a chair -SCDs for DVT prophylaxis not placed due to severe lower extremity pain, anticoagulation contraindicated given GI bleed, hemoptysis, patient understands the risks of not having her on anticoagulation and SCDs, risk of DVTs and PEs, voiced understanding, all questions answered, declined SCDs, anticoagulation contraindicated due to anemia, concerns for lower GI bleed, Hemoccult positive stools, bilateral lower extremity ultrasounds negative for DVT, continue to mo nitor -Full code -Patient is healthcare power of employment attorney is her brother Nestor, information is in the chart -Overall she has a poor performance status -Prognosis is guarded plan for today s hemodialysis, monitor platelet count, monitor for bleeding, monitor heart rates, hopefully can de-escalate to cardiac stepdown unit in the next 24 to 48 hours Status: Acute (4) Paroxysmal A-fib: Cardiology on consult Status: Acute (5) Anemia: Continue to monitor, likely multifactorial from acute renal failure, Hemoccult positive stool slow GI bleed Status: Acute Qualifiers: Anemia type: due to chronic kidney disease Chronic kidney disease stage: stage 4 (severe) Qualified Code(s): N18.4 - Chronic kidney disease, stage 4 (severe); D63.1 - Anemia in chronic kidney disease (6) Hematochezia due to medication: Status: Acute (7) Acute kidney injury superimposed on chronic kidney disease: Status: Acute (8) CHF (congestive heart failure): Status: Chronic Qualifiers: Heart failure type: systolic Heart failure chronicity: acute on chronic Qualified Code(s): I50.23 - Acute on chronic systolic (congestive) heart failure (9) UTI (urinary tract infection): -MRSA UTI, with Escobar catheter in place, on Zyvox Status: Acute Qualifiers: Urinary tract infection type: site unspecified Hematuria presence: without hematuria Qualified Code(s): N39.0 - Urinary tract infection, site not specified (10) 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 -Pulmonary on consult -Discussed options including biopsy, chemo, surgery, hospice -Wants to pursue treatment, pursue biopsy if needed, pursue chemo -Follow thoracocentesis, for pathology -Pulmonary on consult Status: Acute (11) Bilateral pleural effusion: -Will undergo thoracocentesis, also for cytology Status: Acute (12) Anasarca: Status: Acute (13) Protein calorie malnutrition: Status: Acute (14) Physical deconditioning: Status: Acute (15) Hypoalbuminemia: Status: Acute (16) Thrombocytopenia: Status: Acute (17) Pneumothorax on left: Status: Acute (18) Heparin induced thrombocytopenia: Status: Acute Attestations Medical Necessity Statement*: Patient requires hospitalization for acute respiratory failure secondary fluid overload, requiring dialysis, now with heparin-induced thrombocytopenia Time Spent in Patient Care: Greater than 35 minutes (>than 50% of time spe nt in counselling and/or direct pt care on unit) . Critical Care Time: Critical Care Time (min): 55 Coding Level of Care Code Acute Operations/Dispatch for [facility] Fwd Diagnoses Left renal mass N28.89 Right upper lobe pneumonia J18.9 Acute respiratory failure with hypoxia J96.01 Paroxysmal A-fib I48.0 Anemia N18.4; D63.1 Anemia type: due to chronic kidney disease Chronic kidney disease stage: stage 4 (severe) Hematochezia due to medication K92.1; T50.905A Acute kidney injury superimposed on chronic kidney disease N17.9; N18.9 CHF (congestive heart failure) I50.23 Heart failure type: systolic Heart failure chronicity: acute on chronic UTI (urinary tract infection) N39.0 Urinary tract infection type: site unspecified Hematuria presence: without hematuria 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 J98.4 Bilateral pleural effusion J90 Anasarca R60.1 Protein calorie malnutrition E46 Physical deconditioning R53.81 Hypoalbuminemia E88.09 Thrombocytopenia D69.6 Pneumothorax on left J93.9 Heparin induced thrombocytopenia D75.82
[2021-03-01] MEDS: sevelamer 800 mg Tablet PO (16:22)
--- NOTE | 2021-03-01 18:28 | PC.OT ---
OT tx attempted at 1355. Pt receiving dialysis. OT tx withheld. Will attempt again tomorrow.
--- NOTE | 2021-03-01 18:37 | PM.PN ---
Subjective Subjective: Interval history: She feels better. On HD. Her hgb improved but platelet counts are dropping Vitals/I&O/Wt Last Vital Signs Temp 96.6 F L 03/01/21 14:00 Pulse 90 03/01/21 14:00 Resp 15 03/01/21 14:00 BP 100/69 03/01/21 14:00 Pulse Ox 95 03/01/21 14:00 03/01/21 03/01/21 03/01/21 06:59 14:59 22:59 Intake Total 59.15 / 1758.916 355.503 / 355.503 286.79 / 642.293 Balance 59.15 / 1733.916 355.503 / 355.503 286.79 / 642.293 Weight last 48 hrs Weight 152 lb 1.6 oz Weight 155 lb Physical Exam Narrative: EXAM NARRATIVE: GENERAL: overweight elderly woman in no acute distress HEENT: Extraocular movement intact. No icterus. +pallor NECK: + JVD , No masses CARDIOVASCULAR SYSTEM: S1-S2 irregular. No S3 or S4 present. systolic murmur + RESPIRATORY SYSTEM: Decreased breath sounds at bases. + crakles. ABDOMEN: Soft, nontender and obese. Normal bowel sounds present. EXTREMITIES: No cyanosis. 1-2+ edema in legs. legs pretty tender to touch [employer] MANU[employer]URING CONSULTANT: Patient is alert oriented ?3. No focal neurological deficits. SKIN: Normal turgor and temperature. Urinary Catheter Management^: Escobar: Cath Placed During This Visit: yes Reason for Continuing Indwelling Catheter: Accurate Measurement of Urinary Output in Critically Ill Patients Urinary Catheter Date of Insertion: 02/17/21 Urinary Catheter Time of Insertion: 14:30 Data : 03/02/21 04:55 03/02/21 04:55 Micro: Microbiology 02/25/21 11:30 Fungal Smear - Preliminary Pleural Fluid 02/25/21 11:30 Gram Stain - Final Pleural Fluid Anaerobic Culture - Preliminary Body Fluid Culture - Final A&P Assessment and plan (1) CHF (congestive heart failure): RV failure with HFmrEF Last known LVEF=45%. -She is on bumex with albumin per nephrology. -Off pressors at this time -On Hemodialysis Status: Chronic Qualifiers: Heart failure type: systolic Heart failure chronicity: acute on chronic Qualified Code(s): I50.23 - Acute on chronic systolic (congestive) heart failure (2) Acute kidney injury superimposed on chronic kidney disease: SHAQUILLE on CKD stage 4 Status: Acute (3) Atrial fibrillation with rapid ventricular response: Patient has been transitioned to PO cardizem. Continue Heart rates are controlled. Off pressors this AM Status: Acute (4) Elevated troponin: Status: Acute (5) Anemia: Hgb dropped significantly.Post blood transfusion yesterday, patient's HgB has improved appropriately Status: Acute Qualifiers: Anemia type: due to chronic kidney disease Chronic kidney disease stage: stage 4 (severe) Qualified Code(s): N18.4 - Chronic kidney disease, stage 4 (severe); D63.1 - Anemia in chronic kidney disease Additional A&P Information Right upper lung spiculated mass with cavitation: concern for malignancy Right upper lung PNA: On antibiotics per primary team (Sputum + MRSA) MRSA UTI Left renal mass Anemia H/O UGIB Hyponatremia Hypomagnesmia : replaced NSVT on telemetry Moderate left and small right pleural effusion Small pericardial effusion on CT chest MIld Pulmonary HTN Thank you for allowing me to participate in patient's care. Please fell free to call with questions or concerns. Attestations Medical Necessity Statement*: Care expected to cross 2 midnights. Coding Level of Care Code Acute Parliamentary Counsel for Gaby Curry Diagnoses CHF (congestive heart failure) I50.23 Heart failure type: systolic Heart failure chronicity: acute on chronic Acute kidney injury superimposed on chronic kidney disease N17.9; N18.9 Atrial fibrillation with rapid ventricular response I48.91 Elevated troponin R77.8 Anemia N18.4; D63.1 Anemia type: due to chronic kidney disease Chronic kidney disease stage: stage 4 (severe)
--- NOTE | 2021-03-01 19:24 | PC.NURSE ---
Shift summary: pt rested in bed throughout the day. It is painful to her to be repositioned. She stated this am she felt better after the fluids were removed. She still has extensive edema and bruising. Her right upper arm is purple and weeping serous fluid. She had HD today, 1480 removed. She has needed dopamine to keep her B/P high even sporadically throughout day shift but especially during dialysis. She has had miniscule amount of tea/brown urine ouput. She has been incontinent of bowel three times. first time was bloody tinges. Her bottom was less macerated, mostly in the gluteal cleft. she refuse lunch and dinner said she was stuffed. At bedside shift report tonight she is asking for bologna and cheese sandwich. [place] offed, she stated it would do.
--- NOTE | 2021-03-01 19:29 | PC.NURSE ---
Report given to Melita Pamla.
[2021-03-01] MEDS: atorvastatin 40 mg Tablet PO (20:25)
[2021-03-02] VITALS (30 sets, daily range): BP systolic 95–133; BP diastolic 42–108; PULSE 65–104; RESP 10–21; TEMP 36.4–36.7; O2SAT 81–99
[2021-03-02] MEDS: dilTIAZem 60 mg Tablet 90 MG PO ×4 (02:08→20:46)
[2021-03-02 05:38] LABS: Basophils % 0.3 %; Eosinophils # 0.1 10^3/uL (0.0-0.8); Eosinophils % 0.7 %; Hematocrit 25.8 % (37.0-47.0); Hemoglobin 8.2 g/dL (11.5-15.3); Lymphocytes % 9.2 %; Mean Corpuscular HGB Conc 31.8 g/dL (30.0-36.0); Mean Corpuscular Hemoglobin 28.1 pg (28.0-34.0); Mean Corpuscular Volume 88.4 fL (81-99); Monocytes # 0.4 10^3/uL (0.2-0.9); Monocytes % 3.2 %; Neutrophils # 9.53 10^3/uL (1.8-7.7); Neutrophils % 86.1 %; Nucleated Red Blood Cells % 0 %; Red Blood Count 2.92 10^6/uL (4.1-5.3); White Blood Count 11.1 10^3/uL (4.0-10.0)
[2021-03-02 05:44] LABS: INR 1.53 (0.8-1.2)
[2021-03-02 06:03] LABS: Lactate (Lactic Acid level) 1.1 mmol/L (0.5-2.2); NT Pro B Type Natriuretic Pept 8074 pg/mL (0-450)
[2021-03-02 06:06] LABS: Alanine Aminotransferase < 5 U/L (0-33); Albumin Level 3.2 g/dL (3.5-5.2); Alkaline Phosphatase 155 IU/L (35-105); Anion Gap 11.7 (5-19); Aspartate Amino Transferase 14 U/L (0-32); Blood Urea Nitrogen 28 mg/dL (8-23); Calcium 7.9 mg/dL (8.5-10.5); Carbon Dioxide 27 mmol/L (22-29); Chloride 99 mmol/L (98-107); Globulin 1.5 g/dL (1.3-4.6); Glucose 98 mg/dL (65-115); Magnesium 1.8 mg/dL (1.7-2.3); Osmolality Calculated 283 mOsm/kg (285-295); Phosphorus 2.5 mg/dL (2.5-4.5); Potassium 3.7 mmol/L (3.5-5.1); Sodium 134 mmol/L (136-145); Total Bilirubin 2.1 mg/dL (0.15-1.2); Total Protein 4.7 g/dL (6.6-8.7)
[2021-03-02 06:08] LABS: NT Pro B Type Natriuretic Pept 8052 pg/mL (0-450); Procalcitonin 0.58 ng/mL (0-0.5)
[2021-03-02 06:25] LABS: Slide Review Slide Review Perform
[2021-03-02 06:26] LABS: Platelet Count 23 10^3/cmm (130-400)
--- NOTE | 2021-03-02 06:43 | PC.NURSE ---
uneventful night, Critical Plt reported to Dr. Eduardo, off of Dopamine at this time, supine 45 degrees call light within reach
--- NOTE | 2021-03-02 07:00 | XR_ITS ---
WS: [id number] Portable AP upright chest, 03/02/2021 Clinical Data: sob Comparison: Portable chest, 03/01/2021 Findings: The bilateral patchy opacities remain the same and they may represent pneumonia and/or atel ectasis. The left subclavian catheter and right dialysis catheter remain in position. The heart is en larged. There are small bilateral pleural effusions. Monitor leads are on the chest wall. XR/XR chest 1V portable [id number] Impression: No change from yesterday's chest x-ray.
--- NOTE | 2021-03-02 07:25 | PM.PN ---
Subjective Subjective: Interval history: less swollen, dec sob. weak, pain, dec plts. not on dopamine Medications: Reviewed: Yes Medication Review Details: Current Medications Acetaminophen (Acetaminophen 325 Mg Tablet) 650 mg PO Q6H PRN PRN Reason: Mild/Mod Pain Or Temp >/= 101 Last Admin: 02/24/21 00:33 Dose: 650 mg Documented by: Albuterol/Ipratropium (Ipratropium-Albuterol 3 Ml Neb) 3 ml INHALATION QID.RESPIRATORY PRN PRN Reason: SHORTNESS OF BREATH Last Admin: 02/24/21 07:45 Dose: 3 ml Documented by: Aspirin (Aspirin 81 Mg Ec Tablet) 81 mg PO DAILY [facility] Last Admin: 03/01/21 09:29 Dose: 81 mg Documented by: Atorvastatin Calcium (Atorvastatin 40 Mg Tablet) 40 mg PO BEDTIME@1999 [facility] Last Admin: 03/01/21 20:25 Dose: 40 mg Documented by: Bumetanide (Bumetanide 0.25 Mg/Ml Sdv 10 Ml) 2 mg IV TID [facility] Last Admin: 03/01/21 20:25 Dose: 2 mg Documented by: Calcium Carbonate (Calcium Carbonate 500 Mg Chew Tablet) 1,000 mg PO BID [facility] Last Admin: 03/01/21 18:54 Dose: 1,000 mg Documented by: Diltiazem HCl (Diltiazem 60 Mg Tablet) 90 mg PO Q6H [facility] Last Admin: 03/02/21 02:08 Dose: 90 mg Documented by: Docusate Sodium (Docusate Sodium 100 Mg Capsule) 100 mg PO BID [facility] Last Admin: 03/01/21 17:48 Dose: Not Given Documented by: Albumin Human (Albumin) 25 gm in 100 mls @ 60 mls/hr IV DAILY [facility] Last Infusion: 03/01/21 10:40 Dose: Infused Documented by: Diltiazem HCl 125 mg/ Sodium (Chloride) 125 mls @ 0 mls/hr IV .Q0M [facility]; Protocol Last Titration: 03/01/21 06:45 Dose: Infused Documented by: Dopamine HCl/Dextrose (Intropin Drip) 400 mg in 250 mls @ 13.013 mls/hr IV PRN [facility]; Protocol Last Titration: 03/01/21 17:55 Dose: 0 mcg/kg/min, 0 mls/hr Documented by: Vancomycin HCl 1,000 mg/ (Sodium Chloride) 250 mls @ 250 mls/hr IV MoWeFr [facility] Last Infusion: 03/01/21 17:55 Dose: Infused Documented by: Lactulose (Lactulose Oral Liq 20 Gm/30 Ml Udc) 20 gm PO Q12H PRN PRN Reason: consitpation Lorazepam (Lorazepam 2 Mg/Ml Inj 1 Ml) 0.5 mg IVP Q6H PRN PRN Reason: ANXIETY Magnesium Oxide (Magnesium Oxide 400 Mg Tablet) 400 mg PO ONCE [facility] Metoprolol Tartrate (Metoprolol Tartrate 1 Mg/1 Ml Sdv 5 Ml) 5 mg IV Q4H PRN PRN Reason: tachycardia Midodrine (Midodrine 5 Mg Tablet) 10 mg PO QID [facility] Last Admin: 03/01/21 20:26 Dose: 10 mg Documented by: Morphine Sulfate (Morphine 4 Mg/Ml Sdv 1 Ml) 1 mg IVP Q4H PRN PRN Reason: SEVERE PAIN Last Admin: 02/25/21 12:06 Dose: 1 mg Documented by: Naloxone HCl (Naloxone 0.4 Mg/Ml Sdv) 0.1 mg IVP Q2M PRN PRN Reason: OPIATERV Ondansetron HCl (Ondansetron 2 Mg/Ml Sdv 2 Ml) 4 mg IVP Q8H PRN PRN Reason: vomiting, or N/V if npo Last Admin: 02/25/21 09:38 Dose: 4 mg Documented by: Polyethylene Glycol (Polyethylene Glycol 3350 Pkt 17 Gm) 17 gm PO DAILY [facility] Last Admin: 03/01/21 09:29 Dose: 17 gm Documented by: Sevelamer Carbonate (Sevelamer 800 Mg Tablet) 800 mg PO DAILY@1700 [facility] Last Admin: 03/01/21 16:22 Dose: 800 mg Documented by: Sucralfate (Sucralfate 1 Gm Tablet) 1 gm PO BID@0800,2000 [facility] Last Admin: 03/01/21 20:25 Dose: 1 gm Documented by: Vitals/I&O/Wt Last Vital Signs Temp 96.2 F L 03/01/21 16:00 Pulse 82 03/02/21 06:00 Resp 15 03/02/21 06:00 BP 132/108 03/02/21 06:00 Pulse Ox 90 03/02/21 06:00 03/01/21 03/02/21 03/02/21 22:59 06:59 14:59 Intake Total 386.79 / 742.293 Output Total 50 / 50 Balance 336.79 / 692.293 Weight last 48 hrs Weight 67.585 kg Weight 68.991 kg Physical Exam Narrative: EXAM NARRATIVE: elderly lady in bed NC02- uncomfortable vs noted - a fib w/ HR in 90's - bp improved heent- nc/at, eomi, anicteric neck supple lungs dull bases and crackles heart- irreg irreg, +Systolic murmur abd soft, nt, nd, +BS ext b/l edema skin red by ankle large ecchymosis by Rt ACW tuneled catheter and down rt arm neuro- a,a, o x 2+ + bailey catheter Urinary Catheter Management^: Bailey: Cath Placed During This Visit: yes Reason for Continuing Indwelling Catheter: Accurate Measurement of Urinary Output in Critically Ill Patients Urinary Catheter Date of Insertion: 02/17/21 Urinary Catheter Time of Insertion: 14:30 Data : 03/02/21 04:55 03/02/21 04:55 Micro: Microbiology 02/25/21 11:30 Fungal Smear - Preliminary Pleural Fluid 02/25/21 11:30 Gram Stain - Final Pleural Fluid Anaerobic Culture - Preliminary Body Fluid Culture - Final A&P Additional A&P Information 1. Renal Failure CKD with SHAQUILLE. likely hemodynamically mediated, CRS, pre-renal Given oliguria in response to diuretics in the setting of hypervolemia - pt started HD last 2 days - Dr. Virgen placed a dialysis line on 02/27/21 -she required dopamine on dialysis on 02/28 -last night required dopa for a couple of hours post HD - check ldh = 215, retic count, haptoglobin- review smear- ensure not TTP/HUS or MAHA -HD today for 2 hrs for SUF Strict Is and Os Avoid nephrotoxins -may d/c bailey 2. hyponatremia improving- Q SIADH from lung mass. or from SHAQUILLE or from CHF 3. a fib -HR improved- on cardizem. -bnp improving to 8074 4. thrombocytopenia- see above- concern for ERIC- we are not using heparin w/ dialysis - however has heparin lock in dialysis catheter- will stop all heparin -ldh 215 -await retic count, haptoglobin. no schistocytes noted. Dr. Long Quintero reviewed w/ heme - q abx related- changed per medicine -consider agatraban 5. Lung mass s/p thoracentesis; pathology pending indeterminate mass in kidney noted Mgmt per pulm 6. Pneumonia Combo Abx on board 7. anemia- from SHAQUILLE, lung mass, and bleed s/p dialysis catheter- hgb improved s/p 2 u prbc tx - dropping again 8. acid/ base status- in balance 9. leukocytosis improving 10. phos improved -vit d total= 33 -pth 147 -monitor Patient seen and examined via telemedicine, with the assistance of the bedside RN > 25 min spent in evaluation and mgmt of patient Attestations Medical Necessity Statement*: shaquille, thrombocytopenia Time Spent in Patient Care: 16 - 35 minutes Coding Level of Care Code Acute Supervisor [employer] for Gaby Curry
[2021-03-02 07:52] LABS: Reticulocyte % 0.5 % (0.5-2.0)
--- NOTE | 2021-03-02 08:11 | PC.NURSE ---
Dr Quintero in room assessing pt
--- NOTE | 2021-03-02 09:02 | P.PN_ITS ---
Subjective Subjective: Interval history: Patient is not feeling well today. Generalized weakness and shortness of breath Vitals/I&O/Wt Last Vital Signs Temp 97.7 F 03/02/21 08:00 Pulse 78 03/02/21 08:00 Resp 12 03/02/21 08:00 BP 133/44 03/02/21 08:00 Pulse Ox 99 03/02/21 08:00 03/01/21 03/02/21 03/02/21 22:59 06:59 14:59 Intake Total 386.79 / 742.293 Output Total 50 / 50 Balance 336.79 / 692.293 Weight last 48 hrs Weight 149 lb Weight 152 lb 1.6 oz Physical Exam Narrative: EXAM NARRATIVE: GENERAL: overweight elderly woman in no acute distress HEENT: Extraocular movement intact. No icterus. +pallor NECK: + JVD , No masses CARDIOVASCULAR SYSTEM: S1-S2 irregular. No S3 or S4 present. systolic murmur + RESPIRATORY SYSTEM: Decreased breath sounds at bases. + crakles. ABDOMEN: Soft, nontender and obese. Normal bowel sounds present. EXTREMITIES: No cyanosis. 1-2+ edema in legs. legs pretty tender to touch HISTORIC SITES REGISTRAR: Patient is alert oriented ?3. No focal neurological deficits. SKIN: Normal turgor and temperature. 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 -She is on bumex -On bumex Status: Chronic Qualifiers: Heart failure type: systolic Heart failure chronicity: acute on chronic Qualified Code(s): I50.23 - Acute on chronic systolic (congestive) heart failure (2) Acute kidney injury superimposed on chronic kidney disease: SHAQUILLE on CKD stage 4 Status: Acute (3) Atrial fibrillation with rapid ventricular response: Patient on PO cardizem, Heart rate is mostly controlled. Status: Acute (4) Elevated troponin: Status: Acute (5) Anemia: Hgb dropped significantly. Blood transfusion as needed. Patient has thrombocytopenia as well. Work up per primary team Status: Acute Qualifiers: Anemia type: due to chronic kidney disease Chronic kidney disease stage: stage 4 (severe) Qualified Code(s): N18.4 - Chronic kidney disease, stage 4 (severe); D63.1 - Anemia in chronic kidney disease Additional A&P Information Right upper lung spiculated mass with cavitation: concern for malignancy Right upper lung PNA: On antibiotics per primary team (Sputum + MRSA) MRSA UTI Left renal mass Anemia H/O UGIB Hyponatremia Hypomagnesmia : replaced NSVT on telemetry Moderate left and small right pleural effusion Small pericardial effusion on CT chest MIld Pulmonary HTN Thank you for allowing me to participate in patient's care. Please fell free to call with questions or concerns. Attestations Medical Necessity Statement*: Care expected to cross 2 midnights. Coding Level of Care Code Acute Business Machine Mechanic for Gaby Curry Diagnoses CHF (congestive heart failure) I50.23 Heart failure type: systolic Heart failure chronicity: acute on chronic Acute kidney injury superimposed on chronic kidney disease N17.9; N18.9 Atrial fibrillation with rapid ventricular response I48.91 Elevated troponin R77.8 Anemia N18.4; D63.1 Anemia type: due to chronic kidney disease Chronic kidney disease stage: stage 4 (severe)
[2021-03-02 09:56] LABS: Gamma Glutamyl Transferase 111 U/L (5-36)
[2021-03-02] MEDS: bumetanide 0.25 mg/mL SDV 10 mL 2 MG IV ×2 (10:11→20:46)
[2021-03-02] MEDS: predniSONE 20 mg Tablet 70 MG PO ×2 (10:15→20:46)
[2021-03-02] MEDS: aspirin 81 mg EC Tablet PO (10:16)
[2021-03-02] MEDS: calcium carbonate 500 mg Chew Tablet 1000 MG PO ×2 (10:17→18:29)
[2021-03-02] MEDS: docusate sodium 100 mg Capsule PO ×2 (10:17→18:29)
[2021-03-02] MEDS: midodrine 5 mg TABLET 10 MG PO ×3 (10:17→20:45)
[2021-03-02] MEDS: sucralfate 1 gm Tablet PO ×2 (10:19→20:46)
[2021-03-02] MEDS: polyethylene glycol 3350 Pkt 17 gm PO (10:19)
--- NOTE | 2021-03-02 10:54 | PC.CHAP ---
Pastoral Care Encounter/Spiritual Assessment Type of Contact [] Declined display coordinator visit [] Patient/Family/Request visit [] Outpatient visit [] Follow-up visit [] Physician referral [] Code/Alert [x] Routine visit [] Staff referral [] Actively dying [x] Patient sleeping [] Family support [] [] Out of room [] Palliative care [] [] Receiving care in room [] Pre-surgical visit [] Trauma [] Long length of stay [x] ICU visit [] Other: Relational/Emotional Strength [] Patient feels connected with others/family/visitors/staff [] Distress [] Loneliness/isolation [] Abandonment Spirituality of Patient [] Person of Jalyn [] Attends Mu-Ism of their Jalyn [] Believes in Prayer [] Reads Bible or Nondenominational materials [] There are Spiritual issues to be addressed Low Heel Builder Interventions [x] Prayer [] Active listening [] Non-anxious presence [] Spiritual/emotional support [] Crisis/trauma care [] Spiritual counseling [] Bereavement support [] Provided bereavement packet [] Provided Bible/devotional materials [] Provided toy/stuffed animal, coloring book to patient or family member [] Provided Communion [] Anointing/[place] [] Salvation [x] Completed spiritual assessment [] Other: Impact on Illness or Injury [] Angry [] Fearful [] Anxious [] Often cries [] Exhaustion [] Unable to work [] Unable to attend confucianism [] Unable to walk/stand [] Unable to read [] Unable to drive [] Unable to eat/drink [] Unable to sleep [] Unable to be with family [] Patient intubated [] Other: Summary Time spent with patient
--- NOTE | 2021-03-02 12:40 | PC.SOCIAL ---
IMM Update Pg.2 of [facility] updated and reviewed with patient who verbalized understanding, copy provided.
[2021-03-02 13:00] LABS: Glucose Urine UA Norm (Normal); Ketones Urine 1+ (Negative); Protein Urine 2+ (Negative); Specific Gravity, Urine 1.015 (1.005-1.030); Urine Appearance Turbid (CLEAR); Urine Color Brown (Yellow); pH Urine 6.5 (5-7)
[2021-03-02 13:01] LABS: Add Urine Microscopic? YES; Bilirubin Urine 1+ (Negative); Blood Urine 3+ (Negative); Leukocyte Esterase Urine 2+ (Negative); Nitrate Urine Negative (Negative); Urobilinogen Urine 4 mg/dL (Negative)
[2021-03-02 13:07] LABS: ABG PCO2 46.7 mmHg (35-45); ABG PH Result 7.37 (7.35-7.45); Alveolar-Arterial Oxygen Gradi 1.9 mmHg (5-10); Arterial Blood Gas Hematocrit 25.8 % (37-47); Blood Gas Allen Test Pos; Blood Gas Sample Site Radial, left; Blood Gas Sample Type Arterial; Carboxyhemoglobin 1.5 %THgb (0.4-20.1); HCO3 ABG 26.7 mmol/L (22-26); HGB O2 Sat 93.8 % (95-100); Ionized Calcium Level - ABG 1.2 mmol/L (1.1-1.4); Methemoglobin 1.3 % (0.4-1.5); Oxygen Device NC; Oxygen Saturation ABG 96.4; PO2 ABG 77.3 mmHg (80.0-100.0); Potassium Level - ABG 3.6 mmol/L (3.5-5.0); Total Hemoglobin 8.4 g/dL (12-16)
[2021-03-02 13:09] LABS: RBC Urine TOO NUMEROUS TO CNT /hpf (0-2)
[2021-03-02 13:10] LABS: Add Urine Culture? Yes; Bacteria Urine 4+ /hpf; Squamous Epithelial Cell Urine 0-4 /hpf (0-5)
--- NOTE | 2021-03-02 17:38 | PM.PN ---
Subjective Subjective: Interval history: Patient was seen this morning, she tells me that she just does not feel well this morning, yesterday she did have a good appetite, this morning she is barely eating anything, she does not have any strength she tells me, is quite withdrawn, she still on 4 to 5 L, denies any fevers, denies any shortness of breath, she did tolerate dialysis well yesterday, no cough In the afternoon, patient oxygen requirements have increased to 9 L, improving pulmonary vascular congestion, she is getting dialysis, possible aspiration event, will place on aspiration precautions start Primaxin Vitals/I&O/Wt Last Vital Signs Temp 98.1 F 03/02/21 13:15 Pulse 73 03/02/21 15:00 Resp 10 L 03/02/21 15:00 BP 122/57 03/02/21 15:00 Pulse Ox 99 03/02/21 15:00 03/02/21 03/02/21 03/02/21 06:59 14:59 22:59 Intake Total 120 / 120 Output Total 50 / 50 Balance 70 / 70 Weight last 48 hrs Weight 67.585 kg Weight 68.991 kg Physical Exam Const: COMMON NORMALS: no acute distress and patient oriented x3 GENERAL APPEARANCE: ill appearing and frail appearing ORIENTATION/CONSCIOUSNESS: Yes awake, Yes oriented to person, Yes oriented to place and Yes oriented to time Chest: OTHER: Right chest, dialysis catheter placed, right internal jugular Left, subclavian line Does have multiple areas of bruising along the chest, no active bleeding Resp: COMMON NORMALS: normal respiratory effort, No retractions and No use of accessory muscles AUSCULTATION: crackles OTHER: Decreased aeration bilateral lower lung méndez Cardio: COMMON NORMALS: regular rate, S1 normal heart sound present, S2 normal heart sound present, No gallops present (Cardio), No clicks present (Cardio) and No murmurs present (Cardio) RATE: regular rate RHYTHM: abnormal rhythm HEART SOUNDS: S1 normal heart sound present, S2 normal heart sound present and no murmurs GI: COMMON NORMALS: Normal to inspection, nondistended, normoactive bowel sounds present, Soft to palpation, non-tender and No hepatosplenomegaly present PALPATION: Yes Soft to palpation and Yes No hepatosplenomegaly present : OTHER: Escobar catheter in place Extremity: COMMON NORMALS: normal to inspection, full ROM, no calf tenderness and no pedal edema NARRATIVE EXTREMITY EXAM: 1+ pitting edema bilaterally, generalized anasarca OTHER: 1+ pitting edema Neuro: COMMON NORMALS: patient oriented x3 SENSORIUM/ORIENTATION: Yes oriented to person, Yes oriented to place and Yes oriented to time Psych: COMMON NORMALS: mental status grossly normal and cooperative Skin: NARRATIVE SKIN EXAM: Generalized anasarca Urinary Catheter Management^: Escobar: Cath Placed During This Visit: yes Reason for Continuing Indwelling Catheter: Accurate Measurement of Urinary Output in Critically Ill Patients Urinary Catheter Date of Insertion: 02/17/21 Urinary Catheter Time of Insertion: 14:30 Data : 03/02/21 04:55 03/02/21 04:55 Micro: Microbiology 02/25/21 11:30 Gram Stain - Final Pleural Fluid Anaerobic Culture - Preliminary Body Fluid Culture - Final 02/25/21 11:30 Fungal Smear - Preliminary Pleural Fluid A&P Assessment and plan (1) Left renal mass: -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 -Known since previous admissions, has a as of yet to follow-up with outpatient urology -I did discuss with urology, they felt that this likely looks like a benign cyst on imaging, however will need outpatient follow-up Status: Acute (2) Right upper lobe pneumonia: on broad-spectrum antibiotic therapy, on 4 L, sputum cultures grew MRSA, discontinue Primaxin, switch to vancomycin Status: Acute (3) Acute respiratory failure with hypoxia: -Secondary to right upper lobe pneumonia/left upper and left lower lobe, systolic and diastolic CHF exacerbation, A. fib with RVR, cavitary lung mass, bilateral pleural effusions -Echocardiogram from January 06, 2021 shows ejection fraction of 45%, global hypokinesis, grade 4 out of 4 diastolic dysfunction, severely elevated filling pressures, moderate pulmonary hypertension, right ventricular systolic pressure 52.7 mmHg - anterior segment right upper lobe spiculated mass with evidence of early cavitation dimensions approximately 37 mm x 25 mm x 34 mm. Concern for primary lung carcinoma. Moderate left pleural and small right pleural effusion -Status post thoracocentesis, 1200 mL drained on the left, seems transudative, pathology pending, Gram stain no organisms, moderate white blood cells -On chest x-ray yesterday, had a small left apical pneumothorax, no respiratory distress, no chest pain complaints, chest x-ray this morning does not clinically show significant pneumothorax -Chest x-ray shows improved pulmonary vascular congestion -Still has has anasarca, 1+ pitting edema, chest x-ray does show improved pulmonary vascular congestion, crackles on exam -Did tolerate dialysis well yesterday, will try another dialysis session today with dopamine, she continues to have generalized anasarca, -This morning she just feels ill, poor appetite, she is quite withdrawn, in the afternoon she is requiring up to 9 L Plan: -Continue to monitor in ICU -continue vancomycin, renal dose, monitor respiratory status closely, DuoNeb, oxygen therapy, flutter valve, incentive spirometer, -Due to concerns for aspiration, add Primaxin, aspiration precautions - blood cultures negative, urine bacterial antigens negative, MRSA in sputum culture, urine culture positive for staph aureus - Cardizem 90 every 6 hours -Dopamine drip to maintain MAP greater than 75 during dialysis -Plan on dialysis today -[place] response to Bumex therapy -Right tunneled dialysis catheter in place -Left subclavian line in place -Did have a small left apical pneumothorax seen on chest x-ray on 02/28/2020 -For now anticoagulation is contraindicated given hemoptysis, GI bleed, Hemoccult positive stools -Hemoglobin 8.2, status post 2 units PRBC -Platelet count 23,000, likely ERIC, has not received any heparin products throughout her hospitalization, except during dialysis catheter placement during dialysis. No overt signs of bleeding, but does have significant bruising will do HIT panel, peripheral smear does not show any pseudoclumping, stop Zyvox monitor platelet count, monitor for bleeding, avoid heparin products, can give agrotoban during dialysis, give 1 unit of platelets, recheck CBC at 6 PM, 70 mg of prednisone daily -Na 134, likely secondary to poor oral intake, will receive dialysis -PT OT, speech therapy -Has protein calorie malnutrition, hypoalbuminemia, likely contributing to anasarca, will have this speech therapy and nutrition's to see patient -Severe deconditioning, muscle wasting, nurses to get up into a chair -SCDs for DVT prophylaxis not placed due to severe lower extremity pain, anticoagulation contraindicated given GI bleed, hemoptysis, patient understands the risks of not having her on anticoagulation and SCDs, risk of DVTs and PEs, voiced understanding, all questions answered, declined SCDs, anticoagulation contraindicated due to anemia, concerns for lower GI bleed, Hemoccult positive stools, bilateral lower extremity ultrasounds negative for DVT, continue to monitor -Unfortunately continues to have a poor appetite, decreased mobility -Full code -Patient is healthcare power of upholsterer helper is her brother Nestor, information is in the chart -Overall she has a poor performance status -Prognosis is guarded plan for today add Primaxin, will have hemodialysis, monitor platelet count, transfuse platelet count, give prednisone, monitor clinical status, will have pulmonary team assessed patient Status: Acute (4) Paroxysmal A-fib: Cardiology on consult Status: Acute (5) Anemia: Continue to monitor, likely multifactorial from acute renal failure, Hemoccult positive stool slow GI bleed Status: Acute Qualifiers: Anemia type: due to chronic kidney disease Chronic kidney disease stage: stage 4 (severe) Qualified Code(s): N18.4 - Chronic kidney disease, stage 4 (severe); D63.1 - Anemia in chronic kidney disease (6) Hematochezia due to medication: Status: Acute (7) Acute kidney injury superimposed on chronic kidney disease: Status: Acute (8) CHF (congestive heart failure): Status: Chronic Qualifiers: Heart failure type: systolic Heart failure chronicity: acute on chronic Qualified Code(s): I50.23 - Acute on chronic systolic (congestive) heart failure (9) UTI (urinary tract infection): -MRSA UTI, with Escobar catheter in place, on Zyvox Status: Acute Qualifiers: Urinary tract infection type: site unspecified Hematuria presence: without hematuria Qualified Code(s): N39.0 - Urinary tract infection, site not specified (10) 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 -Pulmonary on consult -Discussed options including biopsy, chemo, surgery, hospice -Wants to pursue treatment, pursue biopsy if needed, pursue chemo -Thoracocentesis pathology, no malignant cells seen -Pulmonary on consult Status: Acute (11) Bilateral pleural effusion: -Will undergo thoracocentesis, also for cytology Status: Acute (12) Anasarca: Status: Acute (13) Protein calorie malnutrition: Status: Acute (14) Physical deconditioning: Status: Acute (15) Hypoalbuminemia: Status: Acute (16) Thrombocytopenia: Status: Acute (17) Pneumothorax on left: Status: Acute (18) Heparin induced thrombocytopenia: Status: Acute Additional A&P Information Plan for today increase diuretic therapy, monitor blood pressures, monitor heart rates, await family and patient's decision for dialysis, possibly require dialysis in the next 24-48 hrs., Attestations Medical Necessity Statement*: Patient requires hospitalization for acute respiratory failure secondary to fluid overload, pneumonia, squamous cell carcinoma, dialysis dependent, protein calorie malnutrition, physical deconditioning, heparin-induced thrombocytopenia, MRSA pneumonia, MRSA UTI Coding Level of Care Code Acute Unix Administrator for Chg Fwd Diagnoses Left renal mass N28.89 Right upper lobe pneumonia J18.9 Acute respiratory failure with hypoxia J96.01 Paroxysmal A-fib I48.0 Anemia N18.4; D63.1 Anemia type: due to chronic kidney disease Chronic kidney disease stage: stage 4 (severe) Hematochezia due to medication K92.1; T50.905A Acute kidney injury superimposed on chronic kidney disease N17.9; N18.9 CHF (congestive heart failure) I50.23 Heart failure type: systolic Heart failure chronicity: acute on chronic UTI (urinary tract infection) N39.0 Urinary tract infection type: site unspecified Hematuria presence: without hematuria 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 J98.4 Bilateral pleural effusion J90 Anasarca R60.1 Protein calorie malnutrition E46 Physical deconditioning R53.81 Hypoalbuminemia E88.09 Thrombocytopenia D69.6 Pneumothorax on left J93.9 Heparin induced thrombocytopenia D75.82
[2021-03-02 18:16] LABS: Basophils % 0.2 %; Hematocrit 26.6 % (37.0-47.0); Hemoglobin 8.4 g/dL (11.5-15.3); Lymphocytes # 0.6 10^3/uL (0.8-4.8); Lymphocytes % 5.3 %; Mean Corpuscular HGB Conc 31.6 g/dL (30.0-36.0); Mean Corpuscular Hemoglobin 28.3 pg (28.0-34.0); Mean Corpuscular Volume 89.6 fL (81-99); Mean Platelet Volume 11.3 fL (7.4-10.4); Monocytes # 0.1 10^3/uL (0.2-0.9); Monocytes % 0.7 %; Neutrophils % 93.4 %; Nucleated Red Blood Cells % 0 %; Red Blood Count 2.97 10^6/uL (4.1-5.3); Red Cell Distribution Width 18.1 % (12.1-15.1); White Blood Count 12.1 10^3/uL (4.0-10.0)
[2021-03-02 18:18] LABS: Platelet Count 23 10^3/cmm (130-400)
[2021-03-02] MEDS: vancomycin 1,000 MG in sodium chloride 0.9% 250 ML 250 MG IV (18:36)
[2021-03-02 18:39] LABS: Slide Review Slide Review Perform
--- NOTE | 2021-03-02 20:25 | PC.NURSE ---
RN updated MD Jayce management professional, as well as Leon HICKMAN via [facility] on estimated delay reported by lab for ordered 2 units of PLT's to be given. Lab estimated 3-4 hours before PLT's were to arrive from [facility]. No new orders were received at this time.
[2021-03-02] MEDS: atorvastatin 40 mg Tablet PO (20:46)
[2021-03-03] VITALS (20 sets, daily range): BP systolic 107–142; BP diastolic 43–103; PULSE 68–93; RESP 13–22; TEMP 36.4–36.6; O2SAT 91–99
[2021-03-03] MEDS: sodium chloride 0.9% (100 ml) 100 ML ×2 (01:10→04:56)
[2021-03-03] MEDS: morphine 4 mg/mL SDV 1 mL 1 MG IVP (02:06)
[2021-03-03] MEDS: dilTIAZem 60 mg Tablet 90 MG PO (02:08)
[2021-03-03 03:54] LABS: Basophils % 0.1 %; Lymphocytes # 0.6 10^3/uL (0.8-4.8); Lymphocytes % 7.3 %; Mean Corpuscular HGB Conc 31.5 g/dL (30.0-36.0); Mean Corpuscular Hemoglobin 28.3 pg (28.0-34.0); Mean Corpuscular Volume 89.8 fL (81-99); Mean Platelet Volume 12.5 fL (7.4-10.4); Monocytes # 0.1 10^3/uL (0.2-0.9); Neutrophils # 7.51 10^3/uL (1.8-7.7); Neutrophils % 91.2 %; Nucleated Red Blood Cells % 0 %; Red Blood Count 2.26 10^6/uL (4.1-5.3); Red Cell Distribution Width 18.1 % (12.1-15.1); White Blood Count 8.2 10^3/uL (4.0-10.0)
[2021-03-03 04:07] LABS: Hematocrit 20.3 % (37.0-47.0); Hemoglobin 6.4 g/dL (11.5-15.3); Platelet Count 17 10^3/cmm (130-400)
[2021-03-03 04:08] LABS: Slide Review Slide Review Perform
[2021-03-03 04:11] LABS: INR 1.37 (0.8-1.2)
[2021-03-03 04:16] LABS: Lactate (Lactic Acid level) 1.4 mmol/L (0.5-2.2)
[2021-03-03 04:26] LABS: Procalcitonin 0.47 ng/mL (0-0.5)
[2021-03-03 04:37] LABS: Alanine Aminotransferase < 5 U/L (0-33); Albumin Level 3.6 g/dL (3.5-5.2); Alkaline Phosphatase 219 IU/L (35-105); Anion Gap 13.1 (5-19); Aspartate Amino Transferase 18 U/L (0-32); Blood Urea Nitrogen 42 mg/dL (8-23); C Reactive Protein 9.4 mg/L (0.0-4.9); Calcium 8.2 mg/dL (8.5-10.5); Carbon Dioxide 27 mmol/L (22-29); Chloride 99 mmol/L (98-107); Globulin 1.8 g/dL (1.3-4.6); Glucose 144 mg/dL (65-115); Magnesium 1.9 mg/dL (1.7-2.3); Osmolality Calculated 293 mOsm/kg (285-295); Phosphorus 2.5 mg/dL (2.5-4.5); Potassium 4.1 mmol/L (3.5-5.1); Sodium 135 mmol/L (136-145); Total Bilirubin 1.9 mg/dL (0.15-1.2); Total Protein 5.4 g/dL (6.6-8.7)
[2021-03-03 04:45] LABS: NT Pro B Type Natriuretic Pept 9326 pg/mL (0-450)
--- NOTE | 2021-03-03 04:45 | PC.NURSE ---
Critical lab assessment reported to MD Jayce content manager of PLT and Hgb results. New orders received. RN contacted MD to update on estimated time frame for new ordered PLT unit, to arrive from outside facility. RN verbalized that PRBC unit would be given once ready from lab, while waiting in mean time.
--- NOTE | 2021-03-03 07:00 | US_ITS ---
WS: [id number] ULTRASOUND ABDOMEN LIMITED CLINICAL INFORMATION: RUQm liver, gallbladder COMPARISON: None. FINDINGS: Liver Size: Normal. Craniocaudal length: 13.1 cm. Echogenicity: Dense Surface nodularity: None. Mass (size and location): None. Bile ducts Intrahepatic ducts: Normal. Common bile duct diameter: 0.4 cm. Gallbladder Cholecystectomy Pancreas Normal as visualized. Right kidney: Normal. Hydronephrosis: None. Size: 9.9 cm x 4.9 cm x 5.4 cm. Abdominal aorta and IVC Visualized portions are normal. Ascites: Present. Small right pleural effusion. US/US abdomen limited [id number] IMPRESSION: 1. Diffuse infiltration liver. 2. Prior cholecystectomy. 3. No hydronephrosis in right kidney. 4. Small right pleural effusion with mild ascites.
--- NOTE | 2021-03-03 07:00 | XR_ITS ---
WS: [id number] Portable AP semiupright chest, 03/03/2021 Clinical Data: sob Comparison: Portable chest yesterday Findings: The pulmonary vascular congestion remains the same as do the bilateral pleural effusions. T he heart remains enlarged. The left subclavian catheter and right dialysis catheter remain in positio n. Monitor leads on the chest wall. XR/XR chest 1V portable [id number] Impression: No change in congestive heart failure from yesterday.
--- NOTE | 2021-03-03 07:51 | P.PN_ITS ---
Subjective Subjective: Interval history: bleeding, weak, sob, less swollen Medications: Reviewed: Yes Medication Review Details: Current Medications Acetaminophen (Acetaminophen 325 Mg Tablet) 650 mg PO Q6H PRN PRN Reason: Mild/Mod Pain Or Temp >/= 101 Last Admin: 02/24/21 00:33 Dose: 650 mg Documented by: Albuterol/Ipratropium (Ipratropium-Albuterol 3 Ml Neb) 3 ml INHALATION QID.R ESPIRATORY PRN PRN Reason: SHORTNESS OF BREATH Last Admin: 02/24/21 07:45 Dose: 3 ml Documented by: Aspirin (Aspirin 81 Mg Ec Tablet) 81 mg PO DAILY [facility] Last Admin: 03/02/21 10:16 Dose: 81 mg Documented by: Atorvastatin Calcium (Atorvastatin 40 Mg Tablet) 40 mg PO BEDTIME@1999 [facility] Last Admin: 03/02/21 20:46 Dose: 40 mg Documented by: Bumetanide (Bumetanide 0.25 Mg/Ml Sdv 10 Ml) 2 mg IV TID [facility] Last Admin: 03/02/21 20:46 Dose: 2 mg Documented by: Calcium Carbonate (Calcium Carbonate 500 Mg Chew Tablet) 1,000 mg PO BID [facility] Last Admin: 03/02/21 18:29 Dose: 1,000 mg Documented by: Diltiazem HCl (Diltiazem 60 Mg Tablet) 90 mg PO Q6H [facility] Last Admin: 03/03/21 02:08 Dose: 90 mg Documented by: Docusate Sodium (Docusate Sodium 100 Mg Capsule) 100 mg PO BID [facility] Last Admin: 03/02/21 18:29 Dose: 100 mg Documented by: Albumin Human (Albumin) 25 gm in 100 mls @ 60 mls/hr IV DAILY [facility] Last Admin: 03/02/21 10:16 Dose: 60 mls/hr Documented by: Diltiazem HCl 125 mg/ Sodium (Chloride) 125 mls @ 0 mls/hr IV .Q0M [facility]; Protocol Last Titration: 03/01/21 06:45 Dose: Infused Documented by: Dopamine HCl/Dextrose (Intropin Drip) 400 mg in 250 mls @ 13.013 mls/hr IV PRN [facility]; Protocol Last Titration: 03/01/21 17:55 Dose: 0 mcg/kg/min, 0 mls/hr Documented by: Vancomycin HCl 1,000 mg/ (Sodium Chloride) 250 mls @ 250 mls/hr IV MoWeFr [facility] Last Infusion: 03/02/21 20:03 Dose: Infused Documented by: Imipenem/Cilastatin Sodium 250 (mg/ Sodium Chloride) 100 mls @ 200 mls/hr IV Q12H [facility]; Protocol Last Infusion: 03/03/21 01:19 Dose: Infused Documented by: Lactulose (Lactulose Oral Liq 20 Gm/30 Ml Udc) 20 gm PO Q12H PRN PRN Reason: consitpation Lorazepam (Lorazepam 2 Mg/Ml Inj 1 Ml) 0.5 mg IVP Q6H PRN PRN Reason: ANXIETY Magnesium Oxide (Magnesium Oxide 400 Mg Tablet) 400 mg PO ONCE [facility] Metoprolol Tartrate (Metoprolol Tartrate 1 Mg/1 Ml Sdv 5 Ml) 5 mg IV Q4H PRN PRN Reason: tachycardia Midodrine (Midodrine 5 Mg Tablet) 10 mg PO QID [facility] Last Admin: 03/02/21 20:45 Dose: 10 mg Documented by: Morphine Sulfate (Morphine 4 Mg/Ml Sdv 1 Ml) 1 mg IVP Q4H PRN PRN Reason: SEVERE PAIN Last Admin: 03/03/21 02:06 Dose: 1 mg Documented by: Naloxone HCl (Naloxone 0.4 Mg/Ml Sdv) 0.1 mg IVP Q2M PRN PRN Reason: OPIATERV Ondansetron HCl (Ondansetron 2 Mg/Ml Sdv 2 Ml) 4 mg IVP Q8H PRN PRN Reason: vomiting, or N/V if npo Last Admin: 02/25/21 09:38 Dose: 4 mg Documented by: Polyethylene Glycol (Polyethylene Glycol 3350 Pkt 17 Gm) 17 gm PO DAILY [facility] Last Admin: 03/02/21 10:19 Dose: 17 gm Documented by: Prednisone (Prednisone 20 Mg Tablet) 70 mg PO DAILY [facility] Last Admin: 03/02/21 20:46 Dose: 70 mg Documented by: Sucralfate (Sucralfate 1 Gm Tablet) 1 gm PO BID@0800,1999 [facility] Last Admin: 03/02/21 20:46 Dose: 1 gm Documented by: Vitals/I&O/Wt Last Vital Signs Temp 97.5 F L 03/03/21 06:00 Pulse 79 03/03/21 06:00 Resp 13 03/03/21 06:00 BP 127/74 03/03/21 06:00 Pulse Ox 98 03/03/21 06:00 03/02/21 03/03/21 03/03/21 22:59 06:59 14:59 Intake Total 864 / 984 1331 / 2315 Output Total 50 / 100 Balance 864 / 934 1281 / 2215 Weight last 48 hrs Weight 68.243 kg Weight 67.585 kg Physical Exam Narrative: EXAM NARRATIVE: elderly lady in bed NC02- uncomfortable vs noted - a fib w/ HR controlled - bp improved heent- nc/at, eomi, anicteric neck supple lungs dull bases and crackles heart- irreg irreg, +Systolic murmur abd soft, nt, nd, +BS ext b/l edema skin red by ankle large ecchymosis by Rt ACW tuneled catheter and down rt arm and chest wall neuro- a,a, o x 2+ + bailey catheter Urinary Catheter Management^: Bailey: Cath Placed During This Visit: yes Reason for Continuing Indwelling Catheter: Accurate Measurement of Urinary Output in Critically Ill Patients Urinary Catheter Date of Insertion: 02/17/21 Urinary Catheter Time of Insertion: 14:30 Data : 03/03/21 03:40 03/03/21 03:40 Micro: Microbiology 02/25/21 11:30 Gram Stain - Final Pleural Fluid Anaerobic Culture - Preliminary Body Fluid Culture - Final A&P Additional A&P Information 1. Renal Failure CKD with SHAQUILLE. likely hemodynamically mediated, CRS, pre-renal Given oliguria in response to diuretics in the setting of hypervolemia - pt started HD last 2 days - Dr. Virgen placed a dialysis line on 02/27/21 -she required dopamine on dialysis on 02/28 and after dialysis last 2 nights - ldh = 215, retic count, haptoglobin= 44- review smear- ensure not TTP/HUS or MAHA -HD likely later after blood products and maybe CTA -for 3 hrs for SUF of 1.5- 2l, 3k bath Strict Is and Os Avoid nephrotoxins -may d/c bailey 2. hyponatremia improving- Q SIADH from lung mass. or from SHAQUILLE or from CHF 3. a fib -HR improved- on cardizem. -bnp improving to 8074 4. thrombocytopenia- see above- concern for ERIC- we are not using heparin w/ dialysis - however has heparin lock in dialysis catheter- will stop all heparin -ldh 215, normal haptoglobin -await retic count no schistocytes noted. Dr. Long Quintero reviewed w/ heme - q abx related- changed per medicine -consider agatraban 5. Lung mass s/p thoracentesis; pathology pending indeterminate mass in kidney noted Mgmt per pulm 6. Pneumonia Combo Abx on board 7. anemia- from SHAQUILLE, lung mass, and bleed s/p dialysis catheter- hgb improved s/p 2 u prbc tx - dropped again- can get CTA of neck/ chest/ abd/ pelvis- though will lower her chance of renal recovery 8. acid/ base status- in balance 9. leukocytosis improving 10. phos improved -vit d total= 33 -pth 147 -monitor Patient seen and examined via telemedicine, with the assistance of the bedside RN > 30 min spent in evaluation and mgmt of patient discussed w/ Dr. Long Quintero Attestations Medical Necessity Statement*: shaquille, thrombocytopenia, anemia Time Spent in Patient Care: 16 - 35 minutes Coding Level of Care Code Acute Quality Assurance Monitor Chassis for Chg Patricio
--- NOTE | 2021-03-03 07:53 | CT_ITS ---
WS: [id number] CT ABDOMEN PELVIS TECHNIQUE: Contrast-enhanced CT of the abdomen and pelvis with coronal and sagittal reformatted image s. CLINICAL INFORMATION: r/o bleed COMPARISON: CT January 30, 2021 DLP: 1209.[address] scans at [facility] use at least one of these dose optimization techniques: automat ed exposure control; mA and/or kV adjustment per patient size (includes targeted exams where dose is matched to clinical indication); or iterative reconstruction. FINDINGS: Mild diffuse fatty infiltration of the liver. Normal portal vein and splenic vein. Splenic granulomas . Moderate esophageal hiatal hernia. Small right greater than left pleural effusions. Compressive ate lectasis in the lung bases. Minimal perihepatic ascites. Small amount of ascites in the pelvis. Escobar catheter. Mild fatty atrophy of the pancreas. Splenic artery calcification. Normal caliber abdominal aorta with dense calcification. Diffuse body wall anasarca. Sigmoid diverticulosis with mild diffuse thickening of the sigmoid colon. Recommend correlation for diverticulitis. No evidence of small or large bowel obstruction. Adrenal glands are normal. Normal renal parenchymal enhancement. No hydronephrosis. Left renal cyst m easuring 4.3 x 4.1 CCM. Smaller right renal cyst. CT/CT abdomen pelvis w con* [id number] IMPRESSION: 1. Mild diffuse fatty infiltration of the liver. 2. Small bilateral pleural effusions with compressive atelectasis in the lung bases. 3. Gallbladder appears to be contracted with multiple large gallstones. This i s similar in appearance to January 30, 2021. Recommend correlation with surgical hi story. This will be reevaluated with ultrasound. 4. Sigmoid diverticulosis with mild thickening. 5. Recommend correlation for diverticulitis. 6. Escobar catheter. 7. No drainable ascites. Minimal perihepatic and pelvic ascites. 8. Mid pole simple left renal cyst measuring 4.3 x 4.1 cm
--- NOTE | 2021-03-03 08:24 | PC.NURSE ---
platelet infusion cancelled per dr. tavares.
[2021-03-03 08:31] LABS: Partial Thromboplastin Time 32.4 SECONDS (23.9-36.7)
[2021-03-03 08:34] LABS: D Dimer 2.82 ug/mIFEU (0-0.59)
[2021-03-03 08:36] LABS: Fibrinogen 167 mg/dL (174-498)
[2021-03-03 08:37] LABS: INR 1.46 (0.8-1.2)
[2021-03-03] MEDS: iodixanol 320 mg/mL 100mL Btl IV (09:05)
--- NOTE | 2021-03-03 09:09 | PC.CHAP ---
Pastoral Care Encounter/Spiritual Assessment Type of Contact [] Declined swatch maker visit [] Patient/Family/Request visit [] Outpatient visit [] Follow-up visit [] Physician referral [] Code/Alert [x] Routine visit [] Staff referral [] Actively dying [] Patient sleeping [] Family support [] [] Out of room [] Palliative care [] [x] Receiving care in room [] Pre-surgical visit [] Trauma [] Long length of stay [x] ICU visit [x] Other: being prepared for transport to lab for testing... Relational/Emotional Strength [] Patient feels connected with others/family/visitors/staff [] Distress [] Loneliness/isolation [] Abandonment Spirituality of Patient [x] Person of Jalyn [] Attends Moravian of their Jalyn [] Believes in Prayer [] Reads Bible or Taoism materials [] There are Spiritual issues to be addressed Telephone Ad Taker Interventions [x] Prayer [] Active listening [] Non-anxious presence [] Spiritual/emotional support [] Crisis/trauma care [] Spiritual counseling [] Bereavement support [] Provided bereavement packet [] Provided Bible/devotional materials [] Provided toy/stuffed animal, coloring book to patient or family member [] Provided Communion [] Anointing/[place] [] Salvation [x] Completed spiritual assessment [] Other: Impact on Illness or Injury [] Angry [] Fearful [] Anxious [] Often cries [] Exhaustion [] Unable to work [] Unable to attend mormon [] Unable to walk/stand [] Unable to read [] Unable to drive [] Unable to eat/drink [] Unable to sleep [] Unable to be with family [] Patient intubated [] Other: Summary patient had peace and aware of what was happening.. Time spent with patient 5 min
[2021-03-03 09:35] LABS: ABG PCO2 44.8 mmHg (35-45); ABG PH Result 7.37 (7.35-7.45); Arterial Blood Gas Hematocrit 27.4 % (37-47); Base Excess ABG 0.5 mmol/L (-2.0-2.0); Blood Gas Allen Test Pos; Blood Gas Operator Identificat CAK; Blood Gas Sample Site Radial, left; Blood Gas Sample Type Arterial; Oxygen Device NC; PO2 ABG 62.3 mmHg (80.0-100.0)
--- NOTE | 2021-03-03 09:35 | PC.NURSE ---
back from ct. jo escalante. placed [id number] nrb there d/t sat down or poor reading. then back to n.c. abgs drawn.
--- NOTE | 2021-03-03 09:41 | PC.NURSE ---
some meds ordered not given per physician
[2021-03-03 10:14] LABS: SARS Covid-2 Antigen Negative (Negative)
--- NOTE | 2021-03-03 11:21 | PC.OT ---
Patient discharging from occupational therapy services as she is on comfort care measures
--- NOTE | 2021-03-03 12:22 | PC.NURSE ---
transferred to med surg. per bed. daughter at bedside. comfort care
[2021-03-03 15:58] LABS: Heparin Induced Platelet AB NEGATIVE (NEGATIVE)
--- NOTE | 2021-03-03 16:42 | P.PN_ITS ---
Subjective Subjective: Interval history: -This morning patient was examined, she continues to feel weak, fatigued, tired, poor appetite remains bedbound, she does have significant bruising over her chest, no evidence of clotting, no evidence of bleeding, no headache, blurry vision, no nausea, no vomiting, she is a bit short of breath, she is now requiring up to 10 L -Review of patient's labs shows that her hemoglobin 6.4, her platelet count 17,000, she did receive 1 unit PRBC this morning, 1 unit of platelet this morning -Her hemolytic labs did not show significant hemolysis, her peripheral smear did not show any significant evidence of hemolysis, her D-dimer is elevated, FDP is positive, some possible component of DIC -I discussed the case with Dr. 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 -Unfortunately giving patient platelets does carry risk of thrombosis, unless she is actively bleeding, -I have done a CAT scan, no evidence of retroperitoneal bleed currently -I did do a CT scan with contrast, advised patient that there is a risk of kidney damage with giving contrast, but as we are concerned for bleeding I think that the risks outweigh the benefits, advised risk and benefits, which yesterday, all questions answered, agreed to proceed -Nonetheless given her platelets does carry a significant risk of thrombosis -And giving her a greater than given her history of GI bleeds, Hemoccult positive stools, anemia does carry the risk of significant bleeding, hemorrhage, GI bleed -Unfortunately this is a difficult situation -We feel that patient needs a multidisciplinary team for her anemia, thrombocytopenia or hepatitis thrombocytopenia, -In addition she needs a multidisciplinary team to perform a bone marrow biopsy, if the results need to be available immediately, here in our hospital it can take up to week to get the results -In addition she does need urgent plasmapheresis, along with a multidisciplinary team, a tertiary level center -In addition her last 2 rounds of dialysis with better, she did well with dop amine, but it still difficult to get adequate amount of fluid off of her she continues to have generalized anasarca, after requirements have increased, continues to have evidence of pulmonary edema, bilateral extremity edema, I feel that she would be better served its CRRT, that can only be done in nutrition level center -I discussed with patient that I feel that she would be better served in a [facility] level center like [facility] [facility] -Patient says that she wants to talk to her son and her daughter -Early in the morning I had a meeting with patient's son Edwin, daughter, and patient -I advised that currently patient status is stable but critical -I discussed her poor functional status and as she remains bedbound, poor appetite, decreased mobility, for the last day or so she has lost her will to continue in my opinion -despite our efforts during dialysis her oxygen requirements are increasing, does have generalized anasarca, upon edema, bilateral edema -I have broaden the antibiotic coverage for coverage of possible aspiration event however she is not improving -She also has a cavitary lung mass, concerning for malignancy, however pleural fluid cultures came back negative, the pathology came back negative, but still concerning for malignancy, possible squamous cell cancer, patient in the past has voiced that she would like to undergo biopsy and possible chemotherapy -I was honest with patient, given her current status her poor functional status, I do not see how she could tolerate a biopsy and chemotherapy -She also not tolerating dialysis well, and that I feel that she would benefit for CRRT -I also discussed the time sensitive issue in terms of heparin-induced thrombocytopenia, she needs plasmapheresis she needs appointment biopsy, she needs a multidisciplinary team, she needs transfer to a tertiary level center -Options that I presented: -Transfer to [facility] level center such as [facility], for multidisciplinary team, bone or biopsy, plasmapheresis, specialist, support, CRRT. This option would allow patient to pursue further medical intervention, so that she could get b sherrie to the point of possibly tolerating a biopsy or chemotherapy, or even eventually going home or to a skilled nursing -Pursuing hospice/comfort care, emphasizing a quality of life, treating her pain, treating her suffering, allow her to be with family -I had an extensive discussion with patient's son, daughter and patient -Patient voiced that she did not want to be transferred, she understands the risks that are associated with not being transferred, the risks associated with not being treated for hepatitis thrombocytopenia, the risks of not getting dialysis, the risk of not getting treated for her respiratory failure, risk of not being treated for her anemia, the risks of stopping all medical intervention, she does not want any more aggressive interventions, she is tired, she does not want dialysis anymore, she does not want to have treatment for her cancer anymore -I discussed in detail hospice comfort care patient and family voiced understanding, all questions answered, agreed to proceed with hospice -Patient does not want to have any dialysis on hospice -Patient and family voiced understanding, all questions answered, agreed to proceed with hospice, comfort care -In terms of CODE STATUS, after discussion of risks and benefits, she voiced understanding, all questions answered, she would like to change her CODE STATUS to DNR/DNI Medications: Reviewed: Yes Vitals/I&O/Wt Last Vital Signs Temp 97.5 F L 03/03/21 08:00 Pulse 87 03/03/21 08:01 Resp 16 03/03/21 08:01 BP 134/60 03/03/21 08:00 Pulse Ox 96 03/03/21 08:01 03/03/21 03/03/21 03/03/21 06:59 14:59 22:59 Intake Total 1331 / 2315 280 / 280 Output Total 50 / 100 Balance 1281 / 2215 280 / 280 Weight last 48 hrs Weight 68.243 kg Weight 67.585 kg Physical Exam Const: COMMON NORMALS: patient oriented x3 GENERAL APPEARANCE: ill appearing and frail appearing ORIENTATION/CONSCIOUSNESS: Yes awake, Yes oriented to person and Yes oriented to place Neck/C-Spine: COMMON NORMALS: no lymphadenopathy and Thyroid normal THYROID: Thyroid normal Chest: COMMONS NORMALS: normal inspection of the chest OTHER: Multiple bruising across the chest Resp: COMMON NORMALS: normal respiratory effort, No retractions and No use of accessory muscles AUSCULTATION: crackles OTHER: Decreased aeration bilateral lower lung méndez Cardio: COMMON NORMALS: regular rate, S1 normal heart sound present, S2 normal heart sound present, No gallops present (Cardio), No clicks present (Cardio) and No murmurs present (Cardio) RATE: regular rate RHYTHM: abnormal rhythm HEART SOUNDS: S1 normal heart sound present, S2 normal heart sound present and no murmurs GI: COMMON NORMALS: Normal to inspection, nondistended, normoactive bowel sounds present, Soft to palpation, non-tender and No hepatosplenomegaly present PALPATION: Yes Soft to palpation and Yes No hepatosplenomegaly present : OTHER: Escobar catheter in place Extremity: COMMON NORMALS: full ROM and no calf tenderness NARRATIVE EXTREMITY EXAM: 1+ pitting edema bilaterally, generalized anasarca Neuro: COMMON NORMALS: patient oriented x3 SENSORIUM/ORIENTATION: Yes oriented to person and Yes oriented to place Psych: COMMON NORMALS: mental status grossly normal, Normal thought process present and cooperative THOUGHT PROCESS: Normal thought process present Skin: NARRATIVE SKIN EXAM: Generalized anasarca Urinary Catheter Management^: Escobar: Cath Placed During This Visit: yes Reason for Continuing Indwelling Catheter: Accurate Measurement of Urinary Output in Critically Ill Patients Urinary Catheter Date of Insertion: 02/17/21 Urinary Catheter Time of Insertion: 14:30 Data : 03/03/21 03:40 03/03/21 03:40 Micro: Microbiology 02/25/21 11:30 Gram Stain - Final Pleural Fluid Anaerobic Culture - Preliminary Body Fluid Culture - Final 03/02/21 12:00 Urine Culture - Preliminary Urine,Clean Catch Yeast A&P Assessment and plan (1) Acute respiratory failure with hypoxia: -Proceeding with inpatient hospice/comfort care -Inpatient hospice comfort care orders -Consult case management -Secondary to right upper lobe pneumonia/left upper and left lower lobe, systolic and diastolic CHF exacerbation, A. fib with RVR, cavitary lung mass, bilateral pleural effusions -Echocardiogram from January 06, 2021 shows ejection fraction of 45%, global hypokinesis, grade 4 out of 4 diastolic dysfunction, severely elevated filling pressures, moderate pulmonary hypertension, right ventricular systolic pressure 52.7 mmHg - anterior segment right upper lobe spiculated mass with evidence of early cavitation dimensions approximately 37 mm x 25 mm x 34 mm. Concern for primary lung carcinoma. Moderate left pleural and small right pleural effusion -Status post thoracocentesis, 1200 mL drained on the left, seems transudative, pathology pending, Gram stain no organisms, moderate white blood cells -On chest x-ray yesterday, had a small left apical pneumothorax, no respiratory distress, no chest pain complaints, chest x-ray this morning does not clinically show significant pneumothorax -Chest x-ray shows improved pulmonary vascular congestion -Still has has anasarca, 1+ pitting edema, chest x-ray does show improved pulmonary vascular congestion, crackles on exam -Did tolerate dialysis well yesterday, will try another dialysis session today with dopamine, she continues to have generalized anasarca, -This morning she just feels ill, poor appetite, she is quite withdrawn, in the afternoon she is requiring up to 9 L Plan: -Continue to monitor in ICU -continue vancomycin, renal dose, monitor respiratory status closely, DuoNeb, oxygen therapy, flutter valve, incentive spirometer, -Due to concerns for aspiration, add Primaxin, aspiration precautions - blood cultures negative, urine bacterial antigens negative, MRSA in sputum culture, urine culture positive for staph aureus - Cardizem 90 every 6 hours -Dopamine drip to maintain MAP greater than 75 during dialysis -Plan on dialysis today -[place] response to Bumex therapy -Right tunneled dialysis catheter in place -Left subclavian line in place -Did have a small left apical pneumothorax seen on chest x-ray on 02/28/2020 -For now anticoagulation is contraindicated given hemoptysis, GI bleed, Hemoccult positive stools -Hemoglobin 8.2, status post 2 units PRBC -Platelet count 23,000, likely ERIC, has not received any heparin products throughout her hospitalization, except during dialysis catheter placement during dialysis. No overt signs of bleeding, but does have significant bruising will do HIT panel, peripheral smear does not show any pseudoclumping, stop Zyvox monitor platelet count, monitor for bleeding, avoid heparin products, can give agrotoban during dialysis, give 1 unit of platelets, recheck CBC at 6 PM, 70 mg of prednisone daily -Na 134, likely secondary to poor oral intake, will receive dialysis -PT OT, speech therapy -Has protein calorie malnutrition, hypoalbuminemia, likely contributing to anasarca, will have this speech therapy and nutrition's to see patient -Severe deconditioning, muscle wasting, nurses to get up into a chair -SCDs for DVT prophylaxis not placed due to severe lower extremity pain, anticoagulation contraindicated given GI bleed, hemoptysis, patient understands the risks of not having her on anticoagulation and SCDs, risk of DVTs and PEs, voiced understanding, all questions answered, declined SCDs, anticoagulation contraindicated due to anemia, concerns for lower GI bleed, Hemoccult positive stools, bilateral lower extremity ultrasounds negative for DVT, continue to monitor -Unfortunately continues to have a poor appetite, decreased mobility -Full code -Patient is healthcare power of title attorney is her brother Nestor, information is in the chart -Overall she has a poor performance status -Prognosis is guarded plan for today add Primaxin, will have hemodialysis, monitor platelet count, transfuse platelet count, give prednisone, monitor clinical status, will have pulmonary team assessed patient Status: Acute (2) Paroxysmal A-fib: Cardiology on consult Status: Acute (3) Anemia: Continue to monitor, likely multifactorial from acute renal failure, Hemoccult positive stool slow GI bleed Status: Acute Qualifiers: Anemia type: due to chronic kidney disease Chronic kidney disease stage: stage 4 (severe) Qualified Code(s): N18.4 - Chronic kidney disease, stage 4 (severe); D63.1 - Anemia in chronic kidney disease (4) Hematochezia due to medication: Status: Acute (5) Acute kidney injury superimposed on chronic kidney disease: Status: Acute (6) CHF (congestive heart failure): Status: Chronic Qualifiers: Heart failure type: systolic Heart failure chronicity: acute on chronic Qualified Code(s): I50.23 - Acute on chronic systolic (congestive) heart failure (7) UTI (urinary tract infection): -MRSA UTI, with Escobar catheter in place, on Zyvox Status: Acute Qualifiers: Urinary tract infection type: site unspecified Hematuria presence: without hematuria Qualified Code(s): N39.0 - Urinary tract infection, site not specified (8) 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 -Pulmonary on consult -Discussed options including biopsy, chemo, surgery, hospice -Wants to pursue treatment, pursue biopsy if needed, pursue chemo -Thoracocentesis pathology, no malignant cells seen -Pulmonary on consult Status: Acute (9) Bilateral pleural effusion: -Will undergo thoracocentesis, also for cytology Status: Acute (10) Anasarca: Status: Acute (11) Protein calorie malnutrition: Status: Acute (12) Physical deconditioning: Status: Acute (13) Hypoalbuminemia: Status: Acute (14) Thrombocytopenia: Status: Acute (15) Pneumothorax on left: Status: Acute (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: Status: Acute (17) Left renal mass: -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 -Known since previous admissions, has a as of yet to follow-up with outpatient urology -I did discuss with urology, they felt that this likely looks like a benign cyst on imaging, however will need outpatient follow-up Status: Acute (18) Right upper lobe pneumonia: on broad-spectrum antibiotic therapy, on 4 L, sputum cultures grew MRSA, discontinue Primaxin, switch to vancomycin Status: Acute Attestations Medical Necessity Statement*: Patient requires hospitalization for inpatient hospice/comfort care Coding Level of Care Code Acute Manager [employer] for [facility] F[employer] Diagnoses Acute respiratory failure with hypoxia J96.01 Paroxysmal A-fib I48.0 Anemia N18.4; D63.1 Anemia type: due to chronic kidney disease Chronic kidney disease stage: stage 4 (severe) Hematochezia due to medication K92.1; [id number] Acute kidney injury superimposed on chronic kidney disease N17.9; N18.9 CHF (congestive heart failure) I50.23 Heart failure type: systolic Heart failure chronicity: acute on chronic UTI (urinary tract infection) N39.0 Urinary tract infection type: site unspecified Hematuria presence: without hematuria 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
[2021-03-03 17:03] LABS: Heparin-Induced Platelet AB Negative (Negative)
--- NOTE | 2021-03-03 17:08 | P.PN_ITS ---
Subjective Subjective: Interval history: Ms. Riley was seen at bedside today morning Labs and imaging reviewed and patient has persistent thrombocytopenia today 17,000 and drop in H&H Patient and family agreed for comfort care given her overall prognosis with advanced heart failure and ESRD on dialysis and cavitary right upper lobe lung lesion suspicious for malignancy Medications: Reviewed: Yes Vitals/I&O/Wt Last Vital Signs Temp 97.5 F L 03/03/21 08:00 Pulse 87 03/03/21 08:01 Resp 16 03/03/21 08:01 BP 134/60 03/03/21 08:00 Pulse Ox 96 03/03/21 08:01 03/03/21 03/03/21 03/03/21 06:59 14:59 22:59 Intake Total 1331 / 2315 280 / 280 Output Total 50 / 100 Balance 1281 / 2215 280 / 280 Weight last 48 hrs Weight 150 lb 7.201 oz Weight 149 lb Physical Exam Narrative: EXAM NARRATIVE: General: alert, NAD HEENT: conj clear, EOMI, PERRL, mmm, Neck: supple, no meningismus Heme: no cervical LAP Pulmonary: Reduced breath sounds on both bases Cardiovascular: rrr, nl s1s2, no mrg Abdomen: soft, nt, nd, no r/g, bs+ Extremities: pulses +, 1+ pitting pedal edema, no c/c : no CVA tenderness Skin: intact, ecchymosis all over anterior chest wall and bilateral hands MSK: no back or neck pain Neurologic: grossly intact Urinary Catheter Management^: Escobar: Cath Placed During This Visit: yes Reason for Continuing Indwelling Catheter: Accurate Measurement of Urinary Output in Critically Ill Patients Urinary Catheter Date of Insertion: 02/17/21 Urinary Catheter Time of Insertion: 14:30 Data : 03/03/21 03:40 03/03/21 03:40 Other Labs: Laboratory Results WBC 8.2 10^3/uL (4.0-10.0) 03/03/21 03:40 RBC 2.26 10^6/uL (4.1-5.3) L 03/03/21 03:40 Hgb 6.4 g/dL (11.5-15.3) L* 03/03/21 03:40 Hct 20.3 % (37.0-47.0) L* 03/03/21 03:40 MCV 89.8 fL (81-99) 03/03/21 03:40 MCH 28.3 pg (28.0-34.0) 03/03/21 03:40 MCHC 31.5 g/dL (30.0-36.0) 03/03/21 03:40 RDW 18.1 % (12.1-15.1) H 03/03/21 03:40 Plt Count 17 10^3/cmm (130-400) L* 03/03/21 03:40 MPV 12.5 fL (7.4-10.4) H 03/03/21 03:40 Neut % (Auto) 91.2 % 03/03/21 03:40 Lymph % (Auto) 7.3 % 03/03/21 03:40 [place] % (Auto) 1.0 % 03/03/21 03:40 Eos % (Auto) 0.0 % 03/03/21 03:40 Baso % (Auto) 0.1 % 03/03/21 03:40 Reticulocyte % (Auto) 0.5 % (0.5-2.0) 03/02/21 04:30 Neut # (Auto) 7.51 10^3/uL (1.8-7.7) 03/03/21 03:40 Lymph # (Auto) 0.6 10^3/uL (0.8-4.8) L 03/03/21 03:40 [place] # (Auto) 0.1 10^3/uL (0.2-0.9) L 03/03/21 03:40 Eos # (Auto) 0.0 10^3/uL (0.0-0.8) 03/03/21 03:40 Baso # (Auto) 0.0 10^3/uL (0.0-0.1) 03/03/21 03:40 Nucleated RBC % (auto) 0 % 03/03/21 03:40 Nucleated RBCs # 0.0 /100WBC 03/03/21 03:40 Differential Comment Yes 02/25/21 11:30 ESR 18 mm/hr (0-15) H 02/20/21 04:35 Haptoglobin 44.0 mg/L (30-200) 03/02/21 04:30 Heparin Require Pat 0.010 02/28/21 09:11 Heparin Require Pat 0.015 OD UNITS 02/28/21 09:11 PT 18.10 SECONDS (12.1-14.9) H 03/03/21 08:04 INR 1.46 (0.8-1.2) H 03/03/21 08:04 APTT 32.4 SECONDS (23.9-36.7) 03/03/21 08:04 Fibrinogen 167 mg/dL (174-498) L 03/03/21 08:04 Fibrin Degrad Products Pos, 10-40 ug/mL (NEG) H 03/03/21 08:04 D-Dimer 2.82 ug/mIFEU (0-0.59) H 03/03/21 08:04 Specimen Type Arterial 03/03/21 08:44 Sample Site Radial, left 03/03/21 08:44 ABG pH 7.37 (7.35-7.45) 03/03/21 08:44 ABG pCO2 44.8 mmHg (35-45) 03/03/21 08:44 ABG pO2 62.3 mmHg (80.0-100.0) L 03/03/21 08:44 ABG HCO3 26.0 mmol/L (22-26) 03/03/21 08:44 ABG O2 Saturation 96.4 03/02/21 12:55 ABG Base Excess 0.5 mmol/L (-2.0-2.0) 03/03/21 08:44 Deven Test Pos 03/03/21 08:44 A-a O2 Gradient 1.9 mmHg (5-10) L 03/02/21 12:55 Hematocrit 27.4 % (37-47) L 03/03/21 08:44 Hgb O2 Saturation 93.8 % (95-100) L 03/02/21 12:55 Carboxyhemoglobin 1.5 %THgb (0.4-20.1) 03/02/21 12:55 Methemoglobin 1.3 % (0.4-1.5) 03/02/21 12:55 Total Hemoglobin 8.4 g/dL (12-16) L 03/02/21 12:55 Sodium 135.0 mmol/L (131-143) 03/02/21 12:55 Potassium 3.6 mmol/L (3.5-5.0) 03/02/21 12:55 Glucose 128.0 mg/dL (70-115) H 03/02/21 12:55 Ionized Calcium 1.2 mmol/L (1.1-1.4) 03/02/21 12:55 O2 Delivery Device Nc 03/03/21 08:44 O2 Liters/Min 1.0 % 03/03/21 08:44 FiO2 32.0 % 02/28/21 05:02 Insole Tape Stitcher [place] ID Cak 03/03/21 08:44 Sodium 135 mmol/L (136-145) L 03/03/21 03:40 Potassium 4.1 mmol/L (3.5-5.1) 03/03/21 03:40 Chloride 99 mmol/L (98-107) 03/03/21 03:40 Carbon Dioxide 27 mmol/L (22-29) 03/03/21 03:40 Anion Gap 13.1 (5-19) 03/03/21 03:40 BUN 42 mg/dL (8-23) H 03/03/21 03:40 Creatinine 3.2 mg/dL (0.5-0.9) H 03/03/21 03:40 GFR Calculation Not Reportable 03/03/21 03:40 Glucose 144 mg/dL (65-115) H 03/03/21 03:40 Calculated Osmolality 293 mOsm/kg (285-295) 03/03/21 03:40 Lactate 1.4 mmol/L (0.5-2.2) 03/03/21 03:40 Calcium 8.2 mg/dL (8.5-10.5) L 03/03/21 03:40 Phosphorus 2.5 mg/dL (2.5-4.5) 03/03/21 03:40 Magnesium 1.9 mg/dL (1.7-2.3) 03/03/21 03:40 Iron 51 ug/dL (37-145) 02/23/21 15:05 Iron Cancelled 02/23/21 15:05 TIBC 85 mcg/dl 02/23/21 15:05 % Saturation 60.0 % (20-50) H 02/23/21 15:05 Unsat Iron Binding 34 ug/dL (112-347) L 02/23/21 15:05 Ferritin 286 ng/mL (15-150) H 02/23/21 15:05 Total Bilirubin 1.9 mg/dL (0.15-1.2) H 03/03/21 03:40 Direct Bilirubin 1.30 mg/dL (0.00-0.30) H 03/02/21 04:30 Indirect Bilirubin 0.70 03/02/21 04:30 GGT 111 U/L (5-36) H 03/02/21 04:30 AST 18 U/L (0-32) 03/03/21 03:40 ALT < 5 U/L (0-33) 03/03/21 03:40 Alkaline Phosphatase 219 IU/L (35-105) H 03/03/21 03:40 Lactate Dehydrogenase 215 U/L (135-214) H 03/01/21 03:45 Creatine Kinase 13 U/L (26-192) L 02/20/21 04:35 Troponin T Baseline 70 ng/L (0-10) H 02/17/21 10:53 Troponin T 120 Minute 80.91 ng/L (0-10) H 02/17/21 13:03 Delta Troponin T 10.91 ABS# (0-10) H* 02/17/21 13:03 Troponin T Hi Sens 6Hr 74.81 ng/L (0-10) H 02/17/21 16:41 Troponin T Hi Sens 6Hr Delta 4.81 ng/L (0-12) 02/17/21 16:41 C-Reactive Protein 9.4 mg/L (0.0-4.9) H 03/03/21 03:40 NT-Pro-B Natriuret Pep 9326 pg/mL (0-450) H 03/03/21 03:40 Total Protein 5.4 g/dL (6.6-8.7) L 03/03/21 03:40 Albumin 3.6 g/dL (3.5-5.2) 03/03/21 03:40 Globulin 1.8 g/dL (1.3-4.6) 03/03/21 03:40 Ifbdn-9-Bpuuzxaaz 0.5 g/dL (0.2-0.3) H 02/23/21 15:05 Pxeet-9-Niyypkclb 0.5 g/dL (0.5-0.9) 02/23/21 15:05 Urls-8-Fhqdnxbv 0.2 g/dL (0.4-0.6) L 02/23/21 15:05 Igph-7-Cyqqhvgz 0.3 g/dL (0.2-0.5) 02/23/21 15:05 Gamma Globulins 1.3 g/dL (0.8-1.7) 02/23/21 15:05 Abnorm Protein Band 1 0.6 g/dL (NONE DETECTED) H 02/23/21 15:05 25-OH Vitamin D Total 33 ng/mL (30-100) 02/24/21 05:18 Procalcitonin 0.47 ng/mL (0-0.5) 03/03/21 03:40 TSH 0.58 uIU/mL (0.27-4.20) 02/23/21 15:05 PTH Intact 144.7 pg/mL (15-65) H 02/24/21 05:18 Calcium (PTH Intact) 7.0 mg/dL (8.5-10.5) L 02/24/21 05:18 Random Cortisol 16.73 ug/dL (2.47-19.5) 02/23/21 15:05 Urine Color Brown (Yellow) 03/02/21 12:00 Urine Appearance Turbid (CLEAR) 03/02/21 12:00 Urine pH 6.5 (5-7) 03/02/21 12:00 Ur Specific [place] 1.015 (1.005-1.030) 03/02/21 12:00 Urine Protein 2+ (Negative) H 03/02/21 12:00 Urine Glucose (UA) Norm (Normal) 03/02/21 12:00 Urine Ketones 1+ (Negative) H 03/02/21 12:00 Urine Blood 3+ (Negative) H 03/02/21 12:00 Urine Nitrate Negative (Negative) 03/02/21 12:00 Urine Bilirubin 1+ (Negative) H 03/02/21 12:00 Urine Urobilinogen 4 mg/dL (Negative) H 03/02/21 12:00 Ur Leukocyte Esterase 2+ (Negative) H 03/02/21 12:00 Urine RBC Too numerous to cnt /hpf (0-2) H 03/02/21 12:00 Urine WBC 5-10 /hpf (0-5) H 03/02/21 12:00 Ur Squamous Epith Cells 0-4 /hpf (0-5) H 03/02/21 12:00 Amorphous Sediment Not Reportable 03/02/21 12:00 Urine Bacteria 4+ /hpf (NONE) H 03/02/21 12:00 Hyaline Casts 5-10 /lpf H 02/24/21 05:00 Urine Yeast 3+ /hpf H 03/02/21 12:00 U Abnormal Prot Band 2 Not Reportable 02/23/21 15:05 U Abnormal Prot Band 3 Not Reportable 02/23/21 15:05 Fluid Color Yellow 02/25/21 11:30 Fluid Appearance Cloudy 02/25/21 11:30 Fluid Specific Grav 1.010 02/25/21 11:30 Fluid pH 8.0 02/25/21 11:30 Fluid WBC 300 /uL 02/25/21 11:30 Fluid RBC 2.000 10^3/uL 02/25/21 11:30 Fld Polynuclear WBCs # 0.155 02/25/21 11:30 Fld Polynuclear WBCs % 51.700 % 02/25/21 11:30 Fl Mononucl WBCs #(Auto) 0.145 02/25/21 11:30 Fl Mononuclear % Auto 48.300 % 02/25/21 11:30 Fluid Glucose 99.0 mg/dL 02/25/21 11:30 Fluid Albumin 0.6 g/dL 02/25/21 11:30 Fluid LDH 64 U/L 02/25/21 11:30 Fluid Amylase 18 U/L 02/25/21 11:30 Fluid Alk Phosphatase 14 IU/L 02/25/21 11:30 Fluid Cholesterol 6 mg/dL (0-200) 02/25/21 11:30 Fluid Triglycerides 21 mg/dL (0-150) 02/25/21 11:30 Fluid Uric Acid 11 mg/dL 02/25/21 11:30 Pleural Total Protein 1.0 g/dL 02/25/21 11:30 Pro Electrophoresis Int See note 02/23/21 15:05 Heparin-induced Ab Negative (NEGATIVE) 02/28/21 09:11 Heparin-induced Plt Ab Negative (Negative) 02/28/21 09:11 Hepatitis A IgM Ab Non-reactive (Nonreactive) 02/20/21 04:35 Hep Bs Antigen Non-reactive (Nonreactive) 02/27/21 08:25 Hep Bs Antibody 3.5 (11.5-1000) L 02/27/21 08:25 Hep B Core Total Ab Non-reactive (Nonreactive) 02/27/21 08:25 Hep B Core IgM Ab Non-reactive (Nonreactive) 02/20/21 04:35 Hepatitis C Antibody Non-reactive (Nonreactive) 02/27/21 08:25 HIV 1&2 Ab & HIV 1 Ag Non-reactive (Non-Reactiv) 02/20/21 04:35 HIV 1&2 Antibody Non-reactive (Non-Reactiv) 02/20/21 04:35 SARS-CoV-2 Ag (Rapid) Negative (Negative) 03/03/21 09:30 Ref Test Comments Negative (Negative) 02/23/21 15:05 Blood Type O Positive 02/28/21 09:11 Rho(D) Type Positive / 4+ 02/28/21 09:11 Antibody Screen Negative 02/28/21 09:11 Crossmatch See Detail 02/28/21 09:11 Impressions Renal Ultrasound 02/19/21 11:07 IMPRESSION: 1. Echogenic kidneys consistent with a medical renal disease. 2. 4.3 cm benign left renal cyst. 3. No hydronephrosis. 4. Bilateral pleural effusions larger on the left side. Chest CT 02/23/21 13:34 IMPRESSION: 1. Interval development of a anterior segment right upper lobe spiculated mass with evidence of early cavitation dimensions approximately 37 mm x 25 mm x 34 mm. Concern for primary lung carcinoma. 2. Moderate volume left pleural effusion and small volume right. 3. Left upper and left lower lobe consolidated alveolar airspace disease. 4. Mild centrilobular emphysema with associated COPD/chronic bronchitis. 5. Small volume pericardial effusion. 6. Advanced 3 vessel coronary artery disease. 7. Middle mediastinal prominent lymph nodes. 8. Other nonurgent, nonemergent, chronic, and age related findings as detailed in text above. Radiation Dose CTDIVOL = (mGy): DLP = 498.62 (mGy-cm) ADDENDUM: 02/23/21 5517 THIS REPORT CONTAINS FINDINGS THAT MAY BE CRITICAL TO PATIENT CARE. The findings were verbally communicated via telephone conference with Nino Goodman at 6:30 PM CDT on 02/23/2021. The findings were acknowledged and understood. Radiation Dose CTDIVOL = (mGy): DLP = 498.62 (mGy-cm) C-Arm Fluoroscopy 02/27/21 10:41 IMPRESSION: Images obtained for intraoperative purposes. Abdomen Ultrasound 03/03/21 07:00 IMPRESSION: 1. Diffuse infiltration liver. 2. Prior cholecystectomy. 3. No hydronephrosis in right kidney. 4. Small right pleural effusion with mild ascites. Chest X-Ray 03/03/21 07:00 Impression: No change in congestive heart failure from yesterday. Abdomen/Pelvis CT 03/03/21 07:53 IMPRESSION: 1. Mild diffuse fatty infiltration of the liver. 2. Small bilateral pleural effusions with compressive atelectasis in the lung bases. 3. Gallbladder appears to be contracted with multiple large gallstones. This is similar in appearance to January 30, 2021. Recommend correlation with surgical history. This will be reevaluated with ultrasound. 4. Sigmoid diverticulosis with mild thickening. 5. Recommend correlation for diverticulitis. 6. Escobar catheter. 7. No drainable ascites. Minimal perihepatic and pelvic ascites. 8. Mid pole simple left renal cyst measuring 4.3 x 4.1 cm Micro: Microbiology 02/25/21 11:30 Gram Stain - Final Pleural Fluid Anaerobic Culture - Preliminary Body Fluid Culture - Final 03/02/21 12:00 Urine Culture - Preliminary Urine,Clean Catch Yeast A&P Assessment and plan (1) Acute respiratory failure with hypoxia: Status: Acute (2) CHF (congestive heart failure): Status: Chronic Qualifiers: Heart failure type: systolic Heart failure chronicity: acute on chronic Qualified Code(s): I50.23 - Acute on chronic systolic (congestive) heart failure (3) Atrial fibrillation with rapid ventricular response: Status: Acute (4) Bilateral pleural effusion: Status: Acute (5) Pneumonia: Status: Acute Qualifiers: Pneumonia type: due to unspecified organism Laterality: left Lung location: upper lobe of lung Qualified Code(s): J18.9 - Pneumonia, unspecified organism (6) 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: Status: Acute (7) Left renal mass: Status: Acute (8) Anemia: Status: Acute Qualifiers: Anemia type: due to chronic kidney disease Chronic kidney disease stage: stage 4 (severe) Qualified Code(s): N18.4 - Chronic kidney disease, stage 4 (severe); D63.1 - Anemia in chronic kidney disease (9) Acute kidney injury superimposed on chronic kidney disease: Status: Acute (10) UTI (urinary tract infection): Status: Acute Qualifiers: Urinary tract infection type: site unspecified Hematuria presence: without hematuria Qualified Code(s): N39.0 - Urinary tract infection, site not specified (11) MRSA pneumonia: Status: Acute Qualifiers: Laterality: left Lung location: upper lobe of lung Qualified Code(s): J15.212 - Pneumonia due to Methicillin resistant Staphylococcus aureus (12) Need for comfort care: Status: Acute #Acute respiratory failure with hypoxia #Bilateral pleural effusion left greater than right #Right upper lung spiculated mass with cavitation concerning for malignancy #Centrilobular emphysema in patient history of [id number] smoking quit 1999 #Atrial fibrillation with RVR #Acute on chronic congestive heart failure-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 echogenic mass on echo 01/26/2021-suspicious subvalvular calcified apparatus vs thrombus #Exophytic mass arising from the left kidney midpole concerning for renal cell carcinoma #[place] on CKD stage IV likely due to cardiorenal syndrome #MRSA pneumonia and MRSA UTI - Patient and family opted for inpatient hospice and comfort care -Orders were changed accordingly and patient moved to medical floors I will sign off case -inform hospitalist taking care of the patient Attestations Medical Necessity Statement*: Patient currently for inpatient hospice and comfort care Time Spent in Patient Care: 16 - 35 minutes (>than 50% of time spent in counselling and/or direct pt care on unit) . Critical Care Time: Critical Care Time (min): 30 Coding Level of Care Code Established Pt Acute Room Cooler Installer for Gaby Curry Patient Type Established History Comprehensive Exam Comprehensive Medical Decision Making Moderate Complexity Diagnoses Acute respiratory failure with hypoxia J96.01 CHF (congestive heart failure) I50.23 Heart failure type: systolic Heart failure chronicity: acute on chronic Atrial fibrillation with rapid ventricular response I48.91 Bilateral pleural effusion J90 Pneumonia J18.9 Pneumonia type: due to unspecified organism Laterality: left Lung location: upper lobe of lung 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 J98.4 Left renal mass N28.89 Anemia N18.4; D63.1 Anemia type: due to chronic kidney disease Chronic kidney disease stage: stage 4 (severe) Acute kidney injury superimposed on chronic kidney disease N17.9; N18.9 UTI (urinary tract infection) N39.0 Urinary tract infection type: site unspecified Hematuria presence: without hematuria MRSA pneumonia J15.212 Laterality: left Lung location: upper lobe of lung Need for comfort care Time Spent (min) 30
[2021-03-03] MEDS: morphine 4 mg/mL SDV 1 mL IVP ×2 (17:41→23:47)
--- NOTE | 2021-03-03 17:53 | PC.RESP ---
Pt's family at bedside and refuse vitals and treatment.
[2021-03-04 02:47] VITALS: RESP 16
[2021-03-04] MEDS: morphine 4 mg/mL SDV 1 mL IVP ×2 (02:47→15:31)
--- NOTE | 2021-03-04 06:01 | PC.NURSE ---
SHIFT SUMMARY Has rested quietly. Received Morphine IV as needed for pain. Repositioned for comfort. Only had 150ml brown/red urine output per Escobar this shift. Takes little po. Is on comfort care
--- NOTE | 2021-03-04 06:49 | PC.NURSE ---
PAIN Daughter had talked with nurse before leaving last evening and expressed desire for pt to receive IV Morphine through night to keep her comfortable. When RN took it in this am pt declined it. She stated she was not hurting and didnt think she needed to take it right now
--- NOTE | 2021-03-04 09:21 | PC.SOCIAL ---
IMM not updated as patient is on comfort care and discussing hospice..
[2021-03-04 15:31] VITALS: RESP 20
[2021-03-04] MEDS: LORazepam 2 mg/mL INJ 1 mL IVP (18:22)
--- NOTE | 2021-03-05 06:57 | PC.NURSE ---
Shift Summary Patient rested well throughout the night. Patient denied any pain or discomfort each time she was asked; only complaint patient had was being too hot. Covers were removed and air was turned down to make the patient more comfortable.
--- NOTE | 2021-03-05 08:35 | PC.NURSE ---
Pt offered morphine for SOB. Pt stated she is not in pain. This nurse educated pt that morphine can be used for SOB and pain. Pt continues to deny need for morphine. Will continue to reassess pain and respiratory status.
[2021-03-05 11:11] VITALS: RESP 24
[2021-03-05] MEDS: morphine 4 mg/mL SDV 1 mL IVP ×6 (11:11→15:56)
[2021-03-05 12:12] VITALS: RESP 25
[2021-03-05 13:07] VITALS: RESP 28
[2021-03-05 13:43] VITALS: RESP 24
--- NOTE | 2021-03-05 14:05 | PM.PN ---
Subjective Subjective: Interval history: Patient was seen this morning, family members at bedside, she can only say a few words, she squeezes my finger, she is struggling to breathe, she has had a poor appetite overnight, Vitals/I&O/Wt Last Vital Signs Temp 97.5 F L 03/03/21 08:00 Pulse 87 03/03/21 08:01 Resp 24 H 03/05/21 13:43 BP 134/60 03/03/21 08:00 Pulse Ox 96 03/03/21 08:01 03/04/21 03/05/21 03/05/21 22:59 06:59 14:59 Intake Total 120 / 600 Output Total 100 / 100 Balance 120 / 600 -100 / 500 Physical Exam Const: GENERAL APPEARANCE: ill appearing and frail appearing Resp: EFFORT & INSPECTION: Yes abnormal respiratory pattern, Yes tachypneic, Yes respiratory distress and Yes labored AUSCULTATION: rhonchi and wheezes Cardio: COMMON NORMALS: S1 normal heart sound present and S2 normal heart sound present RATE: tachycardic HEART SOUNDS: S1 normal heart sound present, S2 normal heart sound present and Murmur heart sound present GI: COMMON NORMALS: Normal to inspection, nondistended, normoactive bowel sounds present Urinary Catheter Management^: Escobar: Cath Placed During This Visit: yes Reason for Continuing Indwelling Catheter: Hospice/Comfort/Palliative Care Urinary Catheter Date of Insertion: 02/17/21 Urinary Catheter Time of Insertion: 14:30 Data : 03/03/21 03:40 03/03/21 03:40 Micro: Microbiology 03/02/21 12:00 Urine Culture - Final Urine,Clean Catch Roma tropicalis 02/25/21 11:30 Gram Stain - Final Pleural Fluid Anaerobic Culture - Final Body Fluid Culture - Final A&P Assessment and plan (1) Acute respiratory failure with hypoxia: -Respiratory status and mentation have rapidly decline, continue inpatient comfort care -Proceeding with inpatient hospice/comfort care -Inpatient hospice comfort care orders -Consult case management -Secondary to right upper lobe pneumonia/left upper and left lower lobe, systolic and diastolic CHF exacerbation, A. fib with RVR, cavitary lung mass, bilateral pleural effusions -Echocardiogram from January 06, 2021 shows ejection fraction of 45%, global hypokinesis, grade 4 out of 4 diastolic dysfunction, severely elevated filling pressures, moderate pulmonary hypertension, right ventricular systolic pressure 52.7 mmHg - anterior segment right upper lobe spiculated mass with evidence of early cavitation dimensions approximately 37 mm x 25 mm x 34 mm. Concern for primary lung carcinoma. Moderate left pleural and small right pleural effusion -Status post thoracocentesis, 1200 mL drained on the left, seems transudative, pathology pending, Gram stain no organisms, moderate white blood cells -On chest x-ray yesterday, had a small left apical pneumothorax, no respiratory distress, no chest pain complaints, chest x-ray this morning does not clinically show significant pneumothorax -Chest x-ray shows improved pulmonary vascular congestion -Still has has anasarca, 1+ pitting edema, chest x-ray does show improved pulmonary vascular congestion, crackles on exam -Did tolerate dialysis well yesterday, will try another dialysis session today with dopamine, she continues to have generalized anasarca, -This morning she just feels ill, poor appetite, she is quite withdrawn, in the afternoon she is requiring up to 9 L Plan: -Continue to monitor in ICU -continue vancomycin, renal dose, monitor respiratory status closely, DuoNeb, oxygen therapy, flutter valve, incentive spirometer, -Due to concerns for aspiration, add Primaxin, aspiration precautions - blood cultures negative, urine bacterial antigens negative, MRSA in sputum culture, urine culture positive for staph aureus - Cardizem 90 every 6 hours -Dopamine drip to maintain MAP greater than 75 during dialysis -Plan on dialysis today -[place] response to Bumex therapy -Right tunneled dialysis catheter in place -Left subclavian line in place -Did have a small left apical pneumothorax seen on chest x-ray on 02/28/2020 -For now anticoagulation is contraindicated given hemoptysis, GI bleed, Hemoccult positive stools -Hemoglobin 8.2, status post 2 units PRBC -Platelet count 23,000, likely ERIC, has not received any heparin products throughout her hospitalization, except during dialysis catheter placement during dialysis. No overt signs of bleeding, but does have significant bruising will do HIT panel, peripheral smear does not show any pseudoclumping, stop Zyvox monitor platelet count, monitor for bleeding, avoid heparin products, can give agrotoban during dialysis, give 1 unit of platelets, recheck CBC at 6 PM, 70 mg of prednisone daily -Na 134, likely secondary to poor oral intake, will receive dialysis -PT OT, speech therapy -Has protein calorie malnutrition, hypoalbuminemia, likely contributing to anasarca, will have this speech therapy and nutrition's to see patient -Severe deconditioning, muscle wasting, nurses to get up into a chair -SCDs for DVT prophylaxis not placed due to severe lower extremity pain, anticoagulation contraindicated given GI bleed, hemoptysis, patient understands the risks of not having her on anticoagulation and SCDs, risk of DVTs and PEs, voiced understanding, all questions answered, declined SCDs, anticoagulation contraindicated due to anemia, concerns for lower GI bleed, Hemoccult positive stools, bilateral lower extremity ultrasounds negative for DVT, continue to monitor -Unfortunately continues to have a poor appetite, decreased mobility -Full code -Patient is healthcare power of assistant city attorney is her brother Nestor, information is in the chart -Overall she has a poor performance status -Prognosis is guarded plan for today add Primaxin, will have hemodialysis, monitor platelet count, transfuse platelet count, give prednisone, monitor clinical status, will have pulmonary team assessed patient Status: Acute (2) Paroxysmal A-fib: Cardiology on consult Status: Acute (3) Anemia: Continue to monitor, likely multifactorial from acute renal failure, Hemoccult positive stool slow GI bleed Status: Acute Qualifiers: Anemia type: due to chronic kidney disease Chronic kidney disease stage: stage 4 (severe) Qualified Code(s): N18.4 - Chronic kidney disease, stage 4 (severe); D63.1 - Anemia in chronic kidney disease (4) Hematochezia due to medication: Status: Acute (5) Acute kidney injury superimposed on chronic kidney disease: Status: Acute (6) CHF (congestive heart failure): Status: Chronic Qualifiers: Heart failure type: systolic Heart failure chronicity: acute on chronic Qualified Code(s): I50.23 - Acute on chronic systolic (congestive) heart failure (7) UTI (urinary tract infection): -MRSA UTI, with Escobar catheter in place, on Zyvox Status: Acute Qualifiers: Urinary tract infection type: site unspecified Hematuria presence: without hematuria Qualified Code(s): N39.0 - Urinary tract infection, site not specified (8) 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 -Pulmonary on consult -Discussed options including biopsy, chemo, surgery, hospice -Wants to pursue treatment, pursue biopsy if needed, pursue chemo -Thoracocentesis pathology, no malignant cells seen -Pulmonary on consult Status: Acute (9) Bilateral pleural effusion: -Will undergo thoracocentesis, also for cytology Status: Acute (10) Anasarca: Status: Acute (11) Protein calorie malnutrition: Status: Acute (12) Physical deconditioning: Status: Acute (13) Hypoalbuminemia: Status: Acute (14) Thrombocytopenia: Status: Acute (15) Pneumothorax on left: Status: Acute (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: Status: Acute (17) Left renal mass: -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 -Known since previous admissions, has a as of yet to follow-up with outpatient urology -I did discuss with urology, they felt that this likely looks like a benign cyst on imaging, however will need outpatient follow-up Status: Acute (18) Right upper lobe pneumonia: on broad-spectrum antibiotic therapy, on 4 L, sputum cultures grew MRSA, discontinue Primaxin, switch to vancomycin Status: Acute Additional A&P Information Plan for today increase diuretic therapy, monitor blood pressures, monitor heart rates, await family and patient's decision for dialysis, possibly require dialysis in the next 24-48 hrs., Attestations Medical Necessity Statement*: Patient requires hospitalization for inpatient comfort care Coding Level of Care Code 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 [facility] Diagnoses Acute respiratory failure with hypoxia J96.01 Paroxysmal A-fib I48.0 Anemia N18.4; D63.1 Anemia type: due to chronic kidney disease Chronic kidney disease stage: stage 4 (severe) Hematochezia due to medication K92.1; T50.905A Acute kidney injury superimposed on chronic kidney disease N17.9; N18.9 CHF (congestive heart failure) I50.23 Heart failure type: systolic Heart failure chronicity: acute on chronic UTI (urinary tract infection) N39.0 Urinary tract infection type: site unspecified Hematuria presence: without hematuria 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
--- NOTE | 2021-03-05 18:00 | PM.PN ---
Subjective Subjective: Interval history: progress note from 03/04/2021 patient was seen tis am, she is on comfort care, family says she hardly is complaining of pain, but she clearly is in pain, patient says she is doing fine, she was happy to see all her family members last night Vitals/I&O/Wt Last Vital Signs Temp 97.5 F L 03/03/21 08:00 Pulse 87 03/03/21 08:01 Resp 24 H 03/05/21 13:43 BP 134/60 03/03/21 08:00 Pulse Ox 96 03/03/21 08:01 03/05/21 03/05/21 03/05/21 06:59 14:59 22:59 Output Total 100 / 100 Balance -100 / 500 Physical Exam Const: GENERAL APPEARANCE: ill appearing and frail appearing Resp: COMMON NORMALS: normal respiratory effort, No retractions and No use of accessory muscles AUSCULTATION: wheezes Cardio: COMMON NORMALS: regular rate, regular rhythm, S1 normal heart sound present and S2 normal heart sound present RATE: regular rate RHYTHM: regular rhythm HEART SOUNDS: S1 normal heart sound present and S2 normal heart sound present GI: COMMON NORMALS: Normal to inspection, nondistended, normoactive bowel sounds present Urinary Catheter Management^: Escobar: Cath Placed During This Visit: yes Reason for Continuing Indwelling Catheter: Hospice/Comfort/Palliative Care Urinary Catheter Date of Insertion: 02/17/21 Urinary Catheter Time of Insertion: 14:30 Data : 03/03/21 03:40 03/03/21 03:40 Micro: Microbiology 03/02/21 12:00 Urine Culture - Final Urine,Clean Catch Roma tropicalis 02/25/21 11:30 Gram Stain - Final Pleural Fluid Anaerobic Culture - Final Body Fluid Culture - Final A&P Assessment and plan (1) Acute respiratory failure with hypoxia: -Respiratory status and mentation have rapidly decline, continue inpatient comfort care -Proceeding with inpatient hospice/comfort care -Inpatient hospice comfort care orders -Consult case management -Secondary to right upper lobe pneumonia/left upper and left lower lobe, systolic and diastolic CHF exacerbation, A. fib with RVR, cavitary lung mass, bilateral pleural effusions -Echocardiogram from January 06, 2021 shows ejection fraction of 45%, global hypokinesis, grade 4 out of 4 diastolic dysfunction, severely elevated filling pressures, moderate pulmonary hypertension, right ventricular systolic pressure 52.7 mmHg - anterior segment right upper lobe spiculated mass with evidence of early cavitation dimensions approximately 37 mm x 25 mm x 34 mm. Concern for primary lung carcinoma. Moderate left pleural and small right pleural effusion -Status post thoracocentesis, 1200 mL drained on the left, seems transudative, pathology pending, Gram stain no organisms, moderate white blood cells -On chest x-ray yesterday, had a small left apical pneumothorax, no respiratory distress, no chest pain complaints, chest x-ray this morning does not clinically show significant pneumothorax -Chest x-ray shows improved pulmonary vascular congestion -Still has has anasarca, 1+ pitting edema, chest x-ray does show improved pulmonary vascular congestion, crackles on exam -Did tolerate dialysis well yesterday, will try another dialysis session today with dopamine, she continues to have generalized anasarca, -This morning she just feels ill, poor appetite, she is quite withdrawn, in the afternoon she is requiring up to 9 L Plan: -Continue to monitor in ICU -continue vancomycin, renal dose, monitor respiratory status closely, DuoNeb, oxygen therapy, flutter valve, incentive spirometer, -Due to concerns for aspiration, add Primaxin, aspiration precautions - blood cultures negative, urine bacterial antigens negative, MRSA in sputum culture, urine culture positive for staph aureus - Cardizem 90 every 6 hours -Dopamine drip to maintain MAP greater than 75 during dialysis -Plan on dialysis today -[place] response to Bumex therapy -Right tunneled dialysis catheter in place -Left subclavian line in place -Did have a small left apical pneumothorax seen on chest x-ray on 02/28/2020 -For now anticoagulation is contraindicated given hemoptysis, GI bleed, Hemoccult positive stools -Hemoglobin 8.2, status post 2 units PRBC -Platelet count 23,000, likely ERIC, has not received any heparin products throughout her hospitalization, except during dialysis catheter placement during dialysis. No overt signs of bleeding, but does have significant bruising will do HIT panel, peripheral smear does not show any pseudoclumping, stop Zyvox monitor platelet count, monitor for bleeding, avoid heparin products, can give agrotoban during dialysis, give 1 unit of platelets, recheck CBC at 6 PM, 70 mg of prednisone daily -Na 134, likely secondary to poor oral intake, will receive dialysis -PT OT, speech therapy -Has protein calorie malnutrition, hypoalbuminemia, likely contributing to anasarca, will have this speech therapy and nutrition's to see patient -Severe deconditioning, muscle wasting, nurses to get up into a chair -SCDs for DVT prophylaxis not placed due to severe lower extremity pain, anticoagulation contraindicated given GI bleed, hemoptysis, patient understands the risks of not having her on anticoagulation and SCDs, risk of DVTs and PEs, voiced understanding, all questions answered, declined SCDs, anticoagulation contraindicated due to anemia, concerns for lower GI bleed, Hemoccult positive stools, bilateral lower extremity ultrasounds negative for DVT, continue to monitor -Unfortunately continues to have a poor appetite, decreased mobility -Full code -Patient is healthcare power of french cord binder is her brother Nestor, information is in the chart -Overall she has a poor performance status -Prognosis is guarded plan for today add Primaxin, will have hemodialysis, monitor platelet count, transfuse platelet count, give prednisone, monitor clinical status, will have pulmonary team assessed patient Status: Acute (2) Paroxysmal A-fib: Cardiology on consult Status: Acute (3) Anemia: Continue to monitor, likely multifactorial from acute renal failure, Hemoccult positive stool slow GI bleed Status: Acute Qualifiers: Anemia type: due to chronic kidney disease Chronic kidney disease stage: stage 4 (severe) Qualified Code(s): N18.4 - Chronic kidney disease, stage 4 (severe); D63.1 - Anemia in chronic kidney disease (4) Hematochezia due to medication: Status: Acute (5) Acute kidney injury superimposed on chronic kidney disease: Status: Acute (6) CHF (congestive heart failure): Status: Chronic Qualifiers: Heart failure type: systolic Heart failure chronicity: acute on chronic Qualified Code(s): I50.23 - Acute on chronic systolic (congestive) heart failure (7) UTI (urinary tract infection): -MRSA UTI, with Escobar catheter in place, on Zyvox Status: Acute Qualifiers: Urinary tract infection type: site unspecified Hematuria presence: without hematuria Qualified Code(s): N39.0 - Urinary tract infection, site not specified (8) 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 -Pulmonary on consult -Discussed options including biopsy, chemo, surgery, hospice -Wants to pursue treatment, pursue biopsy if needed, pursue chemo -Thoracocentesis pathology, no malignant cells seen -Pulmonary on consult Status: Acute (9) Bilateral pleural effusion: -Will undergo thoracocentesis, also for cytology Status: Acute (10) Anasarca: Status: Acute (11) Protein calorie malnutrition: Status: Acute (12) Physical deconditioning: Status: Acute (13) Hypoalbuminemia: Status: Acute (14) Thrombocytopenia: Status: Acute (15) Pneumothorax on left: Status: Acute (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: Status: Acute (17) Left renal mass: -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 -Known since previous admissions, has a as of yet to follow-up with outpatient urology -I did discuss with urology, they felt that this likely looks like a benign cyst on imaging, however will need outpatient follow-up Status: Acute (18) Right upper lobe pneumonia: on broad-spectrum antibiotic therapy, on 4 L, sputum cultures grew MRSA, discontinue Primaxin, switch to vancomycin Status: Acute Additional A&P Information Plan for today increase diuretic therapy, monitor blood pressures, monitor heart rates, await family and patient's decision for dialysis, possibly require dialysis in the next 24-48 hrs., Attestations Medical Necessity Statement*: progress note from 03/04/2021 requires hospitalization for comfort care Coding Level of Care Code Acute 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 for [facility] Fwd Diagnoses Acute respiratory failure with hypoxia J96.01 Paroxysmal A-fib I48.0 Anemia N18.4; D63.1 Anemia type: due to chronic kidney disease Chronic kidney disease stage: stage 4 (severe) Hematochezia due to medication K92.1; T50.905A Acute kidney injury superimposed on chronic kidney disease N17.9; N18.9 CHF (congestive heart failure) I50.23 Heart failure type: systolic Heart failure chronicity: acute on chronic UTI (urinary tract infection) N39.0 Urinary tract infection type: site unspecified Hematuria presence: without hematuria 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
--- NOTE | 2021-03-05 18:46 | PC.NURSE ---
This nurse was informed by SERVICE DESK TECHNICIAN that pt was not breathing. This nurse and charge nurse confirmed time of at 1818.
--- NOTE | 2021-03-05 21:43 | PC.NURSE ---
2005 post mortum care provided, iv's and bailey removed intact.
--- NOTE | 2021-03-05 21:45 | PC.NURSE ---
[facility] here to collect pt, paperwork signed and provided.
[2021-03-07 12:12] LABS: Vit D 1,25 (Oh)2, Total <8 pg/mL (18-72); Vit D2 1,25 (Oh)2 <8 pg/mL; Vit D3 1,25 (Oh)2 <8 pg/mL
[2021-03-10 00:08] LABS: UFH High Dose, 100 IU/ML 0 % release; UFH Low Dose, 0.1 IU/ML 0 % release; UFH Low Dose, 0.5 IU/ML 0 % release; UFH SRA Result NEGATIVE (NEGATIVE)
--- NOTE | 2021-03-15 15:51 | P.DES_ITS ---
Discharge Providers DDS Date of Admission: 02/17/21 13:29 Date Summary Completed: 03/15/21 Attending Provider at Admission: Long Quintero MD Attending Provider at Discharge: Long Quintero MD Primary Care Provider: Mary Castellano MD DS Diagnoses Hospital Diagnoses (1) Acute respiratory failure with hypoxia: (2) Paroxysmal A-fib: (3) Anemia: Qualifiers: Anemia type: due to chronic kidney disease Chronic kidney disease stage: stage 4 (severe) Qualified Code(s): N18.4 - Chronic kidney disease, stage 4 (severe); D63.1 - Anemia in chronic kidney disease (4) Hematochezia due to medication: (5) Acute kidney injury superimposed on chronic kidney disease: (6) CHF (congestive heart failure): Qualifiers: Heart failure type: systolic Heart failure chronicity: acute on chronic Qualified Code(s): I50.23 - Acute on chronic systolic (congestive) heart failure (7) UTI (urinary tract infection): Qualifiers: Urinary tract infection type: site unspecified Hematuria presence: without hematuria Qualified Code(s): N39.0 - Urinary tract infection, site not specified (8) 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: (9) Bilateral pleural effusion: (10) Anasarca: (11) Protein calorie malnutrition: (12) Physical deconditioning: (13) Hypoalbuminemia: (14) Thrombocytopenia: (15) Pneumothorax on left: (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: (17) Left renal mass: (18) Right upper lobe pneumonia: Reason for Visit Reason for Visit: CHF EXACERBATION/ EDEMA Summary Date and Time of Date of : 03/15/21 Summary Summary: Janelle Riley is a 85 year old female with a past medical history of systolic and diastolic heart failure, COPD, pulmonary pretension, paroxysmal atrial fibrillation, not on anticoagulation due to hemoptysis, GI bleed, aortic stenosis, chronic anemia, who presents to [facility] due to cough, shortness of breath, fatigue, malaise, elevated heart rate, increased oxygen requirements. Patient was admitted to [facility] for acute on chronic respiratory failure with hypoxia secondary to right upper lobe pneumonia, left upper and left lower lobe pneumonia, systolic and diastolic CHF, A. fib with RVR, cavitary lung mass, bilateral pleural effusions. Patient was admitted to [facility], received inpatient diuresis, broad-spectrum antibiotic therapy, multiple regimens for heart rate control, oxygen therapy, however given her chronic kidney disease, urine output remains lackluster, nephrology was consulted, pulmonary was consulted, she had a dialysis catheter placed, with inpatient dialysis. Patient received inpatient dialysis, however it was complicated with hypotensive episodes, somewhat of a lackluster fluid removal. She also received a thoracocentesis for pleural effusion. She continued to have bilateral extremity edema, generalized anasarca, shortness of breath, increased oxygen requirements. Patient subsequently developed heparin-induced thrombocytopenia. Hematology was consulted, she did receive platelet transfusion, given the complexity of patient's case history of GI bleeds, concerns for bleeding versus thrombosis, they recommended transfer to tertiary level center. After discussion with patient and family, discussion was made to transfer to to tertiary level center for CRRT, for her lung mass, and for multispecialty team at a tertiary level center to manage her heparin-induced thrombocytopenia, given her underlying chronic medical problems. However after discussion with patient and family, patient wanted to proceed with comfort care. After discussion of the risks and benefits, all parties voiced understanding, all questions answered, patient agreed to proceed with comfort care. Patient was made comfort care. Patient 03/15/2021. on 03/03/2021 -Review of patient's labs shows that her hemoglobin 6.4, her platelet count 17,000, she did receive 1 unit PRBC this morning, 1 unit of platelet this morning -Her hemolytic labs did not show significant hemolysis, her peripheral smear did not show any significant evidence of hemolysis, her D-dimer is elevated, FDP is positive, some possible component of DIC -I discussed the case with Dr. 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 -Unfortunately giving patient platelets does carry risk of thrombosis, unless she is actively bleeding, -I have done a CAT scan, no evidence of retroperitoneal bleed currently -I did do a CT scan with contrast, advised patient that there is a risk of kidney damage with giving contrast, but as we are concerned for bleeding I think that the risks outweigh the benefits, advised risk and benefits, which yesterday, all questions answered, agreed to proceed -Nonetheless given her platelets does carry a significant risk of thrombosis -And giving her a greater than given her history of GI bleeds, Hemoccult positive stools, anemia does carry the risk of significant bleeding, hemorrhage, GI bleed -Unfortunately this is a difficult situation -We feel that patient needs a multidisciplinary team for her anemia, thrombocytopenia or hepatitis thrombocytopenia, -In addition she needs a multidisciplinary team to perform a bone marrow biopsy, if the results need to be available immediately, here in our hospital it can take up to week to get the results -In addition she does need urgent plasmapheresis, along with a multidisciplinary team, a tertiary level center -In addition her last 2 rounds of dialysis with better, she did well with dopamine, but it still difficult to get adequate amount of fluid off of her she continues to have generalized anasarca, after requirements have increased, continues to have evidence of pulmonary edema, bilateral extremity edema, I feel that she would be better served its CRRT, that can only be done in [facility] level center -I discussed with patient that I feel that she would be better served in a tertiary level center like [facility] -Patient says that she wants to talk to her son and her daughter -Early in the morning I had a meeting with patient's son Edwin, daughter, and patient -I advised that currently patient status is stable but critical -I discussed her poor functional status and as she remains bedbound, poor appetite, decreased mobility, for the last day or so she has lost her will to continue in my opinion -despite our efforts during dialysis her oxygen requirements are increasing, does have generalized anasarca, upon edema, bilateral edema -I have broaden the antibiotic coverage for coverage of possible aspiration ev ent however she is not improving -She also has a cavitary lung mass, concerning for malignancy, however pleural fluid cultures came back negative, the pathology came back negative, but still concerning for malignancy, possible squamous cell cancer, patient in the past has voiced that she would like to undergo biopsy and possible chemotherapy -I was honest with patient, given her current status her poor functional status, I do not see how she could tolerate a biopsy and chemotherapy -She also not tolerating dialysis well, and that I feel that she would benefit for CRRT -I also discussed the time sensitive issue in terms of heparin-induced thrombocytopenia, she needs plasmapheresis she needs appointment biopsy, she needs a multidisciplinary team, she needs transfer to a tertiary level center -Options that I presented: -Transfer to tertiary level center such as [facility], for multidisciplinary team, bone or biopsy, plasmapheresis, specialist, support, CRRT. This option would allow patient to pursue further medical intervention, so that she could get better to the point of possibly tolerating a biopsy or chemotherapy, or even eventually going home or to a residential -Pursuing hospice/comfort care, emphasizing a quality of life, treating her pain, treating her suffering, allow her to be with family -I had an extensive discussion with patient's son, daughter and patient -Patient voiced that she did not want to be transferred, she understands the risks that are associated with not being transferred, the risks associated with not being treated for hepatitis thrombocytopenia, the risks of not getting dialysis, the risk of not getting treated for her respiratory failure, risk of not being treated for her anemia, the risks of stopping all medical intervention, she does not want any more aggressive interventions, she is tired, she does not want dialysis anymore, she does not want to have treatment for her cancer anymore -I discussed in detail hospice comfort care patient and family voiced understanding, all questions answered, agreed to proceed with hospice -Patient does not want to have any dialysis on hospice -Patient and family voiced understanding, all questions answered, agreed to proceed with hospice, comfort care -In terms of CODE STATUS, after discussion of risks and benefits, she voiced understanding, all questions answered, she would like to change her CODE STATUS to DNR/DNI Acute respiratory failure with hypoxia: -Secondary to right upper lobe pneumonia/left upper and left lower lobe, systolic and diastolic CHF exacerbation, A. fib with RVR, cavitary lung mass, bilateral pleural effusions -Echocardiogram from January 06, 2021 shows ejection fraction of 45%, global hypokinesis, grade 4 out of 4 diastolic dysfunction, severely elevated filling pressures, moderate pulmonary hypertension, right ventricular systolic pressure 52.7 mmHg - anterior segment right upper lobe spiculated mass with evidence of early cavitation dimensions approximately 37 mm x 25 mm x 34 mm. Concern for primary lung carcinoma. Moderate left pleural and small right pleural effusion -Status post thoracocentesis, 1200 mL drained on the left, seems transudative, pathology pending, Gram stain no organisms, moderate white blood cells -On chest x-ray yesterday, had a small left apical pneumothorax, no respiratory distress, no chest pain complaints, chest x-ray this morning does not clinically show significant pneumothorax -Chest x-ray shows improved pulmonary vascular congestion -Still has has anasarcapitting edema, chest x-ray does show improved pulmonary vascular congestion, crackles on exam -Did tolerate dialysis well, somewhat of a lackluster response, continues to have generalized anasarca, fluid overload -Currently managed with broad-spectrum antibiotic therapy - Cardizem 90 every 6 hours -Dopamine drip to maintain MAP greater than 75 during dialysis -[place] response to Bumex therapy -Right tunneled dialysis catheter in place -Left subclavian line in place -Did have a small left apical pneumothorax seen on chest x-ray on 02/28/2020 -For now anticoagulation is contraindicated given hemoptysis, GI bleed, Hemoccult positive stools -Hemoglobin 8.2, status post 2 units PRBC -Platelet count 23,000, likely ERIC, has not received any heparin products throughout her hospitalization, except during dialysis catheter placement during dialysis. No overt signs of bleeding, but does have significant bruising will do HIT panel, peripheral smear does not show any pseudoclumping, stop Zyvox monitor platelet count, monitor for bleeding, avoid heparin products, can give agrotoban during dialysis, give 1 unit of platelets, recheck CBC at 6 PM, 70 mg of prednisone daily -Na 134, likely secondary to poor oral intake, will receive dialysis -PT OT, speech therapy -Has protein calorie malnutrition, hypoalbuminemia, likely contributing to anasarca, will have this speech therapy and nutrition's to see patient -Severe deconditioning, muscle wasting, nurses to get up into a chair -SCDs for DVT prophylaxis not placed due to severe lower extremity pain, anticoagulation contraindicated given GI bleed, hemoptysis, patient understands the risks of not having her on anticoagulation and SCDs, risk of DVTs and PEs, voiced understanding, all questions answered, declined SCDs, anticoagulation contraindicated due to anemia, concerns for lower GI bleed, Hemoccult positive stools, bilateral lower extremity ultrasounds negative for DVT, continue to monitor -Unfortunately continues to have a poor appetite, decreased mobility (2) Paroxysmal A-fib: Cardiology on consult Status: Acute (3) Anemia: Continue to monitor, likely multifactorial from acute renal failure, Hemoccult positive stool slow GI bleed Status: Acute Qualifiers: Anemia type: due to chronic kidney disease Chronic kidney disease stage: stage 4 (severe) Qualified Code(s): N18.4 - Chronic kidney disease, stage 4 (severe); D63.1 - Anemia in chronic kidney disease (4) Hematochezia due to medication: Status: Acute (5) Acute kidney injury superimposed on chronic kidney disease: Status: Acute (6) CHF (congestive heart failure): Status: Chronic Qualifiers: Heart failure type: systolic Heart failure chronicity: acute on chronic Qualified Code(s): I50.23 - Acute on chronic systolic (congestive) heart failure (7) UTI (urinary tract infection): -MRSA UTI, with Escobar catheter in place, on Zyvox Status: Acute Qualifiers: Urinary tract infection type: site unspecified Hematuria presence: without hematuria Qualified Code(s): N39.0 - Urinary tract infection, site not specified (8) 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 -Pulmonary on consult -Discussed options including biopsy, chemo, surgery, hospice -Wants to pursue treatment, pursue biopsy if needed, pursue chemo -Thoracocentesis pathology, no malignant cells seen -Pulmonary on consult Status: Acute (9) Bilateral pleural effusion: -Will undergo thoracocentesis, also for cytology Status: Acute (10) Anasarca: Status: Acute (11) Protein calorie malnutrition: Status: Acute (12) Physical deconditioning: Status: Acute (13) Hypoalbuminemia: Status: Acute (14) Thrombocytopenia: Status: Acute (15) Pneumothorax on left: Status: Acute (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: Status: Acute (17) Left renal mass: -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 -Known since previous admissions, has a as of yet to follow-up with outpatient urology -I did discuss with urology, they felt that this likely looks like a benign cyst on imaging, however will need outpatient follow-up Status: Acute (18) Right upper lobe pneumonia: Additional Data Advance directives?: No Discharge Plan Discharge Patient Disposition: Condition: Stable Prescriptions: No Action acetaminophen [Tylenol] 325 mg tablet 325 mg PO QID PRN (Reason: Pain) RF: 0 pantoprazole 40 mg tablet,delayed release (DR/EC) 40 mg PO BID@,17 RF: 0 bisacodyl [Dulcolax (bisacodyl)] 10 mg Suppository 10 mg MO DAILY PRN (Reason: Constipation) RF: 0 atorvastatin 40 mg tablet 40 mg PO BEDTIME@1999 RF: 0 sucralfate [Carafate] 1 gram tablet 1 g PO BID@ RF: 0 potassium chloride [Klor-Con M20] 20 mEq tablet,ER particles/crystals 40 meq PO DAILY@08 RF: 0 docusate sodium [DOK] 100 mg capsule 100 mg PO BID@799,1999 RF: 0 sevelamer carbonate 800 mg tablet 800 mg PO DAILY@1700 RF: 0 Lasix 40 mg Tablet 40 mg PO BID RF: 0 prednisone 5 mg Tablet 5 mg PO DAILY RF: 0 diltiazem HCl 120 mg Capsule,Extended Release 12 Hr 120 mg PO BID RF: 0 DS Attestations Time Spent in /Discharge Care*: greater than 30 min Quality - AMI: AMI present?: No Quality - Stroke: CVA present?: No Quality - VTE: VTE present?: No Coding Level of Care Code Acute Product Representative for [facility] Fwd Diagnoses Acute respiratory failure with hypoxia J96.01 Paroxysmal A-fib I48.0 Anemia N18.4; D63.1 Anemia type: due to chronic kidney disease Chronic kidney disease stage: stage 4 (severe) Hematochezia due to medication K92.1; T50.905A Acute kidney injury superimposed on chronic kidney disease N17.9; N18.9 CHF (congestive heart failure) I50.23 Heart failure type: systolic Heart failure chronicity: acute on chronic UTI (urinary tract infection) N39.0 Urinary tract infection type: site unspecified Hematuria presence: without hematuria 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
== END 2021-03-05 21:40 | disposition expired | DRG 177 ==
LOC: ER 10:47 → CSU 14:21 → ICU 02-24 18:12 → MEDSURG 03-03 12:27
PROVIDERS: Internal Medicine; Internal Medicine Nephrology; Internal Medicine Pulmonary Disease; Surgery; Admitting Provider Family Medicine; Emergency Provider Family Medicine; PCP Family Medicine; Visit Provider Family Medicine
PROC: 0JH63XZ Insertion of Tunneled Vascular Access Device into Chest Subcutaneous Tissue and Fascia, Percutaneous Approach (ICD-10-PCS; principal; 2021-02-27 10:30)
PROC: 0JH63XZ Insertion of Tunneled Vascular Access Device into Chest Subcutaneous Tissue and Fascia, Percutaneous Approach (ICD-10-PCS; 2021-02-27 10:30)
DX: J15.212 Pneumonia due to Methicillin resistant Staphylococcus aureus (principal); I50.43 Acute on chronic combined systolic (congestive) and diastolic (congestive) heart failure; J96.21 Acute and chronic respiratory failure with hypoxia; N17.0 Acute kidney failure with tubular necrosis; I21.A1 Myocardial infarction type 2; N18.4 Chronic kidney disease, stage 4 (severe); I13.0 Hypertensive heart and chronic kidney disease with heart failure and stage 1 through stage 4 chronic kidney disease, or unspecified chronic kidney disease; N39.0 Urinary tract infection, site not specified; J93.9 Pneumothorax, unspecified; E87.1 Hypo-osmolality and hyponatremia; E46 Unspecified protein-calorie malnutrition; J90 Pleural effusion, not elsewhere classified; I42.8 Other cardiomyopathies; E87.2 Acidosis; K92.1 Melena; I27.20 Pulmonary hypertension, unspecified; I48.0 Paroxysmal atrial fibrillation; N28.89 Other specified disorders of kidney and ureter; I35.0 Nonrheumatic aortic (valve) stenosis; D63.1 Anemia in chronic kidney disease; M10.9 Gout, unspecified; Z87.891 Personal history of nicotine dependence; Z66 Do not resuscitate; Z51.5 Encounter for palliative care; R91.8 Other nonspecific abnormal finding of lung field; D75.82 Heparin induced thrombocytopenia (HIT); Z68.27 Body mass index [BMI] 27.0-27.9, adult; I25.10 Atherosclerotic heart disease of native coronary artery without angina pectoris; J43.2 Centrilobular emphysema; T50.905A Adverse effect of unspecified drugs, medicaments and biological substances, initial encounter; I95.9 Hypotension, unspecified; E83.42 Hypomagnesemia; E87.5 Hyperkalemia
CPT/HCPCS: 36415; 36430; 36556; 36569; 36592; 36600; 51702; 71045; 71250; 74177; 76000; 76705; 76770; 76937; 77001; 80051; 80053; 80074; 80500; 81001; 82042; 82150; 82247; 82248; 82274; 82306; 82310; 82330; 82465; 82533; 82550; 82652; 82728; 82803; 82805; 82945; 82977; 83010; 83516; 83540; 83550; 83605; 83615; 83735; 83880; 83970; 83986; 84075; 84100; 84145; 84155; 84157; 84165; 84315; 84443; 84478; 84484; 84560; 85014; 85018; 85025; 85045; 85362; 85378; 85384; 85610; 85651; 85730; 86022; 86140; 86403; 86705; 86706; 86803; 86850; 86900; 86920; 87040; 87070; 87075; 87077; 87086; 87102; 87106; 87186; 87205; 87206; 87340; 87426; 87641; 87806; 88305; 89050; 90935; 92523; 92610; 93005; 93970; 94640; 96365; 96366; 96367; 96375; 97110; 97161; 97165; 97530; 97535; 99291; C1750; J0743; J1265; J1644; J1940; J1956; J2020; J2060; J2250; J2270; J2405; J2597; J3370; J3475; J3490; J7030; J7050; J7512; P9016; P9035; P9047; Q3014; Q9967